=== PATIENT | male | born 1960 | race Caucasian/White ===

== ENCOUNTER 2016-08-06 16:07 | Inpatient (IN) ==
[2016-08-06] MEDS ORDERED: 0.9 % Sodium Chloride 1,000 ML ONE (16:17)
[2016-08-06] MEDS ORDERED: Naloxone 0.4 MG/ML INJ IVP ONE (16:18)
[2016-08-06] MEDS ORDERED: 0.9 % Sodium Chloride 1,000 ML IVC ONE ×3 (16:18→17:42)
--- NOTE | 2016-08-06 16:23 | Emergency Department Note ---
Disposition Clinical Impression: Renal insufficiency, Confusion Hypotension Qualifiers: Hypotension type: unspecified hypotension type Qualified Code(s): I95.9 - Hypotension, unspecified Leukocytosis Qualifiers: Leukocytosis type: unspecified Qualified Code(s): D72.829 - Elevated white blood cell count, unspecified Disposition: Admitted As Inpatient Condition: Fair Referrals: Unassigned,Provider [Non-Partnered Physician] - Forms: ED Satisfaction Letter Time of Disposition: 18:11 General Adult HPI - General Chief complaint: ED Shortness of Breath/Dyspnea Stated complaint: low BP & O2 Sats Time Seen by Provider: 08/06/16 16:12 Source: patient, EMS Mode of arrival: EMS Nursing Notes Reviewed: Yes Vital Signs Reviewed: Yes - History of Present Illness HPI Narrative: 56-year-old male who comes in complaining of somnolence. Patient was found by home health to have a blood pressure in the 70 range systolic and a low pulse ox. Squad states that they were able to get a blood pressure of in the 70s also place patient on oxygen and pulse ox came up to the mid 90s on arrival here he is awake he does report answer questions appropriately and his blood pressure is noted to be 60 systolic he is not tachycardic. 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 - Related Data Home Medications Medication Instructions Recorded Confirmed Clopidogrel [Plavix] 75 mg PO DAILY 02/04/15 07/31/15 Fenofibrate [Tricor] 145 mg PO DAILY 02/04/15 07/31/15 Phenytoin [Dilantin] 100 mg PO TID 02/04/15 07/31/15 Ferrous Gluconate 325 mg PO DAILY 07/31/15 07/31/15 Gabapentin [Neurontin] 300 mg PO TID 07/31/15 07/31/15 Hydroxyzine HCl 25 mg PO TID 07/31/15 07/31/15 Insulin LISPRO [HumaLOG] 22 - 30 units SQ TIDAC 07/31/15 07/31/15 Sertraline [Zoloft] 100 mg PO DAILY 07/31/15 07/31/15 Previous Rx's Medication Instructions Recorded Aspirin 81 mg PO DAILY #0 tab.chew 02/05/15 Insulin DETEMIR [Levemir] 26 unit SQ HS #1 vial 02/05/15 Metoprolol XL (24 HR) Succ [Toprol 12.5 mg PO DAILY #30 tab.er.24h 08/03/15 Xl] Nitroglycerin [Nitrostat] 0.4 mg SL Q4H PRN #60 tab.subl 08/03/15 Clindamycin [Cleocin] 600 mg PO Q6HR 10 Days 10/13/15 Allergies Allergy/AdvReac Type Severity Reaction Status Date / Time No Known Allergies Allergy Verified 07/31/15 14:33 Constitutional: Denies: fever, chills, weakness, weight change Eyes: Denies: eye pain, eye discharge, vision change ENT ED: Denies: ear pain, throat pain, dental pain, hearing loss, epistaxis, congestion, dysphagia Cardiovascular: Denies: chest pain, palpitations, dyspnea on exertion, edema, syncope Respiratory: Denies: cough, dyspnea, wheezes, hemoptysis, stridor Gastrointestinal: Denies: abdominal pain, nausea, vomiting, diarrhea, constipation, hematemesis, melena, hematochezia Genitourinary: Denies: urgency, dysuria, frequency, hematuria Musculoskeletal: Denies: back pain, neck pain, arthralgia, myalgia Integumentary: Denies: rash, abrasion, lesions Neurological: Denies: headache, weakness, numbness, paresthesias, confusion, abnormal gait, vertigo Psychiatric: Denies: anxiety, depression, suicidal thoughts, homicidal thoughts , auditory hallucinations, visual hallucinations Endocrine: Denies: fatigue Hematological/Lymphatic: Denies: easy bleeding, easy bruising Allergic/Immunologic: Denies: facial swelling, urticaria Past Medical History - Past Medical History Medical history: Reports: asthma, diabetes, hypertension, myocardial infarction , seizures, other Surgical history: Reports: angioplasty/stent (Cardiac as well as bilateral femoral stents.), IVC Filter, other (Left BKA, thrombectomy) Psychiatric history: Reports: anxiety - Social History Smoking Status: Current every day smoker Smokeless Tobacco Status: No Alcohol use: Reports: none Drug use: Reports: none Physical Exam - General Limitations: no limitations, other (Somnolent but easily arousable and answers questions appropriately) General appearance: alert, in no apparent distress - Head Head exam: atraumatic, normocephalic, normal inspection - Eye Eye exam: Present: normal appearance, PERRL, EOMI - ENT ENT exam: normal exam, normal oropharynx, mucous membranes moist - Neck Neck exam: Present: normal inspection, full ROM, trachea midline - Chest Chest inspection: Present: normal inspection, symmetric chest wall rise - Respiratory Respiratory exam: Present: normal lung sounds bilaterally - Cardiovascular Cardiovascular exam: Present: regular rate, normal rhythm, normal heart sounds - Abdominal Exam Abdominal exam: Present: soft, Non-Tender. Absent: tenderness, distention, guarding, rebound, rigidity - Extremities Exam Extremities exam: Present: normal inspection, full ROM. Absent: tenderness, pedal edema - Expanded Lower Extremity Exam Neurovascular/Tendon exam: Absent: motor deficit, sensory deficit, tendon deficit Gait: not tested/not observed - Back Exam Back exam: Present: normal inspection, full ROM. Absent: tenderness - Neurological Exam Neurological exam: Present: alert, oriented X3 - Psychiatric Psychiatric exam: Present: normal affect, normal mood - Skin Skin exam: Present: warm, dry, intact, normal color Course - Reevaluation(s) Reevaluation #1: 56-year-old who comes in complaining of low blood pressure low pulse ox. Patient was found by home health with a pressure of 74. His been no recent fevers according to the patient. The patient's blood pressures, he is not tachycardic. Lab work does show slight elevation in his white count of 15 chest x-ray was negative. Lactate is pending. Patient's creatinine was elevated at 1.69. Patient was given 3 L of fluid with improvement in his blood pressure to 87. Patient was given Narcan without much change in his status. Patient was given Solu-Cortef. A triple-lumen was placed in anticipation of pressors however his pressure has come up to almost 90. The differential includes sepsis we did treat as such. Also volume depletion. Time: 18:08 - Consultations Consultation #1: Discussed with , it. Time: 18:10 Vital Signs Temperature 97.9 F 08/06/16 16:10 Pulse Rate 87 08/06/16 16:10 Respiratory Rate 14 08/06/16 16:10 Blood Pressure 60/42 08/06/16 16:10 O2 Sat by Pulse Oximetry 97 08/06/16 16:10 Temperature 97.9 F 08/06/16 16:10 Pulse Rate 73 08/06/16 18:00 Respiratory Rate 16 08/06/16 18:00 Blood Pressure 87/54 08/06/16 18:00 O2 Sat by Pulse Oximetry 99 08/06/16 18:00 Oxygen Delivery Oxygen Delivery Nasal Cannula Medical Decision Making - Lab Data Lab results reviewed: Yes I reviewed the patient's lab results. Result diagrams: 08/06/16 16:53 08/06/16 16:53 Lab Results 08/06/16 08/06/16 08/06/16 Range/Units 16:38 16:53 16:53 WBC 15.1 H (4.3-11.1) K/mcL RBC 4.09 L (4.19-5.50) M/mcL Hgb 12.2 L (12.9-16.9) g/dL Hct 35.5 L (37.5-50.1) % MCV 86.8 (83.0-100.0) fL MCH 29.8 (28.0-33.3) pg MCHC 34.4 (31.6-35.5) g/dL RDW 12.8 (11.5-14.5) % Plt Count 441 H (140-400) K/mcL MPV 10.9 (9.4-12.4) fL Immature Gran % 1.3 (0-4) % Seg Neutrophils % 74.8 % Lymphocytes % 14.2 % Monocytes % 8.8 % Eosinophils % 0.5 % Basophils % 0.4 % Neutrophils # 11.3 H (1.6-8.9) K/mcL Lymphocytes # 2.1 (0.6-4.6) K/mcL Monocytes # 1.3 (0.0-1.3) K/mcL Eosinophils # 0.1 (0.0-0.6) K/mcL Basophils # 0.1 (0.0-0.2) K/mcL ABG pH 7.37 (7.32-7.45) pH Units ABG pCO2 46 H (35-45) mmHg ABG pO2 124 H (85-104) mmHg ABG HCO3 26.6 (21-27) mEQ/L ABG Total CO2 28.0 H (20-26) mEq/L ABG O2 Saturation 99 H (95-98) % ABG Base Excess 1.0 (-2.0 to 3.0) mEq/L Blood Gas Modality NC Inspired O2 28 % Sodium 139 (136-145) mEq/L Potassium 3.3 L (3.5-4.5) mEq/L Chloride 105 (98-109) mEq/L Carbon Dioxide 23 (19-29) mEq/L BUN 26 (8-26) mg/dL Creatinine 1.69 H (0.72-1.25) mg/dL Est GFR ( Amer) 51 L (> 60) Est GFR (Non-Af Amer) 42 L (> 60) BUN/Creatinine Ratio 15 (6-26) Glucose 166 H (70-99) mg/dL Calculated Osmolality 297 (280-300) Calcium 9.0 (8.6-10.8) mg/dL Troponin I (0-0.03) ng/mL B-Natriuretic Peptide (0-100) pg/mL 08/06/16 08/06/16 Range/Units 16:53 16:53 WBC (4.3-11.1) K/mcL RBC (4.19-5.50) M/mcL Hgb (12.9-16.9) g/dL Hct (37.5-50.1) % MCV (83.0-100.0) fL MCH (28.0-33.3) pg MCHC (31.6-35.5) g/dL RDW (11.5-14.5) % Plt Count (140-400) K/mcL MPV (9.4-12.4) fL Immature Gran % (0-4) % Seg Neutrophils % % Lymphocytes % % Monocytes % % Eosinophils % % Basophils % % Neutrophils # (1.6-8.9) K/mcL Lymphocytes # (0.6-4.6) K/mcL Monocytes # (0.0-1.3) K/mcL Eosinophils # (0.0-0.6) K/mcL Basophils # (0.0-0.2) K/mcL ABG pH (7.32-7.45) pH Units ABG pCO2 (35-45) mmHg ABG pO2 (85-104) mmHg ABG HCO3 (21-27) mEQ/L ABG Total CO2 (20-26) mEq/L ABG O2 Saturation (95-98) % ABG Base Excess (-2.0 to 3.0) mEq/L Blood Gas Modality Inspired O2 % Sodium (136-145) mEq/L Potassium (3.5-4.5) mEq/L Chloride (98-109) mEq/L Carbon Dioxide (19-29) mEq/L BUN (8-26) mg/dL Creatinine (0.72-1.25) mg/dL Est GFR ( Amer) (> 60) Est GFR (Non-Af Amer) (> 60) BUN/Creatinine Ratio (6-26) Glucose (70-99) mg/dL Calculated Osmolality (280-300) Calcium (8.6-10.8) mg/dL Troponin I 0.00 (0-0.03) ng/mL B-Natriuretic Peptide 26 (0-100) pg/mL - Radiology Data Radiology results reviewed: Yes I reviewed the patient's radiology results. Chest X-Ray 08/06/16 17:41 IMPRESSION: Line placement without complicating feature. D/ / Víctor Smith MD / Víctor Smith MD Interpreting Provider: Víctor Smith MD - EKG Data EKG #1 EKG shows normal: sinus rhythm Rate: normal Rhythm: NSR Interpretation: nonspecific ST-T wave changes
[2016-08-06 16:43] LABS: ABG HCO3 26.6 mEQ/L (21-27); ABG Oxygen Saturation 99 % (95-98); ABG PCO2 46 mmHg (35-45); ABG PH 7.37 pH Units (7.32-7.45); ABG PO2 124 mmHg (85-104); Blood Gas FiO2 28 %
[2016-08-06] MEDS ORDERED: Hydrocortisone Sodium Succ 100 MG/2 ML VIAL IVP ONE (16:58)
[2016-08-06 17:22] LABS: Basophils # 0.1 K/mcL (0.0-0.2); Basophils % 0.4 %; Eosinophils # 0.1 K/mcL (0.0-0.6); Eosinophils % 0.5 %; Hematocrit 35.5 % (37.5-50.1); Hemoglobin 12.2 g/dL (12.9-16.9); Immature Granulocytes % 1.3 % (0-4); Lymphocytes # 2.1 K/mcL (0.6-4.6); Lymphocytes % 14.2 %; Mean Corpuscular HGB Conc 34.4 g/dL (31.6-35.5); Mean Corpuscular Hemoglobin 29.8 pg (28.0-33.3); Mean Corpuscular Volume 86.8 fL (83.0-100.0); Mean Platelet Volume 10.9 fL (9.4-12.4); Monocytes # 1.3 K/mcL (0.0-1.3); Monocytes % 8.8 %; Neutrophils # 11.3 K/mcL (1.6-8.9); Platelet Count 441 K/mcL (140-400); Red Blood Count 4.09 M/mcL (4.19-5.50); Red Cell Distribution Width 12.8 % (11.5-14.5); Segmented Neutrophils % 74.8 %
[2016-08-06 17:36] LABS: Potassium 3.3 mEq/L (3.5-4.5)
[2016-08-06] MEDS ORDERED: Piperacillin/Tazobactam 3.375 GM in D5% in Water (Mini-Bag+) 100 ML IVPB ONE (17:36)
--- NOTE | 2016-08-06 17:44 | Emergency Department Note ---
Disposition Clinical Impression: Hypotension Qualifiers: Hypotension type: unspecified hypotension type Qualified Code(s): I95.9 - Hypotension, unspecified Disposition: Still a Patient Referrals: Unassigned,Provider [Non-Partnered Physician] - Forms: ED Satisfaction Letter General Adult HPI - General Chief complaint: ED Shortness of Breath/Dyspnea Stated complaint: low BP & O2 Sats Time Seen by Provider: 08/06/16 16:12 Source: patient, EMS Mode of arrival: EMS Limitations: no limitations, other (Somnolent but easily arousable and answers questions appropriately) - History of Present Illness Pain Scale: 10 - Related Data Home Medications Medication Instructions Recorded Confirmed Clopidogrel [Plavix] 75 mg PO DAILY 02/04/15 07/31/15 Fenofibrate [Tricor] 145 mg PO DAILY 02/04/15 07/31/15 Phenytoin [Dilantin] 100 mg PO TID 02/04/15 07/31/15 Ferrous Gluconate 325 mg PO DAILY 07/31/15 07/31/15 Gabapentin [Neurontin] 300 mg PO TID 07/31/15 07/31/15 Hydroxyzine HCl 25 mg PO TID 07/31/15 07/31/15 Insulin LISPRO [HumaLOG] 22 - 30 units SQ TIDAC 07/31/15 07/31/15 Sertraline [Zoloft] 100 mg PO DAILY 07/31/15 07/31/15 Previous Rx's Medication Instructions Recorded Aspirin 81 mg PO DAILY #0 tab.chew 02/05/15 Insulin DETEMIR [Levemir] 26 unit SQ HS #1 vial 02/05/15 Metoprolol XL (24 HR) Succ [Toprol 12.5 mg PO DAILY #30 tab.er.24h 08/03/15 Xl] Nitroglycerin [Nitrostat] 0.4 mg SL Q4H PRN #60 tab.subl 08/03/15 Clindamycin [Cleocin] 600 mg PO Q6HR 10 Days 10/13/15 Allergies Allergy/AdvReac Type Severity Reaction Status Date / Time No Known Allergies Allergy Verified 07/31/15 14:33 Constitutional: Denies: fever, chills, weakness, weight change Eyes: Denies: eye pain, eye discharge, vision change ENT ED: Denies: ear pain, throat pain, dental pain, hearing loss, epistaxis, congestion, dysphagia Cardiovascular: Denies: chest pain, palpitations, dyspnea on exertion, edema, syncope Respiratory: Denies: cough, dyspnea, wheezes, hemoptysis, stridor Gastrointestinal: Denies: abdominal pain, nausea, vomiting, diarrhea, constipation, hematemesis, melena, hematochezia Genitourinary: Denies: urgency, dysuria, frequency, hematuria Musculoskeletal: Denies: back pain, neck pain, arthralgia, myalgia Integumentary: Denies: rash, abrasion, lesions Neurological: Denies: headache, weakness, numbness, paresthesias, confusion, abnormal gait, vertigo Psychiatric: Denies: anxiety, depression, suicidal thoughts, homicidal thoughts , auditory hallucinations, visual hallucinations Endocrine: Denies: fatigue Hematological/Lymphatic: Denies: easy bleeding, easy bruising Allergic/Immunologic: Denies: facial swelling, urticaria Past Medical History - Past Medical History Medical history: Reports: asthma, diabetes, hypertension, myocardial infarction , seizures, other Surgical history: Reports: angioplasty/stent (Cardiac as well as bilateral femoral stents.), IVC Filter, other (Left BKA, thrombectomy) Psychiatric history: Reports: anxiety - Social History Smoking Status: Current every day smoker Smokeless Tobacco Status: No Alcohol use: Reports: none Drug use: Reports: none Physical Exam - General Limitations: no limitations, other (Somnolent but easily arousable and answers questions appropriately) General appearance: alert, in no apparent distress Course Course Narrative: I was involved in the placement of a central line in this patient only. Vital Signs Temperature 97.9 F 08/06/16 16:10 Pulse Rate 87 08/06/16 16:10 Respiratory Rate 14 08/06/16 16:10 Blood Pressure 60/42 08/06/16 16:10 O2 Sat by Pulse Oximetry 97 08/06/16 16:10 Temperature 97.9 F 08/06/16 16:10 Pulse Rate 77 08/06/16 17:40 Respiratory Rate 16 08/06/16 17:21 Blood Pressure 80/50 08/06/16 17:40 O2 Sat by Pulse Oximetry 99 08/06/16 17:21 Oxygen Delivery Oxygen Delivery Nasal Cannula Procedures - Central Line Placement Right IJ Central Line Inserted*: Yes Central Line Insertion: emergent Consent Obtained: written consent Procedural Pause: verify patient name and date of , timeout performed per policy, rojelio and assess the site, assemble equipment and verify supplies, perform hand hygiene Patient Placed on Monitor/Pulse Ox: Yes During the Procedure: clinician is wearing sterile gloves, cap, mask,& gown during insertion, sterile field and sterile technique are maintained, patient's face is covered with drape or mask and wearing a cap, everyone in room is wearing a mask Central Line Prep: Chlorhexidine scrub Prep the Procedure Site: apply chloraprep to the skin using a back and forth scrubbing motion, apply chloraprep for 30 seconds (upper body), 1-2 min ( femoral sites), allow prep to dry, drape the patient with a full body drape Local Anesthetic: lidocaine 1% Amount of anesthesia used (mL): 3 Ultrasound Used for Placement: Yes Central Line Lumen Inserted: triple Post Procedure: sutured in place, good blood return, all ports aspirated, flushed, capped, sterile dressing applied, guide wire removed and visualized Patient Tolerated Procedure: well, no complications Complications: none Medical Decision Making - Lab Data Result diagrams: 08/06/16 16:53 08/06/16 16:53 Lab Results 08/06/16 08/06/16 08/06/16 Range/Units 16:38 16:53 16:53 WBC 15.1 H (4.3-11.1) K/mcL RBC 4.09 L (4.19-5.50) M/mcL Hgb 12.2 L (12.9-16.9) g/dL Hct 35.5 L (37.5-50.1) % MCV 86.8 (83.0-100.0) fL MCH 29.8 (28.0-33.3) pg MCHC 34.4 (31.6-35.5) g/dL RDW 12.8 (11.5-14.5) % Plt Count 441 H (140-400) K/mcL MPV 10.9 (9.4-12.4) fL Immature Gran % 1.3 (0-4) % Seg Neutrophils % 74.8 % Lymphocytes % 14.2 % Monocytes % 8.8 % Eosinophils % 0.5 % Basophils % 0.4 % Neutrophils # 11.3 H (1.6-8.9) K/mcL Lymphocytes # 2.1 (0.6-4.6) K/mcL Monocytes # 1.3 (0.0-1.3) K/mcL Eosinophils # 0.1 (0.0-0.6) K/mcL Basophils # 0.1 (0.0-0.2) K/mcL ABG pH 7.37 (7.32-7.45) pH Units ABG pCO2 46 H (35-45) mmHg ABG pO2 124 H (85-104) mmHg ABG HCO3 26.6 (21-27) mEQ/L ABG Total CO2 28.0 H (20-26) mEq/L ABG O2 Saturation 99 H (95-98) % ABG Base Excess 1.0 (-2.0 to 3.0) mEq/L Blood Gas Modality NC Inspired O2 28 % Sodium 139 (136-145) mEq/L Potassium 3.3 L (3.5-4.5) mEq/L Chloride 105 (98-109) mEq/L Carbon Dioxide 23 (19-29) mEq/L BUN 26 (8-26) mg/dL Creatinine 1.69 H (0.72-1.25) mg/dL Est GFR ( Amer) 51 L (> 60) Est GFR (Non-Af Amer) 42 L (> 60) BUN/Creatinine Ratio 15 (6-26) Glucose 166 H (70-99) mg/dL Calculated Osmolality 297 (280-300) Calcium 9.0 (8.6-10.8) mg/dL
[2016-08-06] MEDS ORDERED: Pantoprazole 40 MG VIAL IVP STA (20:11)
[2016-08-06] MEDS ORDERED: Albuterol 2.5 MG/3 ML NEBULIZER IH PRN (20:11)
[2016-08-06] MEDS ORDERED: Acetaminophen 325 MG TABLET PO PRN (20:11)
[2016-08-06] MEDS ORDERED: *HR* Promethazine 25 MG/ML VIAL IVP PRN (20:11)
[2016-08-06] MEDS ORDERED: *HR* Morphine 2 MG/ML SYRINGE IVP PRN (20:11)
[2016-08-06] MEDS ORDERED: Nitroglycerin 0.4 MG TAB.SUBL SL PRN (20:18)
[2016-08-06] MEDS ORDERED: Benzonatate 100 MG CAPSULE PO PRN (20:18)
[2016-08-06] MEDS ORDERED: *HR* Enoxaparin 40 MG/0.4 ML SYRINGE SQ ONE (20:18)
[2016-08-06] MEDS ORDERED: Dextrose Gel 15 GM PO PRN ×2 (20:28)
[2016-08-06] MEDS ORDERED: D5% in Water 1,000 ML IV PRN (20:28)
[2016-08-06] MEDS ORDERED: *HR* Dextrose 50 % in Water (Syg) 50 ML SYRINGE IVP PRN (20:28)
[2016-08-06 20:50] LABS: Estimated Average Glucose > 355 mg/dl; Hemoglobin A1C >= 14.1 %
[2016-08-06] MEDS: 0.9 % Sodium Chloride 1,000 ML IVC SCH (20:51)
[2016-08-06] MEDS ORDERED: Insulin LISPRO 300 UNITS/3 ML VIAL SQ SCH (21:00)
[2016-08-06] MEDS ORDERED: Vancomycin 1,000 MG in D5% in Water 250 ML IVPB SCH ×2 (21:00→22:00)
[2016-08-06] MEDS ORDERED: Insulin DETEMIR 100 UNIT/ML X5UNITS SQ SCH (21:00)
[2016-08-06] MEDS: Ipratropium/Albuterol Neb 3 ML IH SCH (22:16)
[2016-08-06 22:40] LABS: Prothrombin Time 10.8 Seconds (9.4-12.1)
[2016-08-06 22:43] LABS: Activated Partial Thrombo Time 25.4 Seconds (26.0-36.0)
[2016-08-06] MEDS: Gabapentin 400 MG CAPSULE PO SCH (22:45)
[2016-08-06] MEDS: Potassium Chloride Elixir 20 MEQ/15 ML UDC PO SCH (22:45)
[2016-08-06] MEDS: Famotidine 20 MG TABLET PO SCH (22:46)
[2016-08-06 22:47] LABS: Magnesium 1.5 mg/dL (1.6-2.6)
[2016-08-06] MEDS: Nicotine 21 MG PATCH.TD24 TD SCH (22:49)
[2016-08-06 22:50] LABS: Alanine Aminotransferase 13 Units/L (0-55); Albumin 2.9 g/dL (3.5-5.0); Albumin/Globulin Ratio 1.1 (1.1-2.2); Alkaline Phosphatase 60 Units/L (38-126); Aspartate Amino Transferase 18 Units/L (5-34); BUN/Creatinine Ratio 20 (6-26); Bilirubin,Total 0.2 mg/dL (0.2-1.2); Blood Urea Nitrogen 23 mg/dL (8-26); Calcium 7.9 mg/dL (8.6-10.8); Carbon Dioxide 23 mEq/L (19-29); Chloride 110 mEq/L (98-109); Creatine Kinase 707 Units/L (30-200); Globulin 2.6 g/dL (2.4-3.5); Glucose 187 mg/dL (70-99); Osmolality,Calculated 301 (280-300); Potassium 4.1 mEq/L (3.5-4.5); Sodium 141 mEq/L (136-145); Total Protein 5.5 g/dL (6.0-8.3); eGFR For African Americans > 60 (> 60); eGFR For Non-African Americans > 60 (> 60)
[2016-08-06] MEDS: *HR* OxyCODONE Immed Rel 5 MG TABLET PO PRN (22:50)
[2016-08-06 23:11] LABS: Thyroid Stimulating Hormone 0.388 mcIU/mL (0.350-4.840)
[2016-08-06 23:37] LABS: Bilirubin,Urine Negative (Negative); Blood,Urine Small (Negative); Clarity,Urine Clear (Clear); Color,Urine Yellow (Yellow); Glucose,Urine (UA) >=1000 mg/dL (Normal); Ketones,Urine Negative (Negative); Leukocyte Esterase,Urine Negative (Negative); Nitrite,Urine Negative (Negative); Protein,Urine 30 mg/dL (Neg-Trace); Specific Gravity,Urine 1.027 (1.010-1.025); Urobilinogen,Urine Normal (Normal)
[2016-08-06 23:39] LABS: Bacteria,Urine None Seen per hpf (None-Few); Hyaline Casts,Urine None Seen per lpf (None-Few); RBC,Urine 0-3 per hpf (0-3); Squamous Epithelial Cell,Urine Many per lpf (None-Few)
[2016-08-07] MEDS: Hydrocortisone Sodium Succ 100 MG/2 ML VIAL IVP SCH ×4 (00:36→21:23)
[2016-08-07] MEDS: Piperacillin/Tazobactam 3.375 GM in D5% in Water (Mini-Bag+) 100 ML IVPB SCH ×3 (02:11→17:22)
[2016-08-07] MEDS: Potassium Chloride Elixir 20 MEQ/15 ML UDC PO SCH (02:11)
[2016-08-07] MEDS ORDERED: Calcium Gluconate 1,000 MG in D5% in Water 100 ML IVPB ONE (03:04)
[2016-08-07] MEDS ORDERED: Magnesium Sulfate 1 GM in D5% in Water 100 ML IVPB ONE (03:04)
--- NOTE | 2016-08-07 03:14 | Internal Med History&Physical ---
Date of Encounter: 08/06/16 Time of Encounter: 20:00 Assessment and Plan (1) Acute on chronic respiratory failure with hypoxia and hypercapnia Status: Acute . (2) Postural hypotension Status: Acute . (3) Autonomic dysfunction with type 2 diabetes mellitus Status: Acute . (4) Type II diabetes mellitus Status: Chronic . Qualifiers: Diabetes mellitus complication status: with neurologic complications Diabetes mellitus complication detail: with unspecified neuropathy Diabetes mellitus penitentiary insulin use: unspecified terminal make up operator insulin use status Qualified Code(s): E11.40 - Type 2 diabetes mellitus with diabetic neuropathy, unspecified (5) Toxic metabolic encephalopathy Status: Acute . (6) Delirium due to conditions classified elsewhere Status: Acute . (7) SIRS due to infectious process with acute organ dysfunction Status: Acute . (8) Diabetic peripheral autonomic neuropathy Status: Acute . Qualifiers: Diabetes mellitus type: type 2 Qualified Code(s): E11.43 - Type 2 diabetes mellitus with diabetic autonomic (poly)neuropathy (9) At risk for accident in home Status: Acute . (10) At risk for acid-base imbalance Status: Acute . (11) At risk for abnormal blood glucose level Status: Acute . (12) At risk for abnormal gastrointestinal motility Status: Acute . (13) At risk for abuse of opiates Status: Acute . (14) Altered mental status Status: Acute . Qualifiers: Altered mental status type: somnolence Qualified Code(s): R40.0 - Somnolence (15) CAD (coronary artery disease) Status: Chronic . Qualifiers: Coronary Disease-Associated Artery/Lesion type: bypass graft [place] vs. transplanted heart: [place] heart Associated angina: without angina Qualified Code(s): I25.810 - Atherosclerosis of coronary artery bypass graft(s) without angina pectoris (16) HLD (hyperlipidemia) Status: Chronic . Qualifiers: Hyperlipidemia type: mixed hyperlipidemia Qualified Code(s): E78.2 - Mixed hyperlipidemia (17) PVD (peripheral vascular disease) Status: Chronic . (18) Seizure Status: Chronic . Internal Medicine - H&P: HPI Chief complaint: Blood pressure. Low oxygen saturation. Confusion. Admitted From: Emergency Dept Plans for Post Hospital Care: Home History of present illness: Mr. 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 Patient is admitted to the [facility] high in the emergency department which presents by EMS services from home with complaints of difficulty breathing. Patient presents with reports of low blood pressure and low pulse oximetry measurement setting. Had been complaining of some elliptical else obtained blood pressure noting a 70 systolic range, pulse ox. EMS services were called to the home and they were able to manage her blood pressure in the 70 systolic range. Patient was placed on oxygen and pulse oximetry aime to the 90% range. Upon arrival to the ED was no longer somnolent awake and able to answer questions appropriately. Blood pressure was still noted to be roughly 60-70 systolic. Pulse rate however was normal and not tachycardic. Findings the ED: Temperature 97.9 pulse 70-87 respirations 14-16 BP 60-87/42-54 O2 saturation 97-99% per nasal cannula. WBC 15.1 hemoglobin 12.2 platelets 441, 000. Differential showed an increase in neutrophils. Arterial blood gas pH 7.37 PCO2 46 PO2 124 bicarbonate 26.6. Saturation 99%. Liters per nasal cannula. Metabolic panel noted a potassium of 3.3 sodium 139. BUN 26 creatinine 1.69. GFR 42. Glucose 166 osmolality 297. Troponin 0.0. BNP 26. EKG normal sinus rhythm. No acute ischemic changes. Chest x-ray revealed no acute or active cardiopulmonary process. Preliminary impression suggests acute alteration in mental status with evidence of combined severe hypoxemia and severe hypotension. Presentation was not complicated by tachycardia. This situation raises questions of possible adrenal insufficiency versus diabetic autonomic dysfunction. Patient has a significant history of standing medical treatment plant pertained to his diabetes maintenance and associated complications. Occult infection also will be investigated fully. The patient presents at increased risk for further acute clinical decline and morbidity given his presenting concerns findings and comorbid conditions. Treatment will progress comprehensively. Cumulative laboratory and radiographic data base was reviewed, considered and discussed. Pertinent ancillary medical records including ECW and PCI documentation was reviewed and considered. Given the patient's presenting concerns, past medical history, clinical findings and symptoms, he is admitted at this time will undergo further evaluation and disposition. Orders were written as per the computerized physician special order jeweler system.......................................................................... .................... Consultative opinions will be sought as clinical circumstances justify. Pain management needs will be addressed. Laboratory and radiographic data base will be updated as appropriate. Studies include: Cultures of blood urine sputum, pt,inr,aptt, prolactin,cpk, ammonia, cardiac injury panel, BNP, metabolic and hematologic panel, magnesium, phosphorus, ion calcium, thyroid panel, cortisol, ACTH, UA, UDS, lipid profile, A1c, C-peptide, CRP, sedimentation rate, respiratory infection profile, respiratory virus panel, blood gas, lactic acid, serologies, etc. Precautions: Aspiration, fall, seizure, delirium protocol/surveillance initiated. Telemetry with continuous hemodynamic monitoring and pulse oximetry initiated. Orthostatic vital signs. Empiric antibiotic coverage: Intravenous vancomycin and Zosyn pending culture data. Special studies: CT/CTA chest, chest x-ray, telemetry, EKG, echocardiogram. Pulmonary toilet: Incentive spirometry, aerosol bronchodilator, mucolytic, antitussive, supplemental oxygen. Corticosteroid therapy. CPAP/BiPAP supplemental oxygen delivery. Aerosol Mucomyst therapy. Fluid and electrolyte repletion efforts will proceed. Careful attention to fluid balance and renal recovery will be emphasized. Avoidance of nephrotoxic exposure and adverse drug drug interaction in the setting of impaired renal function will be monitored closely. Acute coronary syndrome protocol/surveillance initiated. DVT and PUD prophylaxis initiated: PPI therapy, intermittent pneumatic cuffs. Subcutaneous heparin was held due to thrombocytopenia. Early ambulation will be encouraged. Immunization updates recommended. Influenza and pneumococcal vaccinations as part of ongoing preventative healthcare recommendations strongly recommended. Smoking cessation counseling briefly addressed. Patient accepts nicotine substitution during this hospitalization. Advanced care directive discussion briefly addressed. Patient does not declare any healthcare restrictions at this time. Cardiovascular risk appraisal and cardiovascular risk reduction efforts will be emphasized. Physical and occupational therapy may be counseled to evaluate patient's functional capacity and progress mobility if circumstances justify. Sliding scale insulin coverage, ADA dietary restraint and schedule an as-needed basis fingerstick glucose assessments were initiated. Nutrition/diabetes education counseling may be considered as circumstances justify. Outpatient medication schedules will be reviewed, confirmed and facilitated as appropriate. Reconciliation of home treatments including adjustments, substitutions and reintroduction into the treatment regimen will address necessary maintenance therapies for chronic pre-existing medical conditions. Plan of care has been reviewed and discussed in detail with the patient. Questions addressed. Hospital course dictated by clinical findings, treatment response and potential consultative interventions. Patient is at risk for further acute clinical decline and morbidity due to his presenting chief complaints and comorbid conditions. Condition is serious. Prognosis is guarded. CODE STATUS is full. Past Med Surg Social Fam HX - Past Medical History Source: old records reviewed Medical history: asthma, CHF, coronary artery disease, diabetes, hyperlipidemia , hypertension, myocardial infarction, seizures, other Psychiatric history: anxiety, depression, other - Past Surgical History Surgical History: angioplasty/stent, coronary bypass (CABG), IVC Filter, orthopedic, other, vascular surgery (Right BKA. Thrombectomy), other - Social History Smoking Status: Current every day smoker (38pk-yrs) Packs per day: 1.5 Smokeless Tobacco Status: No Alcohol use: none Drug use: none Occupational status: unemployed Current living situation: Home - Independent Activity Level: Independent ambulation, Mostly sedentary Recent Out of Country Travel Within the Last 8 Weeks: No Exposure or Possible Exposure to Illness During Travel: No - Family History Father Living Status: Still Living Hx Family Cardiac Disorders: Yes (CABG) Hx Family Endocrine Disorder: Yes Internal Medicine - H&P: Meds Clopidogrel [Plavix] 75 mg PO DAILY 02/04/15 [History] Fenofibrate [Tricor] 145 mg PO DAILY 02/04/15 [History] Phenytoin [Dilantin] 100 mg PO TID 02/04/15 [History] Aspirin 81 mg PO DAILY #0 tab.chew 02/05/15 [Rx] Insulin LISPRO [HumaLOG] 22 - 30 units SQ TIDAC 07/31/15 [History] Sertraline [Zoloft] 100 mg PO DAILY 07/31/15 [History] Metoprolol XL (24 HR) Succ [Toprol Xl] 12.5 mg PO DAILY #30 tab.er.24h 08/03/15 [Rx] Gabapentin 800 mg PO TID 08/06/16 [History] Nitroglycerin [Nitrostat] 0.4 mg SL Q5M PRN 08/06/16 [History] Simvastatin [Zocor] 40 mg PO HS 08/06/16 [History] Insulin DETEMIR [Levemir] 25 unit SQ BID 30 Days 08/08/16 [Rx] Allergies No Known Allergies Allergy (Verified 07/31/15 14:33) ROS unobtainable: due to mental status All Systems PM: A 10-system review of systems was performed and is negative for pertinent findings except as documented above in the HPI. - Constitutional Constitutional: as per HPI - EENT Eyes: as per HPI Ears: as per HPI Nose, mouth and throat: as per HPI - Cardiovascular Cardiovascular ROS IM: as per HPI - Respiratory Respiratory: as per HPI - Gastrointestinal Gastrointestinal: as per HPI - Genitourinary Genitourinary ROS male: as per HPI - Musculoskeletal Musculoskeletal ROS IM: as per HPI - Integumentary Integumentary IM: as per HPI - Neurological Neurological ROS: as per HPI - Psychiatric Psychiatric: as per HPI - Endocrine Endocrine IM: as per HPI - Hematologic/Lymphatic Hematologic/Lymphatic: as per HPI - Allergic/Immunologic Allergic/Immunologic: as per HPI - Constitutional Vitals: Temp Pulse Resp BP Pulse Ox 98.2 F 91 16 106/62 96 08/07/16 00:23 08/07/16 00:23 08/07/16 00:23 08/07/16 00:23 08/07/16 00:23 General appearance: Present: disheveled, A&O X 2, mild distress. Absent: cooperative Exam: Somnolent but easily arousable to noxious stimuli. - Head Head exam: Present: atraumatic, normocephalic - Eye Eye exam: Present: EOMI, PERRL, conjuntiva pink, sclera anicteric Pupils: Present: normal accommodation, PERRL - ENT ENT exam: Present: mucous membranes dry, normal oropharynx - Neck Neck exam general surgery: Present: full ROM, supple, trachea midline. Absent: lymphadenopathy - Respiratory Respiratory exam: Present: decreased breath sounds, rhonchi, wheezes. Absent: accessory muscle use, rales - Cardiovascular Cardiovascular exam: Present: distant heart sounds, RRR, +S1, +S2. Absent: diastolic murmur, gallop, rubs, systolic murmur - GI/Abdominal GI/Abdominal exam: Present: normal bowel sounds, soft, no peritoneal signs. Absent: distended, tenderness - Extremities Exam Extremities exam: Present: warm, radial pulses palpable and symetrical. Absent : calf tenderness, cyanotic, pedal edema - Neurological Exam Neurological exam: Present: alert, altered, CN II-XII intact, motor sensory deficit, oriented X3. Absent: pronater drift, facial droop, speech deficit - Psychiatric Psychiatric exam: Present: anxious, flat affect - Skin Skin exam: Present: dry, intact, warm Internal Med - H&P Results - Labs CBC & Chem 7: 08/08/16 06:15 08/08/16 06:15 Labs: BMP 08/06/16 22:25 Sodium 141 Potassium 4.1 Chloride 110 H Carbon Dioxide 23 BUN 23 Creatinine 1.13 Glucose 187 H Calcium 7.9 L Cardiac Enzymes 08/06/16 Range/Units 22:25 Troponin I 0.00 (0-0.03) ng/mL Liver Function 08/06/16 Range/Units 22:25 Total Bilirubin 0.2 (0.2-1.2) mg/dL AST 18 (5-34) Units/L ALT 13 (0-55) Units/L Alkaline Phosphatase 60 (38-126) Units/L Albumin 2.9 L (3.5-5.0) g/dL Urine 08/06/16 Range/Units 23:27 Urine Color Yellow (Yellow) Urine Clarity Clear (Clear) Urine pH 6.0 (5.0-8.0) pH Units Ur Specific [place] 1.027 H (1.010-1.025) Urine Protein 30 H (Neg-Trace) mg/dL Urine Glucose (UA) >=1000 H (Normal) mg/dL - Impressions ITS Impressions Chest CTA 08/06/16 20:08 IMPRESSION: No evidence of pulmonary embolism or acute pulmonary abnormality. D/ / Josué Merrill MD / Josué Merrill MD Interpreting Provider: Josué Merrill MD Vital Signs Temp Pulse Resp BP Pulse Ox 08/07/16 00:23 98.2 F 91 16 106/62 96 08/06/16 22:32 97.4 F L 80 19 95/57 94 L 08/06/16 22:16 18 98 08/06/16 19:31 71 16 87/58 99 08/06/16 19:03 83 16 118/97 100 08/06/16 18:50 83/56 08/06/16 18:35 16 79/54 08/06/16 18:20 72 16 93/33 97 08/06/16 18:00 73 16 87/54 99 08/06/16 17:50 70 16 74/52 97 08/06/16 17:40 77 80/50 08/06/16 17:30 84/50 08/06/16 17:21 72 16 74/51 99 08/06/16 17:09 74 72/50 08/06/16 17:01 73 16 75/51 96 08/06/16 16:55 74 68/48 08/06/16 16:45 74 16 71/46 98 08/06/16 16:40 78 64/43 08/06/16 16:38 74 16 70/44 97 08/06/16 16:30 82 16 69/48 96 08/06/16 16:20 82 16 69/41 08/06/16 16:17 83 62/40 08/06/16 16:10 97.9 F 87 14 60/42 95 Intake and Output 08/06/16 08/06/16 08/07/16 15:59 23:59 07:59 Intake Total 3100 / 3100 Output Total 310 / 310 Balance 2790 / 2790 Intake: IV Fluids 3100 / 3100 0.9 % Sodium Chloride 1, 3000 / 3000 000 ML @ 3750 mls/hr IVC .Q16M ONE Rx#:[id number] Zosyn 3.375 GM In 100 / 100 Dextrose 5% (Minibag+) 100 ML 100 ML @ 25 mls/hr IVPB ONCE ONE Rx#: [id number] Output: Urine 310 / 310 Other: Weight 69.3 kg Blood Glucose* 196 Short CBC 08/06/16 Range/Units 16:53 WBC 15.1 H (4.3-11.1) K/mcL Hgb 12.2 L (12.9-16.9) g/dL Hct 35.5 L (37.5-50.1) % Plt Count 441 H (140-400) K/mcL Neutrophils # 11.3 H (1.6-8.9) K/mcL BMP 08/06/16 08/06/16 Range/Units 22:25 16:53 Sodium 141 139 (136-145) mEq/L Potassium 4.1 3.3 L (3.5-4.5) mEq/L Chloride 110 H 105 (98-109) mEq/L Carbon Dioxide 23 23 (19-29) mEq/L BUN 23 26 (8-26) mg/dL Creatinine 1.13 1.69 H (0.72-1.25) mg/dL Glucose 187 H 166 H (70-99) mg/dL Calcium 7.9 L 9.0 (8.6-10.8) mg/dL Cardiac Enzymes 08/06/16 08/06/16 Range/Units 22:25 16:53 Troponin I 0.00 0.00 (0-0.03) ng/mL Liver Function 08/06/16 Range/Units 22:25 Total Bilirubin 0.2 (0.2-1.2) mg/dL AST 18 (5-34) Units/L ALT 13 (0-55) Units/L Alkaline Phosphatase 60 (38-126) Units/L Albumin 2.9 L (3.5-5.0) g/dL Urine 08/06/16 Range/Units 23:27 Urine Color Yellow (Yellow) Urine Clarity Clear (Clear) Urine pH 6.0 (5.0-8.0) pH Units Ur Specific [place] 1.027 H (1.010-1.025) Urine Protein 30 H (Neg-Trace) mg/dL Urine Glucose (UA) >=1000 H (Normal) mg/dL Abnormal lab results WBC 15.1 K/mcL (4.3-11.1) H 08/06/16 16:53 RBC 4.09 M/mcL (4.19-5.50) L 08/06/16 16:53 Hgb 12.2 g/dL (12.9-16.9) L 08/06/16 16:53 Hct 35.5 % (37.5-50.1) L 08/06/16 16:53 Plt Count 441 K/mcL (140-400) H 08/06/16 16:53 Neutrophils # 11.3 K/mcL (1.6-8.9) H 08/06/16 16:53 APTT 25.4 Seconds (26.0-36.0) L 08/06/16 22:25 D-Dimer 571 ng/mLFEU (0-500) H 08/06/16 22:25 ABG pCO2 46 mmHg (35-45) H 08/06/16 16:38 ABG pO2 124 mmHg (85-104) H 08/06/16 16:38 ABG Total CO2 28.0 mEq/L (20-26) H 08/06/16 16:38 ABG O2 Saturation 99 % (95-98) H 08/06/16 16:38 Chloride 110 mEq/L (98-109) H 08/06/16 22:25 Glucose 187 mg/dL (70-99) H 08/06/16 22:25 POC Glucose 196 (58-89) H 08/06/16 21:24 Hemoglobin A1c >= 14.1 % (-5.6) H 08/06/16 16:53 Calculated Osmolality 301 (280-300) H 08/06/16 22:25 Calcium 7.9 mg/dL (8.6-10.8) L 08/06/16 22:25 Magnesium 1.5 mg/dL (1.6-2.6) L 08/06/16 22:25 Creatine Kinase 707 Units/L (30-200) H 08/06/16 22:25 Serum Total Protein 5.5 g/dL (6.0-8.3) L 08/06/16 22:25 Albumin 2.9 g/dL (3.5-5.0) L 08/06/16 22:25 Ur Specific [place] 1.027 (1.010-1.025) H 08/06/16 23:27 Urine Protein 30 mg/dL (Neg-Trace) H 08/06/16 23:27 Urine Glucose (UA) >=1000 mg/dL (Normal) H 08/06/16 23:27 Urine Blood Small (Negative) H 08/06/16 23:27 Urine Microscopic WBC 3-5 per hpf (0-3) H 08/06/16 23:27 Ur Squamous Epith Cells Many per lpf (None-Few) H 08/06/16 23:27 Allergies Allergy/AdvReac Type Severity Reaction Status Date / Time No Known Allergies Allergy Verified 07/31/15 14:33 Laboratory Results WBC 15.1 K/mcL (4.3-11.1) H 08/06/16 16:53 RBC 4.09 M/mcL (4.19-5.50) L 08/06/16 16:53 Hgb 12.2 g/dL (12.9-16.9) L 08/06/16 16:53 Hct 35.5 % (37.5-50.1) L 08/06/16 16:53 MCV 86.8 fL (83.0-100.0) 08/06/16 16:53 MCH 29.8 pg (28.0-33.3) 08/06/16 16:53 MCHC 34.4 g/dL (31.6-35.5) 08/06/16 16:53 RDW 12.8 % (11.5-14.5) 08/06/16 16:53 Plt Count 441 K/mcL (140-400) H 08/06/16 16:53 MPV 10.9 fL (9.4-12.4) 08/06/16 16:53 Immature Gran % 1.3 % (0-4) 08/06/16 16:53 Seg Neutrophils % 74.8 % 08/06/16 16:53 Lymphocytes % 14.2 % 08/06/16 16:53 Monocytes % 8.8 % 08/06/16 16:53 Eosinophils % 0.5 % 08/06/16 16:53 Basophils % 0.4 % 08/06/16 16:53 Neutrophils # 11.3 K/mcL (1.6-8.9) H 08/06/16 16:53 Lymphocytes # 2.1 K/mcL (0.6-4.6) 08/06/16 16:53 Monocytes # 1.3 K/mcL (0.0-1.3) 08/06/16 16:53 Eosinophils # 0.1 K/mcL (0.0-0.6) 08/06/16 16:53 Basophils # 0.1 K/mcL (0.0-0.2) 08/06/16 16:53 PT 10.8 Seconds (9.4-12.1) 08/06/16 22:25 INR 1.0 08/06/16 22:25 APTT 25.4 Seconds (26.0-36.0) L 08/06/16 22:25 D-Dimer 571 ng/mLFEU (0-500) H 08/06/16 22:25 ABG pH 7.37 pH Units (7.32-7.45) 08/06/16 16:38 ABG pCO2 46 mmHg (35-45) H 08/06/16 16:38 ABG pO2 124 mmHg (85-104) H 08/06/16 16:38 ABG HCO3 26.6 mEQ/L (21-27) 08/06/16 16:38 ABG Total CO2 28.0 mEq/L (20-26) H 08/06/16 16:38 ABG O2 Saturation 99 % (95-98) H 08/06/16 16:38 ABG Base Excess 1.0 mEq/L (-2.0 to 3.0) 08/06/16 16:38 Blood Gas Modality NC 08/06/16 16:38 Inspired O2 28 % 08/06/16 16:38 Sodium 141 mEq/L (136-145) 08/06/16 22:25 Potassium 4.1 mEq/L (3.5-4.5) 08/06/16 22:25 Chloride 110 mEq/L (98-109) H 08/06/16 22:25 Carbon Dioxide 23 mEq/L (19-29) 08/06/16 22:25 BUN 23 mg/dL (8-26) 08/06/16 22:25 Creatinine 1.13 mg/dL (0.72-1.25) 08/06/16 22:25 Est GFR ( Amer) > 60 (> 60) 08/06/16 22:25 Est GFR (Non-Af Amer) > 60 (> 60) 08/06/16 22:25 BUN/Creatinine Ratio 20 (6-26) 08/06/16 22:25 Glucose 187 mg/dL (70-99) H 08/06/16 22:25 POC Glucose 196 (58-89) H 08/06/16 21:24 Est Mean Plasma Glucose > 355 mg/dl 08/06/16 16:53 Hemoglobin A1c >= 14.1 % (-5.6) H 08/06/16 16:53 Calculated Osmolality 301 (280-300) H 08/06/16 22:25 Lactic Acid 1.7 mmol/L (0.5-2.2) 08/06/16 18:10 Calcium 7.9 mg/dL (8.6-10.8) L 08/06/16 22:25 Phosphorus 3.0 mg/dL (2.3-4.7) 08/06/16 22:25 Magnesium 1.5 mg/dL (1.6-2.6) L 08/06/16 22:25 Total Bilirubin 0.2 mg/dL (0.2-1.2) 08/06/16 22:25 AST 18 Units/L (5-34) 08/06/16 22:25 ALT 13 Units/L (0-55) 08/06/16 22:25 Alkaline Phosphatase 60 Units/L (38-126) 08/06/16 22:25 Creatine Kinase 707 Units/L (30-200) H 08/06/16 22:25 Troponin I 0.00 ng/mL (0-0.03) 08/06/16 22:25 B-Natriuretic Peptide 26 pg/mL (0-100) 08/06/16 16:53 Serum Total Protein 5.5 g/dL (6.0-8.3) L 08/06/16 22:25 Albumin 2.9 g/dL (3.5-5.0) L 08/06/16 22:25 Globulin 2.6 g/dL (2.4-3.5) 08/06/16 22:25 Albumin/Globulin Ratio 1.1 (1.1-2.2) 08/06/16 22:25 TSH 0.388 mcIU/mL (0.350-4.840) 08/06/16 22:25 Urine Color Yellow (Yellow) 08/06/16 23:27 Urine Clarity Clear (Clear) 08/06/16 23:27 Urine pH 6.0 pH Units (5.0-8.0) 08/06/16 23:27 Ur Specific [place] 1.027 (1.010-1.025) H 08/06/16 23:27 Urine Protein 30 mg/dL (Neg-Trace) H 08/06/16 23:27 Urine Glucose (UA) >=1000 mg/dL (Normal) H 08/06/16 23:27 Urine Ketones Negative mg/dL (Negative) 08/06/16 23:27 Urine Blood Small (Negative) H 08/06/16 23:27 Urine Nitrite Negative (Negative) 08/06/16 23:27 Urine Bilirubin Negative (Negative) 08/06/16 23:27 Urine Urobilinogen Normal mg/dL (Normal) 08/06/16 23:27 Ur Leukocyte Esterase Negative (Negative) 08/06/16 23:27 Urine Microscopic RBC 0-3 per hpf (0-3) 08/06/16 23:27 Urine Microscopic WBC 3-5 per hpf (0-3) H 08/06/16 23:27 Ur Squamous Epith Cells Many per lpf (None-Few) H 08/06/16 23:27 Urine Bacteria None Seen per hpf (None-Few) 08/06/16 23:27 Hyaline Casts None Seen per lpf (None-Few) 08/06/16 23:27 Ur Culture Indicated? NO (NO) 08/06/16 23:27 Impressions Chest X-Ray 08/06/16 17:41 IMPRESSION: Line placement without complicating feature. D/ / Víctor Smith MD / Víctor Smith MD Interpreting Provider: Víctor Smith MD Chest CTA 08/06/16 20:08
[2016-08-07 04:02] LABS: C-Reactive Protein 8 mg/L (Less than 5); Chol/HDL Ratio 6.6 (0-4.9); Cholesterol 251 mg/dL (< 200); HDL Cholesterol 38 mg/dL (40-59); Triglycerides 430 mg/dL (< 150)
[2016-08-07 04:43] LABS: Amphetamine Screen,Urine Negative ng/mL (Cutoff=1000); Barbiturate Screen,Urine Negative ng/mL (Cutoff=200); Benzodiazepines Screen,Urine Negative ng/mL (Cutoff=200); Cannabinoid Screen,Urine Negative ng/mL (Cutoff = 50); Cocaine Screen,Urine Negative ng/mL (Cutoff= 300); Opiate Screen,Urine Negative ng/mL (Cutoff=300); Phencyclidine Screen,Urine Negative ng/mL (Cutoff=25)
[2016-08-07] MEDS: Ipratropium/Albuterol Neb 3 ML IH SCH ×4 (04:47→22:16)
[2016-08-07] MEDS ORDERED: *HR* Enoxaparin 40 MG/0.4 ML SYRINGE SQ SCH (06:00)
[2016-08-07] MEDS ORDERED: Insulin LISPRO 300 UNITS/3 ML VIAL SQ SCH ×2 (07:30→21:00)
[2016-08-07] MEDS ORDERED: Dextrose Gel 15 GM PO PRN ×2 (08:52)
[2016-08-07] MEDS ORDERED: *HR* Dextrose 50 % in Water (Syg) 50 ML SYRINGE IVP PRN (08:52)
[2016-08-07] MEDS ORDERED: Insulin DETEMIR 100 UNIT/ML X5UNITS SQ ONE (08:52)
[2016-08-07] MEDS ORDERED: D5% in Water 1,000 ML IV PRN (08:52)
[2016-08-07] MEDS ORDERED: Aspirin 81 MG TAB.CHEW PO SCH (09:00)
[2016-08-07] MEDS ORDERED: Isosorbide MONOnitrate (24 HR) 30 MG TAB.ER.24H PO SCH (09:00)
[2016-08-07] MEDS ORDERED: Metoprolol XL (24 HR) Succ 25 MG TAB.ER.24H PO SCH (09:00)
[2016-08-07 09:16] LABS: Adenovirus Not Detected (Not Detect); Bordetella Pertussis Not Detected (Not Detect); Chlamydophila pneumoniae Not Detected (Not Detect); Coronavirus 229E Not Detected (Not Detect); Coronavirus HKU1 Not Detected (Not Detect); Coronavirus NL63 Not Detected (Not Detect); Coronavirus OC43 Not Detected (Not Detect); Human Metapneumovirus Not Detected (Not Detect); Human Rhinovirus/Enterovirus Not Detected (Not Detect); Influenza A Subtype 2009 H1 Not Detected (Not Detect); Influenza A Untypeable Not Detected (Not Detect); Influenza B Not Detected (Not Detect); Mycoplasma pneumoniae Not Detected (Not Detect); Parainfluenza Virus 1 Not Detected (Not Detect); Parainfluenza Virus 2 Not Detected (Not Detect); Parainfluenza Virus 3 Not Detected (Not Detect); Parainfluenza Virus 4 Not Detected (Not Detect); Respiratory Syncytial Virus Not Detected (Not Detect)
[2016-08-07] MEDS: Fenofibrate 54 MG TABLET PO SCH (09:16)
[2016-08-07] MEDS: Gabapentin 400 MG CAPSULE PO SCH (09:17)
[2016-08-07] MEDS: Famotidine 20 MG TABLET PO SCH ×2 (09:17→21:22)
[2016-08-07] MEDS: Nicotine 21 MG PATCH.TD24 TD SCH (09:21)
[2016-08-07] MEDS: Insulin LISPRO 300 UNITS/3 ML VIAL SQ SCH ×3 (09:36→17:23)
--- NOTE | 2016-08-07 09:54 | Internal Med Progress Note ---
Date of Encounter: 08/07/16 Time of Encounter: 09:49 - Assessment and plan (1) Hypotension Current Visit: Yes Status: Acute Assessment and plan: Noted to have significant hypotension upon arrival in the emergency room-60s over 40s. Patient has had a previous hospitalization with similar presentation about one year ago with negative workup. Hypotension could be related to use of antihypertensives/dehydration/autonomic neuropathy due to diabetes. Given his mild leukocytosis, sepsis may need to be considered. Blood pressure is currently improving with IV fluids; patient has also been started on IV albumin and along with IV steroids, plan to taper these off. No evidence of focal infection at this time. Continue IV antibiotics until blood culture results. Antihypertensives-beta geraldo, YAIR inhibitor and Imdur have been held at this time. Check 2-D echocardiogram. Qualifiers: Hypotension type: hypotension due to drug Qualified Code(s): I95.2 - Hypotension due to drugs (2) Leukocytosis Current Visit: Yes Status: Acute Assessment and plan: To rule out infection. Continue IV antibiotics-vancomycin and Zosyn and follow up blood cultures. Repeat labs today. Qualifiers: Leukocytosis type: unspecified Qualified Code(s): D72.829 - Elevated white blood cell count, unspecified (3) Acute encephalopathy Current Visit: Yes Status: Resolved Assessment and plan: Likely hypoxic/metabolic. Currently improved, at baseline mental status. (4) Acute respiratory failure with hypoxia Current Visit: Yes Status: Resolved Assessment and plan: Noted to be hypoxic upon arrival to the emergency room, likely related to altered mental status. Currently saturating well on room air. Does not use oxygen at home. (5) Seizure disorder Current Visit: Yes Status: Chronic Assessment and plan: Has remained seizure-free for the last 2 years since initiation of Dilantin per patient. Continue home dose of Dilantin. (6) Renal insufficiency Current Visit: Yes Status: Resolved Assessment and plan: Related to hypotension and dehydration. Improving with IV hydration. (7) CAD (coronary artery disease) Current Visit: Yes Status: Chronic Assessment and plan: Aspirin is currently held due to recent procedure of epidural injection for pain management. Beta geraldo and YAIR inhibitor are held due to hypotension. Lipid profile shows elevated triglycerides and cholesterol. Continue statin and fenofibrate. Qualifiers: Coronary Disease-Associated Artery/Lesion type: bypass graft [place] vs. transplanted heart: [place] heart Associated angina: without angina Qualified Code(s): I25.810 - Atherosclerosis of coronary artery bypass graft(s) without angina pectoris (8) DM2 (diabetes mellitus, type 2) Current Visit: Yes Status: Chronic Assessment and plan: Patient is noted to have uncontrolled diabetes due to medical noncompliance. Hemoglobin A1c is greater than 14%. Patient also has steroid-induced hyperglycemia at this time. Continue to monitor blood sugars closely, will increase the dose of basal insulin and sliding scale insulin. Diabetic diet. Risk of complications high. Qualifiers: Diabetes mellitus complication status: with hyperglycemia Diabetes mellitus skilled nursing insulin use: with skilled nursing use Qualified Code(s): E11.65 - Type 2 diabetes mellitus with hyperglycemia; Z79.4 - terminal clerk (current) use of insulin (9) HLD (hyperlipidemia) Current Visit: Yes Status: Chronic Qualifiers: Hyperlipidemia type: mixed hyperlipidemia Qualified Code(s): E78.2 - Mixed hyperlipidemia - Subjective Interval history: Lying in bed comfortably. Reports no chest pain, cough, shortness of breath. No diarrhea or abdominal pain. Blood sugars at home run between 300 and 500, he does not remember to check regularly or take insulin regularly; - Constitutional Vitals: Temp Pulse Resp BP Pulse Ox 98.1 F 81 16 93/63 94 L 08/07/16 07:15 08/07/16 07:15 08/07/16 07:15 08/07/16 07:15 08/07/16 07:15 General appearance: Present: A&O X 3, answers questions appropriately - Head Head exam: Present: atraumatic, normocephalic - Neck Neck exam general surgery: Present: supple, trachea midline. Absent: lymphadenopathy - Respiratory Respiratory exam: Present: CTAB. Absent: accessory muscle use, rales, rhonchi, wheezes - Cardiovascular Cardiovascular exam: Present: RRR, +S1, +S2. Absent: diastolic murmur, gallop, rubs, systolic murmur - GI/Abdominal GI/Abdominal exam: Present: normal bowel sounds, soft, no peritoneal signs. Absent: distended, tenderness - Extremities Exam Extremities exam: Present: pedal edema (trace in right leg), warm, radial pulses palpable and symetrical. Absent: calf tenderness, cyanotic Additional comments: left leg BKA, stump clean - Neurological Exam Neurological exam: Present: CN II-XII intact, oriented X3, no focal deficits. Absent: pronater drift, facial droop, speech deficit - Skin Skin exam: Present: dry, intact Internal Medicine: Result - Labs CBC & Chem 7: 08/06/16 16:53 08/06/16 22:25 Labs: BMP 08/06/16 22:25 Sodium 141 Potassium 4.1 Chloride 110 H Carbon Dioxide 23 BUN 23 Creatinine 1.13 Glucose 187 H Calcium 7.9 L Cardiac Enzymes 08/06/16 08/07/16 08/07/16 Range/Units 22:25 03:30 07:54 Troponin I 0.00 0.00 0.01 (0-0.03) ng/mL Liver Function 08/06/16 Range/Units 22:25 Total Bilirubin 0.2 (0.2-1.2) mg/dL AST 18 (5-34) Units/L ALT 13 (0-55) Units/L Alkaline Phosphatase 60 (38-126) Units/L Albumin 2.9 L (3.5-5.0) g/dL Urine 08/06/16 Range/Units 23:27 Urine Color Yellow (Yellow) Urine Clarity Clear (Clear) Urine pH 6.0 (5.0-8.0) pH Units Ur Specific [place] 1.027 H (1.010-1.025) Urine Protein 30 H (Neg-Trace) mg/dL Urine Glucose (UA) >=1000 H (Normal) mg/dL - ABG Interpretation ABG results: ABG ABG pH 7.37 pH Units (7.32-7.45) 08/06/16 16:38 ABG pCO2 46 mmHg (35-45) H 08/06/16 16:38 ABG pO2 124 mmHg (85-104) H 08/06/16 16:38 ABG O2 Saturation 99 % (95-98) H 08/06/16 16:38 PT/INR, D-dimer PT 10.8 Seconds (9.4-12.1) 08/06/16 22:25 D-Dimer 571 ng/mLFEU (0-500) H 08/06/16 22:25 - Impressions Impressions Chest CTA 08/06/16 20:08 IMPRESSION: No evidence of pulmonary embolism or acute pulmonary abnormality. D/ / 08/07/2016 08:11:51 Josué Merrill MD / Hilaria Rodriguez Interpreting Provider: Josué Merrill MD Consult Discharge Plan - Plan Referrals: Santiago Altamirano MD [Primary Care Provider] -
[2016-08-07] MEDS: Vancomycin 1,000 MG in D5% in Water 250 ML IVPB SCH ×2 (15:36→22:23)
[2016-08-07] MEDS: *HR* OxyCODONE Immed Rel 5 MG TABLET PO PRN (15:36)
[2016-08-07 16:29] LABS: Basophils % 0.2 %; Eosinophils # 0.1 K/mcL (0.0-0.6); Eosinophils % 0.7 %; Immature Granulocytes % 0.5 % (0-4); Lymphocytes # 4.4 K/mcL (0.6-4.6); Lymphocytes % 26.3 %; Mean Corpuscular HGB Conc 33.1 g/dL (31.6-35.5); Mean Corpuscular Hemoglobin 29.8 pg (28.0-33.3); Mean Corpuscular Volume 90.1 fL (83.0-100.0); Mean Platelet Volume 10.8 fL (9.4-12.4); Monocytes # 1.1 K/mcL (0.0-1.3); Monocytes % 6.5 %; Neutrophils # 10.9 K/mcL (1.6-8.9); Platelet Count 351 K/mcL (140-400); Red Blood Count 3.22 M/mcL (4.19-5.50); Red Cell Distribution Width 13.3 % (11.5-14.5); Segmented Neutrophils % 65.8 %
[2016-08-07 16:30] LABS: Hemoglobin 9.6 g/dL (12.9-16.9)
[2016-08-07 16:42] LABS: BUN/Creatinine Ratio 12 (6-26); Blood Urea Nitrogen 13 mg/dL (8-26); Carbon Dioxide 22 mEq/L (19-29); Chloride 108 mEq/L (98-109); Glucose 336 mg/dL (70-99); Osmolality,Calculated 297 (280-300); Potassium 3.6 mEq/L (3.5-4.5); Sodium 137 mEq/L (136-145); eGFR For African Americans > 60 (> 60); eGFR For Non-African Americans > 60 (> 60)
[2016-08-07] MEDS: *HR* Heparin 5,000 UNIT/ML VIAL SQ SCH (17:22)
--- NOTE | 2016-08-07 20:10 | ECHO - Doppler Report ---
Echocardiogram Name: Juan Carlos Slaughter Date of Study: 08/07/2016 Date: 1960 Ht: 70.0 in Medical Record#: [id number] Age: 56 Wt: 152.0 lb Gender: Male BSA: 1.86 Order #: [id number] Location: [facility] Room #: [id number] Reading Physician: Pankaj Dunbar MD, [facility] Jack Spinner: Gail Martino Ordering Physician: Linda Lim MD Primary Physician: Santiago Altamirano MD Indications: Hypotension, hypoxia, CHF Impressions: LVEF 65-70%. No pulmonary hypertension. No significant valvular dysfunction. Left Ventricular Wall Motion: Rest Echo Findings All wall segments showed normal motion. Findings: Study Quality * Technically adequate exam. Right Ventricle * Normal right ventricular structure and function. Left Atrium * Normal left atrial size. Right Atrium * Normal right atrial size. Aortic Valve * Trileaflet aortic valve with normal function. Mitral Valve * Normal mitral valve structure and function. Interatrial Septum * No evidence of PFO by color Doppler. Aorta * Normally sized aortic root. Pericardium * The pericardium appears normal. ECG Findings * Normal sinus rhythm. Left Ventricle * LVEF 65-70%. * Indeterminate diastolic function. Tricuspid Valve * No tricuspid stenosis. * Trace tricuspid regurgitation. * Estimated RVSP is 24 mmHg. * Estimated RA pressure is 3-5 mmHg. * No pulmonary hypertension. IVC * Normal IVC dimensions and inspiratory collapse. Pulmonic Valve * No pulmonic regurgitation. * No pulmonic stenosis. * Pulmonic valve is not well visualized. History Hypertension Diabetes Hypercholesteremia History of Smoking Years 50 Packs 0.5 Family History of CAD History of CAD/PTCA Myocardial Infarction Coronary Artery Bypass Graft Congestive Heart Failure 08/02/2015 a Previous Echo was performed. Measurements: BP: 93/ 63 2D Normal Values RVIDd: 3.20 cm <2.7 cm IVSd: .70 cm 0.6 - 1.0 cm LVIDd: 4.60 cm 3.7 - 5.6 cm LVPWd: 1.00 cm 0.6 - 1.1 cm LVIDs: 2.70 cm 1.5 - 3.6 cm AO: 3.00 cm < 4.0 cm LA: 3.70 cm 2.0 - 4.0cm %FS: 41.30 cm >25 % LA volume: 41 Mitral Valve Peak E:.99 m/sec Peak A:1.05 m/sec E/A Ratio:0.9 Peak E' Lat Maximiliano:12.3 cm/s Peak E' Med Maximiliano:9.65 cm/s E/E' Lat Ratio:8 E/E' Med Ratio:10.2 Tricuspid Valve TV Regurg Peak Grad: 24.00mmHg TV Regurg Peak Maximiliano: 2.46m/sec Updated by Pankaj Dunbar MD, [facility] on 08/07/2016 8:04:32 PM electronically signed on 08/07/2016 8:05:42 PM with status of Final Wall Motion Remy: 1=Normal, 2=Hypokinesis, 3=Akinesis, 4=Dyskinesis, 5=Aneurysmal, 6=Hyperkinetic, X=Not Visualized (Blank)=Missing
[2016-08-07] MEDS: Insulin DETEMIR 100 UNIT/ML X5UNITS SQ SCH (21:23)
[2016-08-07] MEDS: 0.9 % Sodium Chloride 1,000 ML IVC SCH (21:26)
[2016-08-08] MEDS: 0.9 % Sodium Chloride 1,000 ML IVC SCH ×3 (01:36→08:15)
[2016-08-08] MEDS: Piperacillin/Tazobactam 3.375 GM in D5% in Water (Mini-Bag+) 100 ML IVPB SCH ×2 (01:41→08:57)
[2016-08-08] MEDS: Ipratropium/Albuterol Neb 3 ML IH SCH ×2 (05:03→09:34)
[2016-08-08 06:22] LABS: Basophils % 0.3 %; Eosinophils # 0.1 K/mcL (0.0-0.6); Eosinophils % 0.4 %; Hematocrit 29.5 % (37.5-50.1); Hemoglobin 9.6 g/dL (12.9-16.9); Immature Granulocytes % 0.7 % (0-4); Lymphocytes % 28.6 %; Mean Corpuscular HGB Conc 32.5 g/dL (31.6-35.5); Mean Corpuscular Hemoglobin 29.3 pg (28.0-33.3); Mean Corpuscular Volume 89.9 fL (83.0-100.0); Monocytes % 7.4 %; Neutrophils # 8.7 K/mcL (1.6-8.9); Platelet Count 341 K/mcL (140-400); Red Blood Count 3.28 M/mcL (4.19-5.50); Red Cell Distribution Width 13.5 % (11.5-14.5); Segmented Neutrophils % 62.6 %
[2016-08-08 06:35] LABS: BUN/Creatinine Ratio 9 (6-26); Blood Urea Nitrogen 10 mg/dL (8-26); C-Reactive Protein 6 mg/L (Less than 5); Calcium 8.2 mg/dL (8.6-10.8); Carbon Dioxide 24 mEq/L (19-29); Chloride 108 mEq/L (98-109); Glucose 239 mg/dL (70-99); Osmolality,Calculated 295 (280-300); Sodium 139 mEq/L (136-145); eGFR For African Americans > 60 (> 60); eGFR For Non-African Americans > 60 (> 60)
[2016-08-08] MEDS: *HR* Heparin 5,000 UNIT/ML VIAL SQ SCH (07:11)
[2016-08-08] MEDS: Insulin LISPRO 300 UNITS/3 ML VIAL SQ SCH ×2 (08:43→12:24)
[2016-08-08] MEDS: *HR* OxyCODONE Immed Rel 5 MG TABLET PO PRN (08:55)
[2016-08-08] MEDS: Famotidine 20 MG TABLET PO SCH (08:56)
[2016-08-08] MEDS: Fenofibrate 54 MG TABLET PO SCH (08:56)
[2016-08-08] MEDS: Hydrocortisone Sodium Succ 100 MG/2 ML VIAL IVP SCH (08:57)
[2016-08-08] MEDS: Nicotine 21 MG PATCH.TD24 TD SCH (08:58)
[2016-08-08] MEDS: Insulin DETEMIR 100 UNIT/ML X5UNITS SQ SCH (11:02)
[2016-08-08] MEDS: Vancomycin 1,000 MG in D5% in Water 250 ML IVPB SCH (11:49)
[2016-08-08 12:14] VITALS: BP 108/65
[2016-08-08] MEDS ORDERED: Insulin DETEMIR 100 UNIT/ML X5UNITS SQ SCH (13:25)
[2016-08-08] MEDS ORDERED: 0.9 % Sodium Chloride 1,000 ML IVC SCH (13:30)
--- NOTE | 2016-08-08 13:38 | Discharge Summary ---
Date of Encounter: 08/08/16 Time of Encounter: 13:33 - Discharge Diagnosis (1) Hypotension Priority: Primary Status: Resolved Qualifiers: Hypotension type: hypotension due to drug Qualified Code(s): I95.2 - Hypotension due to drugs (2) Leukocytosis Priority: Primary Status: Resolved Qualifiers: Leukocytosis type: unspecified Qualified Code(s): D72.829 - Elevated white blood cell count, unspecified (3) Acute encephalopathy Priority: Primary Status: Resolved (4) Acute respiratory failure with hypoxia Priority: Primary Status: Resolved (5) Seizure disorder Priority: Secondary Status: Chronic (6) Renal insufficiency Priority: Primary Status: Resolved (7) CAD (coronary artery disease) Priority: Secondary Status: Chronic Qualifiers: Coronary Disease-Associated Artery/Lesion type: bypass graft [place] vs. transplanted heart: [place] heart Associated angina: without angina Qualified Code(s): I25.810 - Atherosclerosis of coronary artery bypass graft(s) without angina pectoris (8) DM2 (diabetes mellitus, type 2) Priority: Secondary Status: Chronic Qualifiers: Diabetes mellitus complication status: with hyperglycemia Diabetes mellitus joint terminal attack controller insulin use: with joint terminal attack controller use Qualified Code(s): E11.65 - Type 2 diabetes mellitus with hyperglycemia; Z79.4 - senior living (current) use of insulin (9) HLD (hyperlipidemia) Priority: Secondary Status: Chronic Qualifiers: Hyperlipidemia type: mixed hyperlipidemia Qualified Code(s): E78.2 - Mixed hyperlipidemia - Discharge Medications Prescriptions: Insulin DETEMIR [Levemir] 25 unit SQ BID 30 Days Home Medications: Clopidogrel [Plavix] 75 mg PO DAILY 02/04/15 [History] Fenofibrate [Tricor] 145 mg PO DAILY 02/04/15 [History] Phenytoin [Dilantin] 100 mg PO TID 02/04/15 [History] Aspirin 81 mg PO DAILY #0 tab.chew 02/05/15 [Rx] Insulin LISPRO [HumaLOG] 22 - 30 units SQ TIDAC 07/31/15 [History] Sertraline [Zoloft] 100 mg PO DAILY 07/31/15 [History] Metoprolol XL (24 HR) Succ [Toprol Xl] 12.5 mg PO DAILY #30 tab.er.24h 08/03/15 [Rx] Gabapentin 800 mg PO TID 08/06/16 [History] Nitroglycerin [Nitrostat] 0.4 mg SL Q5M PRN 08/06/16 [History] Simvastatin [Zocor] 40 mg PO HS 08/06/16 [History] Insulin DETEMIR [Levemir] 25 unit SQ BID 30 Days 08/08/16 [Rx] Allergies/Adverse Reactions: Allergies No Known Allergies Allergy (Verified 07/31/15 14:33) Date of admission: 08/07/16 17:25 Primary care physician: Santiago Altamirano MD Discharging clinician: Susanne Lim Anticipated date of discharge: 08/08/16 - Patient Status Disposition: Home Health Service Condition: Good Functional capacity at discharge: wheelchair bound Overall status at discharge: patient is back to baseline - Discharge Instructions Instructions: Insulin Detemir (Injection), Diabetes Mellitus Type 2 in Adults ( DC), Hypotension (DC) Follow Up With: Santiago Altamirano MD [Primary Care Provider] - (Please call tomorrow and make appt for 1 week after discharge.) Additional Instructions: As tolerated. Use same forms of transfering as you did prior to admission for your left leg amputation. - Diet and Activity Activity: as per physical therapy Diet: diabetic diet, low fat, low cholesterol, low salt diet Hospital course: Mr. Slaughter is a 56 year old male with the above medical problems, admitted with confusion and lethargy. He was noted to have hypoxic respiratory failure and hypotension at triage. He was given supplemental oxygen, received a central venous catheter and IV fluid hydration. He was noted to have mild leukocytosis and was started on broad-spectrum IV antibiotics for possible occult infection/ septic shock. He also received IV steroids and albumin. He remained asymptomatic at the time of my evaluation and his blood pressure continued to improve since admission. His labs are within normal limits today with improvement in leukocytosis. ESR and CRP are normal, not suggestive of infection. Patient is no longer requiring supplemental oxygen. Blood cultures remain negative. Echocardiogram was done which showed preserved ejection fraction with no significant valvular abnormalities or wall motion abnormalities. Patient was noted to have uncontrolled diabetes with hyperglycemia and he reported that he is noncompliant with insulin, Accu-Chek blood glucose monitoring and diabetic diet at home. He lives alone but does have home health services including visiting nurse. He is encouraged to continue to check his blood sugars regularly and to comply with insulin and he is being discharged with an increased dose of Levemir. He was encouraged to stay another night to monitor his blood pressure and adjust his medications, however he declined and wanted to be discharged today as he was expecting some visitors at home and wanted to take care of his pet animals. He is otherwise medically stable for discharge, his Imdur and lisinopril are being held at this time and only low-dose metoprolol is being resumed. - Time Spent with Patient Total time spent providing and/or coordinating discharge services: Greater than 30 minutes (45 min) - Constitutional Vitals: Temp Pulse Resp BP Pulse Ox 98.0 F 83 15 108/65 97 08/08/16 12:11 08/08/16 12:11 08/08/16 12:11 08/08/16 12:11 08/08/16 12:11 General appearance: Present: A&O X 3, answers questions appropriately - Respiratory Respiratory exam: Present: CTAB. Absent: accessory muscle use, rales, rhonchi, wheezes - Cardiovascular Cardiovascular exam: Present: RRR, +S1, +S2. Absent: diastolic murmur, gallop, rubs, systolic murmur
--- NOTE | 2016-08-08 13:40 | Physician Discharge Referral ---
Home Health/Hosp Referral Info Transfer to: Home Health Attending Provider: Susanne Lim Provider in Charge Post Discharge: PCP - Diagnosis (1) Hypotension Priority: Primary Status: Resolved (2) Leukocytosis Priority: Primary Status: Resolved (3) Acute encephalopathy Priority: Primary Status: Resolved (4) Acute respiratory failure with hypoxia Priority: Primary Status: Resolved (5) Seizure disorder Priority: Secondary Status: Chronic (6) Renal insufficiency Priority: Primary Status: Resolved (7) CAD (coronary artery disease) Priority: Secondary Status: Chronic (8) DM2 (diabetes mellitus, type 2) Priority: Secondary Status: Chronic (9) HLD (hyperlipidemia) Priority: Secondary Status: Chronic - Respiratory Orders Smoking Cessation: Smoking cessation has been advised. For more information, call the [employer] Quit Line at 5-464-JRJT-NOW. - Diet/Nutrition Diet/Nutrition Orders: Cardiac, No Concentrated Sweets (diabetic) - Activity Activity Orders: Up ad óscar - Services Needed Following services are medically necessary services: Nursing (Blood glucose control, encourage compliance to meds and diet), Home Health Aide, Physical Therapy, Occupational Therapy - Transfer Medications Prescriptions: Insulin DETEMIR [Levemir] 25 unit SQ BID 30 Days Home Medications: Clopidogrel [Plavix] 75 mg PO DAILY 02/04/15 [History] Fenofibrate [Tricor] 145 mg PO DAILY 02/04/15 [History] Phenytoin [Dilantin] 100 mg PO TID 02/04/15 [History] Aspirin 81 mg PO DAILY #0 tab.chew 02/05/15 [Rx] Insulin LISPRO [HumaLOG] 22 - 30 units SQ TIDAC 07/31/15 [History] Sertraline [Zoloft] 100 mg PO DAILY 07/31/15 [History] Metoprolol XL (24 HR) Succ [Toprol Xl] 12.5 mg PO DAILY #30 tab.er.24h 08/03/15 [Rx] Gabapentin 800 mg PO TID 08/06/16 [History] Nitroglycerin [Nitrostat] 0.4 mg SL Q5M PRN 08/06/16 [History] Simvastatin [Zocor] 40 mg PO HS 08/06/16 [History] Insulin DETEMIR [Levemir] 25 unit SQ BID 30 Days 08/08/16 [Rx] Allergies/Adverse Reactions: Allergies No Known Allergies Allergy (Verified 07/31/15 14:33) Certification: Further, I certify that my clinical findings support that this patient is homebound (i.e. absences from home require considerable and taxing effort and are for medical reasons or mandaeism services or infrequently or short duration when for other reasons) because: Homebound Reason: Patient requires assistance of a person or device to safely leave home, Leaving home requires considerable and taxing effort due to condition Attestation: My signature below is to certify that this patient is under my care and that I, or nurse practitioner, or a physician's chemistry research assistant working with me, has a face-to -face encounter with this patient.
[2016-08-08] MEDS ORDERED: Aminoglycoside Consult 1 EACH MC ONE (16:09)
--- NOTE | 2016-08-09 07:03 | Electrocardiograph Report ---
[place] [id number] Test Date: 2016-08-06 Pat Name: Juan Carlos Slaughter Department: 103 Room: [facility] Gender: M Transportation Dispatch Manager: : 1960 Requested By: Earl Mina Order Number: [id number] Reading MD: Pankaj Dunbar MD Measurements Intervals [place] Rate: 86 P: 69 RI: 129 QRS: -8 QRSD: 107 T: 93 QT: 387 QTc: 431 Interpretive Statements SINUS RHYTHM Electronically Signed On 08-09-2016 7:01:29 EST by Pankaj Dunbar MD
[2016-08-09 17:19] LABS: Amphetamines NEGATIVE ng/mL (Cutoff 30); Barbiturates NEGATIVE ng/mL (Cutoff 75); Benzodiazepines NEGATIVE ng/mL (Cutoff 75); Cocaine NEGATIVE ng/mL (Cutoff 30); Methadone NEGATIVE ng/mL (Cutoff 40); Methamphetamines NEGATIVE ng/mL (Cutoff 30); Opiates NEGATIVE ng/mL (Cutoff 30); Phencyclidine NEGATIVE ng/mL (Cutoff 15)
== END 2016-08-08 16:10 | disposition home health service (06) | DRG 312 ==
LOC: 2NENU 16:07 → EMEROO 16:07 → 2NENU 20:09
PROVIDERS: ADMIT Family Medicine; ATTEND Internal Medicine

== ENCOUNTER 2017-02-17 09:03 | Observation (INO) ==
[2017-02-17] MEDS ORDERED: 0.9 % Sodium Chloride 1,000 ML IVC ONE ×2 (09:15→11:49)
[2017-02-17] MEDS ORDERED: *HR* HYDROmorphone (PF) 1 MG/ML SYRINGE IVP ONE ×3 (09:15→13:20)
[2017-02-17] MEDS ORDERED: Ondansetron 4 MG/2 ML VIAL IVP ONE (09:15)
[2017-02-17 09:46] LABS: Basophils # 0.1 K/mcL (0.0-0.2); Basophils % 0.5 %; Eosinophils # 0.4 K/mcL (0.0-0.6); Eosinophils % 2.2 %; Hematocrit 46.7 % (37.5-50.1); Lymphocytes % 16.9 %; Mean Corpuscular HGB Conc 32.1 g/dL (31.6-35.5); Mean Corpuscular Hemoglobin 28.2 pg (28.0-33.3); Mean Corpuscular Volume 87.9 fL (83.0-100.0); Mean Platelet Volume 10.9 fL (9.4-12.4); Monocytes # 1.5 K/mcL (0.0-1.3); Monocytes % 8.2 %; Neutrophils # 12.7 K/mcL (1.6-8.9); Platelet Count 331 K/mcL (140-400); Red Blood Count 5.31 M/mcL (4.19-5.50); Red Cell Distribution Width 13.4 % (11.5-14.5); Segmented Neutrophils % 71.2 %
[2017-02-17 09:49] LABS: Alanine Aminotransferase 18 Units/L (0-55); Albumin 3.7 g/dL (3.5-5.0); Albumin/Globulin Ratio 0.9 (1.1-2.2); Alkaline Phosphatase 73 Units/L (38-126); Aspartate Amino Transferase 18 Units/L (5-34); BUN/Creatinine Ratio 17 (6-26); Bilirubin,Direct 0.2 mg/dL (0.0-0.5); Bilirubin,Indirect 0.4 mg/dL (0.0-1.2); Bilirubin,Total 0.6 mg/dL (0.2-1.2); Blood Urea Nitrogen 20 mg/dL (8-26); Carbon Dioxide 18 mEq/L (19-29); Chloride 97 mEq/L (98-109); Globulin 4.1 g/dL (2.4-3.5); Glucose 344 mg/dL (70-99); Lipase 35 Units/L (8-78); Osmolality,Calculated 296 (280-300); Sodium 135 mEq/L (136-145); Total Protein 7.8 g/dL (6.0-8.3); eGFR For African Americans > 60 (> 60); eGFR For Non-African Americans > 60 (> 60)
[2017-02-17 09:53] LABS: Bilirubin,Urine Moderate (Negative); Blood,Urine Negative (Negative); Clarity,Urine Clear (Clear); Color,Urine Yellow (Yellow); Glucose,Urine (UA) >=1000 mg/dL (Normal); Ketones,Urine 40 mg/dL (Negative); Leukocyte Esterase,Urine Negative (Negative); Nitrite,Urine Negative (Negative); Protein,Urine Negative (Neg-Trace); Specific Gravity,Urine > 1.030 (1.010-1.025); Urobilinogen,Urine Normal (Normal)
[2017-02-17 09:53] LABS: Potassium 5.1 mEq/L (3.5-4.5)
--- NOTE | 2017-02-17 11:14 | Emergency Department Note ---
Disposition Clinical Impression: Abnormal CT scan, pelvis Abdominal pain Qualifiers: Abdominal location: epigastric Qualified Code(s): R10.13 - Epigastric pain Disposition: Still a Patient Condition: Fair Referrals: Suleman Fonseca MD [Primary Care Provider] - Forms: Work/School Release, ED Satisfaction Letter Abdominal Pain HPI - General Chief Complaint: ED Abdominal Pain Stated Complaint: abdominal pain Time Seen by Provider: 02/17/17 09:06 Source: patient, EMS Mode of arrival: private vehicle Limitations: no limitations Nursing Notes Reviewed: Yes Vital Signs Reviewed: Yes - History of Present Illness Pt Subjective Complaint: abdominal pain Onset (ago): day(s) Consistency: constant, Worsening Location: epigastric Pain Severity: severe Pain Scale: 9 Quality: stabbing, sharp Radiation: none Migration to: no migration Improves with: nothing Worsens with: nothing Context: history of similar episodes (Pancreatitis - was recently admitted for same. Had MRI of abdomen which showed a small, non-obstructing stone in the CBD. Patient was seen by Dr. Harris. Symptoms resolved and he went home. Pt also states that PCP stopped Rx Trulicity as it may have been contributing to symptoms. ) Treatments prior to arrival: prescription analgesics - Related Data Home Medications Medication Instructions Recorded Confirmed Clopidogrel [Plavix] 75 mg PO DAILY 02/04/15 02/09/17 Sertraline [Zoloft] 100 mg PO DAILY 07/31/15 02/09/17 Gabapentin 800 mg PO TID 08/06/16 02/09/17 Nitroglycerin [Nitrostat] 0.4 mg SL Q5M PRN 08/06/16 02/09/17 Simvastatin [Zocor] 40 mg PO HS 08/06/16 02/09/17 Amitriptyline [Elavil] 75 mg PO HS 02/09/17 02/09/17 Aspirin Enteric Coated [Aspirin EC] 81 mg PO DAILY 02/09/17 02/09/17 Dulaglutide [Trulicity] 0.75 mg SQ QWEEK 02/09/17 02/09/17 Fenofibrate Nanocrystallized 145 mg PO DAILY 02/09/17 02/09/17 [Tricor] Insulin ASPART [NovoLOG] 0 unit SQ TIDWM 02/09/17 02/09/17 Insulin Glargine,Hum.rec.anlog 60 units SQ DAILY 02/09/17 02/09/17 [Artelizabeth Janettesuhail] Lipase/Protease/Amylase [Baldo Lay 1 each PO AD 02/09/17 02/09/17 12,000 Units Capsule] Lipase/Protease/Amylase [Baldo Lay 1 each PO TIDWM 02/09/17 02/09/17 24,000 Units Capsule] Lisinopril 2.5 mg PO DAILY 02/09/17 02/09/17 Metoprolol [Lopressor] 12.5 mg PO BID 02/09/17 02/09/17 Omeprazole [PriLOSEC] 40 mg PO DAILY 02/09/17 02/09/17 Phenytoin ER [Dilantin ER] 100 mg PO TID 02/09/17 02/09/17 Tizanidine HCl 4 mg PO TID PRN 02/09/17 02/09/17 Allergies Allergy/AdvReac Type Severity Reaction Status Date / Time No Known Allergies Allergy Verified 02/17/17 09:08 All systems ED: reviewed and negative except as stated. Review of Systems: As Per HPI Constitutional: Reports: chills. Denies: fever, weakness, weight change, night sweats Cardiovascular: Denies: chest pain, palpitations, dyspnea on exertion, orthopnea , syncope Respiratory: Denies: cough, dyspnea, wheezes Gastrointestinal: Reports: as per HPI, abdominal pain, nausea, vomiting. Denies : diarrhea, constipation, hematemesis, melena, hematochezia Genitourinary: Reports: as per HPI, frequency. Denies: urgency, dysuria, hematuria, discharge Musculoskeletal: Denies: back pain, neck pain, joint swelling, arthralgia Integumentary: Denies: rash, pruritus Neurological: Denies: headache, weakness, confusion, vertigo Hematological/Lymphatic: Denies: easy bleeding, easy bruising, lymphadenopathy Abdominal Pain PMH - Past Medical History Medical history: Reports: CHF, coronary artery disease, CVA, diabetes, hyperlipidemia, hypertension, myocardial infarction, seizures, other Male Surgical History: Reports: coronary bypass (CABG), other Psychiatric history: Reports: anxiety, depression, other - Social History Smoking status: Current every day smoker Alcohol use: Reports: none Drug use: Reports: none Physical Exam - General Limitations: no limitations General appearance: alert, in distress (appears to be in pain and nauseated) - Head Head exam: atraumatic, normocephalic, normal inspection - Eye Eye exam: Present: normal appearance, PERRL. Absent: scleral icterus, conjunctival injection, periorbital swelling - ENT ENT exam: mucous membranes dry - Neck Neck exam: Present: normal inspection, full ROM, trachea midline. Absent: meningismus - Chest Chest inspection: Present: normal inspection - Respiratory Respiratory exam: Present: normal lung sounds bilaterally. Absent: respiratory distress - Cardiovascular Cardiovascular exam: Present: normal rhythm, tachycardia, normal heart sounds - Abdominal Exam Abdominal exam: Present: soft, tenderness, diminished bowel sounds. Absent: distention, guarding, rebound, rigidity, mass, pulsatile mass Abdominal tenderness: Present: epigastrium, moderate - Extremities Exam Extremities exam: Present: normal capillary refill - Neurological Exam Neurological exam: Present: alert, oriented X3, CN II-XII intact - Psychiatric Psychiatric exam: Present: normal affect, normal mood - Skin Skin exam: Present: warm, dry, intact, normal color Course Course Narrative: Patient with history of pancreatitis presents from home for evaluation of epigastric abdominal pain. It has been present for several days and getting worse. He was recently admitted for same. Had MRI of abdomen which showed a small, non-obstructing stone in the CBD. Patient was seen by Dr. Harris. Symptoms resolved and he went home. Pt also states that PCP stopped Rx Trulicity as it may have been contributing to his symptoms. Labs, pain meds, antibiotics, fluids and a CT have been ordered. Patient has leukocytosis, and hyperglycemia with positive serum ketones of 2. Urinalysis is pending. CT is pending. Case has been discussed with Dr. Fonseca. He will be taking over care of this patient. Vital Signs Temperature 99.4 F 02/17/17 09:53 Pulse Rate 120 02/17/17 09:53 Respiratory Rate 18 02/17/17 09:53 Blood Pressure 161/102 02/17/17 09:53 O2 Sat by Pulse Oximetry 95 02/17/17 09:53 Temperature 99.4 F 02/17/17 09:53 Pulse Rate 120 02/17/17 09:53 Respiratory Rate 20 02/17/17 09:53 Blood Pressure 161/102 02/17/17 09:53 O2 Sat by Pulse Oximetry 95 02/17/17 09:53 Oxygen Delivery Oxygen Delivery Room Air Abdominal Pain - Lab Data Result diagrams: 02/17/17 09:30 02/17/17 09:30 Lab Results 02/17/17 02/17/17 02/17/17 Range/Units 09:30 09:30 09:30 WBC 17.7 H (4.3-11.1) K/mcL RBC 5.31 (4.19-5.50) M/mcL Hgb 15.0 (12.9-16.9) g/dL Hct 46.7 (37.5-50.1) % MCV 87.9 (83.0-100.0) fL MCH 28.2 (28.0-33.3) pg MCHC 32.1 (31.6-35.5) g/dL RDW 13.4 (11.5-14.5) % Plt Count 331 (140-400) K/mcL MPV 10.9 (9.4-12.4) fL Immature Gran % 1.0 (0-4) % Seg Neutrophils % 71.2 % Lymphocytes % 16.9 % Monocytes % 8.2 % Eosinophils % 2.2 % Basophils % 0.5 % Neutrophils # 12.7 H (1.6-8.9) K/mcL Lymphocytes # 3.0 (0.6-4.6) K/mcL Monocytes # 1.5 H (0.0-1.3) K/mcL Eosinophils # 0.4 (0.0-0.6) K/mcL Basophils # 0.1 (0.0-0.2) K/mcL Sodium 135 L (136-145) mEq/L Potassium 5.1 H D (3.5-4.5) mEq/L Chloride 97 L (98-109) mEq/L Carbon Dioxide 18 L (19-29) mEq/L BUN 20 (8-26) mg/dL Creatinine 1.20 (0.72-1.25) mg/dL Est GFR ( Amer) > 60 (> 60) Est GFR (Non-Af Amer) > 60 (> 60) BUN/Creatinine Ratio 17 (6-26) Glucose 344 H (70-99) mg/dL Calculated Osmolality 296 (280-300) Lactic Acid 1.4 (0.5-2.2) mmol/L Calcium 10.0 (8.6-10.8) mg/dL Total Bilirubin 0.6 (0.2-1.2) mg/dL Direct Bilirubin 0.2 (0.0-0.5) mg/dL Indirect Bilirubin 0.4 (0.0-1.2) mg/dL AST 18 (5-34) Units/L ALT 18 (0-55) Units/L Alkaline Phosphatase 73 (38-126) Units/L Serum Total Protein 7.8 (6.0-8.3) g/dL Albumin 3.7 (3.5-5.0) g/dL Globulin 4.1 H (2.4-3.5) g/dL Albumin/Globulin Ratio 0.9 L (1.1-2.2) Lipase 35 (8-78) Units/L Urine Color (Yellow) Urine Clarity (Clear) Urine pH (5.0-8.0) pH Units Ur Specific [place] (1.010-1.025) Urine Protein (Neg-Trace) mg/dL Urine Glucose (UA) (Normal) mg/dL Urine Ketones (Negative) mg/dL Urine Blood (Negative) Urine Nitrite (Negative) Urine Bilirubin (Negative) Urine Urobilinogen (Normal) mg/dL Ur Leukocyte Esterase (Negative) Ur Culture Indicated? (NO) 02/17/17 Range/Units 09:48 WBC (4.3-11.1) K/mcL RBC (4.19-5.50) M/mcL Hgb (12.9-16.9) g/dL Hct (37.5-50.1) % MCV (83.0-100.0) fL MCH (28.0-33.3) pg MCHC (31.6-35.5) g/dL RDW (11.5-14.5) % Plt Count (140-400) K/mcL MPV (9.4-12.4) fL Immature Gran % (0-4) % Seg Neutrophils % % Lymphocytes % % Monocytes % % Eosinophils % % Basophils % % Neutrophils # (1.6-8.9) K/mcL Lymphocytes # (0.6-4.6) K/mcL Monocytes # (0.0-1.3) K/mcL Eosinophils # (0.0-0.6) K/mcL Basophils # (0.0-0.2) K/mcL Sodium (136-145) mEq/L Potassium (3.5-4.5) mEq/L Chloride (98-109) mEq/L Carbon Dioxide (19-29) mEq/L BUN (8-26) mg/dL Creatinine (0.72-1.25) mg/dL Est GFR ( Amer) (> 60) Est GFR (Non-Af Amer) (> 60) BUN/Creatinine Ratio (6-26) Glucose (70-99) mg/dL Calculated Osmolality (280-300) Lactic Acid (0.5-2.2) mmol/L Calcium (8.6-10.8) mg/dL Total Bilirubin (0.2-1.2) mg/dL Direct Bilirubin (0.0-0.5) mg/dL Indirect Bilirubin (0.0-1.2) mg/dL AST (5-34) Units/L ALT (0-55) Units/L Alkaline Phosphatase (38-126) Units/L Serum Total Protein (6.0-8.3) g/dL Albumin (3.5-5.0) g/dL Globulin (2.4-3.5) g/dL Albumin/Globulin Ratio (1.1-2.2) Lipase (8-78) Units/L Urine Color Yellow (Yellow) Urine Clarity Clear (Clear) Urine pH 6.0 (5.0-8.0) pH Units Ur Specific [place] > 1.030 H (1.010-1.025) Urine Protein Negative (Neg-Trace) mg/dL Urine Glucose (UA) >=1000 H (Normal) mg/dL Urine Ketones 40 H (Negative) mg/dL Urine Blood Negative (Negative) Urine Nitrite Negative (Negative) Urine Bilirubin Moderate H (Negative) Urine Urobilinogen Normal (Normal) mg/dL Ur Leukocyte Esterase Negative (Negative) Ur Culture Indicated? NO (NO)
--- NOTE | 2017-02-17 12:19 | Emergency Department Note ---
START Narrative - START START: I examined this patient and my medical decision-making was reviewed with the Resident Physician. I agree with the documented findings, disposition and treatment plan as described except to the extent set forth below. 56-year-old male presented to the ER with vomiting and abdominal pain. Patient was just recently discharged from the hospital for the same symptoms. He was found to have choledocholithiasis during his stay as well as some underlying pancreatitis. Patient had an MRCP done by GI. There was a stone noted in the common bile duct but it was not obstructing. I spoke with GI again today and they would prefer the patient to be readmitted with a can go and retrieve the stone. He states he has been unable to tolerate anything by mouth today secondary to the vomiting. He denies fevers. Repeated lab work does not show any significant findings other than a elevated white count of 17,000. This is been persistently elevated recently. CT abdomen and pelvis did not show any acute findings as compared to previous. Again I did speak with GI and consult with him directly. We will admit the patient to the hospitalist. He will try to arrange for an MRCP today.
[2017-02-17] MEDS ORDERED: Insulin Regular, Human 100 UNIT/ML SQ ONE (12:24)
[2017-02-17] MEDS ORDERED: *HR* FentaNYL (PF) 100 MCG/2 ML VIAL ONE (14:08)
[2017-02-17] MEDS ORDERED: *HR* Midazolam HCl 5 MG/5 ML VIAL IVP ONE (14:08)
[2017-02-17] MEDS: *HR* Midazolam HCl 5 MG/5 ML VIAL IVP PRN ×2 (14:40→14:42)
[2017-02-17] MEDS: *HR* FentaNYL (PF) 100 MCG/2 ML VIAL IVP PRN ×2 (14:40→14:42)
[2017-02-17] MEDS ORDERED: Simethicone 40 MG/0.6 ML MLS IR ONE (14:41)
[2017-02-17] MEDS ORDERED: Tetracaine/Benzocaine/Butamben 200MG/SPRAY (100SPY/BOT) MM ONE (14:41)
--- NOTE | 2017-02-17 15:49 | Gastroenterology Consult Note ---
<Desean Spring - Last Filed: 02/17/17 17:30> Date of Encounter: 02/17/17 Time of Encounter: 15:44 - Assessment and plan (1) Abdominal pain Current Visit: Yes Status: Acute Assessment and plan: recently discharged on 02/11/17 after being treated for acute on chronic pancreatitis. MRCP at that time showed hepatic steatosis, pseudocyst, cholelithiasis, nonobstructing stone in common bile duct. CT abdomen/pelvis from today showed no evidence of acute pancreatitis, hypodense lesion in pancreatic head. Plan: EGD later today. Further recs pending EGD. Qualifiers: Abdominal location: epigastric Qualified Code(s): R10.13 - Epigastric pain - Time Spent With Patient Total time spent is greater than 50% in coordination of care (as documented) at patient's floor/unit and/or counseling patient: GI History of Present Illness - Data of Consult Patient: known to practice within the last 3 years Consult date: 02/17/17 Requesting Physician: Zulema Hanna CNP - Consult Narrative Reason for consult: may need ERCP History of present illness: Mr. Slaughter is a 56 year old male with PMHx of chronic pancreatitis, DMII, CHF, CAD, hx of CVA, HTN, AL, seizures who presented to the ER today with CC of abdominal. pain. He was recently in the hospital and treated for acute on chronic pancreatitis and discharged on 02/11/17. Patient states that he continued to have abdominal pain after discharge. At that time, he had MRCP done which showed non obstructive CBD stone without ductal dilation. He was seen by GI at that time, and recommendation was to continue with conservative management. Patient returns today with continued abdominal pain that he states is worse than his last hospital admission. He states the pain as about 9/10. He states he has not been drinking and denies history of alcohol abuse. He also denies IV drug use. He still has an appetite and eats mostly soup. He states that his pain is sharp and constant and mostly located in left upper quadrant/epigastric area. He denies hematemesis, blood in stool, dark/tarry stools. He denies chest pain, shortness of breath, fevers. he admits to occasional chills. 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 Past Med Surg Social Fam HX - Past Medical History Medical history: CHF, coronary artery disease, CVA, diabetes, hyperlipidemia, hypertension, myocardial infarction, seizures, other Psychiatric history: anxiety, depression - Past Surgical History Surgical History: coronary bypass (CABG) - Social History Smoking Status: Current some day smoker Smokeless Tobacco Status: No Alcohol use: none Drug use: none - Family History Father Adopted: No Living Status: Still Living Hx Family Cardiac Disorders: Yes (CABG) Hx Family Endocrine Disorder: Yes All systems PM: reviewed and no additional remarkable complaints except as stated - Constitutional Vitals: Temp Pulse Resp BP Pulse Ox 98.3 F 102 14 136/88 98 02/17/17 13:48 02/17/17 14:50 02/17/17 14:50 02/17/17 14:50 02/17/17 14:50 General appearance: Present: A&O X 3, no acute distress - Head Head exam: Present: atraumatic, normocephalic - Respiratory Respiratory exam: Present: CTAB - Cardiovascular Cardiovascular exam: Present: RRR, +S1, +S2 - GI/Abdominal GI/Abdominal exam: Present: distended, firm, tenderness (diffuse tenderness, worse in left upper quadrant and epigastric area. ), no peritoneal signs - Extremities Exam Extremities exam: Absent: cyanotic, pedal edema Additional comments: left Below knee amputation. - Psychiatric Psychiatric exam: Present: normal affect, normal mood Results - Labs CBC & Chem 7: 02/17/17 09:30 02/17/17 09:30 Labs: Last Result Calcium 10.0 mg/dL (8.6-10.8) 02/17/17 09:30 Entire Visit Hgb 15.0 g/dL (12.9-16.9) 02/17/17 09:30 Hct 46.7 % (37.5-50.1) 02/17/17 09:30 Total Bilirubin 0.6 mg/dL (0.2-1.2) 02/17/17 09:30 AST 18 Units/L (5-34) 02/17/17 09:30 ALT 18 Units/L (0-55) 02/17/17 09:30 Lipase 35 Units/L (8-78) 02/17/17 09:30 Consult Discharge Plan - Plan Referrals: Suleman Fonseca MD [Primary Care Provider] - <Gul,Silvana - Last Filed: 02/17/17 18:24> Date of Encounter: 02/17/17 - Time Spent With Patient Total time spent is greater than 50% in coordination of care (as documented) at patient's floor/unit and/or counseling patient: GI History of Present Illness - Data of Consult Requesting Physician: Zulema Hanna CNP - Consult Narrative History of present illness: Mr. Slaughter is a 56 year old male - Constitutional Vitals: Temp Pulse Resp BP Pulse Ox 98.3 F 102 14 136/88 98 02/17/17 13:48 02/17/17 14:50 02/17/17 14:50 02/17/17 14:50 02/17/17 14:50 Results - Labs CBC & Chem 7: 02/17/17 09:30 02/17/17 09:30 Labs: Last Result Calcium 10.0 mg/dL (8.6-10.8) 02/17/17 09:30 Troponin I 0.01 ng/mL (0-0.03) 02/17/17 16:40 Entire Visit Hgb 15.0 g/dL (12.9-16.9) 02/17/17 09:30 Hct 46.7 % (37.5-50.1) 02/17/17 09:30 Total Bilirubin 0.6 mg/dL (0.2-1.2) 02/17/17 09:30 AST 18 Units/L (5-34) 02/17/17 09:30 ALT 18 Units/L (0-55) 02/17/17 09:30 Lipase 35 Units/L (8-78) 02/17/17 09:30 - Impressions Impressions Abdomen Ultrasound 02/17/17 17:00 IMPRESSION: Cholelithiasis. D/ / Tye Solis MD / Tye Solis MD Interpreting Provider: Tye Solis MD - Attending Attestation I examined this patient and my medical decision-making was reviewed with the Resident Physician. I agree with the documented findings, disposition and treatment plan as described except to the extent set forth below. Patient with upper abdominal pain very nonspecific. LFTs abnormal CT scan review no evidence of pancreatitis pancreatic enzymes are normal. CBD is not dilated. Recommendation EGD to rule out gastric causes for abdominal pain
[2017-02-17] MEDS ORDERED: Acetaminophen 325 MG TABLET PO PRN (16:12)
[2017-02-17] MEDS ORDERED: Naloxone 0.4 MG/ML INJ IVP PRN (16:12)
[2017-02-17] MEDS ORDERED: Ondansetron 4 MG/2 ML VIAL IVP PRN (16:17)
[2017-02-17] MEDS ORDERED: *HR* Dextrose 50 % in Water (Syg) 50 ML SYRINGE IVP PRN (16:21)
[2017-02-17] MEDS ORDERED: Dextrose Gel 15 GM PO PRN ×2 (16:21)
[2017-02-17] MEDS ORDERED: D5% in Water 1,000 ML IVC PRN (16:21)
--- NOTE | 2017-02-17 16:34 | Internal Med History&Physical ---
Date of Encounter: 02/17/17 Time of Encounter: 15:30 Assessment and Plan (1) DM2 (diabetes mellitus, type 2) Current visit: No Status: Chronic Continue basal and sliding sugar insulin. Qualifiers: Diabetes mellitus complication status: with hyperglycemia Diabetes mellitus roasterman insulin use: with halfway use Qualified Code(s): E11.65 - Type 2 diabetes mellitus with hyperglycemia; Z79.4 - buttermaker (current) use of insulin (2) CAD (coronary artery disease) Current visit: No Status: Chronic Patient complaint abdominal pain. However patient has history of CAD S/P stent , will obtain EKG and his 3 sets of troponin to rule out ACS, although it is less likely based on clinical picture. Place patient on continuous cardiac monitoring at this point. Qualifiers: Coronary Disease-Associated Artery/Lesion type: bypass graft [place] vs. transplanted heart: [place] heart Associated angina: without angina Qualified Code(s): I25.810 - Atherosclerosis of coronary artery bypass graft(s) without angina pectoris (3) PVD (peripheral vascular disease) Current visit: No Status: Chronic S/P stenting and left BKA (4) Seizure Current visit: No Status: Chronic History of seizure. Continue Dilantin, Switch to IV because of nothing by mouth (5) Abdominal pain Current visit: No Status: Acute Etiology is undetermined. Abdominal CT shows no acute change. Patient has chronic pancreatitis. EGD has been done, shows esophagitis. Patient also has gallstones. - Place patient on nothing by mouth. IV fluid. Pain management. - GI consul on case. - Bilirubin and lipase is within normal limits. - WBC is high, empirically place patient on Cipro and Flagyl. - US ABDOMINAL to further rule out cholecystitis. - Continue closely monitor patient. Qualifiers: Abdominal location: periumbilical Qualified Code(s): R10.33 - Periumbilical pain (6) Choledocholithiasis Current visit: No Status: Acute No bile duct dilation. Bilirubin is within normal limits. Less likely acute CBD obstruction. Patient may need surgery intervention after stabilized from acute abdominal pain Internal Medicine - H&P: HPI Chief complaint: Abdominal pain Admitted From: Home Plans for Post Hospital Care: Home History of present illness: Mr. Slaughter is a 56 year old male with history of diabetes, history of CVA with seizure disorder, CAD S/P stent, PAD S/P stenting and left BKA, history of pancreatitis present to ER for abdominal pain. Patient said he has abdominal pain since February 04, worsening since last night, with nausea but no vomiting. Patient has no shortness of breath. The pain is located on upper abdominal and lower chest area. Patient has a chills but are not sure if he has fever. The pain is constant, not related to eating. Abdominal CT in emergency room did not show any acute change. Patient do have chronic stable pancreas mass and cholelithiasis. Patient was admitted for further management. Patient is full code. Past Med Surg Social Fam HX - Past Medical History Medical history: CHF, coronary artery disease, CVA, diabetes, hyperlipidemia, hypertension, myocardial infarction, seizures, other Psychiatric history: anxiety, depression - Past Surgical History Surgical History: coronary bypass (CABG) - Social History Smoking Status: Current some day smoker Smokeless Tobacco Status: No Alcohol use: none Drug use: none - Family History Father Adopted: No Living Status: Still Living Hx Family Cardiac Disorders: Yes (CABG) Hx Family Endocrine Disorder: Yes Internal Medicine - H&P: Meds Clopidogrel [Plavix] 75 mg PO DAILY 02/04/15 [History] Sertraline [Zoloft] 100 mg PO DAILY 07/31/15 [History] Gabapentin 800 mg PO TID 08/06/16 [History] Nitroglycerin [Nitrostat] 0.4 mg SL Q5M PRN 08/06/16 [History] Simvastatin [Zocor] 40 mg PO HS 08/06/16 [History] Amitriptyline [Elavil] 75 mg PO HS 02/09/17 [History] Aspirin Enteric Coated [Aspirin EC] 81 mg PO DAILY 02/09/17 [History] Dulaglutide [Trulicity] 0.75 mg SQ QWEEK 02/09/17 [History] Fenofibrate Nanocrystallized [Tricor] 145 mg PO DAILY 02/09/17 [History] Insulin ASPART [NovoLOG] 0 unit SQ TIDWM 02/09/17 [History] Insulin Glargine,Hum.rec.anlog [[place]jeo Solostar] 60 units SQ DAILY 02/09/17 [ History] Lipase/Protease/Amylase [Baldo Lay 12,000 Units Capsule] 1 each PO AD 02/09/17 [ History] Lipase/Protease/Amylase [Baldo Lay 24,000 Units Capsule] 1 each PO TIDWM [History] Lisinopril 2.5 mg PO DAILY 02/09/17 [History] Metoprolol [Lopressor] 12.5 mg PO BID 02/09/17 [History] Omeprazole [PriLOSEC] 40 mg PO DAILY 02/09/17 [History] Phenytoin ER [Dilantin ER] 100 mg PO TID 02/09/17 [History] Tizanidine HCl 4 mg PO TID PRN 02/09/17 [History] 3 Allergy/AdvReac Type Severity Reaction Status Date / Time No Known Allergies Allergy Verified 02/17/17 09:08 All Systems PM: A 10-system review of systems was performed and is negative for pertinent findings except as documented above in the HPI. - Constitutional Vitals: Temp Pulse Resp BP Pulse Ox 98.3 F 102 14 136/88 98 02/17/17 13:48 02/17/17 14:50 02/17/17 14:50 02/17/17 14:50 02/17/17 14:50 General appearance: Present: A&O X 3, no acute distress, answers questions appropriately - Head Head exam: Present: atraumatic, normocephalic - Eye Eye exam: Present: PERRL, conjuntiva pink, sclera anicteric Pupils: Present: PERRL - Neck Neck exam general surgery: Present: supple, trachea midline. Absent: lymphadenopathy - Respiratory Respiratory exam: Present: CTAB. Absent: accessory muscle use, rales, rhonchi, wheezes - Cardiovascular Cardiovascular exam: Present: RRR, +S1, +S2. Absent: diastolic murmur, gallop, rubs, systolic murmur - GI/Abdominal GI/Abdominal exam: Present: normal bowel sounds, soft, tenderness (Abdominal tenderness mainly on LUQ with guarding, no rebound. Lopez's sign negative), no peritoneal signs. Absent: distended - Extremities Exam Extremities exam: Present: warm, radial pulses palpable and symmetrical. Absent : calf tenderness, cyanotic, pedal edema - Neurological Exam Neurological exam: Present: CN II-XII intact, oriented X3, no focal deficits. Absent: pronater drift, facial droop, speech deficit - Skin Skin exam: Present: dry, intact Internal Med - H&P Results - Labs CBC & Chem 7: 02/17/17 09:30 02/17/17 09:30
[2017-02-17] MEDS: Insulin LISPRO 300 UNITS/3 ML VIAL SQ SCH (17:45)
[2017-02-17] MEDS: *HR* Heparin 5,000 UNIT/ML VIAL SQ SCH (17:53)
[2017-02-17] MEDS: 0.9 % Sodium Chloride 1,000 ML IVC SCH (17:54)
[2017-02-17] MEDS: Pantoprazole 40 MG VIAL IVP SCH (20:16)
[2017-02-17] MEDS: *HR* HYDROmorphone (PF) 1 MG/ML SYRINGE IVP PRN (20:16)
[2017-02-17] MEDS ORDERED: Insulin DETEMIR 100 UNIT/ML X5UNITS SQ SCH (21:00)
[2017-02-18] MEDS: MetroNIDAZOLE 500 MG/100 ML 500 MG/100 ML BAG IVPB SCH ×2 (01:06→10:20)
[2017-02-18] MEDS: *HR* HYDROmorphone (PF) 1 MG/ML SYRINGE IVP PRN ×3 (04:04→14:50)
[2017-02-18] MEDS: *HR* Heparin 5,000 UNIT/ML VIAL SQ SCH ×2 (05:16→17:32)
[2017-02-18 06:02] LABS: Basophils # 0.1 K/mcL (0.0-0.2); Basophils % 0.5 %; Eosinophils # 0.5 K/mcL (0.0-0.6); Eosinophils % 4.8 %; Hematocrit 41.9 % (37.5-50.1); Immature Granulocytes % 0.5 % (0-4); Lymphocytes # 2.9 K/mcL (0.6-4.6); Lymphocytes % 29.2 %; Mean Corpuscular HGB Conc 31.7 g/dL (31.6-35.5); Mean Corpuscular Hemoglobin 27.8 pg (28.0-33.3); Mean Corpuscular Volume 87.5 fL (83.0-100.0); Mean Platelet Volume 10.7 fL (9.4-12.4); Monocytes % 10.2 %; Neutrophils # 5.4 K/mcL (1.6-8.9); Platelet Count 306 K/mcL (140-400); Red Blood Count 4.79 M/mcL (4.19-5.50); Red Cell Distribution Width 13.3 % (11.5-14.5); Segmented Neutrophils % 54.8 %
[2017-02-18 06:05] LABS: INR 1.1; Prothrombin Time 11.5 Seconds (9.4-12.1)
[2017-02-18 06:07] LABS: Hemoglobin 13.3 g/dL (12.9-16.9)
[2017-02-18 06:21] LABS: Alanine Aminotransferase 11 Units/L (0-55); Albumin/Globulin Ratio 0.9 (1.1-2.2); Alkaline Phosphatase 59 Units/L (38-126); Aspartate Amino Transferase 11 Units/L (5-34); BUN/Creatinine Ratio 16 (6-26); Bilirubin,Total 0.4 mg/dL (0.2-1.2); Blood Urea Nitrogen 15 mg/dL (8-26); Calcium 8.9 mg/dL (8.6-10.8); Carbon Dioxide 24 mEq/L (19-29); Chloride 104 mEq/L (98-109); Chol/HDL Ratio 5.7 (0-4.9); Cholesterol 181 mg/dL (< 200); Globulin 3.2 g/dL (2.4-3.5); Glucose 235 mg/dL (70-99); HDL Cholesterol 32 mg/dL (40-59); LDL Cholesterol,Calculated 84 mg/dL (0-99); Magnesium 1.5 mg/dL (1.6-2.6); Osmolality,Calculated 294 (280-300); Sodium 138 mEq/L (136-145); Triglycerides 325 mg/dL (< 150); eGFR For African Americans > 60 (> 60); eGFR For Non-African Americans > 60 (> 60)
[2017-02-18 06:27] LABS: Albumin 2.9 g/dL (3.5-5.0); Potassium 3.8 mEq/L (3.5-4.5); Total Protein 6.1 g/dL (6.0-8.3)
[2017-02-18] MEDS: Insulin LISPRO 300 UNITS/3 ML VIAL SQ SCH ×5 (06:29→23:27)
[2017-02-18] MEDS ORDERED: Magnesium Sulfate 2 GM in D5% in Water 100 ML IVPB ONE (07:18)
[2017-02-18 07:35] LABS: Lipase 37 Units/L (8-78)
[2017-02-18] MEDS ORDERED: tiZANidine 4 MG TABLET PO PRN (07:58)
[2017-02-18] MEDS ORDERED: Nitroglycerin 0.4 MG TAB.SUBL SL PRN (07:58)
[2017-02-18] MEDS: Fenofibrate 54 MG TABLET PO SCH (09:41)
[2017-02-18] MEDS: Gabapentin 400 MG CAPSULE PO SCH ×3 (09:41→20:48)
[2017-02-18] MEDS: Aspirin Enteric Coated 81 MG Tablet PO SCH (09:41)
[2017-02-18] MEDS: Pantoprazole 40 MG VIAL IVP SCH ×2 (09:42→20:40)
[2017-02-18] MEDS: 0.9 % Sodium Chloride 1,000 ML IVC SCH ×4 (10:19→23:28)
[2017-02-18] MEDS: *HR* HYDROcodone/Acet 5/325 mg TABLET PO PRN (17:28)
--- NOTE | 2017-02-18 18:57 | Internal Med Progress Note ---
Date of Encounter: 02/18/17 Time of Encounter: 09:00 - Assessment and plan (1) DM2 (diabetes mellitus, type 2) Current Visit: No Status: Chronic Assessment and plan: Continue basal and a sliding-scale insulin Qualifiers: Diabetes mellitus complication status: with hyperglycemia Diabetes mellitus fpc insulin use: with long term care social worker use Qualified Code(s): E11.65 - Type 2 diabetes mellitus with hyperglycemia; Z79.4 - custodial (current) use of insulin (2) CAD (coronary artery disease) Current Visit: No Status: Chronic Assessment and plan: Continue home medications. 3 sets of troponin negative. Qualifiers: Coronary Disease-Associated Artery/Lesion type: bypass graft [place] vs. transplanted heart: [place] heart Associated angina: without angina Qualified Code(s): I25.810 - Atherosclerosis of coronary artery bypass graft(s) without angina pectoris (3) PVD (peripheral vascular disease) Current Visit: No Status: Chronic Assessment and plan: Continue aspirin and Plavix. Patient had left BKA (4) Seizure Current Visit: No Status: Chronic Assessment and plan: Continue home medications Dilantin (5) Abdominal pain Current Visit: No Status: Acute Assessment and plan: Etiology is undetermined. So far imaging study shows stable pancreas mass, probably patient has chronic pancreatitis. Lipase is stable. Also esophagitis found by EGD may account for pain. Continue IV fluid, advanced diet as tolerated, continue PPI and Carafate. Continue Creon for chronic pancreatitis. Continue pain management. Will follow GI further recommendation Qualifiers: Abdominal location: left upper quadrant Qualified Code(s): R10.12 - Left upper quadrant pain (6) Choledocholithiasis Current Visit: No Status: Acute Assessment and plan: Stable. no signs of cholecystitis - Time Spent With Patient 25 - 35 minutes - Subjective Interval history: Patient is a 56-year-old male. Admitted for abdominal pain. History of chronic pancreatitis and cholelithiasis, CAD, diabetes, PVD, and a seizure I saw and examined the patient today. Patient is still complaining left upper quadrant pain, tenderness on palpation. US abdominal shows no signs of cholecystitis, WBC get down today, will DC antibiotic. Advance diet as tolerated, continue IV fluid avoid the dehydration. Repeat lipase not elevated. No signs of acute pancreatitis. EGD shows esophagitis. Continue PPI and Carafate. - Constitutional Vitals: Temp Pulse Resp BP Pulse Ox 98.3 F 92 15 123/70 95 02/18/17 16:54 02/18/17 16:54 02/18/17 16:54 02/18/17 16:54 02/18/17 16:54 General appearance: Present: A&O X 3, no acute distress, answers questions appropriately - Head Head exam: Present: atraumatic, normocephalic - Eye Eye exam: Present: PERRL, conjuntiva pink, sclera anicteric Pupils: Present: PERRL - Neck Neck exam general surgery: Present: supple, trachea midline. Absent: lymphadenopathy - Respiratory Respiratory exam: Present: CTAB. Absent: accessory muscle use, rales, rhonchi, wheezes - Cardiovascular Cardiovascular exam: Present: RRR, +S1, +S2. Absent: diastolic murmur, gallop, rubs, systolic murmur - GI/Abdominal GI/Abdominal exam: Present: normal bowel sounds, soft, tenderness (LUQ tenderness without guarding or rebound), no peritoneal signs. Absent: distended - Extremities Exam Extremities exam: Present: warm, radial pulses palpable and symmetrical. Absent : calf tenderness, cyanotic, pedal edema - Neurological Exam Neurological exam: Present: CN II-XII intact, oriented X3, no focal deficits. Absent: pronater drift, facial droop, speech deficit - Skin Skin exam: Present: dry, intact Internal Medicine: Result - Labs CBC & Chem 7: 02/18/17 05:41 02/18/17 05:41 Labs: Short CBC 02/18/17 Range/Units 05:41 WBC 9.8 (4.3-11.1) K/mcL Hgb 13.3 D (12.9-16.9) g/dL Hct 41.9 (37.5-50.1) % Plt Count 306 (140-400) K/mcL Neutrophils # 5.4 (1.6-8.9) K/mcL BMP 02/18/17 05:41 Sodium 138 Potassium 3.8 D Chloride 104 Carbon Dioxide 24 BUN 15 Creatinine 0.95 Glucose 235 H Calcium 8.9 Cardiac Enzymes 02/17/17 02/18/17 Range/Units 22:16 05:41 Troponin I 0.00 0.00 (0-0.03) ng/mL Liver Function 02/18/17 Range/Units 05:41 Total Bilirubin 0.4 (0.2-1.2) mg/dL AST 11 (5-34) Units/L ALT 11 (0-55) Units/L Alkaline Phosphatase 59 (38-126) Units/L Albumin 2.9 L D (3.5-5.0) g/dL - ABG Interpretation ABG results: PT/INR, D-dimer PT 11.5 Seconds (9.4-12.1) 02/18/17 05:41 Consult Discharge Plan - Plan Referrals: Suleman Fonseca MD [Primary Care Provider] -
[2017-02-18] MEDS: Insulin DETEMIR 100 UNIT/ML X5UNITS SQ SCH (20:50)
[2017-02-18] MEDS: Sucralfate 1 GM TABLET PO SCH (20:50)
[2017-02-19 04:42] LABS: Basophils # 0.1 K/mcL (0.0-0.2); Basophils % 0.8 %; Eosinophils # 0.4 K/mcL (0.0-0.6); Eosinophils % 4.7 %; Hematocrit 37.7 % (37.5-50.1); Hemoglobin 12.2 g/dL (12.9-16.9); Immature Granulocytes % 0.9 % (0-4); Lymphocytes # 3.6 K/mcL (0.6-4.6); Lymphocytes % 38.6 %; Mean Corpuscular HGB Conc 32.4 g/dL (31.6-35.5); Mean Corpuscular Hemoglobin 28.5 pg (28.0-33.3); Mean Corpuscular Volume 88.1 fL (83.0-100.0); Mean Platelet Volume 10.6 fL (9.4-12.4); Monocytes % 10.7 %; Neutrophils # 4.1 K/mcL (1.6-8.9); Platelet Count 289 K/mcL (140-400); Red Blood Count 4.28 M/mcL (4.19-5.50); Red Cell Distribution Width 13.3 % (11.5-14.5); Segmented Neutrophils % 44.3 %
[2017-02-19 04:54] LABS: BUN/Creatinine Ratio 13 (6-26); Blood Urea Nitrogen 12 mg/dL (8-26); Calcium 8.8 mg/dL (8.6-10.8); Carbon Dioxide 28 mEq/L (19-29); Chloride 103 mEq/L (98-109); Glucose 184 mg/dL (70-99); Osmolality,Calculated 289 (280-300); Potassium 3.5 mEq/L (3.5-4.5); Sodium 137 mEq/L (136-145); eGFR For African Americans > 60 (> 60); eGFR For Non-African Americans > 60 (> 60)
[2017-02-19] MEDS: *HR* Heparin 5,000 UNIT/ML VIAL SQ SCH ×2 (05:57→18:04)
[2017-02-19] MEDS: Fenofibrate 54 MG TABLET PO SCH (09:33)
[2017-02-19] MEDS: Insulin LISPRO 300 UNITS/3 ML VIAL SQ SCH ×4 (09:33→22:05)
[2017-02-19] MEDS: Sucralfate 1 GM TABLET PO SCH ×4 (09:34→22:04)
[2017-02-19] MEDS: Aspirin Enteric Coated 81 MG Tablet PO SCH (09:34)
[2017-02-19] MEDS: *HR* HYDROcodone/Acet 5/325 mg TABLET PO PRN (09:34)
[2017-02-19] MEDS: Gabapentin 400 MG CAPSULE PO SCH ×3 (09:35→22:05)
[2017-02-19] MEDS: Pantoprazole 40 MG VIAL IVP SCH ×2 (09:43→22:26)
[2017-02-19] MEDS: 0.9 % Sodium Chloride 1,000 ML IVC SCH ×2 (13:03→22:27)
--- NOTE | 2017-02-19 17:45 | Internal Med Progress Note ---
Date of Encounter: 02/19/17 Time of Encounter: 10:00 - Assessment and plan (1) DM2 (diabetes mellitus, type 2) Current Visit: No Status: Chronic Assessment and plan: Continue basal and a sliding-scale insulin Qualifiers: Diabetes mellitus complication status: with hyperglycemia Diabetes mellitus long-term insulin use: with supervisor intermediates use Qualified Code(s): E11.65 - Type 2 diabetes mellitus with hyperglycemia; Z79.4 - alf (current) use of insulin (2) CAD (coronary artery disease) Current Visit: No Status: Chronic Assessment and plan: Continue home medications. 3 sets of troponin negative. Qualifiers: Coronary Disease-Associated Artery/Lesion type: bypass graft [place] vs. transplanted heart: [place] heart Associated angina: without angina Qualified Code(s): I25.810 - Atherosclerosis of coronary artery bypass graft(s) without angina pectoris (3) PVD (peripheral vascular disease) Current Visit: No Status: Chronic Assessment and plan: Continue aspirin and Plavix. Patient had left BKA (4) Seizure Current Visit: No Status: Chronic Assessment and plan: Continue home medications Dilantin (5) Abdominal pain Current Visit: No Status: Acute Assessment and plan: Etiology is undetermined. So far imaging study shows stable pancreas mass, probably pain is due to that patient has chronic pancreatitis. Lipase is stable. Also esophagitis found by EGD may account for pain. Continue IV fluid , advanced diet as tolerated, continue PPI and Carafate. Continue Creon for chronic pancreatitis. Continue pain management. Will follow GI further recommendation Qualifiers: Abdominal location: left upper quadrant Qualified Code(s): R10.12 - Left upper quadrant pain (6) Choledocholithiasis Current Visit: No Status: Acute Assessment and plan: Stable. no signs of cholecystitis - Time Spent With Patient 25 - 35 minutes - Subjective Interval history: Patient is a 56-year-old male. Admitted for abdominal pain. History of chronic pancreatitis and cholelithiasis, CAD, diabetes, PVD, and a seizure I saw and examined the patient today. Patient is still complaining left upper quadrant pain, tenderness on palpation. Tolerate diet now, finished about half of his breakfast, will continue IV fluid avoid the dehydration. cont pain control and supportive treatment. - Constitutional Vitals: Temp Pulse Resp BP Pulse Ox 97.5 F L 92 15 106/70 97 02/19/17 16:17 02/19/17 16:17 02/19/17 16:17 02/19/17 16:17 02/19/17 16:17 General appearance: Present: A&O X 3, no acute distress, answers questions appropriately - Head Head exam: Present: atraumatic, normocephalic - Eye Eye exam: Present: PERRL, conjuntiva pink, sclera anicteric Pupils: Present: PERRL - Neck Neck exam general surgery: Present: supple, trachea midline. Absent: lymphadenopathy - Respiratory Respiratory exam: Present: CTAB. Absent: accessory muscle use, rales, rhonchi, wheezes - Cardiovascular Cardiovascular exam: Present: RRR, +S1, +S2. Absent: diastolic murmur, gallop, rubs, systolic murmur - GI/Abdominal GI/Abdominal exam: Present: normal bowel sounds, soft, tenderness (LUQ ), no peritoneal signs. Absent: distended - Extremities Exam Extremities exam: Present: warm, radial pulses palpable and symmetrical. Absent : calf tenderness, cyanotic, pedal edema - Neurological Exam Neurological exam: Present: CN II-XII intact, oriented X3, no focal deficits. Absent: pronater drift, facial droop, speech deficit - Skin Skin exam: Present: dry, intact Internal Medicine: Result - Labs CBC & Chem 7: 02/19/17 04:31 02/19/17 04:31 Labs: Short CBC 02/19/17 Range/Units 04:31 WBC 9.3 (4.3-11.1) K/mcL Hgb 12.2 L (12.9-16.9) g/dL Hct 37.7 (37.5-50.1) % Plt Count 289 (140-400) K/mcL Neutrophils # 4.1 (1.6-8.9) K/mcL BMP 02/19/17 04:31 Sodium 137 Potassium 3.5 Chloride 103 Carbon Dioxide 28 BUN 12 Creatinine 0.92 Glucose 184 H Calcium 8.8 - ABG Interpretation ABG results: PT/INR, D-dimer PT 11.5 Seconds (9.4-12.1) 02/18/17 05:41 Consult Discharge Plan - Plan Referrals: Suleman Fonseca MD [Primary Care Provider] -
[2017-02-19] MEDS: MetroNIDAZOLE 500 MG/100 ML 500 MG/100 ML BAG IVPB SCH (19:55)
[2017-02-19] MEDS: Insulin DETEMIR 100 UNIT/ML X5UNITS SQ SCH (22:06)
[2017-02-20] MEDS: *HR* Heparin 5,000 UNIT/ML VIAL SQ SCH ×2 (06:00→16:22)
[2017-02-20] MEDS ORDERED: Magnesium Sulfate 2 GM in D5% in Water 100 ML IVPB ONE (08:02)
[2017-02-20] MEDS: Pantoprazole 40 MG VIAL IVP SCH (08:06)
[2017-02-20] MEDS: Magnesium Oxide 400 MG TABLET PO SCH ×2 (09:30→21:09)
[2017-02-20] MEDS: Aspirin Enteric Coated 81 MG Tablet PO SCH (09:31)
[2017-02-20] MEDS: Gabapentin 400 MG CAPSULE PO SCH ×3 (09:31→21:10)
[2017-02-20] MEDS: Fenofibrate 54 MG TABLET PO SCH (09:31)
[2017-02-20] MEDS: Sucralfate 1 GM TABLET PO SCH ×4 (09:31→21:10)
[2017-02-20] MEDS: Insulin LISPRO 300 UNITS/3 ML VIAL SQ SCH ×3 (09:31→16:23)
--- NOTE | 2017-02-20 16:52 | Internal Med Progress Note ---
Date of Encounter: 02/20/17 Time of Encounter: 09:00 - Assessment and plan (1) DM2 (diabetes mellitus, type 2) Current Visit: No Status: Chronic Assessment and plan: Continue basal and a sliding-scale insulin. Will adjust dose to get better Glu control. Qualifiers: Diabetes mellitus complication status: with hyperglycemia Diabetes mellitus continuous churn buttermaker insulin use: with continuous churn buttermaker use Qualified Code(s): E11.65 - Type 2 diabetes mellitus with hyperglycemia; Z79.4 - buttermaker continuous churn (current) use of insulin (2) CAD (coronary artery disease) Current Visit: No Status: Chronic Assessment and plan: Continue home medications. 3 sets of troponin negative. Qualifiers: Coronary Disease-Associated Artery/Lesion type: bypass graft [place] vs. transplanted heart: [place] heart Associated angina: without angina Qualified Code(s): I25.810 - Atherosclerosis of coronary artery bypass graft(s) without angina pectoris (3) PVD (peripheral vascular disease) Current Visit: No Status: Chronic Assessment and plan: Continue aspirin and Plavix. Patient had left BKA (4) Seizure Current Visit: No Status: Chronic Assessment and plan: Continue home medications Dilantin (5) Abdominal pain Current Visit: No Status: Acute Assessment and plan: Etiology is undetermined. So far imaging study shows stable pancreas mass, probably pain is due to that patient has chronic pancreatitis. Lipase is stable and WNL. Also esophagitis found by EGD may account for pain. DC IV fluid as pt tolerate diet well, continue PPI and Carafate. Continue pain management. Pt has diarrhea, will check C Diff. Qualifiers: Abdominal location: left upper quadrant Qualified Code(s): R10.12 - Left upper quadrant pain (6) Choledocholithiasis Current Visit: No Status: Acute Assessment and plan: Stable. no signs of cholecystitis - Time Spent With Patient 25 - 35 minutes - Subjective Interval history: Patient is a 56-year-old male. Admitted for abdominal pain. History of chronic pancreatitis and cholelithiasis, CAD, diabetes, PVD, and a seizure I saw and examined the patient today. Patient has much less pain. Tolerate diet well. Report diarrhea, will check stool to r/o C Diff. cont supportive treatment. - Constitutional Vitals: Temp Pulse Resp BP Pulse Ox 97.9 F 95 14 134/80 95 02/20/17 14:52 02/20/17 14:52 02/20/17 14:52 02/20/17 14:52 02/20/17 14:52 General appearance: Present: A&O X 3, no acute distress, answers questions appropriately - Head Head exam: Present: atraumatic, normocephalic - Eye Eye exam: Present: PERRL, conjuntiva pink, sclera anicteric Pupils: Present: PERRL - Neck Neck exam general surgery: Present: supple, trachea midline. Absent: lymphadenopathy - Respiratory Respiratory exam: Present: CTAB. Absent: accessory muscle use, rales, rhonchi, wheezes - Cardiovascular Cardiovascular exam: Present: RRR, +S1, +S2. Absent: diastolic murmur, gallop, rubs, systolic murmur - GI/Abdominal GI/Abdominal exam: Present: normal bowel sounds, soft, tenderness (On LUQ, no rebound), no peritoneal signs. Absent: distended - Extremities Exam Extremities exam: Present: warm, radial pulses palpable and symmetrical. Absent : calf tenderness, cyanotic, pedal edema - Neurological Exam Neurological exam: Present: CN II-XII intact, oriented X3, no focal deficits. Absent: pronater drift, facial droop, speech deficit - Skin Skin exam: Present: dry, intact Internal Medicine: Result - Labs CBC & Chem 7: 02/19/17 04:31 02/19/17 04:31 - ABG Interpretation ABG results: PT/INR, D-dimer PT 11.5 Seconds (9.4-12.1) 02/18/17 05:41 Consult Discharge Plan - Plan Referrals: Suleman Fonseca MD [Primary Care Provider] - (We have requested a follow up appointment with Dr Fonseca. The office will call you at home with an appointment date and time.)
[2017-02-20] MEDS ORDERED: Insulin LISPRO 300 UNITS/3 ML VIAL SQ SCH (16:55)
[2017-02-20] MEDS: 0.9 % Sodium Chloride 1,000 ML IVC SCH (19:15)
[2017-02-20] MEDS ORDERED: Insulin DETEMIR 100 UNIT/ML X5UNITS SQ SCH (21:00)
[2017-02-21 04:34] LABS: Basophils # 0.1 K/mcL (0.0-0.2); Basophils % 0.6 %; Eosinophils # 0.4 K/mcL (0.0-0.6); Hematocrit 39.6 % (37.5-50.1); Lymphocytes # 3.2 K/mcL (0.6-4.6); Lymphocytes % 27.3 %; Mean Corpuscular HGB Conc 32.8 g/dL (31.6-35.5); Mean Corpuscular Hemoglobin 29.1 pg (28.0-33.3); Mean Corpuscular Volume 88.6 fL (83.0-100.0); Mean Platelet Volume 10.9 fL (9.4-12.4); Monocytes # 1.2 K/mcL (0.0-1.3); Monocytes % 10.2 %; Neutrophils # 6.8 K/mcL (1.6-8.9); Platelet Count 335 K/mcL (140-400); Red Blood Count 4.47 M/mcL (4.19-5.50); Red Cell Distribution Width 13.7 % (11.5-14.5); Segmented Neutrophils % 57.9 %
[2017-02-21 04:46] LABS: BUN/Creatinine Ratio 13 (6-26); Blood Urea Nitrogen 13 mg/dL (8-26); Carbon Dioxide 26 mEq/L (19-29); Chloride 103 mEq/L (98-109); Glucose 302 mg/dL (70-99); Osmolality,Calculated 293 (280-300); Potassium 4.2 mEq/L (3.5-4.5); Sodium 136 mEq/L (136-145); eGFR For African Americans > 60 (> 60); eGFR For Non-African Americans > 60 (> 60)
[2017-02-21] MEDS: *HR* Heparin 5,000 UNIT/ML VIAL SQ SCH (05:55)
[2017-02-21] MEDS: Sucralfate 1 GM TABLET PO SCH (10:20)
[2017-02-21] MEDS: Fenofibrate 54 MG TABLET PO SCH (10:20)
[2017-02-21] MEDS: Gabapentin 400 MG CAPSULE PO SCH (10:21)
[2017-02-21] MEDS: Magnesium Oxide 400 MG TABLET PO SCH (10:21)
[2017-02-21] MEDS: Aspirin Enteric Coated 81 MG Tablet PO SCH (10:21)
[2017-02-21] MEDS: Insulin LISPRO 300 UNITS/3 ML VIAL SQ SCH ×2 (10:22→12:48)
--- NOTE | 2017-02-21 12:04 | Discharge Summary ---
Date of Encounter: 02/21/17 Time of Encounter: 11:00 - Discharge Diagnosis (1) DM2 (diabetes mellitus, type 2) Priority: Secondary Status: Chronic Qualifiers: Diabetes mellitus complication status: with hyperglycemia Diabetes mellitus mcfp insulin use: with mcfp use Qualified Code(s): E11.65 - Type 2 diabetes mellitus with hyperglycemia; Z79.4 - alf (current) use of insulin (2) CAD (coronary artery disease) Priority: Secondary Status: Chronic Qualifiers: Coronary Disease-Associated Artery/Lesion type: bypass graft [place] vs. transplanted heart: [place] heart Associated angina: without angina Qualified Code(s): I25.810 - Atherosclerosis of coronary artery bypass graft(s) without angina pectoris (3) PVD (peripheral vascular disease) Priority: Secondary Status: Chronic (4) Seizure Priority: Secondary Status: Chronic (5) Abdominal pain Priority: Primary Status: Acute Qualifiers: Abdominal location: left upper quadrant Qualified Code(s): R10.12 - Left upper quadrant pain (6) Choledocholithiasis Priority: Secondary Status: Acute - Discharge Medications Home Medications: Clopidogrel [Plavix] 75 mg PO DAILY 02/04/15 [History] Sertraline [Zoloft] 100 mg PO DAILY 07/31/15 [History] Gabapentin 800 mg PO TID 08/06/16 [History] Nitroglycerin [Nitrostat] 0.4 mg SL Q5M PRN 08/06/16 [History] Simvastatin [Zocor] 40 mg PO HS 08/06/16 [History] Amitriptyline [Elavil] 75 mg PO HS 02/09/17 [History] Aspirin Enteric Coated [Aspirin EC] 81 mg PO DAILY 02/09/17 [History] Dulaglutide [Trulicity] 0.75 mg SQ QWEEK 02/09/17 [History] Fenofibrate Nanocrystallized [Tricor] 145 mg PO DAILY 02/09/17 [History] Insulin ASPART [NovoLOG] 0 unit SQ TIDWM 02/09/17 [History] Insulin Glargine,Hum.rec.anlog [Toujeo Solostar] 60 units SQ DAILY 02/09/17 [ History] Lipase/Protease/Amylase [Baldo Lay 12,000 Units Capsule] 1 each PO AD 02/09/17 [ History] Lipase/Protease/Amylase [Baldo Lay 24,000 Units Capsule] 1 each PO TIDWM [History] Lisinopril 2.5 mg PO DAILY 02/09/17 [History] Metoprolol [Lopressor] 12.5 mg PO BID 02/09/17 [History] Omeprazole [PriLOSEC] 40 mg PO DAILY 02/09/17 [History] Phenytoin ER [Dilantin ER] 100 mg PO TID 02/09/17 [History] Tizanidine HCl 4 mg PO TID PRN 02/09/17 [History] Allergies/Adverse Reactions: 3 Allergy/AdvReac Type Severity Reaction Status Date / Time No Known Allergies Allergy Verified 02/17/17 09:08 - Notes to Outpatient Provider Add carafate 1 g qid per GI recommendation. Date of admission: 02/17/17 12:40 Primary care physician: Suleman Fonseca MD Discharging clinician: Tom Gill Anticipated date of discharge: 02/21/17 - Patient Status Disposition: Home, Self-Care Condition: Good Functional capacity at discharge: independent ambulation Overall status at discharge: patient is back to baseline - Discharge Instructions Follow Up With: Suleman Fonseca MD [Primary Care Provider] - (We have requested a follow up appointment with Dr Fonseca. The office will call you at home with an appointment date and time.) - Diet and Activity Activity: increase activity as tolerated Diet: diabetic diet Interval History: HPI: Mr. Slaughter is a 56 year old male with history of diabetes, history of CVA with seizure disorder, CAD S/P stent, PAD S/P stenting and left BKA, history of pancreatitis present to ER for abdominal pain. Patient said he has abdominal pain since February 04, worsening since last night, with nausea but no vomiting. Patient has no shortness of breath. The pain is located on upper abdominal and lower chest area. Patient has a chills but are not sure if he has fever. The pain is constant, not related to eating. Abdominal CT in emergency room did not show any acute change. Patient do have chronic stable pancreas mass and cholelithiasis. Patient was admitted for further management. Patient is full code. Hospital course: Mr. Slaughter is a 56 year old male admitted for nausea vomiting abdominal pain. Patient has a history of gallstone and chronic pancreatitis. Patient was placed on nothing by mouth, IV fluids, symptomatic treatment for nausea and vomiting. GI consult was called and patient had EGD, which shows esophagitis. Patient was treated with PPI and Carafate. Patient with her the best the diet gradually. CT abdomen and US abd has been done, patient has no cholecystitis. After treatment, patient's condition has improved. He tolerated regular diabetic diet well. Patient will discharge home and follow-up with GI as outpatient. I saw and examined the patient today. He is awake alert and oriented 3. Mild left upper quadrant pain but did tolerate well. Vitals are stable. Patient was noticed to mild elevated WBC. He denies a fever, sore throat, cough, or urination symptoms. His diarrhea has been stopped, C. difficile test negative. Patient is stable to discharge home and follow-up as outpatient with GI. - Time Spent with Patient Total time spent providing and/or coordinating discharge services: 40 minutes Greater than 30 minutes - Constitutional Vitals: Temp Pulse Resp BP Pulse Ox 98.0 F 86 17 123/76 97 02/21/17 07:21 02/21/17 07:21 02/21/17 07:21 02/21/17 07:21 02/21/17 07:21 General appearance: Present: A&O X 3, no acute distress, answers questions appropriately - Head Head exam: Present: atraumatic, normocephalic - Eye Eye exam: Present: PERRL, conjuntiva pink, sclera anicteric Pupils: Present: PERRL - Neck Neck exam general surgery: Present: supple, trachea midline. Absent: lymphadenopathy - Respiratory Respiratory exam: Present: CTAB. Absent: accessory muscle use, rales, rhonchi, wheezes - Cardiovascular Cardiovascular exam: Present: RRR, +S1, +S2. Absent: diastolic murmur, gallop, rubs, systolic murmur - GI/Abdominal GI/Abdominal exam: Present: normal bowel sounds, soft, tenderness (Mild LUQ tenderness), no peritoneal signs. Absent: distended - Extremities Exam Extremities exam: Present: warm, radial pulses palpable and symmetrical. Absent : calf tenderness, cyanotic, pedal edema - Neurological Exam Neurological exam: Present: CN II-XII intact, oriented X3, no focal deficits. Absent: pronater drift, facial droop, speech deficit - Skin Skin exam: Present: dry, intact
[2017-02-21 12:25] VITALS: BP 107/73
--- NOTE | 2017-02-21 20:55 | Electrocardiograph Report ---
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
== END 2017-02-21 14:40 | disposition home or self-care (01) ==
LOC: EMEROO 09:03 → 3BNU 09:03 → SUATTDRO 12:40 → 3BNU 13:36
PROVIDERS: ADMIT Internal Medicine; ATTEND Internal Medicine

== ENCOUNTER 2017-03-06 19:40 | Inpatient (IN) ==
[2017-03-06] MEDS ORDERED: 0.9 % Sodium Chloride 1,000 ML IVC ONE ×2 (19:50→20:18)
[2017-03-06] MEDS ORDERED: Ondansetron 4 MG/2 ML VIAL IVP ONE (19:50)
[2017-03-06] MEDS ORDERED: *HR* FentaNYL (PF) 100 MCG/2 ML VIAL IVP ONE (19:50)
--- NOTE | 2017-03-06 19:54 | Emergency Department Note ---
Disposition Clinical Impression: Diabetic ketosis, Pain, postoperative, acute Nausea and vomiting Qualifiers: Vomiting type: unspecified Vomiting Intractability: non-intractable Qualified Code(s): R11.2 - Nausea with vomiting, unspecified Disposition: Admitted As Inpatient Condition: Fair Nausea/Vomiting/Diarrhea HPI - General Chief complaint: ED Nausea/Vomiting/Diarrhea Stated complaint: N/V Time Seen by Provider: 03/06/17 19:48 Source: patient, EMS Mode of arrival: EMS Limitations: no limitations Nursing Notes Reviewed: Yes Vital Signs Reviewed: Yes - History of Present Illness HPI Narrative: 56-year-old male with history of insulin-dependent diabetes arrives to [facility] emergency department complaining of nausea, vomiting, abdominal pain is worsening status post cholecystectomy by Dr. Huertas. The patient states that over the past few days has progressively gotten worse. Patient denies any fevers or chills that are new. The patient does have diffuse tenderness to his abdomen with surgical incisions that appear well and her closed this time. The patient does have a history of insulin-dependent diabetes with a glucose in the 400s area the patient denies any other complaints at this time. He is resting comfortably in the bed with the exception of moderate to severe tenderness to palpation of the right side of his abdomen. Pt Subjective Complaint: nausea, vomiting, abdominal pain Onset (ago): day(s) (3) Description of emesis: food contents, watery Severity: moderate, severe Severity scale (1-10): 8 Quality: stabbing Consistency: constant, Worsening Context: history of abdominal surgery Associated symptoms: Reports: nausea/vomiting - Related Data Home Medications Medication Instructions Recorded Confirmed Clopidogrel [Plavix] 75 mg PO DAILY 02/04/15 02/24/17 Sertraline [Zoloft] 100 mg PO DAILY 07/31/15 02/24/17 Gabapentin 800 mg PO TID 08/06/16 02/24/17 Nitroglycerin [Nitrostat] 0.4 mg SL Q5M PRN 08/06/16 02/24/17 Simvastatin [Zocor] 40 mg PO HS 08/06/16 02/24/17 Amitriptyline [Elavil] 75 mg PO HS 02/09/17 02/24/17 Aspirin Enteric Coated [Aspirin EC] 81 mg PO DAILY 02/09/17 02/24/17 Dulaglutide [Trulicity] 0.75 mg SQ QWEEK 02/09/17 02/24/17 Fenofibrate Nanocrystallized 145 mg PO DAILY 02/09/17 02/24/17 [Tricor] Insulin ASPART [NovoLOG] 0 unit SQ TIDWM 02/09/17 02/24/17 Insulin Glargine,Hum.rec.anlog 60 units SQ DAILY 02/09/17 02/24/17 [Phyllis Espinosa] Lipase/Protease/Amylase [Baldo Lay 1 each PO AD 02/09/17 02/24/17 12,000 Units Capsule] Lipase/Protease/Amylase [Baldo Lay 1 each PO TIDWM 02/09/17 02/24/17 24,000 Units Capsule] Lisinopril 2.5 mg PO DAILY 02/09/17 02/24/17 Metoprolol [Lopressor] 12.5 mg PO BID 02/09/17 02/24/17 Omeprazole [PriLOSEC] 40 mg PO DAILY 02/09/17 02/24/17 Phenytoin ER [Dilantin ER] 100 mg PO TID 02/09/17 02/24/17 Tizanidine HCl 4 mg PO TID PRN 02/09/17 02/24/17 Previous Rx's Medication Instructions Recorded Sucralfate [Carafate] 1 gm PO QIDAC #120 tab 02/21/17 Docusate [Colace] 100 mg PO BID #60 capsule 02/28/17 OxyCODONE/APAP 10/325 [Percocet 1 each PO Q4HR PRN #42 tablet 02/28/17 10/325 MG] Allergies Allergy/AdvReac Type Severity Reaction Status Date / Time No Known Allergies Allergy Verified 02/24/17 14:10 All systems ED: reviewed and negative except as stated. Constitutional: Denies: fever, chills, weakness, weight change Cardiovascular: Denies: chest pain, palpitations, dyspnea on exertion, edema, syncope Respiratory: Denies: cough, dyspnea, wheezes, hemoptysis, stridor Gastrointestinal: Reports: abdominal pain, nausea, vomiting. Denies: diarrhea, constipation, hematemesis, melena, hematochezia Genitourinary: Denies: urgency, dysuria, frequency Musculoskeletal: Denies: back pain Neurological: Denies: headache, weakness, numbness Past Medical History - Past Medical History Attestation: Yes The following information was validated with the patient. Source: patient, old records reviewed Medical history: Reports: CHF, coronary artery disease, CVA, diabetes, hyperlipidemia, hypertension, myocardial infarction, seizures, other Surgical history: Reports: coronary bypass (CABG), other (Exploratory laparotomy for bowel obstruction in the remote past, upper midline incision) Psychiatric history: Reports: anxiety, depression - Social History Smoking Status: Former smoker Smokeless Tobacco Status: No Alcohol use: Reports: none Drug use: Reports: none Physical Exam - General Limitations: no limitations General appearance: alert, in no apparent distress - Head Head exam: atraumatic, normocephalic, normal inspection - Neck Neck exam: Present: normal inspection, full ROM, trachea midline - Chest Chest inspection: Present: normal inspection, symmetric chest wall rise - Respiratory Respiratory exam: Present: normal lung sounds bilaterally - Cardiovascular Cardiovascular exam: Present: normal rhythm, tachycardia, normal heart sounds - Abdominal Exam Abdominal exam: Present: soft, tenderness, guarding, incision (Intact and non- erythematous). Absent: distention, rebound, rigidity Abdominal tenderness: Present: diffuse - Extremities Exam Extremities exam: Present: normal inspection, full ROM. Absent: tenderness, pedal edema Course Vital Signs Temperature 98.7 F 03/06/17 19:42 Pulse Rate 111 03/06/17 19:42 Respiratory Rate 20 03/06/17 19:42 Blood Pressure 126/80 03/06/17 19:42 O2 Sat by Pulse Oximetry 95 03/06/17 19:42 Temperature 97.6 F 03/07/17 03:44 Pulse Rate 100 03/07/17 03:44 Respiratory Rate 18 03/07/17 03:44 Blood Pressure 129/84 03/07/17 03:44 O2 Sat by Pulse Oximetry 96 03/07/17 03:44 Oxygen Delivery Oxygen Delivery Room Air Nausea/Vomiting/Diarrhea - MDM Narrative Medical decision making narrative: Patient's CT demonstrates no acute findings with the exception of some intraperitoneal free air which is likely postsurgical. The patient does have a leukocytosis. The patient does appear to have diabetic ketosis without acidosis. The patient was administered 2 L IV fluids. We will start him on testing as well. The patient agrees to plan. He has had nausea that is well controlled with Zofran here in the emergency department. His pain is under control at this time. We will admit the patient to the hospitalist group at this time. Accepted by Dr. Jones - Medical Records Medical records reviewed: Yes I reviewed the patient's medical records. - Lab Data Lab results reviewed: Yes I reviewed the patient's lab results. Result diagrams: 03/07/17 01:18 03/07/17 01:18 Lab Results 03/06/17 03/06/17 03/06/17 Range/Units 19:52 20:00 20:00 WBC 17.4 H (4.3-11.1) K/mcL RBC 4.87 (4.19-5.50) M/mcL Hgb 13.5 (12.9-16.9) g/dL Hct 43.0 (37.5-50.1) % MCV 88.3 (83.0-100.0) fL MCH 27.7 L (28.0-33.3) pg MCHC 31.4 L (31.6-35.5) g/dL RDW 13.1 (11.5-14.5) % Plt Count 615 H (140-400) K/mcL MPV 10.0 (9.4-12.4) fL Immature Gran % 0.9 (0-4) % Seg Neutrophils % 73.8 % Lymphocytes % 12.1 % Monocytes % 8.3 % Eosinophils % 4.3 % Basophils % 0.6 % Neutrophils # 12.8 H (1.6-8.9) K/mcL Lymphocytes # 2.1 (0.6-4.6) K/mcL Monocytes # 1.5 H (0.0-1.3) K/mcL Eosinophils # 0.7 H (0.0-0.6) K/mcL Basophils # 0.1 (0.0-0.2) K/mcL VBG pH (7.32-7.42) pH Units VBG pCO2 (41-51) mmHg VBG pO2 (25-40) mmHg VBG HCO3 (21-27) mEq/L Sodium 139 (136-145) mEq/L Potassium 4.0 (3.5-4.5) mEq/L Chloride 100 (98-109) mEq/L Carbon Dioxide 25 (19-29) mEq/L BUN 13 (8-26) mg/dL Creatinine 1.05 (0.72-1.25) mg/dL Est GFR ( Amer) > 60 (> 60) Est GFR (Non-Af Amer) > 60 (> 60) BUN/Creatinine Ratio 12 (6-26) Glucose 413 H (70-99) mg/dL POC Glucose 355 H (58-89) Calculated Osmolality 306 H (280-300) Calcium 9.8 (8.6-10.8) mg/dL Total Bilirubin 0.4 (0.2-1.2) mg/dL AST 19 (5-34) Units/L ALT 18 (0-55) Units/L Alkaline Phosphatase 146 H (38-126) Units/L Troponin I (0-0.03) ng/mL Serum Total Protein 7.4 (6.0-8.3) g/dL Albumin 3.0 L (3.5-5.0) g/dL Globulin 4.4 H (2.4-3.5) g/dL Albumin/Globulin Ratio 0.7 L (1.1-2.2) Beta-Hydroxybutyric Acd (0.02-0.27) mmol/L Urine Color (Yellow) Urine Clarity (Clear) Urine pH (5.0-8.0) pH Units Ur Specific Powers[place] (1.010-1.025) Urine Protein (Neg-Trace) mg/dL Urine Glucose (UA) (Normal) mg/dL Urine Ketones (Negative) mg/dL Urine Blood (Negative) Urine Nitrite (Negative) Urine Bilirubin (Negative) Urine Urobilinogen (Normal) mg/dL Ur Leukocyte Esterase (Negative) Ur Culture Indicated? (NO) 03/06/17 03/06/17 03/06/17 Range/Units 20:00 20:00 20:00 WBC (4.3-11.1) K/mcL RBC (4.19-5.50) M/mcL Hgb (12.9-16.9) g/dL Hct (37.5-50.1) % MCV (83.0-100.0) fL MCH (28.0-33.3) pg MCHC (31.6-35.5) g/dL RDW (11.5-14.5) % Plt Count (140-400) K/mcL MPV (9.4-12.4) fL Immature Gran % (0-4) % Seg Neutrophils % % Lymphocytes % % Monocytes % % Eosinophils % % Basophils % % Neutrophils # (1.6-8.9) K/mcL Lymphocytes # (0.6-4.6) K/mcL Monocytes # (0.0-1.3) K/mcL Eosinophils # (0.0-0.6) K/mcL Basophils # (0.0-0.2) K/mcL VBG pH 7.37 (7.32-7.42) pH Units VBG pCO2 52 H (41-51) mmHg VBG pO2 29 (25-40) mmHg VBG HCO3 30 H (21-27) mEq/L Sodium (136-145) mEq/L Potassium (3.5-4.5) mEq/L Chloride (98-109) mEq/L Carbon Dioxide (19-29) mEq/L BUN (8-26) mg/dL Creatinine (0.72-1.25) mg/dL Est GFR ( Amer) (> 60) Est GFR (Non-Af Amer) (> 60) BUN/Creatinine Ratio (6-26) Glucose (70-99) mg/dL POC Glucose (58-89) Calculated Osmolality (280-300) Calcium (8.6-10.8) mg/dL Total Bilirubin (0.2-1.2) mg/dL AST (5-34) Units/L ALT (0-55) Units/L Alkaline Phosphatase (38-126) Units/L Troponin I 0.01 (0-0.03) ng/mL Serum Total Protein (6.0-8.3) g/dL Albumin (3.5-5.0) g/dL Globulin (2.4-3.5) g/dL Albumin/Globulin Ratio (1.1-2.2) Beta-Hydroxybutyric Acd > 2.00 H (0.02-0.27) mmol/L Urine Color (Yellow) Urine Clarity (Clear) Urine pH (5.0-8.0) pH Units Ur Specific Powersite (1.010-1.025) Urine Protein (Neg-Trace) mg/dL Urine Glucose (UA) (Normal) mg/dL Urine Ketones (Negative) mg/dL Urine Blood (Negative) Urine Nitrite (Negative) Urine Bilirubin (Negative) Urine Urobilinogen (Normal) mg/dL Ur Leukocyte Esterase (Negative) Ur Culture Indicated? (NO) 03/06/17 03/06/17 Range/Units 20:08 22:10 WBC (4.3-11.1) K/mcL RBC (4.19-5.50) M/mcL Hgb (12.9-16.9) g/dL Hct (37.5-50.1) % MCV (83.0-100.0) fL MCH (28.0-33.3) pg MCHC (31.6-35.5) g/dL RDW (11.5-14.5) % Plt Count (140-400) K/mcL MPV (9.4-12.4) fL Immature Gran % (0-4) % Seg Neutrophils % % Lymphocytes % % Monocytes % % Eosinophils % % Basophils % % Neutrophils # (1.6-8.9) K/mcL Lymphocytes # (0.6-4.6) K/mcL Monocytes # (0.0-1.3) K/mcL Eosinophils # (0.0-0.6) K/mcL Basophils # (0.0-0.2) K/mcL VBG pH (7.32-7.42) pH Units VBG pCO2 (41-51) mmHg VBG pO2 (25-40) mmHg VBG HCO3 (21-27) mEq/L Sodium (136-145) mEq/L Potassium (3.5-4.5) mEq/L Chloride (98-109) mEq/L Carbon Dioxide (19-29) mEq/L BUN (8-26) mg/dL Creatinine (0.72-1.25) mg/dL Est GFR ( Amer) (> 60) Est GFR (Non-Af Amer) (> 60) BUN/Creatinine Ratio (6-26) Glucose (70-99) mg/dL POC Glucose 235 H (58-89) Calculated Osmolality (280-300) Calcium (8.6-10.8) mg/dL Total Bilirubin (0.2-1.2) mg/dL AST (5-34) Units/L ALT (0-55) Units/L Alkaline Phosphatase (38-126) Units/L Troponin I (0-0.03) ng/mL Serum Total Protein (6.0-8.3) g/dL Albumin (3.5-5.0) g/dL Globulin (2.4-3.5) g/dL Albumin/Globulin Ratio (1.1-2.2) Beta-Hydroxybutyric Acd (0.02-0.27) mmol/L Urine Color Yellow (Yellow) Urine Clarity Clear (Clear) Urine pH 6.0 (5.0-8.0) pH Units Ur Specific [place] > 1.030 H (1.010-1.025) Urine Protein Negative (Neg-Trace) mg/dL Urine Glucose (UA) >=1000 H (Normal) mg/dL Urine Ketones 15 H (Negative) mg/dL Urine Blood Negative (Negative) Urine Nitrite Negative (Negative) Urine Bilirubin Large H (Negative) Urine Urobilinogen Normal (Normal) mg/dL Ur Leukocyte Esterase Negative (Negative) Ur Culture Indicated? NO (NO) - EKG Data EKG attestation: Yes I reviewed and interpreted this EKG. EKG results narrative: Heart rate 10 2 bpm. MD interval 121 ms. QTC 397 ms. Normal axis. Sinus tachycardia. No ST elevation or ST depression noted. EKG sordid appearance to EKG from 03/26/2017. Attestation Statement - Attestation Attestation: I, Yayo Serrato MD, personally evaluated this patient and discussed their management with the resident physician. I reviewed the resident's note and agree with the documented findings, medical decision making, and plan of care. 56-year-old male who is one week status post laparoscopic cholecystectomy and discharged from the hospital 6 days ago. He presents tonight to the emergency department complaining of severe nausea and unable to eat or drink. No actual vomiting. No fever. No diarrhea. No melena, hematemesis, or hematochezia. He does complain of abdominal pain which has been present since the surgery. No increase in the abdominal pain. No abdominal distention. He has been having bowel movements. No difficulty urinating and patient states that he has been urinating a lot. On examination patient is a well-developed well-nourished male in no acute distress. He is alert and oriented 3. There is no cyanosis or diaphoresis. Breath sounds are clear and equal bilaterally. Heart regular rate and rhythm. Abdomen is soft with moderate diffuse tenderness on direct palpation. Bowel sounds present. No tympany or distention. Extremities are nontender with no pedal edema. Labs reviewed. CT of the abdomen and pelvis shows: 1. Postsurgical changes of cholecystectomy with indeterminate fluid collection identified within the gallbladder fossa. A small locule of gas is present within this fluid collection. Findings potentially may be postsurgical, however, sterility is indeterminate on imaging. 2. Moderate amount of free intraperitoneal gas throughout the abdomen. Patient has undergone recent cholecystectomy approximately 1 week prior. While findings potentially could be postsurgical, recommend continued follow-up to exclude the possibility of perforated viscus given the amount of intraperitoneal gas2. No significant free fluid identified in the abdomen. The hospitalist, Dr. Jones, was consulted and accepted admission of the patient.
[2017-03-06 20:06] LABS: Basophils # 0.1 K/mcL (0.0-0.2); Basophils % 0.6 %; Eosinophils # 0.7 K/mcL (0.0-0.6); Eosinophils % 4.3 %; Hemoglobin 13.5 g/dL (12.9-16.9); Immature Granulocytes % 0.9 % (0-4); Lymphocytes # 2.1 K/mcL (0.6-4.6); Lymphocytes % 12.1 %; Mean Corpuscular HGB Conc 31.4 g/dL (31.6-35.5); Mean Corpuscular Hemoglobin 27.7 pg (28.0-33.3); Mean Corpuscular Volume 88.3 fL (83.0-100.0); Monocytes # 1.5 K/mcL (0.0-1.3); Monocytes % 8.3 %; Neutrophils # 12.8 K/mcL (1.6-8.9); Platelet Count 615 K/mcL (140-400); Red Blood Count 4.87 M/mcL (4.19-5.50); Red Cell Distribution Width 13.1 % (11.5-14.5); Segmented Neutrophils % 73.8 %
[2017-03-06 20:12] LABS: VBG PH 7.37 pH Units (7.32-7.42)
[2017-03-06 20:14] LABS: Bilirubin,Urine Large (Negative); Blood,Urine Negative (Negative); Clarity,Urine Clear (Clear); Color,Urine Yellow (Yellow); Glucose,Urine (UA) >=1000 mg/dL (Normal); Ketones,Urine 15 mg/dL (Negative); Leukocyte Esterase,Urine Negative (Negative); Nitrite,Urine Negative (Negative); Protein,Urine Negative (Neg-Trace); Specific Gravity,Urine > 1.030 (1.010-1.025); Urobilinogen,Urine Normal (Normal)
[2017-03-06 20:20] LABS: Alanine Aminotransferase 18 Units/L (0-55); Albumin/Globulin Ratio 0.7 (1.1-2.2); Alkaline Phosphatase 146 Units/L (38-126); Aspartate Amino Transferase 19 Units/L (5-34); BUN/Creatinine Ratio 12 (6-26); Bilirubin,Total 0.4 mg/dL (0.2-1.2); Blood Urea Nitrogen 13 mg/dL (8-26); Calcium 9.8 mg/dL (8.6-10.8); Carbon Dioxide 25 mEq/L (19-29); Chloride 100 mEq/L (98-109); Globulin 4.4 g/dL (2.4-3.5); Glucose 413 mg/dL (70-99); Osmolality,Calculated 306 (280-300); Sodium 139 mEq/L (136-145); Total Protein 7.4 g/dL (6.0-8.3); eGFR For African Americans > 60 (> 60); eGFR For Non-African Americans > 60 (> 60)
[2017-03-06] MEDS ORDERED: *HR* Dextrose 50 % in Water (Syg) 50 ML SYRINGE IVP PRN (21:05)
[2017-03-06] MEDS ORDERED: Insulin Human Regular 100 UNIT in 0.9 % Sodium Chloride 100 ML IVC SCH ×2 (21:15→22:49)
[2017-03-06] MEDS ORDERED: Ondansetron 4 MG/2 ML VIAL IVP PRN (22:30)
[2017-03-06] MEDS ORDERED: 0.9 % Sodium Chloride 1,000 ML IVC SCH (22:30)
--- NOTE | 2017-03-06 22:41 | Internal Med History&Physical ---
Date of Encounter: 03/06/17 Time of Encounter: 22:40 Assessment and Plan (1) Diabetes mellitus with hyperosmolarity without hyperglycemic hyperosmolar nonketotic coma Current visit: Yes Status: Acute Hyperglycemic hyperosmolar state. No evidence of DKA. Will give a few hours of insulin drip until ketosis resolve. Hydration. (2) Abdominal pain Current visit: Yes Status: Acute We have to r/o any operative complication. CT scan performed an emergency room was noncontrasted and shows fluid in the gallbladder fossa. Will consult surgery. He has leukocytosis 17,000 with no bands. He is afebrile. Will get cultures. I would hold off antibiotics for now await surgery recommendations. Keep NPO Qualifiers: Qualified Code(s): R10.9 - Unspecified abdominal pain Internal Medicine - H&P: HPI Chief complaint: abdominal pain, nausea History of present illness: Mr. Slaughter is a 56 year old male with a history of diabetes mellitus, who recently had laparoscopic cholecystectomy a week ago presents to the emergency room today with the main complain of abdominal pain and nausea. Over the past week since discharge from the hospital patient has been feeling nauseous unable to keep food down. He has not been eating or drinking well and was therefore not taking his insulin. He denies any vomiting. He has diffuse abdominal pain mainly in the right upper quadrant. He has been having chills but no fever. He has been passing gas and moving his bowels fine. Denies hematemesis melena or hematochezia. Past Med Surg Social Fam HX - Past Medical History Medical history: CHF, coronary artery disease, CVA, diabetes, hyperlipidemia, hypertension, myocardial infarction, seizures, other Psychiatric history: anxiety, depression - Past Surgical History Surgical History: coronary bypass (CABG), other - Social History Smoking Status: Former smoker Smokeless Tobacco Status: No Alcohol use: none Drug use: none - Family History Father Adopted: No Living Status: Still Living Hx Family Cardiac Disorders: Yes (CABG) Hx Family Endocrine Disorder: Yes Internal Medicine - H&P: Meds Clopidogrel [Plavix] 75 mg PO DAILY 02/04/15 [History] Sertraline [Zoloft] 100 mg PO DAILY 07/31/15 [History] Gabapentin 800 mg PO TID 08/06/16 [History] Nitroglycerin [Nitrostat] 0.4 mg SL Q5M PRN 08/06/16 [History] Simvastatin [Zocor] 40 mg PO HS 08/06/16 [History] Amitriptyline [Elavil] 75 mg PO HS 02/09/17 [History] Aspirin Enteric Coated [Aspirin EC] 81 mg PO DAILY 02/09/17 [History] Dulaglutide [Trulicity] 0.75 mg SQ QWEEK 02/09/17 [History] Fenofibrate Nanocrystallized [Tricor] 145 mg PO DAILY 02/09/17 [History] Insulin ASPART [NovoLOG] 0 unit SQ TIDWM 02/09/17 [History] Insulin Glargine,Hum.rec.anlog [Toujeo Solostar] 60 units SQ DAILY 02/09/17 [ History] Lipase/Protease/Amylase [Baldo Lay 12,000 Units Capsule] 1 each PO AD 02/09/17 [ History] Lipase/Protease/Amylase [Baldo Lay 24,000 Units Capsule] 1 each PO TIDWM [History] Lisinopril 2.5 mg PO DAILY 02/09/17 [History] Metoprolol [Lopressor] 12.5 mg PO BID 02/09/17 [History] Omeprazole [PriLOSEC] 40 mg PO DAILY 02/09/17 [History] Phenytoin ER [Dilantin ER] 100 mg PO TID 02/09/17 [History] Tizanidine HCl 4 mg PO TID PRN 02/09/17 [History] Sucralfate [Carafate] 1 gm PO QIDAC #120 tab 02/21/17 [Rx] Docusate [Colace] 100 mg PO BID #60 capsule 02/28/17 [Rx] OxyCODONE/APAP 10/325 [Percocet 10/325 MG] 1 each PO Q4HR PRN #42 tablet [Rx] 3 Allergy/AdvReac Type Severity Reaction Status Date / Time No Known Allergies Allergy Verified 02/24/17 14:10 All Systems PM: A 10-system review of systems was performed and is negative for pertinent findings except as documented above in the HPI. Review of systems: 10 point review of systems is negative except for HPI - Constitutional Vitals: Temp Pulse Resp BP Pulse Ox 97.7 F 100 19 127/82 96 03/06/17 22:02 03/06/17 22:02 03/06/17 22:02 03/06/17 22:02 03/06/17 22:02 Exam: Gen.: patient is alert oriented times 3 not in distress. Cardiac: normal S1 S2 no additional sounds or murmurs chest: fair air entry. no active wheezing. No crackles or bronchial breathing. abdomen: tenderness in RUQ mainly. no rebound. BS present neuro: no focal deficit Internal Med - H&P Results - Labs CBC & Chem 7: 03/06/17 20:00 03/06/17 20:00
[2017-03-06] MEDS: *HR* Morphine 2 MG/ML SYRINGE IVP PRN (23:07)
[2017-03-06] MEDS: D5% in 0.9% NACL 1,000 ML IVC SCH (23:33)
[2017-03-07] MEDS: *HR* Morphine 2 MG/ML SYRINGE IVP PRN ×3 (02:05→13:55)
[2017-03-07 02:10] LABS: Basophils # 0.1 K/mcL (0.0-0.2); Basophils % 0.4 %; Eosinophils # 0.9 K/mcL (0.0-0.6); Hematocrit 38.1 % (37.5-50.1); Hemoglobin 12.4 g/dL (12.9-16.9); Immature Granulocytes % 0.9 % (0-4); Lymphocytes # 2.9 K/mcL (0.6-4.6); Lymphocytes % 15.7 %; Mean Corpuscular HGB Conc 32.5 g/dL (31.6-35.5); Mean Platelet Volume 10.2 fL (9.4-12.4); Monocytes # 2.1 K/mcL (0.0-1.3); Monocytes % 11.2 %; Neutrophils # 12.3 K/mcL (1.6-8.9); Platelet Count 574 K/mcL (140-400); Red Blood Count 4.28 M/mcL (4.19-5.50); Red Cell Distribution Width 13.1 % (11.5-14.5); Segmented Neutrophils % 66.8 %
[2017-03-07 02:28] LABS: BUN/Creatinine Ratio 12 (6-26); Blood Urea Nitrogen 10 mg/dL (8-26); C-Reactive Protein 94 mg/L (Less than 5); Carbon Dioxide 26 mEq/L (19-29); Chloride 107 mEq/L (98-109); Glucose 72 mg/dL (70-99); Magnesium 1.3 mg/dL (1.6-2.6); Osmolality,Calculated 296 (280-300); Potassium 3.7 mEq/L (3.5-4.5); Sodium 144 mEq/L (136-145); eGFR For African Americans > 60 (> 60); eGFR For Non-African Americans > 60 (> 60)
[2017-03-07] MEDS ORDERED: Magnesium Sulfate 2 GM in D5% in Water 100 ML IVPB ONE (02:56)
[2017-03-07] MEDS ORDERED: D5% in Water 1,000 ML IVC PRN ×2 (02:58→10:25)
[2017-03-07] MEDS ORDERED: *HR* Dextrose 50 % in Water (Syg) 50 ML SYRINGE IVP PRN ×2 (02:58→10:25)
[2017-03-07] MEDS ORDERED: Dextrose Gel 15 GM PO PRN ×4 (02:58→10:25)
[2017-03-07] MEDS: Piperacillin/Tazobactam 3.375 GM in D5% in Water (Mini-Bag+) 100 ML IVPB SCH ×3 (03:06→15:37)
[2017-03-07 03:15] LABS: Beta-Hydroxybutyric Acid 0.75 mmol/L (0.02-0.27)
[2017-03-07] MEDS: D5% in 0.9% NACL 1,000 ML IVC SCH ×3 (05:34→20:31)
[2017-03-07] MEDS: Insulin LISPRO 300 UNITS/3 ML VIAL SQ SCH ×4 (05:34→15:55)
[2017-03-07] MEDS: *HR* Heparin 5,000 UNIT/ML VIAL SQ SCH ×2 (05:35→15:39)
--- NOTE | 2017-03-07 08:02 | Event Note ---
Date of Encounter: 03/07/17 Time of Encounter: 07:25 The patient is seen and evaluated on morning rounds. He has previously had ERCP with stent placement for common bile duct stones followed by laparoscopic cholecystectomy. He was doing well and was discharged from the hospital. That evening he developed nausea. He was unable to eat or drink very well during the week. He came in complaining of right upper quadrant pain. White blood cell count was elevated at 17,000. His liver function tests were normal. CAT scan of the abdomen demonstrated a very small postoperative fluid collection in the gallbladder fossa. There is no ascites. No evidence of bile leak. On physical examination the incisions are healing normally and he is tender in the right upper quadrant. My initial impression is a sending cholangitis that will be adequately treated with IV antibiotics. There does not appear to be any fluid collection that requires draining. He is already had ERCP and stent placement. I will Be glad to follow along with you. There is no indication for immediate surgery.
[2017-03-07] MEDS ORDERED: Pantoprazole 40 MG VIAL IVP SCH (09:00)
[2017-03-07] MEDS: Insulin DETEMIR 100 UNIT/ML X5UNITS SQ SCH (09:48)
--- NOTE | 2017-03-07 11:41 | General Surgery Consult Note ---
<Krysta Phillip - Last Filed: 03/07/17 12:01> Date of Encounter: 03/07/17 Time of Encounter: 06:50 Assessment and Plan (1) Abdominal pain Current Visit: No Status: Acute Most likely secondary to ascending cholangitis. Patient is diffusely tender especially in the RUQ. CT scan showed very small postoperative fluid collection in the gallbladder fossa, no ascites, or bile leak. WBC is elevated from previous visit 02/27 WBC = 15.5. Patient has been afebrile since arrival and vitals have been stable. Patient should continue with IV antibiotic therapy. No need for surgical intervention at this time. Patient mentioned BM are darker but hemoglobin has been stable since last week. Will continue to monitor H/H. Plan: - Antibiotics: Zosyn - Pain control: morphine 2mg IV Q3h - serial abdominal exams Qualifiers: Abdominal location: left upper quadrant Qualified Code(s): R10.12 - Left upper quadrant pain (2) DM2 (diabetes mellitus, type 2) Current Visit: No Status: Chronic Initial glucose in the 400s. Patients most recent BG 169, 302, 144. Patient currently Levemir 30 units daily and high dose sliding scale. DM managed by primary team. Qualifiers: Diabetes mellitus complication status: with hyperglycemia Diabetes mellitus termite helper insulin use: with group home use Qualified Code(s): E11.65 - Type 2 diabetes mellitus with hyperglycemia; Z79.4 - [facility]FP (current) use of insulin History of Present Illness Consult date: 03/07/17 Requesting physician: Rolando Heller History of present illness: Patient is a 56-year-old male with a recent diagnosis of gallstone pancreatitis and choledocholithiasis last week who underwent an ERCP with stent placement for common bile duct stones and sphincterotomy (02/26/17) followed by laparoscopic cholecystectomy on 02/27/17 presented to the ED with worsening RUQ pain and nausea and found to have ascending cholangitis. Patient presented with RUQ pain, nausea without vomiting, and no appetite since coming home from the hospital. RUQ pain worsened over the week and patient's BM darkened in color. CT of abdomen don in the Ed showed very small postoperative fluid collection in the gallbladder fossa with no evidence of asites or bile leak. Patient has a past medical history of DM, Stroke, CAD with CABG,and peripheral vascular disease. Past surgical hx of CABD, exploratory laparotomy. Past Med Surg Social Fam HX - Past Medical History Medical history: CHF, coronary artery disease, CVA, diabetes, hyperlipidemia, hypertension, myocardial infarction, seizures, other Psychiatric history: anxiety, depression - Past Surgical History Surgical History: cholecystectomy (laproscopic ), coronary bypass (CABG), other (Exploratory laparotomy for bowel obstruction in the remote past, upper midline incision, ERCP with stent placement) - Social History Smoking Status: Former smoker Smokeless Tobacco Status: No Alcohol use: none Drug use: none - Family History Father Adopted: No Living Status: Still Living Hx Family Cardiac Disorders: Yes (CABG) Hx Family Endocrine Disorder: Yes Medications and Allergies Clopidogrel [Plavix] 75 mg PO DAILY 02/04/15 [History] Sertraline [Zoloft] 100 mg PO DAILY 07/31/15 [History] Gabapentin 800 mg PO TID 08/06/16 [History] Nitroglycerin [Nitrostat] 0.4 mg SL Q5M PRN 08/06/16 [History] Simvastatin [Zocor] 40 mg PO HS 08/06/16 [History] Amitriptyline [Elavil] 75 mg PO HS 02/09/17 [History] Aspirin Enteric Coated [Aspirin EC] 81 mg PO DAILY 02/09/17 [History] Fenofibrate Nanocrystallized [Tricor] 145 mg PO DAILY 02/09/17 [History] Insulin ASPART [NovoLOG] 0 unit SQ TIDWM 02/09/17 [History] Insulin Glargine,Hum.rec.anlog [Toujeo Solostar] 60 units SQ DAILY 02/09/17 [ History] Lipase/Protease/Amylase [Baldo Lay 12,000 Units Capsule] 1 each PO AD 02/09/17 [ History] Lipase/Protease/Amylase [Baldo Lay 24,000 Units Capsule] 1 each PO TIDWM [History] Lisinopril 2.5 mg PO DAILY 02/09/17 [History] Metoprolol [Lopressor] 12.5 mg PO BID 02/09/17 [History] Omeprazole [PriLOSEC] 40 mg PO DAILY 02/09/17 [History] Phenytoin ER [Dilantin ER] 100 mg PO TID 02/09/17 [History] Tizanidine HCl 4 mg PO TID PRN 02/09/17 [History] Sucralfate [Carafate] 1 gm PO QIDAC #120 tab 02/21/17 [Rx] Docusate [Colace] 100 mg PO BID #60 capsule 02/28/17 [Rx] OxyCODONE/APAP 10/325 [Percocet 10/325 MG] 1 each PO Q4HR PRN #42 tablet [Rx] 3 Allergy/AdvReac Type Severity Reaction Status Date / Time No Known Allergies Allergy Verified 02/24/17 14:10 Review of Systems All systems PM: A 10-system review of systems was performed and is negative for pertinent findings except as documented above in the HPI. General Surgery Exam Initial Vital Signs Temp Pulse Resp BP Pulse Ox 98.7 F 111 20 126/80 95 03/06/17 19:42 03/06/17 19:42 03/06/17 19:42 03/06/17 19:42 03/06/17 19:42 - Additional Findings Constitutional: Alert, in no acute distress, well nourished, well developed. Head: Normocephalic, atraumatic, normal contour and symmetric, no masses, lesions or scars Heart: Normal, regular rate and rhythm, no murmurs Lungs: Clear to auscultation, no wheezes, rales, or rhonchi Abdomen: abdomen is diffusely tender especially in the RUQ, incisions are well approximated and healing well without signs of infection, no fluid wave, Soft, nondistended, and no masses palpable, bowel sounds present and normal, no guarding or rigidity. Extremities: No clubbing, cyanosis, or edema, radial pulse +2/4, capillary refill <2sec. Skin: Skin warm and dry, no lesions, no rashes, no jaundice Neurologic: Cranial nerves II through XII grossly intact, no focal deficits, strength within normal limits in all extremities Psych: Cooperative with exam, good eye contact, cognitive function intact, judgment good insight good, speech clear, thought process logical, and goal directed Exam Initial Vital Signs Temp Pulse Resp BP Pulse Ox 98.7 F 111 20 126/80 95 03/06/17 19:42 03/06/17 19:42 03/06/17 19:42 03/06/17 19:42 03/06/17 19:42 Results - Labs 03/07/17 01:18 03/07/17 01:18 Abnormal lab results WBC 18.3 K/mcL (4.3-11.1) H 03/07/17 01:18 Hgb 12.4 g/dL (12.9-16.9) L 03/07/17 01:18 Plt Count 574 K/mcL (140-400) H 03/07/17 01:18 Neutrophils # 12.3 K/mcL (1.6-8.9) H 03/07/17 01:18 Monocytes # 2.1 K/mcL (0.0-1.3) H 03/07/17 01:18 Eosinophils # 0.9 K/mcL (0.0-0.6) H 03/07/17 01:18 VBG pCO2 52 mmHg (41-51) H 03/06/17 20:00 VBG HCO3 30 mEq/L (21-27) H 03/06/17 20:00 POC Glucose 124 (58-89) H 03/07/17 02:10 Magnesium 1.3 mg/dL (1.6-2.6) L 03/07/17 01:18 Alkaline Phosphatase 146 Units/L (38-126) H 03/06/17 20:00 C-Reactive Protein 94 mg/L (Less than 5) H 03/07/17 01:18 Albumin 3.0 g/dL (3.5-5.0) L 03/06/17 20:00 Globulin 4.4 g/dL (2.4-3.5) H 03/06/17 20:00 Albumin/Globulin Ratio 0.7 (1.1-2.2) L 03/06/17 20:00 Beta-Hydroxybutyric Acd 0.75 mmol/L (0.02-0.27) H 03/07/17 01:18 Ur Specific Blum > 1.030 (1.010-1.025) H 03/06/17 20:08 Urine Glucose (UA) >=1000 mg/dL (Normal) H 03/06/17 20:08 Urine Ketones 15 mg/dL (Negative) H 03/06/17 20:08 Urine Bilirubin Large (Negative) H 03/06/17 20:08 Diabetes panel 03/07/17 Range/Units 01:18 Sodium 144 (136-145) mEq/L Potassium 3.7 (3.5-4.5) mEq/L Chloride 107 (98-109) mEq/L Carbon Dioxide 26 (19-29) mEq/L BUN 10 (8-26) mg/dL Creatinine 0.81 (0.72-1.25) mg/dL Glucose 72 (70-99) mg/dL Calcium 9.0 (8.6-10.8) mg/dL Calcium panel 03/07/17 Range/Units 01:18 Calcium 9.0 (8.6-10.8) mg/dL Pituitary panel 03/07/17 Range/Units 01:18 Sodium 144 (136-145) mEq/L Potassium 3.7 (3.5-4.5) mEq/L Chloride 107 (98-109) mEq/L Carbon Dioxide 26 (19-29) mEq/L BUN 10 (8-26) mg/dL Creatinine 0.81 (0.72-1.25) mg/dL Glucose 72 (70-99) mg/dL Calcium 9.0 (8.6-10.8) mg/dL Adrenal panel 03/07/17 Range/Units 01:18 Sodium 144 (136-145) mEq/L Potassium 3.7 (3.5-4.5) mEq/L Chloride 107 (98-109) mEq/L Carbon Dioxide 26 (19-29) mEq/L BUN 10 (8-26) mg/dL Creatinine 0.81 (0.72-1.25) mg/dL Glucose 72 (70-99) mg/dL Calcium 9.0 (8.6-10.8) mg/dL All other labs normal. - Imaging CT scan - abdomen: report reviewed, image reviewed Consult Discharge Plan - Plan Referrals: Rosanna Espinosa CNP [Advanced Practice Nurse] - 03/15/17 11:00 am (YOUR APPOINTMENT FOR 10-4 @ 1100 HAS BEEN CANCELED) <Mikal Winston - Last Filed: 03/08/17 08:06> Date of Encounter: 03/08/17 Review of Systems All systems PM: A 10-system review of systems was performed and is negative for pertinent findings except as documented above in the HPI. General Surgery Exam Initial Vital Signs Temp Pulse Resp BP Pulse Ox 98.7 F 111 20 126/80 95 03/06/17 19:42 03/06/17 19:42 03/06/17 19:42 03/06/17 19:42 03/06/17 19:42 Exam Initial Vital Signs Temp Pulse Resp BP Pulse Ox 98.7 F 111 20 126/80 95 03/06/17 19:42 03/06/17 19:42 03/06/17 19:42 03/06/17 19:42 03/06/17 19:42 Results - Labs 03/08/17 05:01 03/08/17 05:01 Abnormal lab results WBC 15.0 K/mcL (4.3-11.1) H 03/08/17 05:01 RBC 4.03 M/mcL (4.19-5.50) L 03/08/17 05:01 Hgb 11.1 g/dL (12.9-16.9) L 03/08/17 05:01 Hct 35.4 % (37.5-50.1) L 03/08/17 05:01 MCH 27.5 pg (28.0-33.3) L 03/08/17 05:01 MCHC 31.4 g/dL (31.6-35.5) L 03/08/17 05:01 Plt Count 559 K/mcL (140-400) H 03/08/17 05:01 Neutrophils # 10.0 K/mcL (1.6-8.9) H 03/08/17 05:01 Monocytes # 1.8 K/mcL (0.0-1.3) H 03/08/17 05:01 Eosinophils # 0.9 K/mcL (0.0-0.6) H 03/08/17 05:01 VBG pCO2 52 mmHg (41-51) H 03/06/17 20:00 VBG HCO3 30 mEq/L (21-27) H 03/06/17 20:00 BUN 7 mg/dL (8-26) L 03/08/17 05:01 Glucose 285 mg/dL (70-99) H 03/08/17 05:01 POC Glucose 142 (58-89) H 03/07/17 20:08 Magnesium 1.3 mg/dL (1.6-2.6) L 03/07/17 01:18 Alkaline Phosphatase 146 Units/L (38-126) H 03/06/17 20:00 C-Reactive Protein 94 mg/L (Less than 5) H 03/07/17 01:18 Albumin 3.0 g/dL (3.5-5.0) L 03/06/17 20:00 Globulin 4.4 g/dL (2.4-3.5) H 03/06/17 20:00 Albumin/Globulin Ratio 0.7 (1.1-2.2) L 03/06/17 20:00 Beta-Hydroxybutyric Acd 0.75 mmol/L (0.02-0.27) H 03/07/17 01:18 Ur Specific Blum > 1.030 (1.010-1.025) H 03/06/17 20:08 Urine Glucose (UA) >=1000 mg/dL (Normal) H 03/06/17 20:08 Urine Ketones 15 mg/dL (Negative) H 03/06/17 20:08 Urine Bilirubin Large (Negative) H 03/06/17 20:08 Diabetes panel 03/08/17 Range/Units 05:01 Sodium 139 (136-145) mEq/L Potassium 4.1 (3.5-4.5) mEq/L Chloride 108 (98-109) mEq/L Carbon Dioxide 25 (19-29) mEq/L BUN 7 L (8-26) mg/dL Creatinine 0.84 (0.72-1.25) mg/dL Glucose 285 H (70-99) mg/dL Calcium 9.0 (8.6-10.8) mg/dL Calcium panel 03/08/17 Range/Units 05:01 Calcium 9.0 (8.6-10.8) mg/dL Pituitary panel 03/08/17 Range/Units 05:01 Sodium 139 (136-145) mEq/L Potassium 4.1 (3.5-4.5) mEq/L Chloride 108 (98-109) mEq/L Carbon Dioxide 25 (19-29) mEq/L BUN 7 L (8-26) mg/dL Creatinine 0.84 (0.72-1.25) mg/dL Glucose 285 H (70-99) mg/dL Calcium 9.0 (8.6-10.8) mg/dL Adrenal panel 03/08/17 Range/Units 05:01 Sodium 139 (136-145) mEq/L Potassium 4.1 (3.5-4.5) mEq/L Chloride 108 (98-109) mEq/L Carbon Dioxide 25 (19-29) mEq/L BUN 7 L (8-26) mg/dL Creatinine 0.84 (0.72-1.25) mg/dL Glucose 285 H (70-99) mg/dL Calcium 9.0 (8.6-10.8) mg/dL All other labs normal. - Attending Attestation I examined this patient and my medical decision-making was reviewed with the Resident Physician. I agree with the documented findings, disposition and treatment plan as described except to the extent set forth below. The patient is seen and evaluated. A personal physician examination reviewed radiologic findings. The patient is examined with the resident and I shared clinical information with the resident. He has no evidence of fluid accumulation or abscess. Bowel function appears to be within normal limits. His white count is mildly elevated. He has had sphincterotomy and has a common bile duct stent in place. Clinically he appears to have ascending cholangitis and I think that antibiotic therapy is appropriate. Mikal Winston MD FACS
--- NOTE | 2017-03-07 17:14 | Electrocardiograph Report ---
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
--- NOTE | 2017-03-07 17:17 | Electrocardiograph Report ---
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
--- NOTE | 2017-03-07 18:41 | Internal Med Progress Note ---
Date of Encounter: 03/08/17 Time of Encounter: 13:00 - Assessment and plan (1) Diabetes mellitus with hyperosmolarity without hyperglycemic hyperosmolar nonketotic coma Current Visit: Yes Status: Acute Assessment and plan: Has improved and should be okay to eat meal. At that time will give basal insulin, keep insulin drip on until one hour after meal (2) Ascending cholangitis Current Visit: Yes Status: Acute Assessment and plan: management per surgery team. On Zosyn and morphine prn pain (3) Hx laparoscopic cholecystectomy Current Visit: Yes Status: Acute - Subjective Interval history: Patient has complaints of upper abdominal pain, slightly better. He denies any fevers/chills, still has some nausea. - Constitutional Vitals: Temp Pulse Resp BP Pulse Ox 97.9 F 90 17 105/55 97 03/07/17 18:36 03/07/17 18:36 03/07/17 18:36 03/07/17 18:36 03/07/17 18:36 Exam: Gen: NAD, AAOx3 CVS: RRR, no mrg Lungs: CTAB Abd: normoactive bs, soft, non-distended. +epigastric tenderness, no rebound rigidity Ext: no edema Internal Medicine: Result - Labs CBC & Chem 7: 03/07/17 01:18 03/07/17 01:18 Labs: Short CBC 03/07/17 Range/Units 01:18 WBC 18.3 H (4.3-11.1) K/mcL Hgb 12.4 L (12.9-16.9) g/dL Hct 38.1 (37.5-50.1) % Plt Count 574 H (140-400) K/mcL Neutrophils # 12.3 H (1.6-8.9) K/mcL BMP 03/07/17 01:18 Sodium 144 Potassium 3.7 Chloride 107 Carbon Dioxide 26 BUN 10 Creatinine 0.81 Glucose 72 Calcium 9.0 - VTE Documentation of Mechanical Device: Intermittent pneumatic compression device Consult Discharge Plan - Plan Referrals: Rosanna Espinosa CNP [Advanced Practice Nurse] - 03/15/17 11:00 am (YOUR APPOINTMENT FOR - @ 1100 HAS BEEN CANCELED)
[2017-03-07] MEDS ORDERED: Insulin LISPRO 300 UNITS/3 ML VIAL SQ SCH (21:00)
[2017-03-08] MEDS: Piperacillin/Tazobactam 3.375 GM in D5% in Water (Mini-Bag+) 100 ML IVPB SCH ×2 (02:48→11:15)
[2017-03-08] MEDS: *HR* Heparin 5,000 UNIT/ML VIAL SQ SCH (05:22)
[2017-03-08 05:28] LABS: Basophils # 0.1 K/mcL (0.0-0.2); Basophils % 0.5 %; Eosinophils # 0.9 K/mcL (0.0-0.6); Eosinophils % 6.3 %; Hematocrit 35.4 % (37.5-50.1); Hemoglobin 11.1 g/dL (12.9-16.9); Immature Granulocytes % 1.5 % (0-4); Lymphocytes # 2.1 K/mcL (0.6-4.6); Lymphocytes % 13.8 %; Mean Corpuscular HGB Conc 31.4 g/dL (31.6-35.5); Mean Corpuscular Hemoglobin 27.5 pg (28.0-33.3); Mean Corpuscular Volume 87.8 fL (83.0-100.0); Mean Platelet Volume 10.2 fL (9.4-12.4); Monocytes # 1.8 K/mcL (0.0-1.3); Monocytes % 11.7 %; Platelet Count 559 K/mcL (140-400); Red Blood Count 4.03 M/mcL (4.19-5.50); Red Cell Distribution Width 13.2 % (11.5-14.5); Segmented Neutrophils % 66.2 %
[2017-03-08 05:55] LABS: BUN/Creatinine Ratio 8 (6-26); Blood Urea Nitrogen 7 mg/dL (8-26); Carbon Dioxide 25 mEq/L (19-29); Chloride 108 mEq/L (98-109); Glucose 285 mg/dL (70-99); Osmolality,Calculated 296 (280-300); Potassium 4.1 mEq/L (3.5-4.5); Sodium 139 mEq/L (136-145); eGFR For African Americans > 60 (> 60); eGFR For Non-African Americans > 60 (> 60)
[2017-03-08] MEDS: Insulin DETEMIR 100 UNIT/ML X5UNITS SQ SCH (08:30)
[2017-03-08] MEDS: Insulin LISPRO 300 UNITS/3 ML VIAL SQ SCH ×2 (08:38→11:34)
[2017-03-08 11:07] VITALS: BP 119/73
--- NOTE | 2017-03-08 11:47 | General Surgery Progress Note ---
<Danna Westfall Barbie - Last Filed: 03/08/17 11:49> Date of Encounter: 03/08/17 Time of Encounter: 11:45 - Assessment and Plan (1) Ascending cholangitis Status: Acute May transition to PO antibiotics when medically stable for discharge Supportive care and pain control Diabetic diet See surgery instructions for discharge orders (2) Abdominal pain Status: Acute Qualifiers: Abdominal location: right upper quadrant Qualified Code(s): R10.11 - Right upper quadrant pain Subjective Patient reports: no new complaints, feels better, still having pain, pain is less, tolerating a regular diet, voiding w/o difficulty, flatus, no bowel movement, afebrile Objective Vital Signs - Last 8 Hours Temp Pulse Resp BP Pulse Ox 03/08/17 11:24 75 03/08/17 11:04 98.3 F 74 18 119/73 97 03/08/17 08:30 82 03/08/17 07:47 99.0 F 83 14 105/59 98 Intake and Output 03/07/17 03/08/17 03/08/17 23:59 07:59 15:59 Intake Total 340 / 340 100 / 100 Output Total 180 / 180 700 / 700 275 / 275 Balance 160 / 160 -600 / -600 -275 / -275 Intake: IV Fluids 100 / 100 100 / 100 Zosyn 3.375 GM In Dextrose 5% ( 100 / 100 100 / 100 Minibag+) 100 ML 100 ML @ 25 mls/hr IVPB Q8H [facility] Rx#: [id number] Oral 240 / 240 Output: Urine 180 / 180 700 / 700 275 / 275 Other: Meal Dinner Percent of Meal Consumed 100% Weight 76.3 kg Blood Glucose* 142 234 179 Patient Weight 03/08/17 23:59 Weight 76.3 kg - General physical appearance well developed, well nourished, no distress, moderate pain - Eyes normal ocular movement - ENT normal mucosa, atraumatic, normocephalic - Neck Neck exam: trachea midline - Respiratory normal respiratory effort, clear to auscultation - Cardiovascular Cardiovascular exam: Present: RRR - Abdomen Abdomen: Present: bowel sounds present, soft, tender Abdominal Tenderness: RUQ - Incision Incision: Present: clean and dry, intact - Neurologic CN 2-12 grossly intact - Psychiatric oriented to time, oriented to person, oriented to place, speech is normal, memory intact - Labs 03/08/17 05:01 03/08/17 05:01 Diabetes panel 03/08/17 Range/Units 05:01 Sodium 139 (136-145) mEq/L Potassium 4.1 (3.5-4.5) mEq/L Chloride 108 (98-109) mEq/L Carbon Dioxide 25 (19-29) mEq/L BUN 7 L (8-26) mg/dL Creatinine 0.84 (0.72-1.25) mg/dL Glucose 285 H (70-99) mg/dL Calcium 9.0 (8.6-10.8) mg/dL Calcium panel 03/08/17 Range/Units 05:01 Calcium 9.0 (8.6-10.8) mg/dL Pituitary panel 03/08/17 Range/Units 05:01 Sodium 139 (136-145) mEq/L Potassium 4.1 (3.5-4.5) mEq/L Chloride 108 (98-109) mEq/L Carbon Dioxide 25 (19-29) mEq/L BUN 7 L (8-26) mg/dL Creatinine 0.84 (0.72-1.25) mg/dL Glucose 285 H (70-99) mg/dL Calcium 9.0 (8.6-10.8) mg/dL Adrenal panel 03/08/17 Range/Units 05:01 Sodium 139 (136-145) mEq/L Potassium 4.1 (3.5-4.5) mEq/L Chloride 108 (98-109) mEq/L Carbon Dioxide 25 (19-29) mEq/L BUN 7 L (8-26) mg/dL Creatinine 0.84 (0.72-1.25) mg/dL Glucose 285 H (70-99) mg/dL Calcium 9.0 (8.6-10.8) mg/dL - VTE Documentation of Mechanical Device: Intermittent pneumatic compression device Consult Discharge Plan - Plan Instructions: Amoxicillin/Clavulanate Potassium (By mouth), Diabetes Mellitus Type 2 in Adults (DC) Additional Instructions: #1 may shower, no tub bath for 2 weeks #2 wash incisions with soap and water and pat dry daily #3 no lifting, pushing, pulling more than 15 pounds for the next 2 weeks #4 no driving until off narcotics for 24 hours and able to safely react in the car #5 may climb stairs Referrals: Rosanna Espinosa CNP [Advanced Practice Nurse] - 03/15/17 11:00 am (YOUR APPOINTMENT FOR -4 @ 1100 HAS BEEN CANCELED) Mikal Winston MD [Partnered Physician] - 03/18/17 2:45 pm (surgery follow-up; [place] office) Prescriptions: Amoxicillin/Clavulanate [Augmentin] 875 mg PO BIDWM #20 tablet - Attending Attestation For this encounter, I have reviewed the SOLAR SALES ESTIMATOR or PA documentation, treatment plan, and medical decision making; and I have had face to face time with this patient. <Mikal Winston - Last Filed: 03/09/17 07:35> Date of Encounter: 03/08/17 Objective Intake and Output 03/08/17 03/08/17 03/09/17 15:59 23:59 07:59 Output Total 275 / 275 Balance -275 / -275 Output: Urine 275 / 275 Other: Blood Glucose* 179 - Labs 03/08/17 05:01 03/08/17 05:01 - Attending Attestation The patient is seen and evaluated on morning rounds. His abdominal examination is completely negative and we can advance his diet. There is no evidence of bile leak. Mikal Winston MD FACS
--- NOTE | 2017-03-08 13:08 | Discharge Summary ---
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 transplanted heart: [place] heart Associated angina: without angina Qualified Code(s): I25.810 - Atherosclerosis of coronary artery bypass graft(s) without angina pectoris (4) PVD (peripheral vascular disease) Priority: Secondary Status: Chronic (5) HLD (hyperlipidemia) Priority: Secondary Status: Chronic Qualifiers: Hyperlipidemia type: mixed hyperlipidemia Qualified Code(s): E78.2 - Mixed hyperlipidemia (6) CVA (cerebral vascular accident) Priority: Secondary Status: Chronic Qualifiers: CVA mechanism: unspecified Qualified Code(s): I63.9 - Cerebral infarction, unspecified - Discharge Medications Prescriptions: Amoxicillin/Clavulanate [Augmentin] 875 mg PO BIDWM #20 tablet Home Medications: Clopidogrel [Plavix] 75 mg PO DAILY 02/04/15 [History] Sertraline [Zoloft] 100 mg PO DAILY 07/31/15 [History] Gabapentin 800 mg PO TID 08/06/16 [History] Nitroglycerin [Nitrostat] 0.4 mg SL Q5M PRN 08/06/16 [History] Simvastatin [Zocor] 40 mg PO HS 08/06/16 [History] Amitriptyline [Elavil] 75 mg PO HS 02/09/17 [History] Aspirin Enteric Coated [Aspirin EC] 81 mg PO DAILY 02/09/17 [History] Fenofibrate Nanocrystallized [Tricor] 145 mg PO DAILY 02/09/17 [History] Insulin ASPART [NovoLOG] 0 unit SQ TIDWM 02/09/17 [History] Insulin Glargine,Hum.rec.anlog [Phyllis Espinosa] 60 units SQ DAILY 02/09/17 [ History] Lipase/Protease/Amylase [Creon Dr 12,000 Units Capsule] 1 each PO AD 02/09/17 [ History] Lipase/Protease/Amylase [Baldo Lay 24,000 Units Capsule] 1 each PO TIDWM [History] Lisinopril 2.5 mg PO DAILY 02/09/17 [History] Metoprolol [Lopressor] 12.5 mg PO BID 02/09/17 [History] Omeprazole [PriLOSEC] 40 mg PO DAILY 02/09/17 [History] Phenytoin ER [Dilantin ER] 100 mg PO TID 02/09/17 [History] Tizanidine HCl 4 mg PO TID PRN 02/09/17 [History] Sucralfate [Carafate] 1 gm PO QIDAC #120 tab 02/21/17 [Rx] Docusate [Colace] 100 mg PO BID #60 capsule 02/28/17 [Rx] OxyCODONE/APAP 10/325 [Percocet 10/325 MG] 1 each PO Q4HR PRN #42 tablet [Rx] Amoxicillin/Clavulanate [Augmentin] 875 mg PO BIDWM #20 tablet 03/08/17 [Rx] Allergies/Adverse Reactions: 3 Allergy/AdvReac Type Severity Reaction Status Date / Time No Known Allergies Allergy Verified 02/24/17 14:10 Procedures/tests Complete & Pending: Procedures Performed prior 72 hours Category Date Time Status ECG 12 lead ECG [ECG] Routine Y 03/07/17 01:21 Completed Date of admission: 03/06/17 22:22 Primary care physician: Suleman Fonseca MD Consults: 03/06/17 22:28 Consult to Surgery [CONS] Routine Consulting Provider: Surgery [facility] Reason for Consult: abdominal pain, s/p laparoscopic cholecystectomy 1 week ago Call Completed: No Discharging clinician: Susanne Lim Anticipated date of discharge: 03/08/17 - Patient Status Disposition: Home Health Service Condition: Fair Functional capacity at discharge: wheelchair bound Overall status at discharge: patient is progressing back to baseline - Discharge Instructions Instructions: Amoxicillin/Clavulanate Potassium (By mouth), Diabetes Mellitus Type 2 in Adults (DC) Follow Up With: Mikal Winston MD [Partnered Physician] - 03/18/17 2:45 pm (surgery follow-up; [place] office) Rosanna Espinosa CNP [Advanced Practice Nurse] - 03/15/17 11:00 am (YOUR APPOINTMENT FOR 03-09 @ 1100 HAS BEEN CANCELED) Additional Instructions: #1 may shower, no tub bath for 2 weeks #2 wash incisions with soap and water and pat dry daily #3 no lifting, pushing, pulling more than 15 pounds for the next 2 weeks #4 no driving until off narcotics for 24 hours and able to safely react in the car #5 may climb stairs - Diet and Activity Activity: as per physical therapy Diet: diabetic diet, low fat, low cholesterol, low salt diet Hospital course: Mr. Slaughter is a 56 year old male with the above medical problems, recently discharged after undergoing ERCP with biliary stent placement and laparoscopic cholecystectomy, was readmitted with abdominal pain and nausea. He was noted to have leukocytosis with normal liver enzymes and bilirubin. He was given supportive care with pain control and antiemetics and started on IV antibiotics- Zosyn. He was evaluated by surgery, who recommended no further intervention as CT abdomen showed no evidence of fluid collection or abscess in the gallbladder fossa. Patient is currently able to tolerate oral diet and is anxious to be discharged today. He is being discharged on oral antibiotics with surgery follow-up as an outpatient. - Time Spent with Patient Total time spent providing and/or coordinating discharge services: Greater than 30 minutes (45 min) - Constitutional Vitals: Temp Pulse Resp BP Pulse Ox 98.3 F 75 18 119/73 97 03/08/17 11:04 03/08/17 11:24 03/08/17 11:04 03/08/17 11:04 03/08/17 11:04 General appearance: Present: A&O X 3 - GI/Abdominal GI/Abdominal exam: Present: normal bowel sounds, soft, no peritoneal signs. Absent: distended, tenderness - VTE Documentation of Mechanical Device: Intermittent pneumatic compression device
--- NOTE | 2017-03-08 13:16 | Physician Discharge Referral ---
Home Health/Hosp Referral Info Transfer to: Home Health Attending Provider: Susanne Lim Provider in Charge Post Discharge: PCP - Diagnosis (1) Ascending cholangitis Priority: Primary Status: Acute (2) DM2 (diabetes mellitus, type 2) Priority: Secondary Status: Chronic (3) CAD (coronary artery disease) Priority: Secondary Status: Chronic (4) PVD (peripheral vascular disease) Priority: Secondary Status: Chronic (5) HLD (hyperlipidemia) Priority: Secondary Status: Chronic (6) CVA (cerebral vascular accident) Priority: Secondary Status: Chronic - Respiratory Orders Smoking Cessation: Smoking cessation has been advised. For more information, call the [place] Tobacco Quit Line at 3-186-GOAN-NOW. - Diet/Nutrition Diet/Nutrition Orders: Cardiac, No Concentrated Sweets (diabetic) - Activity Activity Orders: Chair - Services Needed Following services are medically necessary services: Nursing, Home Health Aide, Physical Therapy, Occupational Therapy - Transfer Medications Prescriptions: Amoxicillin/Clavulanate [Augmentin] 875 mg PO BIDWM #20 tablet Home Medications: Clopidogrel [Plavix] 75 mg PO DAILY 02/04/15 [History] Sertraline [Zoloft] 100 mg PO DAILY 07/31/15 [History] Gabapentin 800 mg PO TID 08/06/16 [History] Nitroglycerin [Nitrostat] 0.4 mg SL Q5M PRN 08/06/16 [History] Simvastatin [Zocor] 40 mg PO HS 08/06/16 [History] Amitriptyline [Elavil] 75 mg PO HS 02/09/17 [History] Aspirin Enteric Coated [Aspirin EC] 81 mg PO DAILY 02/09/17 [History] Fenofibrate Nanocrystallized [Tricor] 145 mg PO DAILY 02/09/17 [History] Insulin ASPART [NovoLOG] 0 unit SQ TIDWM 02/09/17 [History] Insulin Glargine,Hum.rec.anlog [Toujeo Solostar] 60 units SQ DAILY 02/09/17 [ History] Lipase/Protease/Amylase [Baldo Lay 12,000 Units Capsule] 1 each PO AD 02/09/17 [ History] Lipase/Protease/Amylase [Baldo Lay 24,000 Units Capsule] 1 each PO TIDWM [History] Lisinopril 2.5 mg PO DAILY 02/09/17 [History] Metoprolol [Lopressor] 12.5 mg PO BID 02/09/17 [History] Omeprazole [PriLOSEC] 40 mg PO DAILY 02/09/17 [History] Phenytoin ER [Dilantin ER] 100 mg PO TID 02/09/17 [History] Tizanidine HCl 4 mg PO TID PRN 02/09/17 [History] Sucralfate [Carafate] 1 gm PO QIDAC #120 tab 02/21/17 [Rx] Docusate [Colace] 100 mg PO BID #60 capsule 02/28/17 [Rx] OxyCODONE/APAP 10/325 [Percocet 10/325 MG] 1 each PO Q4HR PRN #42 tablet [Rx] Amoxicillin/Clavulanate [Augmentin] 875 mg PO BIDWM #20 tablet 03/08/17 [Rx] Allergies/Adverse Reactions: 3 Allergy/AdvReac Type Severity Reaction Status Date / Time No Known Allergies Allergy Verified 02/24/17 14:10 Certification: Further, I certify that my clinical findings support that this patient is homebound (i.e. absences from home require considerable and taxing effort and are for medical reasons or gnosticism services or infrequently or short duration when for other reasons) because: Homebound Reason: Patient requires assistance of a person or device to safely leave home, Leaving home requires considerable and taxing effort due to condition Attestation: My signature below is to certify that this patient is under my care and that I, or nurse practitioner, or a physician's public health assistant working with me, has a face-to -face encounter with this patient.
== END 2017-03-08 14:40 | disposition home health service (06) | DRG 444 ==
LOC: EMEROO 19:40 → 2NNU 19:40 → SUATTDRO 22:22
PROVIDERS: ADMIT Family Medicine; ATTEND Internal Medicine

== ENCOUNTER 2017-04-12 11:09 | Inpatient (IN) ==
[2017-04-12 12:49] LABS: Basophils % 0.2 %; Eosinophils # 0.4 K/mcL (0.0-0.6); Eosinophils % 2.2 %; Hematocrit 39.3 % (37.5-50.1); Hemoglobin 12.4 g/dL (12.9-16.9); Immature Granulocytes % 0.5 % (0-4); Lymphocytes # 2.3 K/mcL (0.6-4.6); Lymphocytes % 14.1 %; Mean Corpuscular HGB Conc 31.6 g/dL (31.6-35.5); Mean Corpuscular Hemoglobin 27.7 pg (28.0-33.3); Mean Corpuscular Volume 87.9 fL (83.0-100.0); Mean Platelet Volume 10.1 fL (9.4-12.4); Monocytes # 1.7 K/mcL (0.0-1.3); Monocytes % 10.5 %; Neutrophils # 11.9 K/mcL (1.6-8.9); Platelet Count 428 K/mcL (140-400); Red Blood Count 4.47 M/mcL (4.19-5.50); Red Cell Distribution Width 13.2 % (11.5-14.5); Segmented Neutrophils % 72.5 %
--- NOTE | 2017-04-12 12:54 | Emergency Department Note ---
Disposition Clinical Impression: Lower extremity edema, PVD (peripheral vascular disease), Arterial occlusion, lower extremity Disposition: Admitted As Inpatient Condition: Good Referrals: Suleman Fonseca MD [Primary Care Provider] - Forms: ED Satisfaction Letter Time of Disposition: 16:45 Extremity Problem HPI - General Chief complaint: ED Extremity Problem,Nontraumatic Stated complaint: r/o DVT RLE Time Seen by Provider: 04/12/17 11:30 Source: EMS Mode of arrival: EMS Limitations: no limitations, physical limitation Nursing Notes Reviewed: Yes Vital Signs Reviewed: Yes - History of Present Illness HPI Narrative: Patient presents emergency room for evaluation of right lower extremity pain. Patient does notice some colored change in his foot over the last 2-3 weeks. He has had pain in his life the last 2-3 weeks. He has not seen his primary care provider for this yet. Denies any fevers or chills nausea vomiting or diarrhea. Denies chest pain shortness of breath headache or vision change. Pt Subjective Complaint: extremity pain Onset (ago): week(s) Consistency: constant Injury Location: right, lower extremity Pain Scale: 6 Quality: aching Radiation: distal Improves with: nothing Worsens with: range of motion, weight bearing, walking, palpation, use Associated symptoms: Reports: denies other symptoms Context: history of peripheral vascular disease - Related Data Home Medications Medication Instructions Recorded Confirmed Clopidogrel [Plavix] 75 mg PO DAILY 02/04/15 04/12/17 Sertraline [Zoloft] 100 mg PO DAILY 07/31/15 04/12/17 Gabapentin 800 mg PO TID 08/06/16 04/12/17 Nitroglycerin [Nitrostat] 0.4 mg SL Q5M PRN 08/06/16 04/12/17 Simvastatin [Zocor] 40 mg PO HS 08/06/16 04/12/17 Amitriptyline [Elavil] 75 mg PO HS 02/09/17 04/12/17 Aspirin Enteric Coated [Aspirin EC] 81 mg PO DAILY 02/09/17 04/12/17 Fenofibrate Nanocrystallized 145 mg PO DAILY 02/09/17 04/12/17 [Tricor] Insulin ASPART [NovoLOG] 0 unit SQ TIDWM 02/09/17 04/12/17 Insulin Glargine,Hum.rec.anlog 60 units SQ DAILY 02/09/17 04/12/17 [Phyllis Espinosa] Lipase/Protease/Amylase [Baldo Lay 1 each PO AD 02/09/17 04/12/17 12,000 Units Capsule] Lipase/Protease/Amylase [Baldo Lay 1 each PO TIDWM 02/09/17 04/12/17 24,000 Units Capsule] Lisinopril 2.5 mg PO DAILY 02/09/17 04/12/17 Metoprolol [Lopressor] 12.5 mg PO BID 02/09/17 04/12/17 Omeprazole [PriLOSEC] 40 mg PO DAILY 02/09/17 04/12/17 Phenytoin ER [Dilantin ER] 100 mg PO TID 02/09/17 04/12/17 Tizanidine HCl 4 mg PO TID PRN 02/09/17 04/12/17 Previous Rx's Medication Instructions Recorded Sucralfate [Carafate] 1 gm PO QIDAC #120 tab 02/21/17 Docusate [Colace] 100 mg PO BID #60 capsule 02/28/17 OxyCODONE/APAP 10/325 [Percocet 1 each PO Q4HR PRN #42 tablet 02/28/17 10/325 MG] Amoxicillin/Clavulanate [Augmentin] 875 mg PO BIDWM #20 tablet 03/08/17 Allergies Allergy/AdvReac Type Severity Reaction Status Date / Time No Known Allergies Allergy Verified 04/12/17 11:16 All systems ED: reviewed and negative except as stated. Review of Systems: As Per HPI Constitutional: Denies: fever, chills Cardiovascular: Denies: chest pain, palpitations, dyspnea on exertion, orthopnea Respiratory: Denies: dyspnea, wheezes Gastrointestinal: Denies: nausea, vomiting, diarrhea Musculoskeletal: Reports: myalgia. Denies: back pain, neck pain Neurological: Denies: headache Past Medical History - Past Medical History Attestation: Yes The following information was validated with the patient. Source: patient Medical history: Reports: CHF, coronary artery disease, CVA, diabetes, hyperlipidemia, hypertension, myocardial infarction, seizures, other Surgical history: Reports: cholecystectomy (laproscopic ), coronary bypass (CABG ), other (Exploratory laparotomy for bowel obstruction in the remote past, upper midline incision, ERCP with stent placement) Psychiatric history: Reports: anxiety, depression - Social History Smoking Status: Former smoker Smokeless Tobacco Status: No Alcohol use: Reports: none Drug use: Reports: none Physical Exam - General Limitations: physical limitation General appearance: alert, in no apparent distress - Head Head exam: atraumatic, normocephalic, normal inspection - Neck Neck exam: Present: normal inspection, full ROM, trachea midline - Chest Chest inspection: Present: normal inspection, symmetric chest wall rise - Respiratory Respiratory exam: Present: normal lung sounds bilaterally - Cardiovascular Cardiovascular exam: Present: regular rate, normal rhythm, normal heart sounds - Abdominal Exam Abdominal exam: Present: soft, Non-Tender. Absent: tenderness, distention, guarding, rebound, rigidity - Extremities Exam Extremities exam: Present: other - Back Exam Back exam: Present: normal inspection - Neurological Exam Neurological exam: Present: alert, oriented X3, CN II-XII intact - Skin Skin exam: Present: warm, dry, intact, normal color, other Course Course Narrative: Patient seen and examined the time of arrival. See history of present illness. 57-year-old male presents with 2-3 weeks worth of pain in his right lower extremity. He was worried about a blood clot. Patient has a left lower extremity amputation. On physical exam patient is resting comfortably in the bed. Lungs are clear heart is regular. Abdomen is soft. Left lower extremity does not appear to be involved. Right lower extremity from the knee down is significantly cold. He does have blue discoloration to the foot from the dorsum of the foot down to the toes. The heel is discolored but is slightly more pink than the distal aspect of the foot itself. Patient has tenderness and pain across the entire Lower extremity. Pulses are difficult to appreciate at this time A" to evaluate. Patient is concerning for acute/subacute arterial occlusion of the right lower extremity. Symptoms were present for almost 2-3 weeks. Clinical presentation is most likely a slow progression of the boluses. Patient is otherwise resting in bed at this time. Patient will have acute ankle brachial index evaluation as well as CT angiography runoff right lower extremity. Chest x-ray EKG and screening labs will be ordered as well. Disposition will most likely admission for vascular evaluation. Patient is otherwise stable at this point. Will continue monitoring the course is completed. Pain medication be provided as needed. - Reevaluation(s) Reevaluation #1: Patient found to have significant arterial occlusion of the right lower extremity. He has palpable pulses in the femoral distribution according to CT aortogram with runoff patient is occlusion of the proximal femoral and external iliac. Patient has warmth feeling leg down to the knee and is cold from the knee down. Vital signs remain stable. Patient has intermittently tachycardic. Pain medication provided. Patient be evaluated by vascular surgery. Consultation postoperative Dr. Yanes the on-call vascular surgeon. He will evaluated. According to the detailed discussion with the patient has had the symptoms including pain and irritation and decreased warmth to the extremity since 2 weeks ago. Currently is not an acute arterial occlusion is more of a acute on chronic. Patient was started on heparin and admitted to the hospitalist for observation until vascular surgery next determination on viability of the extremity. With this plan and understands the process recommendations will be admitted at this time. Patient has had previous motion of the surgery as well as thrombectomy in the right lower stomach but no bypass. Patient will be evaluated in the inpatient setting Time: 16:39 Vital Signs Temperature 98.2 F 04/12/17 11:16 Pulse Rate 69 04/12/17 11:16 Respiratory Rate 12 04/12/17 11:16 Blood Pressure 114/69 04/12/17 11:16 O2 Sat by Pulse Oximetry 97 04/12/17 11:16 Temperature 98.2 F 04/12/17 11:16 Pulse Rate 93 04/12/17 14:38 Respiratory Rate 13 04/12/17 14:38 Blood Pressure 128/87 04/12/17 14:38 O2 Sat by Pulse Oximetry 97 04/12/17 14:38 Oxygen Delivery Oxygen Delivery Nasal Cannula Extremity Problem, Nontraumati - MDM Narrative Medical decision making narrative: Right lower extremity arterial occlusion - Medical Records Medical records reviewed: Yes I reviewed the patient's medical records. - Lab Data Lab results reviewed: Yes I reviewed the patient's lab results. Result diagrams: 04/12/17 12:41 04/12/17 12:41 Lab Results 04/12/17 04/12/17 04/12/17 Range/Units 12:41 12:41 12:41 WBC 16.4 H (4.3-11.1) K/mcL RBC 4.47 (4.19-5.50) M/mcL Hgb 12.4 L (12.9-16.9) g/dL Hct 39.3 (37.5-50.1) % MCV 87.9 (83.0-100.0) fL MCH 27.7 L (28.0-33.3) pg MCHC 31.6 (31.6-35.5) g/dL RDW 13.2 (11.5-14.5) % Plt Count 428 H (140-400) K/mcL MPV 10.1 (9.4-12.4) fL Immature Gran % 0.5 (0-4) % Seg Neutrophils % 72.5 % Lymphocytes % 14.1 % Monocytes % 10.5 % Eosinophils % 2.2 % Basophils % 0.2 % Neutrophils # 11.9 H (1.6-8.9) K/mcL Lymphocytes # 2.3 (0.6-4.6) K/mcL Monocytes # 1.7 H (0.0-1.3) K/mcL Eosinophils # 0.4 (0.0-0.6) K/mcL Basophils # 0.0 (0.0-0.2) K/mcL PT 11.7 (9.4-12.1) Seconds INR 1.1 APTT 32.2 (26.0-36.0) Seconds Sodium 137 (136-145) mEq/L Potassium 4.0 (3.5-4.5) mEq/L Chloride 102 (98-109) mEq/L Carbon Dioxide 25 (19-29) mEq/L BUN 17 (8-26) mg/dL Creatinine 0.93 (0.72-1.25) mg/dL Est GFR ( Amer) > 60 (> 60) Est GFR (Non-Af Amer) > 60 (> 60) BUN/Creatinine Ratio 18 (6-26) Glucose 147 H (70-99) mg/dL Calculated Osmolality 288 (280-300) Calcium 9.6 (8.6-10.8) mg/dL - Radiology Data Radiology results reviewed: Yes I reviewed the patient's radiology results. - EKG Data EKG attestation: Yes I reviewed and interpreted this EKG. EKG results narrative: EKG shows ventricular rate of 93. Atenolol 25. QRS duration 96. QTC of 397. No acute signs of ST segment elevation WPW Brugada syndrome or interval abnormality. Left axis noted on the initial EKG. Compared to EKG on 03/07/17 Critical Care Time Critical Care Time: Yes Total Critical Care Time: 35 Attestation: Critical care performed: Time is exclusive of separately billable procedures. Time includes: direct patient care, patient reassessment, coordination of patient care, interpretation of data (laboratory data, radiology data, and respiratory data), review of patient's medical records, medical consultation and documentation of patient care. Procedures included in critical care time: Procedures excluded from critical care time:
[2017-04-12 12:57] LABS: INR 1.1; Prothrombin Time 11.7 Seconds (9.4-12.1)
[2017-04-12] MEDS ORDERED: Ondansetron 4 MG/2 ML VIAL IVP ONE (12:58)
[2017-04-12] MEDS ORDERED: *HR* Morphine 2 MG/ML SYRINGE IVP ONE (12:58)
[2017-04-12 13:00] LABS: Activated Partial Thrombo Time 32.2 Seconds (26.0-36.0)
[2017-04-12 13:03] LABS: BUN/Creatinine Ratio 18 (6-26); Blood Urea Nitrogen 17 mg/dL (8-26); Calcium 9.6 mg/dL (8.6-10.8); Carbon Dioxide 25 mEq/L (19-29); Chloride 102 mEq/L (98-109); Glucose 147 mg/dL (70-99); Osmolality,Calculated 288 (280-300); Sodium 137 mEq/L (136-145); eGFR For African Americans > 60 (> 60); eGFR For Non-African Americans > 60 (> 60)
[2017-04-12] MEDS ORDERED: *HR* Heparin 5,000 UNIT/ML VIAL IVP ONE (14:18)
[2017-04-12] MEDS ORDERED: *HR* Heparin 5,000 UNIT/ML VIAL IVP PRN (14:18)
[2017-04-12] MEDS: Heparin 25,000 UNIT/500 ML D5W 25,000 UNIT/500 ML MLS IVC SCH (14:43)
[2017-04-12] MEDS ORDERED: Acetaminophen 325 MG TABLET PO PRN (20:39)
[2017-04-12] MEDS ORDERED: Ondansetron 4 MG/2 ML VIAL IVP PRN (20:39)
[2017-04-12] MEDS ORDERED: Naloxone 0.4 MG/ML INJ IVP PRN (20:39)
[2017-04-12] MEDS ORDERED: tiZANidine 4 MG TABLET PO PRN (20:40)
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
[2017-04-12] MEDS ORDERED: *HR* Dextrose 50 % in Water (Syg) 50 ML SYRINGE IVP PRN (20:55)
[2017-04-12] MEDS ORDERED: D5% in Water 1,000 ML IVC PRN (20:55)
[2017-04-12] MEDS ORDERED: Dextrose Gel 15 GM PO PRN ×2 (20:55)
[2017-04-12] MEDS ORDERED: Insulin DETEMIR 100 UNIT/ML X5UNITS SQ SCH (21:00)
[2017-04-12 21:26] LABS: Bilirubin,Urine Small (Negative); Blood,Urine Negative (Negative); Clarity,Urine Clear (Clear); Color,Urine Orange (Yellow); Glucose,Urine (UA) >=1000 mg/dL (Normal); Ketones,Urine Negative (Negative); Leukocyte Esterase,Urine Negative (Negative); Nitrite,Urine Negative (Negative); PH,Urine 5.5 pH Units (5.0-8.0); Protein,Urine 30 mg/dL (Neg-Trace); Specific Gravity,Urine > 1.030 (1.010-1.025); Urobilinogen,Urine Normal (Normal)
[2017-04-12 21:28] LABS: Bacteria,Urine None Seen per hpf (None-Few); RBC,Urine 0-3 per hpf (0-3); Squamous Epithelial Cell,Urine Moderate per lpf (None-Few); WBC,Urine 0-3 per hpf (0-3)
[2017-04-12 21:29] LABS: Hemoglobin A1C 10.9 %
[2017-04-12 21:43] LABS: Hyaline Casts,Urine Few per lpf (None-Few)
--- NOTE | 2017-04-12 21:49 | Event Note ---
Date of Encounter: 04/12/17 Time of Encounter: 21:46 Patient seen and examined with emergency medical technician basic. Agent with acute right leg ischemia. He has been having 2 days of severe rest pain, color changes and delayed capillary circulation. On examination he has no pulsations in the right lower extremity up to the femoral. Right lower extremities cold up to below knee level. Dr. Tavares will evaluate the patient and plan is for amputation. With regards to preoperative clearance patient has poor functional capacity. He has multiple clinical predictors Including diabetes mellitus, hypertension, dyslipidemia, coronary artery disease etc. patient has episodes of typical anginal pain at rest. He has known history of coronary artery disease status post PCI many years ago. He has not had a coronary evaluation in the past 5 years. He is definitely high risk for any vascular surgery. With as genetics physician service with assistance for preoperative clearance.
[2017-04-12] MEDS ORDERED: Vancomycin 1,250 MG in D5% in Water 250 ML IVPB SCH ×2 (22:00→23:00)
[2017-04-12] MEDS: *HR* HYDROmorphone (PF) 1 MG/ML SYRINGE IVP PRN (22:10)
[2017-04-12] MEDS: Sucralfate 1 GM TABLET PO SCH (22:10)
[2017-04-12] MEDS: *HR* Heparin 5,000 UNIT/ML VIAL IVP PRN (22:29)
[2017-04-12] MEDS ORDERED: 0.9 % Sodium Chloride 1,000 ML IVC SCH (22:30)
[2017-04-12] MEDS: Piperacillin/Tazobactam 3.375 GM in D5% in Water 50 ML IVPB SCH (23:37)
[2017-04-12] MEDS: *HR* OxyCODONE Immed Rel 5 MG TABLET PO PRN (23:52)
[2017-04-13] MEDS ORDERED: ceFAZolin 2,000 MG in Water for inj. (sterile) 20 ML IVP ONE ×2 (00:32→20:11)
--- NOTE | 2017-04-13 00:38 | Vascular/Endovasc Consult Note ---
Date of Encounter: 04/13/17 Time of Encounter: 00:35 Assessment and Plan (1) Type II diabetes mellitus Current Visit: No Status: Chronic Patient is receiving insulin therapy for chronic type 2 diabetes. Qualifiers: Diabetes mellitus complication status: with neurologic complications Diabetes mellitus complication detail: with unspecified neuropathy Diabetes mellitus prison insulin use: with prison use Qualified Code(s): E11.40 - Type 2 diabetes mellitus with diabetic neuropathy, unspecified; Z79.4 - half-way (current) use of insulin; Z79.4 - truck terminal manager (current) use of insulin; Z79.4 - half-way (current) use of insulin; Z79.4 - truck terminal manager (current) use of insulin (2) Arterial occlusion, lower extremity Current Visit: Yes Status: Acute Patient has history of severe bilateral lower extremity peripheral vascular occlusive disease. By the patient's history would appear that proximally 10 days to 2 weeks ago he had acute occlusion of the right lower extremity with progressive ischemia culminating in severe ischemia 2 days ago. The patient's overall prognosis for the right lower extremity is extremely poor. I reviewed with him the option of a primary rejaa-hqk-nyal amputation. He does not wish to proceed with this and wishes to have an attempt at thrombectomy. I explained his prognosis is poor such that even with a temporarily successful thrombectomy the neurologic improvement of the right lower extremity is questionable. He may still require an [id number] amputation. The patient wishes to proceed with an attempt at thrombectomy and is aware that he may require amputation in the near future if this is unsuccessful or the neurologic result is unsatisfactory. The IV heparin will be continued to the operating room. We'll make arrangements for him to go to the operating room tomorrow. There is no need for him to go early this morning to the operating room due to his very poor vascular prognosis. - History of Present Illness Consult date: 04/13/17 Requesting physician: Yazan Owens Consult reason: Ischemic right leg Chief complaint: Painful right leg History of present illness: Mr. Slaughter is a 57 year old male Who was admitted via the emergency room earlier on the afternoon of April 12. The patient presented with a 10 day or greater history of right lower extremity numbness and tingling and pain. He has had a worsening of the pain over the past 2 days. He has had difficulty sleeping. Because of the increasing pain he presented for attention. The patient states he has been trying to call attention to this issue but has not been able to get medical attention. Noninvasive testing was performed in the emergency room that included an ankle- brachial index which was 0 at the right foot. He is status post a left BKA. He also had a venous duplex scan that was within normal limits. A CT aortogram was also obtained. This demonstrated occlusion of the right iliac system as well as the right common femoral and superficial femoral and popliteal system. There is some flow noted in the peroneal artery. The patient has a very complicated past medical history with known severe peripheral vascular occlusive disease and coronary artery disease. He has multiple typical risk factors for vascular disease. He also is noncompliant. Last time the patient was in my clinic was over 2 years ago in December 2014. The patient is status post previous iliac stents and attempts at left lower extremity bypass. This culminated however and a left below the knee amputation. The patient also had an emergency surgery for right lower extremity ischemia and required an extensive thrombectomy via the femoral approach and the below- the-knee popliteal approach. This result is ischemia. Unfortunately the patient did not alter his lifestyle. Associated medical issues include hypertension and hyperlipidemia and coronary artery disease as well as diabetes. Past Med Surg Social Fam HX - Past Medical History Medical history: CHF, coronary artery disease, CVA, diabetes, hyperlipidemia, hypertension, myocardial infarction, seizures, other Psychiatric history: anxiety, depression - Past Surgical History Surgical History: angioplasty/stent, cholecystectomy (laproscopic ), coronary bypass (CABG), LE Bypass, LE stent(s) (Status post previous iliac stenting. Question will history of previous superficial femoral artery stenting), vascular surgery (Status post previous left lower extremity bypass grafting.), other (Exploratory laparotomy for bowel obstruction in the remote past, upper midline incision, ERCP with stent placement) - Social History Smoking Status: Former smoker Smokeless Tobacco Status: No Alcohol use: none Drug use: none - Family History Father Adopted: No Living Status: Still Living Hx Family Cardiac Disorders: Yes (CABG) Hx Family Endocrine Disorder: Yes Medications and Allergies Clopidogrel [Plavix] 75 mg PO DAILY 02/04/15 [History] Sertraline [Zoloft] 100 mg PO DAILY 07/31/15 [History] Gabapentin 800 mg PO TID 08/06/16 [History] Nitroglycerin [Nitrostat] 0.4 mg SL Q5M PRN 08/06/16 [History] Simvastatin [Zocor] 40 mg PO HS 08/06/16 [History] Amitriptyline [Elavil] 75 mg PO HS 02/09/17 [History] Aspirin Enteric Coated [Aspirin EC] 81 mg PO DAILY 02/09/17 [History] Fenofibrate Nanocrystallized [Tricor] 145 mg PO DAILY 02/09/17 [History] Insulin ASPART [NovoLOG] 0 unit SQ TIDWM 02/09/17 [History] Insulin Glargine,Hum.rec.anlog [Toujeo Solostar] 60 units SQ DAILY 02/09/17 [ History] Lipase/Protease/Amylase [Baldo Lay 12,000 Units Capsule] 1 each PO AD 02/09/17 [ History] Lipase/Protease/Amylase [Baldo Lay 24,000 Units Capsule] 1 each PO TIDWM [History] Lisinopril 2.5 mg PO DAILY 02/09/17 [History] Metoprolol [Lopressor] 12.5 mg PO BID 02/09/17 [History] Omeprazole [PriLOSEC] 40 mg PO DAILY 02/09/17 [History] Phenytoin ER [Dilantin ER] 100 mg PO TID 02/09/17 [History] Tizanidine HCl 4 mg PO TID PRN 02/09/17 [History] Sucralfate [Carafate] 1 gm PO QIDAC #120 tab 02/21/17 [Rx] Docusate [Colace] 100 mg PO BID #60 capsule 02/28/17 [Rx] OxyCODONE/APAP 10/325 [Percocet 10/325 MG] 1 each PO Q4HR PRN #42 tablet [Rx] Amoxicillin/Clavulanate [Augmentin] 875 mg PO BIDWM #20 tablet 03/08/17 [Rx] 3 Allergy/AdvReac Type Severity Reaction Status Date / Time No Known Allergies Allergy Verified 04/12/17 11:16 All Systems Review: A 10-system review of systems was performed and is negative for pertinent findings except as documented above in the HPI. Exam Vital Signs, Last 4 Hours Temp Pulse Resp BP Pulse Ox 04/12/17 23:42 99.2 F 104 17 144/84 96 04/12/17 20:58 98 04/12/17 20:48 99.5 F 106 24 169/82 General: Present: Conversant, No Apparent Distress, Well developed, Well nourished HEENT: Present: Atraumatic, Normocephaly, Trachea midline Neck: Absent: JVD, Lymphadenopathy, Left Carotid bruit, Right Carotid bruit, Midline deformity, Tracheal deviation Cardiac: Present: Reg Rate and Rhythm, Normal S1 and S2, No Murmur Lungs: Present: Normal Breath Sounds, No Wheeze, Rales, Rhonchi Neuro: Present: Alert and responsive, Other (The patient has extraordinary sensitivity to manipulation and light palpation of the right calf and foot. Patient has decreased range of motion of the toes and ankle and knee of the right lower extremity.). Absent: No focal deficits noted, Motor nerves grossly intact, Sensory nerves grossly intact Abdomen: Present: Soft, Non-tender. Absent: Masses Vascular: Present: Capillary refill delayed (Marked delayed in capillary refilling of a proximally 5 seconds at the right foot.), Bruit (Patient has a left pelvic bruit and a left femoral bruit.), Pulse, absent (Patient does not have palpable right femoral popliteal or pedal pulses.), Pulse, normal (Left femoral pulses 2+ and normal.), Color/Temperature (The right foot and toes are cool to cold to touch. The calf is cool. Decreased color to the right foot and toes and to the right calf.), Surgical incisions (Patient has surgical incisions at the right groin and at the right below the knee popliteal area.), Other (Patient has tenderness on manipulation of the right calf though the right calf remains soft. There is no signs of external trauma. Patient has changes of the skin consistent with chronic ischemia of the right lower extremity.) Consult Discharge Plan - Plan Referrals: Suleman Fonseca MD [Primary Care Provider] -
[2017-04-13] MEDS: *HR* HYDROmorphone (PF) 1 MG/ML SYRINGE IVP PRN ×4 (04:24→22:32)
[2017-04-13 04:37] LABS: Basophils # 0.1 K/mcL (0.0-0.2); Basophils % 0.3 %; Eosinophils # 0.1 K/mcL (0.0-0.6); Eosinophils % 0.7 %; Hematocrit 35.7 % (37.5-50.1); Hemoglobin 11.5 g/dL (12.9-16.9); Immature Granulocytes % 0.5 % (0-4); Lymphocytes # 3.1 K/mcL (0.6-4.6); Mean Corpuscular HGB Conc 32.2 g/dL (31.6-35.5); Mean Corpuscular Hemoglobin 27.8 pg (28.0-33.3); Mean Corpuscular Volume 86.4 fL (83.0-100.0); Mean Platelet Volume 10.7 fL (9.4-12.4); Monocytes # 2.3 K/mcL (0.0-1.3); Monocytes % 11.7 %; Neutrophils # 13.6 K/mcL (1.6-8.9); Platelet Count 436 K/mcL (140-400); Red Blood Count 4.13 M/mcL (4.19-5.50); Red Cell Distribution Width 13.2 % (11.5-14.5); Segmented Neutrophils % 70.8 %
[2017-04-13 04:42] LABS: Alanine Aminotransferase 116 Units/L (0-55); Albumin 2.5 g/dL (3.5-5.0); Albumin/Globulin Ratio 0.6 (1.1-2.2); Alkaline Phosphatase 688 Units/L (38-126); Aspartate Amino Transferase 122 Units/L (5-34); BUN/Creatinine Ratio 18 (6-26); Blood Urea Nitrogen 12 mg/dL (8-26); Calcium 8.8 mg/dL (8.6-10.8); Carbon Dioxide 23 mEq/L (19-29); Chloride 102 mEq/L (98-109); Glucose 95 mg/dL (70-99); Magnesium 1.5 mg/dL (1.6-2.6); Osmolality,Calculated 280 (280-300); Potassium 3.7 mEq/L (3.5-4.5); Sodium 135 mEq/L (136-145); Total Protein 6.5 g/dL (6.0-8.3); eGFR For African Americans > 60 (> 60); eGFR For Non-African Americans > 60 (> 60)
[2017-04-13 04:44] LABS: Chol/HDL Ratio 2.3 (0-4.9)
[2017-04-13 05:01] LABS: C-Reactive Protein 159 mg/L (Less than 5)
[2017-04-13] MEDS: Piperacillin/Tazobactam 3.375 GM in D5% in Water 50 ML IVPB SCH ×2 (05:20→13:53)
[2017-04-13] MEDS: *HR* Heparin 5,000 UNIT/ML VIAL IVP PRN (05:20)
[2017-04-13] MEDS: Insulin LISPRO 300 UNITS/3 ML VIAL SQ SCH ×2 (07:07→13:07)
[2017-04-13] MEDS: *HR* OxyCODONE Immed Rel 5 MG TABLET PO PRN (07:09)
[2017-04-13] MEDS: Sucralfate 1 GM TABLET PO SCH ×3 (07:09→22:32)
[2017-04-13] MEDS ORDERED: 0.9 % Sodium Chloride 1,000 ML IVC SCH (07:45)
--- NOTE | 2017-04-13 08:15 | Internal Med Progress Note ---
<CarlosSantiago - Last Filed: 04/13/17 15:35> Date of Encounter: 04/13/17 Time of Encounter: 08:15 - Assessment and plan (1) Ischemia of right lower extremity Current Visit: Yes Status: Acute Assessment and plan: Severe bilateral lower extremity peripheral vascular occlusive disease with acute occlusion of the right lower extremity with progressive ischemia culminating in severe ischemia 2 days ago. Patient does not wish to proceed with RLE amputaion and wishes to have an attempt at thrombectomy He may still require an [id number] amputation Continue IV heparin ggt Anticipate RLE thrombectomy today Very poor vascular prognosis Vascular surgery/ Dr. Tavares following (2) PVD (peripheral vascular disease) Current Visit: Yes Status: Chronic Assessment and plan: Severe bilateral lower extremity peripheral vascular occlusive disease, prior left BKA (3) DM2 (diabetes mellitus, type 2) Current Visit: Yes Status: Chronic Assessment and plan: Uncontrolled diabetes mellitus, recent A1c of greater than 14 in August HGB A1c 10.9 Sliding-scale insulin, 20 units basal after surgery Qualifiers: Diabetes mellitus complication status: with circulatory complication Diabetes mellitus complication detail: with other circulatory complications Diabetes mellitus penitentiary insulin use: with intermediate teacher use Qualified Code(s) : E11.59 - Type 2 diabetes mellitus with other circulatory complications; Z79.4 - senior living (current) use of insulin; Z79.4 - manager terminal (current) use of insulin ; Z79.4 - manager terminal (current) use of insulin; Z79.4 - manager terminal (current) use of insulin (4) Leukocytosis Current Visit: Yes Status: Acute Assessment and plan: Likley reactive leukocytosis with white count of 16.6 --> 19.3. He is afebrile. No obvious source of infection. Possibily related to ischemic injury of organs (muscles) related to acute ischemia. CPK 2798, lactic acid 2.2 IVF NS at 125cc/hr Continue empiric on antibiotics vancomycin and zosyn. Qualifiers: Leukocytosis type: unspecified Qualified Code(s): D72.829 - Elevated white blood cell count, unspecified (5) CAD (coronary artery disease) Current Visit: No Status: Chronic Assessment and plan: Resume home meds Qualifiers: Coronary Disease-Associated Artery/Lesion type: bypass graft [place] vs. transplanted heart: [place] heart Associated angina: without angina Qualified Code(s): I25.810 - Atherosclerosis of coronary artery bypass graft(s) without angina pectoris (6) HTN (hypertension) Current Visit: Yes Status: Acute Assessment and plan: Resume home meds Qualifiers: Hypertension type: unspecified Qualified Code(s): I10 - Essential (primary ) hypertension (7) HLD (hyperlipidemia) Current Visit: No Status: Chronic Assessment and plan: Resume home meds Qualifiers: Hyperlipidemia type: mixed hyperlipidemia Qualified Code(s): E78.2 - Mixed hyperlipidemia (8) Seizure disorder Current Visit: No Status: Chronic Assessment and plan: Resume home meds (9) DVT prophylaxis Current Visit: No Status: Acute Assessment and plan: Heparin ggt - Subjective Interval history: Patient seen and examined. Patient reports pain level poorly controlled and is currently NPO awaiting surgery this afternoon. All questions were answered at bedside. - Constitutional Vitals: Temp Pulse Resp BP Pulse Ox 98.8 F 94 16 109/83 97 04/13/17 07:47 04/13/17 07:47 04/13/17 07:47 04/13/17 07:47 04/13/17 07:47 General appearance: Present: cooperative, A&O X 3, answers questions appropriately Exam: moderate distress - Head Head exam: Present: atraumatic, normal inspection, normocephalic - Eye Eye exam: Present: EOMI, conjuntiva pink, sclera anicteric - ENT ENT exam: Present: mucous membranes dry, normal oropharynx - Neck Neck exam general surgery: Present: supple Additional comments: no carotid bruits - Respiratory Respiratory exam: Present: CTAB. Absent: rhonchi, wheezes - Cardiovascular Cardiovascular exam: Present: +S1, +S2, tachycardia - GI/Abdominal GI/Abdominal exam: Present: normal bowel sounds, soft. Absent: guarding, tenderness - Additional comments: no alfaro - Extremities Exam Additional comments: left BKA with 2+ femoral pulse, changes of the skin consistent with chronic ischemia of the right lower extremity, cold toes, no right femoral pulses, tenderness to palpation, unable to move his toes - Back Exam Back exam: Present: normal inspection. Absent: paraspinal tenderness, tenderness - Neurological Exam Neurological exam: Present: alert, oriented X3. Absent: speech deficit - Psychiatric Psychiatric exam: Present: depressed, flat affect - Skin Additional comments: changes of the skin consistent with chronic ischemia of the right lower extremity, cold toes Internal Medicine: Result - Labs CBC & Chem 7: 04/13/17 03:41 04/13/17 03:41 Labs: Short CBC 04/13/17 Range/Units 03:41 WBC 19.3 H (4.3-11.1) K/mcL Hgb 11.5 L (12.9-16.9) g/dL Hct 35.7 L (37.5-50.1) % Plt Count 436 H (140-400) K/mcL Neutrophils # 13.6 H (1.6-8.9) K/mcL BMP 04/13/17 03:41 Sodium 135 L Potassium 3.7 Chloride 102 Carbon Dioxide 23 BUN 12 Creatinine 0.67 L Glucose 95 Calcium 8.8 Cardiac Enzymes 04/12/17 Range/Units 22:15 Troponin I 0.01 (0-0.03) ng/mL Liver Function 04/13/17 Range/Units 03:41 Total Bilirubin 1.0 (0.2-1.2) mg/dL AST 122 H (5-34) Units/L ALT 116 H (0-55) Units/L Alkaline Phosphatase 688 H (38-126) Units/L Albumin 2.5 L (3.5-5.0) g/dL Urine 04/12/17 Range/Units 17:25 Urine Color [place] A (Yellow) Urine Clarity Clear (Clear) Urine pH 5.5 (5.0-8.0) pH Units Ur Specific Moran > 1.030 H (1.010-1.025) Urine Protein 30 H (Neg-Trace) mg/dL Urine Glucose (UA) >=1000 H (Normal) mg/dL - ABG Interpretation ABG results: PT/INR, D-dimer PT 11.7 Seconds (9.4-12.1) 04/12/17 12:41 - Pulse Oximetry Interpretation Digit-Finger Pulse Oximetry Readin (1.5 L O2 via NC) Consult Discharge Plan - Plan Referrals: Suleman Fonseca MD [Primary Care Provider] - 04/20/17 11:30 am Kel Tavares MD [Partnered Physician] - 05/04/17 11:30 am <Gill,Yinzhong - Last Filed: 04/13/17 16:31> Date of Encounter: 04/13/17 - Constitutional Vitals: Temp Pulse Resp BP Pulse Ox 99.3 F 97 16 136/54 97 04/13/17 11:16 04/13/17 11:16 04/13/17 11:16 04/13/17 11:16 04/13/17 11:16 Internal Medicine: Result - Labs CBC & Chem 7: 04/13/17 03:41 04/13/17 03:41 - ABG Interpretation ABG results: PT/INR, D-dimer PT 11.7 Seconds (9.4-12.1) 04/12/17 12:41 - Attending Attestation I have seen and examined the patient independently. I have discussed with resident physician Dr Gonzalez regarding the management plan. Agree with the documentation. Patient still complaining of right leg pain. On heparin drip. On pain medication. Vascular surgery on case and the plan for surgery in the afternoon.
--- NOTE | 2017-04-13 08:16 | Cardiology Consult Note ---
Date of Encounter: 04/13/17 Time of Encounter: 10:30 Assessment and Plan (1) Pre-operative cardiovascular examination Current Visit: Yes Status: Acute Patient states that he does get stabbing, achy chest pain at rest and with exertion but pain has been present for years and is unchanged. Chest pain occurs every time he has abdominal pain with associated nausea, denies sweating or arm pain. Nuclear stress test performed 12/14/16 which showed EF = 59% and negative for ischemia or infarct. Last C 11/18/2014, PTCA followed by cutting balloon angioplasty of the proximal RCA in-stent restenosis. Patient's home meds include Aspirin, Plavix, Metoprolol, and Lisinopril at home. Plan: Patient needs not further cardiac testing and is acceptable intermediate risk for vascular surgery. (2) CAD (coronary artery disease) Current Visit: No Status: Chronic Qualifiers: Coronary Disease-Associated Artery/Lesion type: bypass graft [place] vs. transplanted heart: hoh heart Associated angina: without angina Qualified Code(s): I25.810 - Atherosclerosis of coronary artery bypass graft(s) without angina pectoris (3) PVD (peripheral vascular disease) Current Visit: Yes Status: Chronic (4) HLD (hyperlipidemia) Current Visit: No Status: Chronic Qualifiers: Hyperlipidemia type: mixed hyperlipidemia Qualified Code(s): E78.2 - Mixed hyperlipidemia (5) HTN (hypertension) Current Visit: Yes Status: Acute Qualifiers: Qualified Code(s): I10 - Essential (primary) hypertension Discussion w patient/family: The assessment and plan as outlined above was discussed with the patient and/or family members who expressed understanding and agreement. All questions were answered. Thank you for involving us in the care of your patient. Please call with any questions. History of Present Illness Consult date: 04/13/17 Requesting physician: Wes Salazar Consult reason: pre-op clearance Chief complaint: pain and discoloration in foot History of present illness: Mr. Slaughter is a 57 year old male with pmh of left BKA (september 2012), HTN, HLP, CAD s/p stents ( restenosis RCA 2014, RCA 2005), PVD s/p iliac stents (october 2013 ) and right lower extremity thrombectomy R fem pop bypass 2011, stroke of right MCA, former smoker (quit 1 mo ago), DM2 insulin dependent, presented to the ED with R LE pain and discoloration and found to have arterial occlusion of his R lower extremity. Cardiology was consulted for pre-surgical consult for a R lower extremity thrombectomy. Patient states that he has episodes of chest pain at rest and with exertion but this has been occurring for years and is unchanged. Chest pain is described as sharp and achy and spans both to the left and right side. He does have nitro at home but has not taken when he is having chest pain. At rest they occur concurrently with abdominal pain and nausea. He states that when he is cleaning his house or using his wheel chair he also gets chest pain but has had chest pain for the last 4 years ever since he obtained the wheel chair and is unchanged. Nuclear stress test performed 12/14/16 which showed EF = 59% and negative for ischemia or infarct. Last C 11/18/2014, PTCA followed by cutting balloon angioplasty of the proximal RCA in-stent restenosis. Fhx of father with CABG x3, mother CAD 59 NH had a pacemaker. Past Med Surg Social Fam HX - Past Medical History Medical history: CHF, coronary artery disease, CVA, diabetes, hyperlipidemia, hypertension, myocardial infarction, seizures, other Psychiatric history: anxiety, depression - Past Surgical History Surgical History: angioplasty/stent, cholecystectomy (laproscopic ), coronary bypass (CABG), LE Bypass, LE stent(s) (Status post previous iliac stenting. Question will history of previous superficial femoral artery stenting), vascular surgery (Status post previous left lower extremity bypass grafting.), other (Exploratory laparotomy for bowel obstruction in the remote past, upper midline incision, ERCP with stent placement) - Social History Smoking Status: Former smoker Smokeless Tobacco Status: No Alcohol use: none Drug use: none - Family History Father Adopted: No Living Status: Still Living Hx Family Cardiac Disorders: Yes (CABG) Hx Family Endocrine Disorder: Yes Medications and Allergies Clopidogrel [Plavix] 75 mg PO DAILY 02/04/15 [History] Sertraline [Zoloft] 100 mg PO DAILY 07/31/15 [History] Gabapentin 800 mg PO TID 08/06/16 [History] Nitroglycerin [Nitrostat] 0.4 mg SL Q5M PRN 08/06/16 [History] Simvastatin [Zocor] 40 mg PO HS 08/06/16 [History] Amitriptyline [Elavil] 75 mg PO HS 02/09/17 [History] Aspirin Enteric Coated [Aspirin EC] 81 mg PO DAILY 02/09/17 [History] Fenofibrate Nanocrystallized [Tricor] 145 mg PO DAILY 02/09/17 [History] Insulin ASPART [NovoLOG] 0 unit SQ TIDWM 02/09/17 [History] Insulin Glargine,Hum.rec.anlog [Toujeo Solostar] 60 units SQ DAILY 02/09/17 [ History] Lipase/Protease/Amylase [Baldo Lay 12,000 Units Capsule] 1 each PO AD 02/09/17 [ History] Lipase/Protease/Amylase [Baldo Lay 24,000 Units Capsule] 1 each PO TIDWM [History] Lisinopril 2.5 mg PO DAILY 02/09/17 [History] Metoprolol [Lopressor] 12.5 mg PO BID 02/09/17 [History] Omeprazole [PriLOSEC] 40 mg PO DAILY 02/09/17 [History] Phenytoin ER [Dilantin ER] 100 mg PO TID 02/09/17 [History] Tizanidine HCl 4 mg PO TID PRN 02/09/17 [History] Sucralfate [Carafate] 1 gm PO QIDAC #120 tab 02/21/17 [Rx] Docusate [Colace] 100 mg PO BID #60 capsule 02/28/17 [Rx] OxyCODONE/APAP 10/325 [Percocet 10/325 MG] 1 each PO Q4HR PRN #42 tablet [Rx] Amoxicillin/Clavulanate [Augmentin] 875 mg PO BIDWM #20 tablet 03/08/17 [Rx] 3 Allergy/AdvReac Type Severity Reaction Status Date / Time No Known Allergies Allergy Verified 04/12/17 11:16 All Systems Review: A 10-system review of systems was performed and is negative for pertinent findings except as documented above in the HPI. Physical Examination Vital Signs, Last 4 Hours Temp Pulse Resp BP Pulse Ox 04/13/17 07:47 98.8 F 94 16 109/83 97 04/13/17 05:04 98.2 F 100 20 135/63 96 General: Conversant, No Apparent Distress HEENT: Atraumatic, Normocephaly, Mucus Membranes Moist Neck: No JVD, Normal carotid pulses Cardiac: Other (tachycardic, regular rhythm) Lungs: Normal Breath Sounds, No Wheeze, Rales, Rhonchi Neuro: Alert and responsive, No focal deficits noted Abdomen: Soft, Non-Tender Skin: No rashes noted on visualized skin Extremities: No Edema, Other (left BKA, right leg with redness extending up the leg and blue discoloration and cold toes, patient is extremely sensitive to touch being painful, he states he is unable to wiggle his toes) Results 04/13/17 03:41 04/13/17 03:41 Lab Results 04/12/17 04/12/17 04/13/17 20:59 22:15 03:41 WBC 19.3 H Hgb 11.5 L Hct 35.7 L Plt Count 436 H APTT 40.1 H Sodium Potassium Chloride Carbon Dioxide BUN Creatinine Glucose Calcium Magnesium Total Bilirubin AST ALT Alkaline Phosphatase Troponin I 0.01 04/13/17 04/13/17 03:41 03:41 WBC Hgb Hct Plt Count APTT 37.5 H Sodium 135 L Potassium 3.7 Chloride 102 Carbon Dioxide 23 BUN 12 Creatinine 0.67 L Glucose 95 Calcium 8.8 Magnesium 1.5 L Total Bilirubin 1.0 AST 122 H ALT 116 H Alkaline Phosphatase 688 H Troponin I - EKG Interpretation EKG results cardiology: personally reviewed, sinus rhythm, no diagnostic ischemia Consult Discharge Plan - Plan Referrals: Suleman Fonseca MD [Primary Care Provider] - 04/20/17 11:30 am Kel Tavares MD [Partnered Physician] - 05/04/17 11:30 am
[2017-04-13] MEDS ORDERED: Aspirin Enteric Coated 81 MG Tablet PO SCH (09:00)
[2017-04-13] MEDS: Heparin 25,000 UNIT/500 ML D5W 25,000 UNIT/500 ML MLS IVC SCH ×2 (13:45→21:50)
[2017-04-13] MEDS ORDERED: *HR* Propofol 200 MG/20 ML VIAL IVP ONE (14:50)
[2017-04-13] MEDS ORDERED: *HR* FentaNYL (PF) 100 MCG/2 ML VIAL ONE (14:50)
[2017-04-13] MEDS ORDERED: *HR* Midazolam HCl 2 MG/2 ML VIAL ONE (14:50)
[2017-04-13] MEDS ORDERED: Heparin 1,000 UNITS/500 mL NS 500 ML ONE ×2 (14:56→15:26)
[2017-04-13] MEDS ORDERED: CeFAZolin Syr 2,000MG/20 ML 2,000 MG/20 ML SYRINGE IVPB ONE ×2 (15:00→20:11)
--- NOTE | 2017-04-13 15:18 | Anesthesia Evaluation PreOp ---
Date of Encounter: 04/13/17 Time of Encounter: 15:16 - Past History Planned Operation: Right LE thrombectomy Cardiac History: DC (2, most recently 4-5 years ago), HTN, Hyperlipidemia, Cardiac Surgery Pulmonary History: Former smoker, COPD [employer] History: Seizures (grand mal), CVA (in 2002 - Left sided weakness that resolved) Other Medical History: Renal (ckd), Diabetes Type II Alcohol Use: none Drug use: none Medications and Allergies Clopidogrel [Plavix] 75 mg PO DAILY 02/04/15 [History] Sertraline [Zoloft] 100 mg PO DAILY 07/31/15 [History] Gabapentin 800 mg PO TID 08/06/16 [History] Nitroglycerin [Nitrostat] 0.4 mg SL Q5M PRN 08/06/16 [History] Simvastatin [Zocor] 40 mg PO HS 08/06/16 [History] Amitriptyline [Elavil] 75 mg PO HS 02/09/17 [History] Aspirin Enteric Coated [Aspirin EC] 81 mg PO DAILY 02/09/17 [History] Fenofibrate Nanocrystallized [Tricor] 145 mg PO DAILY 02/09/17 [History] Insulin ASPART [NovoLOG] 0 unit SQ TIDWM 02/09/17 [History] Insulin Glargine,Hum.rec.anlog [Toujeo Solostar] 60 units SQ DAILY 02/09/17 [ History] Lipase/Protease/Amylase [Baldo Lay 12,000 Units Capsule] 1 each PO AD 02/09/17 [ History] Lipase/Protease/Amylase [Baldo Lay 24,000 Units Capsule] 1 each PO TIDWM [History] Lisinopril 2.5 mg PO DAILY 02/09/17 [History] Metoprolol [Lopressor] 12.5 mg PO BID 02/09/17 [History] Omeprazole [PriLOSEC] 40 mg PO DAILY 02/09/17 [History] Phenytoin ER [Dilantin ER] 100 mg PO TID 02/09/17 [History] Tizanidine HCl 4 mg PO TID PRN 02/09/17 [History] Sucralfate [Carafate] 1 gm PO QIDAC #120 tab 02/21/17 [Rx] Docusate [Colace] 100 mg PO BID #60 capsule 02/28/17 [Rx] OxyCODONE/APAP 10/325 [Percocet 10/325 MG] 1 each PO Q4HR PRN #42 tablet [Rx] Amoxicillin/Clavulanate [Augmentin] 875 mg PO BIDWM #20 tablet 03/08/17 [Rx] 3 Allergy/AdvReac Type Severity Reaction Status Date / Time No Known Allergies Allergy Verified 04/12/17 11:16 - Meds/Allergy Pre-op Review Medications Reviewed: Yes Allergies Reviewed: Yes Beta Blockers on Current Med List: Yes Anesthesia Results - Labs 04/13/17 03:41 04/13/17 03:41 - Imaging EKG: report reviewed, image reviewed Additional studies: Cardiology consult: A/P: Preoperative cardiovascular evaluation CAD PAD sp intervention Acute limb ischemia Recent stress test 12/2016 without ischemia. Chest pain unchanged since stress test. Acceptable intermediate CV risk for vascular surgery. TTE: Indications: Hypotension, hypoxia, CHF Impressions: LVEF 65-70%. No pulmonary hypertension. No significant valvular dysfunction. Anesthesia Exam Last Vital Signs Temp 99.3 F 04/13/17 11:16 Pulse 97 04/13/17 11:16 Resp 16 04/13/17 11:16 BP 136/54 04/13/17 11:16 Pulse Ox 97 04/13/17 11:16 Weight: 80 kg NPO (# of Hours): > 8 hrs - HEENT Pupil (Motor): Pupils equal, EOMI Mallampati: II Teeth: Edentulous Oral Opening: Greater than 3 - [facility] LOC: Oriented - Cardiac Rhythm: Regular Murmur: None - Pulmonary Breath Sounds: bilateral Clear Respiratory Effort: Symmetrical Anesthesia Assess/Plan ASA Score: 3 Modified [place] Scale for Level of Consciousness: Cooperative, oriented, and tranquil Anesthetic Plan: General Monitoring Plan: Standard Monitors, A-Line (+/-) Recovery Plan: PACU
[2017-04-13] MEDS ORDERED: Nitroglycerin 0.4 MG TAB.SUBL SL PRN ×2 (15:32→20:11)
[2017-04-13] MEDS ORDERED: Vancomycin 1,250 MG in D5% in Water 250 ML IVPB SCH (17:00)
[2017-04-13] MEDS ORDERED: *HR* HYDROmorphone (PF) 1 MG/ML SYRINGE IVP PRN ×2 (17:41→20:11)
[2017-04-13] MEDS ORDERED: Ondansetron 4 MG/2 ML VIAL IVP PRN ×3 (17:41→20:11)
[2017-04-13] MEDS ORDERED: *HR* Metoprolol 5 MG/5 ML VIAL IVP ONE (17:51)
[2017-04-13] MEDS ORDERED: Dexamethasone 4 MG/ML VIAL ONE (17:54)
[2017-04-13] MEDS ORDERED: Ondansetron 4 MG/2 ML VIAL ONE (17:54)
[2017-04-13] MEDS ORDERED: Lidocaine -MPF 2% 2 ML VIAL ONE (17:54)
[2017-04-13] MEDS ORDERED: *HR* Heparin 5,000 UNIT/ML VIAL ONE (17:54)
--- NOTE | 2017-04-13 19:03 | Electrocardiograph Report ---
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
--- NOTE | 2017-04-13 19:31 | Operative Note ---
Date of procedure: 04/13/17 Pre-op diagnosis: recurrent ischemia of right lower extremity Post-op diagnosis: same Procedure: right [id number] arterial thrombectomy Complications: none Anesthesia: GETA Surgeon: Kel Tavares Estimated blood loss (cc): 500 Specimen: none Condition: stable Disposition: PACU Procedure in Detail: History Juan Carlos Slaughter is a 57-year-old white male who was admitted via the emergency room with persistent right lower extremity pain. His symptoms began about 10 days to 2 weeks prior to admission. He has severe pain. He was found to have an ankle-brachial index of 0. He had minimal neuromuscular function and severe tenderness to manipulation. Patient was advised to undergo primary above-the- knee amputation which he declined and he insisted upon an attempt at thrombectomy to try to save the limb. The patient was counseled that this was highly unlikely to occur but he persisted in his request any outcomes for an emergent right lower extremity thrombectomy. A CT scan was performed preoperatively via the emergency room physicians. This demonstrated thrombosis of the right iliac and femoral and popliteal system. There is very poor perfusion into the tibial vessels as well. Procedure After informed consent was obtained the patient was taken to the operating room. General endotracheal anesthesia was established. The right lower extremity was sterilely prepped and draped. An incision was made in the right groin through the previous incision from a thrombectomy performed approximately 2-1/2 years ago. The patient had extremely dense and adherent scar tissue surrounding the femoral system. This was an extremely difficult dissection and tedious. Eventually the femoral artery was dissected to the point that control could be obtained proximally and distally. A longitudinal opening was made on the distal common femoral artery over an area of her previous patch angioplasty. A large amount of bulky lack gelatinous thrombus was encountered. This was suctioned out of the vessel. Then using a series of Seth catheters they were introduced and passed retrograde into the aortic system. A large amount of thrombus was removed and the patient had pulsatile flow restored. It should be noted that the patient had been placed on heparin drip upon admission and this was continued during the operation. This was also supplemented with an additional bolus of heparin. Attention was then directed into the superficial femoral and profunda femoris artery. Thrombus was removed from both vessels which appeared to be subacute to acute. Backbleeding was established from the profunda femoris artery. No backbleeding was established from the superficial femoral artery. The catheter would only pass to the level of the knee into the superficial femoral artery and popliteal artery. After all vessels were flushed with heparinized saline and the opening in the artery was closed with a running 6-0 Prolene suture. After appropriate backbleeding and flushing the vessels were opened and pulsatile flow was restored into the thigh. The patient demonstrated a palpable pulse at the vessels at the groin as well as Doppler signals of the Doppler signals indicated high resistance runoff distally. No Doppler signals could be identified at the ankle or the popliteal level. Due to the extreme nature of the patient's ischemia and advanced findings further intervention was not indicated. The wound was then irrigated. Marcaine was infiltrated into the wound edges. The wound was then closed in layers. A dry sterile dressing was applied. The patient was x-rayed in the operating room. He was taken to the recovery room in stable condition. Patient has an extremely poor prognosis for the right lower extremity. He'll be observed overnight heparin drip will be continued. If there is no improvement by tomorrow I would anticipate he will require amputation above the knee.
--- NOTE | 2017-04-13 20:10 | Anesthesia Evaluation Post Op ---
Date of Encounter: 04/13/17 Time of Encounter: 20:10 - Vital Signs Vital Signs: Vital Signs/O2 Sat, Most Current Temp Pulse Resp BP Pulse Ox 97.5 F L 96 20 148/90 94 04/13/17 20:01 04/13/17 20:01 04/13/17 20:01 04/13/17 20:01 04/13/17 20:01 - Lungs Lungs: Clear Ascult./Percussion - Airway Airway: Non-obstructed - Cardiovascular Regular Rate - Mental Status Mental Status: Alert & Oriented, Answers Appropriately - Pain Pain Scale: 0 Pain Scale used: Numeric (1 - 10) (0) - Nausea Vomiting Nausea Vomiting: Not Present - Hydration Hydration: NPO, Welsh catheter - Discharge PostOp Status: Transfer Patient to floor
[2017-04-13] MEDS ORDERED: Acetaminophen 325 MG TABLET PO PRN (20:11)
[2017-04-13] MEDS ORDERED: *HR* Dextrose 50 % in Water (Syg) 50 ML SYRINGE IVP PRN (20:11)
[2017-04-13] MEDS ORDERED: Dextrose Gel 15 GM PO PRN ×2 (20:11)
[2017-04-13] MEDS ORDERED: *HR* OxyCODONE Immed Rel 5 MG TABLET PO PRN (20:11)
[2017-04-13] MEDS ORDERED: D5% in Water 1,000 ML IVC PRN (20:11)
[2017-04-13] MEDS ORDERED: *HR* Heparin 5,000 UNIT/ML VIAL IVP PRN (20:11)
[2017-04-13] MEDS ORDERED: tiZANidine 4 MG TABLET PO PRN (20:11)
[2017-04-13] MEDS ORDERED: Naloxone 0.4 MG/ML INJ IVP PRN ×2 (20:11)
[2017-04-13] MEDS ORDERED: Insulin DETEMIR 100 UNIT/ML X5UNITS SQ SCH ×2 (21:00)
[2017-04-13] MEDS ORDERED: Gabapentin 400 MG CAPSULE PO SCH (21:00)
[2017-04-13] MEDS: Gabapentin 400 MG CAPSULE PO SCH (21:48)
[2017-04-13] MEDS: 0.9 % Sodium Chloride 1,000 ML IVC SCH (21:51)
[2017-04-13] MEDS ORDERED: Piperacillin/Tazobactam 3.375 GM in D5% in Water 50 ML IVPB SCH (22:00)
[2017-04-14 02:37] LABS: BUN/Creatinine Ratio 12 (6-26); Blood Urea Nitrogen 8 mg/dL (8-26); Calcium 8.2 mg/dL (8.6-10.8); Carbon Dioxide 22 mEq/L (19-29); Chloride 103 mEq/L (98-109); Glucose 162 mg/dL (70-99); Osmolality,Calculated 282 (280-300); Potassium 3.9 mEq/L (3.5-4.5); Sodium 135 mEq/L (136-145); eGFR For African Americans > 60 (> 60); eGFR For Non-African Americans > 60 (> 60)
[2017-04-14] MEDS: *HR* Heparin 5,000 UNIT/ML VIAL IVP PRN ×2 (03:29→10:07)
[2017-04-14] MEDS: *HR* HYDROmorphone (PF) 1 MG/ML SYRINGE IVP PRN ×4 (04:56→23:43)
[2017-04-14] MEDS ORDERED: Vancomycin 1,250 MG in D5% in Water 250 ML IVPB SCH (05:00)
[2017-04-14 07:20] LABS: Basophils % 0.2 %; Eosinophils % 0.1 %; Hematocrit 31.1 % (37.5-50.1); Hemoglobin 9.8 g/dL (12.9-16.9); Immature Granulocytes % 0.7 % (0-4); Lymphocytes # 2.4 K/mcL (0.6-4.6); Mean Corpuscular HGB Conc 31.5 g/dL (31.6-35.5); Mean Corpuscular Hemoglobin 27.2 pg (28.0-33.3); Mean Corpuscular Volume 86.4 fL (83.0-100.0); Mean Platelet Volume 9.9 fL (9.4-12.4); Monocytes # 2.7 K/mcL (0.0-1.3); Monocytes % 12.5 %; Neutrophils # 16.3 K/mcL (1.6-8.9); Platelet Count 420 K/mcL (140-400); Red Cell Distribution Width 13.2 % (11.5-14.5); Segmented Neutrophils % 75.5 %
[2017-04-14 07:22] LABS: INR 1.2; Prothrombin Time 12.5 Seconds (9.4-12.1)
[2017-04-14 07:24] LABS: Activated Partial Thrombo Time 46.9 Seconds (26.0-36.0)
[2017-04-14] MEDS ORDERED: Piperacillin/Tazobactam 3.375 GM in D5% in Water 50 ML IVPB SCH (08:00)
[2017-04-14] MEDS: Heparin 25,000 UNIT/500 ML D5W 25,000 UNIT/500 ML MLS IVC SCH (08:33)
[2017-04-14] MEDS ORDERED: Fenofibrate 54 MG TABLET PO SCH ×2 (09:00)
[2017-04-14] MEDS ORDERED: Aspirin Enteric Coated 81 MG Tablet PO SCH (09:00)
[2017-04-14] MEDS: Gabapentin 400 MG CAPSULE PO SCH ×2 (09:32→20:08)
[2017-04-14] MEDS: Sucralfate 1 GM TABLET PO SCH ×3 (09:33→20:08)
[2017-04-14] MEDS: Insulin LISPRO 300 UNITS/3 ML VIAL SQ SCH ×2 (09:43→12:24)
[2017-04-14] MEDS: 0.9 % Sodium Chloride 1,000 ML IVC SCH ×2 (09:55→11:13)
--- NOTE | 2017-04-14 12:23 | Vascular/[facility] Progress Note ---
Date of Encounter: 04/14/17 Time of Encounter: 11:48 - Assessment and plan (1) Type II diabetes mellitus Current Visit: No Status: Chronic Patient is receiving insulin therapy for chronic type 2 diabetes. 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 By the patient's history would appear that proximally 10 days to 2 weeks ago he had acute occlusion of the right lower extremity with progressive ischemia culminating in severe ischemia 2 days ago. The patient's overall prognosis for the right lower extremity is extremely poor. I reviewed with him the option of a primary [id number] amputation. He does not wish to proceed with this and wishes to have an attempt at thrombectomy. I explained his prognosis is poor such that even with a temporarily successful thrombectomy the neurologic improvement of the right lower extremity is questionable. He may still require an [id number] amputation. The patient wishes to proceed with an attempt at thrombectomy and is aware that he may require amputation in the near future if this is unsuccessful or the neurologic result is unsatisfactory. The IV heparin will be continued to the operating room. We'll make arrangements for him to go to the operating room tomorrow. There is no need for him to go early this morning to the operating room due to his very poor vascular prognosis. Results 04/14/17 07:06 04/14/17 02:15 Lab Results, Last 24 hours 04/14/17 04/14/17 04/14/17 02:15 02:15 07:06 WBC 21.6 H Hgb 9.8 L D Hct 31.1 L Plt Count 420 H INR APTT 41.2 H Sodium 135 L Potassium 3.9 Chloride 103 Carbon Dioxide 22 BUN 8 Creatinine 0.69 L Glucose 162 H Calcium 8.2 L 04/14/17 07:06 WBC Hgb Hct Plt Count INR 1.2 APTT 46.9 H Sodium Potassium Chloride Carbon Dioxide BUN Creatinine Glucose Calcium Consult Discharge Plan - Plan Referrals: Suleman Fonseca MD [Primary Care Provider] - 04/20/17 11:30 am Kel Tavares MD [Partnered Physician] - 05/04/17 11:30 am
--- NOTE | 2017-04-14 12:30 | Event Note ---
Date of Encounter: 04/14/17 Time of Encounter: 12:28 Patient is status post extensive iliofemoral popliteal thrombectomy. There is been no improvement of the right lower extremity physical exam. The patient still has significant pain requiring intravenous narcotics. There is no neuromuscular improvement following the thrombectomy. The right thigh remains warm the right calf Is cool and the right foot is cold. There are no Doppler signals at the ankle or the popliteal level. The patient has a fixed flexion contracture of the right knee. Due to the severity of his symptoms and severe ischemia and neuromuscular impairment it is imperative that he proceed on now with amputation. Therefore we will proceed with the initially recommended [id number]-[id number]-[id number] amputation later today. The heparin drip will be discontinued.
--- NOTE | 2017-04-14 13:21 | Internal Med Progress Note ---
Date of Encounter: 04/14/17 Time of Encounter: 08:50 - Assessment and plan (1) Arterial occlusion, lower extremity Current Visit: Yes Status: Acute Assessment and plan: Acute occlusion of the right lower extremity with progressive ischemia Status post right eizz-ibhgcxf-lztqnefku thrombectomy - no improvement following thrombectomy - postop day #1 Schedule for right AKA later today Continue Aspirin, Plavix, Zocor, IV Heparin has been discontinued for surgery today EKG - sinus rhythm with no acute ST-T changes Troponin - negative WBC - 21.6, likely due to limb ischemia Stress test (12/2016) - negative for ischemia Cardiology consult - recommended to continue current medication, patient is intermediate cardiovascular risk for vascular surgery Dr. Tavares following patient Cardiac telemetry, labs in a.m., monitor closely, patient is at high risk due to arterial occlusion (2) PVD (peripheral vascular disease) Current Visit: Yes Status: Chronic Assessment and plan: Severe bilateral lower extremity peripheral vascular occlusive disease - prior left BKA Extensive history of peripheral stents and thrombectomy in the past Multiple risk factors, noncompliance (3) DM2 (diabetes mellitus, type 2) Current Visit: Yes Status: Chronic Assessment and plan: Type 2 diabetes mellitus, insulin-dependent, hyperglycemia Continue insulin sliding scale, glucose checks, Levemir Qualifiers: Diabetes mellitus complication status: with circulatory complication Diabetes mellitus complication detail: with other circulatory complications Diabetes mellitus shelter insulin use: with shelter use Qualified Code(s) : E11.59 - Type 2 diabetes mellitus with other circulatory complications; Z79.4 - snf (current) use of insulin; Z79.4 - snf (current) use of insulin ; Z79.4 - rn long term care (current) use of insulin; Z79.4 - snf (current) use of insulin (4) CAD (coronary artery disease) Current Visit: No Status: Chronic Assessment and plan: Coronary artery disease status post CABG - stable Continue home dose of Aspirin, Plavix, Zocor, Lopressor Qualifiers: Coronary Disease-Associated Artery/Lesion type: bypass graft [place] vs. transplanted heart: [place] heart Associated angina: without angina Qualified Code(s): I25.810 - Atherosclerosis of coronary artery bypass graft(s) without angina pectoris (5) HTN (hypertension) Current Visit: Yes Status: Acute Assessment and plan: Essential hypertension, controlled, monitor Continue home dose of Lisinopril, Lopressor Qualifiers: Hypertension type: unspecified Qualified Code(s): I10 - Essential (primary ) hypertension (6) HLD (hyperlipidemia) Current Visit: No Status: Chronic Assessment and plan: Continue home dose of Zocor, TriCor Qualifiers: Hyperlipidemia type: mixed hyperlipidemia Qualified Code(s): E78.2 - Mixed hyperlipidemia (7) DVT prophylaxis Current Visit: No Status: Acute Assessment and plan: Patient has been on IV Heparin - Time Spent With Patient 25 - 35 minutes - Subjective Interval history: Examined this morning. Patient is awake and alert. Not in any distress. Denies chest pain or shortness of breath. No fever. Hemodynamically stable. Complains of pain in his right lower leg. Pain improves with IV pain medication. No other acute complaints or events. Admitted for ischemic right leg. Patient has occlusion of right iliac system as well as the right common femoral and superficial femoral and popliteal system. The patient underwent right pzln-snlragh-lfrzxjfmc arterial thrombectomy. There is no neuromuscular improvement following thrombectomy. Patient will undergo lzbmb-tlw-trno amputation later today. - Constitutional Vitals: Temp Pulse Resp BP Pulse Ox 99.9 F H 97 18 107/93 96 04/14/17 07:40 04/14/17 11:48 04/14/17 11:48 04/14/17 11:48 04/14/17 11:48 General appearance: Present: cooperative, disheveled, A&O X 3, no acute distress , answers questions appropriately - Head Head exam: Present: atraumatic - Eye Eye exam: Present: EOMI - ENT ENT exam: Present: mucous membranes dry - Respiratory Respiratory exam: Present: decreased breath sounds (Slightly decreased in both bases, otherwise clear to auscultation). Absent: accessory muscle use, chest wall tenderness, rales, rhonchi, wheezes, tachypnea - Cardiovascular Cardiovascular exam: Present: RRR, +S1, +S2 - GI/Abdominal GI/Abdominal exam: Present: soft. Absent: distended, firm, guarding, tenderness - Extremities Exam Extremities exam: Present: calf tenderness (On the right side), cyanotic (Right lower leg), radial pulses palpable and symmetrical. Absent: pedal edema Additional comments: Patient is status post left below-knee amputation. Absent pulses on the right lower leg. Right foot is cold to touch. Decreased color to the right foot and toes on the right side. Chronic ischemia of the right lower extremity. - Neurological Exam Neurological exam: Present: alert, oriented X3, no focal deficits. Absent: facial droop, speech deficit Internal Medicine: Result - Labs CBC & Chem 7: 04/14/17 07:06 04/14/17 02:15 Labs: Short CBC 04/14/17 Range/Units 07:06 WBC 21.6 H (4.3-11.1) K/mcL Hgb 9.8 L D (12.9-16.9) g/dL Hct 31.1 L (37.5-50.1) % Plt Count 420 H (140-400) K/mcL Neutrophils # 16.3 H (1.6-8.9) K/mcL BMP 04/14/17 02:15 Sodium 135 L Potassium 3.9 Chloride 103 Carbon Dioxide 22 BUN 8 Creatinine 0.69 L Glucose 162 H Calcium 8.2 L - ABG Interpretation ABG results: PT/INR, D-dimer PT 12.5 Seconds (9.4-12.1) H 04/14/17 07:06 Consult Discharge Plan - Plan Referrals: Suleman Fonseca MD [Primary Care Provider] - 04/20/17 11:30 am Kel Tavares MD [Partnered Physician] - 05/04/17 11:30 am
--- NOTE | 2017-04-14 16:05 | Anesthesia Progress Note ---
Date of Encounter: 04/14/17 Time of Encounter: 16:02 Anesthesia Note - Note Note: 04/14/17 16:02 patient underwent thrombectomy RLE on 04-13. He presents for right AKA today. There has been no interval change in his H&P over the past 24 hours
[2017-04-14] MEDS ORDERED: *HR* Propofol 200 MG/20 ML VIAL IVP ONE (16:25)
[2017-04-14] MEDS ORDERED: *HR* FentaNYL (PF) 100 MCG/2 ML VIAL ONE (16:25)
[2017-04-14] MEDS ORDERED: *HR* Succinylcholine 200 MG/10 ML VIAL IVP ONE (16:25)
[2017-04-14] MEDS ORDERED: *HR* Midazolam HCl 2 MG/2 ML VIAL ONE (16:25)
[2017-04-14] MEDS ORDERED: Lidocaine -MPF 4% 5 ML AMPUL ONE (16:25)
[2017-04-14] MEDS ORDERED: Lidocaine -MPF 2% 2 ML VIAL ONE (16:25)
[2017-04-14] MEDS ORDERED: *HR* Vasopressin 20 UNIT/ML VIAL ONE (16:39)
[2017-04-14] MEDS ORDERED: *HR* HYDROmorphone (PF) 1 MG/ML SYRINGE IVP PRN ×2 (17:27→19:20)
[2017-04-14] MEDS ORDERED: Ondansetron 4 MG/2 ML VIAL ONE (17:39)
[2017-04-14] MEDS ORDERED: Dexamethasone 4 MG/ML VIAL ONE (17:39)
[2017-04-14] MEDS ORDERED: *HR* HYDROmorphone 2 MG/ML SYRINGE ONE (18:17)
--- NOTE | 2017-04-14 18:23 | Operative Note ---
Date of procedure: 04/14/17 Pre-op diagnosis: ischemic right leg Post-op diagnosis: same Procedure: right AKA Complications: none Anesthesia: KRISTIN Surgeon: Kel Tavares Estimated blood loss (cc): 200 Specimen: right AKA Condition: stable Disposition: PACU Procedure in Detail: History Juan Carlos Slaughter is a 57-year-old white male who was admitted through the emergency room for right lower extremity ischemia. He had undergone an arterial thrombectomy yesterday of the right ileal and femoral and popliteal system. He had no favorable response to this surgery and his right leg remained ischemic and painful and nonfunctional. He now comes the operating room for an above-the- knee amputation. Procedure After informed consent was obtained the patient was taken to the operating room. General endotracheal anesthesia was established. The right lower extremity was sterilely prepped and draped. The right foot was placed in isolation bag. A timeout protocol was observed. A fishmouth type incision was made of the distal thigh. Dissection was carried down through the skin and through the fascia circumferentially. The muscle was inspected and found to be all viable in all compartments. It was then divided with the Bovie cautery. The dissection medially to reveal the artery revealed the arteries to be densely involved and without flow. These vessels were individually ligated and divided. The periosteum was raised around the distal femur. It was then divided with a sagittal saw. The edges of the femur rasped smooth. The wound was then copiously irrigated with antibiotic containing solution. Hemostasis was achieved. All tissue appeared viable. The fascial edges were then approximated using 2-0 Vicryl suture. Sanjana were used for the skin. A bulky dry dressing was then applied. This was secured with Kerlix roll and Romario wrap. There were no intraoperative complications. The patient tolerated the procedure well. The patient was extubated in the operating room and taken to the recovery room in stable condition.
--- NOTE | 2017-04-14 18:58 | Anesthesia Evaluation Post Op ---
Date of Encounter: 04/14/17 Time of Encounter: 18:57 - Vital Signs Vital Signs: Vital Signs/O2 Sat, Most Current Temp Pulse Resp BP Pulse Ox 98.1 F 98 20 114/63 96 04/14/17 18:27 04/14/17 18:46 04/14/17 18:46 04/14/17 18:46 04/14/17 18:46 - Lungs Lungs: Clear Ascult./Percussion - Airway Airway: Non-obstructed - Cardiovascular Regular Rate - Mental Status Mental Status: Alert & Oriented, Answers Appropriately - Pain Pain Scale: 0 Pain Scale used: Numeric (1 - 10) - Hydration Hydration: NPO, Welsh catheter - Discharge PostOp Status: Transfer Patient to floor
[2017-04-14] MEDS ORDERED: *HR* Dextrose 50 % in Water (Syg) 50 ML SYRINGE IVP PRN (19:20)
[2017-04-14] MEDS ORDERED: Naloxone 0.4 MG/ML INJ IVP PRN (19:20)
[2017-04-14] MEDS ORDERED: tiZANidine 4 MG TABLET PO PRN (19:20)
[2017-04-14] MEDS ORDERED: D5% in Water 1,000 ML IVC PRN (19:20)
[2017-04-14] MEDS ORDERED: Ondansetron 4 MG/2 ML VIAL IVP PRN ×2 (19:20)
[2017-04-14] MEDS ORDERED: Nitroglycerin 0.4 MG TAB.SUBL SL PRN (19:20)
[2017-04-14] MEDS ORDERED: Dextrose Gel 15 GM PO PRN ×2 (19:20)
[2017-04-14] MEDS: Insulin DETEMIR 100 UNIT/ML X5UNITS SQ SCH (20:09)
[2017-04-14] MEDS: Piperacillin/Tazobactam 3.375 GM in D5% in Water 50 ML IVPB SCH (23:42)
[2017-04-15] MEDS: 0.9 % Sodium Chloride 1,000 ML IVC SCH ×3 (04:00→23:10)
[2017-04-15] MEDS: Vancomycin 1,250 MG in D5% in Water 250 ML IVPB SCH ×2 (06:20→16:22)
[2017-04-15] MEDS: *HR* HYDROmorphone (PF) 1 MG/ML SYRINGE IVP PRN ×5 (06:20→19:49)
[2017-04-15] MEDS ORDERED: Aminoglycoside Consult 1 EACH MC ONE (07:32)
[2017-04-15] MEDS: Fenofibrate 54 MG TABLET PO SCH (08:19)
[2017-04-15] MEDS: Sucralfate 1 GM TABLET PO SCH ×4 (08:19→23:09)
[2017-04-15] MEDS: Gabapentin 400 MG CAPSULE PO SCH ×3 (08:19→19:47)
[2017-04-15] MEDS: Aspirin Enteric Coated 81 MG Tablet PO SCH (08:20)
[2017-04-15] MEDS: Insulin LISPRO 300 UNITS/3 ML VIAL SQ SCH ×3 (08:21→16:24)
[2017-04-15] MEDS: Piperacillin/Tazobactam 3.375 GM in D5% in Water 50 ML IVPB SCH ×2 (08:22→16:22)
--- NOTE | 2017-04-15 11:27 | Vascular/Endovas Progress Note ---
Date of Encounter: 04/15/17 Time of Encounter: 11:24 - Assessment and plan (1) Type II diabetes mellitus Current Visit: No Status: Chronic Qualifiers: Diabetes mellitus complication status: with neurologic complications Diabetes mellitus complication detail: with unspecified neuropathy Diabetes mellitus halfway insulin use: with terminal worker use Qualified Code(s): E11.40 - Type 2 diabetes mellitus with diabetic neuropathy, unspecified; Z79.4 - terminal worker (current) use of insulin; Z79.4 - terminal worker (current) use of insulin; Z79.4 - terminal worker (current) use of insulin; Z79.4 - terminal worker (current) use of insulin (2) Arterial occlusion, lower extremity Current Visit: Yes Status: Acute s/p right AKA-POD #1 pt hemodynamically stable. - Subjective Interval history: pt is POD # 1 from right AKA. C/o of right leg pain. Vital Signs, Last 4 Hours Temp Pulse Resp BP Pulse Ox 04/15/17 08:39 108 04/15/17 08:00 98.8 F 111 20 116/61 94 - Physical Examination General: Present: Conversant, No Apparent Distress Cardiac: Present: Reg Rate and Rhythm Lungs: Present: Normal Breath Sounds Neuro: Present: Alert and responsive, No focal deficits noted Vascular: Present: Surgical incisions (r aka dressing intact) Results 04/14/17 07:06 04/14/17 02:15 Consult Discharge Plan - Plan Referrals: Suleman Fonseca MD [Primary Care Provider] - 04/20/17 11:30 am Kel Tavares MD [Partnered Physician] - (follow up with Dr Tavares in 6 weeks)
--- NOTE | 2017-04-15 11:31 | Internal Med Progress Note ---
Date of Encounter: 04/15/17 Time of Encounter: 09:20 - Assessment and plan (1) Arterial occlusion, lower extremity Current Visit: Yes Status: Acute Assessment and plan: Acute occlusion of the right lower extremity with progressive ischemia - status post right sfzaq-bgk-jozu amputation - postop day #1, doing well postoperatively Initial right qexc-wynwffc-tamwlnfha thrombectomy done - no improvement following thrombectomy Continue Aspirin, Plavix, Zocor, IV Heparin has been discontinued IV antibiotics can be discontinued as leukocytosis likely due to limb ischemia, patient has no fever EKG - sinus rhythm with no acute ST-T changes Troponin - negative WBC - 21.6, likely due to limb ischemia Stress test (12/2016) - negative for ischemia Cardiology consult - recommended to continue current medication, patient is intermediate cardiovascular risk for vascular surgery Dr. Tavares following patient Cardiac telemetry, labs in a.m., monitor closely (2) PVD (peripheral vascular disease) Current Visit: Yes Status: Chronic Assessment and plan: Severe bilateral lower extremity peripheral vascular occlusive disease - prior left BKA Extensive history of peripheral stents and thrombectomy in the past - status post right AKA, postoperative day #1 Multiple risk factors, noncompliance (3) DM2 (diabetes mellitus, type 2) Current Visit: Yes Status: Chronic Assessment and plan: Type 2 diabetes mellitus, insulin-dependent, hyperglycemia Continue insulin sliding scale, glucose checks, Levemir Qualifiers: Diabetes mellitus complication status: with circulatory complication Diabetes mellitus complication detail: with other circulatory complications Diabetes mellitus assistant terminal manager insulin use: with assisted use Qualified Code(s) : E11.59 - Type 2 diabetes mellitus with other circulatory complications; Z79.4 - terminal press operator (current) use of insulin; Z79.4 - terminal press operator (current) use of insulin ; Z79.4 - senior living (current) use of insulin; Z79.4 - terminal press operator (current) use of insulin (4) CAD (coronary artery disease) Current Visit: No Status: Chronic Assessment and plan: Coronary artery disease status post CABG - stable Continue home dose of Aspirin, Plavix, Zocor, Lopressor Qualifiers: Coronary Disease-Associated Artery/Lesion type: bypass graft [place] vs. transplanted heart: [place] heart Associated angina: without angina Qualified Code(s): I25.810 - Atherosclerosis of coronary artery bypass graft(s) without angina pectoris (5) HTN (hypertension) Current Visit: Yes Status: Acute Assessment and plan: Essential hypertension, controlled, monitor Continue home dose of Lisinopril, Lopressor Qualifiers: Hypertension type: unspecified Qualified Code(s): I10 - Essential (primary ) hypertension (6) HLD (hyperlipidemia) Current Visit: No Status: Chronic Assessment and plan: Continue home dose of Zocor, TriCor Qualifiers: Hyperlipidemia type: mixed hyperlipidemia Qualified Code(s): E78.2 - Mixed hyperlipidemia - Time Spent With Patient 25 - 35 minutes - Subjective Interval history: Examined this morning. Patient is awake and alert. Not in any distress. Denies chest pain or shortness of breath. No fever. Hemodynamically stable. Complains of pain in his right leg surgical site. Pain improves with IV pain medication. No other acute complaints or events. Admitted for ischemic right leg. Patient has occlusion of right iliac system as well as the right common femoral and superficial femoral and popliteal system. The patient initially underwent right otwm-mvngyjk-estykgifk arterial thrombectomy. There was no neuromuscular improvement following thrombectomy. Patient underwent right above-knee amputation. Postop day #1. Doing well postoperatively. - Constitutional Vitals: Temp Pulse Resp BP Pulse Ox 98.8 F 108 20 116/61 94 04/15/17 08:00 04/15/17 08:39 04/15/17 08:00 04/15/17 08:00 04/15/17 08:00 General appearance: Present: cooperative, disheveled, A&O X 3, no acute distress , answers questions appropriately - Head Head exam: Present: atraumatic - Eye Eye exam: Present: EOMI - ENT ENT exam: Present: mucous membranes moist - Respiratory Respiratory exam: Present: decreased breath sounds (Slightly decreased in both bases, otherwise clear to auscultation). Absent: rales, rhonchi, tachypnea - Cardiovascular Cardiovascular exam: Present: RRR, +S1, +S2 - GI/Abdominal GI/Abdominal exam: Present: soft. Absent: distended, firm, guarding, tenderness - Extremities Exam Extremities exam: Present: radial pulses palpable and symmetrical. Absent: calf tenderness, cyanotic, pedal edema Additional comments: Left below-knee amputation. Right above-knee amputation, surgical dressing intact, no bleeding - Neurological Exam Neurological exam: Present: alert, oriented X3, no focal deficits. Absent: facial droop, speech deficit Internal Medicine: Result - Labs CBC & Chem 7: 04/14/17 07:06 04/14/17 02:15 - ABG Interpretation ABG results: PT/INR, D-dimer PT 12.5 Seconds (9.4-12.1) H 04/14/17 07:06 Consult Discharge Plan - Plan Referrals: Suleman Fonseca MD [Primary Care Provider] - 04/20/17 11:30 am Kel Tavares MD [Partnered Physician] - (follow up with Dr Tavares in 6 weeks)
[2017-04-15 12:18] LABS: Basophils # 0.1 K/mcL (0.0-0.2); Basophils % 0.2 %; Eosinophils # 0.2 K/mcL (0.0-0.6); Eosinophils % 0.8 %; Hematocrit 31.6 % (37.5-50.1); Hemoglobin 9.9 g/dL (12.9-16.9); Lymphocytes % 8.3 %; Mean Corpuscular HGB Conc 31.3 g/dL (31.6-35.5); Mean Corpuscular Hemoglobin 27.6 pg (28.0-33.3); Mean Platelet Volume 9.8 fL (9.4-12.4); Monocytes # 3.6 K/mcL (0.0-1.3); Monocytes % 14.9 %; Neutrophils # 18.1 K/mcL (1.6-8.9); Platelet Count 495 K/mcL (140-400); Red Blood Count 3.59 M/mcL (4.19-5.50); Red Cell Distribution Width 13.6 % (11.5-14.5); Segmented Neutrophils % 74.8 %
[2017-04-15 12:31] LABS: BUN/Creatinine Ratio 9 (6-26); Blood Urea Nitrogen 9 mg/dL (8-26); Carbon Dioxide 26 mEq/L (19-29); Chloride 102 mEq/L (98-109); Glucose 290 mg/dL (70-99); Osmolality,Calculated 289 (280-300); Potassium 4.5 mEq/L (3.5-4.5); Sodium 135 mEq/L (136-145); eGFR For African Americans > 60 (> 60); eGFR For Non-African Americans > 60 (> 60)
[2017-04-15 12:32] LABS: Calcium 8.1 mg/dL (8.6-10.8)
[2017-04-15 18:10] LABS: CK-BB (CK isoenzymes) 0 % (0-0); CK-MB (CK isoenzymes) 0 % (0-4); CK-MM (CK-isoenzymes) 100 % (96-100)
[2017-04-15] MEDS: Insulin DETEMIR 100 UNIT/ML X5UNITS SQ SCH (23:09)
[2017-04-16 03:25] LABS: Eosinophils % 0.8 %; Lymphocytes % 7.8 %; Red Blood Count 3.43 M/mcL (4.19-5.50); Red Cell Distribution Width 13.6 % (11.5-14.5)
[2017-04-16 03:27] LABS: Basophils # 0.1 K/mcL (0.0-0.2); Basophils % 0.2 %; Eosinophils # 0.2 K/mcL (0.0-0.6); Hematocrit 30.7 % (37.5-50.1); Hemoglobin 9.5 g/dL (12.9-16.9); Immature Granulocytes % 1.2 % (0-4); Lymphocytes # 2.1 K/mcL (0.6-4.6); Mean Corpuscular HGB Conc 30.9 g/dL (31.6-35.5); Mean Corpuscular Hemoglobin 27.7 pg (28.0-33.3); Mean Corpuscular Volume 89.5 fL (83.0-100.0); Monocytes # 4.1 K/mcL (0.0-1.3); Neutrophils # 20.4 K/mcL (1.6-8.9); Platelet Count 523 K/mcL (140-400)
[2017-04-16 03:38] LABS: BUN/Creatinine Ratio 10 (6-26); Blood Urea Nitrogen 11 mg/dL (8-26); Calcium 8.5 mg/dL (8.6-10.8); Carbon Dioxide 23 mEq/L (19-29); Chloride 103 mEq/L (98-109); Glucose 316 mg/dL (70-99); Osmolality,Calculated 293 (280-300); Potassium 4.5 mEq/L (3.5-4.5); Sodium 136 mEq/L (136-145); eGFR For African Americans > 60 (> 60); eGFR For Non-African Americans > 60 (> 60)
[2017-04-16 04:44] LABS: Platelet Estimate Increased (Normal)
[2017-04-16] MEDS: *HR* OxyCODONE Immed Rel 5 MG TABLET PO PRN ×2 (08:13→19:35)
[2017-04-16] MEDS: Fenofibrate 54 MG TABLET PO SCH (08:13)
[2017-04-16] MEDS: Acetaminophen 325 MG TABLET PO PRN (08:14)
[2017-04-16] MEDS: Gabapentin 400 MG CAPSULE PO SCH ×3 (08:14→21:12)
[2017-04-16] MEDS: Aspirin Enteric Coated 81 MG Tablet PO SCH (08:15)
[2017-04-16] MEDS: Insulin LISPRO 300 UNITS/3 ML VIAL SQ SCH ×3 (08:16→17:27)
[2017-04-16] MEDS: Piperacillin/Tazobactam 3.375 GM in D5% in Water 50 ML IVPB SCH ×3 (08:16→23:17)
[2017-04-16] MEDS: Sucralfate 1 GM TABLET PO SCH ×4 (08:16→21:12)
[2017-04-16 09:06] LABS: Bilirubin,Urine Negative (Negative); Blood,Urine Small (Negative); Clarity,Urine Cloudy (Clear); Color,Urine Yellow (Yellow); Glucose,Urine (UA) >=1000 mg/dL (Normal); Ketones,Urine 15 mg/dL (Negative); Leukocyte Esterase,Urine Small (Negative); Nitrite,Urine Negative (Negative); Protein,Urine Negative (Neg-Trace); Specific Gravity,Urine 1.024 (1.010-1.025); Urobilinogen,Urine Normal (Normal)
[2017-04-16 09:09] LABS: Bacteria,Urine None Seen per hpf (None-Few); Hyaline Casts,Urine None Seen per lpf (None-Few); Squamous Epithelial Cell,Urine Moderate per lpf (None-Few); WBC,Urine 50-100 per hpf (0-3)
[2017-04-16 09:23] LABS: Yeast,Urine Moderate per hpf (None Seen)
--- NOTE | 2017-04-16 09:28 | Internal Med Progress Note ---
Date of Encounter: 04/16/17 Time of Encounter: 09:15 - Assessment and plan (1) Arterial occlusion, lower extremity Current Visit: Yes Status: Acute Assessment and plan: Acute occlusion of the right lower extremity with progressive ischemia - status post right gqlku-iai-cvvz amputation - postop day #2, doing well postoperatively Initial right rxbp-gvqmnlt-wvxtjoxnt thrombectomy done - no improvement following thrombectomy Continue Aspirin, Plavix, Zocor Restart IV Zosyn due to elevated white count and fever, Tylenol PRN EKG - sinus rhythm with no acute ST-T changes Troponin - negative WBC - 21.6, likely due to limb ischemia Stress test (12/2016) - negative for ischemia Blood cultures/UA - pending Cardiology consult - recommended to continue current medication, patient is intermediate cardiovascular risk for vascular surgery Dr. Tavares following patient Cardiac telemetry, labs in a.m., monitor closely 04/16 - patient is drowsy but easily arousable. White count was elevated. Patient does have a fever. Zosyn has been restarted. No other acute events or complaints. (2) PVD (peripheral vascular disease) Current Visit: Yes Status: Chronic Assessment and plan: Severe bilateral lower extremity peripheral vascular occlusive disease - prior left BKA Extensive history of peripheral stents and thrombectomy in the past - status post right AKA, postoperative day #2 Multiple risk factors, noncompliance (3) DM2 (diabetes mellitus, type 2) Current Visit: Yes Status: Chronic Assessment and plan: Type 2 diabetes mellitus, insulin-dependent, hyperglycemia Continue insulin sliding scale, glucose checks, Levemir Qualifiers: Diabetes mellitus complication status: with circulatory complication Diabetes mellitus complication detail: with other circulatory complications Diabetes mellitus termite exterminator helper insulin use: with termite exterminator helper use Qualified Code(s) : E11.59 - Type 2 diabetes mellitus with other circulatory complications; Z79.4 - rat exterminator (current) use of insulin; Z79.4 - [facility] (current) use of insulin ; Z79.4 - [facility] (current) use of insulin; Z79.4 - [facility] (current) use of insulin (4) CAD (coronary artery disease) Current Visit: No Status: Chronic Assessment and plan: Coronary artery disease status post CABG - stable Continue home dose of Aspirin, Plavix, Zocor, Lopressor Qualifiers: Coronary Disease-Associated Artery/Lesion type: bypass graft [place] vs. transplanted heart: [place] heart Associated angina: without angina Qualified Code(s): I25.810 - Atherosclerosis of coronary artery bypass graft(s) without angina pectoris (5) HTN (hypertension) Current Visit: Yes Status: Acute Assessment and plan: Essential hypertension, controlled, monitor Continue home dose of Lisinopril, Lopressor Qualifiers: Hypertension type: unspecified Qualified Code(s): I10 - Essential (primary ) hypertension (6) HLD (hyperlipidemia) Current Visit: No Status: Chronic Assessment and plan: Continue home dose of Zocor, TriCor Qualifiers: Hyperlipidemia type: mixed hyperlipidemia Qualified Code(s): E78.2 - Mixed hyperlipidemia - Time Spent With Patient 25 - 35 minutes - Subjective Interval history: Examined this morning. Patient is drowsy, but easily arousable. Not in any distress. Denies chest pain or shortness of breath. Complains of mild pain in his right leg surgical site. Pain improves with IV pain medication. No other acute complaints or events. White count is elevated today. Patient also had a fever this morning. Hemodynamically stable. We will restart IV Zosyn. Blood cultures and UA pending. Admitted for ischemic right leg. Patient has occlusion of right iliac system as well as the right common femoral and superficial femoral and popliteal system. The patient initially underwent right fgrr-jjfaatg-whljedgtu arterial thrombectomy. There was no neuromuscular improvement following thrombectomy. Patient underwent right above-knee amputation. Postop day #2. Doing well postoperatively. - Constitutional Vitals: Temp Pulse Resp BP Pulse Ox 102.5 F H 111 22 132/74 92 04/16/17 07:50 04/16/17 07:50 04/16/17 07:50 04/16/17 07:50 04/16/17 07:50 General appearance: Present: cooperative, disheveled, A&O X 3, no acute distress , answers questions appropriately Exam: Patient is drowsy this morning but easily arousable. Able to verbalize and follows commands. - Head Head exam: Present: atraumatic - Eye Eye exam: Present: EOMI - ENT ENT exam: Present: mucous membranes moist - Respiratory Respiratory exam: Present: CTAB. Absent: accessory muscle use, chest wall tenderness, rales, rhonchi, wheezes, tachypnea - Cardiovascular Cardiovascular exam: Present: RRR, +S1, +S2 - GI/Abdominal GI/Abdominal exam: Present: soft. Absent: distended, firm, guarding, tenderness - Extremities Exam Extremities exam: Present: radial pulses palpable and symmetrical. Absent: cyanotic Additional comments: Left below-knee amputation. Right above-knee amputation, surgical dressing intact, no bleeding - Neurological Exam Neurological exam: Present: alert, CN II-XII intact, oriented X3, no focal deficits. Absent: facial droop, speech deficit Additional comments: Patient is slightly drowsy this morning but easily arousable. He is drowsy likely due to the IV pain medication. The following commands and able to verbalize. No focal neurological deficits. Internal Medicine: Result - Labs CBC & Chem 7: 04/16/17 02:56 04/16/17 02:56 Labs: Short CBC 04/15/17 04/16/17 Range/Units 12:00 02:56 WBC 24.2 H 27.2 H (4.3-11.1) K/mcL Hgb 9.9 L 9.5 L (12.9-16.9) g/dL Hct 31.6 L 30.7 L (37.5-50.1) % Plt Count 495 H 523 H (140-400) K/mcL Neutrophils # 18.1 H 20.4 H (1.6-8.9) K/mcL BMP 04/15/17 04/16/17 12:00 02:56 Sodium 135 L 136 Potassium 4.5 4.5 Chloride 102 103 Carbon Dioxide 26 23 BUN 9 11 Creatinine 0.97 1.06 Glucose 290 H 316 H Calcium 8.1 L 8.5 L Urine 04/16/17 Range/Units 09:00 Urine Color Yellow (Yellow) Urine Clarity Cloudy A (Clear) Urine pH 6.0 (5.0-8.0) pH Units Ur Specific [place] 1.024 (1.010-1.025) Urine Protein Negative (Neg-Trace) mg/dL Urine Glucose (UA) >=1000 H (Normal) mg/dL - ABG Interpretation ABG results: PT/INR, D-dimer PT 12.5 Seconds (9.4-12.1) H 04/14/17 07:06 - VTE Documentation of Mechanical Device: Intermittent pneumatic compression device Consult Discharge Plan - Plan Referrals: Suleman Fonseca MD [Primary Care Provider] - 04/20/17 11:30 am Kel Tavares MD [Partnered Physician] - (follow up with Dr Tavares in 6 weeks)
[2017-04-16 10:54] LABS: ABG Base Excess 4 mEq/L (-2 to 3); ABG HCO3 30 mEq/L (21-27); ABG Oxygen Saturation 93 % (95-98); ABG PCO2 47 mmHg (35-45); ABG PH 7.41 pH Units (7.32-7.45); ABG PO2 67 mmHg (85-104); ABG TCO2 31 mEq/L (20-26)
[2017-04-16] MEDS: 0.9 % Sodium Chloride 1,000 ML IVC SCH (11:08)
[2017-04-16 11:39] LABS: Magnesium 1.6 mg/dL (1.6-2.6)
[2017-04-16] MEDS ORDERED: *HR* HYDROmorphone (PF) 1 MG/ML SYRINGE IVP ONE (13:30)
[2017-04-16] MEDS ORDERED: *HR* HYDROmorphone (PF) 1 MG/ML SYRINGE ONE (13:31)
--- NOTE | 2017-04-16 14:03 | Vascular/Endovas Progress Note ---
Date of Encounter: 04/16/17 Time of Encounter: 14:01 - Assessment and plan (1) Type II diabetes mellitus Current Visit: No Status: Chronic Qualifiers: Qualified Code(s): E11.40 - Type 2 diabetes mellitus with diabetic neuropathy , unspecified; Z79.4 - FDC (current) use of insulin; Z79.4 - song and dance performer ( current) use of insulin; Z79.4 - FDC (current) use of insulin; Z79.4 - song and dance performer (current) use of insulin (2) Arterial occlusion, lower extremity Current Visit: Yes Status: Acute s/p right AKA-POD #2 pt hemodynamically stable. Patient appears to be reacting to accumulation of narcotics and agree that intravenous narcotic should be held. The amputation site is clean and dry. It is healing well. We will begin daily dressing changes starting today. The patient may be transferred to an extended care facility when the bed is available. The patient is to follow up with me in 6 weeks. - Subjective Interval history: pt is POD # 2 from right AKA. C/o of right leg pain. He has had significant complaints of pain and pain out of proportion to physical findings regarding the lower extremity. He is receiving a significant amount of narcotics which have been diminished beginning earlier today because of his overall drowsiness. The patient is easily awakened but remains very drowsy and sleepy. Vital Signs, Last 4 Hours Temp Pulse Resp BP Pulse Ox 04/16/17 11:38 98.4 F 87 20 127/80 98 04/16/17 10:20 99.2 F - Physical Examination General: Present: Other (Patient is drowsy and sleepy) HEENT: Present: Atraumatic Cardiac: Present: Reg Rate and Rhythm Vascular: Present: Amputation(s) (Right jtoyy-yqo-aeoa amputation dressing was removed. The skin flaps are intact and there is no signs of ischemia. There is no discoloration of the skin. There is no edema. There is no signs of cellulitis or drainage.) - VTE Documentation of Mechanical Device: Intermittent pneumatic compression device Results 04/16/17 02:56 04/16/17 02:56 Lab Results, Last 24 hours 04/16/17 04/16/17 02:56 02:56 WBC 27.2 H Hgb 9.5 L Hct 30.7 L Plt Count 523 H Sodium 136 Potassium 4.5 Chloride 103 Carbon Dioxide 23 BUN 11 Creatinine 1.06 Glucose 316 H Calcium 8.5 L Magnesium 1.6 Consult Discharge Plan - Plan Additional Instructions: Daily dry to dry dressing changes to right jkpsl-xvo-olra amputation. The dressing should be secured with an Romario wrap. The right AKA site may be wet 5 days following surgery. Referrals: Suleman Fonseca MD [Primary Care Provider] - 04/20/17 11:30 am Kel Tavares MD [Partnered Physician] - (follow up with Dr Tavares in 6 weeks)
[2017-04-16] MEDS: Insulin DETEMIR 100 UNIT/ML X5UNITS SQ SCH (21:13)
[2017-04-17] MEDS: 0.9 % Sodium Chloride 1,000 ML IVC SCH ×2 (00:45→14:54)
[2017-04-17 03:02] LABS: Basophils % 0.3 %; Hemoglobin 9.3 g/dL (12.9-16.9); Red Cell Distribution Width 13.5 % (11.5-14.5)
[2017-04-17 03:03] LABS: Basophils # 0.1 K/mcL (0.0-0.2); Immature Granulocytes % 1.4 % (0-4); Lymphocytes % 7.6 %; Mean Corpuscular Hemoglobin 27.4 pg (28.0-33.3); Mean Corpuscular Volume 88.5 fL (83.0-100.0); Mean Platelet Volume 9.8 fL (9.4-12.4); Platelet Count 583 K/mcL (140-400); Red Blood Count 3.39 M/mcL (4.19-5.50); Segmented Neutrophils % 75.2 %
[2017-04-17 03:04] LABS: Eosinophils # 0.5 K/mcL (0.0-0.6); Eosinophils % 1.9 %; Lymphocytes # 2.1 K/mcL (0.6-4.6); Monocytes # 3.8 K/mcL (0.0-1.3); Monocytes % 13.6 %
[2017-04-17 03:34] LABS: Platelet Estimate Increased (Normal)
[2017-04-17] MEDS ORDERED: Magnesium Sulfate 2 GM in D5% in Water 100 ML IVPB ONE (07:27)
[2017-04-17] MEDS: Sucralfate 1 GM TABLET PO SCH ×4 (07:47→21:13)
[2017-04-17] MEDS: Gabapentin 400 MG CAPSULE PO SCH (07:48)
[2017-04-17] MEDS: Fenofibrate 54 MG TABLET PO SCH (07:49)
[2017-04-17] MEDS: Aspirin Enteric Coated 81 MG Tablet PO SCH (07:49)
[2017-04-17] MEDS: *HR* OxyCODONE Immed Rel 5 MG TABLET PO PRN ×3 (07:50→21:15)
[2017-04-17] MEDS: Insulin LISPRO 300 UNITS/3 ML VIAL SQ SCH ×3 (07:59→16:55)
[2017-04-17] MEDS: Piperacillin/Tazobactam 3.375 GM in D5% in Water 50 ML IVPB SCH ×2 (08:14→17:16)
[2017-04-17] MEDS: Acetaminophen 325 MG TABLET PO PRN ×2 (10:53→16:53)
[2017-04-17] MEDS ORDERED: *HR* Morphine 2 MG/ML SYRINGE IVP ONE (13:02)
--- NOTE | 2017-04-17 13:26 | Internal Med Progress Note ---
Date of Encounter: 04/17/17 Time of Encounter: 08:30 - Assessment and plan (1) Arterial occlusion, lower extremity Current Visit: Yes Status: Acute Assessment and plan: Acute occlusion of the right lower extremity with progressive ischemia - status post right hhtcl-rke-pgxp amputation - postop day #3, doing well postoperatively Initial right yzen-djqppka-psheicfmz thrombectomy done - no improvement following thrombectomy Continue Aspirin, Plavix, Zocor Restart IV Zosyn due to elevated white count and fever, Tylenol PRN EKG - sinus rhythm with no acute ST-T changes Troponin - negative WBC - 21.6, likely due to limb ischemia Stress test (12/2016) - negative for ischemia Blood cultures/UA - pending Cardiology consult - recommended to continue current medication, patient is intermediate cardiovascular risk for vascular surgery Dr. Tavares following patient Cardiac telemetry, labs in a.m., monitor closely 04/16 - patient is drowsy but easily arousable. White count was elevated. Patient does have a fever. Zosyn has been restarted. No other acute events or complaints. 04/17 - awake and alert. Complains of pain over right lower extremity surgical site. Continue oxycodone for pain. Anticipate discharge to ECF soon. Leukocytosis persistent. No fever overnight. (2) PVD (peripheral vascular disease) Current Visit: Yes Status: Chronic Assessment and plan: Severe bilateral lower extremity peripheral vascular occlusive disease - prior left BKA Extensive history of peripheral stents and thrombectomy in the past - status post right AKA, postoperative day #3 Multiple risk factors, noncompliance (3) DM2 (diabetes mellitus, type 2) Current Visit: Yes Status: Chronic Assessment and plan: Type 2 diabetes mellitus, insulin-dependent, hyperglycemia Continue insulin sliding scale, glucose checks, Levemir Qualifiers: Diabetes mellitus complication status: with circulatory complication Diabetes mellitus complication detail: with other circulatory complications Diabetes mellitus termite exterminator helper insulin use: with custodial use Qualified Code(s) : E11.59 - Type 2 diabetes mellitus with other circulatory complications; Z79.4 - vermin exterminator (current) use of insulin; Z79.4 - jail (current) use of insulin ; Z79.4 - jail (current) use of insulin; Z79.4 - vermin exterminator (current) use of insulin (4) CAD (coronary artery disease) Current Visit: No Status: Chronic Assessment and plan: Coronary artery disease status post CABG - stable Continue home dose of Aspirin, Plavix, Zocor, Lopressor Qualifiers: Coronary Disease-Associated Artery/Lesion type: bypass graft [place] vs. transplanted heart: [place] heart Associated angina: without angina Qualified Code(s): I25.810 - Atherosclerosis of coronary artery bypass graft(s) without angina pectoris (5) HTN (hypertension) Current Visit: Yes Status: Acute Assessment and plan: Essential hypertension, controlled, monitor Continue home dose of Lisinopril, Lopressor Qualifiers: Hypertension type: unspecified Qualified Code(s): I10 - Essential (primary ) hypertension (6) HLD (hyperlipidemia) Current Visit: No Status: Chronic Assessment and plan: Continue home dose of Zocor, TriCor Qualifiers: Hyperlipidemia type: mixed hyperlipidemia Qualified Code(s): E78.2 - Mixed hyperlipidemia - Time Spent With Patient 25 - 35 minutes - Subjective Interval history: Examined this morning. Patient is awake and alert. Not in any distress. Denies chest pain or shortness of breath. Complains of pain in his right leg surgical site. Pain improves with IV pain medication. No other acute complaints or events. White count is elevated today. No fever overnight. Hemodynamically stable. Continue IV Zosyn. Cultures pending. Admitted for ischemic right leg. Patient has occlusion of right iliac system as well as the right common femoral and superficial femoral and popliteal system. The patient initially underwent right qpho-pqunlwg-seyyvpuxs arterial thrombectomy. There was no neuromuscular improvement following thrombectomy. Patient underwent right above-knee amputation. Postop day #3. Doing well postoperatively. - Constitutional Vitals: Temp Pulse Resp BP Pulse Ox 99.7 F H 91 18 114/71 93 04/17/17 11:38 04/17/17 11:38 04/17/17 11:38 04/17/17 11:38 04/17/17 11:38 General appearance: Present: cooperative, disheveled, A&O X 3, no acute distress , answers questions appropriately Exam: Able to verbalize and follows commands. - Head Head exam: Present: atraumatic - Eye Eye exam: Present: EOMI - ENT ENT exam: Present: mucous membranes moist - Respiratory Respiratory exam: Present: CTAB. Absent: accessory muscle use, chest wall tenderness, rales, rhonchi, wheezes, tachypnea - Cardiovascular Cardiovascular exam: Present: RRR, +S1, +S2 - GI/Abdominal GI/Abdominal exam: Present: soft. Absent: distended, firm, guarding, tenderness - Extremities Exam Extremities exam: Present: radial pulses palpable and symmetrical. Absent: cyanotic Additional comments: Left below-knee amputation. Right above-knee amputation, surgical dressing intact, no bleeding - Neurological Exam Neurological exam: Present: alert, CN II-XII intact, oriented X3, no focal deficits. Absent: facial droop, speech deficit Internal Medicine: Result - Labs CBC & Chem 7: 04/17/17 02:37 04/16/17 02:56 Labs: Short CBC 04/17/17 Range/Units 02:37 WBC 27.9 H (4.3-11.1) K/mcL Hgb 9.3 L (12.9-16.9) g/dL Hct 30.0 L (37.5-50.1) % Plt Count 583 H (140-400) K/mcL Neutrophils # 21.0 H (1.6-8.9) K/mcL - ABG Interpretation ABG results: ABG ABG pH 7.41 pH Units (7.32-7.45) 04/16/17 10:37 ABG pCO2 47 mmHg (35-45) H 04/16/17 10:37 ABG pO2 67 mmHg (85-104) L 04/16/17 10:37 ABG O2 Saturation 93 % (95-98) L 04/16/17 10:37 PT/INR, D-dimer PT 12.5 Seconds (9.4-12.1) H 04/14/17 07:06 - VTE Documentation of Mechanical Device: Intermittent pneumatic compression device Consult Discharge Plan - Plan Additional Instructions: Daily dry to dry dressing changes to right xvhky-bng-mvri amputation. The dressing should be secured with an Romario wrap. The right AKA site may be wet 5 days following surgery. Referrals: Suleman Fonseca MD [Primary Care Provider] - 04/20/17 11:30 am Kel Tavares MD [Partnered Physician] - (follow up with Dr Tavares in 6 weeks)
[2017-04-17] MEDS: Gabapentin 300 MG CAPSULE PO SCH ×2 (14:48→21:14)
[2017-04-17] MEDS: Insulin DETEMIR 100 UNIT/ML X5UNITS SQ SCH (21:14)
[2017-04-18] MEDS: Piperacillin/Tazobactam 3.375 GM in D5% in Water 50 ML IVPB SCH ×2 (00:20→08:29)
[2017-04-18] MEDS: 0.9 % Sodium Chloride 1,000 ML IVC SCH (03:25)
[2017-04-18] MEDS: *HR* OxyCODONE Immed Rel 5 MG TABLET PO PRN ×2 (03:25→09:27)
[2017-04-18 03:29] LABS: Basophils # 0.1 K/mcL (0.0-0.2); Basophils % 0.2 %; Eosinophils # 0.7 K/mcL (0.0-0.6); Eosinophils % 2.9 %; Hematocrit 28.5 % (37.5-50.1); Hemoglobin 9.3 g/dL (12.9-16.9); Immature Granulocytes % 0.9 % (0-4); Lymphocytes # 2.8 K/mcL (0.6-4.6); Lymphocytes % 11.1 %; Mean Corpuscular HGB Conc 32.6 g/dL (31.6-35.5); Mean Corpuscular Hemoglobin 27.8 pg (28.0-33.3); Mean Corpuscular Volume 85.3 fL (83.0-100.0); Mean Platelet Volume 9.5 fL (9.4-12.4); Monocytes # 2.7 K/mcL (0.0-1.3); Monocytes % 10.9 %; Neutrophils # 18.4 K/mcL (1.6-8.9); Nucleated Red Blood Cells 0.1 /100 WBC (0); Platelet Count 627 K/mcL (140-400); Red Blood Count 3.34 M/mcL (4.19-5.50); Red Cell Distribution Width 13.3 % (11.5-14.5)
[2017-04-18 03:44] LABS: BUN/Creatinine Ratio 12 (6-26); Blood Urea Nitrogen 9 mg/dL (8-26); Calcium 8.5 mg/dL (8.6-10.8); Carbon Dioxide 24 mEq/L (19-29); Chloride 105 mEq/L (98-109); Glucose 136 mg/dL (70-99); Magnesium 1.6 mg/dL (1.6-2.6); Osmolality,Calculated 289 (280-300); Potassium 3.7 mEq/L (3.5-4.5); Sodium 139 mEq/L (136-145); eGFR For African Americans > 60 (> 60); eGFR For Non-African Americans > 60 (> 60)
[2017-04-18 08:05] LABS: CK Total (Ck Isoenzymes) 2893 U/L (20-200)
[2017-04-18] MEDS: Sucralfate 1 GM TABLET PO SCH ×2 (08:27→12:15)
[2017-04-18] MEDS: Aspirin Enteric Coated 81 MG Tablet PO SCH (08:31)
[2017-04-18] MEDS: Gabapentin 300 MG CAPSULE PO SCH (08:34)
[2017-04-18] MEDS: Fenofibrate 54 MG TABLET PO SCH (08:35)
[2017-04-18] MEDS: Insulin LISPRO 300 UNITS/3 ML VIAL SQ SCH ×2 (09:34→12:12)
--- NOTE | 2017-04-18 09:44 | Vascular/Endovas Progress Note ---
Date of Encounter: 04/18/17 Time of Encounter: 08:45 - Assessment and plan (1) Type II diabetes mellitus Current Visit: No Status: Chronic Patient has chronic type 2 diabetes. This is under medical treatment. Qualifiers: Diabetes mellitus complication status: with neurologic complications Diabetes mellitus complication detail: with unspecified neuropathy Diabetes mellitus intermediate project manager insulin use: with intermediate project manager use Qualified Code(s): E11.40 - Type 2 diabetes mellitus with diabetic neuropathy, unspecified; Z79.4 - superintendent container terminal (current) use of insulin; Z79.4 - snf (current) use of insulin; Z79.4 - superintendent container terminal (current) use of insulin; Z79.4 - snf (current) use of insulin (2) Arterial occlusion, lower extremity Current Visit: Yes Status: Acute s/p right AKA-POD #4 pt hemodynamically stable. The patient is back to his normal baseline mental status. He is awake and alert. The right udlza-ove-vuvv amputation site can be cared for on a regular dry dressing change daily. The patient has persistent elevation of his white count but his urine and blood cultures are negative. The amputation site is without signs of infection. The patient does not demonstrate sepsis. The patient may be transferred to an extended care facility when the bed is available. The patient is to follow up with me in 6 weeks. - Subjective Interval history: pt is POD # 4from right AKA. C/o of right leg pain. The patient is much more awake and alert today. He appears back to his normal mental status. Vital Signs, Last 4 Hours Temp Pulse Resp BP Pulse Ox 04/18/17 09:01 89 04/18/17 07:33 99.4 F 89 18 153/77 94 - Physical Examination General: Present: Conversant, No Apparent Distress Vascular: Present: Amputation(s) (Patient has dry dressing on right above-the- knee amputation. This is being changed on a daily basis by the nursing staff.) - VTE Documentation of Mechanical Device: Intermittent pneumatic compression device Results 04/18/17 03:18 04/18/17 03:18 Lab Results, Last 24 hours 04/18/17 04/18/17 03:18 03:18 WBC 24.9 H Hgb 9.3 L Hct 28.5 L Plt Count 627 H Sodium 139 Potassium 3.7 Chloride 105 Carbon Dioxide 24 BUN 9 Creatinine 0.78 Glucose 136 H Calcium 8.5 L Magnesium 1.6 Consult Discharge Plan - Plan Additional Instructions: Daily dry to dry dressing changes to right xeeuo-bmf-tbmm amputation. The dressing should be secured with an Romario wrap. The right AKA site may be wet 5 days following surgery. Referrals: Suleman Fonseca MD [Primary Care Provider] - 04/20/17 11:30 am Kel Tavares MD [Partnered Physician] - (follow up with Dr Tavares in 6 weeks)
[2017-04-18 11:29] VITALS: BP 141/82
--- NOTE | 2017-04-18 11:47 | Discharge Summary ---
Date of Encounter: 04/18/17 Time of Encounter: 10:50 - Discharge Diagnosis (1) Arterial occlusion, lower extremity Priority: Primary Status: Acute Comments: Acute occlusion of the right lower extremity with progressive ischemia - status post right riamf-upo-bifz amputation - postop day #4, doing well postoperatively Initial right eejg-quzvfdj-xpyczerjn thrombectomy done - no improvement following thrombectomy Continue Aspirin, Plavix, Zocor, Tylenol PRN EKG - sinus rhythm with no acute ST-T changes Troponin - negative WBC - 24.9, likely reactive leukocytosis - no fever and no tachycardia, hemodynamically stable, no signs of sepsis Stress test (12/2016) - negative for ischemia Blood cultures/UA - negative Cardiology consult - recommended to continue current medication, patient is intermediate cardiovascular risk for vascular surgery Dr. Tavares following patient 04/16 - patient is drowsy but easily arousable. White count was elevated. Patient does have a fever. Zosyn has been restarted. No other acute events or complaints. 04/17 - awake and alert. Complains of pain over right lower extremity surgical site. Continue oxycodone for pain. Anticipate discharge to ECF soon. Leukocytosis persistent. No fever overnight. 04/18 - back to baseline mental status. No fever. Hemodynamically stable. Pain is controlled with pain medication. Dr. Tavares okay with discharge. Follow-up as outpatient in 6 weeks. Stable for discharge to ECF today. Continue incentive spirometry. Continue all home meds. (2) PVD (peripheral vascular disease) Priority: Primary Status: Chronic Comments: Severe bilateral lower extremity peripheral vascular occlusive disease - prior left BKA Extensive history of peripheral stents and thrombectomy in the past - status post right AKA, postoperative day #4 Multiple risk factors, noncompliance (3) DM2 (diabetes mellitus, type 2) Priority: Primary Status: Chronic Comments: Type 2 diabetes mellitus, insulin-dependent, hyperglycemia Continue home dose of insulin Qualifiers: Diabetes mellitus complication status: with circulatory complication Diabetes mellitus complication detail: with other circulatory complications Diabetes mellitus termite control technician insulin use: with termite control technician use Qualified Code(s) : E11.59 - Type 2 diabetes mellitus with other circulatory complications; Z79.4 - halfway (current) use of insulin; Z79.4 - halfway (current) use of insulin ; Z79.4 - halfway (current) use of insulin; Z79.4 - halfway (current) use of insulin (4) CAD (coronary artery disease) Priority: Primary Status: Chronic Comments: Coronary artery disease status post CABG - stable Continue home dose of Aspirin, Plavix, Zocor, Lopressor Qualifiers: Coronary Disease-Associated Artery/Lesion type: bypass graft [place] vs. transplanted heart: [place] heart Associated angina: without angina Qualified Code(s): I25.810 - Atherosclerosis of coronary artery bypass graft(s) without angina pectoris (5) HTN (hypertension) Priority: Primary Status: Acute Comments: Essential hypertension, controlled, monitor Continue home dose of Lisinopril, Lopressor Qualifiers: Hypertension type: unspecified Qualified Code(s): I10 - Essential (primary ) hypertension (6) HLD (hyperlipidemia) Priority: Primary Status: Chronic Comments: Continue home dose of Zocor, TriCor Qualifiers: Hyperlipidemia type: mixed hyperlipidemia Qualified Code(s): E78.2 - Mixed hyperlipidemia - Discharge Medications Prescriptions: OxyCODONE Immed Rel [Roxicodone 5 MG] 5 mg PO Q6HR PRN #10 tablet PRN Reason: Moderate Pain (4-6) Amitriptyline [Elavil] 75 mg PO HS #30 tablet Amoxicillin/Clavulanate [Augmentin] 875 mg PO BIDWM 10 Days #20 tablet Gabapentin [Neurontin] 300 mg PO TID #30 capsule Phenytoin ER [Dilantin ER] 100 mg PO TID #30 capsule Sertraline [Zoloft] 100 mg PO DAILY #30 tablet Tizanidine HCl 4 mg PO TID PRN #10 tablet PRN Reason: Muscle Spasm Home Medications: Clopidogrel [Plavix] 75 mg PO DAILY 02/04/15 [History] Nitroglycerin [Nitrostat] 0.4 mg SL Q5M PRN 08/06/16 [History] Simvastatin [Zocor] 40 mg PO HS 08/06/16 [History] Aspirin Enteric Coated [Aspirin EC] 81 mg PO DAILY 02/09/17 [History] Fenofibrate Nanocrystallized [Tricor] 145 mg PO DAILY 02/09/17 [History] Insulin ASPART [NovoLOG] 0 unit SQ TIDWM 02/09/17 [History] Insulin Glargine,Hum.rec.anlog [Toujeo Solostar] 60 units SQ DAILY 02/09/17 [ History] Lipase/Protease/Amylase [Baldo Lay 12,000 Units Capsule] 1 each PO AD 02/09/17 [ History] Lipase/Protease/Amylase [Baldo Lay 24,000 Units Capsule] 1 each PO TIDWM [History] Lisinopril 2.5 mg PO DAILY 02/09/17 [History] Metoprolol [Lopressor] 12.5 mg PO BID 02/09/17 [History] Omeprazole [PriLOSEC] 40 mg PO DAILY 02/09/17 [History] Sucralfate [Carafate] 1 gm PO QIDAC #120 tab 02/21/17 [Rx] Docusate [Colace] 100 mg PO BID #60 capsule 02/28/17 [Rx] OxyCODONE/APAP 10/325 [Percocet 10/325 MG] 1 each PO Q4HR PRN #42 tablet [Rx] Amitriptyline [Elavil] 75 mg PO HS #30 tablet 04/18/17 [Rx] Amoxicillin/Clavulanate [Augmentin] 875 mg PO BIDWM 10 Days #20 tablet 04/18/17 [Rx] Gabapentin [Neurontin] 300 mg PO TID #30 capsule 04/18/17 [Rx] OxyCODONE Immed Rel [Roxicodone 5 MG] 5 mg PO Q6HR PRN #10 tablet 04/18/17 [Rx] Phenytoin ER [Dilantin ER] 100 mg PO TID #30 capsule 04/18/17 [Rx] Sertraline [Zoloft] 100 mg PO DAILY #30 tablet 04/18/17 [Rx] Tizanidine HCl 4 mg PO TID PRN #10 tablet 04/18/17 [Rx] Allergies/Adverse Reactions: 3 Allergy/AdvReac Type Severity Reaction Status Date / Time No Known Allergies Allergy Verified 04/12/17 11:16 Date of admission: 04/13/17 08:59 Primary care physician: Suleman Fonseca MD Consults: 04/14/17 19:20 Consult to Physical Therapy [CONS] Routine Comment: Evaluate, develop and implement POC Reason for Consult: s/p r AKA hx of left BKA Consult to Auricular Acupuncturist [CONS] Routine Reason for SW Consult: post op amputation 04/15/17 09:06 Consult to Occupational Therapy [CONS] Routine Comment: Evaluate, develop and implement POC Reason for Consult: Discharge planning Anticipated date of discharge: 04/18/17 - Patient Status Disposition: Transfer SNF Condition: Good Functional capacity at discharge: wheelchair bound Overall status at discharge: patient is progressing back to baseline - Discharge Instructions Follow Up With: Suleman Fonseca MD [Primary Care Provider] - (PATIENT IS GOING TO [facility] NO PCP APPOINTMENT NEEDED) Kel Tavares MD [Partnered Physician] - 06/01/17 1:00 pm (follow up with Dr Tavares in 6 weeks) Additional Instructions: Daily dry to dry dressing changes to right hapdq-ntr-bbbv amputation. The dressing should be secured with an Romario wrap. The right AKA site may be wet 5 days following surgery. - Diet and Activity Activity: as per physical therapy, increase activity as tolerated, resume usual activities as tolerated Diet: low fat, low cholesterol, low salt diet Hospital course: Mr. Slaughter is a 57 year old male with past medical history of coronary artery disease, CVA, diabetes, hyperlipidemia, hypertension, CHF, peripheral disease, anxiety and depression. He presented to the ED with complaints of right leg pain. Pain and been getting worse about 2 days prior to arrival. He described it as sharp and aching and burning. It is located from the knee down to the right foot. He also noticed some swelling. CT angiogram of the lower extremity shows arterial occlusion in the right common iliac artery and popliteal artery. Vascular surgery was consulted. Patient was admitted for acute arterial occlusion of the lower extremity on the right side. He was started on IV heparin. We continued his aspirin and Plavix and statin. Patient had a left below-knee amputation about 2 years ago for similar complaints. Dr. Tavares has been following the patient. Patient initially underwent right ilio-femoral popliteal thrombectomy. This did not show any improvement, and the right lower extremity was cold to touch and patient continued to have pain. Patient initially did not want amputation of the right lower extremity, but he eventually agreed. Patient underwent right above-the- knee amputation, and tolerated procedure well. Aspirin and Plavix and Zocor were continued. Patient continued to have persistent leukocytosis. He also had temperature spikes. He was on Zosyn empirically. Cultures are negative. At this time patient has not had any fever spike in more than 48 hours. No tachycardia and he is hemodynamically stable. Patient is at baseline mental status. No other acute events or complications during his stay. Dressing change and surgical site was done and site looks okay. Patient has been explained about his condition and plan of care detail. He understood and agreed. No unanswered questions. Discussed with Dr. Tavares, and he is states patient is okay for discharge to [facility] today, and can follow up as outpatient in 6 weeks. Advised to return if any new symptoms develop. Follow up with primary care physician. Patient has been advised to continue all medications as per discharge instructions. He is being discharged in stable condition. - Time Spent with Patient Total time spent providing and/or coordinating discharge services: Greater than 30 minutes - Constitutional Vitals: Temp Pulse Resp BP Pulse Ox 98.6 F 95 16 141/82 93 04/18/17 11:24 04/18/17 11:24 04/18/17 11:24 04/18/17 11:24 04/18/17 11:24 General appearance: Present: cooperative, A&O X 3, no acute distress, answers questions appropriately - Head Head exam: Present: atraumatic - Eye Eye exam: Present: EOMI - ENT ENT exam: Present: mucous membranes moist - Respiratory Respiratory exam: Present: CTAB. Absent: accessory muscle use, chest wall tenderness, rales, respiratory distress, rhonchi, wheezes, tachypnea - Cardiovascular Cardiovascular exam: Present: RRR, +S1, +S2 - GI/Abdominal GI/Abdominal exam: Present: soft. Absent: distended, firm, guarding, tenderness - Extremities Exam Extremities exam: Present: radial pulses palpable and symmetrical. Absent: cyanotic Additional comments: Left below-knee amputation. Right above-knee amputation, surgical dressing intact, no bleeding, site looks okay. - Neurological Exam Neurological exam: Present: alert, CN II-XII intact, oriented X3, no focal deficits. Absent: facial droop, speech deficit - VTE Documentation of Mechanical Device: Intermittent pneumatic compression device
--- NOTE | 2017-04-18 11:57 | Physician Discharge Referral ---
ExtendedCare Referral Info Provider in Charge after Transfer: PCP Institutional Level of Care: Skilled - Diagnosis (1) Arterial occlusion, lower extremity Priority: Primary Status: Acute (2) PVD (peripheral vascular disease) Priority: Primary Status: Chronic (3) DM2 (diabetes mellitus, type 2) Priority: Primary Status: Chronic (4) CAD (coronary artery disease) Priority: Primary Status: Chronic (5) HTN (hypertension) Priority: Primary Status: Acute (6) HLD (hyperlipidemia) Priority: Primary Status: Chronic Prognosis: Good Aware of Diagnosis: Patient Aware of Prognosis: Patient - Transfer Medications Prescriptions: OxyCODONE Immed Rel [Roxicodone 5 MG] 5 mg PO Q6HR PRN #10 tablet PRN Reason: Moderate Pain (4-6) Amitriptyline [Elavil] 75 mg PO HS #30 tablet Amoxicillin/Clavulanate [Augmentin] 875 mg PO BIDWM 10 Days #20 tablet Gabapentin [Neurontin] 300 mg PO TID #30 capsule Phenytoin ER [Dilantin ER] 100 mg PO TID #30 capsule Sertraline [Zoloft] 100 mg PO DAILY #30 tablet Tizanidine HCl 4 mg PO TID PRN #10 tablet PRN Reason: Muscle Spasm Home Medications: Clopidogrel [Plavix] 75 mg PO DAILY 02/04/15 [History] Nitroglycerin [Nitrostat] 0.4 mg SL Q5M PRN 08/06/16 [History] Simvastatin [Zocor] 40 mg PO HS 08/06/16 [History] Aspirin Enteric Coated [Aspirin EC] 81 mg PO DAILY 02/09/17 [History] Fenofibrate Nanocrystallized [Tricor] 145 mg PO DAILY 02/09/17 [History] Insulin ASPART [NovoLOG] 0 unit SQ TIDWM 02/09/17 [History] Insulin Glargine,Hum.rec.anlog [Toujeo Solostar] 60 units SQ DAILY 02/09/17 [ History] Lipase/Protease/Amylase [Baldo Lay 12,000 Units Capsule] 1 each PO AD 02/09/17 [ History] Lipase/Protease/Amylase [Baldo Lay 24,000 Units Capsule] 1 each PO TIDWM [History] Lisinopril 2.5 mg PO DAILY 02/09/17 [History] Metoprolol [Lopressor] 12.5 mg PO BID 02/09/17 [History] Omeprazole [PriLOSEC] 40 mg PO DAILY 02/09/17 [History] Sucralfate [Carafate] 1 gm PO QIDAC #120 tab 02/21/17 [Rx] Docusate [Colace] 100 mg PO BID #60 capsule 02/28/17 [Rx] OxyCODONE/APAP 10/325 [Percocet 10/325 MG] 1 each PO Q4HR PRN #42 tablet [Rx] Amitriptyline [Elavil] 75 mg PO HS #30 tablet 04/18/17 [Rx] Amoxicillin/Clavulanate [Augmentin] 875 mg PO BIDWM 10 Days #20 tablet 04/18/17 [Rx] Gabapentin [Neurontin] 300 mg PO TID #30 capsule 04/18/17 [Rx] OxyCODONE Immed Rel [Roxicodone 5 MG] 5 mg PO Q6HR PRN #10 tablet 04/18/17 [Rx] Phenytoin ER [Dilantin ER] 100 mg PO TID #30 capsule 04/18/17 [Rx] Sertraline [Zoloft] 100 mg PO DAILY #30 tablet 04/18/17 [Rx] Tizanidine HCl 4 mg PO TID PRN #10 tablet 04/18/17 [Rx] Allergies/Adverse Reactions: 3 Allergy/AdvReac Type Severity Reaction Status Date / Time No Known Allergies Allergy Verified 04/12/17 11:16 - Respiratory Orders Smoking Cessation: Smoking cessation has been advised. For more information, call the [place] Tobacco Quit Line at 8-148-QRPN-NOW. - Lab Orders Lab Orders: CBC (In 3 days) - Ancillary Orders May use pressure relief devices daily prn - Advance Directives Code Status: Full Code - Mobility Orders Ambulate - Rehabiliation Orders Rehab Potential: Good Rehab Orders: Evaluation for Physical Therapy, Evaluation for Occupational Therapy - Treatments Skin tear care topically daily PRN per policy - Diet Orders Cardiac CERTIFICATION: I certify that the transfer of the above named patient to an Extended Care Facility is necessary for the continuing treatment of the diagnosis listed. The above information is true and accurate reflection of patient's current condition. Confidential - Redisclosure prohibited without a patient's written consent.
== END 2017-04-18 14:02 | DRG 240 ==
LOC: EMEROO 11:09 → 2NENU 11:09 → 2NNU 04-13 15:11
PROVIDERS: ADMIT Internal Medicine; ATTEND Internal Medicine

== ENCOUNTER 2017-08-16 10:15 | Observation (INO) ==
[2017-08-16] MEDS ORDERED: *HR* OxyCODONE/APAP 10/325 TABLET PO ONE (10:39)
[2017-08-16] MEDS ORDERED: *HR* LORazepam 1 MG TABLET PO ONE (10:39)
[2017-08-16 12:47] LABS: Basophils # 0.1 K/mcL (0.0-0.2); Basophils % 0.5 %; Eosinophils # 0.6 K/mcL (0.0-0.6); Eosinophils % 3.1 %; Hematocrit 35.2 % (37.5-50.1); Hemoglobin 11.1 g/dL (12.9-16.9); Immature Granulocytes % 1.3 % (0-4); Lymphocytes # 3.4 K/mcL (0.6-4.6); Mean Corpuscular HGB Conc 31.5 g/dL (31.6-35.5); Mean Corpuscular Hemoglobin 25.6 pg (28.0-33.3); Mean Corpuscular Volume 81.1 fL (83.0-100.0); Monocytes # 1.5 K/mcL (0.0-1.3); Monocytes % 7.7 %; Neutrophils # 13.2 K/mcL (1.6-8.9); Platelet Count 823 K/mcL (140-400); Red Blood Count 4.34 M/mcL (4.19-5.50); Segmented Neutrophils % 69.4 %
[2017-08-16 13:22] LABS: Alanine Aminotransferase 7 Units/L (7-52); Albumin 3.3 g/dL (3.5-5.7); Albumin/Globulin Ratio 0.9 (1.1-2.2); Alkaline Phosphatase 105 Units/L (34-104); Aspartate Amino Transferase 15 Units/L (13-39); BUN/Creatinine Ratio 22 (6-26); Bilirubin,Total 0.3 mg/dL (0.3-1.0); Blood Urea Nitrogen 19 mg/dL (6-20); Calcium 9.6 mg/dL (8.6-10.3); Carbon Dioxide 28 mEq/L (23-29); Chloride 100 mEq/L (98-107); Globulin 3.8 g/dL (2.4-3.5); Glucose 120 mg/dL (70-105); Osmolality,Calculated 283 (280-300); Potassium 4.5 mEq/L (3.5-5.1); Sodium 135 mEq/L (136-145); Total Protein 7.1 g/dL (6.4-8.9); eGFR For African Americans > 60 (> 60); eGFR For Non-African Americans > 60 (> 60)
[2017-08-16] MEDS ORDERED: Piperacillin/Tazobactam 3.375 GM in 0.9 % Sodium Chloride Mini Bag 100 ML IVPB ONE (13:29)
[2017-08-16] MEDS ORDERED: 0.9 % Sodium Chloride Mini Bag 100 ML ONE (13:51)
[2017-08-16] MEDS ORDERED: Piperacillin/Tazobactam 3.375 GM in Water for inj. (sterile) 20 ML 20 ML IVP ONE (14:15)
--- NOTE | 2017-08-16 15:10 | Emergency Department Note ---
Disposition Clinical Impression: Cellulitis Qualifiers: Site of cellulitis: extremity Site of cellulitis of extremity: lower extremity Laterality: right Qualified Code(s): L03.115 - Cellulitis of right lower limb Disposition: Home, Self-Care Condition: Good General Adult HPI - General Chief complaint: ED Recheck/Abnormal Lab/Rx Stated complaint: Needs Labs Time Seen by Provider: 08/16/17 10:29 Source: patient Limitations: no limitations Nursing Notes Reviewed: Yes Vital Signs Reviewed: Yes - History of Present Illness HPI Narrative: This is a 57-year-old male who is a vasculopath sent from Dr. Gaona in general surgery with concern for recent injury to his right stump from his recent above- the-knee amputation. Dr. Gaona requested that we obtain soft tissue ultrasounds of the stump as well as venous duplexes. The patient is supposedly on Coumadin. It is unknown why he is on Coumadin. He admits that he fell on the stump several days ago. He has no bleeding from the stump. He has no other trauma from falling. He complains of pain in his right leg. General: No acute distress HEENT: Pupils equal and reactive to light, extraoccular muscle movement is normal, TMS are clear bilaterally. Heart: RRR, No murmor rub or gallop Lungs: lungs clear, no wheezing, rales or ronchi. ABD: SNT, no focal areas or tenderness, no guarding or rebound tenderness. Extremities: There are [id number] abputation on the right, below the knee amputation on the left Neuro: CN 2-12 in tact, no focal deficit. strength 5/5. Medical decision making Findings consistent with possible cellulitis of the right stump. He has chronic leukocytosis. There are findings of cellulitis on ultrasound. He has no fever currently. He does have increased pain. There is findings of vascular occlusion of both lower extremities. I discussed this with the on- call vascular surgeon and this would be expected given his aPTT patient. There is findings of stent occlusion but again this would be expected per the vascular surgeon. There are chronic DVTs. I would defer anticoagulation to the inpatient team at this point given recent trauma to the stopping concern for possible hematoma which could delayed wound healing. Patient will be admitted for further evaluation. Broad-spectrum antibiotics were initiated. The patient was stable at the time of admission. Pain Scale: 10 - Related Data Home Medications Medication Instructions Recorded Confirmed Clopidogrel [Plavix] 75 mg PO DAILY 02/04/15 08/16/17 Nitroglycerin [Nitrostat] 0.4 mg SL Q5M PRN 08/06/16 08/16/17 Simvastatin [Zocor] 40 mg PO HS 08/06/16 08/16/17 Aspirin Enteric Coated [Aspirin EC] 81 mg PO DAILY 02/09/17 08/16/17 Fenofibrate Nanocrystallized 145 mg PO DAILY 02/09/17 08/16/17 [Tricor] Insulin ASPART [NovoLOG] 0 unit SQ TIDWM 02/09/17 08/16/17 Insulin Glargine,Hum.rec.anlog 70 units SQ DAILY 02/09/17 08/16/17 [Toelizabeth Solostmartina] Lipase/Protease/Amylase [Creon Dr 1 each PO AD 02/09/17 08/16/17 12,000 Units Capsule] Lisinopril 2.5 mg PO DAILY 02/09/17 08/16/17 Omeprazole [PriLOSEC] 40 mg PO DAILY 02/09/17 08/16/17 Isosorbide MONOnitrate (24 HR) 30 mg PO DAILY 06/28/17 08/16/17 [Imdur] clonazePAM [Clonazepam] 0.5 mg PO DAILY 06/28/17 08/16/17 Gabapentin [Neurontin] 800 mg PO TID 08/11/17 08/16/17 Previous Rx's Medication Instructions Recorded Sucralfate [Carafate] 1 gm PO QIDAC #120 tab 02/21/17 Phenytoin ER [Dilantin ER] 100 mg PO TID #30 capsule 04/18/17 Sertraline [Zoloft] 100 mg PO DAILY #30 tablet 04/18/17 Tizanidine HCl 4 mg PO TID PRN #10 tablet 04/18/17 Rivaroxaban [Xarelto] 20 mg PO DAILY #30 tablet 07/11/17 levoFLOXacin [Levaquin] 750 mg PO DAILY #7 tablet 08/22/17 Allergies Allergy/AdvReac Type Severity Reaction Status Date / Time No Known Allergies Allergy Verified 08/16/17 10:17 All systems ED: reviewed and negative except as stated. Past Medical History - Past Medical History Medical history: Reports: CHF, coronary artery disease, CVA, DVT, diabetes, GERD , hyperlipidemia, hypertension, myocardial infarction, seizures, other Surgical history: Reports: angioplasty/stent, cholecystectomy, coronary bypass ( CABG), IVC Filter, LE Bypass, LE stent(s), vascular surgery, other (Bilateral lower extremity amputations.) Psychiatric history: Reports: anxiety, depression - Social History Smoking Status: Current every day smoker Smokeless Tobacco Status: No Alcohol use: Reports: none Drug use: Reports: none Physical Exam - General Limitations: no limitations General appearance: alert, in no apparent distress Course Vital Signs Temperature 98.7 F 08/16/17 10:17 Pulse Rate 95 08/16/17 10:17 Respiratory Rate 16 08/16/17 10:17 Blood Pressure 94/61 08/16/17 10:17 O2 Sat by Pulse Oximetry 100 08/16/17 10:17 Temperature 98.3 F 08/23/17 11:41 Pulse Rate 87 08/23/17 11:41 Respiratory Rate 18 08/23/17 11:41 Blood Pressure 92/60 08/23/17 11:41 O2 Sat by Pulse Oximetry 97 08/23/17 11:41 Oxygen Delivery Oxygen Delivery Room Air Medical Decision Making - Lab Data Result diagrams: 08/22/17 05:11 08/21/17 08:46 Lab Results 08/16/17 08/16/17 08/16/17 Range/Units 12:09 12:32 12:32 WBC 18.9 H (4.3-11.1) K/mcL RBC 4.34 (4.19-5.50) M/mcL Hgb 11.1 L (12.9-16.9) g/dL Hct 35.2 L (37.5-50.1) % MCV 81.1 L (83.0-100.0) fL MCH 25.6 L (28.0-33.3) pg MCHC 31.5 L (31.6-35.5) g/dL RDW 16.0 H (11.5-14.5) % Plt Count 823 H (140-400) K/mcL MPV 9.0 L (9.4-12.4) fL Immature Gran % 1.3 (0-4) % Seg Neutrophils % 69.4 % Lymphocytes % 18.0 % Monocytes % 7.7 % Eosinophils % 3.1 % Basophils % 0.5 % Neutrophils # 13.2 H (1.6-8.9) K/mcL Lymphocytes # 3.4 (0.6-4.6) K/mcL Monocytes # 1.5 H (0.0-1.3) K/mcL Eosinophils # 0.6 (0.0-0.6) K/mcL Basophils # 0.1 (0.0-0.2) K/mcL PT 11.0 (9.4-12.1) Seconds INR 1.0 Sodium 135 L (136-145) mEq/L Potassium 4.5 (3.5-5.1) mEq/L Chloride 100 (98-107) mEq/L Carbon Dioxide 28 (23-29) mEq/L BUN 19 (6-20) mg/dL Creatinine 0.88 (0.70-1.30) mg/dL Est GFR ( Amer) > 60 (> 60) Est GFR (Non-Af Amer) > 60 (> 60) BUN/Creatinine Ratio 22 (6-26) Glucose 120 H (70-105) mg/dL Calculated Osmolality 283 (280-300) Lactic Acid (0.5-2.2) mmol/L Calcium 9.6 (8.6-10.3) mg/dL Total Bilirubin 0.3 (0.3-1.0) mg/dL AST 15 (13-39) Units/L ALT 7 (7-52) Units/L Alkaline Phosphatase 105 H (34-104) Units/L Serum Total Protein 7.1 (6.4-8.9) g/dL Albumin 3.3 L (3.5-5.7) g/dL Globulin 3.8 H (2.4-3.5) g/dL Albumin/Globulin Ratio 0.9 L (1.1-2.2) 08/16/17 Range/Units 14:06 WBC (4.3-11.1) K/mcL RBC (4.19-5.50) M/mcL Hgb (12.9-16.9) g/dL Hct (37.5-50.1) % MCV (83.0-100.0) fL MCH (28.0-33.3) pg MCHC (31.6-35.5) g/dL RDW (11.5-14.5) % Plt Count (140-400) K/mcL MPV (9.4-12.4) fL Immature Gran % (0-4) % Seg Neutrophils % % Lymphocytes % % Monocytes % % Eosinophils % % Basophils % % Neutrophils # (1.6-8.9) K/mcL Lymphocytes # (0.6-4.6) K/mcL Monocytes # (0.0-1.3) K/mcL Eosinophils # (0.0-0.6) K/mcL Basophils # (0.0-0.2) K/mcL PT (9.4-12.1) Seconds INR Sodium (136-145) mEq/L Potassium (3.5-5.1) mEq/L Chloride (98-107) mEq/L Carbon Dioxide (23-29) mEq/L BUN (6-20) mg/dL Creatinine (0.70-1.30) mg/dL Est GFR ( Amer) (> 60) Est GFR (Non-Af Amer) (> 60) BUN/Creatinine Ratio (6-26) Glucose (70-105) mg/dL Calculated Osmolality (280-300) Lactic Acid 0.6 (0.5-2.2) mmol/L Calcium (8.6-10.3) mg/dL Total Bilirubin (0.3-1.0) mg/dL AST (13-39) Units/L ALT (7-52) Units/L Alkaline Phosphatase (34-104) Units/L Serum Total Protein (6.4-8.9) g/dL Albumin (3.5-5.7) g/dL Globulin (2.4-3.5) g/dL Albumin/Globulin Ratio (1.1-2.2)
--- NOTE | 2017-08-16 19:52 | Internal Med History&Physical ---
<Shellie Caldwell - Last Filed: 08/16/17 22:51> Date of Encounter: 08/16/17 Time of Encounter: 19:51 Assessment and Plan (1) Cellulitis Current visit: Yes Status: Acute Cellulitis with associated comorbidites Microbiology culture pending Given patient's medical profile, initiate parental Antibiotic therapy Emperic antibiotic -- Vanc + pip/tazo, will plan to narrow antibiotic therapy per culture data Maintain Limb elevation with involving knee Further plan, per attending note Wound consult, appreciate recs Qualifiers: Site of cellulitis: extremity Site of cellulitis of extremity: lower extremity Laterality: right Qualified Code(s): L03.115 - Cellulitis of right lower limb (2) PVD (peripheral vascular disease) Current visit: No Status: Chronic B/l LE arterial duplex: Occlusion of the right LE starting at the WEAVER HAND LOOM. Occlusion of the left LE starting at the proximal SFA. Dr. Tavares- Vascular service on consult. (3) Chronic deep vein thrombosis (DVT) Current visit: Yes Status: Acute Partial chronic DVT in the right Iliac V, CFV, and SFV. Left contralateral comparison appears to be partially occluded in the CFV as well. Continue Xarelto. Dr. Tavares - Vascular Service on consult. Qualifiers: DVT location: lower extremity Laterality: bilateral Qualified Code(s): I82.503 - Chronic embolism and thrombosis of unspecified deep veins of lower extremity, bilateral (4) CAD (coronary artery disease) Current visit: No Status: Chronic Clinical manifestation concern for vasculopathic disorders, with history of CAD. Continue plavix for now. Vascular on consult, appreciate recs. Qualifiers: Coronary Disease-Associated Artery/Lesion type: bypass graft [place] vs. transplanted heart: [place] heart Associated angina: without angina Qualified Code(s): I25.810 - Atherosclerosis of coronary artery bypass graft(s) without angina pectoris (5) Diabetes Current visit: Yes Status: Acute Insulin sliding scale, adjust as needed. Accuchecks q 6h. BMP AM. Hypoglycemia protocol ordered Qualifiers: Diabetes mellitus type: type 2 Diabetes mellitus fpc insulin use: with fpc use Diabetes mellitus complication status: with circulatory complication Diabetes mellitus complication detail: with other circulatory complications Qualified Code(s): E11.59 - Type 2 diabetes mellitus with other circulatory complications; Z79.4 - [facility]FP (current) use of insulin; Z79.4 - [facility]FP (current) use of insulin; Z79.4 - [facility] (current) use of insulin; Z79.4 - [facility]FP (current) use of insulin Internal Medicine - H&P: HPI Chief complaint: Cellulitis History of present illness: Mr. Slaughter is a 57 year old male with past medical history of coronary artery disease, CVA, diabetes, hyperlipidemia, hypertension, CHF, peripheral disease, anxiety and depression. Pt is on dual antiplatelet therapy and Xarelto with recent R knee amputation presenting s/p fall with complaint of ongoing complaint of pain in R knee for several days. Associated symptoms: tenderness on palpation and movement. Endorses bleeding initially which has discontinued. Pt states he is not completely aware of all medications prescribed by doctor. Extremity U/S done at intake consistent with cellulitis at the amputation site. Patient was previously admitted for acute arterial occlusion of the R lower extremity on the right side in 2016, underwent right ilio-femoral popliteal thrombectomy and right [id number] amputation. Patient had a left below-knee amputation approx. 2 years preceding previous admission for similar complaints. Past Med Surg Social Fam HX - Past Medical History Medical history: CHF, coronary artery disease, CVA, DVT, diabetes, GERD, hyperlipidemia, hypertension, myocardial infarction, seizures, other Psychiatric history: anxiety, depression - Past Surgical History Surgical History: angioplasty/stent, cholecystectomy, coronary bypass (CABG), IVC Filter, LE Bypass, LE stent(s), vascular surgery, other - Social History Smoking Status: Former smoker Smokeless Tobacco Status: No Alcohol use: none Drug use: none - Family History Father Adopted: No Living Status: Still Living Hx Family Cardiac Disorders: Yes (CABG) Hx Family Endocrine Disorder: Yes Internal Medicine - H&P: Meds Clopidogrel [Plavix] 75 mg PO DAILY 02/04/15 [History] Nitroglycerin [Nitrostat] 0.4 mg SL Q5M PRN 08/06/16 [History] Simvastatin [Zocor] 40 mg PO HS 08/06/16 [History] Aspirin Enteric Coated [Aspirin EC] 81 mg PO DAILY 02/09/17 [History] Fenofibrate Nanocrystallized [Tricor] 145 mg PO DAILY 02/09/17 [History] Insulin ASPART [NovoLOG] 0 unit SQ TIDWM 02/09/17 [History] Insulin Glargine,Hum.rec.anlog [Phyllis Solostmartina] 70 units SQ DAILY 02/09/17 [ History] Lipase/Protease/Amylase [Baldo Lay 12,000 Units Capsule] 1 each PO AD 02/09/17 [ History] Lisinopril 2.5 mg PO DAILY 02/09/17 [History] Omeprazole [PriLOSEC] 40 mg PO DAILY 02/09/17 [History] Sucralfate [Carafate] 1 gm PO QIDAC #120 tab 02/21/17 [Rx] Phenytoin ER [Dilantin ER] 100 mg PO TID #30 capsule 04/18/17 [Rx] Sertraline [Zoloft] 100 mg PO DAILY #30 tablet 04/18/17 [Rx] Tizanidine HCl 4 mg PO TID PRN #10 tablet 04/18/17 [Rx] Isosorbide MONOnitrate (24 HR) [Imdur] 30 mg PO DAILY 06/28/17 [History] clonazePAM [Clonazepam] 0.5 mg PO DAILY 06/28/17 [History] Rivaroxaban [Xarelto] 20 mg PO DAILY #30 tablet 07/11/17 [Rx] Gabapentin [Neurontin] 800 mg PO TID 08/11/17 [History] 3 Allergy/AdvReac Type Severity Reaction Status Date / Time No Known Allergies Allergy Verified 08/16/17 10:17 All Systems PM: A 10-system review of systems was performed and is negative for pertinent findings except as documented above in the HPI. - Constitutional Constitutional: no weakness - Cardiovascular Cardiovascular ROS IM: no chest pain, no dyspnea - Musculoskeletal Musculoskeletal ROS IM: as per HPI - Integumentary Integumentary IM: as per HPI - Constitutional Vitals: Temp Pulse Resp BP Pulse Ox 98.7 F 93 16 103/66 96 08/16/17 16:52 08/16/17 16:52 08/16/17 16:52 08/16/17 16:52 08/16/17 16:52 General appearance: Present: cooperative, no acute distress - Head Head exam: Present: atraumatic, normocephalic Additional comments: Dandruff: Scalp shows fine, white, diffuse scaliness without underlying erythema - Respiratory Respiratory exam: Present: CTAB. Absent: accessory muscle use, chest wall tenderness, rales, wheezes, tachypnea - Cardiovascular Cardiovascular exam: Present: RRR, +S1, +S2. Absent: tachycardia - GI/Abdominal GI/Abdominal exam: Present: normal bowel sounds, soft. Absent: distended, guarding, rebound, tenderness, no peritoneal signs - Expanded Lower Extremities Exam Lower Leg exam: Present: deformity (R: Above the Knee Amputation. Clean Dressing overlying distal end of knee. No oozing. Drainage packing in place in medial portion of leg. No active drainage. Tender on palpation circumferentially. No marked erythema. No warmth. L: Below the knee amputation - No erythema. No abcesses. Linear abrasions on anterior portion of knee. No ecchymosis. ) Internal Med - H&P Results - Labs CBC & Chem 7: 08/16/17 12:32 08/16/17 12:32 - Impressions Impressions Extremity Ultrasound 08/16/17 10:37 IMPRESSION: Findings suggest cellulitis at the amputation site. No focal fluid collections seen. D/ / James Anderson MD / James Anderson MD Interpreting Provider: James Anderson MD 08/16/17 14:08 - Vascular Preliminary by Yeni Collins [facility] Num: [id number] : 1960 Patient Age: 57 Bilateral lower extremity arterial duplex completed. Occlusion of the right LE starting at the WEAVER HAND LOOM. Occlusion of the left LE starting at the proximal SFA. 08/16/17 12:02 - Vascular Preliminary by Yeni Collins [facility] Num: [id number] : 1960 Patient Age: 57 Unilateral lower extremity venous duplex exam completed. Partial chronic DVT in the right Iliac V, CFV, and SFV. Left contralateral comparison appears to be partially occluded in the CFV as well. Incidental finding discussed with Dr. Holm in reference to diminished arterial flow. Initialized on 08/16/17 12:02 - END OF NOTE <Barbara Landry - Last Filed: 08/17/17 01:08> Date of Encounter: 08/17/17 Internal Medicine - H&P: HPI History of present illness: Mr. Slaughter is a 57 year old male All Systems PM: A 10-system review of systems was performed and is negative for pertinent findings except as documented above in the HPI. - Constitutional Vitals: Temp Pulse Resp BP Pulse Ox 98.8 F 98 16 93/63 95 08/16/17 23:07 08/16/17 23:07 08/16/17 23:07 08/16/17 23:07 08/16/17 23:07 Internal Med - H&P Results - Labs CBC & Chem 7: 08/16/17 12:32 08/16/17 12:32 - Attending Attestation I examined this patient and my medical decision-making was reviewed with the Resident Physician. I agree with the documented findings, disposition and treatment plan as described except to the extent set forth below.
[2017-08-16] MEDS ORDERED: Nitroglycerin 0.4 MG TAB.SUBL SL PRN (21:54)
[2017-08-16] MEDS ORDERED: Dextrose Gel 15 GM/37.5 ML TUBE PO PRN ×2 (21:58)
[2017-08-16] MEDS ORDERED: *HR* Dextrose 50 % in Water (Syg) 50 ML SYRINGE IVP PRN (21:58)
[2017-08-16] MEDS ORDERED: D5% in Water 1,000 ML IVC PRN (21:58)
[2017-08-16] MEDS ORDERED: Naloxone 0.4 MG/ML INJ IVP PRN (23:09)
[2017-08-16] MEDS: Insulin LISPRO 300 UNITS/3 ML VIAL SQ SCH (23:29)
[2017-08-16] MEDS: Ibuprofen 400 MG TABLET PO PRN (23:38)
[2017-08-17 04:47] LABS: Basophils # 0.1 K/mcL (0.0-0.2); Basophils % 0.5 %; Eosinophils # 0.7 K/mcL (0.0-0.6); Eosinophils % 4.1 %; Hematocrit 34.9 % (37.5-50.1); Hemoglobin 10.7 g/dL (12.9-16.9); Immature Granulocytes % 1.1 % (0-4); Lymphocytes # 3.6 K/mcL (0.6-4.6); Lymphocytes % 21.6 %; Mean Corpuscular HGB Conc 30.7 g/dL (31.6-35.5); Mean Corpuscular Hemoglobin 25.1 pg (28.0-33.3); Mean Corpuscular Volume 81.9 fL (83.0-100.0); Mean Platelet Volume 9.3 fL (9.4-12.4); Monocytes # 1.3 K/mcL (0.0-1.3); Monocytes % 8.1 %; Neutrophils # 10.7 K/mcL (1.6-8.9); Nucleated Red Blood Cells 0.1 /100 WBC (0); Platelet Count 894 K/mcL (140-400); Red Blood Count 4.26 M/mcL (4.19-5.50); Red Cell Distribution Width 16.1 % (11.5-14.5); Segmented Neutrophils % 64.6 %
[2017-08-17 04:50] LABS: INR 1.1; Prothrombin Time 11.6 Seconds (9.4-12.1)
[2017-08-17 04:53] LABS: Activated Partial Thrombo Time 32.2 Seconds (26.0-36.0)
[2017-08-17 04:54] LABS: BUN/Creatinine Ratio 19 (6-26); Blood Urea Nitrogen 23 mg/dL (6-20); Carbon Dioxide 28 mEq/L (23-29); Chloride 100 mEq/L (98-107); Glucose 215 mg/dL (70-105); Osmolality,Calculated 288 (280-300); Potassium 4.3 mEq/L (3.5-5.1); Sodium 134 mEq/L (136-145); eGFR For African Americans > 60 (> 60); eGFR For Non-African Americans > 60 (> 60)
[2017-08-17] MEDS: Insulin LISPRO 300 UNITS/3 ML VIAL SQ SCH ×3 (06:44→18:08)
[2017-08-17] MEDS ORDERED: 0.9 % Sodium Chloride 1,000 ML IVC ONE ×2 (07:40→15:00)
[2017-08-17] MEDS: *HR* Rivaroxaban 10 MG TABLET PO SCH (08:45)
[2017-08-17] MEDS: clonazePAM 0.5 MG TABLET PO SCH (08:45)
[2017-08-17] MEDS ORDERED: Aspirin Enteric Coated 81 MG Tablet PO SCH (09:00)
[2017-08-17] MEDS: tiZANidine 4 MG TABLET PO PRN (09:04)
[2017-08-17] MEDS: *HR* HYDROcodone/Acet 5/325 mg TABLET PO PRN ×2 (13:42→22:55)
[2017-08-17 16:08] LABS: Basophils # 0.1 K/mcL (0.0-0.2); Basophils % 0.4 %; Eosinophils # 0.6 K/mcL (0.0-0.6); Eosinophils % 3.8 %; Hematocrit 35.2 % (37.5-50.1); Hemoglobin 10.7 g/dL (12.9-16.9); Lymphocytes # 3.2 K/mcL (0.6-4.6); Lymphocytes % 18.8 %; Mean Corpuscular HGB Conc 30.4 g/dL (31.6-35.5); Mean Corpuscular Hemoglobin 24.9 pg (28.0-33.3); Mean Corpuscular Volume 82.1 fL (83.0-100.0); Monocytes # 1.3 K/mcL (0.0-1.3); Monocytes % 7.5 %; Neutrophils # 11.5 K/mcL (1.6-8.9); Platelet Count 848 K/mcL (140-400); Red Blood Count 4.29 M/mcL (4.19-5.50); Red Cell Distribution Width 16.2 % (11.5-14.5); Segmented Neutrophils % 68.5 %
[2017-08-17 16:27] LABS: BUN/Creatinine Ratio 23 (6-26); Blood Urea Nitrogen 20 mg/dL (6-20); Calcium 9.1 mg/dL (8.6-10.3); Carbon Dioxide 27 mEq/L (23-29); Chloride 104 mEq/L (98-107); Glucose 194 mg/dL (70-105); Osmolality,Calculated 288 (280-300); Potassium 4.4 mEq/L (3.5-5.1); Sodium 135 mEq/L (136-145); eGFR For African Americans > 60 (> 60); eGFR For Non-African Americans > 60 (> 60)
[2017-08-17 16:44] LABS: INR 1.2; Prothrombin Time 12.8 Seconds (9.4-12.1)
[2017-08-17 16:46] LABS: Activated Partial Thrombo Time 37.7 Seconds (26.0-36.0)
--- NOTE | 2017-08-17 19:30 | Vascular/Endovasc Consult Note ---
Date of Encounter: 08/17/17 Time of Encounter: 18:40 Assessment and Plan (1) PVD (peripheral vascular disease) Current Visit: Yes Status: Chronic Patient has chronic and diffuse peripheral vascular occlusive disease. Patient status post bilateral amputations. (2) Wound infection after surgery Current Visit: No Status: Acute Patient has 2 wounds noted on the right yvagk-rjk-[id number] amputation site. It is unclear how long these wounds have been present in the true natural history of this area. There is at least 1 admitted fall with trauma to this area by the patient. Of note he is on antiplatelet therapy and Xarleto therapy for his chronic DVT. At this time I do not recommend direct surgical exploration. It is unclear what the patient's history is been over the past number of weeks. I would recommend that the intravenous antibiotics be continued and that the wound service be consulted for managing the AKA wounds. Qualifiers: Encounter type: subsequent encounter Qualified Code(s): T81.4XXD - Infection following a procedure, subsequent encounter (3) Chronic deep vein thrombosis (DVT) Current Visit: Yes Status: Chronic Patient has bilateral lower extremity chronic DVT. This is greater on the right lower extremity than on the left lower extremity. Qualifiers: DVT location: lower extremity Laterality: bilateral Qualified Code(s): I82.503 - Chronic embolism and thrombosis of unspecified deep veins of lower extremity, bilateral (4) Diabetes Current Visit: Yes Status: Chronic Poorly controlled diabetes. Qualifiers: Diabetes mellitus type: type 2 Diabetes mellitus usp insulin use: with usp use Diabetes mellitus complication status: with circulatory complication Diabetes mellitus complication detail: with other circulatory complications Qualified Code(s): E11.59 - Type 2 diabetes mellitus with other circulatory complications; Z79.4 - retirement (current) use of insulin; Z79.4 - extermination supervisor (current) use of insulin; Z79.4 - retirement (current) use of insulin; Z79.4 - extermination supervisor (current) use of insulin - History of Present Illness Consult date: 08/17/17 Consult reason: Right AKA stump pain Chief complaint: Right AKA stump pain History of present illness: Mr. Slaughter is a 57 year old male Who was admitted via the emergency room yesterday. Apparently the patient was being followed in the edema wound clinic by Dr. Johnson for the last month for some type of ulceration or wound on the right AKA. There must have been some type of deterioration of the wound and the patient was referred to the emergency room because he had fallen on the stump some days ago. Ultrasound imaging was obtained and the patient was admitted because of cellulitis. On questioning the patient this afternoon I obtained a somewhat confused story. The patient is well-known to the vascular surgery service as he has had multiple bilateral lower extremity endovascular and open surgical interventions over the past number of years. These unfortunately have culminated in the need for amputation. He had a left below the knee amputation in September 2012. On April 14, 2017 he underwent a right pnwmo-hhe-unrf amputation following an attempt at thrombectomy. He was last seen in the vascular surgery clinic on June 01, 2017 at which time his AKA was healing well and there were no obvious problems. The patient has bilateral chronic DVTs greater on the right side than on the left. The patient has diffuse arterial occlusive disease involving the femoral systems bilaterally. On my interview with the patient today he states that he has been having some type of drainage from his clzhr-yhl-hanq amputation for over 6 weeks. He is very unclear about the incident of trauma where he had fallen on the stump recently though it would appear that this is most likely not the only event of trauma to the amputation site. The patient has multiple vascular risk factors including diabetes, hypertension , hyperlipidemia, coronary artery disease, tobacco abuse, and poor compliance with medical interventions. Of note the patient states he has stopped smoking as of 3 weeks ago. Due to the bilateral nature of his amputations and his overall physical status he is not a candidate for prosthetic therapy. Past Med Surg Social Fam HX - Past Medical History Medical history: CHF, coronary artery disease, CVA, DVT, diabetes, GERD, hyperlipidemia, hypertension, myocardial infarction, seizures, other Psychiatric history: anxiety, depression - Past Surgical History Surgical History: angioplasty/stent, cholecystectomy, coronary bypass (CABG), IVC Filter, LE Bypass, LE stent(s), vascular surgery, other - Social History Smoking Status: Former smoker Smokeless Tobacco Status: No Alcohol use: none Drug use: none - Family History Father Adopted: No Living Status: Still Living Hx Family Cardiac Disorders: Yes (CABG) Hx Family Endocrine Disorder: Yes Medications and Allergies Clopidogrel [Plavix] 75 mg PO DAILY 02/04/15 [History] Nitroglycerin [Nitrostat] 0.4 mg SL Q5M PRN 08/06/16 [History] Simvastatin [Zocor] 40 mg PO HS 08/06/16 [History] Aspirin Enteric Coated [Aspirin EC] 81 mg PO DAILY 02/09/17 [History] Fenofibrate Nanocrystallized [Tricor] 145 mg PO DAILY 02/09/17 [History] Insulin ASPART [NovoLOG] 0 unit SQ TIDWM 02/09/17 [History] Insulin Glargine,Hum.rec.anlog [Toujeo Solostar] 70 units SQ DAILY 02/09/17 [ History] Lipase/Protease/Amylase [Creon Dr 12,000 Units Capsule] 1 each PO AD 02/09/17 [ History] Lisinopril 2.5 mg PO DAILY 02/09/17 [History] Omeprazole [PriLOSEC] 40 mg PO DAILY 02/09/17 [History] Sucralfate [Carafate] 1 gm PO QIDAC #120 tab 02/21/17 [Rx] Phenytoin ER [Dilantin ER] 100 mg PO TID #30 capsule 04/18/17 [Rx] Sertraline [Zoloft] 100 mg PO DAILY #30 tablet 04/18/17 [Rx] Tizanidine HCl 4 mg PO TID PRN #10 tablet 04/18/17 [Rx] Isosorbide MONOnitrate (24 HR) [Imdur] 30 mg PO DAILY 06/28/17 [History] clonazePAM [Clonazepam] 0.5 mg PO DAILY 06/28/17 [History] Rivaroxaban [Xarelto] 20 mg PO DAILY #30 tablet 07/11/17 [Rx] Gabapentin [Neurontin] 800 mg PO TID 08/11/17 [History] 3 Allergy/AdvReac Type Severity Reaction Status Date / Time No Known Allergies Allergy Verified 08/16/17 10:17 All Systems Review: The remainder of the systems were reviewed and are negative Exam Vital Signs, Last 4 Hours Temp Pulse Resp BP Pulse Ox 08/17/17 17:00 98.8 F 88 18 107/70 97 General: Present: Conversant, Well developed, Well nourished HEENT: Present: Atraumatic, Normocephaly, Trachea midline Neck: Absent: JVD Cardiac: Present: Reg Rate and Rhythm Lungs: Present: Normal Breath Sounds Neuro: Present: Alert and responsive, No focal deficits noted, Cranial nerves grossly intact Abdomen: Present: Soft, Non-tender. Absent: Masses Vascular: Present: Pulse, normal (Patient's femoral pulses are 2+ and symmetrical.), Amputation(s) (The left below the knee amputation site is well- healed. There are no lesions or discolorations. The right above-knee amputation site is sensitive to touch. He has 2 separate areas of open wound. There is serosanguineous drainage present. Her is no streaking. There is no odor. With distraction I'm able to palpate the area of the amputation site.) Skin: Present: No rashes noted on visualized skin Consult Discharge Plan - Plan Referrals: Suleman Fonseca MD [Primary Care Provider] -
--- NOTE | 2017-08-17 19:31 | Internal Med Progress Note ---
Date of Encounter: 08/17/17 Time of Encounter: 10:40 - Time Spent With Patient less than 15 minutes - Subjective Interval history: Patient was seen and assessed up at 10:40 AM. Patient appears to be very depressed, states her significant good about that today, states that he wants her to get surgery (taking care. He appears to be angry with surgery and states that he has messed up his legs and multiple times. I asked patient if she would like to transfer to another facility, he also became agitated with that and states that he just wants to be left alone. States that we are "stalling on chopping off the rest of my legs". He denies suicidal or homicidal ideations. He states this just how he acts. I will discuss mental health evalution with him tomorrow. He denies headache, n/v/d, abdominal pain or chest pain. Unable to access plan portion of chart: Cellulitis: The patient is being treated empirically with Vanco and Zosyn, we will plan to narrow antibiotic after cultures available. Continue to elevate affected limb. Right lower extremity Wound culture has seen patient today. Patient already follows with Dr. Johnson at the wound care center for nonhealing stump incision. Patient reports fall onto his stump and increasing pain. Wound care has recommended normal saline wet-to-dry dressings until he is seen by vascular. Peripheral Vascular Disease: No lower extremity arterial duplex that showed occlusions of right lower extremity, occlusion of left lower extremity. Dr. Tavares has been consulted to see patient. I appreciate his recommendations and consultation. Chronic DVT: Patient has partial chronic DVT and right iliac, CT PE, SFP. 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 Dr. Tavares is following. Continue xarelto. CAD: Patient denies chest pain. Continue Plavix and Xarelto. Vascular surgery following. Type 2 diabetes: A1c was 10.9% in March, will reorder for morning. Continue sliding scale insulin, Accu-Cheks before meals and at bedtime, diabetic diet. Depression: Patient appears to be depressed and expresses but there is nothing good about the day and he wishes he was . He denies any suicidal or homicidal ideations and states that he would never harm himself. He states this is just how he acts and he is tired of being in and out of the hospital. We will continue his antidepressant and monitor him. Will add [facility] consultation for morning. DVT prophylaxis: Continue anticoagulation as above. - Constitutional Vitals: Temp Pulse Resp BP Pulse Ox 98.8 F 88 18 107/70 97 08/17/17 17:00 08/17/17 17:00 08/17/17 17:00 08/17/17 17:00 08/17/17 17:00 General appearance: Present: cooperative, A&O X 3, no acute distress, answers questions appropriately - Head Head exam: Present: atraumatic, normal inspection, normocephalic - Eye Eye exam: Present: normal appearance, conjuntiva pink, sclera anicteric - Neck Neck exam general surgery: Present: supple, trachea midline. Absent: lymphadenopathy, tenderness - Respiratory Respiratory exam: Present: CTAB. Absent: accessory muscle use, chest wall tenderness, rales, rhonchi, wheezes - Cardiovascular Cardiovascular exam: Present: RRR, +S1, +S2. Absent: bradycardia, diastolic murmur, gallop, rubs, systolic murmur, tachycardia - GI/Abdominal GI/Abdominal exam: Present: normal bowel sounds, soft, no peritoneal signs. Absent: distended, hepatomegaly, splenomegaly, tenderness - Extremities Exam Extremities exam: Present: warm, radial pulses palpable and symmetrical. Absent : calf tenderness, cyanotic, normal inspection, pedal edema Additional comments: Bilateral lower extremity amputations. - Neurological Exam Neurological exam: Present: alert, oriented X3, no focal deficits. Absent: altered, facial droop, speech deficit - Psychiatric Psychiatric exam: Present: agitated, depressed, flat affect. Absent: homicidal ideation, suicidal ideation - Skin Skin exam: Present: dry, intact, normal color, rash Internal Medicine: Result - Labs CBC & Chem 7: 08/17/17 15:58 08/17/17 15:58 Labs: Short CBC 08/17/17 08/17/17 Range/Units 03:47 15:58 WBC 16.5 H 16.8 H (4.3-11.1) K/mcL Hgb 10.7 L 10.7 L (12.9-16.9) g/dL Hct 34.9 L 35.2 L (37.5-50.1) % Plt Count 894 H 848 H (140-400) K/mcL Neutrophils # 10.7 H 11.5 H (1.6-8.9) K/mcL BMP 08/17/17 08/17/17 03:47 15:58 Sodium 134 L 135 L Potassium 4.3 4.4 Chloride 100 104 Carbon Dioxide 28 27 BUN 23 H 20 Creatinine 1.20 0.87 Glucose 215 H 194 H Calcium 9.0 9.1 - ABG Interpretation ABG results: PT/INR, D-dimer PT 12.8 Seconds (9.4-12.1) H 08/17/17 15:58 Consult Discharge Plan - Plan Referrals: Suleman Fonseca MD [Primary Care Provider] -
[2017-08-18] MEDS: Insulin LISPRO 300 UNITS/3 ML VIAL SQ SCH ×5 (00:06→23:40)
[2017-08-18 04:17] LABS: Basophils # 0.1 K/mcL (0.0-0.2); Basophils % 0.3 %; Eosinophils # 0.6 K/mcL (0.0-0.6); Eosinophils % 4.3 %; Hematocrit 32.9 % (37.5-50.1); Hemoglobin 10.1 g/dL (12.9-16.9); Immature Granulocytes % 0.8 % (0-4); Lymphocytes # 4.2 K/mcL (0.6-4.6); Lymphocytes % 29.1 %; Mean Corpuscular HGB Conc 30.7 g/dL (31.6-35.5); Mean Corpuscular Hemoglobin 25.3 pg (28.0-33.3); Mean Corpuscular Volume 82.5 fL (83.0-100.0); Mean Platelet Volume 9.2 fL (9.4-12.4); Monocytes # 1.4 K/mcL (0.0-1.3); Monocytes % 9.7 %; Platelet Count 805 K/mcL (140-400); Red Blood Count 3.99 M/mcL (4.19-5.50); Red Cell Distribution Width 16.1 % (11.5-14.5); Segmented Neutrophils % 55.8 %
[2017-08-18 04:41] LABS: BUN/Creatinine Ratio 20 (6-26); Blood Urea Nitrogen 17 mg/dL (6-20); Calcium 9.1 mg/dL (8.6-10.3); Carbon Dioxide 26 mEq/L (23-29); Chloride 104 mEq/L (98-107); Glucose 107 mg/dL (70-105); Osmolality,Calculated 284 (280-300); Sodium 136 mEq/L (136-145); eGFR For African Americans > 60 (> 60); eGFR For Non-African Americans > 60 (> 60)
[2017-08-18] MEDS: *HR* Rivaroxaban 10 MG TABLET PO SCH (09:03)
[2017-08-18] MEDS: clonazePAM 0.5 MG TABLET PO SCH (09:03)
[2017-08-18 09:13] LABS: Estimated Average Glucose 381 mg/dl; Hemoglobin A1C 14.9 %
[2017-08-18] MEDS: *HR* HYDROcodone/Acet 5/325 mg TABLET PO PRN ×2 (09:15→21:57)
--- NOTE | 2017-08-18 12:23 | Vascular/Endovas Progress Note ---
Date of Encounter: 08/18/17 Time of Encounter: 11:45 - Assessment and plan (1) PVD (peripheral vascular disease) Current Visit: Yes Status: Chronic Patient has chronic and diffuse peripheral vascular occlusive disease. Patient status post bilateral amputations. (2) Wound infection after surgery Current Visit: No Status: Acute X-ray of right femur does not demonstrate osteomyelitis. I have spoken Mona Celis RN of wound care. Dressings changes for the right AKA will be initiated. No immediate plans for surgical exploration or debridement. Recommend conservative treatment. Qualifiers: Encounter type: subsequent encounter Qualified Code(s): T81.4XXD - Infection following a procedure, subsequent encounter (3) Chronic deep vein thrombosis (DVT) Current Visit: Yes Status: Chronic Patient has bilateral lower extremity chronic DVT. This is greater on the right lower extremity than on the left lower extremity. Qualifiers: DVT location: lower extremity Laterality: bilateral Qualified Code(s): I82.503 - Chronic embolism and thrombosis of unspecified deep veins of lower extremity, bilateral (4) Diabetes Current Visit: Yes Status: Chronic Poorly controlled diabetes. Qualifiers: Diabetes mellitus type: type 2 Diabetes mellitus chcf insulin use: with termite technician use Diabetes mellitus complication status: with circulatory complication Diabetes mellitus complication detail: with other circulatory complications Qualified Code(s): E11.59 - Type 2 diabetes mellitus with other circulatory complications; Z79.4 - correction (current) use of insulin; Z79.4 - correction (current) use of insulin; Z79.4 - correction (current) use of insulin; Z79.4 - superintendent terminal (current) use of insulin - Subjective Interval history: No new complaints overnight. Vital Signs, Last 4 Hours Temp Pulse Resp BP Pulse Ox 08/18/17 11:19 98.4 F 98 17 136/76 97 - Physical Examination General: Present: Conversant, No Apparent Distress Results 08/18/17 03:27 08/18/17 03:27 Lab Results, Last 24 hours 08/17/17 08/17/17 08/17/17 15:58 15:58 15:58 WBC 16.8 H Hgb 10.7 L Hct 35.2 L Plt Count 848 H INR 1.2 APTT 37.7 H Sodium 135 L Potassium 4.4 Chloride 104 Carbon Dioxide 27 BUN 20 Creatinine 0.87 Glucose 194 H Calcium 9.1 08/18/17 08/18/17 03:27 03:27 WBC 14.4 H Hgb 10.1 L Hct 32.9 L Plt Count 805 H INR APTT Sodium 136 Potassium 4.0 Chloride 104 Carbon Dioxide 26 BUN 17 Creatinine 0.86 Glucose 107 H Calcium 9.1 - Imaging / Other Tests Other Results: Femur x-ray demonstrates no signs of osteomyelitis Consult Discharge Plan - Plan Referrals: Suleman Fonseca MD [Primary Care Provider] -
--- NOTE | 2017-08-18 18:40 | Internal Med Progress Note ---
Date of Encounter: 08/18/17 Time of Encounter: 09:49 - Assessment and plan (1) CAD (coronary artery disease) Current Visit: Yes Status: Chronic Assessment and plan: She continues to deny chest pain. Continue Plavix and Xarelto. Qualifiers: Coronary Disease-Associated Artery/Lesion type: bypass graft [place] vs. transplanted heart: [place] heart Associated angina: without angina Qualified Code(s): I25.810 - Atherosclerosis of coronary artery bypass graft(s) without angina pectoris (2) Cellulitis Current Visit: Yes Status: Acute Assessment and plan: Continue vancomycin and Zosyn, narrow antibiotic after cultures are available. Continue to elevate the affected limb, right lower extremity. Wound care is following, wet-to-dry dressings until he was evaluated by vascular , now patient using [employer]. Patient with reported falls onto stomps creating wounds. He is been seen by wound care outpatient for nonhealing stump incision. Qualifiers: Site of cellulitis: extremity Site of cellulitis of extremity: lower extremity Laterality: right Qualified Code(s): L03.115 - Cellulitis of right lower limb (3) Chronic deep vein thrombosis (DVT) Current Visit: Yes Status: Chronic Assessment and plan: Chronic DVTs bilaterally. Dr. Yanes is following. Continue Xarelto. Qualifiers: DVT location: lower extremity Laterality: bilateral Qualified Code(s): I82.503 - Chronic embolism and thrombosis of unspecified deep veins of lower extremity, bilateral (4) PVD (peripheral vascular disease) Current Visit: Yes Status: Chronic Assessment and plan: Chronic. Patient had lower extremity arterial duplex that showed occlusion of right lower extremity, occlusion of left lower extremity. Dr. Yanes is following. I appreciate his recommendations consultation. (5) Depression Current Visit: Yes Status: Acute Assessment and plan: Patient currently taking Zoloft. Patient is verbally aggressive with all staff members and states that he wishes he were and that there is nothing good about being alive. He denies suicidal ideations and states that he would not be physically able to harm himself. Psychiatric consult in and pending. Qualifiers: Depression Type: unspecified Qualified Code(s): F32.9 - Major depressive disorder, single episode, unspecified (6) DM2 (diabetes mellitus, type 2) Current Visit: Yes Status: Chronic Assessment and plan: Continue sliding scale insulin, Accu-Cheks before meals and at bedtime, diabetic diet. Diabetes uncontrolled with A1c 14.9%. Qualifiers: Diabetes mellitus chcf insulin use: with chcf use Diabetes mellitus complication status: with circulatory complication Diabetes mellitus complication detail: with other circulatory complications Qualified Code(s): E11.59 - Type 2 diabetes mellitus with other circulatory complications; Z79.4 - halfway (current) use of insulin; Z79.4 - keno terminal operator (current) use of insulin; Z79.4 - halfway (current) use of insulin; Z79.4 - halfway (current) use of insulin (7) DVT prophylaxis Current Visit: No Status: Acute - Time Spent With Patient less than 15 minutes - Subjective Interval history: Patient was seen and assessed up at 0949 AM. Patient again today appears to be very depressed, verbally aggressive, tells me to leave. States that he does not know why I am making him him take deep breaths to listen to his lungs and that no one is ever done that before. Assessment was difficult to complete. Psychiatry consultation as an and pending He denies headache, n/v/d, abdominal pain or chest pain. - Constitutional Vitals: Temp Pulse Resp BP Pulse Ox 98.4 F 103 20 136/76 92 08/18/17 17:08 08/18/17 17:08 08/18/17 17:08 08/18/17 17:08 08/18/17 17:08 General appearance: Present: cooperative, A&O X 3, no acute distress, answers questions appropriately - Head Head exam: Present: atraumatic, normocephalic - Eye Eye exam: Present: normal appearance, conjuntiva pink, sclera anicteric - Neck Neck exam general surgery: Present: supple, trachea midline. Absent: lymphadenopathy, tenderness - Respiratory Respiratory exam: Absent: accessory muscle use, chest wall tenderness, rales, respiratory distress, rhonchi, wheezes - Cardiovascular Cardiovascular exam: Present: RRR, +S1, +S2. Absent: diastolic murmur, gallop, rubs, systolic murmur - GI/Abdominal GI/Abdominal exam: Present: normal bowel sounds, soft. Absent: distended, hepatomegaly, tenderness - Extremities Exam Extremities exam: Present: normal capillary refill, normal inspection, warm, radial pulses palpable and symmetrical. Absent: calf tenderness, cyanotic, pedal edema, tenderness - Neurological Exam Neurological exam: Present: alert, oriented X3, no focal deficits. Absent: facial droop, speech deficit - Skin Skin exam: Present: dry, intact, normal color, warm. Absent: rash Internal Medicine: Result - Labs CBC & Chem 7: 08/18/17 03:27 08/18/17 03:27 Labs: Short CBC 08/18/17 Range/Units 03:27 WBC 14.4 H (4.3-11.1) K/mcL Hgb 10.1 L (12.9-16.9) g/dL Hct 32.9 L (37.5-50.1) % Plt Count 805 H (140-400) K/mcL Neutrophils # 8.0 (1.6-8.9) K/mcL BMP 08/18/17 03:27 Sodium 136 Potassium 4.0 Chloride 104 Carbon Dioxide 26 BUN 17 Creatinine 0.86 Glucose 107 H Calcium 9.1 - ABG Interpretation ABG results: PT/INR, D-dimer PT 12.8 Seconds (9.4-12.1) H 08/17/17 15:58 - Impressions Impressions Femur X-Ray 08/17/17 19:40 IMPRESSION: Periosteal reaction at the amputation margin of the femur is nonspecific given the recent surgery. Findings could be due to postoperative change or infection. D/ / 08/17/2017 20:51:24 Zenon Can MD / [facility] Interpreting Provider: Zenon Can MD Consult Discharge Plan - Plan Referrals: Suleman Fonseca MD [Primary Care Provider] -
[2017-08-19] MEDS: *HR* HYDROcodone/Acet 5/325 mg TABLET PO PRN ×3 (05:17→18:15)
[2017-08-19] MEDS: Insulin LISPRO 300 UNITS/3 ML VIAL SQ SCH ×4 (05:20→23:44)
[2017-08-19 06:01] LABS: Basophils # 0.1 K/mcL (0.0-0.2); Basophils % 0.5 %; Eosinophils # 0.5 K/mcL (0.0-0.6); Eosinophils % 3.8 %; Hemoglobin 10.4 g/dL (12.9-16.9); Immature Granulocytes % 1.2 % (0-4); Lymphocytes # 3.4 K/mcL (0.6-4.6); Lymphocytes % 26.5 %; Mean Corpuscular HGB Conc 30.6 g/dL (31.6-35.5); Mean Corpuscular Hemoglobin 25.1 pg (28.0-33.3); Mean Corpuscular Volume 82.1 fL (83.0-100.0); Mean Platelet Volume 9.2 fL (9.4-12.4); Monocytes # 1.2 K/mcL (0.0-1.3); Monocytes % 9.6 %; Neutrophils # 7.5 K/mcL (1.6-8.9); Platelet Count 778 K/mcL (140-400); Red Blood Count 4.14 M/mcL (4.19-5.50); Red Cell Distribution Width 16.1 % (11.5-14.5); Segmented Neutrophils % 58.4 %
[2017-08-19 06:06] LABS: BUN/Creatinine Ratio 22 (6-26); Blood Urea Nitrogen 17 mg/dL (6-20); Carbon Dioxide 27 mEq/L (23-29); Chloride 105 mEq/L (98-107); Glucose 195 mg/dL (70-105); Osmolality,Calculated 289 (280-300); Potassium 4.2 mEq/L (3.5-5.1); Sodium 136 mEq/L (136-145); eGFR For African Americans > 60 (> 60); eGFR For Non-African Americans > 60 (> 60)
[2017-08-19] MEDS: *HR* Rivaroxaban 10 MG TABLET PO SCH (10:41)
[2017-08-19] MEDS: tiZANidine 4 MG TABLET PO PRN (10:41)
[2017-08-19] MEDS: clonazePAM 0.5 MG TABLET PO SCH (10:41)
--- NOTE | 2017-08-19 14:13 | Psychiatry Progress Note ---
Date of Encounter: 08/19/17 Time of Encounter: 14:00 Subjective Interval history: Patient admitted for treatment of cellulitis PVD DVT diabetes and coronary heart disease. Psychiatric consultation was requested to evaluate depression and no suicidal ideation. Patient had no previous mental health history or admissions on the records. Patient refused to be evaluated he was angry and irritable and not willing to be interviewed. There are no adequate information to diagnose auditory depression at this time. Continue medical care to stabilize the patient and provided more information regarding mental illness issues. Results - Vital Signs Vital Signs: Temp Pulse Resp BP Pulse Ox 98.4 F 97 16 106/71 100 08/19/17 10:23 08/19/17 10:23 08/19/17 10:23 08/19/17 10:23 08/19/17 10:23 - Labs Labs: Laboratory Results - last 24 hr 08/19/17 08/19/17 08/19/17 04:50 04:50 05:19 WBC 12.8 H RBC 4.14 L Hgb 10.4 L Hct 34.0 L MCV 82.1 L MCH 25.1 L MCHC 30.6 L RDW 16.1 H Plt Count 778 H MPV 9.2 L Immature Gran % 1.2 Seg Neutrophils % 58.4 Lymphocytes % 26.5 Monocytes % 9.6 Eosinophils % 3.8 Basophils % 0.5 Neutrophils # 7.5 Lymphocytes # 3.4 Monocytes # 1.2 Eosinophils # 0.5 Basophils # 0.1 Sodium 136 Potassium 4.2 Chloride 105 Carbon Dioxide 27 BUN 17 Creatinine 0.79 Est GFR ( Amer) > 60 Est GFR (Non-Af Amer) > 60 BUN/Creatinine Ratio 22 Glucose 195 H POC Glucose 203 H Calculated Osmolality 289 Calcium 9.0 - Impressions ITS Impressions Femur X-Ray 08/17/17 19:40 IMPRESSION: Periosteal reaction at the amputation margin of the femur is nonspecific given the recent surgery. Findings could be due to postoperative change or infection. D/ / 08/17/2017 20:51:24 Zenon Can MD / [facility] Interpreting Provider: Zenon Can MD Assessment and Plan (1) Delirium due to conditions classified elsewhere Current visit: No Status: Acute Plan: Continue hospitalization, Close observation, Suicide Precautions per unit protocol, Encourage participation in unit milieu, Group Therapy, Monitor sleep, Monitor appetite Additional Plan: Patient refused to be evaluated, currently under treatment for cellulitis. Continue medical stabilization and provided more information about mental status issues. Risks, benefits, side effects, alternatives discussed w/pt: No Patient agreeable to treatment: No (Patient refused) Consult Discharge Plan - Plan Referrals: Suleman Fonseca MD [Primary Care Provider] - Psychiatry Exam - Constitutional Vitals: Temp Pulse Resp BP Pulse Ox 98.4 F 97 16 106/71 100 08/19/17 10:08/19/17 10:23 08/19/17 10:23 08/19/17 10:08/19/17 10:23 General appearance: age & developmentally appropriate, well-nourished, unkempt, thin - Musculoskeletal Gait: normal Station: relaxed Strength & Tone: normal for patient - Psychiatric Patient Orientation: Yes Person, Yes Time, Yes Place Level of alertness: Alert Behavior: agitated, hostile, uncooperative Psychomotor activity: Normal Eye Contact: Minimal Contact Mood Description: Angry, Irritable Affect description: other (Agitated) Speech Volume: Normal Speech pattern: Inappropriate to situation, rambling Language & Vocabulary: consistent with education Thought Content: No Suicidal ideation, No Homicidal ideation, No Overt delusions Perceptual Disturbances: No Auditory hallucinations, No Visual hallucinations Attention Span Ability: Capable of Focused Attention Memory Description: Grossly Intact Patient Reliability: Not Reliable Historian Fund of knowledge: Yes abstraction ability, Yes aware of current events Intelligence Estimate: Average Judgment: Limited Insight: Partial
[2017-08-19] MEDS ORDERED: Aminoglycoside Consult 1 EACH MC ONE (16:26)
--- NOTE | 2017-08-19 18:12 | Internal Med Progress Note ---
Date of Encounter: 08/19/17 Time of Encounter: 09:05 - Assessment and plan (1) CAD (coronary artery disease) Current Visit: Yes Status: Chronic Assessment and plan: No chest pain. Continue Plavix and Xarelto Qualifiers: Coronary Disease-Associated Artery/Lesion type: bypass graft [place] vs. transplanted heart: [place] heart Associated angina: without angina Qualified Code(s): I25.810 - Atherosclerosis of coronary artery bypass graft(s) without angina pectoris (2) Cellulitis Current Visit: Yes Status: Acute Assessment and plan: Wound culture today reveals gram-negative rods. Continue antibiotics, narrow when sensitivity available. Wound care is monitoring bilateral lower extremity wounds. Blood cultures are negative. Continue to elevate the affected right lower extremity. Leukocytosis is improving. He has no fever and no hypotension. Sepsis criteria met with tachycardia, source of infection, leukocytosis. Qualifiers: Site of cellulitis: extremity Site of cellulitis of extremity: lower extremity Laterality: right Qualified Code(s): L03.115 - Cellulitis of right lower limb (3) Chronic deep vein thrombosis (DVT) Current Visit: Yes Status: Chronic Assessment and plan: Patient with chronic DVTs bilaterally. Dr. Yanes has seen patient and is following. Continue Xarelto. Qualifiers: DVT location: lower extremity Laterality: bilateral Qualified Code(s): I82.503 - Chronic embolism and thrombosis of unspecified deep veins of lower extremity, bilateral (4) PVD (peripheral vascular disease) Current Visit: Yes Status: Chronic Assessment and plan: Chronic. Pt with LE extremity duplex, occulsion of BLE. Dr. Tavares is following, I appreciate his consultation and recommendations. (5) Depression Current Visit: Yes Status: Acute Assessment and plan: Patient is currently taking Zoloft. Patient appears to be depressed and states that he wishes he were , that is nothing good about being alive, he is verbally aggressive with staff, requests to be left alone. He denies any suicidal ideations, no homicidal ideations. Psychiatrist attempted to see patient today, patient declined. Psychiatry has not signed off, most likely will attempt to see patient again. Continue home medications Qualifiers: Depression Type: unspecified Qualified Code(s): F32.9 - Major depressive disorder, single episode, unspecified (6) DM2 (diabetes mellitus, type 2) Current Visit: Yes Status: Chronic Assessment and plan: Continue sliding scale insulin, Accu-Cheks achs, diabetic diet. Diabetes uncontrolled with A1c 14.9%. Qualifiers: Diabetes mellitus intermediate project manager insulin use: with intermediate project manager use Diabetes mellitus complication status: with circulatory complication Diabetes mellitus complication detail: with other circulatory complications Qualified Code(s): E11.59 - Type 2 diabetes mellitus with other circulatory complications; Z79.4 - half-way (current) use of insulin; Z79.4 - intermediate project manager (current) use of insulin; Z79.4 - intermediate project manager (current) use of insulin; Z79.4 - intermediate project manager (current) use of insulin (7) DVT prophylaxis Current Visit: Yes Status: Acute Assessment and plan: Pt on Xarelto. - Time Spent With Patient less than 15 minutes - Subjective Interval history: Patient was seen and assessed up at 0905 AM. Patient again today appears to be very depressed, states again that he does not know what is good about the day and that I should stop talking to him. Patient again states today that he is unable to take a deep breath, "I have never taken a deep breath." Assessment was difficult to complete. Psychiatry did not see patient due to his refusal. He denies headache, n/v/d, abdominal pain or chest pain. - Constitutional Vitals: Temp Pulse Resp BP Pulse Ox 98.4 F 96 16 121/77 97 08/19/17 16:18 18 16:18 08/19/17 16:18 08/19/17 16:18 08/19/17 16:18 General appearance: Present: cooperative, A&O X 3, pleasant, no acute distress, answers questions appropriately - Head Head exam: Present: atraumatic, normal inspection, normocephalic - Eye Eye exam: Present: normal appearance, conjuntiva pink, sclera anicteric - Neck Neck exam general surgery: Present: normal inspection, supple, trachea midline. Absent: lymphadenopathy, tenderness - Respiratory Respiratory exam: Present: CTAB. Absent: accessory muscle use, rales, rhonchi, wheezes - Cardiovascular Cardiovascular exam: Present: RRR, +S1, +S2. Absent: diastolic murmur, gallop, rubs, systolic murmur - GI/Abdominal GI/Abdominal exam: Present: normal bowel sounds, soft, no peritoneal signs. Absent: distended, hepatomegaly, tenderness - Extremities Exam Extremities exam: Present: normal capillary refill, warm, radial pulses palpable and symmetrical. Absent: calf tenderness, cyanotic, pedal edema, tenderness - Neurological Exam Neurological exam: Present: alert, oriented X3, no focal deficits. Absent: facial droop, speech deficit - Skin Skin exam: Present: dry, intact, normal color, warm. Absent: rash Internal Medicine: Result - Labs CBC & Chem 7: 08/19/17 04:50 08/19/17 04:50 Labs: Short CBC 08/19/17 Range/Units 04:50 WBC 12.8 H (4.3-11.1) K/mcL Hgb 10.4 L (12.9-16.9) g/dL Hct 34.0 L (37.5-50.1) % Plt Count 778 H (140-400) K/mcL Neutrophils # 7.5 (1.6-8.9) K/mcL BMP 08/19/17 04:50 Sodium 136 Potassium 4.2 Chloride 105 Carbon Dioxide 27 BUN 17 Creatinine 0.79 Glucose 195 H Calcium 9.0 - ABG Interpretation ABG results: PT/INR, D-dimer PT 12.8 Seconds (9.4-12.1) H 08/17/17 15:58 Consult Discharge Plan - Plan Referrals: Suleman Fonseca MD [Primary Care Provider] -
--- NOTE | 2017-08-19 18:26 | Vascular/[facility] Progress Note ---
Date of Encounter: 08/19/17 Time of Encounter: 18:23 - Assessment and plan (1) PVD (peripheral vascular disease) Current Visit: Yes Status: Chronic Patient has chronic and diffuse peripheral vascular occlusive disease. Patient status post bilateral amputations. (2) Wound infection after surgery Current Visit: No Status: Acute The right thigh is less sensitive to manipulation. The patient continues to have serosanguineous drainage. There is no purulent present. I recommended that the patient cooperate so that we can perform dressing changes twice a day. I informed him that his white blood cell count is improving. There is no gross signs of sepsis. I suggested that continued dressing changes in the hospital twice a day and then having home health nurses come to his home when discharged and perform the dressing change once a day that I would anticipate he will have continued improvement. The patient states that the nurse it only been coming twice a week prior to admission and he was doing dressing changes the other 5 days of the week but he was unable to pack the wounds. Qualifiers: Encounter type: subsequent encounter Qualified Code(s): T81.4XXD - Infection following a procedure, subsequent encounter (3) Chronic deep vein thrombosis (DVT) Current Visit: Yes Status: Chronic Patient has bilateral lower extremity chronic DVT. This is greater on the right lower extremity than on the left lower extremity. Qualifiers: DVT location: lower extremity Laterality: bilateral Qualified Code(s): I82.503 - Chronic embolism and thrombosis of unspecified deep veins of lower extremity, bilateral (4) Diabetes Current Visit: Yes Status: Chronic Poorly controlled diabetes. Qualifiers: Diabetes mellitus type: type 2 Diabetes mellitus terminal operations manager insulin use: with senior care use Diabetes mellitus complication status: with circulatory complication Diabetes mellitus complication detail: with other circulatory complications Qualified Code(s): E11.59 - Type 2 diabetes mellitus with other circulatory complications; Z79.4 - senior care (current) use of insulin; Z79.4 - senior care (current) use of insulin; Z79.4 - local intermodal truck driver (current) use of insulin; Z79.4 - local intermodal truck driver (current) use of insulin - Subjective Interval history: The patient has no new complaints. He states he has had a "boring" day. Vital Signs, Last 4 Hours Temp Pulse Resp BP Pulse Ox 08/19/17 16:18 98.4 F 96 16 121/77 97 - Physical Examination General: Present: No Apparent Distress HEENT: Present: Atraumatic Neck: Absent: JVD Neuro: Present: Alert and responsive, No focal deficits noted Vascular: Present: Amputation(s) (The right mfvoj-ouk-roxg amputation site demonstrates serosanguineous drainage. There is no edema. There is no streaking. There are no blood formations. There is no signs of fasciitis. The area is not tender to touch. The 2 wounds are present. The packing and the wounds apparently has become dislodged as it is not present at this time.) Results 08/19/17 04:50 08/19/17 04:50 Lab Results, Last 24 hours 08/19/17 08/19/17 04:50 04:50 WBC 12.8 H Hgb 10.4 L Hct 34.0 L Plt Count 778 H Sodium 136 Potassium 4.2 Chloride 105 Carbon Dioxide 27 BUN 17 Creatinine 0.79 Glucose 195 H Calcium 9.0 Consult Discharge Plan - Plan Referrals: Suleman Fonseca MD [Primary Care Provider] -
[2017-08-20] MEDS: *HR* HYDROcodone/Acet 5/325 mg TABLET PO PRN ×2 (02:08→23:42)
[2017-08-20] MEDS: 0.9 % Sodium Chloride 1,000 ML IVC SCH ×2 (02:09→14:18)
[2017-08-20 02:26] LABS: BUN/Creatinine Ratio 23 (6-26); Blood Urea Nitrogen 19 mg/dL (6-20); Carbon Dioxide 24 mEq/L (23-29); Chloride 105 mEq/L (98-107); Glucose 175 mg/dL (70-105); Osmolality,Calculated 289 (280-300); Potassium 3.9 mEq/L (3.5-5.1); Sodium 136 mEq/L (136-145); eGFR For African Americans > 60 (> 60); eGFR For Non-African Americans > 60 (> 60)
[2017-08-20 02:28] LABS: Basophils # 0.1 K/mcL (0.0-0.2); Basophils % 0.5 %; Eosinophils # 0.6 K/mcL (0.0-0.6); Eosinophils % 5.1 %; Hematocrit 32.6 % (37.5-50.1); Hemoglobin 10.1 g/dL (12.9-16.9); Immature Granulocytes % 1.1 % (0-4); Mean Corpuscular Hemoglobin 25.2 pg (28.0-33.3); Mean Corpuscular Volume 81.3 fL (83.0-100.0); Mean Platelet Volume 9.1 fL (9.4-12.4); Monocytes # 1.2 K/mcL (0.0-1.3); Neutrophils # 6.4 K/mcL (1.6-8.9); Platelet Count 789 K/mcL (140-400); Red Blood Count 4.01 M/mcL (4.19-5.50); Red Cell Distribution Width 15.9 % (11.5-14.5); Segmented Neutrophils % 51.3 %
[2017-08-20] MEDS: Insulin LISPRO 300 UNITS/3 ML VIAL SQ SCH ×4 (06:14→22:33)
[2017-08-20] MEDS: Sucralfate 1 GM TABLET PO SCH ×4 (10:51→22:02)
[2017-08-20] MEDS: Gabapentin 400 MG CAPSULE PO SCH ×3 (10:51→22:02)
[2017-08-20] MEDS: clonazePAM 0.5 MG TABLET PO SCH (10:51)
[2017-08-20] MEDS: Fenofibrate 54 MG TABLET PO SCH (10:52)
[2017-08-20] MEDS: Isosorbide MONOnitrate (24 HR) 30 MG TAB.ER.24H PO SCH (10:52)
[2017-08-20] MEDS: Levofloxacin 750 MG/150 ML 750 MG/150 ML BAG IVPB SCH (10:52)
[2017-08-20] MEDS: *HR* Rivaroxaban 10 MG TABLET PO SCH (10:52)
--- NOTE | 2017-08-20 11:03 | Vascular/[facility] Progress Note ---
Date of Encounter: 08/20/17 Time of Encounter: 10:30 - Assessment and plan (1) PVD (peripheral vascular disease) Current Visit: Yes Status: Chronic Patient has chronic and diffuse peripheral vascular occlusive disease. Patient status post bilateral amputations. (2) Wound infection after surgery Current Visit: No Status: Acute The right mhuiu-rgy-ngjh amputation site continues to improve clinically. There was no tenderness to manipulation today except on the probing with the sterile Q -tips into the wounds. There is no erythema. The cultures were identified as Serratia marcescens with sensitivity to all the antibiotics except for cephalothin. The patient continues to improve clinically. There is no indication for surgery. The wound appears to be secondary to trauma rather than surgical complication. As noted yesterday I would recommend that the packing be performed on a twice a day basis while in the hospital. Once the patient is discharged recommend that the packing be performed once a day with home nurse continuing to use [employer]. Follow-up with wound clinic on a chronic basis for wound management. Surgical revision of the wsfic-rzq-swlo amputation is not anticipated in the near future. Patient may be discharged to home as early as Tuesday from the vascular surgery perspective once the necessary arrangements have been made for home health care. Qualifiers: Encounter type: subsequent encounter Qualified Code(s): T81.4XXD - Infection following a procedure, subsequent encounter (3) Chronic deep vein thrombosis (DVT) Current Visit: Yes Status: Chronic Patient has bilateral lower extremity chronic DVT. This is greater on the right lower extremity than on the left lower extremity. Qualifiers: DVT location: lower extremity Laterality: bilateral Qualified Code(s): I82.503 - Chronic embolism and thrombosis of unspecified deep veins of lower extremity, bilateral (4) Diabetes Current Visit: Yes Status: Chronic Poorly controlled diabetes. Qualifiers: Diabetes mellitus type: type 2 Diabetes mellitus senior care insulin use: with senior care use Diabetes mellitus complication status: with circulatory complication Diabetes mellitus complication detail: with other circulatory complications Qualified Code(s): E11.59 - Type 2 diabetes mellitus with other circulatory complications; Z79.4 - penitentiary (current) use of insulin; Z79.4 - penitentiary (current) use of insulin; Z79.4 - penitentiary (current) use of insulin; Z79.4 - penitentiary (current) use of insulin - Subjective Interval history: The patient has no new complaints. He states that the right leg is feeling better. Vital Signs, Last 4 Hours Temp Pulse Resp BP Pulse Ox 08/20/17 10:51 97.8 F 58 16 129/68 94 - Physical Examination General: Present: Conversant, No Apparent Distress HEENT: Present: Atraumatic Vascular: Present: Amputation(s) (Right above-knee amputation site was evaluated. The packing was removed. The 2 ulcer sites were gently probed with sterile Q-tips. The central wound is the deeper the 2 wounds and measures approximately 1-1/2 cm in depth. I could identify no loculated fluid or. There is no odor. The more medial wound is approximately three quarters of centimeter in depth. There is no tracking. There was no abscess present. There are no signs of external cellulitis with erythema or edema.) Results 08/20/17 01:46 08/20/17 01:46 Lab Results, Last 24 hours 08/20/17 08/20/17 01:46 01:46 WBC 12.4 H Hgb 10.1 L Hct 32.6 L Plt Count 789 H Sodium 136 Potassium 3.9 Chloride 105 Carbon Dioxide 24 BUN 19 Creatinine 0.81 Glucose 175 H Calcium 9.0 Consult Discharge Plan - Plan Referrals: Suleman Fonseca MD [Primary Care Provider] -
[2017-08-20] MEDS ORDERED: 0.9 % Sodium Chloride 500 ML IVC ONE (11:58)
--- NOTE | 2017-08-20 16:02 | Internal Med Progress Note ---
Date of Encounter: 08/20/17 Time of Encounter: 09:20 - Assessment and plan (1) CAD (coronary artery disease) Current Visit: Yes Status: Chronic Assessment and plan: No chest pain. Continue Plavix and Xarelto S1S2 heard without gallops, clicks, murmurs, or rubs. Qualifiers: Coronary Disease-Associated Artery/Lesion type: bypass graft [place] vs. transplanted heart: [place] heart Associated angina: without angina Qualified Code(s): I25.810 - Atherosclerosis of coronary artery bypass graft(s) without angina pectoris (2) Cellulitis Current Visit: Yes Status: Acute Assessment and plan: Wound culture final: Serratia marcescens. Antibiotic changed to Levaquin 750mg IV. Wound care is monitoring bilateral lower extremity wounds. Blood cultures are negative. Continue to elevate the affected right lower extremity. Leukocytosis is improving. He has no fever. Sepsis criteria met with tachycardia, source of infection, leukocytosis. Qualifiers: Site of cellulitis: extremity Site of cellulitis of extremity: lower extremity Laterality: right Qualified Code(s): L03.115 - Cellulitis of right lower limb (3) Chronic deep vein thrombosis (DVT) Current Visit: Yes Status: Chronic Assessment and plan: Patient with chronic DVTs bilaterally. Dr. Yanes has seen patient and is following. Continue Xarelto. Per US report: Unilateral lower extremity venous duplex exam completed. Partial chronic DVT in the right Iliac V, CFV, and SFV. Left contralateral comparison appears to be partially occluded in the CFV as well. Incidental finding discussed with Dr. Holm in reference to diminished arterial flow. Bilateral lower extremity arterial duplex completed. Occlusion of the right LE starting at the GAMBLING SUPERVISOR. Occlusion of the left LE starting at the proximal SFA. Qualifiers: DVT location: lower extremity Laterality: bilateral Qualified Code(s): I82.503 - Chronic embolism and thrombosis of unspecified deep veins of lower extremity, bilateral (4) PVD (peripheral vascular disease) Current Visit: Yes Status: Chronic Assessment and plan: Chronic. Pt with LE extremity duplex, occulsion of BLE. Report as above. Dr. Tavares is following, I appreciate his consultation and recommendations. Pt has chronic and diffuse peripheral vascular occlusive disease, s/p BLE amputations. (5) Depression Current Visit: Yes Status: Acute Assessment and plan: Patient is currently taking Zoloft, continue home dose. Pt states today that he is going to "smack the person in the face who told that crazy doctor that I wanted to kill myself." He has denied suicidal ideations, no homicidal ideations. Psychiatrist attempted to see patient 08/19/17, patient declined. Psychiatry has not signed off, most likely will attempt to see patient again. Continue home medications Qualifiers: Depression Type: unspecified Qualified Code(s): F32.9 - Major depressive disorder, single episode, unspecified (6) DM2 (diabetes mellitus, type 2) Current Visit: Yes Status: Chronic Assessment and plan: Continue sliding scale insulin, Accu-Cheks achs, diabetic diet. Diabetes uncontrolled with A1c 14.9%. Qualifiers: Diabetes mellitus assisted insulin use: with assisted use Diabetes mellitus complication status: with circulatory complication Diabetes mellitus complication detail: with other circulatory complications Qualified Code(s): E11.59 - Type 2 diabetes mellitus with other circulatory complications; Z79.4 - terminal block assembler (current) use of insulin; Z79.4 - terminal block assembler (current) use of insulin; Z79.4 - [facility] (current) use of insulin; Z79.4 - terminal block assembler (current) use of insulin (7) DVT prophylaxis Current Visit: Yes Status: Acute Assessment and plan: Pt on Xarelto for chronic DVT. - Time Spent With Patient less than 15 minutes - Subjective Interval history: Patient was seen and assessed up at 0920 AM. Patient again states today that he is unable to take a deep breath and basically refuses to breathe when asked to so I can assess his lung sounds. Assessment was again difficult to complete. He denies headache, n/v/d, abdominal pain or chest pain. Pt states that he has to go today because "I have things to do." - Constitutional Vitals: Temp Pulse Resp BP Pulse Ox 98.7 F 101 16 105/63 96 08/20/17 15:30 08/20/17 15:30 08/20/17 15:30 08/20/17 15:30 08/20/17 15:30 General appearance: Present: cooperative, A&O X 3, pleasant, no acute distress, answers questions appropriately - Head Head exam: Present: atraumatic, normal inspection, normocephalic - Eye Eye exam: Present: conjuntiva pink, sclera anicteric - Neck Neck exam general surgery: Present: normal inspection, supple, trachea midline. Absent: lymphadenopathy, tenderness - Respiratory Respiratory exam: Present: decreased breath sounds, CTAB. Absent: accessory muscle use, chest wall tenderness, rales, respiratory distress, rhonchi, wheezes - Cardiovascular Cardiovascular exam: Present: RRR, +S1, +S2. Absent: diastolic murmur, gallop, rubs, systolic murmur - GI/Abdominal GI/Abdominal exam: Present: normal bowel sounds, soft. Absent: distended, hepatomegaly, tenderness - Extremities Exam Extremities exam: Present: normal capillary refill, normal inspection, warm, radial pulses palpable and symmetrical. Absent: calf tenderness, cyanotic, pedal edema, tenderness - Neurological Exam Neurological exam: Present: alert, oriented X3, no focal deficits. Absent: facial droop, speech deficit - Skin Skin exam: Present: dry, intact, normal color, warm. Absent: rash Additional comments: Wounds to bilateral lower extremities. Internal Medicine: Result - Labs CBC & Chem 7: 08/20/17 01:46 08/20/17 01:46 Labs: Short CBC 08/20/17 Range/Units 01:46 WBC 12.4 H (4.3-11.1) K/mcL Hgb 10.1 L (12.9-16.9) g/dL Hct 32.6 L (37.5-50.1) % Plt Count 789 H (140-400) K/mcL Neutrophils # 6.4 (1.6-8.9) K/mcL BMP 08/20/17 01:46 Sodium 136 Potassium 3.9 Chloride 105 Carbon Dioxide 24 BUN 19 Creatinine 0.81 Glucose 175 H Calcium 9.0 - ABG Interpretation ABG results: PT/INR, D-dimer PT 12.8 Seconds (9.4-12.1) H 08/17/17 15:58 - Impressions Impressions Femur X-Ray 08/17/17 19:40 IMPRESSION: Periosteal reaction at the amputation margin of the femur is nonspecific given the recent surgery. Findings could be due to postoperative change or infection. D/ / 08/17/2017 20:51:24 Zenon Can MD / [facility] Interpreting Provider: Zenon Can MD Consult Discharge Plan - Plan Referrals: Suleman Fonseca MD [Primary Care Provider] -
[2017-08-21] MEDS: 0.9 % Sodium Chloride 1,000 ML IVC SCH ×2 (00:16→11:53)
[2017-08-21 07:37] LABS: Basophils # 0.1 K/mcL (0.0-0.2); Basophils % 0.4 %; Eosinophils # 0.5 K/mcL (0.0-0.6); Eosinophils % 3.9 %; Hematocrit 29.4 % (37.5-50.1); Lymphocytes # 4.1 K/mcL (0.6-4.6); Lymphocytes % 33.2 %; Mean Corpuscular HGB Conc 30.6 g/dL (31.6-35.5); Mean Corpuscular Hemoglobin 25.2 pg (28.0-33.3); Mean Corpuscular Volume 82.4 fL (83.0-100.0); Mean Platelet Volume 9.5 fL (9.4-12.4); Monocytes # 1.2 K/mcL (0.0-1.3); Monocytes % 9.8 %; Neutrophils # 6.3 K/mcL (1.6-8.9); Nucleated Red Blood Cells 0.2 /100 WBC (0); Platelet Count 672 K/mcL (140-400); Red Blood Count 3.57 M/mcL (4.19-5.50); Red Cell Distribution Width 15.9 % (11.5-14.5); Segmented Neutrophils % 51.7 %
[2017-08-21] MEDS: Gabapentin 400 MG CAPSULE PO SCH ×3 (09:44→21:40)
[2017-08-21] MEDS: Isosorbide MONOnitrate (24 HR) 30 MG TAB.ER.24H PO SCH (09:44)
[2017-08-21] MEDS: *HR* Rivaroxaban 10 MG TABLET PO SCH (09:44)
[2017-08-21] MEDS: clonazePAM 0.5 MG TABLET PO SCH (09:44)
[2017-08-21] MEDS: Fenofibrate 54 MG TABLET PO SCH (09:44)
[2017-08-21] MEDS: Sucralfate 1 GM TABLET PO SCH ×4 (09:44→21:39)
[2017-08-21] MEDS: Levofloxacin 750 MG/150 ML 750 MG/150 ML BAG IVPB SCH (09:45)
[2017-08-21] MEDS: Insulin LISPRO 300 UNITS/3 ML VIAL SQ SCH ×4 (09:45→21:40)
[2017-08-21 09:46] LABS: BUN/Creatinine Ratio 21 (6-26); Blood Urea Nitrogen 16 mg/dL (6-20); Calcium 8.6 mg/dL (8.6-10.3); Carbon Dioxide 25 mEq/L (23-29); Chloride 103 mEq/L (98-107); Glucose 270 mg/dL (70-105); Osmolality,Calculated 297 (280-300); Potassium 4.2 mEq/L (3.5-5.1); Sodium 138 mEq/L (136-145); eGFR For African Americans > 60 (> 60); eGFR For Non-African Americans > 60 (> 60)
--- NOTE | 2017-08-21 11:07 | Internal Med Progress Note ---
Date of Encounter: 08/21/17 Time of Encounter: 08:50 - Assessment and plan (1) CAD (coronary artery disease) Current Visit: Yes Status: Chronic Assessment and plan: Pt denies chest pain. Continue Plavix and Xarelto S1S2 heard without gallops, clicks, murmurs, or rubs. Qualifiers: Coronary Disease-Associated Artery/Lesion type: bypass graft [place] vs. transplanted heart: [place] heart Associated angina: without angina Qualified Code(s): I25.810 - Atherosclerosis of coronary artery bypass graft(s) without angina pectoris (2) Cellulitis Current Visit: Yes Status: Acute Assessment and plan: Wound culture final: Serratia marcescens. Antibiotic changed to Levaquin 750mg IV, will change to po today. Wound care is monitoring bilateral lower extremity wounds. Blood cultures are negative. Continue to elevate the affected right lower extremity. Leukocytosis is improving, 12.2 today. He has no fever. Pt is normotensive, no tachycardia. Qualifiers: Site of cellulitis: extremity Site of cellulitis of extremity: lower extremity Laterality: right Qualified Code(s): L03.115 - Cellulitis of right lower limb (3) Chronic deep vein thrombosis (DVT) Current Visit: Yes Status: Chronic Assessment and plan: Patient with chronic DVTs bilaterally. Dr. Yanes has seen patient and is following, I appreciate his recommendation and consultation. Continue Xarelto home dose. Per US report: Unilateral lower extremity venous duplex exam completed. Partial chronic DVT in the right Iliac V, CFV, and SFV. Left contralateral comparison appears to be partially occluded in the CFV as well. Incidental finding discussed with Dr. Holm in reference to diminished arterial flow. Bilateral lower extremity arterial duplex completed. Occlusion of the right LE starting at the SUPREME COURT JUDGE. Occlusion of the left LE starting at the proximal SFA. Qualifiers: DVT location: lower extremity Laterality: bilateral Qualified Code(s): I82.503 - Chronic embolism and thrombosis of unspecified deep veins of lower extremity, bilateral (4) PVD (peripheral vascular disease) Current Visit: Yes Status: Chronic Assessment and plan: Chronic. Pt with LE extremity duplex, occulsion of BLE. Report as above. Dr. Tavares is following. Pt has chronic and diffuse peripheral vascular occlusive disease, s/p BLE amputations. (5) Depression Current Visit: Yes Status: Acute Assessment and plan: Patient is currently taking Zoloft, continue home dose. He denied suicidal ideations, no homicidal ideations. Psychiatrist attempted to see patient 08/19/17, patient declined. Psychiatry has not signed off, most likely will attempt to see patient again. Continue home medications Qualifiers: Depression Type: unspecified Qualified Code(s): F32.9 - Major depressive disorder, single episode, unspecified (6) DM2 (diabetes mellitus, type 2) Current Visit: Yes Status: Chronic Assessment and plan: Continue sliding scale insulin, Accu-Cheks achs, diabetic diet. Diabetes uncontrolled with A1c 14.9%. Qualifiers: Diabetes mellitus correction insulin use: with correction use Diabetes mellitus complication status: with circulatory complication Diabetes mellitus complication detail: with other circulatory complications Qualified Code(s): E11.59 - Type 2 diabetes mellitus with other circulatory complications; Z79.4 - assisted (current) use of insulin; Z79.4 - assisted (current) use of insulin; Z79.4 - assisted (current) use of insulin; Z79.4 - assisted (current) use of insulin (7) DVT prophylaxis Current Visit: Yes Status: Acute Assessment and plan: Pt on Xarelto for chronic DVT. Continue home dose. - Time Spent With Patient less than 15 minutes - Subjective Interval history: Patient was seen and assessed up at 0850 AM. Patient again refuses to breathe when asked to so I can assess his lung sounds. Assessment was again difficult to complete, pt noncompliant with assessment. He denies headache, n/v/d, abdominal pain or chest pain. Pt becomes angry when I asked if he lives alone or if he has help or home health for when he is discharged. Pt wants to know why I have so many questions and tells me to leave. - Constitutional Vitals: Temp Pulse Resp BP Pulse Ox 98.4 F 84 15 98/66 99 08/21/17 10:37 08/21/17 10:37 08/21/17 10:37 08/21/17 10:37 08/21/17 10:37 General appearance: Present: A&O X 3, no acute distress, answers questions appropriately. Absent: cooperative, pleasant - Head Head exam: Present: atraumatic, normocephalic - Eye Eye exam: Present: normal appearance, conjuntiva pink, sclera anicteric - Neck Neck exam general surgery: Present: tenderness, supple, trachea midline. Absent : lymphadenopathy - Respiratory Respiratory exam: Present: CTAB. Absent: accessory muscle use, chest wall tenderness, decreased breath sounds, rales, respiratory distress, rhonchi, wheezes - Cardiovascular Cardiovascular exam: Present: RRR, +S1, +S2. Absent: diastolic murmur, gallop, rubs, systolic murmur - GI/Abdominal GI/Abdominal exam: Present: normal bowel sounds, soft. Absent: distended, tenderness - Extremities Exam Extremities exam: Present: normal inspection, warm, radial pulses palpable and symmetrical. Absent: calf tenderness, cyanotic, pedal edema, tenderness Additional comments: Pt with BLE amputations - Neurological Exam Neurological exam: Present: alert, oriented X3, no focal deficits. Absent: facial droop, speech deficit - Skin Skin exam: Present: dry, intact, normal color, warm. Absent: rash Internal Medicine: Result - Labs CBC & Chem 7: 08/21/17 06:26 08/21/17 08:46 Labs: Short CBC 08/21/17 Range/Units 06:26 WBC 12.2 H (4.3-11.1) K/mcL Hgb 9.0 L (12.9-16.9) g/dL Hct 29.4 L (37.5-50.1) % Plt Count 672 H (140-400) K/mcL Neutrophils # 6.3 (1.6-8.9) K/mcL BMP 08/21/17 08:46 Sodium 138 Potassium 4.2 Chloride 103 Carbon Dioxide 25 BUN 16 Creatinine 0.78 Glucose 270 H Calcium 8.6 - ABG Interpretation ABG results: PT/INR, D-dimer PT 12.8 Seconds (9.4-12.1) H 08/17/17 15:58 Consult Discharge Plan - Plan Referrals: Suleman Fonseca MD [Primary Care Provider] -
[2017-08-21] MEDS: *HR* HYDROcodone/Acet 5/325 mg TABLET PO PRN (14:07)
[2017-08-21] MEDS: Ibuprofen 400 MG TABLET PO PRN (22:07)
[2017-08-22] MEDS: 0.9 % Sodium Chloride 1,000 ML IVC SCH ×2 (02:12→16:37)
[2017-08-22 05:49] LABS: Basophils % 0.3 %; Eosinophils # 0.4 K/mcL (0.0-0.6); Eosinophils % 3.1 %; Hematocrit 29.7 % (37.5-50.1); Immature Granulocytes % 0.6 % (0-4); Lymphocytes # 4.5 K/mcL (0.6-4.6); Lymphocytes % 33.2 %; Mean Corpuscular HGB Conc 30.3 g/dL (31.6-35.5); Mean Corpuscular Hemoglobin 25.1 pg (28.0-33.3); Mean Corpuscular Volume 82.7 fL (83.0-100.0); Mean Platelet Volume 9.3 fL (9.4-12.4); Monocytes # 1.3 K/mcL (0.0-1.3); Monocytes % 9.4 %; Neutrophils # 7.2 K/mcL (1.6-8.9); Nucleated Red Blood Cells 0.1 /100 WBC (0); Platelet Count 648 K/mcL (140-400); Red Blood Count 3.59 M/mcL (4.19-5.50); Segmented Neutrophils % 53.4 %
[2017-08-22] MEDS: Sucralfate 1 GM TABLET PO SCH ×4 (08:32→21:15)
[2017-08-22] MEDS: *HR* Rivaroxaban 10 MG TABLET PO SCH (08:32)
[2017-08-22] MEDS: Gabapentin 400 MG CAPSULE PO SCH ×3 (08:32→21:15)
[2017-08-22] MEDS: levoFLOXacin 750 MG TABLET PO SCH (08:32)
[2017-08-22] MEDS: clonazePAM 0.5 MG TABLET PO SCH (08:32)
[2017-08-22] MEDS: Isosorbide MONOnitrate (24 HR) 30 MG TAB.ER.24H PO SCH (08:33)
[2017-08-22] MEDS: Fenofibrate 54 MG TABLET PO SCH (08:33)
[2017-08-22] MEDS: Insulin LISPRO 300 UNITS/3 ML VIAL SQ SCH ×4 (08:34→21:14)
[2017-08-22] MEDS: *HR* HYDROcodone/Acet 5/325 mg TABLET PO PRN (09:24)
--- NOTE | 2017-08-22 17:07 | Discharge Summary ---
- NOTES TO OUTPATIENT PROVIDER Notes to Outpatient Provider: Pt will need monitoring for anemia and recheck for wound progression. Date of Encounter: 08/22/17 Time of Encounter: 10:05 - Discharge Diagnosis (1) CAD (coronary artery disease) Priority: Primary Status: Chronic Comments: No chest pain. Continue Plavix and Xarelto. Qualifiers: Coronary Disease-Associated Artery/Lesion type: bypass graft [place] vs. transplanted heart: [place] heart Associated angina: without angina Qualified Code(s): I25.810 - Atherosclerosis of coronary artery bypass graft(s) without angina pectoris (2) Cellulitis Priority: Secondary Status: Acute Comments: Continue Levaquin 750 mg by mouth daily 10 days. Patient started IV Levaquin on 08/20, transition to by mouth on 08/21, patient will get 1 dose on 08/22 prior to discharge, prescription for 7 days. Patient has home health, wound care nurse. Patient with leukocytosis that appears to be chronic. Follow with primary care. He has no fever, tachycardia, shortness of breath, hypertension. Patient does not meet sirs or sepsis criteria. Qualifiers: Site of cellulitis: extremity Site of cellulitis of extremity: lower extremity Laterality: right Qualified Code(s): L03.115 - Cellulitis of right lower limb (3) Chronic deep vein thrombosis (DVT) Priority: Secondary Status: Chronic Comments: Patient with chronic DVTs bilaterally. Dr. Yanes has seen patient and is following, I appreciate his recommendation and consultation. He does not feel there is any emergent need for surgery at this time. Continue Xarelto home dose. Per US report: Unilateral lower extremity venous duplex exam completed. Partial chronic DVT in the right Iliac V, CFV, and SFV. Left contralateral comparison appears to be partially occluded in the CFV as well. Incidental finding discussed with Dr. Holm in reference to diminished arterial flow. Bilateral lower extremity arterial duplex completed. Occlusion of the right LE starting at the [employer]. Occlusion of the left LE starting at the proximal SFA. Qualifiers: DVT location: lower extremity Laterality: bilateral Qualified Code(s): I82.503 - Chronic embolism and thrombosis of unspecified deep veins of lower extremity, bilateral (4) PVD (peripheral vascular disease) Priority: Secondary Status: Chronic Comments: Chronic. Patient is status post bilateral amputations. (5) Depression Priority: Secondary Status: Chronic Comments: Continue home medications. Chronic. Patient continues to deny suicidal or homicidal ideations, denies any desire to harm himself or anyone else. Psychiatric mental health exam not completed, psychiatry did not sign off yet. Will wait until complete to sign off. Qualifiers: Depression Type: unspecified Qualified Code(s): F32.9 - Major depressive disorder, single episode, unspecified (6) DM2 (diabetes mellitus, type 2) Priority: Secondary Status: Chronic Comments: Uncontrolled, pt will continue home medications and accucheck regimen, as well as diabetic diet. Recommend tighter glycemic control. Qualifiers: Diabetes mellitus silver cleaner insulin use: with silver cleaner use Diabetes mellitus complication status: with circulatory complication Diabetes mellitus complication detail: with other circulatory complications Qualified Code(s): E11.59 - Type 2 diabetes mellitus with other circulatory complications; Z79.4 - detention (current) use of insulin; Z79.4 - detention (current) use of insulin; Z79.4 - detention (current) use of insulin; Z79.4 - detention (current) use of insulin (7) DVT prophylaxis Priority: Secondary Status: Acute Comments: [place]. Hospital course: Mr. Slaughter is a 57 year old male - Time Spent with Patient Total time spent providing and/or coordinating discharge services: - Discharge Medications Prescriptions: levoFLOXacin [Levaquin] 750 mg PO DAILY #7 tablet Home Medications: Clopidogrel [Plavix] 75 mg PO DAILY 02/04/15 [History] Nitroglycerin [Nitrostat] 0.4 mg SL Q5M PRN 08/06/16 [History] Simvastatin [Zocor] 40 mg PO HS 08/06/16 [History] Aspirin Enteric Coated [Aspirin EC] 81 mg PO DAILY 02/09/17 [History] Fenofibrate Nanocrystallized [Tricor] 145 mg PO DAILY 02/09/17 [History] Insulin ASPART [NovoLOG] 0 unit SQ TIDWM 02/09/17 [History] Insulin Glargine,Hum.rec.anlog [[place] Solostar] 70 units SQ DAILY 02/09/17 [ History] Lipase/Protease/Amylase [Baldo Dr 12,000 Units Capsule] 1 each PO AD 02/09/17 [ History] Lisinopril 2.5 mg PO DAILY 02/09/17 [History] Omeprazole [PriLOSEC] 40 mg PO DAILY 02/09/17 [History] Sucralfate [Carafate] 1 gm PO QIDAC #120 tab 02/21/17 [Rx] Phenytoin ER [Dilantin ER] 100 mg PO TID #30 capsule 04/18/17 [Rx] Sertraline [Zoloft] 100 mg PO DAILY #30 tablet 04/18/17 [Rx] Tizanidine HCl 4 mg PO TID PRN #10 tablet 04/18/17 [Rx] Isosorbide MONOnitrate (24 HR) [Imdur] 30 mg PO DAILY 06/28/17 [History] clonazePAM [Clonazepam] 0.5 mg PO DAILY 06/28/17 [History] Rivaroxaban [Xarelto] 20 mg PO DAILY #30 tablet 07/11/17 [Rx] Gabapentin [Neurontin] 800 mg PO TID 08/11/17 [History] levoFLOXacin [Levaquin] 750 mg PO DAILY #7 tablet 08/22/17 [Rx] Allergies/Adverse Reactions: 3 Allergy/AdvReac Type Severity Reaction Status Date / Time No Known Allergies Allergy Verified 08/16/17 10:17 Date of admission: 08/16/17 16:25 Primary care physician: Suleman Fonseca MD Consults: 08/16/17 18:07 Consult to Electrode Cleaner [CONS] Routine Reason for SW Consult: Home health, meals on wheels 08/16/17 21:50 Consult to Wound Care [CONS] Routine Reason for Consult: Cellulitis Time Notified: 09:00 Call Completed: No 08/18/17 18:39 Consult to Psychiatry [CONS] Routine Consulting Provider: Psychiatry Liliya Reason for Consult: Pt depressed, states that he wishes he were , there is nothing good about the day or being alive. Denies SI or HI. Call Completed: No Discharging clinician: Zulema Hanna Anticipated date of discharge: 08/22/17 - Constitutional Vitals: Temp Pulse Resp BP Pulse Ox 98.2 F 87 16 109/67 97 08/22/17 11:50 08/22/17 11:50 08/22/17 11:50 08/22/17 11:50 08/22/17 11:50 General appearance: Present: A&O X 3, no acute distress, answers questions appropriately. Absent: cooperative, pleasant, severe distress - Head Head exam: Present: atraumatic, normocephalic - Eye Eye exam: Present: normal appearance, PERRL, conjuntiva pink, sclera anicteric Pupils: Present: PERRL - Neck Neck exam general surgery: Present: supple, trachea midline - Respiratory Respiratory exam: Present: CTAB. Absent: accessory muscle use, chest wall tenderness, rales, respiratory distress, rhonchi, wheezes - Cardiovascular Cardiovascular exam: Present: RRR, +S1, +S2. Absent: diastolic murmur, gallop, rubs, systolic murmur - GI/Abdominal GI/Abdominal exam: Present: normal bowel sounds, soft. Absent: distended - Extremities Exam Extremities exam: Present: warm, radial pulses palpable and symmetrical. Absent : calf tenderness, cyanotic, pedal edema - Neurological Exam Neurological exam: Present: alert, oriented X3, no focal deficits. Absent: altered, facial droop, speech deficit - Skin Skin exam: Present: dry, normal color, warm. Absent: intact - Patient Status Disposition: Home Health Service Condition: Good Overall status at discharge: patient is progressing back to baseline - Discharge Instructions Follow Up With: Suleman Fonseca MD [Primary Care Provider] - Additional Instructions: Follow-up with her primary care provider in the next 7-10 days for recheck. Home health care will be in charge of wound care. Continue home medications. Antibiotic prescription was called into [facility] pharmacy. Take your medications as directed. It is important that you finish your antibiotic. Return to the emergency department as needed for any other problems or concerns , or if your symptoms return or worsen. - Diet and Activity Activity: increase activity as tolerated Diet: advance to your usual diet
--- NOTE | 2017-08-22 17:22 | Physician Discharge Referral ---
Home Health/Hosp Referral Info Transfer to: Home Health Provider in Charge Post Discharge: PCP - Diagnosis (1) CAD (coronary artery disease) Priority: Secondary Status: Chronic (2) Cellulitis Priority: Primary Status: Acute (3) Chronic deep vein thrombosis (DVT) Priority: Secondary Status: Chronic (4) PVD (peripheral vascular disease) Priority: Secondary Status: Chronic (5) Depression Priority: Secondary Status: Chronic (6) DM2 (diabetes mellitus, type 2) Priority: Secondary Status: Chronic (7) DVT prophylaxis Priority: Secondary Status: Acute - Respiratory Orders Smoking Cessation: Smoking cessation has been advised. For more information, call the [place] Tobacco Quit Line at 4-520-ETSI-NOW. - Diet/Nutrition Diet/Nutrition Orders: Regular - Activity Activity Orders: Up ad óscar, Chair - Services Needed Following services are medically necessary services: Nursing, Home Health Aide, Physical Therapy, Occupational Therapy - Transfer Medications Prescriptions: levoFLOXacin [Levaquin] 750 mg PO DAILY #7 tablet Home Medications: Clopidogrel [Plavix] 75 mg PO DAILY 02/04/15 [History] Nitroglycerin [Nitrostat] 0.4 mg SL Q5M PRN 08/06/16 [History] Simvastatin [Zocor] 40 mg PO HS 08/06/16 [History] Aspirin Enteric Coated [Aspirin EC] 81 mg PO DAILY 02/09/17 [History] Fenofibrate Nanocrystallized [Tricor] 145 mg PO DAILY 02/09/17 [History] Insulin ASPART [NovoLOG] 0 unit SQ TIDWM 02/09/17 [History] Insulin Glargine,Hum.rec.anlog [[place] Solostar] 70 units SQ DAILY 02/09/17 [ History] Lipase/Protease/Amylase [Creon Dr 12,000 Units Capsule] 1 each PO AD 02/09/17 [ History] Lisinopril 2.5 mg PO DAILY 02/09/17 [History] Omeprazole [PriLOSEC] 40 mg PO DAILY 02/09/17 [History] Sucralfate [Carafate] 1 gm PO QIDAC #120 tab 02/21/17 [Rx] Phenytoin ER [Dilantin ER] 100 mg PO TID #30 capsule 04/18/17 [Rx] Sertraline [Zoloft] 100 mg PO DAILY #30 tablet 04/18/17 [Rx] Tizanidine HCl 4 mg PO TID PRN #10 tablet 04/18/17 [Rx] Isosorbide MONOnitrate (24 HR) [Imdur] 30 mg PO DAILY 06/28/17 [History] clonazePAM [Clonazepam] 0.5 mg PO DAILY 06/28/17 [History] Rivaroxaban [Xarelto] 20 mg PO DAILY #30 tablet 07/11/17 [Rx] Gabapentin [Neurontin] 800 mg PO TID 08/11/17 [History] levoFLOXacin [Levaquin] 750 mg PO DAILY #7 tablet 08/22/17 [Rx] Allergies/Adverse Reactions: 3 Allergy/AdvReac Type Severity Reaction Status Date / Time No Known Allergies Allergy Verified 08/16/17 10:17 Certification: Further, I certify that my clinical findings support that this patient is homebound (i.e. absences from home require considerable and taxing effort and are for medical reasons or islam services or infrequently or short duration when for other reasons) because: Homebound Reason: Patient requires assistance of a person or device to safely leave home, Leaving home requires considerable and taxing effort due to condition Attestation: My signature below is to certify that this patient is under my care and that I, or nurse practitioner, or a physician's banking assistant working with me, has a face-to -face encounter with this patient.
[2017-08-22] MEDS: Ibuprofen 400 MG TABLET PO PRN (23:49)
[2017-08-23] MEDS: *HR* HYDROcodone/Acet 5/325 mg TABLET PO PRN (04:45)
[2017-08-23] MEDS: 0.9 % Sodium Chloride 1,000 ML IVC SCH (05:42)
[2017-08-23] MEDS: Insulin LISPRO 300 UNITS/3 ML VIAL SQ SCH ×2 (08:12→12:36)
[2017-08-23] MEDS: Fenofibrate 54 MG TABLET PO SCH (08:12)
[2017-08-23] MEDS: *HR* Rivaroxaban 10 MG TABLET PO SCH (08:13)
[2017-08-23] MEDS: Gabapentin 400 MG CAPSULE PO SCH (08:13)
[2017-08-23] MEDS: Sucralfate 1 GM TABLET PO SCH ×2 (08:13→12:37)
[2017-08-23] MEDS: Isosorbide MONOnitrate (24 HR) 30 MG TAB.ER.24H PO SCH (08:13)
[2017-08-23] MEDS: clonazePAM 0.5 MG TABLET PO SCH (08:13)
[2017-08-23] MEDS: levoFLOXacin 750 MG TABLET PO SCH (08:13)
[2017-08-23 11:42] VITALS: BP 92/60
--- NOTE | 2017-08-23 15:32 | Consult Note ---
Date of Encounter: 08/23/17 Time of Encounter: 15:00 Assessment & Recommendation (1) Other recurrent depressive disorders Current visit: Yes Status: Resolved History of Present Illness Patient: known to practice within the last 3 years Requesting Physician: Zulema Hanna CNP Reason for consult: depression History of present illness: Mr. Slaughter is a 57 year old male I was asked to see the patient for follow-up. . The patient has unable to tell me his history and of his current treatment the patient is been under psychiatric treatment previously. While he was diagnosed with major depression unspecified F 32.8. He may have a recurrent depression. He is able to identify this identify some stressors. 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 He is taking Zoloft and clonazepam he is familiar with these medicines. He has no guns in the home. He has no suicidal ideation and no psychosis. The patient is cleared to be discharged and may follow up with primary care physician or specialists as needed. This was discussed with his treating clinicians CC: Zulema Hanna CNP Past Med Surg Social Fam HX - Past Medical History Medical history: CHF, coronary artery disease, CVA, DVT, diabetes, GERD, hyperlipidemia, hypertension, myocardial infarction, seizures, other - Past Surgical History Surgical History: angioplasty/stent, cholecystectomy, coronary bypass (CABG), IVC Filter, LE Bypass, LE stent(s), vascular surgery, other - Social History Smoking Status: Former smoker Smokeless Tobacco Status: No Alcohol use: none Drug use: none - Family History Father Adopted: No Living Status: Still Living Hx Family Cardiac Disorders: Yes (CABG) Hx Family Endocrine Disorder: Yes Medications & Allergies Clopidogrel [Plavix] 75 mg PO DAILY 02/04/15 [History] Nitroglycerin [Nitrostat] 0.4 mg SL Q5M PRN 08/06/16 [History] Simvastatin [Zocor] 40 mg PO HS 08/06/16 [History] Aspirin Enteric Coated [Aspirin EC] 81 mg PO DAILY 02/09/17 [History] Fenofibrate Nanocrystallized [Tricor] 145 mg PO DAILY 02/09/17 [History] Insulin ASPART [NovoLOG] 0 unit SQ TIDWM 02/09/17 [History] Insulin Glargine,Hum.rec.anlog [Phyllis Solostmartina] 70 units SQ DAILY 02/09/17 [ History] Lipase/Protease/Amylase [Baldo Lay 12,000 Units Capsule] 1 each PO AD 02/09/17 [ History] Lisinopril 2.5 mg PO DAILY 02/09/17 [History] Omeprazole [PriLOSEC] 40 mg PO DAILY 02/09/17 [History] Sucralfate [Carafate] 1 gm PO QIDAC #120 tab 02/21/17 [Rx] Phenytoin ER [Dilantin ER] 100 mg PO TID #30 capsule 04/18/17 [Rx] Sertraline [Zoloft] 100 mg PO DAILY #30 tablet 04/18/17 [Rx] Tizanidine HCl 4 mg PO TID PRN #10 tablet 04/18/17 [Rx] Isosorbide MONOnitrate (24 HR) [Imdur] 30 mg PO DAILY 06/28/17 [History] clonazePAM [Clonazepam] 0.5 mg PO DAILY 06/28/17 [History] Rivaroxaban [Xarelto] 20 mg PO DAILY #30 tablet 07/11/17 [Rx] Gabapentin [Neurontin] 800 mg PO TID 08/11/17 [History] levoFLOXacin [Levaquin] 750 mg PO DAILY #7 tablet 08/22/17 [Rx] 3 Allergy/AdvReac Type Severity Reaction Status Date / Time No Known Allergies Allergy Verified 08/16/17 10:17 Psychiatry Exam - Constitutional Vitals: Temp Pulse Resp BP Pulse Ox 98.3 F 87 18 92/60 97 08/23/17 11:41 08/23/17 11:41 08/23/17 11:41 08/23/17 11:41 08/23/17 11:41 General appearance: age & developmentally appropriate, well-groomed, well- nourished - Musculoskeletal Gait: normal Station: relaxed Strength & Tone: normal for patient - Psychiatric Patient Orientation: Yes Person, Yes Time, Yes Place Level of alertness: Alert Behavior: calm, cooperative Psychomotor activity: Normal Eye Contact: Maintains Eye Contact Mood Description: Euthymic/stable Affect description: congruent with mood, full range Speech Volume: Normal Speech pattern: normal rate, normal rhythm, normal tone, fluent, spontaneous Language & Vocabulary: consistent with education Thought Process: Linear, Goal Oriented Thought Content: No Suicidal ideation, No Homicidal ideation, No Overt delusions Perceptual Disturbances: No Auditory hallucinations, No Visual hallucinations Attention Span Ability: Capable of Focused Attention Memory Description: Grossly Intact Patient Reliability: Reliable Historian Fund of knowledge: Yes abstraction ability, Yes aware of current events Intelligence Estimate: Average Judgment: Good Insight: Full Results - Labs Labs: Laboratory Last Values WBC 13.5 K/mcL (4.3-11.1) H 08/22/17 05:11 RBC 3.59 M/mcL (4.19-5.50) L 08/22/17 05:11 Hgb 9.0 g/dL (12.9-16.9) L 08/22/17 05:11 Hct 29.7 % (37.5-50.1) L 08/22/17 05:11 MCV 82.7 fL (83.0-100.0) L 08/22/17 05:11 MCH 25.1 pg (28.0-33.3) L 08/22/17 05:11 MCHC 30.3 g/dL (31.6-35.5) L 08/22/17 05:11 RDW 16.0 % (11.5-14.5) H 08/22/17 05:11 Plt Count 648 K/mcL (140-400) H 08/22/17 05:11 MPV 9.3 fL (9.4-12.4) L 08/22/17 05:11 Immature Gran % 0.6 % (0-4) 08/22/17 05:11 Seg Neutrophils % 53.4 % 08/22/17 05:11 Lymphocytes % 33.2 % 08/22/17 05:11 Monocytes % 9.4 % 08/22/17 05:11 Eosinophils % 3.1 % 08/22/17 05:11 Basophils % 0.3 % 08/22/17 05:11 Neutrophils # 7.2 K/mcL (1.6-8.9) 08/22/17 05:11 Lymphocytes # 4.5 K/mcL (0.6-4.6) 08/22/17 05:11 Monocytes # 1.3 K/mcL (0.0-1.3) 08/22/17 05:11 Eosinophils # 0.4 K/mcL (0.0-0.6) 08/22/17 05:11 Basophils # 0.0 K/mcL (0.0-0.2) 08/22/17 05:11 Nucleated RBCs/100 WBC 0.1 /100 WBC (0) H 08/22/17 05:11 PT 12.8 Seconds (9.4-12.1) H 08/17/17 15:58 INR 1.2 08/17/17 15:58 APTT 37.7 Seconds (26.0-36.0) H 08/17/17 15:58 Sodium 138 mEq/L (136-145) 08/21/17 08:46 Potassium 4.2 mEq/L (3.5-5.1) 08/21/17 08:46 Chloride 103 mEq/L (98-107) 08/21/17 08:46 Carbon Dioxide 25 mEq/L (23-29) 08/21/17 08:46 BUN 16 mg/dL (6-20) 08/21/17 08:46 Creatinine 0.78 mg/dL (0.70-1.30) 08/21/17 08:46 Est GFR ( Amer) > 60 (> 60) 08/21/17 08:46 Est GFR (Non-Af Amer) > 60 (> 60) 08/21/17 08:46 BUN/Creatinine Ratio 21 (6-26) 08/21/17 08:46 Glucose 270 mg/dL (70-105) H 08/21/17 08:46 POC Glucose 295 (58-89) H 08/22/17 19:24 Est Mean Plasma Glucose 381 mg/dl 08/18/17 03:27 Hemoglobin A1c 14.9 % (-5.6) H 08/18/17 03:27 Calculated Osmolality 297 (280-300) 08/21/17 08:46 Lactic Acid 1.1 mmol/L (0.5-2.2) 08/20/17 01:46 Calcium 8.6 mg/dL (8.6-10.3) 08/21/17 08:46 Total Bilirubin 0.3 mg/dL (0.3-1.0) 08/16/17 12:32 AST 15 Units/L (13-39) 08/16/17 12:32 ALT 7 Units/L (7-52) 08/16/17 12:32 Alkaline Phosphatase 105 Units/L (34-104) H 08/16/17 12:32 Serum Total Protein 7.1 g/dL (6.4-8.9) 08/16/17 12:32 Albumin 3.3 g/dL (3.5-5.7) L 08/16/17 12:32 Globulin 3.8 g/dL (2.4-3.5) H 08/16/17 12:32 Albumin/Globulin Ratio 0.9 (1.1-2.2) L 08/16/17 12:32 Vancomycin Trough 11.8 mcg/mL (10-20) 08/17/17 22:09 Consult Discharge Plan - Plan Instructions: Levofloxacin (By mouth) Additional Instructions: Follow-up with her primary care provider in the next 7-10 days for recheck. Home health care will be in charge of wound care. Continue home medications. Antibiotic prescription was called into [facility] pharmacy. Take your medications as directed. It is important that you finish your antibiotic. Return to the emergency department as needed for any other problems or concerns , or if your symptoms return or worsen. Referrals: Suleman Fonseca MD [Primary Care Provider] - 09/21/17 11:15 am Prescriptions: levoFLOXacin [Levaquin] 750 mg PO DAILY #7 tablet
== END 2017-08-23 16:56 | disposition home health service (06) ==
LOC: 3BNU 10:15 → EMEROO 10:15 → 3BNU 16:54
PROVIDERS: ADMIT Student in an Organized Health Care Education/Training Program; ATTEND Registered Nurse

== ENCOUNTER 2018-05-02 10:26 | Inpatient (IN) ==
[2018-05-02] MEDS ORDERED: 0.9 % Sodium Chloride 1,000 ML IVC ONE ×4 (10:49→13:10)
[2018-05-02] MEDS ORDERED: Isovue-370 500 ML INFUS..BTL IV ONE (10:56)
--- NOTE | 2018-05-02 10:57 | Emergency Department Note ---
Disposition Clinical Impression: Pyelonephritis, Hepatic lesion, Elevated troponin DKA (diabetic ketoacidoses) Qualifiers: Diabetes mellitus type: type 2 Diabetes mellitus complication detail: without coma Qualified Code(s): E11.10 - Type 2 diabetes mellitus with ketoacidosis without coma Leukocytosis Qualifiers: Leukocytosis type: other Qualified Code(s): D72.828 - Other elevated white blood cell count Disposition: Admitted As Inpatient Condition: Good Abdominal Pain HPI - General Chief Complaint: ED Abdominal Pain Stated Complaint: Abdominal Pain Time Seen by Provider: 05/02/18 10:31 Source: patient Mode of arrival: ambulatory Limitations: no limitations Nursing Notes Reviewed: Yes Vital Signs Reviewed: Yes - History of Present Illness HPI Narrative: Patient with significant past mental history including diabetes that is insulin- dependent, double amputation of the lower extremities presenting for abdominal pain that he states is been going on for 2 weeks. Patient has been noncompliant with medications. Patient is tachycardic and mildly tachypnea. The patient is able to answer all questions but is curable and not able to give specific details of what hurts how long it has hurt or any aggravating or alleviating factors. He will be worked up for DKA as well as his complaint of chest pain which he has no further details about. Pain Scale: 8 - Related Data Home Medications Medication Instructions Recorded Confirmed RX: Clopidogrel [Plavix] 75 mg PO DAILY 02/04/15 05/02/18 RX: Simvastatin [Zocor] 40 mg PO HS 08/06/16 05/02/18 RX: Fenofibrate Nanocrystallized 145 mg PO DAILY 02/09/17 05/02/18 [Tricor] RX: Gabapentin [Neurontin] 800 mg PO TID 08/11/17 05/02/18 RX: Amitriptyline [Elavil] 25 mg PO HS 12/23/17 05/02/18 Lisinopril 2.5 mg PO DAILY 05/02/18 05/02/18 Nitroglycerin [Nitrostat] 0.4 mg SL Q5M PRN 05/02/18 05/02/18 RX: Insulin ASPART [Novolog 0 unit SQ TID 05/02/18 05/02/18 Flexpen] RX: Insulin Degludec [Tresiba 40 unit SQ BID 05/02/18 05/02/18 Flextouch U-200] Previous Rx's Medication Instructions Recorded RX: Phenytoin ER [Dilantin ER] 100 mg PO TID #30 capsule 04/18/17 RX: Sertraline [Zoloft] 100 mg PO DAILY #30 tablet 04/18/17 RX: Tizanidine HCl 4 mg PO TID PRN #10 tablet 04/18/17 RX: Rivaroxaban [Xarelto] 20 mg PO DAILY #30 tablet 07/11/17 RX: Ascorbic Acid [Vitamin C] 500 mg PO DAILY #30 tablet.er 01/08/18 RX: Omeprazole [PriLOSEC] 40 mg PO DAILY PRN #0 01/08/18 Allergies Allergy/AdvReac Type Severity Reaction Status Date / Time No Known Allergies Allergy Verified 08/16/17 10:17 All systems ED: reviewed and negative except as stated. Abdominal Pain PMH - Past Medical History Medical history: Reports: CHF, coronary artery disease, CVA, DVT, diabetes, GERD, hyperlipidemia, hypertension, myocardial infarction, peripheral artery disease, seizures, other Male Surgical History: Reports: coronary bypass (CABG), other Psychiatric history: Reports: anxiety, depression - Social History Smoking status: Current every day smoker Alcohol use: Reports: none Drug use: Reports: none Physical Exam General: Patient agitated and tachypnic Head: Normocephalic Atraumatic Eyes: PERRL, EOMI ENT: Airway patent, no stridor Neck: supple Chest: Lungs clear to auscultation bilateral Cardiac: Regular rhythm Abdomen: soft, generalized abdominal tenderness, nondistended; no guarding, rebound, or tenderness to percussion Musculoskeletal: Bilateral amputation Skin: No rash, normal skin tone Neuro: Alert and Oriented to person and place but gets agitated and does not w ant to answer questions in regards to time or other neurologic evaluation. No focal deficits. - General Limitations: physical limitation General appearance: alert Course - Reevaluation(s) Reevaluation #1: Patient with labs concerning for DKA. Fluid boluses have been given. The patient also has an elevated troponin. The case did get discussed with car diology. Patient is on Zaroxolyn took his morning dose. Heparin to be started approximately 12 hours later. Heparin order placed and time stamped. The patient's white blood cell count was significantly elevated. He has not been experiencing fevers or chills. CT scan concerning for pyelonephritis which does fit with corresponding UTI. Patient also has concern for liver lesion which could be abnormal parenchyma versus hepatic abscess. Blood cultures have been obtained and the patient will be given Zosyn. Insulin drip was started. Repeat VBG does show some small amount of improvement. Patient did have active chest pain for a short period of time while in the emergency department but self resolved. Closer did not need to be started. EKG does not show any specific ST elevations or depressions. Initially the case was discussed with ICU. Patient is mechanically stable so pending CAT scan request was made to discuss with hospitalist. CT scan results obtained. Concern for infection. Discussed with hospitalist. Hospitalist requests ICU admission. Case was discussed with ICU physician. Patient accepted for admission. Vital Signs Temperature 97.9 F 05/02/18 10:35 Pulse Rate 67 05/02/18 10:35 Respiratory Rate 26 05/02/18 10:35 Blood Pressure 112/73 05/02/18 10:35 O2 Sat by Pulse Oximetry 100 05/02/18 10:35 Temperature 97.5 F L 05/02/18 17:13 Pulse Rate 97 05/02/18 18:00 Respiratory Rate 16 05/02/18 18:00 Blood Pressure 118/65 05/02/18 18:00 O2 Sat by Pulse Oximetry 100 05/02/18 15:28 Oxygen Delivery Oxygen Delivery Room Air Abdominal Pain - Medical Records Medical records reviewed: Yes I reviewed the patient's medical records. - Lab Data Lab results reviewed: Yes I reviewed the patient's lab results. Result diagrams: 05/02/18 11:07 05/02/18 14:21 Lab Results 05/02/18 05/02/18 05/02/18 Range/Units 10:49 10:50 11:07 WBC 49.1 H* (4.3-11.1) K/mcL RBC 4.92 (4.19-5.50) M/mcL Hgb 12.1 L D (12.9-16.9) g/dL Hct 42.6 (37.5-50.1) % MCV 86.6 (83.0-100.0) fL MCH 24.6 L (28.0-33.3) pg MCHC 28.4 L (31.6-35.5) g/dL RDW 16.8 H (11.5-14.5) % Plt Count 442 H (140-400) K/mcL MPV 11.0 (9.4-12.4) fL Immature Gran % Test Not Performed Seg Neutrophils % 96.0 % Lymphocytes % 2.0 % Monocytes % 2.0 % Eosinophils % Test Not Performed Basophils % Test Not Performed Neutrophils # 47.1 H (1.6-8.9) K/mcL Lymphocytes # 1.0 (0.6-4.6) K/mcL Monocytes # 1.0 (0.0-1.3) K/mcL Eosinophils # Test Not Performed Basophils # Test Not Performed Platelet Estimate Normal (Normal) PT (9.4-12.1) Seconds INR Heparin Anti-Xa, Unfract (0.30-0.70) IU/mL VBG pH (7.32-7.42) pH Units VBG pCO2 (41-51) mmHg VBG pO2 (25-50) mmHg VBG HCO3 (21-27) mEq/L Sodium (136-145) mEq/L Potassium (3.5-5.1) mEq/L Chloride (98-107) mEq/L Carbon Dioxide (23-29) mEq/L BUN (6-20) mg/dL Creatinine (0.70-1.30) mg/dL Est GFR ( Amer) (> 60) Est GFR (Non-Af Amer) (> 60) BUN/Creatinine Ratio (6-26) Glucose (70-105) mg/dL POC Glucose > 600 H* > 600 H* (70-99) mg/dL Calculated Osmolality (280-300) Lactic Acid (0.5-2.2) mmol/L Calcium (8.6-10.3) mg/dL Magnesium (1.6-2.6) mg/dL Total Bilirubin (0.3-1.0) mg/dL Direct Bilirubin (0.0-0.2) mg/dL Indirect Bilirubin (0.0-1.2) mg/dL AST (13-39) Units/L ALT (7-52) Units/L Alkaline Phosphatase (34-104) Units/L Troponin I (< 0.04) ng/mL Serum Total Protein (6.4-8.9) g/dL Albumin (3.5-5.7) g/dL Globulin (2.4-3.5) g/dL Albumin/Globulin Ratio (1.1-2.2) Lipase (11-82) Units/L Beta-Hydroxybutyric Acd (0.02-0.27) mmol/L Urine Color (Yellow) Urine Clarity (Clear) Urine pH (5.0-8.0) pH Units Ur Specific [place] (1.010-1.025) Urine Protein (Neg-Trace) mg/dL Urine Glucose (UA) (Normal) mg/dL Urine Ketones (Negative) mg/dL Urine Blood (Negative) Urine Nitrite (Negative) Urine Bilirubin (Negative) Urine Urobilinogen (Normal) mg/dL Ur Leukocyte Esterase (Negative) Urine Microscopic RBC (0-3) per hpf Urine Microscopic WBC (0-3) per hpf Ur Squamous Epith Cells (None-Few) per lpf Urine Bacteria (None-Few) per hpf Hyaline Casts (None-Few) per lpf Ur Culture Indicated? (NO) Person Notif of Crit 05/02/18 05/02/18 05/02/18 Range/Units 11:07 11:07 11:07 WBC (4.3-11.1) K/mcL RBC (4.19-5.50) M/mcL Hgb (12.9-16.9) g/dL Hct (37.5-50.1) % MCV (83.0-100.0) fL MCH (28.0-33.3) pg MCHC (31.6-35.5) g/dL RDW (11.5-14.5) % Plt Count (140-400) K/mcL MPV (9.4-12.4) fL Immature Gran % Seg Neutrophils % % Lymphocytes % % Monocytes % % Eosinophils % Basophils % Neutrophils # (1.6-8.9) K/mcL Lymphocytes # (0.6-4.6) K/mcL Monocytes # (0.0-1.3) K/mcL Eosinophils # Basophils # Platelet Estimate (Normal) PT 11.6 (9.4-12.1) Seconds INR 1.0 Heparin Anti-Xa, Unfract (0.30-0.70) IU/mL VBG pH (7.32-7.42) pH Units VBG pCO2 (41-51) mmHg VBG pO2 (25-50) mmHg VBG HCO3 (21-27) mEq/L Sodium 133 L (136-145) mEq/L Potassium 5.4 H (3.5-5.1) mEq/L Chloride 94 L (98-107) mEq/L Carbon Dioxide 6 L* (23-29) mEq/L BUN 52 H (6-20) mg/dL Creatinine 1.59 H (0.70-1.30) mg/dL Est GFR ( Amer) 55 L (> 60) Est GFR (Non-Af Amer) 45 L (> 60) BUN/Creatinine Ratio 33 H (6-26) Glucose 778 H* (70-105) mg/dL POC Glucose (70-99) mg/dL Calculated Osmolality 328 H (280-300) Lactic Acid 1.3 (0.5-2.2) mmol/L Calcium 8.8 (8.6-10.3) mg/dL Magnesium 2.5 (1.6-2.6) mg/dL Total Bilirubin 0.4 (0.3-1.0) mg/dL Direct Bilirubin 0.1 (0.0-0.2) mg/dL Indirect Bilirubin 0.3 (0.0-1.2) mg/dL AST 11 L (13-39) Units/L ALT 11 (7-52) Units/L Alkaline Phosphatase 120 H (34-104) Units/L Troponin I 0.27 H* (< 0.04) ng/mL Serum Total Protein 7.5 (6.4-8.9) g/dL Albumin 3.4 L (3.5-5.7) g/dL Globulin 4.1 H (2.4-3.5) g/dL Albumin/Globulin Ratio 0.8 L (1.1-2.2) Lipase 404 H (11-82) Units/L Beta-Hydroxybutyric Acd (0.02-0.27) mmol/L Urine Color (Yellow) Urine Clarity (Clear) Urine pH (5.0-8.0) pH Units Ur Specific [place] (1.010-1.025) Urine Protein (Neg-Trace) mg/dL Urine Glucose (UA) (Normal) mg/dL Urine Ketones (Negative) mg/dL Urine Blood (Negative) Urine Nitrite (Negative) Urine Bilirubin (Negative) Urine Urobilinogen (Normal) mg/dL Ur Leukocyte Esterase (Negative) Urine Microscopic RBC (0-3) per hpf Urine Microscopic WBC (0-3) per hpf Ur Squamous Epith Cells (None-Few) per lpf Urine Bacteria (None-Few) per hpf Hyaline Casts (None-Few) per lpf Ur Culture Indicated? (NO) Person Notif of Crit 05/02/18 05/02/18 05/02/18 Range/Units 11:07 11:27 11:29 WBC (4.3-11.1) K/mcL RBC (4.19-5.50) M/mcL Hgb (12.9-16.9) g/dL Hct (37.5-50.1) % MCV (83.0-100.0) fL MCH (28.0-33.3) pg MCHC (31.6-35.5) g/dL RDW (11.5-14.5) % Plt Count (140-400) K/mcL MPV (9.4-12.4) fL Immature Gran % Seg Neutrophils % % Lymphocytes % % Monocytes % % Eosinophils % Basophils % Neutrophils # (1.6-8.9) K/mcL Lymphocytes # (0.6-4.6) K/mcL Monocytes # (0.0-1.3) K/mcL Eosinophils # Basophils # Platelet Estimate (Normal) PT (9.4-12.1) Seconds INR Heparin Anti-Xa, Unfract (0.30-0.70) IU/mL VBG pH 7.04 L* (7.32-7.42) pH Units VBG pCO2 21 L (41-51) mmHg VBG pO2 102 H (25-50) mmHg VBG HCO3 6 L (21-27) mEq/L Sodium (136-145) mEq/L Potassium (3.5-5.1) mEq/L Chloride (98-107) mEq/L Carbon Dioxide (23-29) mEq/L BUN (6-20) mg/dL Creatinine (0.70-1.30) mg/dL Est GFR ( Amer) (> 60) Est GFR (Non-Af Amer) (> 60) BUN/Creatinine Ratio (6-26) Glucose (70-105) mg/dL POC Glucose (70-99) mg/dL Calculated Osmolality (280-300) Lactic Acid (0.5-2.2) mmol/L Calcium (8.6-10.3) mg/dL Magnesium (1.6-2.6) mg/dL Total Bilirubin (0.3-1.0) mg/dL Direct Bilirubin (0.0-0.2) mg/dL Indirect Bilirubin (0.0-1.2) mg/dL AST (13-39) Units/L ALT (7-52) Units/L Alkaline Phosphatase (34-104) Units/L Troponin I (< 0.04) ng/mL Serum Total Protein (6.4-8.9) g/dL Albumin (3.5-5.7) g/dL Globulin (2.4-3.5) g/dL Albumin/Globulin Ratio (1.1-2.2) Lipase (11-82) Units/L Beta-Hydroxybutyric Acd > 2.00 H (0.02-0.27) mmol/L Urine Color Yellow (Yellow) Urine Clarity Clear (Clear) Urine pH 5.5 (5.0-8.0) pH Units Ur Specific [place] 1.029 H (1.010-1.025) Urine Protein 30 H (Neg-Trace) mg/dL Urine Glucose (UA) >=1000 H (Normal) mg/dL Urine Ketones >=160 H (Negative) mg/dL Urine Blood Small H (Negative) Urine Nitrite Negative (Negative) Urine Bilirubin Negative (Negative) Urine Urobilinogen Normal (Normal) mg/dL Ur Leukocyte Esterase Small H (Negative) Urine Microscopic RBC 0-3 (0-3) per hpf Urine Microscopic WBC 50-100 H (0-3) per hpf Ur Squamous Epith Cells Few (None-Few) per lpf Urine Bacteria None Seen (None-Few) per hpf Hyaline Casts Few (None-Few) per lpf Ur Culture Indicated? YES A (NO) Person Notif of Crit PREET TANISHA 05/02/18 05/02/18 05/02/18 Range/Units 12:33 13:16 13:17 WBC (4.3-11.1) K/mcL RBC (4.19-5.50) M/mcL Hgb (12.9-16.9) g/dL Hct (37.5-50.1) % MCV (83.0-100.0) fL MCH (28.0-33.3) pg MCHC (31.6-35.5) g/dL RDW (11.5-14.5) % Plt Count (140-400) K/mcL MPV (9.4-12.4) fL Immature Gran % Seg Neutrophils % % Lymphocytes % % Monocytes % % Eosinophils % Basophils % Neutrophils # (1.6-8.9) K/mcL Lymphocytes # (0.6-4.6) K/mcL Monocytes # (0.0-1.3) K/mcL Eosinophils # Basophils # Platelet Estimate (Normal) PT (9.4-12.1) Seconds INR Heparin Anti-Xa, Unfract 0.00 L (0.30-0.70) IU/mL VBG pH 7.10 L* (7.32-7.42) pH Units VBG pCO2 27 L (41-51) mmHg VBG pO2 53 H (25-50) mmHg VBG HCO3 9 L (21-27) mEq/L Sodium 137 (136-145) mEq/L Potassium 5.4 H (3.5-5.1) mEq/L Chloride 100 (98-107) mEq/L Carbon Dioxide 8 L* (23-29) mEq/L BUN 48 H (6-20) mg/dL Creatinine 1.39 H (0.70-1.30) mg/dL Est GFR ( Amer) > 60 (> 60) Est GFR (Non-Af Amer) 53 L (> 60) BUN/Creatinine Ratio 35 H (6-26) Glucose 705 H* (70-105) mg/dL POC Glucose (70-99) mg/dL Calculated Osmolality 330 H (280-300) Lactic Acid (0.5-2.2) mmol/L Calcium 8.1 L (8.6-10.3) mg/dL Magnesium (1.6-2.6) mg/dL Total Bilirubin (0.3-1.0) mg/dL Direct Bilirubin (0.0-0.2) mg/dL Indirect Bilirubin (0.0-1.2) mg/dL AST (13-39) Units/L ALT (7-52) Units/L Alkaline Phosphatase (34-104) Units/L Troponin I (< 0.04) ng/mL Serum Total Protein (6.4-8.9) g/dL Albumin (3.5-5.7) g/dL Globulin (2.4-3.5) g/dL Albumin/Globulin Ratio (1.1-2.2) Lipase (11-82) Units/L Beta-Hydroxybutyric Acd (0.02-0.27) mmol/L Urine Color (Yellow) Urine Clarity (Clear) Urine pH (5.0-8.0) pH Units Ur Specific [place] (1.010-1.025) Urine Protein (Neg-Trace) mg/dL Urine Glucose (UA) (Normal) mg/dL Urine Ketones (Negative) mg/dL Urine Blood (Negative) Urine Nitrite (Negative) Urine Bilirubin (Negative) Urine Urobilinogen (Normal) mg/dL Ur Leukocyte Esterase (Negative) Urine Microscopic RBC (0-3) per hpf Urine Microscopic WBC (0-3) per hpf Ur Squamous Epith Cells (None-Few) per lpf Urine Bacteria (None-Few) per hpf Hyaline Casts (None-Few) per lpf Ur Culture Indicated? (NO) Person Notif of Crit Preet Tanisha 05/02/18 05/02/18 05/02/18 Range/Units 14:21 14:28 14:29 WBC (4.3-11.1) K/mcL RBC (4.19-5.50) M/mcL Hgb (12.9-16.9) g/dL Hct (37.5-50.1) % MCV (83.0-100.0) fL MCH (28.0-33.3) pg MCHC (31.6-35.5) g/dL RDW (11.5-14.5) % Plt Count (140-400) K/mcL MPV (9.4-12.4) fL Immature Gran % Seg Neutrophils % % Lymphocytes % % Monocytes % % Eosinophils % Basophils % Neutrophils # (1.6-8.9) K/mcL Lymphocytes # (0.6-4.6) K/mcL Monocytes # (0.0-1.3) K/mcL Eosinophils # Basophils # Platelet Estimate (Normal) PT (9.4-12.1) Seconds INR Heparin Anti-Xa, Unfract (0.30-0.70) IU/mL VBG pH (7.32-7.42) pH Units VBG pCO2 (41-51) mmHg VBG pO2 (25-50) mmHg VBG HCO3 (21-27) mEq/L Sodium (136-145) mEq/L Potassium (3.5-5.1) mEq/L Chloride (98-107) mEq/L Carbon Dioxide (23-29) mEq/L BUN (6-20) mg/dL Creatinine (0.70-1.30) mg/dL Est GFR ( Amer) (> 60) Est GFR (Non-Af Amer) (> 60) BUN/Creatinine Ratio (6-26) Glucose 629 H* (70-105) mg/dL POC Glucose 557 H* 590 H* (70-99) mg/dL Calculated Osmolality (280-300) Lactic Acid (0.5-2.2) mmol/L Calcium (8.6-10.3) mg/dL Magnesium (1.6-2.6) mg/dL Total Bilirubin (0.3-1.0) mg/dL Direct Bilirubin (0.0-0.2) mg/dL Indirect Bilirubin (0.0-1.2) mg/dL AST (13-39) Units/L ALT (7-52) Units/L Alkaline Phosphatase (34-104) Units/L Troponin I (< 0.04) ng/mL Serum Total Protein (6.4-8.9) g/dL Albumin (3.5-5.7) g/dL Globulin (2.4-3.5) g/dL Albumin/Globulin Ratio (1.1-2.2) Lipase (11-82) Units/L Beta-Hydroxybutyric Acd (0.02-0.27) mmol/L Urine Color (Yellow) Urine Clarity (Clear) Urine pH (5.0-8.0) pH Units Ur Specific [place] (1.010-1.025) Urine Protein (Neg-Trace) mg/dL Urine Glucose (UA) (Normal) mg/dL Urine Ketones (Negative) mg/dL Urine Blood (Negative) Urine Nitrite (Negative) Urine Bilirubin (Negative) Urine Urobilinogen (Normal) mg/dL Ur Leukocyte Esterase (Negative) Urine Microscopic RBC (0-3) per hpf Urine Microscopic WBC (0-3) per hpf Ur Squamous Epith Cells (None-Few) per lpf Urine Bacteria (None-Few) per hpf Hyaline Casts (None-Few) per lpf Ur Culture Indicated? (NO) Person Notif of Crit 05/02/18 05/02/18 Range/Units 15:12 15:13 WBC (4.3-11.1) K/mcL RBC (4.19-5.50) M/mcL Hgb (12.9-16.9) g/dL Hct (37.5-50.1) % MCV (83.0-100.0) fL MCH (28.0-33.3) pg MCHC (31.6-35.5) g/dL RDW (11.5-14.5) % Plt Count (140-400) K/mcL MPV (9.4-12.4) fL Immature Gran % Seg Neutrophils % % Lymphocytes % % Monocytes % % Eosinophils % Basophils % Neutrophils # (1.6-8.9) K/mcL Lymphocytes # (0.6-4.6) K/mcL Monocytes # (0.0-1.3) K/mcL Eosinophils # Basophils # Platelet Estimate (Normal) PT (9.4-12.1) Seconds INR Heparin Anti-Xa, Unfract (0.30-0.70) IU/mL VBG pH (7.32-7.42) pH Units VBG pCO2 (41-51) mmHg VBG pO2 (25-50) mmHg VBG HCO3 (21-27) mEq/L Sodium (136-145) mEq/L Potassium (3.5-5.1) mEq/L Chloride (98-107) mEq/L Carbon Dioxide (23-29) mEq/L BUN (6-20) mg/dL Creatinine (0.70-1.30) mg/dL Est GFR ( Amer) (> 60) Est GFR (Non-Af Amer) (> 60) BUN/Creatinine Ratio (6-26) Glucose (70-105) mg/dL POC Glucose 549 H* 486 H* (70-99) mg/dL Calculated Osmolality (280-300) Lactic Acid (0.5-2.2) mmol/L Calcium (8.6-10.3) mg/dL Magnesium (1.6-2.6) mg/dL Total Bilirubin (0.3-1.0) mg/dL Direct Bilirubin (0.0-0.2) mg/dL Indirect Bilirubin (0.0-1.2) mg/dL AST (13-39) Units/L ALT (7-52) Units/L Alkaline Phosphatase (34-104) Units/L Troponin I (< 0.04) ng/mL Serum Total Protein (6.4-8.9) g/dL Albumin (3.5-5.7) g/dL Globulin (2.4-3.5) g/dL Albumin/Globulin Ratio (1.1-2.2) Lipase (11-82) Units/L Beta-Hydroxybutyric Acd (0.02-0.27) mmol/L Urine Color (Yellow) Urine Clarity (Clear) Urine pH (5.0-8.0) pH Units Ur Specific [place] (1.010-1.025) Urine Protein (Neg-Trace) mg/dL Urine Glucose (UA) (Normal) mg/dL Urine Ketones (Negative) mg/dL Urine Blood (Negative) Urine Nitrite (Negative) Urine Bilirubin (Negative) Urine Urobilinogen (Normal) mg/dL Ur Leukocyte Esterase (Negative) Urine Microscopic RBC (0-3) per hpf Urine Microscopic WBC (0-3) per hpf Ur Squamous Epith Cells (None-Few) per lpf Urine Bacteria (None-Few) per hpf Hyaline Casts (None-Few) per lpf Ur Culture Indicated? (NO) Person Notif of Crit - Radiology Data Radiology results reviewed: Yes I reviewed the patient's radiology results. - EKG Data EKG attestation: Yes I reviewed and interpreted this EKG. EKG results narrative: Sinus rhythm with heart rate of 99. MD 141. QRS 105. QTC 471. Patient has no significant ST elevations or depressions.
[2018-05-02 11:29] LABS: Hematocrit 42.6 % (37.5-50.1); Hemoglobin 12.1 g/dL (12.9-16.9); Mean Corpuscular HGB Conc 28.4 g/dL (31.6-35.5); Mean Corpuscular Hemoglobin 24.6 pg (28.0-33.3); Mean Corpuscular Volume 86.6 fL (83.0-100.0); Platelet Count 442 K/mcL (140-400); Red Blood Count 4.92 M/mcL (4.19-5.50); Red Cell Distribution Width 16.8 % (11.5-14.5)
[2018-05-02 11:34] LABS: VBG HCO3 6 mEq/L (21-27); VBG PCO2 21 mmHg (41-51); VBG PH 7.04 pH Units (7.32-7.42); VBG PO2 102 mmHg (25-50)
[2018-05-02 11:42] LABS: Prothrombin Time 11.6 Seconds (9.4-12.1)
[2018-05-02 11:45] LABS: Bilirubin,Urine Negative (Negative); Blood,Urine Small (Negative); Clarity,Urine Clear (Clear); Color,Urine Yellow (Yellow); Glucose,Urine (UA) >=1000 mg/dL (Normal); Ketones,Urine >=160 mg/dL (Negative); Leukocyte Esterase,Urine Small (Negative); Nitrite,Urine Negative (Negative); PH,Urine 5.5 pH Units (5.0-8.0); Protein,Urine 30 mg/dL (Neg-Trace); Specific Gravity,Urine 1.029 (1.010-1.025); Urobilinogen,Urine Normal (Normal)
[2018-05-02 11:48] LABS: Bacteria,Urine None Seen per hpf (None-Few); Squamous Epithelial Cell,Urine Few per lpf (None-Few); WBC,Urine 50-100 per hpf (0-3)
[2018-05-02 11:54] LABS: Albumin 3.4 g/dL (3.5-5.7); Albumin/Globulin Ratio 0.8 (1.1-2.2); Bilirubin,Direct 0.1 mg/dL (0.0-0.2); Bilirubin,Indirect 0.3 mg/dL (0.0-1.2); Bilirubin,Total 0.4 mg/dL (0.3-1.0); Calcium 8.8 mg/dL (8.6-10.3); Globulin 4.1 g/dL (2.4-3.5); Magnesium 2.5 mg/dL (1.6-2.6); Potassium 5.4 mEq/L (3.5-5.1); Total Protein 7.5 g/dL (6.4-8.9); Troponin I 0.27 ng/mL (< 0.04)
[2018-05-02 11:59] LABS: Hyaline Casts,Urine Few per lpf (None-Few); RBC,Urine 0-3 per hpf (0-3)
[2018-05-02 12:01] LABS: Neutrophils # 47.1 K/mcL (1.6-8.9); Platelet Estimate Normal (Normal)
[2018-05-02] MEDS ORDERED: *HR* Dextrose 50 % in Water (Syg) 50 ML SYRINGE IVP PRN ×2 (12:08→16:39)
[2018-05-02] MEDS ORDERED: Insulin Regular, Human 100 UNIT/ML IV ONE (12:08)
[2018-05-02] MEDS ORDERED: Insulin Human Regular 100 UNIT in 0.9 % Sodium Chloride 100 ML IVC SCH ×2 (12:15→16:45)
[2018-05-02] MEDS ORDERED: Aspirin 81 MG TAB.CHEW PO STA (13:09)
[2018-05-02 13:25] LABS: VBG HCO3 9 mEq/L (21-27); VBG PCO2 27 mmHg (41-51); VBG PO2 53 mmHg (25-50)
[2018-05-02 13:41] LABS: BUN/Creatinine Ratio 35 (6-26); Blood Urea Nitrogen 48 mg/dL (6-20); Calcium 8.1 mg/dL (8.6-10.3); Carbon Dioxide 8 mEq/L (23-29); Chloride 100 mEq/L (98-107); Glucose 705 mg/dL (70-105); Osmolality,Calculated 330 (280-300); Potassium 5.4 mEq/L (3.5-5.1); Sodium 137 mEq/L (136-145); eGFR For Non-African Americans 53 (> 60)
[2018-05-02] MEDS ORDERED: Piperacillin/Tazobactam 3.375 GM in 0.9 % Sodium Chloride Mini Bag 100 ML IVPB ONE (14:30)
--- NOTE | 2018-05-02 16:04 | Pulmonology History & Physical ---
<Van Gomes - Last Filed: 05/02/18 18:24> Date of Encounter: 05/02/18 Time of Encounter: 17:02 Assessment and Plan (1) DKA (diabetic ketoacidoses) Current visit: Yes Status: Acute Patient presents with 2 weeks of abdominal pain. Hx of non-compliance. Poor historian. Home medication Insulin Degludec 40 U BID Glucose 600's, Beta-hydroxybutyric Acd > 2.00, Anion Gap 29, pH 7.10 Received 1.5L of NS bolus in ED Insulin drip initiated K 5.4 Most likely due to non-compliance vs infection secondary to pyelonephritis vs liver abscess Plan: - Follow DKA protocol - Bolus with 4L NS - Continue Insulin drip 0.1u/kg/hr until AG closed - 0.45% NaCl 500ml/hr - Switch to D5 1/2NS once glucose reached 200 - glucose q1h Qualifiers: Diabetes mellitus type: type 2 Diabetes mellitus complication detail: without coma Qualified Code(s): E11.10 - Type 2 diabetes mellitus with ketoacidosis without coma (2) Pancreatitis, acute Current visit: No Status: Acute Hx of pancreatitis. Denies hx of alcohol use. In past, cholycystectomy and CBD stone removed. Lipase: [address] abd/pelv No transaminitis or elevated bilirubin Suspect due to dehydration secondary to DKA Plan: - NPO - with occasional ice chips - Trend Lipase in AM Qualifiers: Pancreatitis type: other Acute pancreatitis complication: no infection or necrosis Qualified Code(s): K85.80 - Other acute pancreatitis without necrosis or infection (3) Pyelonephritis Current visit: Yes Status: Acute C/o dysuria and flank pain CT abd/pelv: decreased perfusion in the cortex of the left kidney - pyelo vs infiltrating lesion vs renal infarction considered UA: WBCs and LE+ Leukocytosis of 49.1 Plan: - Patient started on Zosyn in the ED, will continue - Hx of MRSA, will add vanc empirically - Urine culture sent (4) Sepsis Current visit: Yes Status: Acute Tachycardia and leukocytosis of 49.1 Suspected source is perihepatic abscess vs pyelonephritis Urine and blood cultures sent on 05/02/18 Vanc and Zosyn started on 05/02/18 HD stable, suspect tachycardia is secondary to dehydration from DKA Qualifiers: Sepsis type: sepsis due to unspecified organism Qualified Code(s): A41.9 - Sepsis, unspecified organism (5) Elevated troponin Current visit: Yes Status: Acute Hx HTN, CABG, CAD s/p stens RCA 2014, RCA 2005, PVD with iliac stents and RLE thrombectomy R fem pop bypass in 2011. Patient c/o chest pain over past couple of months, asymptomatic at this time. Again, poor historian, only provides vague answers Troponin in ED 0.27, EKG showed NSR 99 with no STEMI Started on low dose heparin ACS protocol Suspect most likely supply/demand ischemia, given PMHx will continue ACS protocol Plan: - Trend troponins - Continue ACS low dose heparin - Spoke with cardiology, agree with current plan. Notify if patient has CP or tropnin continues to increase (6) Hepatic lesion Current visit: Yes Status: Acute Abd/Pel CT: Right perihepatic abscess versus lesion Started on Zosyn in the ED No elevation of liver enzymes or bilirubine, slight bump in alk phos Plan: - Consult ID, recommend addition of vanco given past cultures with MRSA - Discuss potential MRI tomorrow for further evaluation of lesion/abscess (7) ANGELICA (acute kidney injury) Current visit: No Status: Acute Cr 1.39, baseline is WNL. Suspect secondary to dehydration in setting of DKA Plan: - Fluid rehydration - Monitor UOP and labs daily - Urology consulted for catheter placement, concern for acute urinary retention (8) DVT prophylaxis Current visit: Yes Status: Acute ACS low dose heparin at this time History of Present Illness Chief complaint: abdominal pain HPI: Mr. Slaughter is a 58 year old male with PMHx of CAD with stents, CABG, CHF, PVD, DVT, HTN, stroke, seizures, pancreatitis, cholecystectomy, DMII insulin dependent, and splenectomy admitted from the ED for DKA, sepsis, and elevated troponin. Patient is a very vague historian and becomes frustrated when I ask for details about his history. States he has been having abdominal pain for 2 weeks with nausea and vomiting. He also admits to dysuria and bilateral flank pain. Chest pain that occurs intermittently over the past 3 months, unable to provide characteristics of pain and states currently asymptomatic. Denies a lcohol use. Past Med Surg Social Fam HX - Past Medical History Medical history: CHF, coronary artery disease, CVA, DVT, diabetes, GERD, hyperlipidemia, hypertension, myocardial infarction, peripheral artery disease, seizures, other Additional medical history: PVD, Phlebitis, B/L extremity claudication, Rotator cuff tear, testicular pain, Psychiatric history: anxiety, depression - Past Surgical History Surgical History: angioplasty/stent, cholecystectomy, coronary bypass (CABG), IVC Filter, LE Bypass, LE stent(s), vascular surgery, other Additional surgical history: left KKA, LHC stent, Colonoscopy, Right AKA - Social History Smoking Status: Current every day smoker Smokeless Tobacco Status: No Alcohol use: none Drug use: none - Family History Father Adopted: No Living Status: Still Living Hx Family Cardiac Disorders: Yes (CABG) Hx Family Endocrine Disorder: Yes Medications and Allergies RX: Clopidogrel [Plavix] 75 mg PO DAILY 02/04/15 [History] RX: Simvastatin [Zocor] 40 mg PO HS 08/06/16 [History] RX: Fenofibrate Nanocrystallized [Tricor] 145 mg PO DAILY 02/09/17 [History] RX: Phenytoin ER [Dilantin ER] 100 mg PO TID #30 capsule 04/18/17 [Rx] RX: Sertraline [Zoloft] 100 mg PO DAILY #30 tablet 04/18/17 [Rx] RX: Tizanidine HCl 4 mg PO TID PRN #10 tablet 04/18/17 [Rx] RX: Rivaroxaban [Xarelto] 20 mg PO DAILY #30 tablet 07/11/17 [Rx] RX: Gabapentin [Neurontin] 800 mg PO TID 08/11/17 [History] RX: Amitriptyline [Elavil] 25 mg PO HS 12/23/17 [History] RX: Ascorbic Acid [Vitamin C] 500 mg PO DAILY #30 tablet.er 01/08/18 [Rx] RX: Omeprazole [PriLOSEC] 40 mg PO DAILY PRN #0 01/08/18 [Rx] Lisinopril 2.5 mg PO DAILY 05/02/18 [History] Nitroglycerin [Nitrostat] 0.4 mg SL Q5M PRN 05/02/18 [History] RX: Insulin ASPART [Novolog Flexpen] 0 unit SQ TID 05/02/18 [History] RX: Insulin Degludec [Tresiba Flextouch U-200] 40 unit SQ BID 05/02/18 [History] Allergy/AdvReac Type Severity Reaction Status Date / Time No Known Allergies Allergy Verified 08/16/17 10:17 All Systems: The remainder of the systems were reviewed and are negative - Constitutional Constitutional: as per HPI - EENT Eyes: as per HPI - Cardiovascular Cardiovascular: as per HPI, chest pain - Respiratory Respiratory: as per HPI - Gastrointestinal Gastrointestinal: abdominal pain, nausea - Genitourinary Genitourinary: dysuria, flank pain - Integumentary Integumentary: as per HPI - Neurological Neurological: as per HPI - Endocrine Endocrine: as per HPI Physical Examination Vital Signs: Vital Signs, Last 4 Hours Pulse Resp BP Pulse Ox 05/02/18 15:28 102 20 132/86 100 05/02/18 13:06 104 22 109/77 100 General appearance: appears uncomfortable Eyes: nonicteric ENT: oropharynx dry Neck: supple Effort: normal Inspection: normal Auscultation: bilateral: clear Cardiovascular: regular rate and rhythm Gastrointestinal: normoactive bowel sounds, tender Integumentary: other (small area of 5x5mm epithelialization of what appears to be a chronic wound to the distal end of the LLE. No active drainage, induration or surrounding erythema. ) Extremities: other (bilateral lower extremity amputations) Musculoskeletal: no deformities normal mental status, non-focal exam affect normal, other (agitated) Results - Laboratory Findings CBC and BMP: 05/02/18 11:07 05/02/18 14:21 PT/INR, D-dimer PT 11.6 Seconds (9.4-12.1) 05/02/18 11:07 Abnormal lab findings: Abnormal lab results WBC 49.1 K/mcL (4.3-11.1) H* 05/02/18 11:07 Hgb 12.1 g/dL (12.9-16.9) L D 05/02/18 11:07 MCH 24.6 pg (28.0-33.3) L 05/02/18 11:07 MCHC 28.4 g/dL (31.6-35.5) L 05/02/18 11:07 RDW 16.8 % (11.5-14.5) H 05/02/18 11:07 Plt Count 442 K/mcL (140-400) H 05/02/18 11:07 Neutrophils # 47.1 K/mcL (1.6-8.9) H 05/02/18 11:07 Heparin Anti-Xa, Unfract 0.00 IU/mL (0.30-0.70) L 05/02/18 13:17 VBG pH 7.10 pH Units (7.32-7.42) L* 05/02/18 13:16 VBG pCO2 27 mmHg (41-51) L 05/02/18 13:16 VBG pO2 53 mmHg (25-50) H 05/02/18 13:16 VBG HCO3 9 mEq/L (21-27) L 05/02/18 13:16 Potassium 5.4 mEq/L (3.5-5.1) H 05/02/18 12:33 Carbon Dioxide 8 mEq/L (23-29) L* 05/02/18 12:33 BUN 48 mg/dL (6-20) H 05/02/18 12:33 Creatinine 1.39 mg/dL (0.70-1.30) H 05/02/18 12:33 Est GFR (Non-Af Amer) 53 (> 60) L 05/02/18 12:33 BUN/Creatinine Ratio 35 (6-26) H 05/02/18 12:33 Glucose 629 mg/dL (70-105) H* 05/02/18 14:21 POC Glucose 486 mg/dL (70-99) H* 05/02/18 15:13 Calculated Osmolality 330 (280-300) H 05/02/18 12:33 Calcium 8.1 mg/dL (8.6-10.3) L 05/02/18 12:33 AST 11 Units/L (13-39) L 05/02/18 11:07 Alkaline Phosphatase 120 Units/L (34-104) H 05/02/18 11:07 Troponin I 0.27 ng/mL (< 0.04) H* 05/02/18 11:07 Albumin 3.4 g/dL (3.5-5.7) L 05/02/18 11:07 Globulin 4.1 g/dL (2.4-3.5) H 05/02/18 11:07 Albumin/Globulin Ratio 0.8 (1.1-2.2) L 05/02/18 11:07 Lipase 404 Units/L (11-82) H 05/02/18 11:07 Beta-Hydroxybutyric Acd > 2.00 mmol/L (0.02-0.27) H 05/02/18 11:07 Ur Specific [place] 1.029 (1.010-1.025) H 05/02/18 11:29 Urine Protein 30 mg/dL (Neg-Trace) H 05/02/18 11:29 Urine Glucose (UA) >=1000 mg/dL (Normal) H 05/02/18 11:29 Urine Ketones >=160 mg/dL (Negative) H 05/02/18 11:29 Urine Blood Small (Negative) H 05/02/18 11:29 Ur Leukocyte Esterase Small (Negative) H 05/02/18 11:29 Urine Microscopic WBC 50-100 per hpf (0-3) H 05/02/18 11:29 Ur Culture Indicated? YES (NO) A 05/02/18 11:29 - Diagnostic Findings Chest x-ray: report reviewed, image reviewed Additional studies: CT scan of the abdomen and pelvis reviewed <Marino Olivas - Last Filed: 05/03/18 16:15> Date of Encounter: 05/03/18 History of Present Illness HPI: Mr. Slaughter is a 58 year old male All Systems: The remainder of the systems were reviewed and are negative Physical Examination Vital Signs: Vital Signs, Last 4 Hours Pulse Resp BP Pulse Ox 05/02/18 16:12 22 132/74 05/02/18 15:28 102 20 132/86 100 05/02/18 13:06 104 22 109/77 100 Results - Laboratory Findings CBC and BMP: 05/03/18 03:50 05/03/18 03:50 PT/INR, D-dimer PT 11.6 Seconds (9.4-12.1) 05/02/18 11:07 Abnormal lab findings: Abnormal lab results WBC 49.1 K/mcL (4.3-11.1) H* 05/02/18 11:07 Hgb 12.1 g/dL (12.9-16.9) L D 05/02/18 11:07 MCH 24.6 pg (28.0-33.3) L 05/02/18 11:07 MCHC 28.4 g/dL (31.6-35.5) L 05/02/18 11:07 RDW 16.8 % (11.5-14.5) H 05/02/18 11:07 Plt Count 442 K/mcL (140-400) H 05/02/18 11:07 Neutrophils # 47.1 K/mcL (1.6-8.9) H 05/02/18 11:07 Heparin Anti-Xa, Unfract 0.00 IU/mL (0.30-0.70) L 05/02/18 13:17 VBG pH 7.10 pH Units (7.32-7.42) L* 05/02/18 13:16 VBG pCO2 27 mmHg (41-51) L 05/02/18 13:16 VBG pO2 53 mmHg (25-50) H 05/02/18 13:16 VBG HCO3 9 mEq/L (21-27) L 05/02/18 13:16 Potassium 5.4 mEq/L (3.5-5.1) H 05/02/18 12:33 Carbon Dioxide 8 mEq/L (23-29) L* 05/02/18 12:33 BUN 48 mg/dL (6-20) H 05/02/18 12:33 Creatinine 1.39 mg/dL (0.70-1.30) H 05/02/18 12:33 Est GFR (Non-Af Amer) 53 (> 60) L 05/02/18 12:33 BUN/Creatinine Ratio 35 (6-26) H 05/02/18 12:33 Glucose 629 mg/dL (70-105) H* 05/02/18 14:21 POC Glucose 486 mg/dL (70-99) H* 05/02/18 15:13 Calculated Osmolality 330 (280-300) H 05/02/18 12:33 Calcium 8.1 mg/dL (8.6-10.3) L 05/02/18 12:33 AST 11 Units/L (13-39) L 05/02/18 11:07 Alkaline Phosphatase 120 Units/L (34-104) H 05/02/18 11:07 Troponin I 0.27 ng/mL (< 0.04) H* 05/02/18 11:07 Albumin 3.4 g/dL (3.5-5.7) L 05/02/18 11:07 Globulin 4.1 g/dL (2.4-3.5) H 05/02/18 11:07 Albumin/Globulin Ratio 0.8 (1.1-2.2) L 05/02/18 11:07 Lipase 404 Units/L (11-82) H 05/02/18 11:07 Beta-Hydroxybutyric Acd > 2.00 mmol/L (0.02-0.27) H 05/02/18 11:07 Ur Specific [place] 1.029 (1.010-1.025) H 05/02/18 11:29 Urine Protein 30 mg/dL (Neg-Trace) H 05/02/18 11:29 Urine Glucose (UA) >=1000 mg/dL (Normal) H 05/02/18 11:29 Urine Ketones >=160 mg/dL (Negative) H 05/02/18 11:29 Urine Blood Small (Negative) H 05/02/18 11:29 Ur Leukocyte Esterase Small (Negative) H 05/02/18 11:29 Urine Microscopic WBC 50-100 per hpf (0-3) H 05/02/18 11:29 Ur Culture Indicated? YES (NO) A 05/02/18 11:29 - Attending Attestation I examined this patient and my medical decision-making was reviewed with the Resident Physician. I agree with the documented findings, disposition and treatment plan as described except to the extent set forth below. Patient seen and examined. I was called by the emergency room physician to evaluate this patient and he was seen and examined in the emergency room as well as in the ICU. Labs, radiology, chart personally reviewed. 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 GI: Nutrition per dietary and GI prophylaxis per routine Heme: DVT prophylaxis per routine ID: Continue antibiotics and plan to de-escalation. ID is following up and pt needs to be on contact isolation. Renal; urine out put and renal funtion reviewed. Patient with evidence of acute kidney injury and I believe with fluid resuscitation it will help. Patient with evidence of anion gap metabolic acidosis from DKA. Patient with evidence of hypovolemia and needs more aggressive fluid resuscitation and this was discussed with the emergency room physician. Endorcine: blood glucose is monitored. Will resume his home treatment and lower dose, concern of hypoglycemia because poor intake. Lines: all lines checked and no evidence of infections Skin: skin care to prevent pressure ulcers per nursing routine care. Patient with history of MRSA and he does have a wound in his lower extremity. Patient will be covered with broad-spectrum antibiotics. Pt will be transferred to the floor once he is hemodynamically stable.
[2018-05-02] MEDS ORDERED: D5% in 0.45% NACL w KCl 20 MEQ/1,000 ML MLS IVC PRN (16:39)
[2018-05-02] MEDS ORDERED: Insulin Regular, Human 100 UNIT/ML IV PRN (16:39)
[2018-05-02] MEDS ORDERED: D5% in 0.45% NACL 1,000 ML IVC PRN (16:39)
[2018-05-02] MEDS ORDERED: Naloxone 0.4 MG/ML INJ IVP PRN (16:53)
[2018-05-02] MEDS ORDERED: OXYCODONE Oral CONC 10 MG/0.5 ML ORAL.SYG SL PRN (16:58)
[2018-05-02] MEDS ORDERED: Ondansetron 4 MG/2 ML VIAL IVP PRN (17:39)
[2018-05-02] MEDS ORDERED: *HR* Heparin 5,000 UNIT/ML VIAL IVP PRN ×2 (18:00)
[2018-05-02] MEDS ORDERED: *HR* Heparin 5,000 UNIT/ML VIAL IVP ONE (18:00)
[2018-05-02] MEDS ORDERED: Heparin 25,000 UNIT/500 ML D5W 25,000 UNIT/500 ML BAG IVC SCH (18:00)
--- NOTE | 2018-05-02 18:04 | Urology - Consult Note ---
Date of Encounter: 05/02/18 Time of Encounter: 18:01 - Assessment and Plan (1) Urinary retention Current Visit: Yes Status: Acute Assessment and plan: Patient was prepped and draped in normal sterile fashion. I then placed a 10 mL's of lidocaine in the patient's urethra. I then was able to place an 18- [place] coude catheter with a moderate amount of resistance around the patient's prostate. 10 mL's of saline was placed in balloon. 400 mL's of urine returned. Patient can keep catheter in place as long as needed by primary team. (2) Pyelonephritis Current Visit: Yes Status: Acute Assessment and plan: Recommend to continue broad-spectrum anabolic's. (3) ANGELICA (acute kidney injury) Current Visit: No Status: Acute Assessment and plan: Expect that kidney function will improve with treatment of diabetic ketoacidosis as well as catheter placement draining urine. Urology CN:ADRIEL Consult date: 05/02/18 Reason for consult Urology: Difficult [place] Requesting physician: Keith Galarza History of present illness: Juan Carlos is a 58-year-old male who was admitted to the ICU secondary to diabetic ketoacidosis. Patient had CT scan performed which showed possible pyelonephritis. Patient also with difficulty with catheter lay stent. Multiple attempts of catheter placement were done but were unsuccessful. Patient denies any significant voiding problems in the past. Patient is somewhat confused. He is unsure of why he is actually admitted to the hospital. Past Med Surg Social Fam HX - Past Medical History Medical history: CHF, coronary artery disease, CVA, DVT, diabetes, GERD, hyperlipidemia, hypertension, myocardial infarction, peripheral artery disease, seizures, other Additional medical history: PVD, Phlebitis, B/L extremity claudication, Rotator cuff tear, testicular pain, Psychiatric history: anxiety, depression - Past Surgical History Surgical History: angioplasty/stent, cholecystectomy, coronary bypass (CABG), IVC Filter, LE Bypass, LE stent(s), vascular surgery, other Additional surgical history: left KKA, LHC stent, Colonoscopy, Right AKA - Social History Smoking Status: Current every day smoker Smokeless Tobacco Status: No Alcohol use: none Drug use: none - Family History Father Adopted: No Living Status: Still Living Hx Family Cardiac Disorders: Yes (CABG) Hx Family Endocrine Disorder: Yes Medications and Allergies Clopidogrel [Plavix] 75 mg PO DAILY 02/04/15 [History] Simvastatin [Zocor] 40 mg PO HS 08/06/16 [History] Fenofibrate Nanocrystallized [Tricor] 145 mg PO DAILY 02/09/17 [History] Phenytoin ER [Dilantin ER] 100 mg PO TID #30 capsule 04/18/17 [Rx] Sertraline [Zoloft] 100 mg PO DAILY #30 tablet 04/18/17 [Rx] Tizanidine HCl 4 mg PO TID PRN #10 tablet 04/18/17 [Rx] Rivaroxaban [Xarelto] 20 mg PO DAILY #30 tablet 07/11/17 [Rx] Gabapentin [Neurontin] 800 mg PO TID 08/11/17 [History] Amitriptyline [Elavil] 25 mg PO HS 12/23/17 [History] Ascorbic Acid [Vitamin C] 500 mg PO DAILY #30 tablet.er 01/08/18 [Rx] Omeprazole [PriLOSEC] 40 mg PO DAILY PRN #0 01/08/18 [Rx] Insulin ASPART [Novolog Flexpen] 0 unit SQ TID 05/02/18 [History] Insulin Degludec [Tresiba Flextouch U-200] 40 unit SQ BID 05/02/18 [History] Lisinopril 2.5 mg PO DAILY 05/02/18 [History] Nitroglycerin [Nitrostat] 0.4 mg SL Q5M PRN 05/02/18 [History] Allergy/AdvReac Type Severity Reaction Status Date / Time No Known Allergies Allergy Verified 08/16/17 10:17 Review of Systems ROS unobtainable: due to mental status Exam Initial Vital Signs Temp Pulse Resp BP Pulse Ox 97.9 F 67 26 112/73 100 05/02/18 10:35 05/02/18 10:35 05/02/18 10:35 05/02/18 10:35 05/02/18 10:35 - General physical appearance Present: well developed, well nourished - Eyes Present: PERRL - Neck Present: no masses, no lymphadenopathy - Respiratory Present: normal respiratory effort - Cardiovascular Cardiovascular exam IM: tachycardia - Abdomen Abdomen: Present: soft. Absent: tender, guarding, rigid, rebound - Genitourinary normal penis with no external lesions, testicles non-tender - Integumentary Present: no rash, no growths, no abnormal pigmentation - Neurologic Present: disoriented - Musculoskeletal Present: other (Right AKA normal left lower extremity) Urology Results - Labs 05/02/18 11:07 05/02/18 14:21 Abnormal lab results WBC 49.1 K/mcL (4.3-11.1) H* 05/02/18 11:07 Hgb 12.1 g/dL (12.9-16.9) L D 05/02/18 11:07 MCH 24.6 pg (28.0-33.3) L 05/02/18 11:07 MCHC 28.4 g/dL (31.6-35.5) L 05/02/18 11:07 RDW 16.8 % (11.5-14.5) H 05/02/18 11:07 Plt Count 442 K/mcL (140-400) H 05/02/18 11:07 Neutrophils # 47.1 K/mcL (1.6-8.9) H 05/02/18 11:07 Heparin Anti-Xa, Unfract 0.00 IU/mL (0.30-0.70) L 05/02/18 13:17 VBG pH 7.10 pH Units (7.32-7.42) L* 05/02/18 13:16 VBG pCO2 27 mmHg (41-51) L 05/02/18 13:16 VBG pO2 53 mmHg (25-50) H 05/02/18 13:16 VBG HCO3 9 mEq/L (21-27) L 05/02/18 13:16 Potassium 5.4 mEq/L (3.5-5.1) H 05/02/18 12:33 Carbon Dioxide 8 mEq/L (23-29) L* 05/02/18 12:33 BUN 48 mg/dL (6-20) H 05/02/18 12:33 Creatinine 1.39 mg/dL (0.70-1.30) H 05/02/18 12:33 Est GFR (Non-Af Amer) 53 (> 60) L 05/02/18 12:33 BUN/Creatinine Ratio 35 (6-26) H 05/02/18 12:33 Glucose 629 mg/dL (70-105) H* 05/02/18 14:21 POC Glucose 486 mg/dL (70-99) H* 05/02/18 15:13 Calculated Osmolality 330 (280-300) H 05/02/18 12:33 Calcium 8.1 mg/dL (8.6-10.3) L 05/02/18 12:33 AST 11 Units/L (13-39) L 05/02/18 11:07 Alkaline Phosphatase 120 Units/L (34-104) H 05/02/18 11:07 Troponin I 0.27 ng/mL (< 0.04) H* 05/02/18 11:07 Albumin 3.4 g/dL (3.5-5.7) L 05/02/18 11:07 Globulin 4.1 g/dL (2.4-3.5) H 05/02/18 11:07 Albumin/Globulin Ratio 0.8 (1.1-2.2) L 05/02/18 11:07 Lipase 404 Units/L (11-82) H 05/02/18 11:07 Beta-Hydroxybutyric Acd > 2.00 mmol/L (0.02-0.27) H 05/02/18 11:07 Ur Specific [place] 1.029 (1.010-1.025) H 05/02/18 11:29 Urine Protein 30 mg/dL (Neg-Trace) H 05/02/18 11:29 Urine Glucose (UA) >=1000 mg/dL (Normal) H 05/02/18 11:29 Urine Ketones >=160 mg/dL (Negative) H 05/02/18 11:29 Urine Blood Small (Negative) H 05/02/18 11:29 Ur Leukocyte Esterase Small (Negative) H 05/02/18 11:29 Urine Microscopic WBC 50-100 per hpf (0-3) H 05/02/18 11:29 Ur Culture Indicated? YES (NO) A 05/02/18 11:29 Diabetes panel 05/02/18 05/02/18 05/02/18 Range/Units 11:07 12:33 14:21 Sodium 133 L 137 (136-145) mEq/L Potassium 5.4 H 5.4 H (3.5-5.1) mEq/L Chloride 94 L 100 (98-107) mEq/L Carbon Dioxide 6 L* 8 L* (23-29) mEq/L BUN 52 H 48 H (6-20) mg/dL Creatinine 1.59 H 1.39 H (0.70-1.30) mg/dL Glucose 778 H* 705 H* 629 H* (70-105) mg/dL Calcium 8.8 8.1 L (8.6-10.3) mg/dL AST 11 L (13-39) Units/L ALT 11 (7-52) Units/L Alkaline Phosphatase 120 H (34-104) Units/L Albumin 3.4 L (3.5-5.7) g/dL Calcium panel 05/02/18 05/02/18 Range/Units 11:07 12:33 Calcium 8.8 8.1 L (8.6-10.3) mg/dL Albumin 3.4 L (3.5-5.7) g/dL Pituitary panel 05/02/18 05/02/18 05/02/18 Range/Units 11:07 12:33 14:21 Sodium 133 L 137 (136-145) mEq/L Potassium 5.4 H 5.4 H (3.5-5.1) mEq/L Chloride 94 L 100 (98-107) mEq/L Carbon Dioxide 6 L* 8 L* (23-29) mEq/L BUN 52 H 48 H (6-20) mg/dL Creatinine 1.59 H 1.39 H (0.70-1.30) mg/dL Glucose 778 H* 705 H* 629 H* (70-105) mg/dL Calcium 8.8 8.1 L (8.6-10.3) mg/dL Adrenal panel 05/02/18 05/02/18 05/02/18 Range/Units 11:07 12:33 14:21 Sodium 133 L 137 (136-145) mEq/L Potassium 5.4 H 5.4 H (3.5-5.1) mEq/L Chloride 94 L 100 (98-107) mEq/L Carbon Dioxide 6 L* 8 L* (23-29) mEq/L BUN 52 H 48 H (6-20) mg/dL Creatinine 1.59 H 1.39 H (0.70-1.30) mg/dL Glucose 778 H* 705 H* 629 H* (70-105) mg/dL Calcium 8.8 8.1 L (8.6-10.3) mg/dL Total Bilirubin 0.4 (0.3-1.0) mg/dL AST 11 L (13-39) Units/L ALT 11 (7-52) Units/L Alkaline Phosphatase 120 H (34-104) Units/L Albumin 3.4 L (3.5-5.7) g/dL All other labs normal. - Imaging CT scan - abdomen: image reviewed CT scan - pelvis: image reviewed Consult Discharge Plan - Plan Referrals: NONE,PCP [Primary Care Provider] -
[2018-05-02] MEDS: 0.9 % Sodium Chloride 1,000 ML IVC SCH ×5 (18:08→20:57)
[2018-05-02 19:42] LABS: Troponin I 1.56 ng/mL (< 0.04)
[2018-05-02 20:04] LABS: BUN/Creatinine Ratio 35 (6-26); Blood Urea Nitrogen 40 mg/dL (6-20); Calcium 7.8 mg/dL (8.6-10.3); Carbon Dioxide 13 mEq/L (23-29); Chloride 110 mEq/L (98-107); Glucose 293 mg/dL (70-105); Osmolality,Calculated 311 (280-300); Potassium 3.8 mEq/L (3.5-5.1); Sodium 140 mEq/L (136-145); eGFR For Non-African Americans > 60 (> 60)
[2018-05-02] MEDS: 0.45 % Sodium Chloride w/KCl 20 MEQ/1,000 ML MLS IVC SCH ×3 (20:11→22:20)
[2018-05-03] MEDS: Piperacillin/Tazobactam 3.375 GM in 0.9 % Sodium Chloride Mini Bag 100 ML IVPB SCH ×3 (00:08→17:12)
[2018-05-03 00:41] LABS: BUN/Creatinine Ratio 32 (6-26); Blood Urea Nitrogen 31 mg/dL (6-20); Calcium 7.7 mg/dL (8.6-10.3); Carbon Dioxide 18 mEq/L (23-29); Chloride 114 mEq/L (98-107); Glucose 194 mg/dL (70-105); Osmolality,Calculated 302 (280-300); Potassium 3.5 mEq/L (3.5-5.1); Sodium 140 mEq/L (136-145); eGFR For Non-African Americans > 60 (> 60)
[2018-05-03 00:59] LABS: Troponin I 1.65 ng/mL (< 0.04)
[2018-05-03] MEDS ORDERED: *HR* Dextrose 50 % in Water (Syg) 50 ML SYRINGE IVP PRN ×2 (02:25→11:02)
[2018-05-03] MEDS ORDERED: D5% in Water 1,000 ML IVC PRN ×2 (02:25→11:02)
[2018-05-03] MEDS ORDERED: Dextrose Gel 15 GM/37.5 ML TUBE PO PRN ×4 (02:25→11:02)
[2018-05-03] MEDS ORDERED: 0.45 % Sodium Chloride w/KCl 20 MEQ/1,000 ML MLS IVC SCH (02:30)
[2018-05-03] MEDS ORDERED: Insulin DETEMIR 100 UNIT/ML X5UNITS SQ ONE (02:31)
[2018-05-03] MEDS: 0.45 % Sodium Chloride w/KCl 20 MEQ/1,000 ML MLS IVC SCH (02:41)
[2018-05-03] MEDS: 0.9 % Sodium Chloride 1,000 ML IVC SCH (02:41)
--- NOTE | 2018-05-03 03:45 | Electrocardiograph Report ---
[employer] Test Date: 2018-05-02 Pat Name: Juan Carlos Slaughter Department: [id number] Room: 06 Gender: M Architecture Intern: : 1960 Requested By: Keith Galarza Order Number: [id number] Reading MD: Juan Gonzalez Measurements Intervals [place] Rate: 99 P: 59 [place]: 141 QRS: 24 QRSD: 105 T: 100 QT: 367 QTc: 471 Interpretive Statements Sinus rhythm Electronically Signed On 05-03-2018 3:43:11 EST by Juan Gonzalez
[2018-05-03 04:07] LABS: Basophils % 0.2 %; Eosinophils % 0.1 %; Immature Granulocytes % 1.5 % (0-4); Mean Corpuscular Hemoglobin 24.7 pg (28.0-33.3); Nucleated Red Blood Cells 0.1 /100 WBC (0); Red Cell Distribution Width 15.9 % (11.5-14.5)
[2018-05-03 04:08] LABS: Basophils # 0.1 K/mcL (0.0-0.2); Hematocrit 31.3 % (37.5-50.1); Lymphocytes # 1.3 K/mcL (0.6-4.6); Lymphocytes % 4.2 %; Mean Corpuscular HGB Conc 31.9 g/dL (31.6-35.5); Mean Corpuscular Volume 77.3 fL (83.0-100.0); Mean Platelet Volume 10.6 fL (9.4-12.4); Monocytes # 2.7 K/mcL (0.0-1.3); Monocytes % 8.8 %; Neutrophils # 25.7 K/mcL (1.6-8.9); Platelet Count 351 K/mcL (140-400); Red Blood Count 4.05 M/mcL (4.19-5.50); Segmented Neutrophils % 85.2 %
[2018-05-03 04:22] LABS: BUN/Creatinine Ratio 33 (6-26); Blood Urea Nitrogen 26 mg/dL (6-20); Calcium 7.4 mg/dL (8.6-10.3); Carbon Dioxide 19 mEq/L (23-29); Chloride 115 mEq/L (98-107); Glucose 159 mg/dL (70-105); Magnesium 1.7 mg/dL (1.6-2.6); Osmolality,Calculated 302 (280-300); Phosphorous 1.1 mg/dL (2.7-4.5); Potassium 3.4 mEq/L (3.5-5.1); Sodium 142 mEq/L (136-145); eGFR For Non-African Americans > 60 (> 60)
[2018-05-03 04:38] LABS: Platelet Estimate Normal (Normal)
[2018-05-03 05:44] LABS: Acinetobacter baumannii by PCR Not Detected (Not Detect); Candida albicans by PCR Not Detected (Not Detect); Candida glabrata by PCR Not Detected (Not Detect); Candida krusei by PCR Not Detected (Not Detect); Candida parapsilosis by PCR Not Detected (Not Detect); Candida tropicalis by PCR Not Detected (Not Detect); Enterobacter cloacae Cmplx PCR Not Detected (Not Detect); Enterobacteriaceae by PCR Not Detected (Not Detect); Enterococcus by PCR DETECTED (Not Detect); Escherichia coli by PCR Not Detected (Not Detect); Klebsiella oxytoca by PCR Not Detected (Not Detect); Klebsiella pneumoniae by PCR Not Detected (Not Detect); Proteus by PCR Not Detected (Not Detect); Pseudomonas aeruginosa by PCR Not Detected (Not Detect); Serratia marcescens by PCR Not Detected (Not Detect); Staphylococcus aureus by PCR Not Detected (Not Detect); Staphylococcus by PCR Not Detected (Not Detect); Streptococcus agalactiae(B)PCR Not Detected (Not Detect); Streptococcus by PCR Not Detected (Not Detect); Streptococcus pneumoniae PCR Not Detected (Not Detect); Streptococcus pyogenes (A) PCR Not Detected (Not Detect); vanA/B Vancomycin-Resist Genes Not Detected (Not Detect)
[2018-05-03] MEDS ORDERED: Ringers Solution, Lactated 1,000 ML IVC SCH (05:45)
--- NOTE | 2018-05-03 07:04 | Pulmonology Progress Note ---
<Van Gomes - Last Filed: 05/03/18 10:46> Date of Encounter: 05/03/18 Time of Encounter: 06:56 Assessment and Plan (1) DKA (diabetic ketoacidoses) Current Visit: Yes Status: Acute Patient presents with 2 weeks of abdominal pain. Hx of non-compliance. Poor historian. Home medication Insulin Degludec 40 U BID AG acidosis resolved and off insulin drip overnight Given 30U SQ levemir and placed on medium dose SSI Glucose 150-190's Most likely due to non-compliance vs infection secondary to pyelonephritis vs liver abscess Plan: - Continue to monitor glucose - I/O's +6.1L - started on 30u SQ BID levemir - Diabetic diet (2) Pancreatitis, acute Current Visit: No Status: Acute Hx of pancreatitis. Denies hx of alcohol use. In past, cholycystectomy and CBD stone removed. Pancreas normal on CT abd/pelv No transaminitis or elevated bilirubin Suspect due to dehydration secondary to DKA Lipase: 404 -> 362 Plan: - Diabetic diet - Continue maintenance fluids with LR 75ml/hr (3) Pyelonephritis Current Visit: Yes Status: Acute C/o dysuria and flank pain CT abd/pelv: decreased perfusion in the cortex of the left kidney - pyelo vs infiltrating lesion vs renal infarction considered UA: WBCs and LE+ Leukocytosis of 49.1 Suspect potentially due to acute urinary retention - pt had cathether placed by urology on 05/02/18 after failed attempts by nursing staff Plan: - Day 2 of Zosyn and Vanc - WBC 30.2 (49.1) - Cultures: Gram + cocci - enterococcus species (4) Sepsis Current Visit: Yes Status: Acute Suspected source is perihepatic abscess vs pyelonephritis Urine and blood cultures sent on 05/02/18 Vanc and Zosyn started on 05/02/18 HD stable at this time BC gram + cocci (5) Elevated troponin Current Visit: Yes Status: Acute Hx HTN, CABG, CAD s/p stens RCA 2014, RCA 2005, PVD with iliac stents and RLE thrombectomy R fem pop bypass in 2011. Patient c/o chest pain over past couple of months, asymptomatic at this time. Again, poor historian, only provides vague answers Initial roponin in ED 0.27, EKG showed NSR 99 with no STEMI Started on low dose heparin ACS protocol Suspect most likely supply/demand ischemia, given PMHx will continue ACS protocol Plan: - Repeat troponin this AM from 1.65 to 1.37 - DC'd heparin drip - Started back on home Xarelto - Echo ordered per cardiology (6) Hepatic lesion Current Visit: Yes Status: Acute Abd/Pel CT: Right perihepatic abscess versus lesion Started on Zosyn in the ED No elevation of liver enzymes or bilirubine, slight bump in alk phos Plan: - Consult ID, recommend addition of vanco given past cultures with MRSA - MRI to further evaluation liver lesion today (7) ANGELICA (acute kidney injury) Current Visit: No Status: Acute Cr 1.39, baseline is WNL. Suspect secondary to dehydration in setting of DKA Plan: - Resolved overnight - Cr 0.96 (8) DVT prophylaxis Current Visit: Yes Status: Acute DC heparin drip - Start Xarelto today Subjective Principal diagnosis: DKA; pyelonephritis Interval history: Patient is a 58M with extensive cardiac and vascular hx as well as pancreatitis and DMII insulin dependent. No acute events overnight. Objective PUL Vital signs: Last Vital Signs Temp 97.3 F L 05/03/18 03:45 Pulse 88 05/03/18 06:00 Resp 16 05/03/18 06:00 BP 117/58 05/03/18 06:00 Pulse Ox 96 05/03/18 06:00 General appearance: no acute distress Eyes: nonicteric ENT: oropharynx moist Neck: supple Effort: normal Cardiovascular: regular rate and rhythm Gastrointestinal: normoactive bowel sounds Integumentary: normal Extremities: no cyanosis Musculoskeletal: no deformities normal mental status, non-focal exam mood appropriate, affect normal Results - Laboratory Findings CBC and BMP: 05/03/18 03:50 05/03/18 03:50 PT/INR, D-dimer PT 11.6 Seconds (9.4-12.1) 05/02/18 11:07 Abnormal lab findings: Abnormal lab results WBC 30.2 K/mcL (4.3-11.1) H* 05/03/18 03:50 RBC 4.05 M/mcL (4.19-5.50) L 05/03/18 03:50 Hgb 10.0 g/dL (12.9-16.9) L D 05/03/18 03:50 Hct 31.3 % (37.5-50.1) L 05/03/18 03:50 MCV 77.3 fL (83.0-100.0) L D 05/03/18 03:50 MCH 24.7 pg (28.0-33.3) L 05/03/18 03:50 RDW 15.9 % (11.5-14.5) H 05/03/18 03:50 Neutrophils # 25.7 K/mcL (1.6-8.9) H 05/03/18 03:50 Monocytes # 2.7 K/mcL (0.0-1.3) H 05/03/18 03:50 Nucleated RBCs/100 WBC 0.1 /100 WBC (0) H 05/03/18 03:50 Heparin Anti-Xa, Unfract 0.04 IU/mL (0.30-0.70) L 05/03/18 00:05 VBG pH 7.10 pH Units (7.32-7.42) L* 05/02/18 13:16 VBG pCO2 27 mmHg (41-51) L 05/02/18 13:16 VBG pO2 53 mmHg (25-50) H 05/02/18 13:16 VBG HCO3 9 mEq/L (21-27) L 05/02/18 13:16 Potassium 3.4 mEq/L (3.5-5.1) L 05/03/18 03:50 Chloride 115 mEq/L (98-107) H 05/03/18 03:50 Carbon Dioxide 19 mEq/L (23-29) L 05/03/18 03:50 BUN 26 mg/dL (6-20) H 05/03/18 03:50 BUN/Creatinine Ratio 33 (6-26) H 05/03/18 03:50 Glucose 159 mg/dL (70-105) H 05/03/18 03:50 POC Glucose 221 mg/dL (70-99) H 05/03/18 01:16 Calculated Osmolality 302 (280-300) H 05/03/18 03:50 Calcium 7.4 mg/dL (8.6-10.3) L 05/03/18 03:50 Phosphorus 1.1 mg/dL (2.7-4.5) L 05/03/18 03:50 AST 11 Units/L (13-39) L 05/02/18 11:07 Alkaline Phosphatase 120 Units/L (34-104) H 05/02/18 11:07 Troponin I 1.65 ng/mL (< 0.04) H* 05/03/18 00:05 Albumin 3.4 g/dL (3.5-5.7) L 05/02/18 11:07 Globulin 4.1 g/dL (2.4-3.5) H 05/02/18 11:07 Albumin/Globulin Ratio 0.8 (1.1-2.2) L 05/02/18 11:07 Lipase 362 Units/L (11-82) H 05/03/18 03:50 Beta-Hydroxybutyric Acd > 2.00 mmol/L (0.02-0.27) H 05/02/18 11:07 Ur Specific [place] 1.029 (1.010-1.025) H 05/02/18 11:29 Urine Protein 30 mg/dL (Neg-Trace) H 05/02/18 11:29 Urine Glucose (UA) >=1000 mg/dL (Normal) H 05/02/18 11:29 Urine Ketones >=160 mg/dL (Negative) H 05/02/18 11:29 Urine Blood Small (Negative) H 05/02/18 11:29 Ur Leukocyte Esterase Small (Negative) H 05/02/18 11:29 Urine Microscopic WBC 50-100 per hpf (0-3) H 05/02/18 11:29 Ur Culture Indicated? YES (NO) A 05/02/18 11:29 Enterococcus sp PCR DETECTED (Not Detect) A 05/02/18 11:07 - Microbiology Findings Microbiology Findings: Microbiology, Last 48 Hours 05/02/18 15:45 Blood Culture - Preliminary Peripheral Venipuncture Gram Positive Cocci 05/02/18 11:07 Blood Culture - Preliminary Peripheral Venipuncture Gram Positive Cocci - Clinical Findings Intake & Output: Intake & Output 05/02/18 05/02/18 05/03/18 15:59 23:59 07:59 Intake Total 3009 / 3009 3697.6 / 3697.6 1468.3 / 1468.3 Output Total 1500 / 1500 525 / 525 Balance 3009 / 3009 2197.6 / 2197.6 943.3 / 943.3 Weight 63.049 kg 69.4 kg Consult Discharge Plan - Plan Referrals: NONE,PCP [Primary Care Provider] - <Marino Olivas M - Last Filed: 05/03/18 16:14> Date of Encounter: 05/03/18 Objective PUL Vital signs: Last Vital Signs Temp 98.2 F 05/03/18 07:07 Pulse 80 05/03/18 08:00 Resp 16 05/03/18 08:00 BP 112/48 05/03/18 08:00 Pulse Ox 96 05/03/18 08:00 Results - Laboratory Findings CBC and BMP: 05/03/18 03:50 05/03/18 03:50 PT/INR, D-dimer PT 11.6 Seconds (9.4-12.1) 05/02/18 11:07 Abnormal lab findings: Abnormal lab results WBC 30.2 K/mcL (4.3-11.1) H* 05/03/18 03:50 RBC 4.05 M/mcL (4.19-5.50) L 05/03/18 03:50 Hgb 10.0 g/dL (12.9-16.9) L D 05/03/18 03:50 Hct 31.3 % (37.5-50.1) L 05/03/18 03:50 MCV 77.3 fL (83.0-100.0) L D 05/03/18 03:50 MCH 24.7 pg (28.0-33.3) L 05/03/18 03:50 RDW 15.9 % (11.5-14.5) H 05/03/18 03:50 Neutrophils # 25.7 K/mcL (1.6-8.9) H 05/03/18 03:50 Monocytes # 2.7 K/mcL (0.0-1.3) H 05/03/18 03:50 Nucleated RBCs/100 WBC 0.1 /100 WBC (0) H 05/03/18 03:50 Heparin Anti-Xa, Unfract 0.15 IU/mL (0.30-0.70) L 05/03/18 07:40 VBG pH 7.10 pH Units (7.32-7.42) L* 05/02/18 13:16 VBG pCO2 27 mmHg (41-51) L 05/02/18 13:16 VBG pO2 53 mmHg (25-50) H 05/02/18 13:16 VBG HCO3 9 mEq/L (21-27) L 05/02/18 13:16 Potassium 3.4 mEq/L (3.5-5.1) L 05/03/18 03:50 Chloride 115 mEq/L (98-107) H 05/03/18 03:50 Carbon Dioxide 19 mEq/L (23-29) L 05/03/18 03:50 BUN 26 mg/dL (6-20) H 05/03/18 03:50 BUN/Creatinine Ratio 33 (6-26) H 05/03/18 03:50 Glucose 159 mg/dL (70-105) H 05/03/18 03:50 POC Glucose 221 mg/dL (70-99) H 05/03/18 01:16 Calculated Osmolality 302 (280-300) H 05/03/18 03:50 Calcium 7.4 mg/dL (8.6-10.3) L 05/03/18 03:50 Phosphorus 1.1 mg/dL (2.7-4.5) L 05/03/18 03:50 AST 11 Units/L (13-39) L 05/02/18 11:07 Alkaline Phosphatase 120 Units/L (34-104) H 05/02/18 11:07 Troponin I 1.37 ng/mL (< 0.04) H* 05/03/18 07:40 Albumin 3.4 g/dL (3.5-5.7) L 05/02/18 11:07 Globulin 4.1 g/dL (2.4-3.5) H 05/02/18 11:07 Albumin/Globulin Ratio 0.8 (1.1-2.2) L 05/02/18 11:07 Lipase 362 Units/L (11-82) H 05/03/18 03:50 Beta-Hydroxybutyric Acd > 2.00 mmol/L (0.02-0.27) H 05/02/18 11:07 Ur Specific [place] 1.029 (1.010-1.025) H 05/02/18 11:29 Urine Protein 30 mg/dL (Neg-Trace) H 05/02/18 11:29 Urine Glucose (UA) >=1000 mg/dL (Normal) H 05/02/18 11:29 Urine Ketones >=160 mg/dL (Negative) H 05/02/18 11:29 Urine Blood Small (Negative) H 05/02/18 11:29 Ur Leukocyte Esterase Small (Negative) H 05/02/18 11:29 Urine Microscopic WBC 50-100 per hpf (0-3) H 05/02/18 11:29 Ur Culture Indicated? YES (NO) A 05/02/18 11:29 Enterococcus sp PCR DETECTED (Not Detect) A 05/02/18 11:07 - Microbiology Findings Microbiology Findings: Microbiology, Last 48 Hours 05/02/18 15:45 Blood Culture - Preliminary Peripheral Venipuncture Gram Positive Cocci 05/02/18 11:07 Blood Culture - Preliminary Peripheral Venipuncture Gram Positive Cocci - Clinical Findings Intake & Output: Intake & Output 05/02/18 05/03/18 05/03/18 23:59 07:59 15:59 Intake Total 3697.6 / 3697.6 1468.3 / 1468.3 145 / 145 Output Total 1500 / 1500 825 / 825 Balance 2197.6 / 2197.6 643.3 / 643.3 145 / 145 Weight 69.4 kg - Attending Attestation I examined this patient and my medical decision-making was reviewed with the Resident Physician. I agree with the documented findings, disposition and treatment plan as described except to the extent set forth below. Patient seen and examined. Labs, radiology, chart personally reviewed. Agree with resident's history and physical, assessment, plan with following comments: AIRPORT REPRESENTATIVE: Patient follows commands, Pulmonary: Acceptable oxygenation and ventilation Cardiovascular: stable GI: Nutrition per dietary and GI prophylaxis per routine. Patient need to start oral diet and his BMI is from clinically is more underweight rather than his reported BMI. I suspect patient is found because of his amputations. He will need diabetic education. Heme: DVT prophylaxis per routine ID: Continue antibiotics and plan to de-escalation. Infectious disease is following up. Renal; urine out put and renal funtion reviewed. Endorcine: blood glucose is monitored. Patient was treated according to DKA protocol and to resume his insulin at a lower dose because of the risk of hypoglycemia. Lines: all lines checked and no evidence of infections Skin: skin care to prevent pressure ulcers per nursing routine care Patient is stable to be transferred to the floor.
[2018-05-03] MEDS ORDERED: Insulin LISPRO 300 UNITS/3 ML VIAL SQ SCH ×2 (07:30→21:00)
--- NOTE | 2018-05-03 08:36 | Cardiology Consult Note ---
Addendum entered and electronically signed by Pankaj Dunbar MD 05/03/18 16:01: I examined this patient and my medical decision-making was reviewed with the Resident Physician. I agree with the documented findings, disposition and treatment plan as described except to the extent set forth below. A/P: Elevated troponin appears 2/2 DKA, pancreatitis, bacteremia, acidosis CAD sp CABG No further evaluation indicated at this time. Patient has previously refused cardiac imaging/invasive evaluation. Thank you for the consult, Pankaj Dunbar MD [facility] Original Note: Date of Encounter: 05/03/18 Time of Encounter: 10:26 Assessment and Plan (1) Elevated troponin Current Visit: Yes Status: Acute Elevated troponin 0.27,1.56,1.65,1.37 in the setting of pancreatitis, sepsis 2nd to pyelonephritis and enterococcus bacteremia,and DKA patient denies chest pain ECG negative for ischemic changes Nuclear stress test 12/14/16 negative for ischemia echocardiogram 08/07/16: LVEF 65-70 no significant wall motion or valvular abnormalities previous visit with land examiner Dr. Argueta 03/21/2018 patient was adament that he does not want medication changes, stress, echocardiogram or diagnostic hearth cath. history of poor compliance. plan: unlikley this is ACS. troponin elevation 2nd to demand ischemia. awaiting repeat echocardiogram. can discontinue heparin and restart patient's xeralto. (2) CAD (coronary artery disease) Current Visit: Yes Status: Chronic patient has hx of CAD s/p CABG and multiple PCI also history of PVD currently denies chest pain continue plavix, simvastatin, patient is on xeralto for LLE DVT and therefore does not take aspirin due to increased bleeding risk. Qualifiers: Coronary Disease-Associated Artery/Lesion type: bypass graft [place] vs. transplanted heart: [place] heart Associated angina: without angina Qualified Code(s): I25.810 - Atherosclerosis of coronary artery bypass graft(s) without angina pectoris (3) ANGELICA (acute kidney injury) Current Visit: Yes Status: Resolved (4) DKA (diabetic ketoacidoses) Current Visit: Yes Status: Resolved Qualifiers: Diabetes mellitus type: type 2 Diabetes mellitus complication detail: without coma Qualified Code(s): E11.10 - Type 2 diabetes mellitus with ketoacidosis without coma (5) Pancreatitis, acute Current Visit: Yes Status: Acute Qualifiers: Pancreatitis type: other Acute pancreatitis complication: no infection or necrosis Qualified Code(s): K85.80 - Other acute pancreatitis without necrosis or infection (6) PVD (peripheral vascular disease) Current Visit: No Status: Chronic (7) Pyelonephritis Current Visit: Yes Status: Acute 2nd to urinary obstruction alfaro inserted by urology Ct abdomen pelvis shows signs of pyelonephritis management as per primary (8) Sepsis Current Visit: Yes Status: Acute 2nd to enterococcus bacteremia and pyleonephritis management as per primary team Qualifiers: Sepsis type: sepsis due to unspecified organism Qualified Code(s): A41.9 - Sepsis, unspecified organism (9) [id number] kidney injury Current Visit: Yes Status: Acute resolved Qualifiers: Acute renal failure type: unspecified Chronic kidney disease stage: stage 3 (moderate) Qualified Code(s): N17.9 - Acute kidney failure, unspecified; N18.3 - Chronic kidney disease, stage 3 (moderate) Discussion w patient/family: The assessment and plan as outlined above was discussed with the patient and/or family members who expressed understanding and agreement. All questions were answered. Thank you for involving us in the care of your patient. Please call with any questions. History of Present Illness Consult date: 05/03/18 Chief complaint: abdominal pain History of present illness: Mr. Slaughter is a 58 year old male with hx of CAD, CABG, PVD, DM presented with cc of abdominal pain. Patient was not cooperative and not answering questions appropriately, responding ask "Suleman Fonseca" who is his PCP. Most history obtained from [facility] and [facility]. Patient saw Dr. Fonseca in the office 05/01 and reported having nausea emesis and abdominal pain for the past few days. He was not able to tolerate pO intake. He was advised to go to [place] [facility]. He also reports difficulty urinating and dyruria with b/l flank pain. Patient was found to have significat leukocytosis, DKA, pancreatitis, pyelonephritis enteroccoccus bacteremia and elevated troponin (0.27,1.56,1.65,1.37). He denied chest pain to be today. CT abdomen pelvis showed, acute pyelonephritis, possible perihepatic abscess. Cardiology was consulted for NSTEMI and patient is currently on heparin drip. ECG was NSR with rate [address] elevation or depression. Past Med Surg Social Fam HX - Past Medical History Medical history: CHF, coronary artery disease, CVA, DVT, diabetes, GERD, hype rlipidemia, hypertension, myocardial infarction, peripheral artery disease, seizures, other Additional medical history: PVD, Phlebitis, B/L extremity claudication, Rotator cuff tear, testicular pain, Psychiatric history: anxiety, depression - Past Surgical History Surgical History: angioplasty/stent, cholecystectomy, coronary bypass (CABG), IVC Filter, LE Bypass, LE stent(s), vascular surgery, other Additional surgical history: left KKA, LHC stent, Colonoscopy, Right AKA - Social History Smoking Status: Current every day smoker Smokeless Tobacco Status: No Alcohol use: none Drug use: none - Family History Father Adopted: No Living Status: Still Living Hx Family Cardiac Disorders: Yes (CABG) Hx Family Endocrine Disorder: Yes Medications and Allergies Clopidogrel [Plavix] 75 mg PO DAILY 02/04/15 [History] Simvastatin [Zocor] 40 mg PO HS 08/06/16 [History] Fenofibrate Nanocrystallized [Tricor] 145 mg PO DAILY 02/09/17 [History] Phenytoin ER [Dilantin ER] 100 mg PO TID #30 capsule 04/18/17 [Rx] Sertraline [Zoloft] 100 mg PO DAILY #30 tablet 04/18/17 [Rx] Tizanidine HCl 4 mg PO TID PRN #10 tablet 04/18/17 [Rx] Rivaroxaban [Xarelto] 20 mg PO DAILY #30 tablet 07/11/17 [Rx] Gabapentin [Neurontin] 800 mg PO TID 08/11/17 [History] Amitriptyline [Elavil] 25 mg PO HS 12/23/17 [History] Ascorbic Acid [Vitamin C] 500 mg PO DAILY #30 tablet.er 01/08/18 [Rx] Omeprazole [PriLOSEC] 40 mg PO DAILY PRN #0 01/08/18 [Rx] Insulin ASPART [Novolog Flexpen] 0 unit SQ TID 05/02/18 [History] Insulin Degludec [Tresiba Flextouch U-200] 40 unit SQ BID 05/02/18 [History] Lisinopril 2.5 mg PO DAILY 05/02/18 [History] Nitroglycerin [Nitrostat] 0.4 mg SL Q5M PRN 05/02/18 [History] Allergy/AdvReac Type Severity Reaction Status Date / Time No Known Allergies Allergy Verified 08/16/17 10:17 All Systems Review: The remainder of the systems were reviewed and are negative Review of Systems: patient refused to answer my questions for ROS. became very frustrated Physical Examination Vital Signs, Last 4 Hours Temp Pulse Resp BP Pulse Ox 05/03/18 08:00 80 16 112/48 96 05/03/18 07:07 98.2 F 05/03/18 06:00 88 16 117/58 96 05/03/18 05:00 85 16 113/58 95 General: Conversant, Other (agitated) HEENT: Atraumatic, Normocephaly, Mucus Membranes Moist Neck: No JVD Cardiac: Reg Rate and Rhythm, Normal S1 and S2, No Murmur Lungs: Normal Breath Sounds, No Wheeze, Rales, Rhonchi Neuro: Alert and responsive, No focal deficits noted Abdomen: Soft, Other (tender in RLQ ) Skin: No rashes noted on visualized skin, Other Musculoskeletal: No Chest Wall Tenderness, Other Extremities: No Clubbing, No Cyanosis, Normal Pulses, Other (b/l LE amputations noted) Results 05/03/18 03:50 05/03/18 03:50 Lab Results 05/02/18 05/02/18 05/02/18 11:07 11:07 11:07 WBC 49.1 H* Hgb 12.1 L D Hct 42.6 Plt Count 442 H INR 1.0 Sodium 133 L Potassium 5.4 H Chloride 94 L Carbon Dioxide 6 L* BUN 52 H Creatinine 1.59 H Glucose 778 H* Calcium 8.8 Magnesium 2.5 Total Bilirubin 0.4 AST 11 L ALT 11 Alkaline Phosphatase 120 H Troponin I 0.27 H* Lipase 404 H 05/02/18 05/02/18 05/02/18 12:33 14:21 19:00 WBC Hgb Hct Plt Count INR Sodium 137 140 Potassium 5.4 H 3.8 D Chloride 100 110 H Carbon Dioxide 8 L* 13 L BUN 48 H 40 H Creatinine 1.39 H 1.15 Glucose 705 H* 629 H* 293 H Calcium 8.1 L 7.8 L Magnesium Total Bilirubin AST ALT Alkaline Phosphatase Troponin I 1.56 H* Lipase 05/03/18 05/03/18 05/03/18 00:05 03:50 03:50 WBC 30.2 H* Hgb 10.0 L D Hct 31.3 L Plt Count 351 INR Sodium 140 142 Potassium 3.5 3.4 L Chloride 114 H 115 H Carbon Dioxide 18 L 19 L BUN 31 H 26 H Creatinine 0.96 0.79 Glucose 194 H 159 H Calcium 7.7 L 7.4 L Magnesium 1.7 Total Bilirubin AST ALT Alkaline Phosphatase Troponin I 1.65 H* Lipase 05/03/18 05/03/18 03:50 07:40 WBC Hgb Hct Plt Count INR Sodium Potassium Chloride Carbon Dioxide BUN Creatinine Glucose Calcium Magnesium Total Bilirubin AST ALT Alkaline Phosphatase Troponin I 1.37 H* Lipase 362 H Consult Discharge Plan - Plan Referrals: NONE,PCP [Primary Care Provider] -
[2018-05-03] MEDS ORDERED: Gadolinium Contrast Agent (WT Based) IV PRN ×2 (09:52→11:02)
[2018-05-03] MEDS ORDERED: Ondansetron 4 MG/2 ML VIAL IVP PRN (11:02)
[2018-05-03] MEDS ORDERED: Naloxone 0.4 MG/ML INJ IVP PRN (11:02)
[2018-05-03] MEDS ORDERED: *HR* Rivaroxaban 10 MG TABLET PO SCH (12:00)
[2018-05-03] MEDS: Insulin LISPRO 300 UNITS/3 ML VIAL SQ SCH ×3 (12:33→21:36)
--- NOTE | 2018-05-03 14:10 | Electrocardiograph Report ---
[address] [address] Test Date: 2018-05-03 Pat Name: Juan Carlos Slaughter Department: 112 Room: [facility] Gender: M Sales Enablement Lead: : 1960 Requested By: Van Gomes Order Number: [id number] Reading MD: Danna Ordoñez Measurements Intervals [place] Rate: 80 P: 47 [place]: 134 QRS: 1 QRSD: 108 T: 89 QT: 400 QTc: 436 Interpretive Statements SINUS RHYTHM NONSPECIFIC T-WAVE ABNORMALITY Electronically Signed On 05-03-2018 14:09:12 EST by Danna Ordoñez
[2018-05-03] MEDS: *HR* Rivaroxaban 10 MG TABLET PO SCH ×2 (15:06→17:10)
--- NOTE | 2018-05-03 17:24 | Infectious Disease Consult ---
Date of Encounter: 05/03/18 Time of Encounter: 17:17 Assessment and Plan (1) Sepsis Status: Acute Assessment and plan: Technically patient meets severe sepsis criteria Likely secondary to bacteremia, pyelonephritis and possible liver abscess DKA can also cause that, Pancreatitis could also cause that Prognosis guarded Qualifiers: Sepsis type: sepsis due to unspecified organism Qualified Code(s): A41.9 - Sepsis, unspecified organism (2) Gram-positive bacteremia Status: Acute Assessment and plan: 2 out of 2 sets are positive for gram-positive cocci on 05/02/2018 PCR picked up enterococcus species, Yeny/B gene (-) Low index of suspicion for VRE Currently patient is on vancomycin and Zosyn Continue current antibiotic therapy If cultures are positive for VRE will stop the vancomycin and start the patient on daptomycin Goal vancomycin trough around 15 Monitor labs and for drug toxicity (3) Pancreatitis Status: Acute Qualifiers: Chronicity: acute Pancreatitis type: unspecified pancreatitis type Acute pancreatitis complication: unspecified Qualified Code(s): K85.90 - Acute pancreatitis without necrosis or infection, unspecified (4) Peripheral vascular disease due to secondary diabetes Status: Acute (5) DKA (diabetic ketoacidoses) Status: Resolved Qualifiers: Diabetes mellitus type: type 2 Diabetes mellitus complication detail: without coma Qualified Code(s): E11.10 - Type 2 diabetes mellitus with ketoacidosis without coma (6) Pyelonephritis Status: Acute Assessment and plan: Urine culture positive for staph aureus. Susceptibility is pending Currently on vancomycin and Zosyn Awaiting susceptibility (7) Hepatic lesion Status: Acute Assessment and plan: Concern for abscess versus malignancy versus other MRI reviewed Awaiting hepatology input Could be the source of the bacteremia with Enterococcus faecalis (8) Elevated troponin Status: Acute Infectious Disease HPI - Data of Consult Patient: new to practice Consult date: 05/03/18 Requesting Physician: Marino Olivas MD Primary Care Provider: PCP NONE - Consult Narrative Reason for consult: "Pyelonephritis, liver abscess, chronic wounds close " History of present illness: Mr. Slaughter is a 58 year old male Patient is a 58-year-old gentleman who presented to [facility] on 05/02/2018 with abdominal pain and DKA, we are consulted for severe sepsis and antibiotics recommendations. 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 Patient was admitted to the ICU and started on insulin drip. We were asked to evaluate the patient's make further recommendations. Since admission, patient has been afebrile with a MAXIMUM TEMPERATURE of 98.2. Patient has been tachycardic with the heart rate of 104. Initially patient was tachypneic as well when he arrived to the ED with a breathing rate of 26. Presenting WBC was 49,000 with 96% neutrophils. Patient was severely acidotic with a pH of 7.1. Chemistry revealed a BUN of 40 creatinine of 1.15. Patient had no lactic acidosis. Patient did have a troponin leak which peaked at 1.56. Lipase and amylase were also elevated at 404. A urinalysis was obtained and showed some pyuria with WBC count of 5200, small leukocyte esterase. Urine cultures were sent. Blood cultures were also obtained and 2 out of 2 sets are growing gram-positive cocci and the PCR picked up enterococcus species with negative Yeny/B gene. Radiology: CT abdomen and pelvis revealed heterogeneous areas of decreased perfusion in the cortex of the left kidney pattern was suggestive acute pyelonephritis. Low- attenuation lesion just underneath the right hemidiaphragm which may represent perihepatic abscess. MRI of the abdomen 2.53.5 cm lesion in the hepatic segment 8 consideration included abscess, prostatic disease or less likely infarct. 3.3 cm 1.1 cm cystic lesion in the upper pole of the left kidney was suspected blood products consideration included abscess or infiltration. Suspicion for left renal edema potential pulmonary nephritis given the CT appearance. Suspected acute pancreatitis. CC: Marino Olivas MD Past Med Surg Social Fam HX - Past Medical History Medical history: CHF, coronary artery disease, CVA, DVT, diabetes, GERD, hyperlipidemia, hypertension, myocardial infarction, peripheral artery disease, seizures, other Additional medical history: PVD, Phlebitis, B/L extremity claudication, Rotator cuff tear, testicular pain, Psychiatric history: anxiety, depression - Past Surgical History Surgical History: angioplasty/stent, cholecystectomy, coronary bypass (CABG), IVC Filter, LE Bypass, LE stent(s), vascular surgery, other Additional surgical history: left KKA, LHC stent, Colonoscopy, Right AKA - Social History Smoking Status: Current every day smoker Smokeless Tobacco Status: No Alcohol use: none Drug use: none - Family History Father Adopted: No Living Status: Still Living Hx Family Cardiac Disorders: Yes (CABG) Hx Family Endocrine Disorder: Yes Infectious Disease-CN:Meds Clopidogrel [Plavix] 75 mg PO DAILY 02/04/15 [History] Simvastatin [Zocor] 40 mg PO HS 08/06/16 [History] Fenofibrate Nanocrystallized [Tricor] 145 mg PO DAILY 02/09/17 [History] Phenytoin ER [Dilantin ER] 100 mg PO TID #30 capsule 04/18/17 [Rx] Sertraline [Zoloft] 100 mg PO DAILY #30 tablet 04/18/17 [Rx] Tizanidine HCl 4 mg PO TID PRN #10 tablet 04/18/17 [Rx] Rivaroxaban [Xarelto] 20 mg PO DAILY #30 tablet 07/11/17 [Rx] Gabapentin [Neurontin] 800 mg PO TID 08/11/17 [History] Amitriptyline [Elavil] 25 mg PO HS 12/23/17 [History] Ascorbic Acid [Vitamin C] 500 mg PO DAILY #30 tablet.er 01/08/18 [Rx] Omeprazole [PriLOSEC] 40 mg PO DAILY PRN #0 01/08/18 [Rx] Insulin ASPART [Novolog Flexpen] 0 unit SQ TID 05/02/18 [History] Insulin Degludec [Tresiba Flextouch U-200] 40 unit SQ BID 05/02/18 [History] Lisinopril 2.5 mg PO DAILY 05/02/18 [History] Nitroglycerin [Nitrostat] 0.4 mg SL Q5M PRN 05/02/18 [History] Allergy/AdvReac Type Severity Reaction Status Date / Time No Known Allergies Allergy Verified 08/16/17 10:17 ROS unobtainable: due to mental status Exam - Constitutional Vitals: Temp Pulse Resp BP Pulse Ox 98.2 F 80 16 114/59 96 05/03/18 16:38 05/03/18 12:00 05/03/18 12:00 05/03/18 12:00 05/03/18 12:00 General appearance: febrile, disheveled, mild distress, no cooperative - Head Head exam: Present: atraumatic, normocephalic - Eye Eye exam: Present: EOMI, PERRL. Absent: sclera anicteric Additional comments: No conjunctival hemorrhage - ENT ENT exam: Present: mucous membranes dry Additional comments: No oral lesions - Neck Neck exam: Present: full ROM. Absent: meningismus - Respiratory Additional comments: Air sounds audible both lung ca. No rhonchi or wheezing appreciated - Cardiovascular Cardiovascular exam: Present: RRR, +S1, +S2 - GI/Abdominal GI/Abdominal exam: Present: normal bowel sounds, soft, tenderness. Absent: guarding - Extremities Exam Additional comments: Left BKA and right AKA. Stumps appear okay - Neurological Exam Neurological exam: Present: alert, altered Additional comments: Answers simple questions but I am not sure how oriented he is. - Psychiatric Psychiatric exam: Present: agitated, anxious - Skin Skin exam: Present: normal color. Absent: rash Infectious Disease CN: Results - Labs CBC & Chem 7: 05/03/18 03:50 05/03/18 03:50 Cultures: Cultures 05/02/18 11:29 Urine Culture - Preliminary Urine,Clean Catch Staphylococcus aureus 05/02/18 15:45 Blood Culture - Preliminary Peripheral Venipuncture Gram Positive Cocci 05/02/18 11:07 Blood Culture - Preliminary Peripheral Venipuncture Gram Positive Cocci Serology: Serology 05/02/18 05/02/18 Range/Units 11:29 11:07 Urine Color Yellow (Yellow) Urine Clarity Clear (Clear) Urine pH 5.5 (5.0-8.0) pH Units Ur Specific [place] 1.029 H (1.010-1.025) Urine Protein 30 H (Neg-Trace) mg/dL Urine Glucose (UA) >=1000 H (Normal) mg/dL Urine Ketones >=160 H (Negative) mg/dL Urine Blood Small H (Negative) Urine Nitrite Negative (Negative) Urine Bilirubin Negative (Negative) Urine Urobilinogen Normal (Normal) mg/dL Ur Leukocyte Esterase Small H (Negative) Urine Microscopic RBC 0-3 (0-3) per hpf Urine Microscopic WBC 50-100 H (0-3) per hpf Ur Squamous Epith Cells Few (None-Few) per lpf Urine Bacteria None Seen (None-Few) per hpf Hyaline Casts Few (None-Few) per lpf Ur Culture Indicated? YES A (NO) A. baumannii (PCR) Not Detected (Not Detect) Chelle albicans (PCR) Not Detected (Not Detect) C. glabrata (PCR) Not Detected (Not Detect) C. krusei (PCR) Not Detected (Not Detect) C. parapsilosis (PCR) Not Detected (Not Detect) C. tropicalis (PCR) Not Detected (Not Detect) Enterobacteriac sp PCR Not Detected (Not Detect) E. cloacae complex PCR Not Detected (Not Detect) Enterococcus sp PCR DETECTED A (Not Detect) E. coli (PCR) Not Detected (Not Detect) H. influenzae (PCR) Not Detected (Not Detect) Klebsiella oxytoca PCR Not Detected (Not Detect) Klebsiella pneumoniae Not Detected (Not Detect) List. monocytogenes PCR Not Detected (Not Detect) N. meningitidis (PCR) Not Detected (Not Detect) Proteus species (PCR) Not Detected (Not Detect) Serratia marcescens PCR Not Detected (Not Detect) Staphylococcus sp PCR Not Detected (Not Detect) Staph aureus (PCR) Not Detected (Not Detect) mecA-Methicil Res Gene N/A (Not Detect) Streptococcus sp PCR Not Detected (Not Detect) Group A Strep DNA Not Detected (Not Detect) Group B Strep (PCR) Not Detected (Not Detect) Strep pneumoniae (PCR) Not Detected (Not Detect) P. aeruginosa (PCR) Not Detected (Not Detect) Yeny/B-Vanco Res Genes Not Detected (Not Detect) KPC (blaKPC) Detect PCR N/A (Not Detect) Consult Discharge Plan - Plan Referrals: NONE,PCP [Primary Care Provider] -
[2018-05-03] MEDS ORDERED: Insulin DETEMIR 100 UNIT/ML X5UNITS SQ SCH (21:00)
[2018-05-03] MEDS: Ringers Solution, Lactated 1,000 ML IVC SCH (21:30)
[2018-05-03] MEDS: Insulin DETEMIR 100 UNIT/ML X5UNITS SQ SCH (21:37)
[2018-05-04] MEDS: Piperacillin/Tazobactam 3.375 GM in 0.9 % Sodium Chloride Mini Bag 100 ML IVPB SCH ×3 (00:50→17:30)
--- NOTE | 2018-05-04 09:10 | Infectious Disease Progress No ---
Date of Encounter: 05/04/18 Time of Encounter: 10:00 - Assessment and Plan (1) Sepsis Current Visit: Yes Status: Acute Sepsis criteria met on admission: Tachycardia, tachypnea, WBC 49.1 with 96% segmented neutrophils Afebrile since admission, Tmax 98.8 F on 05/03 Source: unclear, but likely multifactorial d/t bacteremia, pyelonephritis, and possible liver abscess DKA and pancreatitis also potential etiologies--DKA now resolved and lipase trending down Causative organism: Likely enterococcus species and/or MRSA Leukocytosis improving WBCs 49.1, 30.2, now 20 No bands on CBC differential, neutrophils 96%, 85%, now 74.5% Lactic acid: 1.3 Lipase: 404 --> 362 BUN 12, Cr 0.59 05/02 urine culture: MRSA with sensitivity to vancomycin 05/02 blood culture: Gram-positive cocci (enterococcus species identified by PCR, Yeny/B gene not detected) 05/02 CXR: No focal lung consolidations, suspicious pulmonary nodules, or pleural effusion 05/02 CT abdomen/pelvis: Heterogeneous areas of decreased perfusion to cortex left kidney, suggestive of acute pyelonephritis; possible perihepatic abscess or nonspecific lesion of hepatic parenchyma below right hemidiaphragm 05/03 MRI abdomen: 3.5 cm x 2.5 cm lesion corresponding with 05/02 CT finding and not seen on 01/04/18 imaging, possibly abscess, metastatic disease, or infarction; 3.3 cm x 2.1 cm cystic lesion upper pole left kidney with suspected blood products, may represent abscess or infarction; left renal edema, potentially pyelonephritis based on it's CT appearance; suspected acute pancreat itis; small bilateral pleural effusions and trace ascites. 05/03 Echocardiogram: no significant valvular dysfunction Zosyn 3.375 gm IV Q8H, day 2 Vancomycin 1 gm IV Q12H pharmacy dosing, day 2 Nystatin suspension 5 mL PO QID, day 1 Recommendations: - Continue IV Vancomycin - Continue IV Zosyn - Repeat 1 set blood cultures - Monitor blood and urine cultures for growth, identification, and susceptibility to tailor antibiotics - Dose adjust antibiotics and monitor for signs of hepato- and nephrotoxicity - Consider consulting IR re: possible liver abscess Qualifiers: Sepsis type: sepsis due to unspecified organism Qualified Code(s): A41.9 - Sepsis, unspecified organism (2) Gram-positive bacteremia Current Visit: Yes Status: Acute 05/02 Blood cultures: gram positive cocci--enterococcus species, negative Yeny/B gene by PCR Low index of suspicion for VRE IV vancomycin and Zosyn as above Recommendations as above (3) Pancreatitis Current Visit: Yes Status: Acute Qualifiers: Chronicity: acute Pancreatitis type: unspecified pancreatitis type Acute pancreatitis complication: unspecified Qualified Code(s): K85.90 - Acute pancreatitis without necrosis or infection, unspecified (4) Peripheral vascular disease due to secondary diabetes Current Visit: Yes Status: Acute (5) DKA (diabetic ketoacidoses) Current Visit: Yes Status: Resolved Qualifiers: Diabetes mellitus type: type 2 Diabetes mellitus complication detail: without coma Qualified Code(s): E11.10 - Type 2 diabetes mellitus with ketoacidosis without coma (6) Pyelonephritis Current Visit: Yes Status: Acute 05/02 urine culture: MRSA with sensitivity to vancomycin Supporting CT and MRI findings as above Antibiotics as above (7) Hepatic lesion Current Visit: Yes Status: Acute Concern for abscess vs malignancy vs other Potential source of bacteremia MRI findings as above Recommendations as above (8) Elevated troponin Current Visit: Yes Status: Acute - Subjective Interval history: Seen and examined this morning at bedside. Patient appears nontoxic, not in acute distress--reports feeling the same as yesterday. He complains of back pain and of feeling a "lump" in his throat. Unclear whether the back pain he complained of was chronic or an acute exacerbation. Also unclear how long he has had this "lump" in his throat and if has gotten better or worse recently. Denies abdominal pain, sore throat, at this time and no fevers, chills, sweats overnight. Infect Dis PN-Objective Data - Labs CBC & Chem 7: 05/05/18 04:00 05/05/18 04:00 Labs: Laboratory Results - last 24 hr 05/03/18 05/03/18 05/03/18 02:14 06:49 11:13 POC Glucose 189 H 210 H 182 H Vancomycin Trough 05/03/18 05/04/18 15:51 08:05 POC Glucose 119 H Vancomycin Trough 14 H Cultures: Cultures 05/02/18 11:29 Urine Culture - Preliminary Urine,Clean Catch Staphylococcus aureus 05/02/18 15:45 Blood Culture - Preliminary Peripheral Venipuncture Gram Positive Cocci 05/02/18 11:07 Blood Culture - Preliminary Peripheral Venipuncture Gram Positive Cocci Serology 05/02/18 05/02/18 Range/Units 11:29 11:07 Urine Color Yellow (Yellow) Urine Clarity Clear (Clear) Urine pH 5.5 (5.0-8.0) pH Units Ur Specific [place] 1.029 H (1.010-1.025) Urine Protein 30 H (Neg-Trace) mg/dL Urine Glucose (UA) >=1000 H (Normal) mg/dL Urine Ketones >=160 H (Negative) mg/dL Urine Blood Small H (Negative) Urine Nitrite Negative (Negative) Urine Bilirubin Negative (Negative) Urine Urobilinogen Normal (Normal) mg/dL Ur Leukocyte Esterase Small H (Negative) Urine Microscopic RBC 0-3 (0-3) per hpf Urine Microscopic WBC 50-100 H (0-3) per hpf Ur Squamous Epith Cells Few (None-Few) per lpf Urine Bacteria None Seen (None-Few) per hpf Hyaline Casts Few (None-Few) per lpf Ur Culture Indicated? YES A (NO) A. baumannii (PCR) Not Detected (Not Detect) Chelle albicans (PCR) Not Detected (Not Detect) C. glabrata (PCR) Not Detected (Not Detect) C. krusei (PCR) Not Detected (Not Detect) C. parapsilosis (PCR) Not Detected (Not Detect) C. tropicalis (PCR) Not Detected (Not Detect) Enterobacteriac sp PCR Not Detected (Not Detect) E. cloacae complex PCR Not Detected (Not Detect) Enterococcus sp PCR DETECTED A (Not Detect) E. coli (PCR) Not Detected (Not Detect) H. influenzae (PCR) Not Detected (Not Detect) Klebsiella oxytoca PCR Not Detected (Not Detect) Klebsiella pneumoniae Not Detected (Not Detect) List. monocytogenes PCR Not Detected (Not Detect) N. meningitidis (PCR) Not Detected (Not Detect) Proteus species (PCR) Not Detected (Not Detect) Serratia marcescens PCR Not Detected (Not Detect) Staphylococcus sp PCR Not Detected (Not Detect) Staph aureus (PCR) Not Detected (Not Detect) mecA-Methicil Res Gene N/A (Not Detect) Streptococcus sp PCR Not Detected (Not Detect) Group A Strep DNA Not Detected (Not Detect) Group B Strep (PCR) Not Detected (Not Detect) Strep pneumoniae (PCR) Not Detected (Not Detect) P. aeruginosa (PCR) Not Detected (Not Detect) Yeny/B-Vanco Res Genes Not Detected (Not Detect) KPC (blaKPC) Detect PCR N/A (Not Detect) - Impressions Impressions Abdomen/Pelvis CT 05/02/18 10:56 IMPRESSION: 1. Heterogeneous areas of decreased perfusion in the cortex of the left kidney. Pattern would suggest acute pyelonephritis. Recommend correlation with clinical exam and urinalysis. An infiltrating lesion or renal infarction may also be considered clinically. 2. Low attenuating lesion just underneath the right hemidiaphragm. This may represent a perihepatic abscess or perhaps a nonspecific lesion within the hepatic parenchyma. Characterization is limited. Further evaluation with hepatic MRI may be helpful to characterize this finding. 3. Stable right adrenal adenoma characterized on prior imaging. D/ / Dionte Zayas MD / Dionte Zayas MD Interpreting Provider: Dionte Zayas MD Echocardiogram 05/03/18 08:33 Impressions: LVEF 55-60%. Normal LV chamber size, wall thickness and overall function. Mild segmental left ventricular systolic dysfunction. Mild left ventricular diastolic dysfunction. Atypical septal motion consistent with post-operative status. Normal right ventricular structure and function. Unable to estimate RVSP due to lack of TR jet. No significant valvular dysfunction. Left Ventricular Wall Motion: Rest Echo Findings The basal inferior wall was hypokinetic. All other wall segments showed normal motion. Findings: Study Quality * Technically adequate exam. ECG Findings * Normal sinus rhythm. Left Ventricle * LVEF 55-60%. * Normal LV chamber size, wall thickness and overall function. * Mild segmental left ventricular systolic dysfunction. * Mild left ventricular diastolic dysfunction. * Atypical septal motion consistent with post-operative status. Right Ventricle * Normal right ventricular structure and function. Left Atrium * Normal left atrial size. Right Atrium * Normal right atrial size. Aortic Valve * Trileaflet aortic valve. * Mildly calcified aortic valve leaflets. * Trace aortic regurgitation. * No aortic stenosis. Mitral Valve * Mildly thickened mitral valve leaflets. * No mitral stenosis. * No mitral regurgitation. Tricuspid Valve * Normal tricuspid valve structure and function. * No tricuspid regurgitation. * Unable to estimate RVSP due to lack of TR jet. Pulmonic Valve * Pulmonic valve is not well visualized. * No pulmonic regurgitation. Aorta * Normally sized aortic root. Pericardium * The pericardium appears normal. IVC * The IVC is not well evaluated. Pulmonary Artery * Normal visualized portions of the main pulmonary artery. Abdomen MRI 05/03/18 09:52 IMPRESSION: 1. Limited examination due to patient termination of the study prior to contrast administration. Additionally, patient motion partially degrades available images. 2. 3.5 cm x 2.5 cm lesion in hepatic segment 8, corresponding with the new CT finding not present on 01/04/2018. Considerations include abscess, metastatic disease, or less likely infarction. Insert liver protocol CT. 3. 3.3 cm x 2.1 cm cystic lesion in the upper pole of the left kidney with suspected blood products, not present on 01/04/2018. Considerations include abscess or infarction. 4. Suspicion for left renal edema, potentially pyelonephritis given the CT appearance. 5. Suspected acute pancreatitis. Trace to small bilateral pleural effusions and trace ascites. 6. Additional incidental findings as above. D/ / Sam Nazario MD / Sam Nazario MD Interpreting Provider: Sam Nazario MD Exam - Constitutional Vitals: Temp Pulse Resp BP Pulse Ox 98.8 F 74 18 128/62 90 05/03/18 21:03 05/04/18 08:01 05/04/18 08:01 05/04/18 08:01 05/04/18 08:01 Exam: General: Vital signs noted, No acute distress, resting in bed, appears nontoxic HEENT: head normocephalic/atraumatic, EOMI, PERRL, sclera anicteric, moist mucus membranes, no conjunctival hemorrhage, edentulous, small white lesions on the tongue possibly candidiasis Neck: Supple, no lymphadenopathy Cardio: RRR, no murmurs, +S1/S2 Pulm: CTAB, no wheezing, rhonchi, rales. Normal respiratory effort. Abdomen: soft, diffusely tender to palpation, normal bowel sounds present, no rebound, rigidity, or distention Extremities: Rt AKA--most distal aspect tender to palpation, Lt BKA, no cyanosis, clubbing, no open wounds seen MSK: no swollen, erythematous, warm joints Neuro: AAOx3, no focal deficit, no speech deficit, CN II-XII grossly intact, moves extremities spontaneously Skin: clean, dry, intact, no rashes observed Psych: Appropriate mood and affect. Answers questions appropriately. Cooperative with exam Consult Discharge Plan - Plan Referrals: NONE,PCP [Primary Care Provider] - - Attending Attestation I examined this patient and my medical decision-making was reviewed with the Resident Physician. I agree with the documented findings, disposition and treatment plan as described except to the extent set forth below.
[2018-05-04] MEDS: Insulin LISPRO 300 UNITS/3 ML VIAL SQ SCH ×4 (09:43→22:47)
[2018-05-04] MEDS: Insulin DETEMIR 100 UNIT/ML X5UNITS SQ SCH ×2 (09:44→22:48)
[2018-05-04 09:51] LABS: Basophils % 0.2 %; Eosinophils % 0.1 %; Hematocrit 31.3 % (37.5-50.1); Immature Granulocytes % 0.7 % (0-4); Lymphocytes # 2.3 K/mcL (0.6-4.6); Lymphocytes % 11.7 %; Mean Corpuscular HGB Conc 31.9 g/dL (31.6-35.5); Mean Corpuscular Hemoglobin 24.8 pg (28.0-33.3); Mean Corpuscular Volume 77.5 fL (83.0-100.0); Monocytes # 2.6 K/mcL (0.0-1.3); Monocytes % 12.8 %; Neutrophils # 14.9 K/mcL (1.6-8.9); Nucleated Red Blood Cells 0.5 /100 WBC (0); Platelet Count 309 K/mcL (140-400); Red Blood Count 4.04 M/mcL (4.19-5.50); Red Cell Distribution Width 15.8 % (11.5-14.5); Segmented Neutrophils % 74.5 %
[2018-05-04] MEDS ORDERED: tiZANidine 4 MG TABLET PO PRN (09:55)
[2018-05-04] MEDS ORDERED: Nitroglycerin 0.4 MG TAB.SUBL SL PRN (09:55)
[2018-05-04 10:03] LABS: BUN/Creatinine Ratio 20 (6-26); Blood Urea Nitrogen 12 mg/dL (6-20); Calcium 7.9 mg/dL (8.6-10.3); Carbon Dioxide 23 mEq/L (23-29); Chloride 114 mEq/L (98-107); Glucose 120 mg/dL (70-105); Osmolality,Calculated 295 (280-300); Potassium 3.1 mEq/L (3.5-5.1); Sodium 142 mEq/L (136-145); eGFR For Non-African Americans > 60 (> 60)
[2018-05-04] MEDS: Ringers Solution, Lactated 1,000 ML IVC SCH (11:56)
--- NOTE | 2018-05-04 13:44 | Internal Med Progress Note ---
<Armando Del Castillo - Last Filed: 05/04/18 14:21> Hospitalist Progress Note - Encounter Date of Encounter: 05/04/18 Time of Encounter: 10:30 - Exam Vitals: Temp Pulse Resp BP Pulse Ox 98.6 F 76 16 112/68 94 05/04/18 11:15 05/04/18 11:15 05/04/18 11:15 05/04/18 11:15 05/04/18 11:15 - Assessment and Plan (1) DKA (diabetic ketoacidoses) Current Visit: Yes Status: Resolved (2) Pyelonephritis Current Visit: Yes Status: Acute (3) Hepatic lesion Current Visit: Yes Status: Acute (4) Elevated troponin Current Visit: Yes Status: Acute (5) Sepsis Current Visit: Yes Status: Acute (6) Gram-positive bacteremia Current Visit: Yes Status: Acute (7) Pancreatitis Current Visit: Yes Status: Acute (8) Peripheral vascular disease due to secondary diabetes Current Visit: Yes Status: Acute - Time Spent with Patient Total time spent is greater than 50% in coordination of care (as documented) at patient's floor/unit and/or counseling patient: Internal Medicine: Result - Labs CBC & Chem 7: 05/04/18 09:29 05/04/18 09:29 Labs: Short CBC 05/04/18 Range/Units 09:29 WBC 20.0 H (4.3-11.1) K/mcL Hgb 10.0 L (12.9-16.9) g/dL Hct 31.3 L (37.5-50.1) % Plt Count 309 (140-400) K/mcL Neutrophils # 14.9 H (1.6-8.9) K/mcL BMP 05/04/18 09:29 Sodium 142 Potassium 3.1 L Chloride 114 H Carbon Dioxide 23 BUN 12 Creatinine 0.59 L Glucose 120 H Calcium 7.9 L - ABG Interpretation ABG results: PT/INR, D-dimer PT 11.6 Seconds (9.4-12.1) 05/02/18 11:07 - Impressions Impressions Abdomen MRI 05/03/18 09:52 IMPRESSION: 1. Limited examination due to patient termination of the study prior to contrast administration. Additionally, patient motion partially degrades available images. 2. 3.5 cm x 2.5 cm lesion in hepatic segment 8, corresponding with the new CT finding not present on 01/04/2018. Considerations include abscess, metastatic disease, or less likely infarction. Insert liver protocol CT. 3. 3.3 cm x 2.1 cm cystic lesion in the upper pole of the left kidney with suspected blood products, not present on 01/04/2018. Considerations include abscess or infarction. 4. Suspicion for left renal edema, potentially pyelonephritis given the CT appearance. 5. Suspected acute pancreatitis. Trace to small bilateral pleural effusions and trace ascites. 6. Additional incidental findings as above. D/ / Sam Nazario MD / Sam Nazario MD Interpreting Provider: Sam Nazario MD Consult Discharge Plan - Plan Referrals: NONE,PCP [Primary Care Provider] - - Attending Attestation I saw evaluated and examined this patient and my medical decision-making was reviewed with the Resident Physician, Juan Carlos Mckay. I agree with the documented findings, disposition and treatment plan as described except to any changes set forth below. We independently had [id number] contact with the patient. Patient hospitalized in ICU initially for DKA along with sepsis and acute pancreatitis. Sepsis believed to be due to pyelonephritis. Patient is in down in bed. Initially denied any pain but his been having cramps and severe abdominal pain intermittently I was visiting him. He appears upset that he is in the hospital and is asking when he can be discharged. I explained to him his multiple medical issues and what he is being treated for. He expressed understanding. He denies any cough or shortness of breath. States that he just wants to keep sleeping. On exam, patient is awake and alert. Coarse breath sounds bilaterally. Prolonged expiratory phase. S1 and S2 are normal. No pedal edema noted. Diffuse abdominal tenderness. Abdomen is distended. Status post right AKA. And left BKA. Sepsis from acute pyelonephritis and gram-positive bacteremia: Continue IV antibiotics. Done yesterday without contrast showed abnormal lesion in the liver and kidney concerning for abscess or infarction. Infectious disease fo jennifer. Will discuss recommendations including if patient would need IR guided drainage. High risk for complications. Blood cultures are growing gram- positive cocci. Urine culture positive for methicillin-resistant staph aureus. Acute pancreatitis. Lipase remains elevated but trending down. Keep nothing by mouth. Supportive care. Patient is status post cholecystectomy. Diabetic ketoacidosis: Now resolved. Continue diabetes management with sliding scale insulin. Diabetic diet. Elevated troponin: Troponin peaked at 1.65. Patient denies any chest pain. Cardiology evaluated patient and do not recommend any intervention. At this time, troponin elevation believed to be due to underlying medical issues rather than non-ST elevation ME. Patient has refused intervention previously. For now continue medications including Plavix, Zocor, lisinopril. DVT prophylaxis: Patient is on Xarelto High risk for complications. <Juan Carlos Mckay - Last Filed: 05/04/18 16:55> Hospitalist Progress Note - Encounter Date of Encounter: 05/04/18 Time of Encounter: 13:44 - Subjective Interval History: Mr. Slaughter has been seen about a patient bedside after transfer from the ICU. He states that he is very tired and would like to be left alone. He complains of abdominal pain and just generalized fatigue. He would like to be left alone and does not answer any other further questions appropriately. He does deny fevers, chills, diaphoresis, nausea vomiting or diarrhea. - Exam Vitals: Temp Pulse Resp BP Pulse Ox 98.6 F 76 16 112/68 94 05/04/18 11:15 05/04/18 11:15 05/04/18 11:15 05/04/18 11:15 05/04/18 11:15 Exam: General alert awake and interactive and no acute distress HEENT normocephalic atraumatic mucous membranes moist neck supple trachea midline Cardiac: Regular rate rhythm positive S1 and S2 Respiratory clear to auscultation bilateral Abdomen soft, diffuse tenderness to palpation, positive bowel sounds Extremities: Bilateral lower extremity amputations without signs of erythema or edema or signs of infection. Patient spontaneously moving both upper extremities without dysfunction - Assessment and Plan (1) DKA (diabetic ketoacidoses) Current Visit: Yes Status: Resolved Assessment and Plan: Diabetic ketoacidosis, anion gap at admission was 33 Patient uncontrolled type II diabetic insulin-dependent. - Completed DKA protocol, anion gap closed. Plan: - Continue Levemir 30 units subcutaneous twice a day - Continue sliding scale - Before meals at bedtime glucose (2) Pyelonephritis Current Visit: Yes Status: Acute Assessment and Plan: Patient was admitted with concerning findings for pyelonephritis, abnormal vitals and increased ABC. - This was in the setting of uncontrolled type 2 diabetes - Patient's multiple other factors including neurogenic bladder, hyperglycemia, bacteremia all that can be contributed. - I am highly suspicious that he is having seeding from a bacteremia. - Infectious diseases is following (3) Hepatic lesion Current Visit: Yes Status: Acute Assessment and Plan: Concerning for abscess - IR consult - Holding Plavix and Xarelto (4) Elevated troponin Current Visit: Yes Status: Acute Assessment and Plan: Patient has elevated troponins in the setting of severe metabolic acidosis which are now trending down. Likely secondary to supply demand in the setting of acute illness - Continue to monitor - EKG reviewed. (5) Sepsis Current Visit: Yes Status: Acute Assessment and Plan: Patient was admitted with sepsis criteria, found to have DKA with anion gap of 33, WBC count 49, tachycardia 104, tachypnea. - Patient was found to have bacteremia currently growing gram-positive cocci, MRSA urinalysis. - Multiple concerning findings for internal abscesses. (6) Gram-positive bacteremia Current Visit: Yes Status: Acute Assessment and Plan: Patient has Gram-positive cocci growing in his blood cultures 2. He is growing MRSA in his urine there is concern that this may be an MRSA bacteremia. Though his PCR is suggestive of enterococcus, at this time were unsure as this could be VRE or MRSA but we will continue current treatment. - CT exam demonstrates potential for multiple abscesses, there is a abscess in the right upper hepatic lobe, one in the right retroperitoneal space and left k idney. - Consult to interventional radiology - Continue antibiotic recommendations from infectious disease, continue vancomycin, Zosyn. (7) Pancreatitis Current Visit: Yes Status: Acute Assessment and Plan: Patient presented with diabetic ketoacidosis with glucoses greater than 700, anion gap of 33 presenting with elevated lipases diffuse abdominal pain concerns for pancreatitis. - Patient clinically improving continue nothing by mouth - We will start with clear liquids, pills, advance diet starting tomorrow. - If patient does not tolerate put him back on nothing by mouth. - Continue pain control (8) Peripheral vascular disease due to secondary diabetes Current Visit: Yes Status: Acute Assessment and Plan: Patient has uncontrolled type 2 diabetes with secondary complications including coronary vascular disease, peripheral vascular disease resulting in bilateral lower extremity amputations. - Continue Simvastatin DVT Prophylaxis: SQ Heparin - Time Spent with Patient Total time spent is greater than 50% in coordination of care (as documented) at patient's floor/unit and/or counseling patient: Internal Medicine: Result - Labs CBC & Chem 7: 05/04/18 09:29 05/04/18 09:29 Labs: Short CBC 05/04/18 Range/Units 09:29 WBC 20.0 H (4.3-11.1) K/mcL Hgb 10.0 L (12.9-16.9) g/dL Hct 31.3 L (37.5-50.1) % Plt Count 309 (140-400) K/mcL Neutrophils # 14.9 H (1.6-8.9) K/mcL BMP 05/04/18 09:29 Sodium 142 Potassium 3.1 L Chloride 114 H Carbon Dioxide 23 BUN 12 Creatinine 0.59 L Glucose 120 H Calcium 7.9 L - ABG Interpretation ABG results: PT/INR, D-dimer PT 11.6 Seconds (9.4-12.1) 05/02/18 11:07 - Impressions Impressions Abdomen/Pelvis CT 05/02/18 10:56 IMPRESSION: 1. Heterogeneous areas of decreased perfusion in the cortex of the left kidney. Pattern would suggest acute pyelonephritis. Recommend correlation with clinical exam and urinalysis. An infiltrating lesion or renal infarction may also be considered clinically. 2. Low attenuating lesion just underneath the right hemidiaphragm. This may represent a perihepatic abscess or perhaps a nonspecific lesion within the hepatic parenchyma. Characterization is limited. Further evaluation with hepatic MRI may be helpful to characterize this finding. 3. Stable right adrenal adenoma characterized on prior imaging. D/ / Dionte Zayas MD / Dionte Zayas MD Interpreting Provider: Dionte Zayas MD Abdomen MRI 05/03/18 09:52 IMPRESSION: 1. Limited examination due to patient termination of the study prior to contrast administration. Additionally, patient motion partially degrades available images. 2. 3.5 cm x 2.5 cm lesion in hepatic segment 8, corresponding with the new CT finding not present on 01/04/2018. Considerations include abscess, metastatic disease, or less likely infarction. Insert liver protocol CT. 3. 3.3 cm x 2.1 cm cystic lesion in the upper pole of the left kidney with suspected blood products, not present on 01/04/2018. Considerations include abscess or infarction. 4. Suspicion for left renal edema, potentially pyelonephritis given the CT appearance. 5. Suspected acute pancreatitis. Trace to small bilateral pleural effusions and trace ascites. 6. Additional incidental findings as above. D/ / Sam Nazario MD / Sam Nazario MD Interpreting Provider: Sam Nazario MD <Armando Del Castillo - Last Filed: 05/04/18 14:21> (1) DKA (diabetic ketoacidoses) Qualifiers: Diabetes mellitus type: type 2 Diabetes mellitus complication detail: without coma Qualified Code(s): E11.10 - Type 2 diabetes mellitus with ketoacidosis without coma (5) Sepsis Qualifiers: Sepsis type: sepsis due to unspecified organism Qualified Code(s): A41.9 - Sepsis, unspecified organism (7) Pancreatitis Qualifiers: Chronicity: acute Pancreatitis type: unspecified pancreatitis type Acute pancreatitis complication: unspecified Qualified Code(s): K85.90 - Acute pancreatitis without necrosis or infection, unspecified <Juan Carlos Mckay - Last Filed: 05/04/18 16:55> (1) DKA (diabetic ketoacidoses) Qualifiers: Qualified Code(s): E11.10 - Type 2 diabetes mellitus with ketoacidosis without coma (5) Sepsis Qualifiers: Qualified Code(s): A41.9 - Sepsis, unspecified organism (7) Pancreatitis Qualifiers: Qualified Code(s): K85.90 - Acute pancreatitis without necrosis or infection, unspecified
[2018-05-04] MEDS: Nystatin SUSP 5 ML UD.LIQ PO SCH ×3 (16:42→20:19)
[2018-05-04] MEDS: Potassium Chloride Elixir 20 MEQ/15 ML UDC PO SCH ×2 (16:43→18:32)
[2018-05-04] MEDS: Gabapentin 400 MG CAPSULE PO SCH ×2 (16:43→18:32)
[2018-05-04 21:00] LABS: INR 1.3; Prothrombin Time 14.2 Seconds (9.4-12.1)
[2018-05-04] MEDS ORDERED: Potassium Chloride Elixir 20 MEQ/15 ML UDC PO ONE (22:00)
[2018-05-04] MEDS: *HR* Heparin 5,000 UNIT/ML VIAL SQ SCH (22:40)
[2018-05-05] MEDS: Piperacillin/Tazobactam 3.375 GM in 0.9 % Sodium Chloride Mini Bag 100 ML IVPB SCH ×4 (00:22→20:51)
[2018-05-05 05:27] LABS: Basophils # 0.1 K/mcL (0.0-0.2); Basophils % 0.3 %; Eosinophils # 0.1 K/mcL (0.0-0.6); Eosinophils % 0.4 %; Hematocrit 30.9 % (37.5-50.1); Hemoglobin 9.8 g/dL (12.9-16.9); Lymphocytes # 3.1 K/mcL (0.6-4.6); Lymphocytes % 15.7 %; Mean Corpuscular HGB Conc 31.7 g/dL (31.6-35.5); Mean Corpuscular Hemoglobin 24.4 pg (28.0-33.3); Mean Corpuscular Volume 77.1 fL (83.0-100.0); Mean Platelet Volume 11.3 fL (9.4-12.4); Monocytes # 2.4 K/mcL (0.0-1.3); Neutrophils # 13.8 K/mcL (1.6-8.9); Platelet Count 337 K/mcL (140-400); Red Blood Count 4.01 M/mcL (4.19-5.50); Red Cell Distribution Width 15.8 % (11.5-14.5); Segmented Neutrophils % 70.6 %
[2018-05-05] MEDS: Ringers Solution, Lactated 1,000 ML IVC SCH ×3 (05:27→20:22)
[2018-05-05 05:42] LABS: Alanine Aminotransferase 7 Units/L (7-52); Albumin 2.4 g/dL (3.5-5.7); Albumin/Globulin Ratio 0.8 (1.1-2.2); Alkaline Phosphatase 78 Units/L (34-104); Aspartate Amino Transferase 12 Units/L (13-39); BUN/Creatinine Ratio 14 (6-26); Bilirubin,Total 0.6 mg/dL (0.3-1.0); Blood Urea Nitrogen 8 mg/dL (6-20); Calcium 7.9 mg/dL (8.6-10.3); Carbon Dioxide 25 mEq/L (23-29); Chloride 110 mEq/L (98-107); Globulin 2.9 g/dL (2.4-3.5); Glucose 161 mg/dL (70-105); Osmolality,Calculated 292 (280-300); Potassium 3.2 mEq/L (3.5-5.1); Sodium 140 mEq/L (136-145); Total Protein 5.3 g/dL (6.4-8.9); eGFR For Non-African Americans > 60 (> 60)
[2018-05-05] MEDS: *HR* Heparin 5,000 UNIT/ML VIAL SQ SCH ×3 (06:44→20:53)
--- NOTE | 2018-05-05 09:20 | Internal Med Progress Note ---
<Juan Carlos Mckay Eddie - Last Filed: 05/05/18 13:27> Hospitalist Progress Note - Encounter Date of Encounter: 05/05/18 Time of Encounter: 09:00 - Subjective Interval History: Mr. Slaughter seen and evaluated patient bedside. He denies any pain outside of some mild tenderness to abdominal palpation. Denies any fevers, chills, di aphoresis, chest pain, shortness of breath, change in mental status, nausea vomiting diarrhea constipation. He has no further questions at this time. - Exam Vitals: Temp Pulse Resp BP Pulse Ox 99 F 89 18 118/66 93 05/05/18 08:10 05/05/18 08:10 05/05/18 08:10 05/05/18 08:10 05/05/18 08:10 Exam: General alert awake and interactive and no acute distress HEENT normocephalic atraumatic mucous membranes moist neck supple trachea midline Cardiac: Regular rate rhythm positive S1 and S2 Respiratory clear to auscultation bilateral Abdomen soft, diffuse tenderness to palpation, positive bowel sounds Extremities: Bilateral lower extremity amputations without signs of erythema or edema or signs of infection. Patient spontaneously moving both upper extremities without dysfunction - Assessment and Plan (1) DKA (diabetic ketoacidoses) Current Visit: Yes Status: Resolved Assessment and Plan: Diabetic ketoacidosis, anion gap at admission was 33 Patient uncontrolled type II diabetic insulin-dependent. - Completed DKA protocol, anion gap closed. Plan: - Continue Levemir 30 units subcutaneous twice a day - Continue sliding scale - Before meals at bedtime glucose (2) Pyelonephritis Current Visit: Yes Status: Acute Assessment and Plan: Patient was admitted with concerning findings for pyelonephritis, abnormal vitals and increased WBC. - This was in the setting of uncontrolled type 2 diabetes - Patient's multiple other factors including neurogenic bladder, hyperglycemia, bacteremia all that can be contributed. - I am highly suspicious that he is having seeding from a bacteremia. - Infectious diseases is following (3) Hepatic lesion Current Visit: Yes Status: Acute Assessment and Plan: Concerning for abscess - IR consult - Holding Plavix and Xarelto (4) Elevated troponin Current Visit: Yes Status: Acute Assessment and Plan: Patient has elevated troponins in the setting of severe metabolic acidosis which are now trending down. Likely secondary to supply demand in the setting of acute illness - Continue to monitor - EKG reviewed. (5) Sepsis Current Visit: Yes Status: Acute Assessment and Plan: Patient was admitted with sepsis criteria, found to have DKA with anion gap of 33, WBC count 49, tachycardia 104, tachypnea. - Patient was found to have bacteremia currently growing enterococcus , MRSA uri nalysis. - Multiple concerning findings for internal abscesses. (6) Gram-positive bacteremia Current Visit: Yes Status: Acute Assessment and Plan: Patient has Gram-positive cocci growing in his blood cultures 2. He is growing MRSA in his urine there is concern that this may be an MRSA bacteremia. Though his PCR is suggestive of enterococcus, at this time were unsure as this could be VRE or MRSA but we will continue current treatment. - CT exam demonstrates potential for multiple abscesses, there is a abscess in the right upper hepatic lobe, one in the right retroperitoneal space and left kidney. - Consult to interventional radiology - Continue antibiotic recommendations from infectious disease, continue vancomycin, Zosyn. 05/05/2018 blood cultures demonstrate enterococcus sensitive to vancomycin, daptomycin, Zyvox. -Continue vancomycin, awaiting recommendations from infectious disease (7) Pancreatitis Current Visit: Yes Status: Acute Assessment and Plan: Patient presented with diabetic ketoacidosis with glucoses greater than 700, anion gap of 33 presenting with elevated lipases diffuse abdominal pain concerns for pancreatitis. - Patient clinically improving continue nothing by mouth - Starts with clear liquids transition diet as tolerated - Continue pain control (8) Peripheral vascular disease due to secondary diabetes Current Visit: Yes Status: Acute Assessment and Plan: Patient has uncontrolled type 2 diabetes with secondary complications including coronary vascular disease, peripheral vascular disease resulting in bilateral lower extremity amputations. - Continue Simvastatin (9) Endocarditis Current Visit: Yes Status: Acute Assessment and Plan: Mr. Slaughter 58-year-old male found to have enterococcus bacteremia currently on vancomycin which demonstrates sensitivity. - Underwent transesophageal echocardiogram 05/05/2018 found to have endocarditis DVT Prophylaxis: SQ Heparin - Time Spent with Patient Total time spent is greater than 50% in coordination of care (as documented) at patient's floor/unit and/or counseling patient: Internal Medicine: Result - Labs CBC & Chem 7: 05/05/18 04:00 05/05/18 04:00 Labs: Short CBC 05/04/18 05/05/18 Range/Units 09:29 04:00 WBC 20.0 H 19.5 H (4.3-11.1) K/mcL Hgb 10.0 L 9.8 L (12.9-16.9) g/dL Hct 31.3 L 30.9 L (37.5-50.1) % Plt Count 309 337 (140-400) K/mcL Neutrophils # 14.9 H 13.8 H (1.6-8.9) K/mcL BMP 05/04/18 05/05/18 09:29 04:00 Sodium 142 140 Potassium 3.1 L 3.2 L Chloride 114 H 110 H Carbon Dioxide 23 25 BUN 12 8 Creatinine 0.59 L 0.59 L Glucose 120 H 161 H Calcium 7.9 L 7.9 L Liver Function 05/05/18 Range/Units 04:00 Total Bilirubin 0.6 (0.3-1.0) mg/dL AST 12 L (13-39) Units/L ALT 7 (7-52) Units/L Alkaline Phosphatase 78 (34-104) Units/L Albumin 2.4 L (3.5-5.7) g/dL - ABG Interpretation ABG results: PT/INR, D-dimer PT 14.2 Seconds (9.4-12.1) H 05/04/18 20:30 Consult Discharge Plan - Plan Referrals: NONE,PCP [Primary Care Provider] - <Armando Del Castillo - Last Filed: 05/05/18 14:51> Hospitalist Progress Note - Encounter Date of Encounter: 05/05/18 Time of Encounter: 14:44 - Exam Vitals: Temp Pulse Resp BP Pulse Ox 98.2 F 95 16 108/63 98 05/05/18 13:23 05/05/18 13:23 05/05/18 13:23 05/05/18 13:23 05/05/18 13:23 - Assessment and Plan (1) DKA (diabetic ketoacidoses) Current Visit: Yes Status: Resolved (2) Pyelonephritis Current Visit: Yes Status: Acute (3) Hepatic lesion Current Visit: Yes Status: Acute (4) Elevated troponin Current Visit: Yes Status: Acute (5) Sepsis Current Visit: Yes Status: Acute (6) Gram-positive bacteremia Current Visit: Yes Status: Acute (7) Pancreatitis Current Visit: Yes Status: Acute (8) Peripheral vascular disease due to secondary diabetes Current Visit: Yes Status: Acute (9) Endocarditis Current Visit: Yes Status: Acute - Time Spent with Patient Total time spent is greater than 50% in coordination of care (as documented) at patient's floor/unit and/or counseling patient: Internal Medicine: Result - Labs CBC & Chem 7: 05/05/18 04:00 05/05/18 04:00 Labs: Short CBC 05/05/18 Range/Units 04:00 WBC 19.5 H (4.3-11.1) K/mcL Hgb 9.8 L (12.9-16.9) g/dL Hct 30.9 L (37.5-50.1) % Plt Count 337 (140-400) K/mcL Neutrophils # 13.8 H (1.6-8.9) K/mcL BMP 05/05/18 04:00 Sodium 140 Potassium 3.2 L Chloride 110 H Carbon Dioxide 25 BUN 8 Creatinine 0.59 L Glucose 161 H Calcium 7.9 L Liver Function 05/05/18 Range/Units 04:00 Total Bilirubin 0.6 (0.3-1.0) mg/dL AST 12 L (13-39) Units/L ALT 7 (7-52) Units/L Alkaline Phosphatase 78 (34-104) Units/L Albumin 2.4 L (3.5-5.7) g/dL - ABG Interpretation ABG results: PT/INR, D-dimer PT 14.2 Seconds (9.4-12.1) H 05/04/18 20:30 - Attending Attestation I saw evaluated and examined this patient and my medical decision-making was reviewed with the Resident Physician, Juan Carlos Mckay. I agree with the documented findings, disposition and treatment plan as described except to any changes set forth below. We independently had [id number] contact with the patient. Patient lying down in bed. Continues to have abdominal discomfort and pain. No shortness of breath. No episodes of fever overnight. Tolerating IV antibiotics well. On exam, patient is somnolent but awakes to questions and answers appropriately. Coarse breath sounds bilaterally. Prolonged expiratory phase. S1 and S2 are normal. Continues to have diffuse abdominal tenderness. Abdomen is distended. Status post right AKA. And left BKA. Sepsis from acute pyelonephritis and gram-positive bacteremia: Transesophageal echocardiogram done today showed tricuspid aortic valve with vegetation on the right coronary cusp. Measures 1.4 cm x 0.87 cm. Likely source of bacteremia. Patient is on vancomycin. Initial set of blood cultures positive for Ent erococcus faecalis sensitive to vancomycin. Urine culture positive for MRSA sensitive to vancomycin. Patient also has possible hepatic and renal abscesses. Plan for IR guided drainage on Tuesday as patient was on Xarelto and Plavix. Remains at very high risk for complications. We will consider transfer to tertiary care Center for higher level of care. Acute pancreatitis. Start patient on clear liquid diet and advance slowly as tolerated. Diabetic ketoacidosis: Resolved. Diabetes mellitus type 2: Monitor blood sugars. Sliding scale insulin. Elevated troponin: With underlying coronary artery disease. Continue home medications but hold Plavix for planned IR drainage of possible liver and hepatic abscess on Tuesday. DVT prophylaxis: Xarelto held. Will place patient on IV heparin in the meantime for anticoagulation. High risk for complications. <Juan Carlos Mckay - Last Filed: 05/05/18 13:27> (1) DKA (diabetic ketoacidoses) Qualifiers: Diabetes mellitus type: type 2 Diabetes mellitus complication detail: without coma Qualified Code(s): E11.10 - Type 2 diabetes mellitus with ketoacidosis without coma (5) Sepsis Qualifiers: Sepsis type: sepsis due to unspecified organism Qualified Code(s): A41.9 - Sepsis, unspecified organism (7) Pancreatitis Qualifiers: Chronicity: acute Pancreatitis type: unspecified pancreatitis type Acute pancreatitis complication: unspecified Qualified Code(s): K85.90 - Acute pancreatitis without necrosis or infection, unspecified <Armando Del Castillo - Last Filed: 05/05/18 14:51> (1) DKA (diabetic ketoacidoses) Qualifiers: Diabetes mellitus type: type 2 Diabetes mellitus complication detail: without coma Qualified Code(s): E11.10 - Type 2 diabetes mellitus with ketoacidosis without coma (5) Sepsis Qualifiers: Sepsis type: sepsis due to unspecified organism Qualified Code(s): A41.9 - Sepsis, unspecified organism (7) Pancreatitis Qualifiers: Chronicity: acute Pancreatitis type: unspecified pancreatitis type Acute pancreatitis complication: unspecified Qualified Code(s): K85.90 - Acute pancreatitis without necrosis or infection, unspecified
[2018-05-05] MEDS ORDERED: Potassium Chloride Elixir 20 MEQ/15 ML UDC PO SCH (09:30)
[2018-05-05] MEDS: Insulin LISPRO 300 UNITS/3 ML VIAL SQ SCH ×4 (09:35→22:20)
--- NOTE | 2018-05-05 09:43 | Infectious Disease Progress No ---
Date of Encounter: 05/05/18 Time of Encounter: 09:41 - Assessment and Plan (1) Sepsis Current Visit: Yes Status: Acute Sepsis criteria met on admission: Tachycardia, tachypnea, WBC 49.1 with 96% segmented neutrophils--today only criteria met is WBC > 12 Afebrile since admission, Tmax 98.8 F on 05/03 Source: unclear, but likely multifactorial d/t bacteremia, pyelonephritis, and possible liver abscess DKA and pancreatitis also potential etiologies--DKA now resolved and lipase trending down Causative organism: Likely enterococcus species and/or MRSA Leukocytosis improving WBCs 49.1, 30.2, 20, today 19.5 No bands on CBC differential, neutrophils 96%, 85%, 74.5%, today 70.6% Lactic acid: 1.3 Lipase: 404 --> 362 BUN 8, Cr 0.59 with creatinine clearance > 60 mL/min 05/02 urine culture: MRSA with sensitivity to vancomycin 05/02 blood culture: enterococcus faecalis with sensitivity to vancomycin (Yeny/B gene not detected by PCR) 05/04 blood culture: no growth to date x2 bottles 05/02 CXR: No focal lung consolidations, suspicious pulmonary nodules, or pleural effusion 05/02 CT abdomen/pelvis: Heterogeneous areas of decreased perfusion to cortex left kidney, suggestive of acute pyelonephritis; possible perihepatic abscess or nonspecific lesion of hepatic parenchyma below right hemidiaphragm 05/03 MRI abdomen: 3.5 cm x 2.5 cm lesion corresponding with 05/02 CT finding and not seen on 01/04/18 imaging, possibly abscess, metastatic disease, or infarction; 3.3 cm x 2.1 cm cystic lesion upper pole left kidney with suspected blood products, may represent abscess or infarction; left renal edema, potentially pyelonephritis based on it's CT appearance; suspected acute pancreatitis; small bilateral pleural effusions and trace ascites. 05/03 Echocardiogram: no significant valvular dysfunction Zosyn 3.375 gm IV Q8H, day 3 Vancomycin 1 gm IV Q12H pharmacy dosing, day 3 Nystatin suspension 5 mL PO QID, day 2 Recommendations: - Continue IV Vancomycin - Continue IV Zosyn - Monitor blood cultures for growth, identification, and susceptibility to tailor antibiotics - Monitor for signs of hepato- and nephrotoxicity, dose adjust antibiotics Qualifiers: Sepsis type: sepsis due to unspecified organism Qualified Code(s): A41.9 - Sepsis, unspecified organism (2) Gram-positive bacteremia Current Visit: Yes Status: Acute 05/02 Blood cultures: enterococcus faecalis with sensitivity to vancomycin (Yeny/B gene not detected by PCR) Low index of suspicion for VRE IV vancomycin and Zosyn as above Recommendations as above (3) Pancreatitis Current Visit: Yes Status: Acute Qualifiers: Chronicity: acute Pancreatitis type: unspecified pancreatitis type Acute pancreatitis complication: unspecified Qualified Code(s): K85.90 - Acute pancreatitis without necrosis or infection, unspecified (4) Peripheral vascular disease due to secondary diabetes Current Visit: Yes Status: Acute (5) DKA (diabetic ketoacidoses) Current Visit: Yes Status: Resolved Qualifiers: Diabetes mellitus type: type 2 Diabetes mellitus complication detail: without coma Qualified Code(s): E11.10 - Type 2 diabetes mellitus with ketoacidosis without coma (6) Pyelonephritis Current Visit: Yes Status: Acute 05/02 urine culture: MRSA with sensitivity to vancomycin Supporting CT and MRI findings as above Antibiotics as above (7) Hepatic lesion Current Visit: Yes Status: Acute Concern for abscess vs malignancy vs other Potential source of bacteremia MRI findings as above Recommendations as above (8) Elevated troponin Current Visit: Yes Status: Acute - Subjective Interval history: Seen and examined this morning at bedside. He is lying in bed watching TV, appears comfortable. Patient states he feels "like shit" today, continues to have abdominal pain and is experiencing phantom limb pain. He does not answer when asked if the abdominal pain today is better, the same, or worse than yesterday. Reports he has not had a bowel movement in about 6 days, does not provide answer when asked if this constipation is unusual for him or if he has chronic constipation. He is unhappy about not getting his pain medicine yet this morning. Denies fevers, chills, sweats overnight. Infect Dis PN-Objective Data - Labs CBC & Chem 7: 05/05/18 15:04 05/05/18 04:00 Labs: Laboratory Results - last 24 hr 05/03/18 05/04/18 05/04/18 20:46 09:29 09:29 WBC 20.0 H RBC 4.04 L Hgb 10.0 L Hct 31.3 L MCV 77.5 L MCH 24.8 L MCHC 31.9 RDW 15.8 H Plt Count 309 MPV 11.0 Immature Gran % 0.7 Seg Neutrophils % 74.5 Lymphocytes % 11.7 Monocytes % 12.8 Eosinophils % 0.1 Basophils % 0.2 Neutrophils # 14.9 H Lymphocytes # 2.3 Monocytes # 2.6 H Eosinophils # 0.0 Basophils # 0.0 Nucleated RBCs/100 WBC 0.5 H PT INR Sodium 142 Potassium 3.1 L Chloride 114 H Carbon Dioxide 23 BUN 12 Creatinine 0.59 L Est GFR ( Amer) > 60 Est GFR (Non-Af Amer) > 60 BUN/Creatinine Ratio 20 Glucose 120 H POC Glucose 148 H Calculated Osmolality 295 Calcium 7.9 L Total Bilirubin AST ALT Alkaline Phosphatase Serum Total Protein Albumin Globulin Albumin/Globulin Ratio 05/04/18 05/04/18 05/05/18 11:43 20:30 04:00 WBC 19.5 H RBC 4.01 L Hgb 9.8 L Hct 30.9 L MCV 77.1 L MCH 24.4 L MCHC 31.7 RDW 15.8 H Plt Count 337 MPV 11.3 Immature Gran % 1.0 Seg Neutrophils % 70.6 Lymphocytes % 15.7 Monocytes % 12.0 Eosinophils % 0.4 Basophils % 0.3 Neutrophils # 13.8 H Lymphocytes # 3.1 Monocytes # 2.4 H Eosinophils # 0.1 Basophils # 0.1 Nucleated RBCs/100 WBC PT 14.2 H INR 1.3 Sodium Potassium Chloride Carbon Dioxide BUN Creatinine Est GFR ( Amer) Est GFR (Non-Af Amer) BUN/Creatinine Ratio Glucose POC Glucose 78 Calculated Osmolality Calcium Total Bilirubin AST ALT Alkaline Phosphatase Serum Total Protein Albumin Globulin Albumin/Globulin Ratio 05/05/18 04:00 WBC RBC Hgb Hct MCV MCH MCHC RDW Plt Count MPV Immature Gran % Seg Neutrophils % Lymphocytes % Monocytes % Eosinophils % Basophils % Neutrophils # Lymphocytes # Monocytes # Eosinophils # Basophils # Nucleated RBCs/100 WBC PT INR Sodium 140 Potassium 3.2 L Chloride 110 H Carbon Dioxide 25 BUN 8 Creatinine 0.59 L Est GFR ( Amer) > 60 Est GFR (Non-Af Amer) > 60 BUN/Creatinine Ratio 14 Glucose 161 H POC Glucose Calculated Osmolality 292 Calcium 7.9 L Total Bilirubin 0.6 AST 12 L ALT 7 Alkaline Phosphatase 78 Serum Total Protein 5.3 L Albumin 2.4 L Globulin 2.9 Albumin/Globulin Ratio 0.8 L Cultures: Cultures 05/04/18 09:29 Blood Culture - Preliminary Peripheral Venipuncture Culture is incubating and being continuously mo nitored for growth. Final report to follow. 05/04/18 09:29 Blood Culture - Preliminary Peripheral Venipuncture Culture is incubating and being continuously monitored for growth. Final report to follow. 05/02/18 11:29 Urine Culture - Preliminary Urine,Clean Catch Methicillin Resistant S.aureus 05/02/18 15:45 Blood Culture - Preliminary Peripheral Venipuncture Gram Positive Cocci 05/02/18 11:07 Blood Culture - Preliminary Peripheral Venipuncture Gram Positive Cocci Serology 05/02/18 05/02/18 Range/Units 11:29 11:07 Urine Color Yellow (Yellow) Urine Clarity Clear (Clear) Urine pH 5.5 (5.0-8.0) pH Units Ur Specific [place] 1.029 H (1.010-1.025) Urine Protein 30 H (Neg-Trace) mg/dL Urine Glucose (UA) >=1000 H (Normal) mg/dL Urine Ketones >=160 H (Negative) mg/dL Urine Blood Small H (Negative) Urine Nitrite Negative (Negative) Urine Bilirubin Negative (Negative) Urine Urobilinogen Normal (Normal) mg/dL Ur Leukocyte Esterase Small H (Negative) Urine Microscopic RBC 0-3 (0-3) per hpf Urine Microscopic WBC 50-100 H (0-3) per hpf Ur Squamous Epith Cells Few (None-Few) per lpf Urine Bacteria None Seen (None-Few) per hpf Hyaline Casts Few (None-Few) per lpf Ur Culture Indicated? YES A (NO) A. baumannii (PCR) Not Detected (Not Detect) [place] albicans (PCR) Not Detected (Not Detect) C. glabrata (PCR) Not Detected (Not Detect) C. krusei (PCR) Not Detected (Not Detect) C. parapsilosis (PCR) Not Detected (Not Detect) C. tropicalis (PCR) Not Detected (Not Detect) Enterobacteriac sp PCR Not Detected (Not Detect) E. cloacae complex PCR Not Detected (Not Detect) Enterococcus sp PCR DETECTED A (Not Detect) E. coli (PCR) Not Detected (Not Detect) H. influenzae (PCR) Not Detected (Not Detect) Klebsiella oxytoca PCR Not Detected (Not Detect) Klebsiella pneumoniae Not Detected (Not Detect) List. monocytogenes PCR Not Detected (Not Detect) N. meningitidis (PCR) Not Detected (Not Detect) Proteus species (PCR) Not Detected (Not Detect) Serratia marcescens PCR Not Detected (Not Detect) Staphylococcus sp PCR Not Detected (Not Detect) Staph aureus (PCR) Not Detected (Not Detect) mecA-Methicil Res Gene N/A (Not Detect) Streptococcus sp PCR Not Detected (Not Detect) Group A Strep DNA Not Detected (Not Detect) Group B Strep (PCR) Not Detected (Not Detect) Strep pneumoniae (PCR) Not Detected (Not Detect) P. aeruginosa (PCR) Not Detected (Not Detect) Yeny/B-Vanco Res Genes Not Detected (Not Detect) KPC (blaKPC) Detect PCR N/A (Not Detect) Exam - Constitutional Vitals: Temp Pulse Resp BP Pulse Ox 99 F 89 18 118/66 93 05/05/18 08:10 05/05/18 08:10 05/05/18 08:10 05/05/18 08:10 05/05/18 08:10 Exam: General: Vital signs noted, No acute distress, resting in bed, appears nontoxic HEENT: head normocephalic/atraumatic, EOMI, PERRL, sclera anicteric, moist mucus membranes, edentulous Neck: Supple Cardio: RRR, no murmurs, +S1/S2 Pulm: CTAB, no wheezing, rhonchi, rales. Normal respiratory effort. Abdomen: soft, diffusely tender to palpation, normal bowel sounds present, no rebound, rigidity, or distention Extremities: Rt AKA--most distal aspect tender to palpation, Lt BKA, no cyanosis, clubbing, no open wounds seen MSK: no swollen, erythematous, warm joints Neuro: AAOx3, no focal deficit, no speech deficit, CN II-XII grossly intact, moves extremities spontaneously Skin: clean, dry, intact, no rashes observed Consult Discharge Plan - Plan Referrals: NONE,PCP [Primary Care Provider] - - Attending Attestation I examined this patient and my medical decision-making was reviewed with the Resident Physician. I agree with the documented findings, disposition and treatment plan as described except to the extent set forth below.
[2018-05-05] MEDS: Nystatin SUSP 5 ML UD.LIQ PO SCH ×4 (09:44→20:50)
[2018-05-05] MEDS: Ascorbic Acid 500 MG TABLET PO SCH (09:44)
[2018-05-05] MEDS: Gabapentin 400 MG CAPSULE PO SCH ×3 (09:44→20:50)
[2018-05-05] MEDS: Fenofibrate 54 MG TABLET PO SCH ×2 (09:44→16:11)
[2018-05-05] MEDS: OXYCODONE Oral CONC 10 MG/0.5 ML ORAL.SYG SL PRN ×2 (10:20→20:53)
[2018-05-05] MEDS ORDERED: 0.9 % Sodium Chloride 500 ML IVC ONE (11:35)
[2018-05-05] MEDS ORDERED: Lidocaine Viscous Oral Soln 15 ML SOLUTION MM PRN (11:35)
[2018-05-05] MEDS ORDERED: Tetracaine/Benzocaine/Butamben 1 SPRAY AEROSOL MM ONE (11:35)
[2018-05-05] MEDS: *HR* Midazolam HCl 5 MG/5 ML VIAL IVP PRN ×2 (12:20→12:25)
[2018-05-05] MEDS: *HR* FentaNYL (PF) 100 MCG/2 ML VIAL IVP PRN ×2 (12:20→12:25)
[2018-05-05 15:20] LABS: Hematocrit 32.3 % (37.5-50.1); Hemoglobin 10.1 g/dL (12.9-16.9); Mean Corpuscular HGB Conc 31.3 g/dL (31.6-35.5); Mean Corpuscular Hemoglobin 24.6 pg (28.0-33.3); Mean Corpuscular Volume 78.6 fL (83.0-100.0); Mean Platelet Volume 11.1 fL (9.4-12.4); Platelet Count 343 K/mcL (140-400); Red Blood Count 4.11 M/mcL (4.19-5.50); Red Cell Distribution Width 16.1 % (11.5-14.5)
[2018-05-05 15:30] LABS: Heparin anti-factor XA UFH 0.07 IU/mL (0.30-0.70)
[2018-05-05 15:31] LABS: INR 1.3; Prothrombin Time 14.6 Seconds (9.4-12.1)
[2018-05-05] MEDS: Heparin 25,000 UNIT/500 ML D5W 25,000 UNIT/500 ML BAG IVC SCH (16:57)
[2018-05-05] MEDS: Insulin DETEMIR 100 UNIT/ML X5UNITS SQ SCH ×2 (19:23→22:19)
[2018-05-06] MEDS: *HR* Heparin 5,000 UNIT/ML VIAL IVP PRN ×3 (00:08→21:36)
[2018-05-06] MEDS: Piperacillin/Tazobactam 3.375 GM in 0.9 % Sodium Chloride Mini Bag 100 ML IVPB SCH ×3 (04:20→21:08)
[2018-05-06] MEDS ORDERED: Aminoglycoside Consult 1 EACH MC ONE (08:08)
[2018-05-06] MEDS: Insulin LISPRO 300 UNITS/3 ML VIAL SQ SCH ×4 (08:41→21:00)
[2018-05-06] MEDS: Nystatin SUSP 5 ML UD.LIQ PO SCH ×4 (08:54→20:58)
[2018-05-06] MEDS: Insulin DETEMIR 100 UNIT/ML X5UNITS SQ SCH ×2 (08:56→21:00)
[2018-05-06] MEDS: Ascorbic Acid 500 MG TABLET PO SCH (08:57)
[2018-05-06] MEDS: Fenofibrate 54 MG TABLET PO SCH (08:57)
[2018-05-06] MEDS: Gabapentin 400 MG CAPSULE PO SCH ×3 (08:58→20:59)
[2018-05-06 10:47] LABS: Basophils # 0.1 K/mcL (0.0-0.2); Basophils % 0.4 %; Eosinophils # 0.4 K/mcL (0.0-0.6); Eosinophils % 1.8 %; Hematocrit 36.7 % (37.5-50.1); Hemoglobin 11.2 g/dL (12.9-16.9); Immature Granulocytes % 1.8 % (0-4); Lymphocytes # 2.9 K/mcL (0.6-4.6); Lymphocytes % 12.7 %; Mean Corpuscular HGB Conc 30.5 g/dL (31.6-35.5); Mean Corpuscular Hemoglobin 24.3 pg (28.0-33.3); Mean Corpuscular Volume 79.8 fL (83.0-100.0); Mean Platelet Volume 11.9 fL (9.4-12.4); Monocytes # 2.5 K/mcL (0.0-1.3); Monocytes % 11.2 %; Neutrophils # 16.4 K/mcL (1.6-8.9); Platelet Count 410 K/mcL (140-400); Red Cell Distribution Width 16.2 % (11.5-14.5); Segmented Neutrophils % 72.1 %
[2018-05-06 10:57] LABS: BUN/Creatinine Ratio 11 (6-26); Blood Urea Nitrogen 7 mg/dL (6-20); Calcium 8.3 mg/dL (8.6-10.3); Carbon Dioxide 29 mEq/L (23-29); Chloride 106 mEq/L (98-107); Glucose 129 mg/dL (70-105); Osmolality,Calculated 292 (280-300); Sodium 141 mEq/L (136-145); eGFR For Non-African Americans > 60 (> 60)
--- NOTE | 2018-05-06 11:11 | Internal Med Progress Note ---
Hospitalist Progress Note - Encounter Date of Encounter: 05/06/18 Time of Encounter: 09:20 - Subjective Interval History: Patient is awake and alert. Feels better overall. Does continue to have mild abdominal pain although it has improved in severity. He reports that the pain is in the epigastric and right upper quadrant region. No fevers reported o vernight. No nausea or vomiting. Tolerating diet well. No diarrhea. - Exam Vitals: Temp Pulse Resp BP Pulse Ox 97.6 F 90 16 121/97 94 05/06/18 04:30 05/06/18 07:49 05/06/18 07:49 05/06/18 07:49 05/06/18 07:49 Exam: General: Patient is alert, mild distress, oriented x 3 Respiratory: Good respiratory effort. Normal breath sounds. No wheezing or crackles. Cardiovascular: Regular rate and rhythm. s1 and s2 normal , systolic murmur No pedal edema Abdomen: Abdomen is soft, mild epigastric tenderness, no guarding or rigidity. Bowel sounds are present Musculoskeletal: Patient is status post right AKA and left BKA Skin: warm, dry, intact. Neuro: Alert oriented x 3 normal cranial nerves, no focal deficits - Assessment and Plan (1) Sepsis Current Visit: Yes Status: Acute Assessment and Plan: Sepsis with enterococcus faecalis bacteremia. 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 Discussed with [facility] about possible transfer there for intervention given that it is a mobile vegetation,. They recommended continuing antibiotics for now for at least 4-6 weeks prior to evaluation for surgery. Infectious disease following. Patient also has possible liver and kidney abscess on the left side. Plan for IR to do guided drainage on Tuesday. Patient remains at high risk for complications. (2) Pyelonephritis Current Visit: Yes Status: Acute Assessment and Plan: Management as above with IV antibiotics. (3) DKA (diabetic ketoacidoses) Current Visit: Yes Status: Resolved (4) Hepatic lesion Current Visit: Yes Status: Acute (5) Elevated troponin Current Visit: Yes Status: Acute (6) Gram-positive bacteremia Current Visit: Yes Status: Acute Assessment and Plan: Management as above. Repeat cultures have been negative. Infectious disease following (7) Pancreatitis Current Visit: Yes Status: Acute Assessment and Plan: Abdominal pain is improving. Patient is tolerating clear liquid diet. We will advance diet. (8) Peripheral vascular disease due to secondary diabetes Current Visit: Yes Status: Acute Assessment and Plan: Continue to monitor blood sugars. Symptomatic treatment. DVT Prophylaxis: Patient is currently on IV heparin. We will place him back on Xarelto after abscesses are drained - Time Spent with Patient Total time spent is greater than 50% in coordination of care (as documented) at patient's floor/unit and/or counseling patient: Internal Medicine: Result - Labs CBC & Chem 7: 05/06/18 07:53 05/06/18 07:53 Labs: Short CBC 05/05/18 05/06/18 Range/Units 15:04 07:53 WBC 20.2 H 22.7 H (4.3-11.1) K/mcL Hgb 10.1 L 11.2 L (12.9-16.9) g/dL Hct 32.3 L 36.7 L (37.5-50.1) % Plt Count 343 410 H (140-400) K/mcL Neutrophils # 16.4 H (1.6-8.9) K/mcL BMP 05/06/18 07:53 Sodium 141 Potassium 4.0 Chloride 106 Carbon Dioxide 29 BUN 7 Creatinine 0.65 L Glucose 129 H Calcium 8.3 L - ABG Interpretation ABG results: PT/INR, D-dimer PT 14.6 Seconds (9.4-12.1) H 05/05/18 15:04 Consult Discharge Plan - Plan Referrals: NONE,PCP [Primary Care Provider] - (1) Sepsis Qualifiers: Sepsis type: sepsis due to unspecified organism Qualified Code(s): A41.9 - Sepsis, unspecified organism (3) DKA (diabetic ketoacidoses) Qualifiers: Diabetes mellitus type: type 2 Diabetes mellitus complication detail: without coma Qualified Code(s): E11.10 - Type 2 diabetes mellitus with ketoacidosis without coma (7) Pancreatitis Qualifiers: Chronicity: acute Pancreatitis type: unspecified pancreatitis type Acute pa ncreatitis complication: unspecified Qualified Code(s): K85.90 - Acute pancreatitis without necrosis or infection, unspecified
[2018-05-06] MEDS: Lactobacillus 1 EACH CAP.SPRINK PO SCH ×2 (12:57→20:59)
[2018-05-06] MEDS: Heparin 25,000 UNIT/500 ML D5W 25,000 UNIT/500 ML BAG IVC SCH (14:34)
[2018-05-06] MEDS: Ringers Solution, Lactated 1,000 ML IVC SCH ×2 (15:05→21:24)
[2018-05-06] MEDS: OXYCODONE Oral CONC 10 MG/0.5 ML ORAL.SYG SL PRN (21:40)
[2018-05-07] MEDS: Piperacillin/Tazobactam 3.375 GM in 0.9 % Sodium Chloride Mini Bag 100 ML IVPB SCH (03:50)
[2018-05-07 04:21] LABS: Basophils # 0.1 K/mcL (0.0-0.2); Basophils % 0.3 %; Eosinophils # 0.5 K/mcL (0.0-0.6); Eosinophils % 2.4 %; Hematocrit 31.9 % (37.5-50.1); Hemoglobin 9.9 g/dL (12.9-16.9); Lymphocytes # 3.2 K/mcL (0.6-4.6); Lymphocytes % 14.3 %; Mean Corpuscular Hemoglobin 24.6 pg (28.0-33.3); Mean Corpuscular Volume 79.4 fL (83.0-100.0); Mean Platelet Volume 11.1 fL (9.4-12.4); Monocytes # 2.5 K/mcL (0.0-1.3); Monocytes % 11.4 %; Neutrophils # 15.3 K/mcL (1.6-8.9); Platelet Count 374 K/mcL (140-400); Red Blood Count 4.02 M/mcL (4.19-5.50); Red Cell Distribution Width 15.9 % (11.5-14.5); Segmented Neutrophils % 69.6 %
[2018-05-07 04:45] LABS: BUN/Creatinine Ratio 8 (6-26); Blood Urea Nitrogen 5 mg/dL (6-20); Calcium 7.9 mg/dL (8.6-10.3); Carbon Dioxide 30 mEq/L (23-29); Chloride 105 mEq/L (98-107); Glucose 126 mg/dL (70-105); Osmolality,Calculated 287 (280-300); Potassium 3.7 mEq/L (3.5-5.1); Sodium 139 mEq/L (136-145); Vancomycin,Trough 33 mcg/mL (5-10); eGFR For Non-African Americans > 60 (> 60)
[2018-05-07] MEDS: *HR* Heparin 5,000 UNIT/ML VIAL IVP PRN (05:03)
[2018-05-07] MEDS: Ringers Solution, Lactated 1,000 ML IVC SCH ×2 (05:06→22:30)
[2018-05-07] MEDS: Insulin LISPRO 300 UNITS/3 ML VIAL SQ SCH ×4 (09:12→22:36)
[2018-05-07] MEDS: Insulin DETEMIR 100 UNIT/ML X5UNITS SQ SCH ×2 (09:15→22:40)
[2018-05-07] MEDS: Nystatin SUSP 5 ML UD.LIQ PO SCH ×4 (09:16→22:41)
[2018-05-07] MEDS: Gabapentin 400 MG CAPSULE PO SCH ×3 (09:16→22:41)
[2018-05-07] MEDS: Ascorbic Acid 500 MG TABLET PO SCH (09:16)
[2018-05-07] MEDS: Fenofibrate 54 MG TABLET PO SCH (09:16)
[2018-05-07] MEDS: Lactobacillus 1 EACH CAP.SPRINK PO SCH ×2 (09:16→22:41)
[2018-05-07] MEDS: Heparin 25,000 UNIT/500 ML D5W 25,000 UNIT/500 ML BAG IVC SCH (09:30)
[2018-05-07] MEDS: Sulfamethoxazole/Trimeth DS 1 EACH TABLET PO SCH ×2 (12:02→22:41)
--- NOTE | 2018-05-07 12:14 | Internal Med Progress Note ---
Hospitalist Progress Note - Encounter Date of Encounter: 05/07/18 Time of Encounter: 09:50 - Subjective Interval History: Patient is lying down in bed. Does have mid abdominal pain. Has not had a bowel movement. Denies any chest pain or fever nausea or vomiting. No cough. No significant shortness of breath. - Exam Vitals: Temp Pulse Resp BP Pulse Ox 98.1 F 83 18 93/59 94 05/06/18 20:46 05/07/18 08:08 05/07/18 05:25 05/07/18 08:08 05/07/18 08:08 Exam: General: Patient is alert, no acute distress, oriented x 3 Respiratory: Good respiratory effort. Normal breath sounds. No wheezing or crackles. Cardiovascular: Regular rate and rhythm. s1 and s2 normal systolic murmur present. No pedal edema Abdomen: Abdomen is soft, mild mid abdominal tenderness nontender. Bowel sounds are present Musculoskeletal: Status post right AKA and left BKA Skin: warm, dry, intact. Neuro: Alert oriented x 3 normal cranial nerves, no focal deficits - Assessment and Plan (1) Sepsis Current Visit: Yes Status: Acute Assessment and Plan: With gram-positive bacteremia. And infective endocarditis. Continue IV antibiotics. Follow infectious disease recommendations. Plan for IR to do liver and renal abscess drainage tomorrow. (2) Pyelonephritis Current Visit: Yes Status: Acute Assessment and Plan: Management with IV antibiotics. WBC count is 22 today. We will continue to monitor closely. (3) DKA (diabetic ketoacidoses) Current Visit: Yes Status: Resolved Assessment and Plan: Blood sugars are better controlled. Continue current insulin regimen (4) Hepatic lesion Current Visit: Yes Status: Acute Assessment and Plan: Possible abscess. Plan for drainage tomorrow (5) Elevated troponin Current Visit: Yes Status: Acute Assessment and Plan: From demand ischemia. No further cardiac workup planned at this time (6) Gram-positive bacteremia Current Visit: Yes Status: Acute Assessment and Plan: Continue IV antibiotics. (7) Pancreatitis Current Visit: Yes Status: Acute Assessment and Plan: Tolerating oral diet. Will place patient on laxatives (8) Peripheral vascular disease due to secondary diabetes Current Visit: Yes Status: Acute DVT Prophylaxis: Patient is on IV heparin. We will place him back on Xarelto after his procedure completed tomorrow. - Time Spent with Patient Total time spent is greater than 50% in coordination of care (as documented) at patient's floor/unit and/or counseling patient: Internal Medicine: Result - Labs CBC & Chem 7: 05/07/18 03:40 05/07/18 03:40 Labs: Short CBC 05/07/18 Range/Units 03:40 WBC 22.0 H (4.3-11.1) K/mcL Hgb 9.9 L (12.9-16.9) g/dL Hct 31.9 L (37.5-50.1) % Plt Count 374 (140-400) K/mcL Neutrophils # 15.3 H (1.6-8.9) K/mcL BMP 05/07/18 03:40 Sodium 139 Potassium 3.7 Chloride 105 Carbon Dioxide 30 H BUN 5 L Creatinine 0.62 L Glucose 126 H Calcium 7.9 L - ABG Interpretation ABG results: PT/INR, D-dimer PT 14.6 Seconds (9.4-12.1) H 05/05/18 15:04 Consult Discharge Plan - Plan Referrals: NONE,PCP [Primary Care Provider] - (1) Sepsis Qualifiers: Sepsis type: sepsis due to unspecified organism Qualified Code(s): A41.9 - Sepsis, unspecified organism (3) DKA (diabetic ketoacidoses) Qualifiers: Diabetes mellitus type: type 2 Diabetes mellitus complication detail: without coma Qualified Code(s): E11.10 - Type 2 diabetes mellitus with ketoacidosis without coma (7) Pancreatitis Qualifiers: Chronicity: acute Pancreatitis type: unspecified pancreatitis type Acute pancreatitis complication: unspecified Qualified Code(s): K85.90 - Acute pancreatitis without necrosis or infection, unspecified
[2018-05-07] MEDS: Ampicillin 2 GM in 0.9 % Sodium Chloride Mini Bag 100 ML IVPB SCH ×3 (12:55→20:02)
[2018-05-07] MEDS: cefTRIAXone 2,000 MG in Water for inj. (sterile) 20 ML 20 ML IVP SCH (16:53)
[2018-05-07] MEDS: OXYCODONE Oral CONC 10 MG/0.5 ML ORAL.SYG SL PRN (20:26)
[2018-05-08] MEDS: Ampicillin 2 GM in 0.9 % Sodium Chloride Mini Bag 100 ML IVPB SCH ×6 (00:07→20:54)
[2018-05-08] MEDS: Heparin 25,000 UNIT/500 ML D5W 25,000 UNIT/500 ML BAG IVC SCH ×2 (00:12→21:03)
[2018-05-08] MEDS: cefTRIAXone 2,000 MG in Water for inj. (sterile) 20 ML 20 ML IVP SCH ×2 (05:24→18:22)
[2018-05-08 06:00] LABS: Basophils # 0.1 K/mcL (0.0-0.2); Basophils % 0.4 %; Eosinophils # 0.7 K/mcL (0.0-0.6); Eosinophils % 3.4 %; Hematocrit 31.4 % (37.5-50.1); Hemoglobin 9.8 g/dL (12.9-16.9); Immature Granulocytes % 2.7 % (0-4); Lymphocytes # 3.6 K/mcL (0.6-4.6); Lymphocytes % 18.6 %; Mean Corpuscular HGB Conc 31.2 g/dL (31.6-35.5); Mean Corpuscular Hemoglobin 24.4 pg (28.0-33.3); Mean Corpuscular Volume 78.3 fL (83.0-100.0); Monocytes # 2.7 K/mcL (0.0-1.3); Monocytes % 14.1 %; Neutrophils # 11.8 K/mcL (1.6-8.9); Platelet Count 416 K/mcL (140-400); Red Blood Count 4.01 M/mcL (4.19-5.50); Red Cell Distribution Width 15.9 % (11.5-14.5); Segmented Neutrophils % 60.8 %
[2018-05-08] MEDS: Ringers Solution, Lactated 1,000 ML IVC SCH (06:09)
[2018-05-08 06:20] LABS: BUN/Creatinine Ratio 8 (6-26); Blood Urea Nitrogen 7 mg/dL (6-20); Carbon Dioxide 30 mEq/L (23-29); Chloride 104 mEq/L (98-107); Glucose 188 mg/dL (70-105); Osmolality,Calculated 289 (280-300); Potassium 4.2 mEq/L (3.5-5.1); Sodium 138 mEq/L (136-145); eGFR For Non-African Americans > 60 (> 60)
--- NOTE | 2018-05-08 09:12 | Infectious Disease Progress No ---
Date of Encounter: 05/08/18 Time of Encounter: 09:03 - Assessment and Plan (1) Sepsis Current Visit: Yes Status: Acute Sepsis criteria met on admission: Tachycardia, tachypnea, WBC 49.1 with 96% segmented neutrophils--> Meets sepsis criteria today with tachycardia, WBC 19.4, and SBP < 90 mmHg Afebrile since admission, Tmax 98.8 F on 05/03 Source: likely multifactorial from bacteremia due to endocarditis, pyelonephritis, and possible liver abscess DKA and pancreatitis also potential etiologies--DKA now resolved and lipase trending down Causative organism: Likely enterococcus faecalis and/or MRSA Leukocytosis improving WBCs 49.1, 30.2, 20, 19.5, 20.2, 22.7, 22, today 19.4 No bands on CBC differential Neutrophils 96%, 85%, 74.5%, 70.6%, 72.1%, 69.6%, today 60.2% Lactic acid: 1.3 Lipase: 404 --> 362 BUN 7, Cr 0.86 05/02 urine culture: MRSA with sensitivity to vancomycin 05/02 blood culture: enterococcus faecalis with sensitivity to vancomycin (Yeny/B gene not detected by PCR) 05/04 blood culture: no growth to date 05/02 CXR: No focal lung consolidations, suspicious pulmonary nodules, or pleural effusion 05/02 CT abdomen/pelvis: Heterogeneous areas of decreased perfusion to cortex left kidney, suggestive of acute pyelonephritis; possible perihepatic abscess or nonspecific lesion of hepatic parenchyma below right hemidiaphragm 05/03 MRI abdomen: 3.5 cm x 2.5 cm lesion corresponding with 05/02 CT finding and not seen on 01/04/18 imaging, possibly abscess, metastatic disease, or infarction; 3.3 cm x 2.1 cm cystic lesion upper pole left kidney with suspected blood products, may represent abscess or infarction; left renal edema, potentially pyelonephritis based on it's CT appearance; suspected acute pancreatitis; small bilateral pleural effusions and trace ascites. 05/03 Echocardiogram: no significant valvular dysfunction 05/05 BAILEY: Trileaflet aortic valve. Large mobile echodensity adherent to the Rt coronary cusp measuring 1.4 cm X 0.87 cm. Non-coronary cusp is thickened, can't exclude possible adherent vegetation . Zosyn 3.375 gm IV Q8H --> stopped 05/07/18 (received 7 days) Vancomycin 1 gm IV Q12H pharmacy dosing --> stopped 05/07/18 (received 7 days) Ampicillin 2 gm IV Q4H, day 2 Rocephin 2 gm IV Q12H, day 2 Bactrim 1 each PO BID, day 2 Nystatin suspension 5 mL PO QID, day 5 Meets sepsis criteria today with tachycardia, WBC 19.4, and SBP < [address] guided aspiration of Lt kidney abscess by IR today, fluid being sent for culture Recommendations: - Continue rocephin 2 gm IV Q12H through 06/15/18 (6 weeks) - Continue ampicillin 2 gm IV Q4H through 06/15/18 (6 weeks) - Continue Bactrim 1 each PO BID for MRSA in urine - Monitor fluid culture (Lt kidney abscess) for growth - Monitor 05/04 blood cultures for growth until report finalized - Monitor for signs of hepato- and nephrotoxicity, dose adjust antibiotics Qualifiers: Sepsis type: sepsis due to unspecified organism Qualified Code(s): A41.9 - Sepsis, unspecified organism (2) Endocarditis Current Visit: Yes Status: Acute Meets 2 major Moore criteria: BAILEY with vegetation and Enterococcus on 05/02/18 blood cultures First set negative blood cultures on 05/04/1805/05 BAILEY: Trileaflet aortic valve. Large mobile echodensity adherent to the Rt coronary cusp measuring 1.4 cm X 0.87 cm. Non-coronary cusp is thickened, can't exclude possible adherent vegetation Ampicillin 2 gm IV Q4H, day 2 Rocephin 2 gm IV Q12H, day 2 Recommendations: - Continue ampicillin 2 gm IV Q4H through 06/15/17 (6 weeks from first set negative blood cultures on 05/04/18) - Continue Rocephin 2 gm IV Q12H through 06/15/17 (6 weeks) Qualifiers: Endocarditis type: infective Infective endocarditis organism: bacterial Chronicity: unspecified Qualified Code(s): I33.0 - Acute and subacute infective endocarditis (3) Gram-positive bacteremia Current Visit: Yes Status: Acute Suspect this is related to endocarditis, but pyelonephritis and liver abscess may have been contributing 05/02 Blood cultures: enterococcus faecalis with sensitivity to vancomycin (Yeny/B gene not detected by PCR) 05/04 blood culture: no growth to date 05/05 BAILEY: Trileaflet aortic valve. Large mobile echodensity adherent to the Rt coronary cusp measuring 1.4 cm X 0.87 cm. Non-coronary cusp is thickened, can't exclude possible adherent vegetation. Recommendations as above (4) Pancreatitis Current Visit: Yes Status: Acute Qualifiers: Chronicity: acute Pancreatitis type: unspecified pancreatitis type Acute pancreatitis complication: unspecified Qualified Code(s): K85.90 - Acute pancreatitis without necrosis or infection, unspecified (5) Peripheral vascular disease due to secondary diabetes Current Visit: Yes Status: Acute (6) DKA (diabetic ketoacidoses) Current Visit: Yes Status: Resolved Qualifiers: Diabetes mellitus type: type 2 Diabetes mellitus complication detail: without coma Qualified Code(s): E11.10 - Type 2 diabetes mellitus with ketoacidosis without coma (7) Pyelonephritis Current Visit: Yes Status: Acute 05/02 urine culture: MRSA with sensitivity to vancomycin Supporting CT and MRI findings as above Lt renal abscess drained by IR on 05/08/18 with fluid sample sent for culture Recommendations as above (8) Hepatic lesion Current Visit: Yes Status: Acute As above (9) Elevated troponin Current Visit: Yes Status: Acute - Subjective Interval history: Seen and examined this morning at bedside. He is sitting up in bed watching TV, appears in no acute distress and says he's feeling fine. Nursing also at bedside to administering his morning meds. Denies fevers, chills, night sweats, chest pain, shortness of breath. Infect Dis PN-Objective Data - Labs CBC & Chem 7: 05/09/18 05:05 05/09/18 05:05 Labs: Laboratory Results - last 24 hr 05/06/18 05/06/18 05/07/18 16:19 20:42 07:53 WBC RBC Hgb Hct MCV MCH MCHC RDW Plt Count MPV Immature Gran % Seg Neutrophils % Lymphocytes % Monocytes % Eosinophils % Basophils % Neutrophils # Lymphocytes # Monocytes # Eosinophils # Basophils # Heparin Anti-Xa, Unfract Sodium Potassium Chloride Carbon Dioxide BUN Creatinine Est GFR ( Amer) Est GFR (Non-Af Amer) BUN/Creatinine Ratio Glucose POC Glucose 161 H 154 H 96 Calculated Osmolality Calcium Vancomycin Trough 05/07/18 05/07/18 05/07/18 11:06 11:56 11:57 WBC RBC Hgb Hct MCV MCH MCHC RDW Plt Count MPV Immature Gran % Seg Neutrophils % Lymphocytes % Monocytes % Eosinophils % Basophils % Neutrophils # Lymphocytes # Monocytes # Eosinophils # Basophils # Heparin Anti-Xa, Unfract 0.39 Sodium Potassium Chloride Carbon Dioxide BUN Creatinine Est GFR ( Amer) Est GFR (Non-Af Amer) BUN/Creatinine Ratio Glucose POC Glucose 88 Calculated Osmolality Calcium Vancomycin Trough 20 H 05/07/18 05/07/18 05/07/18 16:02 17:56 22:33 WBC RBC Hgb Hct MCV MCH MCHC RDW Plt Count MPV Immature Gran % Seg Neutrophils % Lymphocytes % Monocytes % Eosinophils % Basophils % Neutrophils # Lymphocytes # Monocytes # Eosinophils # Basophils # Heparin Anti-Xa, Unfract 0.36 Sodium Potassium Chloride Carbon Dioxide BUN Creatinine Est GFR ( Amer) Est GFR (Non-Af Amer) BUN/Creatinine Ratio Glucose POC Glucose 117 H 110 H Calculated Osmolality Calcium Vancomycin Trough 05/08/18 05/08/18 05/08/18 05:35 05:35 07:13 WBC 19.4 H RBC 4.01 L Hgb 9.8 L Hct 31.4 L MCV 78.3 L MCH 24.4 L MCHC 31.2 L RDW 15.9 H Plt Count 416 H MPV 11.0 Immature Gran % 2.7 Seg Neutrophils % 60.8 Lymphocytes % 18.6 Monocytes % 14.1 Eosinophils % 3.4 Basophils % 0.4 Neutrophils # 11.8 H Lymphocytes # 3.6 Monocytes # 2.7 H Eosinophils # 0.7 H Basophils # 0.1 Heparin Anti-Xa, Unfract Sodium 138 Potassium 4.2 Chloride 104 Carbon Dioxide 30 H BUN 7 Creatinine 0.86 Est GFR ( Amer) > 60 Est GFR (Non-Af Amer) > 60 BUN/Creatinine Ratio 8 Glucose 188 H POC Glucose 158 H Calculated Osmolality 289 Calcium 8.0 L Vancomycin Trough Cultures: Cultures 05/02/18 11:29 Urine Culture - Final Urine,Clean Catch Methicillin Resistant S.aureus 05/02/18 15:45 Blood Culture - Final Peripheral Venipuncture Enterococcus faecalis 05/02/18 11:07 Blood Culture - Final Peripheral Venipuncture Enterococcus faecalis 05/04/18 09:29 Blood Culture - Preliminary Peripheral Venipuncture Culture is incubating and being continuously monitored for growth. Final report to follow. 05/04/18 09:29 Blood Culture - Preliminary Peripheral Venipuncture Culture is incubating and being continuously mon itored for growth. Final report to follow. Serology 05/02/18 05/02/18 Range/Units 11:29 11:07 Urine Color Yellow (Yellow) Urine Clarity Clear (Clear) Urine pH 5.5 (5.0-8.0) pH Units Ur Specific [place] 1.029 H (1.010-1.025) Urine Protein 30 H (Neg-Trace) mg/dL Urine Glucose (UA) >=1000 H (Normal) mg/dL Urine Ketones >=160 H (Negative) mg/dL Urine Blood Small H (Negative) Urine Nitrite Negative (Negative) Urine Bilirubin Negative (Negative) Urine Urobilinogen Normal (Normal) mg/dL Ur Leukocyte Esterase Small H (Negative) Urine Microscopic RBC 0-3 (0-3) per hpf Urine Microscopic WBC 50-100 H (0-3) per hpf Ur Squamous Epith Cells Few (None-Few) per lpf Urine Bacteria None Seen (None-Few) per hpf Hyaline Casts Few (None-Few) per lpf Ur Culture Indicated? YES A (NO) A. baumannii (PCR) Not Detected (Not Detect) Chelle albicans (PCR) Not Detected (Not Detect) C. glabrata (PCR) Not Detected (Not Detect) C. krusei (PCR) Not Detected (Not Detect) C. parapsilosis (PCR) Not Detected (Not Detect) C. tropicalis (PCR) Not Detected (Not Detect) Enterobacteriac sp PCR Not Detected (Not Detect) E. cloacae complex PCR Not Detected (Not Detect) Enterococcus sp PCR DETECTED A (Not Detect) E. coli (PCR) Not Detected (Not Detect) H. influenzae (PCR) Not Detected (Not Detect) Klebsiella oxytoca PCR Not Detected (Not Detect) Klebsiella pneumoniae Not Detected (Not Detect) List. monocytogenes PCR Not Detected (Not Detect) N. meningitidis (PCR) Not Detected (Not Detect) Proteus species (PCR) Not Detected (Not Detect) Serratia marcescens PCR Not Detected (Not Detect) Staphylococcus sp PCR Not Detected (Not Detect) Staph aureus (PCR) Not Detected (Not Detect) mecA-Methicil Res Gene N/A (Not Detect) Streptococcus sp PCR Not Detected (Not Detect) Group A Strep DNA Not Detected (Not Detect) Group B Strep (PCR) Not Detected (Not Detect) Strep pneumoniae (PCR) Not Detected (Not Detect) P. aeruginosa (PCR) Not Detected (Not Detect) Yeny/B-Vanco Res Genes Not Detected (Not Detect) KPC (blaKPC) Detect PCR N/A (Not Detect) Exam - Constitutional Vitals: Temp Pulse Resp BP Pulse Ox 98.7 F 95 18 83/53 94 05/08/18 05:07 05/08/18 07:16 05/08/18 05:07 05/08/18 07:16 05/08/18 07:16 Exam: General: Vital signs noted, No acute distress, resting in bed, appears nontoxic HEENT: head normocephalic/atraumatic, EOMI, PERRL, sclera anicteric, moist mucus membranes, edentulous Neck: Supple Cardio: RRR, no murmurs, +S1/S2 Pulm: CTAB, symmetric chest rise, Normal respiratory effort. Abdomen: soft, tender to palpation, normal bowel sounds present, no rigidity or distention Extremities: Rt AKA, Lt BKA, no cyanosis or clubbing Neuro: AAOx3, no focal deficit, no speech deficit, CN II-XII grossly intact, moves extremities spontaneously Skin: clean, dry, intact Consult Discharge Plan - Plan Referrals: NONE,PCP [Primary Care Provider] - - Attending Attestation I examined this patient and my medical decision-making was reviewed with the Resident Physician. I agree with the documented findings, disposition and treatment plan as described except to the extent set forth below.
[2018-05-08] MEDS: Gabapentin 400 MG CAPSULE PO SCH ×3 (09:32→20:54)
[2018-05-08] MEDS: Lactobacillus 1 EACH CAP.SPRINK PO SCH ×2 (09:33→20:53)
[2018-05-08] MEDS: Ascorbic Acid 500 MG TABLET PO SCH (09:33)
[2018-05-08] MEDS: Sulfamethoxazole/Trimeth DS 1 EACH TABLET PO SCH ×2 (09:33→20:54)
[2018-05-08] MEDS: Fenofibrate 54 MG TABLET PO SCH (09:34)
[2018-05-08] MEDS: Nystatin SUSP 5 ML UD.LIQ PO SCH ×4 (09:34→20:53)
[2018-05-08] MEDS: Insulin LISPRO 300 UNITS/3 ML VIAL SQ SCH ×4 (09:35→20:55)
[2018-05-08] MEDS: Insulin DETEMIR 100 UNIT/ML X5UNITS SQ SCH ×2 (09:38→20:54)
[2018-05-08] MEDS ORDERED: Isovue-370 500 ML INFUS..BTL IV ONE (10:00)
[2018-05-08] MEDS ORDERED: 0.9 % Sodium Chloride 500 ML ONE (12:46)
[2018-05-08] MEDS ORDERED: *HR* FentaNYL (PF) 100 MCG/2 ML VIAL IVP ONE (13:01)
[2018-05-08] MEDS ORDERED: *HR* FentaNYL (PF) 100 MCG/2 ML VIAL ONE (13:04)
--- NOTE | 2018-05-08 13:18 | IR Procedure Note ---
Date of procedure: 05/08/18 Consent Obtained: Verbal consent Timeout: Correct patient and procedure verified, Correct site verified, Time out performed, Skin prep completed Local anesthetic: Lidocaine 1% Indications: Liver and Renal masses Procedure Performed: CT guided left renal aspiration Was there an account assistant present: No Site/Technique: CT guided aspiration of left kidney Results/Findings: 2 cc fluid aspirated from left kidney. Small fluid collection at liver dome Estimated blood loss (cc): 2 Complications: None; Tolerated procedure well Post Procedure Treatment Plan: Continue inpatient care. Cultures pending. Specimen: 2 cc fluid aspirated from left kidney
--- NOTE | 2018-05-08 13:19 | Internal Med Progress Note ---
<Mukund Del Valle U - Last Filed: 05/08/18 15:31> Hospitalist Progress Note - Encounter Date of Encounter: 05/08/18 Time of Encounter: 10:00 - Subjective Interval History: Pt is seen at bedside without any acute complaints. The patient denies chest pain, nausea, vomiting, or SOB. He does complain of mild abdominal pain in left upper quadrant. - Exam Vitals: Temp Pulse Resp BP Pulse Ox 98.7 F 100 18 91/73 93 05/08/18 05:07 05/08/18 11:47 05/08/18 05:07 05/08/18 11:47 05/08/18 11:47 Exam: General: Patient is alert, no acute distress, oriented x 3 Respiratory: Good respiratory effort. Normal breath sounds. No wheezing or crackles. Cardiovascular: Regular rate and rhythm. s1 and s2 normal systolic murmur present. Abdomen: Abdomen is soft, mild mid abdominal tenderness nontender. Bowel sounds are present Musculoskeletal: Status post right AKA and left BKA Skin: warm, dry, intact. Extremities: left below knee amputation, right above knee amputation with no signs of erythema, infection, or rash Neuro: Alert oriented x 3 normal cranial nerves, no focal deficits - Assessment and Plan (1) Sepsis Current Visit: Yes Status: Acute Assessment and Plan: With gram-positive bacteremia, &infective endocarditis. Plan: - Continue IV antibiotics. - Follow infectious disease recommendations. - IR performed CT guided right renal hematoma aspiration. - IR coud not perform drainage of liver abscess due to it being in close p roximity to the diaphragm. (2) Pyelonephritis Current Visit: Yes Status: Acute Assessment and Plan: WBC count is 19.4 today. Plan: - Management with IV antibiotics. - We will continue to monitor closely. (3) DKA (diabetic ketoacidoses) Current Visit: Yes Status: Resolved Assessment and Plan: Blood sugars are better controlled. Plan: - Continue current insulin regimen (4) Hepatic lesion Current Visit: Yes Status: Acute Assessment and Plan: Possible abscess on liver. Plan: - IR could not perform aspiration of liver abscess due to close proximity to diaphragm. (5) Elevated troponin Current Visit: Yes Status: Acute Assessment and Plan: From demand ischemia. No further cardiac workup planned at this time (6) Gram-positive bacteremia Current Visit: Yes Status: Acute Assessment and Plan: Continue IV antibiotics. (7) Pancreatitis Current Visit: Yes Status: Acute Assessment and Plan: Tolerating oral diet. Will place patient on laxatives (8) Peripheral vascular disease due to secondary diabetes Current Visit: Yes Status: Acute DVT Prophylaxis: Patient is on IV heparin. We will place him back on Xarelto after his procedure completed today - Time Spent with Patient Total time spent is greater than 50% in coordination of care (as documented) at patient's floor/unit and/or counseling patient: Plan of Care Discussed with: patient Internal Medicine: Result - Labs CBC & Chem 7: 05/08/18 05:35 05/08/18 05:35 Labs: Short CBC 05/08/18 Range/Units 05:35 WBC 19.4 H (4.3-11.1) K/mcL Hgb 9.8 L (12.9-16.9) g/dL Hct 31.4 L (37.5-50.1) % Plt Count 416 H (140-400) K/mcL Neutrophils # 11.8 H (1.6-8.9) K/mcL BMP 05/08/18 05:35 Sodium 138 Potassium 4.2 Chloride 104 Carbon Dioxide 30 H BUN 7 Creatinine 0.86 Glucose 188 H Calcium 8.0 L - ABG Interpretation ABG results: PT/INR, D-dimer PT 14.6 Seconds (9.4-12.1) H 05/05/18 15:04 Consult Discharge Plan - Plan <Anastacio Lau - Last Filed: 05/08/18 16:26> Hospitalist Progress Note - Encounter Date of Encounter: 05/08/18 - Subjective Interval History: The history, physical exam, and medical decision making was performed by the medical student either while I was physically present and actively involved or I personally re-performed the exam and medical decision making. I have verified the accuracy of the medical student's documentation with regards to the history, physical exam findings, and medical decision making. - Exam Vitals: Temp Pulse Resp BP Pulse Ox 99.1 F 99 14 102/63 93 05/08/18 15:21 05/08/18 15:21 05/08/18 15:21 05/08/18 15:21 05/08/18 15:21 - Time Spent with Patient Total time spent is greater than 50% in coordination of care (as documented) at patient's floor/unit and/or counseling patient: Internal Medicine: Result - Labs CBC & Chem 7: 05/08/18 05:35 05/08/18 05:35 Labs: Short CBC 05/08/18 Range/Units 05:35 WBC 19.4 H (4.3-11.1) K/mcL Hgb 9.8 L (12.9-16.9) g/dL Hct 31.4 L (37.5-50.1) % Plt Count 416 H (140-400) K/mcL Neutrophils # 11.8 H (1.6-8.9) K/mcL BMP 05/08/18 05:35 Sodium 138 Potassium 4.2 Chloride 104 Carbon Dioxide 30 H BUN 7 Creatinine 0.86 Glucose 188 H Calcium 8.0 L - ABG Interpretation ABG results: PT/INR, D-dimer PT 14.6 Seconds (9.4-12.1) H 05/05/18 15:04 - Impressions Impressions Renal CT 05/08/18 00:00 IMPRESSION: CT-guided aspiration of a small fluid collection in the cortex of the left kidney. No immediate complications. Pathology is pending. D/ / Oj Kendrick MD / Oj Kendrick MD Interpreting Provider: Oj Kendrick MD Abdomen CT 05/08/18 10:00 IMPRESSION: 1. Heterogeneous enhancement of the left kidney, which is again concerning for sequelae of pyelonephritis or renal infarcts, especially as the patient has a history of an infective endocarditis. There are small areas of developing either renal abscess or necrosis. The plan is for CT-guided aspiration today. 2. No significant change in size of a 2.3 cm fluid collection in the hepatic dome, with surrounding hyperemia. Findings are concerning for a small hepatic abscess. This lesion is too high in the liver and small in size for percutaneous needle aspiration/drainage at this time. Continued antibiotic therapy and CT follow-up is recommended. 3. Small bilateral pleural effusions with overlying atelectasis and/or pneumonia. D/ / 05/08/2018 15:22:55 Oj Kendrick MD / mandy Interpreting Provider: Oj Kendrick MD <MagdaleneIvonnecamilo - Last Filed: 05/08/18 17:23> Hospitalist Progress Note - Encounter Date of Encounter: 05/08/18 Time of Encounter: 09:40 - Exam Vitals: Temp Pulse Resp BP Pulse Ox 99.1 F 99 14 102/63 93 05/08/18 15:21 05/08/18 15:21 05/08/18 15:21 05/08/18 15:21 05/08/18 15:21 - Assessment and Plan (1) DKA (diabetic ketoacidoses) Current Visit: Yes Status: Resolved (2) Pyelonephritis Current Visit: Yes Status: Acute (3) Hepatic lesion Current Visit: Yes Status: Acute (4) Elevated troponin Current Visit: Yes Status: Acute (5) Sepsis Current Visit: Yes Status: Acute (6) Gram-positive bacteremia Current Visit: Yes Status: Acute (7) Pancreatitis Current Visit: Yes Status: Acute (8) Peripheral vascular disease due to secondary diabetes Current Visit: Yes Status: Acute (9) Endocarditis Current Visit: Yes Status: Acute - Time Spent with Patient Total time spent is greater than 50% in coordination of care (as documented) at patient's floor/unit and/or counseling patient: Internal Medicine: Result - Labs CBC & Chem 7: 05/08/18 05:35 05/08/18 05:35 Labs: Short CBC 05/08/18 Range/Units 05:35 WBC 19.4 H (4.3-11.1) K/mcL Hgb 9.8 L (12.9-16.9) g/dL Hct 31.4 L (37.5-50.1) % Plt Count 416 H (140-400) K/mcL Neutrophils # 11.8 H (1.6-8.9) K/mcL BMP 05/08/18 05:35 Sodium 138 Potassium 4.2 Chloride 104 Carbon Dioxide 30 H BUN 7 Creatinine 0.86 Glucose 188 H Calcium 8.0 L - ABG Interpretation ABG results: PT/INR, D-dimer PT 14.6 Seconds (9.4-12.1) H 05/05/18 15:04 - Impressions Impressions Renal CT 05/08/18 00:00 IMPRESSION: CT-guided aspiration of a small fluid collection in the cortex of the left kidney. No immediate complications. Pathology is pending. D/ / Oj Kendrick MD / Oj Kendrick MD Interpreting Provider: Oj Kendrick MD Abdomen CT 05/08/18 10:00 IMPRESSION: 1. Heterogeneous enhancement of the left kidney, which is again concerning for sequelae of pyelonephritis or renal infarcts, especially as the patient has a history of an infective endocarditis. There are small areas of developing either renal abscess or necrosis. The plan is for CT-guided aspiration today. 2. No significant change in size of a 2.3 cm fluid collection in the hepatic dome, with surrounding hyperemia. Findings are concerning for a small hepatic abscess. This lesion is too high in the liver and small in size for percutaneous needle aspiration/drainage at this time. Continued antibiotic therapy and CT follow-up is recommended. 3. Small bilateral pleural effusions with overlying atelectasis and/or pneumonia. D/ / 05/08/2018 15:22:55 Oj Kendrick MD / mandy Interpreting Provider: Oj Kendrick MD - Attending Attestation I saw evaluated and examined this patient and my medical decision-making was reviewed with the Resident Physician, Anastacio Lau. I agree with the documented findings, disposition and treatment plan as described except to any changes set forth below. We independently had [id number] contact with the patient. When I evaluated the patient, he was being evaluated by speech therapy. Did not have any trouble swallowing his pills. He denies any chest pain or palpitations. Abdominal pain is improving. No fevers reported overnight. On exam, patient is awake and alert. Cooperative to examination. S1 and S2 normal. Systolic murmur audible. Abdomen is soft, distended today. Patient is status post right BKA and left BKA. Sepsis: Due to endocarditis and pyelonephritis. Continue management with IV antibiotics per infectious disease recommendations. Infective endocarditis involving the aortic valve: Blood cultures initially positive for enterococcus faecalis. Infectious disease following. Repeat cultures have been negative. Attempted transferred to [place] but they recommended 6 weeks of IV antibiotics initially. Patient is receiving ampicillin and ceftriaxone. Urine culture positive for MRSA and patient is on Bactrim DS for that. Liver and kidney abscess: Patient underwent I&D of left kidney abscess today. Liver abscess was not aspirated due to proximity to the diaphragm. Diabetes mellitus type 2: Patient initially presented with DKA. It has resolved and patient's blood sugars are much better controlled currently. Acute pancreatitis: Patient is status post prior cholecystectomy. Abdominal pain has improved. Patient is tolerating diet well. History of peripheral vascular disease and DVT: patient on anticoagulation with Xarelto. This was held for incision and drainage. He was started on IV heparin in the interim. We will resume Xarelto tomorrow. <Mukund Del Valle - Last Filed: 05/08/18 15:31> (1) Sepsis Qualifiers: Sepsis type: sepsis due to unspecified organism Qualified Code(s): A41.9 - Sepsis, unspecified organism (3) DKA (diabetic ketoacidoses) Qualifiers: Diabetes mellitus type: type 2 Diabetes mellitus complication detail: without coma Qualified Code(s): E11.10 - Type 2 diabetes mellitus with ketoacidosis without coma (7) Pancreatitis Qualifiers: Chronicity: acute Pancreatitis type: unspecified pancreatitis type Acute pancreatitis complication: unspecified Qualified Code(s): K85.90 - Acute pancreatitis without necrosis or infection, unspecified <Armando Del Castillo - Last Filed: 05/08/18 17:23> (1) DKA (diabetic ketoacidoses) Qualifiers: Diabetes mellitus type: type 2 Diabetes mellitus complication detail: without coma Qualified Code(s): E11.10 - Type 2 diabetes mellitus with ketoacidosis without coma (5) Sepsis Qualifiers: Sepsis type: sepsis due to unspecified organism Qualified Code(s): A41.9 - Sepsis, unspecified organism (7) Pancreatitis Qualifiers: Chronicity: acute Pancreatitis type: unspecified pancreatitis type Acute pancreatitis complication: unspecified Qualified Code(s): K85.90 - Acute pancreatitis without necrosis or infection, unspecified (9) Endocarditis Qualifiers: Endocarditis type: infective Infective endocarditis organism: bacterial Chronicity: unspecified Qualified Code(s): I33.0 - Acute and subacute infective endocarditis
[2018-05-08] MEDS: *HR* Heparin 5,000 UNIT/ML VIAL IVP PRN (19:29)
[2018-05-09] MEDS: Ringers Solution, Lactated 1,000 ML IVC SCH (00:28)
[2018-05-09] MEDS: Ampicillin 2 GM in 0.9 % Sodium Chloride Mini Bag 100 ML IVPB SCH ×6 (00:28→20:46)
[2018-05-09] MEDS: *HR* Heparin 5,000 UNIT/ML VIAL IVP PRN ×2 (02:47→09:21)
[2018-05-09 05:26] LABS: Basophils # 0.1 K/mcL (0.0-0.2); Basophils % 0.4 %; Eosinophils # 0.7 K/mcL (0.0-0.6); Eosinophils % 3.6 %; Hematocrit 31.1 % (37.5-50.1); Hemoglobin 9.6 g/dL (12.9-16.9); Immature Granulocytes % 2.4 % (0-4); Lymphocytes # 2.9 K/mcL (0.6-4.6); Lymphocytes % 14.3 %; Mean Corpuscular HGB Conc 30.9 g/dL (31.6-35.5); Mean Corpuscular Hemoglobin 24.1 pg (28.0-33.3); Mean Corpuscular Volume 77.9 fL (83.0-100.0); Mean Platelet Volume 10.7 fL (9.4-12.4); Monocytes # 2.7 K/mcL (0.0-1.3); Monocytes % 13.5 %; Neutrophils # 13.2 K/mcL (1.6-8.9); Platelet Count 452 K/mcL (140-400); Red Blood Count 3.99 M/mcL (4.19-5.50); Red Cell Distribution Width 16.1 % (11.5-14.5); Segmented Neutrophils % 65.8 %
[2018-05-09 05:42] LABS: BUN/Creatinine Ratio 8 (6-26); Blood Urea Nitrogen 8 mg/dL (6-20); Calcium 7.9 mg/dL (8.6-10.3); Carbon Dioxide 27 mEq/L (23-29); Chloride 101 mEq/L (98-107); Glucose 298 mg/dL (70-105); Osmolality,Calculated 289 (280-300); Potassium 4.5 mEq/L (3.5-5.1); Sodium 135 mEq/L (136-145); eGFR For Non-African Americans > 60 (> 60)
[2018-05-09] MEDS: cefTRIAXone 2,000 MG in Water for inj. (sterile) 20 ML 20 ML IVP SCH ×2 (05:52→18:13)
[2018-05-09] MEDS: Heparin 25,000 UNIT/500 ML D5W 25,000 UNIT/500 ML BAG IVC SCH (08:57)
[2018-05-09] MEDS: Sulfamethoxazole/Trimeth DS 1 EACH TABLET PO SCH ×2 (09:03→20:45)
[2018-05-09] MEDS: Lactobacillus 1 EACH CAP.SPRINK PO SCH ×2 (09:03→20:45)
[2018-05-09] MEDS: Fenofibrate 54 MG TABLET PO SCH (09:04)
[2018-05-09] MEDS: Gabapentin 400 MG CAPSULE PO SCH ×3 (09:05→20:45)
[2018-05-09] MEDS: Insulin LISPRO 300 UNITS/3 ML VIAL SQ SCH ×6 (09:05→22:41)
[2018-05-09] MEDS: Nystatin SUSP 5 ML UD.LIQ PO SCH ×4 (09:05→20:45)
[2018-05-09] MEDS: Ascorbic Acid 500 MG TABLET PO SCH (09:05)
[2018-05-09] MEDS: Insulin DETEMIR 100 UNIT/ML X5UNITS SQ SCH ×2 (09:07→23:06)
--- NOTE | 2018-05-09 09:51 | Infectious Disease Progress No ---
Date of Encounter: 05/09/18 Time of Encounter: 09:00 - Assessment and Plan (1) Sepsis Current Visit: Yes Status: Acute Sepsis criteria met on admission: Tachycardia, tachypnea, WBC 49.1 with 96% segmented neutrophils Technically meets sepsis criteria today with HR > 90 and WBC > 12 Afebrile since admission, Tmax 98.8 F on 05/03 Source: likely multifactorial from bacteremia due to endocarditis, pyelonephritis, and possible liver abscess DKA and pancreatitis also potential etiologies--DKA now resolved and lipase trending down Causative organism: Likely enterococcus faecalis and/or MRSA Leukocytosis improving WBCs 49.1, 30.2, 20...22, 19.4, today 20 No bands on CBC differential Neutrophils 96%, 85.2%, 74.5%...69.6%, 60.8%, today 65.8% Lactic acid: 1.3 Lipase: 404 --> 362 BUN 8, Cr 0.96 05/02 urine culture: MRSA with sensitivity to vancomycin 05/02 blood culture: enterococcus faecalis with sensitivity to vancomycin (Yeny/B gene not detected by PCR) 05/04 blood culture: no growth to date 05/08 body fluid culture (Lt kidney): no growth 05/02 CXR: No focal lung consolidations, suspicious pulmonary nodules, or pleural effusion 05/02 CT abdomen/pelvis: Heterogeneous areas of decreased perfusion to cortex left kidney, suggestive of acute pyelonephritis; possible perihepatic abscess or nonspecific lesion of hepatic parenchyma below right hemidiaphragm 05/03 MRI abdomen: 3.5 cm x 2.5 cm lesion corresponding with 05/02 CT finding and not seen on 01/04/18 imaging, possibly abscess, metastatic disease, or infarction; 3.3 cm x 2.1 cm cystic lesion upper pole left kidney with suspected blood products, may represent abscess or infarction; left renal edema, potentially pyelonephritis based on it's CT appearance; suspected acute conner creatitis; small bilateral pleural effusions and trace ascites. 05/03 Echocardiogram: no significant valvular dysfunction 05/05 BAILEY: Trileaflet aortic valve. Large mobile echodensity adherent to the Rt coronary cusp measuring 1.4 cm X 0.87 cm. Non-coronary cusp is thickened, can't exclude possible adherent vegetation . Zosyn 3.375 gm IV Q8H --> stopped 05/07/18 (received 7 days) Vancomycin 1 gm IV Q12H pharmacy dosing --> stopped 05/07/18 (received 7 days) Ampicillin 2 gm IV Q4H, day 3 Rocephin 2 gm IV Q12H, day 3 Bactrim 1 each PO BID, day 3 Nystatin suspension 5 mL PO QID, day 6 Technically meets sepsis criteria with HR > 90 and WBC > 12. He is afebrile and hemodynamically stable. IR performed CT guided aspiration of Lt kidney abscess yesterday; couldn't sample hepatic lesion due to it's proximity to the diaphragm and small size. Recommendations: - Continue rocephin 2 gm IV Q12H through 06/15/18 (6 weeks) - Continue ampicillin 2 gm IV Q4H through 06/15/18 (6 weeks) - Continue Bactrim 1 each PO BID for MRSA in urine - Monitor fluid culture (Lt kidney abscess) for growth - Monitor 05/04 blood cultures for growth until report finalized - Monitor for signs of hepato- and nephrotoxicity, dose adjust antibiotics Qualifiers: Qualified Code(s): A41.9 - Sepsis, unspecified organism (2) Endocarditis Current Visit: Yes Status: Acute Meets 2 major Moore criteria: BAILEY with vegetation and Enterococcus on 05/02/18 blood cultures First set negative blood cultures on 05/04/1805/05 BAILEY: Trileaflet aortic valve. Large mobile echodensity adherent to the Rt coronary cusp measuring 1.4 cm X 0.87 cm. Non-coronary cusp is thickened, can't exclude possible adherent vegetation Ampicillin 2 gm IV Q4H, day 3 Rocephin 2 gm IV Q12H, day 3 Recommendations: - Continue ampicillin 2 gm IV Q4H through 06/15/17 (6 weeks from first set negative blood cultures on 05/04/18) - Continue Rocephin 2 gm IV Q12H through 06/15/17 (6 weeks) Qualifiers: Qualified Code(s): I33.0 - Acute and subacute infective endocarditis (3) Gram-positive bacteremia Current Visit: Yes Status: Acute Suspect this is related to endocarditis, but pyelonephritis and liver abscess may have been contributing 05/02 Blood cultures: enterococcus faecalis with sensitivity to vancomycin (Yeny/B gene not detected by PCR) 05/04 blood culture: no growth to date Recommendations as above (4) Pancreatitis Current Visit: Yes Status: Acute Qualifiers: Qualified Code(s): K85.90 - Acute pancreatitis without necrosis or infection, unspecified (5) Peripheral vascular disease due to secondary diabetes Current Visit: Yes Status: Acute (6) DKA (diabetic ketoacidoses) Current Visit: Yes Status: Resolved Qualifiers: Qualified Code(s): E11.10 - Type 2 diabetes mellitus with ketoacidosis without coma (7) Pyelonephritis Current Visit: Yes Status: Acute 05/02 urine culture: MRSA with sensitivity to vancomycin Supporting CT and MRI findings as above Lt renal abscess drained by IR on 05/08/18 with fluid sample sent for culture Recommendations as above (8) Hepatic lesion Current Visit: Yes Status: Acute As above (9) Elevated troponin Current Visit: Yes Status: Acute - Subjective Interval history: Seen and examined this morning at bedside. He is eating cookies in bed, watching TV, and appears comfortable. He is in no acute distress. Says he was doing fine until another doctor came in and pushed too hard on his abdomen, other than that he isn't having any pain. Denies fevers, chills, night sweats, chest pain, shortness of breath. Infect Dis PN-Objective Data - Labs CBC & Chem 7: 05/10/18 04:00 05/10/18 04:00 Labs: Laboratory Results - last 24 hr 05/08/18 05/08/18 05/08/18 11:41 17:54 20:15 WBC RBC Hgb Hct MCV MCH MCHC RDW Plt Count MPV Immature Gran % Seg Neutrophils % Lymphocytes % Monocytes % Eosinophils % Basophils % Neutrophils # Lymphocytes # Monocytes # Eosinophils # Basophils # Heparin Anti-Xa, Unfract 0.11 L Sodium Potassium Chloride Carbon Dioxide BUN Creatinine Est GFR ( Amer) Est GFR (Non-Af Amer) BUN/Creatinine Ratio Glucose POC Glucose 114 H 168 H Calculated Osmolality Calcium 05/09/18 05/09/18 05/09/18 01:50 05:05 05:05 WBC 20.0 H RBC 3.99 L Hgb 9.6 L Hct 31.1 L MCV 77.9 L MCH 24.1 L MCHC 30.9 L RDW 16.1 H Plt Count 452 H MPV 10.7 Immature Gran % 2.4 Seg Neutrophils % 65.8 Lymphocytes % 14.3 Monocytes % 13.5 Eosinophils % 3.6 Basophils % 0.4 Neutrophils # 13.2 H Lymphocytes # 2.9 Monocytes # 2.7 H Eosinophils # 0.7 H Basophils # 0.1 Heparin Anti-Xa, Unfract 0.21 L Sodium 135 L Potassium 4.5 Chloride 101 Carbon Dioxide 27 BUN 8 Creatinine 0.96 Est GFR ( Amer) > 60 Est GFR (Non-Af Amer) > 60 BUN/Creatinine Ratio 8 Glucose 298 H POC Glucose Calculated Osmolality 289 Calcium 7.9 L 05/09/18 08:36 WBC RBC Hgb Hct MCV MCH MCHC RDW Plt Count MPV Immature Gran % Seg Neutrophils % Lymphocytes % Monocytes % Eosinophils % Basophils % Neutrophils # Lymphocytes # Monocytes # Eosinophils # Basophils # Heparin Anti-Xa, Unfract 0.09 L Sodium Potassium Chloride Carbon Dioxide BUN Creatinine Est GFR ( Amer) Est GFR (Non-Af Amer) BUN/Creatinine Ratio Glucose POC Glucose Calculated Osmolality Calcium Cultures: Cultures 05/08/18 13:13 Body Fluid Culture - Preliminary Other-Specify in Comments 05/02/18 11:29 Urine Culture - Final Urine,Clean Catch Methicillin Resistant S.aureus 05/02/18 15:45 Blood Culture - Final Peripheral Venipuncture Enterococcus faecalis 05/02/18 11:07 Blood Culture - Final Peripheral Venipuncture Enterococcus faecalis 05/04/18 09:29 Blood Culture - Preliminary Peripheral Venipuncture Culture is incubating and being continuously monitored for growth. Final report to follow. 05/04/18 09:29 Blood Culture - Preliminary Peripheral Venipuncture Culture is incubating and being continuously monitored for growth. Final report to follow. Serology 05/02/18 05/02/18 Range/Units 11:29 11:07 Urine Color Yellow (Yellow) Urine Clarity Clear (Clear) Urine pH 5.5 (5.0-8.0) pH Units Ur Specific [place] 1.029 H (1.010-1.025) Urine Protein 30 H (Neg-Trace) mg/dL Urine Glucose (UA) >=1000 H (Normal) mg/dL Urine Ketones >=160 H (Negative) mg/dL Urine Blood Small H (Negative) Urine Nitrite Negative (Negative) Urine Bilirubin Negative (Negative) Urine Urobilinogen Normal (Normal) mg/dL Ur Leukocyte Esterase Small H (Negative) Urine Microscopic RBC 0-3 (0-3) per hpf Urine Microscopic WBC 50-100 H (0-3) per hpf Ur Squamous Epith Cells Few (None-Few) per lpf Urine Bacteria None Seen (None-Few) per hpf Hyaline Casts Few (None-Few) per lpf Ur Culture Indicated? YES A (NO) A. baumannii (PCR) Not Detected (Not Detect) Chelle albicans (PCR) Not Detected (Not Detect) C. glabrata (PCR) Not Detected (Not Detect) C. krusei (PCR) Not Detected (Not Detect) C. parapsilosis (PCR) Not Detected (Not Detect) C. tropicalis (PCR) Not Detected (Not Detect) Enterobacteriac sp PCR Not Detected (Not Detect) E. cloacae complex PCR Not Detected (Not Detect) Enterococcus sp PCR DETECTED A (Not Detect) E. coli (PCR) Not Detected (Not Detect) H. influenzae (PCR) Not Detected (Not Detect) Klebsiella oxytoca PCR Not Detected (Not Detect) Klebsiella pneumoniae Not Detected (Not Detect) List. monocytogenes PCR Not Detected (Not Detect) N. meningitidis (PCR) Not Detected (Not Detect) Proteus species (PCR) Not Detected (Not Detect) Serratia marcescens PCR Not Detected (Not Detect) Staphylococcus sp PCR Not Detected (Not Detect) Staph aureus (PCR) Not Detected (Not Detect) mecA-Methicil Res Gene N/A (Not Detect) Streptococcus sp PCR Not Detected (Not Detect) Group A Strep DNA Not Detected (Not Detect) Group B Strep (PCR) Not Detected (Not Detect) Strep pneumoniae (PCR) Not Detected (Not Detect) P. aeruginosa (PCR) Not Detected (Not Detect) Yeny/B-Vanco Res Genes Not Detected (Not Detect) KPC (blaKPC) Detect PCR N/A (Not Detect) - Impressions Impressions Renal CT 05/08/18 00:00 IMPRESSION: CT-guided aspiration of a small fluid collection in the cortex of the left kidney. No immediate complications. Pathology is pending. D/ / Oj Kendrick MD / Oj Kendrick MD Interpreting Provider: Oj Kendrick MD Abdomen CT 05/08/18 10:00 IMPRESSION: 1. Heterogeneous enhancement of the left kidney, which is again concerning for sequelae of pyelonephritis or renal infarcts, especially as the patient has a history of an infective endocarditis. There are small areas of developing either renal abscess or necrosis. The plan is for CT-guided aspiration today. 2. No significant change in size of a 2.3 cm fluid collection in the hepatic dome, with surrounding hyperemia. Findings are concerning for a small hepatic abscess. This lesion is too high in the liver and small in size for percutaneous needle aspiration/drainage at this time. Continued antibiotic therapy and CT follow-up is recommended. 3. Small bilateral pleural effusions with overlying atelectasis and/or pneumonia. D/ / 05/08/2018 15:22:55 Oj Kendrick MD / mandy Interpreting Provider: Oj Kendrick MD Exam - Constitutional Vitals: Temp Pulse Resp BP Pulse Ox 98.0 F 96 18 102/60 90 05/09/18 07:54 05/09/18 07:54 05/09/18 07:54 05/09/18 07:54 05/09/18 07:54 Exam: General: Vital signs noted, No acute distress, appears nontoxic HEENT: head normocephalic/atraumatic, EOMI, PERRL, sclera anicteric, moist mucus membranes, edentulous Neck: Supple Cardio: RRR, no murmurs, +S1/S2 Pulm: CTAB, symmetric chest rise, Normal respiratory effort. Abdomen: soft, normal bowel sounds present, no rigidity or distention Extremities: Rt AKA, Lt BKA, no cyanosis or clubbing Neuro: AAOx3, no focal deficit, no speech deficit, CN II-XII grossly intact, moves extremities spontaneously Skin: clean, dry, intact Consult Discharge Plan - Plan Referrals: NONE,PCP [Primary Care Provider] - - Attending Attestation I examined this patient and my medical decision-making was reviewed with the Resident Physician. I agree with the documented findings, disposition and treatment plan as described except to the extent set forth below.
--- NOTE | 2018-05-09 10:13 | Internal Med Progress Note ---
<Mukund Del Valle U - Last Filed: 05/09/18 15:13> Hospitalist Progress Note - Encounter Date of Encounter: 05/09/18 Time of Encounter: 07:30 - Subjective Interval History: Pt is seen at bedside without any acute complaints. The patient denies chest pain, nausea, vomiting, abdominal pain or SOB. Pt did not have any acute events overnight. Pt had aspiration of left renal mass by IR yesterday, no complications s/p procedure. Pt still has not had a bowel movement for several days, given a dose of Colace. - Exam Vitals: Temp Pulse Resp BP Pulse Ox 98.0 F 96 18 102/60 90 05/09/18 07:54 05/09/18 07:54 05/09/18 07:54 05/09/18 07:54 05/09/18 07:54 Exam: General: Patient is alert, no acute distress, oriented x 3 Respiratory: Good respiratory effort. Normal breath sounds. No wheezing or crackles. Cardiovascular: Regular rate and rhythm. s1 and s2 normal systolic murmur present. Abdomen: Abdomen is soft, mild mid abdominal tenderness nontender. Bowel sounds are present Musculoskeletal: Status post right AKA and left BKA Skin: warm, dry, intact. Extremities: left below knee amputation, right above knee amputation with no signs of erythema, infection, or rash Neuro: Alert oriented x 3 normal cranial nerves, no focal deficits - Assessment and Plan (1) Sepsis Current Visit: Yes Status: Acute Assessment and Plan: Sepsis criteria met on admission: Tachycardia, tachypnea, WBC 49.1 with 96% segmented neutrophils Technically meets sepsis criteria today with HR > 90 and WBC > 12 Afebrile since admission, Tmax 98.8 F on 05/03 Source: likely multifactorial from bacteremia due to endocarditis, pyelonephritis, and possible liver abscess DKA and pancreatitis also potential etiologies--DKA now resolved and lipase trending down Causative organism: Likely enterococcus faecalis and/or MRSA Leukocytosis improving WBCs 49.1, 30.2, 20...22, 19.4, today 20 No bands on CBC differential Neutrophils 96%, 85.2%, 74.5%...69.6%, 60.8%, today 65.8% Lactic acid: 1.3 Lipase: 404 --> 362 BUN 8, Cr 0.96 05/02 urine culture: MRSA with sensitivity to vancomycin 05/02 blood culture: enterococcus faecalis with sensitivity to vancomycin ( Yeny/B gene not detected by PCR) 05/04 blood culture: no growth to date 05/08 body fluid culture (Lt kidney): no growth 05/02 CXR: No focal lung consolidations, suspicious pulmonary nodules, or pleur al effusion 05/02 CT abdomen/pelvis: Heterogeneous areas of decreased perfusion to cortex left kidney, suggestive of acute pyelonephritis; possible perihepatic abscess or nonspecific lesion of hepatic parenchyma below right hemidiaphragm 05/03 MRI abdomen: 3.5 cm x 2.5 cm lesion corresponding with 05/02 CT finding and not seen on 01/04/18 imaging, possibly abscess, metastatic disease, or i nfarction; 3.3 cm x 2.1 cm cystic lesion upper pole left kidney with suspected blood products, may represent abscess or infarction; left renal edema, potentially pyelonephritis based on it's CT appearance; suspected acute pancreatitis; small bilateral pleural effusions and trace ascites. 05/03 Echocardiogram: no significant valvular dysfunction 05/05 BAILEY: Trileaflet aortic valve. Large mobile echodensity adherent to the Rt coronary cusp measuring 1.4 cm X 0.87 cm. Non-coronary cusp is thickened, can't exclude possible adherent vegetation . Zosyn 3.375 gm IV Q8H --> stopped 05/07/18 (received 7 days) Vancomycin 1 gm IV Q12H pharmacy dosing --> stopped 05/07/18 (received 7 days) Ampicillin 2 gm IV Q4H, day 3 Rocephin 2 gm IV Q12H, day 3 Bactrim 1 each PO BID, day 3 Nystatin suspension 5 mL PO QID, day 6 Technically meets sepsis criteria with HR > 90 and WBC > 12. He is afebrile and hemodynamically stable. IR performed CT guided aspiration of Lt kidney abscess yesterday; couldn't sample hepatic lesion due to it's proximity to the diaphragm and small size. Recommendations: - Continue rocephin 2 gm IV Q12H through 06/15/18 (6 weeks) - Continue ampicillin 2 gm IV Q4H through 06/15/18 (6 weeks) - Continue Bactrim 1 each PO BID for MRSA in urine - Monitor fluid culture (Lt kidney abscess) for growth - Monitor 05/04 blood cultures for growth until report finalized - Monitor for signs of hepato- and nephrotoxicity, dose adjust antibiotics - Consulted PT/OT - Disposition: to ECF for 6 weeks of abx course (2) Endocarditis Current Visit: Yes Status: Acute Assessment and Plan: Meets 2 major Moore criteria: BAILEY with vegetation and Enterococcus on 05/02/18 blood cultures First set negative blood cultures on 05/04/1805/05 BAILEY: Trileaflet aortic valve. Large mobile echodensity adherent to the Rt coronary cusp measuring 1.4 cm X 0.87 cm. Non-coronary cusp is thickened, can't exclude possible adherent vegetation Ampicillin 2 gm IV Q4H, day 3 Rocephin 2 gm IV Q12H, day 3 Recommendations: - Continue ampicillin 2 gm IV Q4H through 06/15/17 (6 weeks from first set negative blood cultures on 05/04/18) - Continue Rocephin 2 gm IV Q12H through 06/15/17 (6 weeks) (3) Gram-positive bacteremia Current Visit: Yes Status: Acute Assessment and Plan: Suspect this is related to endocarditis, but pyelonephritis and liver abscess may have been contributing 05/02 Blood cultures: enterococcus faecalis with sensitivity to vancomycin (Yeny/B gene not detected by PCR) 05/04 blood culture: no growth to date Recommendations as above (4) Pyelonephritis Current Visit: Yes Status: Acute Assessment and Plan: 05/02 urine culture: MRSA with sensitivity to vancomycin Supporting CT and MRI findings as above Lt renal abscess drained by IR on 05/08/18 with fluid sample sent for culture - Preliminary results: no WBC, no epithelial cells, no bacteria - Awaiting final culture results See above for recommendations. (5) DKA (diabetic ketoacidoses) Current Visit: Yes Status: Resolved Assessment and Plan: Blood sugars are better controlled. Plan: - Continue current insulin regimen - Added meal time insulin (6) Hepatic lesion Current Visit: Yes Status: Acute Assessment and Plan: See above. (7) Elevated troponin Current Visit: Yes Status: Acute (8) Pancreatitis Current Visit: Yes Status: Acute Assessment and Plan: Acute pancreatitis without necrosis or infection, unspecified (9) Peripheral vascular disease due to secondary diabetes Current Visit: Yes Status: Acute DVT Prophylaxis: Patient is on IV heparin. We will place him back on Xarelto today - Time Spent with Patient Total time spent is greater than 50% in coordination of care (as documented) at patient's floor/unit and/or counseling patient: Internal Medicine: Result - Labs CBC & Chem 7: 05/09/18 05:05 05/09/18 05:05 Labs: Short CBC 05/09/18 Range/Units 05:05 WBC 20.0 H (4.3-11.1) K/mcL Hgb 9.6 L (12.9-16.9) g/dL Hct 31.1 L (37.5-50.1) % Plt Count 452 H (140-400) K/mcL Neutrophils # 13.2 H (1.6-8.9) K/mcL BMP 05/09/18 05:05 Sodium 135 L Potassium 4.5 Chloride 101 Carbon Dioxide 27 BUN 8 Creatinine 0.96 Glucose 298 H Calcium 7.9 L - ABG Interpretation ABG results: PT/INR, D-dimer PT 14.6 Seconds (9.4-12.1) H 05/05/18 15:04 - Impressions Impressions Renal CT 05/08/18 00:00 IMPRESSION: CT-guided aspiration of a small fluid collection in the cortex of the left kidney. No immediate complications. Pathology is pending. D/ / Oj Kendrick MD / Oj Kendrick MD Interpreting Provider: Oj Kendrick MD Abdomen CT 05/08/18 10:00 IMPRESSION: 1. Heterogeneous enhancement of the left kidney, which is again concerning for sequelae of pyelonephritis or renal infarcts, especially as the patient has a history of an infective endocarditis. There are small areas of developing either renal abscess or necrosis. The plan is for CT-guided aspiration today. 2. No significant change in size of a 2.3 cm fluid collection in the hepatic dome, with surrounding hyperemia. Findings are concerning for a small hepatic abscess. This lesion is too high in the liver and small in size for percutaneous needle aspiration/drainage at this time. Continued antibiotic therapy and CT follow-up is recommended. 3. Small bilateral pleural effusions with overlying atelectasis and/or pneumonia. D/ / 05/08/2018 15:22:55 Oj Kendrick MD / adelia hickey Interpreting Provider: Oj Kendrick MD Consult Discharge Plan - Plan Referrals: NONE,PCP [Primary Care Provider] - <Jen Forbes - Last Filed: 05/09/18 23:38> Hospitalist Progress Note - Encounter Date of Encounter: 05/09/18 - Exam Vitals: Temp Pulse Resp BP Pulse Ox 99.3 F 101 18 94/59 93 05/09/18 21:41 05/09/18 21:41 05/09/18 21:41 05/09/18 21:41 05/09/18 21:41 - Assessment and Plan (1) DKA (diabetic ketoacidoses) Current Visit: Yes Status: Resolved (2) Pyelonephritis Current Visit: Yes Status: Acute (3) Hepatic lesion Current Visit: Yes Status: Acute (4) Elevated troponin Current Visit: Yes Status: Acute (5) Sepsis Current Visit: Yes Status: Acute (6) Gram-positive bacteremia Current Visit: Yes Status: Acute (7) Pancreatitis Current Visit: Yes Status: Acute (8) Peripheral vascular disease due to secondary diabetes Current Visit: Yes Status: Acute (9) Endocarditis Current Visit: Yes Status: Acute - Time Spent with Patient Total time spent is greater than 50% in coordination of care (as documented) at patient's floor/unit and/or counseling patient: Internal Medicine: Result - Labs CBC & Chem 7: 05/09/18 05:05 05/09/18 05:05 Labs: Short CBC 05/09/18 Range/Units 05:05 WBC 20.0 H (4.3-11.1) K/mcL Hgb 9.6 L (12.9-16.9) g/dL Hct 31.1 L (37.5-50.1) % Plt Count 452 H (140-400) K/mcL Neutrophils # 13.2 H (1.6-8.9) K/mcL BMP 05/09/18 05:05 Sodium 135 L Potassium 4.5 Chloride 101 Carbon Dioxide 27 BUN 8 Creatinine 0.96 Glucose 298 H Calcium 7.9 L - ABG Interpretation ABG results: PT/INR, D-dimer PT 14.6 Seconds (9.4-12.1) H 05/05/18 15:04 - Attending Attestation I have examined this patient [id number] and my medical decision-making was reviewed with the Medical Student. I agree with the documented findings, disposition and treatment plan as described except to the extent set forth below. <Mukund Del Valle - Last Filed: 05/09/18 15:13> (1) Sepsis Qualifiers: Sepsis type: sepsis due to unspecified organism Qualified Code(s): A41.9 - Sepsis, unspecified organism (2) Endocarditis Qualifiers: Endocarditis type: infective Infective endocarditis organism: bacterial Chronicity: unspecified Qualified Code(s): I33.0 - Acute and subacute infective endocarditis (5) DKA (diabetic ketoacidoses) Qualifiers: Diabetes mellitus type: type 2 Diabetes mellitus complication detail: without coma Qualified Code(s): E11.10 - Type 2 diabetes mellitus with ketoacidosis without coma (8) Pancreatitis Qualifiers: Chronicity: acute Pancreatitis type: unspecified pancreatitis type Acute pancreatitis complication: unspecified Qualified Code(s): K85.90 - Acute pancreatitis without necrosis or infection, unspecified <Candelaria Forbes Rhevictoria - Last Filed: 05/09/18 23:38> (1) DKA (diabetic ketoacidoses) Qualifiers: Diabetes mellitus type: type 2 Diabetes mellitus complication detail: without coma Qualified Code(s): E11.10 - Type 2 diabetes mellitus with ketoacidosis without coma (5) Sepsis Qualifiers: Sepsis type: sepsis due to unspecified organism Qualified Code(s): A41.9 - Sepsis, unspecified organism (7) Pancreatitis Qualifiers: Chronicity: acute Pancreatitis type: unspecified pancreatitis type Acute pancreatitis complication: unspecified Qualified Code(s): K85.90 - Acute pancreatitis without necrosis or infection, unspecified (9) Endocarditis Qualifiers: Endocarditis type: infective Infective endocarditis organism: bacterial Chronicity: unspecified Qualified Code(s): I33.0 - Acute and subacute infective endocarditis
[2018-05-09] MEDS: *HR* Rivaroxaban 10 MG TABLET PO SCH (12:47)
[2018-05-09] MEDS: Sennosides/Docusate Sodium TABLET PO SCH (12:47)
[2018-05-10] MEDS: Ampicillin 2 GM in 0.9 % Sodium Chloride Mini Bag 100 ML IVPB SCH ×6 (00:31→21:28)
[2018-05-10 04:12] LABS: Basophils # 0.1 K/mcL (0.0-0.2); Basophils % 0.4 %; Eosinophils # 0.6 K/mcL (0.0-0.6); Eosinophils % 3.2 %; Hematocrit 31.8 % (37.5-50.1); Immature Granulocytes % 1.9 % (0-4); Lymphocytes # 3.1 K/mcL (0.6-4.6); Lymphocytes % 16.9 %; Mean Corpuscular HGB Conc 31.4 g/dL (31.6-35.5); Mean Corpuscular Hemoglobin 24.6 pg (28.0-33.3); Mean Corpuscular Volume 78.3 fL (83.0-100.0); Mean Platelet Volume 10.2 fL (9.4-12.4); Monocytes # 2.7 K/mcL (0.0-1.3); Monocytes % 14.4 %; Neutrophils # 11.7 K/mcL (1.6-8.9); Platelet Count 495 K/mcL (140-400); Red Blood Count 4.06 M/mcL (4.19-5.50); Red Cell Distribution Width 16.2 % (11.5-14.5); Segmented Neutrophils % 63.2 %
[2018-05-10 04:27] LABS: BUN/Creatinine Ratio 8 (6-26); Blood Urea Nitrogen 10 mg/dL (6-20); Calcium 8.5 mg/dL (8.6-10.3); Carbon Dioxide 27 mEq/L (23-29); Chloride 102 mEq/L (98-107); Glucose 322 mg/dL (70-105); Osmolality,Calculated 287 (280-300); Potassium 5.5 mEq/L (3.5-5.1); Sodium 133 mEq/L (136-145); eGFR For Non-African Americans > 60 (> 60)
[2018-05-10] MEDS: cefTRIAXone 2,000 MG in Water for inj. (sterile) 20 ML 20 ML IVP SCH ×2 (06:28→18:39)
--- NOTE | 2018-05-10 09:34 | Infectious Disease Progress No ---
Date of Encounter: 05/10/18 Time of Encounter: 09:29 - Assessment and Plan (1) Sepsis Current Visit: Yes Status: Acute Sepsis criteria met on admission: Tachycardia, tachypnea, WBC 49.1 with 96% segmented neutrophils Technically meets sepsis criteria today with HR > 90 and WBC > 12, but clinically improving Afebrile since admission, Tmax 98.8 F on 05/03 Source: likely multifactorial from bacteremia due to endocarditis, pyelonephritis, and possible liver abscess DKA and pancreatitis also potential etiologies--DKA now resolved and lipase trending down Causative organism: Likely enterococcus faecalis and/or MRSA Leukocytosis improving WBCs 49.1, 30.2, 20...22, 19.4, 20, today 18.5 No bands on CBC differential Neutrophils 96%, 85.2%, 74.5%...69.6%, 60.8%, 65.8%, today 63.2% Lactic acid: 1.3 Lipase: 404 --> 362 BUN 10, Cr 1.22 05/02 urine culture: MRSA with sensitivity to vancomycin 05/02 blood culture: enterococcus faecalis with sensitivity to vancomycin (Yeny/B gene not detected by PCR) 05/04 blood culture: no growth x 1 set --> final 05/08 body fluid culture (Lt kidney): no growth; no observed WBCs or bacteria 05/02 CXR: No focal lung consolidations, suspicious pulmonary nodules, or pleural effusion 05/02 CT abdomen/pelvis: Heterogeneous areas of decreased perfusion to cortex left kidney, suggestive of acute pyelonephritis; possible perihepatic abscess or nonspecific lesion of hepatic parenchyma below right hemidiaphragm 05/03 MRI abdomen: 3.5 cm x 2.5 cm lesion corresponding with 05/02 CT finding and not seen on 01/04/18 imaging, possibly abscess, metastatic disease, or infarction; 3.3 cm x 2.1 cm cystic lesion upper pole left kidney with suspected blood products, may represent abscess or infarction; left renal edema, potentially pyelonephritis based on it's CT appearance; suspected acute pancreatitis; small bilateral pleural effusions and trace ascites. 05/03 Echocardiogram: no significant valvular dysfunction 05/05 BAILEY: Trileaflet aortic valve. Large mobile echodensity adherent to the Rt coronary cusp measuring 1.4 cm X 0.87 cm. Non-coronary cusp is thickened, can't exclude possible adherent vegetation . Zosyn 3.375 gm IV Q8H --> stopped 05/07/18 (received 7 days) Vancomycin 1 gm IV Q12H pharmacy dosing --> stopped 05/07/18 (received 7 days) Ampicillin 2 gm IV Q4H, day 4 Rocephin 2 gm IV Q12H, day 4 Bactrim 1 each PO BID, day 4 Nystatin suspension 5 mL PO QID, day 7 Again, technically meeting sepsis criteria (HR > 90 and WBC > 12). Continues to be afebrile and hemodynamically stable, although slightly tachycardic HR 95-110. IR performed CT guided aspiration of Lt kidney abscess 05/08/18; couldn't sample hepatic lesion due to it's proximity to the diaphragm and small size. Patient asking when his discharge papers will be done so he can go home; I explained discharge will ultimately be decided by his primary team. Recommendations: - Continue rocephin 2 gm IV Q12H through 06/15/18 (6 weeks) - Continue ampicillin 2 gm IV Q4H through 06/15/18 (6 weeks) - Continue Bactrim 1 each PO BID through 05/16/18 (Antibiotic course, including vancomycin, to total 14 days) - Monitor fluid culture (Lt kidney abscess) for growth - Monitor for signs of hepato- and nephrotoxicity, dose adjust antibiotics Qualifiers: Sepsis type: sepsis due to unspecified organism Qualified Code(s): A41.9 - Sepsis, unspecified organism (2) Endocarditis Current Visit: Yes Status: Acute Meets 2 major Moore criteria: BAILEY with vegetation and Enterococcus on 05/02/18 blood cultures First set negative blood cultures on 05/04/1805/05 BAILEY: Trileaflet aortic valve. Large mobile echodensity adherent to the Rt coronary cusp measuring 1.4 cm X 0.87 cm. Non-coronary cusp is thickened, can't exclude possible adherent vegetation Ampicillin 2 gm IV Q4H, day 4 Rocephin 2 gm IV Q12H, day 4 Recommendations: - Continue ampicillin 2 gm IV Q4H through 06/15/17 (6 weeks from first set negative blood cultures on 05/04/18) - Continue Rocephin 2 gm IV Q12H through 06/15/17 (6 weeks) Qualifiers: Endocarditis type: infective Infective endocarditis organism: bacterial Chronicity: unspecified Qualified Code(s): I33.0 - Acute and subacute infective endocarditis (3) Gram-positive bacteremia Current Visit: Yes Status: Acute Resolved Suspect this is related to endocarditis, but pyelonephritis and liver abscess may have been contributing 05/02 Blood cultures: enterococcus faecalis with sensitivity to vancomycin (Yeny/B gene not detected by PCR) 05/04 blood culture: no growth to date --> final Recommendations as above (4) Pancreatitis Current Visit: Yes Status: Acute Qualifiers: Chronicity: acute Pancreatitis type: unspecified pancreatitis type Acute pancreatitis complication: unspecified Qualified Code(s): K85.90 - Acute pancreatitis without necrosis or infection, unspecified (5) Peripheral vascular disease due to secondary diabetes Current Visit: Yes Status: Acute (6) DKA (diabetic ketoacidoses) Current Visit: Yes Status: Resolved Qualifiers: Diabetes mellitus type: type 2 Diabetes mellitus complication detail: without coma Qualified Code(s): E11.10 - Type 2 diabetes mellitus with ketoacidosis without coma (7) Pyelonephritis Current Visit: Yes Status: Acute 05/02 urine culture: MRSA with sensitivity to vancomycin Supporting CT and MRI findings as above Lt renal abscess drained by IR on 05/08/18 with fluid sample sent for culture Recommendations as above (8) Hepatic lesion Current Visit: Yes Status: Acute As above (9) Elevated troponin Current Visit: Yes Status: Acute - Subjective Interval history: Seen and examined this morning at bedside. He is in no acute distress and appears comfortable in bed. States he is doing alright today, no issues overnight. Only pain is in his back, which is chronic and unchanged from baseline, abdomen only painful if pushed on too hard like it was yesterday. Asking about when his discharge papers will be done so he can go home. Denies chills, subjective fever, night sweats, abdominal pain. Infect Dis PN-Objective Data - Labs CBC & Chem 7: 05/11/18 05:15 05/11/18 05:15 Labs: Laboratory Results - last 24 hr 05/08/18 05/09/18 05/09/18 16:16 07:50 12:10 WBC RBC Hgb Hct MCV MCH MCHC RDW Plt Count MPV Immature Gran % Seg Neutrophils % Lymphocytes % Monocytes % Eosinophils % Basophils % Neutrophils # Lymphocytes # Monocytes # Eosinophils # Basophils # Sodium Potassium Chloride Carbon Dioxide BUN Creatinine Est GFR ( Amer) Est GFR (Non-Af Amer) BUN/Creatinine Ratio Glucose POC Glucose 97 299 H 123 H Calculated Osmolality Calcium 05/09/18 05/10/18 05/10/18 16:11 04:00 04:00 WBC 18.5 H RBC 4.06 L Hgb 10.0 L Hct 31.8 L MCV 78.3 L MCH 24.6 L MCHC 31.4 L RDW 16.2 H Plt Count 495 H MPV 10.2 Immature Gran % 1.9 Seg Neutrophils % 63.2 Lymphocytes % 16.9 Monocytes % 14.4 Eosinophils % 3.2 Basophils % 0.4 Neutrophils # 11.7 H Lymphocytes # 3.1 Monocytes # 2.7 H Eosinophils # 0.6 Basophils # 0.1 Sodium 133 L Potassium 5.5 H Chloride 102 Carbon Dioxide 27 BUN 10 Creatinine 1.22 Est GFR ( Amer) > 60 Est GFR (Non-Af Amer) > 60 BUN/Creatinine Ratio 8 Glucose 322 H POC Glucose 107 H Calculated Osmolality 287 Calcium 8.5 L Cultures: Cultures 05/08/18 13:13 Body Fluid Culture - Preliminary Other-Specify in Comments 05/04/18 09:29 Blood Culture - Final Peripheral Venipuncture No growth. Final report. 05/04/18 09:29 Blood Culture - Final Peripheral Venipuncture No growth. Final report. 05/02/18 11:29 Urine Culture - Final Urine,Clean Catch Methicillin Resistant S.aureus 05/02/18 15:45 Blood Culture - Final Peripheral Venipuncture Enterococcus faecalis 05/02/18 11:07 Blood Culture - Final Peripheral Venipuncture Enterococcus faecalis Serology 05/02/18 05/02/18 Range/Units 11:29 11:07 Urine Color Yellow (Yellow) Urine Clarity Clear (Clear) Urine pH 5.5 (5.0-8.0) pH Units Ur Specific Gordon 1.029 H (1.010-1.025) Urine Protein 30 H (Neg-Trace) mg/dL Urine Glucose (UA) >=1000 H (Normal) mg/dL Urine Ketones >=160 H (Negative) mg/dL Urine Blood Small H (Negative) Urine Nitrite Negative (Negative) Urine Bilirubin Negative (Negative) Urine Urobilinogen Normal (Normal) mg/dL Ur Leukocyte Esterase Small H (Negative) Urine Microscopic RBC 0-3 (0-3) per hpf Urine Microscopic WBC 50-100 H (0-3) per hpf Ur Squamous Epith Cells Few (None-Few) per lpf Urine Bacteria None Seen (None-Few) per hpf Hyaline Casts Few (None-Few) per lpf Ur Culture Indicated? YES A (NO) A. baumannii (PCR) Not Detected (Not Detect) Chelle albicans (PCR) Not Detected (Not Detect) C. glabrata (PCR) Not Detected (Not Detect) C. krusei (PCR) Not Detected (Not Detect) C. parapsilosis (PCR) Not Detected (Not Detect) C. tropicalis (PCR) Not Detected (Not Detect) Enterobacteriac sp PCR Not Detected (Not Detect) E. cloacae complex PCR Not Detected (Not Detect) Enterococcus sp PCR DETECTED A (Not Detect) E. coli (PCR) Not Detected (Not Detect) H. influenzae (PCR) Not Detected (Not Detect) Klebsiella oxytoca PCR Not Detected (Not Detect) Klebsiella pneumoniae Not Detected (Not Detect) List. monocytogenes PCR Not Detected (Not Detect) N. meningitidis (PCR) Not Detected (Not Detect) Proteus species (PCR) Not Detected (Not Detect) Serratia marcescens PCR Not Detected (Not Detect) Staphylococcus sp PCR Not Detected (Not Detect) Staph aureus (PCR) Not Detected (Not Detect) mecA-Methicil Res Gene N/A (Not Detect) Streptococcus sp PCR Not Detected (Not Detect) Group A Strep DNA Not Detected (Not Detect) Group B Strep (PCR) Not Detected (Not Detect) Strep pneumoniae (PCR) Not Detected (Not Detect) P. aeruginosa (PCR) Not Detected (Not Detect) Yeny/B-Vanco Res Genes Not Detected (Not Detect) KPC (blaKPC) Detect PCR N/A (Not Detect) Exam - Constitutional Vitals: Temp Pulse Resp BP Pulse Ox 98.9 F 102 18 94/66 92 05/10/18 07:54 05/10/18 07:54 05/10/18 07:54 05/10/18 07:54 05/10/18 07:54 Exam: General: Vital signs noted, No acute distress, appears nontoxic HEENT: head normocephalic/atraumatic, EOMI, PERRL, sclera anicteric, moist mucus membranes, edentulous Neck: Supple Cardio: RRR, no murmurs, +S1/S2 Pulm: CTAB, symmetric chest rise, Normal respiratory effort. Abdomen: soft, normal bowel sounds present, no rigidity or distention Extremities: Rt AKA, Lt BKA, no cyanosis or clubbing Neuro: AAOx3, no focal deficit, no speech deficit, CN II-XII grossly intact, moves extremities spontaneously Skin: clean, dry, intact Consult Discharge Plan - Plan Referrals: NONE,PCP [Primary Care Provider] - Prescriptions: cefTRIAXone [Rocephin] 2,000 mg IVPB Q12HR #70 vial RX: Ampicillin 2 gm IV Q4H #210 vial Sulfamethoxazole/Trimeth DS [Bactrim DS] 1 each PO BID #70 tablet - Attending Attestation I examined this patient and my medical decision-making was reviewed with the Resident Physician. I agree with the documented findings, disposition and treatment plan as described except to the extent set forth below.
--- NOTE | 2018-05-10 10:17 | Internal Med Progress Note ---
<Mukund Del Valle U - Last Filed: 05/10/18 10:32> Hospitalist Progress Note - Encounter Date of Encounter: 05/10/18 Time of Encounter: 08:00 - Subjective Interval History: Pt is seen at bedside without any acute complaints. The patient denies chest pain, nausea, vomiting, abdominal pain or SOB. Pt did not have any acute events overnight. Pt had aspiration of left renal mass by IR 05/08, no complications s/p procedure. Pt still has not had a bowel movement for several days, bowel sounds are present on auscultation. Pt been given supplements to help with bowel movements. Pt wants to be discharged. SW is working to see if pt is willing to go to [facility] to complete 6 week IV abx course and will talk to pt today. - Exam Vitals: Temp Pulse Resp BP Pulse Ox 98.9 F 102 18 94/66 92 05/10/18 07:54 05/10/18 07:54 05/10/18 07:54 05/10/18 07:54 05/10/18 07:54 Exam: General: Patient is alert, no acute distress, oriented x 3 Respiratory: Good respiratory effort. Normal breath sounds. No wheezing or crackles. Cardiovascular: Regular rate and rhythm. s1 and s2 normal systolic murmur present. Abdomen: Abdomen is soft, mild mid abdominal tenderness nontender. Bowel sounds are present Musculoskeletal: Status post right AKA and left BKA Skin: warm, dry, intact. Extremities: left below knee amputation, right above knee amputation with no si gns of erythema, infection, or rash Neuro: Alert oriented x 3 normal cranial nerves, no focal deficits - Assessment and Plan (1) Sepsis Current Visit: Yes Status: Acute Assessment and Plan: Sepsis criteria met on admission: Tachycardia, tachypnea, WBC 49.1 with 96% segmented neutrophils Technically meets sepsis criteria today with HR > 90 and WBC > 12, but clinically improving Afebrile since admission, Tmax 98.8 F on 05/03 Source: likely multifactorial from bacteremia due to endocarditis, pyelonephritis, and possible liver abscess DKA and pancreatitis also potential etiologies--DKA now resolved and lipase trending down Causative organism: Likely enterococcus faecalis and/or MRSA Leukocytosis improving WBCs 49.1, 30.2, 20...22, 19.4, 20, today 18.5 No bands on CBC differential Neutrophils 96%, 85.2%, 74.5%...69.6%, 60.8%, 65.8%, today 63.2% Lactic acid: 1.3 Lipase: 404 --> 362 BUN 10, Cr 1.22 05/02 urine culture: MRSA with sensitivity to vancomycin 05/02 blood culture: enterococcus faecalis with sensitivity to vancomycin (eYny/B gene not detected by PCR) 05/04 blood culture: no growth x 1 set --> final 05/08 body fluid culture (Lt kidney): no growth; no observed WBCs or bacteria 05/02 CXR: No focal lung consolidations, suspicious pulmonary nodules, or pleural effusion 05/02 CT abdomen/pelvis: Heterogeneous areas of decreased perfusion to cortex left kidney, suggestive of acute pyelonephritis; possible perihepatic abscess or nonspecific lesion of hepatic parenchyma below right hemidiaphragm 05/03 MRI abdomen: 3.5 cm x 2.5 cm lesion corresponding with 05/02 CT finding and not seen on 01/04/18 imaging, possibly abscess, metastatic disease, or infarction; 3.3 cm x 2.1 cm cystic lesion upper pole left kidney with suspected blood products, may represent abscess or infarction; left renal edema, potentially pyelonephritis based on it's CT appearance; suspected acute pancreatitis; small bilateral pleural effusions and trace ascites. 05/03 Echocardiogram: no significant valvular dysfunction 05/05 BAILEY: Trileaflet aortic valve. Large mobile echodensity adherent to the Rt coronary cusp measuring 1.4 cm X 0.87 cm. Non-coronary cusp is thickened, can't exclude possible adherent vegetation . Zosyn 3.375 gm IV Q8H --> stopped 05/07/18 (received 7 days) Vancomycin 1 gm IV Q12H pharmacy dosing --> stopped 05/07/18 (received 7 days) Ampicillin 2 gm IV Q4H, day 4 Rocephin 2 gm IV Q12H, day 4 Bactrim 1 each PO BID, day 4 Nystatin suspension 5 mL PO QID, day 7 Again, technically meeting sepsis criteria (HR > 90 and WBC > 12). Continues to be afebrile and hemodynamically stable, although slightly tachycardic HR 95-110. IR performed CT guided aspiration of Lt kidney abscess 05/08/18; couldn't sample hepatic lesion due to it's proximity to the diaphragm and small size. Patient asking when his discharge papers will be done so he can go home; I explained discharge will ultimately be decided by his primary team. Recommendations: - Continue rocephin 2 gm IV Q12H through 06/15/18 (6 weeks) - Continue ampicillin 2 gm IV Q4H through 06/15/18 (6 weeks) - Continue Bactrim 1 each PO BID through 05/16/18 (Antibiotic course, including vancomycin, to total 14 days) - Monitor fluid culture (Lt kidney abscess) for growth - Monitor for signs of hepato- and nephrotoxicity, dose adjust antibiotics - Disposition: SW communicating with pt to go to [facility] for completion of 6 weeks of abx course (2) Endocarditis Current Visit: Yes Status: Acute Assessment and Plan: Meets 2 major Moore criteria: BAILEY with vegetation and Enterococcus on 05/02/18 blood cultures First set negative blood cultures on 05/04/1805/05 BAILEY: Trileaflet aortic valve. Large mobile echodensity adherent to the Rt coronary cusp measuring 1.4 cm X 0.87 cm. Non-coronary cusp is thickened, can't exclude possible adherent vegetation Ampicillin 2 gm IV Q4H, day 4 Rocephin 2 gm IV Q12H, day 4 Recommendations: - Continue ampicillin 2 gm IV Q4H through 06/15/17 (6 weeks from first set negative blood cultures on 05/04/18) - Continue Rocephin 2 gm IV Q12H through 06/15/17 (6 weeks) (3) Gram-positive bacteremia Current Visit: Yes Status: Acute Assessment and Plan: Resolved Suspect this is related to endocarditis, but pyelonephritis and liver abscess may have been contributing 05/02 Blood cultures: enterococcus faecalis with sensitivity to vancomycin (Yeny/B gene not detected by PCR) 05/04 blood culture: no growth to date --> final Recommendations as above (4) Pyelonephritis Current Visit: Yes Status: Acute Assessment and Plan: 05/02 urine culture: MRSA with sensitivity to vancomycin Supporting CT and MRI findings as above Lt renal abscess drained by IR on 05/08/18 with fluid sample sent for culture Recommendations as above (5) DM2 (diabetes mellitus, type 2) Current Visit: No Status: Chronic Assessment and Plan: Blood sugars have increased to 322 - 05/09: 298 - 12/3: 188 Plan: - Continue current insulin regimen - Added meal time insulin (6) DKA (diabetic ketoacidoses) Current Visit: Yes Status: Resolved (7) Hepatic lesion Current Visit: Yes Status: Acute Assessment and Plan: As above (8) Elevated troponin Current Visit: Yes Status: Acute Assessment and Plan: From demand ischemia. No further cardiac workup planned at this time (9) Pancreatitis Current Visit: Yes Status: Acute Assessment and Plan: Tolerating oral diet. patient on laxatives (10) Peripheral vascular disease due to secondary diabetes Current Visit: Yes Status: Acute DVT Prophylaxis: Xarelto - Time Spent with Patient Total time spent is greater than 50% in coordination of care (as documented) at patient's floor/unit and/or counseling patient: Plan of Care Discussed with: patient Internal Medicine: Result - Labs CBC & Chem 7: 05/10/18 04:00 05/10/18 04:00 Labs: Short CBC 05/10/18 Range/Units 04:00 WBC 18.5 H (4.3-11.1) K/mcL Hgb 10.0 L (12.9-16.9) g/dL Hct 31.8 L (37.5-50.1) % Plt Count 495 H (140-400) K/mcL Neutrophils # 11.7 H (1.6-8.9) K/mcL BMP 05/10/18 04:00 Sodium 133 L Potassium 5.5 H Chloride 102 Carbon Dioxide 27 BUN 10 Creatinine 1.22 Glucose 322 H Calcium 8.5 L - ABG Interpretation ABG results: PT/INR, D-dimer PT 14.6 Seconds (9.4-12.1) H 05/05/18 15:04 Consult Discharge Plan - Plan Referrals: NONE,PCP [Primary Care Provider] - <Jen Forbes - Last Filed: 05/10/18 20:12> Hospitalist Progress Note - Encounter Date of Encounter: 05/10/18 - Exam Vitals: Temp Pulse Resp BP Pulse Ox 99.3 F 101 18 105/70 93 05/10/18 11:16 05/10/18 11:16 05/10/18 11:16 05/10/18 11:16 05/10/18 11:16 - Assessment and Plan (1) DKA (diabetic ketoacidoses) Current Visit: Yes Status: Resolved (2) Pyelonephritis Current Visit: Yes Status: Acute (3) Hepatic lesion Current Visit: Yes Status: Acute (4) Elevated troponin Current Visit: Yes Status: Acute (5) Sepsis Current Visit: Yes Status: Acute (6) Gram-positive bacteremia Current Visit: Yes Status: Acute (7) Pancreatitis Current Visit: Yes Status: Acute (8) Peripheral vascular disease due to secondary diabetes Current Visit: Yes Status: Acute (9) Endocarditis Current Visit: Yes Status: Acute - Time Spent with Patient Total time spent is greater than 50% in coordination of care (as documented) at patient's floor/unit and/or counseling patient: Internal Medicine: Result - Labs CBC & Chem 7: 05/10/18 04:00 05/10/18 04:00 Labs: Short CBC 05/10/18 Range/Units 04:00 WBC 18.5 H (4.3-11.1) K/mcL Hgb 10.0 L (12.9-16.9) g/dL Hct 31.8 L (37.5-50.1) % Plt Count 495 H (140-400) K/mcL Neutrophils # 11.7 H (1.6-8.9) K/mcL BMP 05/10/18 04:00 Sodium 133 L Potassium 5.5 H Chloride 102 Carbon Dioxide 27 BUN 10 Creatinine 1.22 Glucose 322 H Calcium 8.5 L - ABG Interpretation ABG results: PT/INR, D-dimer PT 14.6 Seconds (9.4-12.1) H 05/05/18 15:04 - Impressions Impressions Abdomen CT 05/10/18 14:24 IMPRESSION: The study of the parenchyma is very limited without intravenous contrast. The overall extent of low attenuation within the right hepatic lobe dome has decreased. No discrete hepatic dome fluid collection is visualized on the current study. Overall decreased size of posterior left renal collection compatible with a infectious process. Of small bilateral pleural effusions, slightly decreased in size. D/ / Kamryn Peace Cha, MD / Kamryn Peace Cha, MD Interpreting Provider: Kamryn Peace Cha, MD - Attending Attestation I have examined this patient [id number] and my medical decision-making was reviewed with the Resident Physician. I agree with the documented findings, disposition and treatment plan as described except to the extent set forth below. Will need re scan of abdomen to assess status of liver abscess. Given this is possible source of bacteremia. <Mukund Del Valle - Last Filed: 05/10/18 10:32> (1) Sepsis Qualifiers: Sepsis type: sepsis due to unspecified organism Qualified Code(s): A41.9 - Sepsis, unspecified organism (2) Endocarditis Qualifiers: Endocarditis type: infective Infective endocarditis organism: bacterial Chronicity: unspecified Qualified Code(s): I33.0 - Acute and subacute infective endocarditis (5) DM2 (diabetes mellitus, type 2) Qualifiers: Diabetes mellitus snf insulin use: with intermodal customer service use Diabetes mellitus complication status: with circulatory complication Diabetes mellitus complication detail: with other circulatory complications Qualified Code(s): E11.59 - Type 2 diabetes mellitus with other circulatory complications; Z79.4 - nursing home (current) use of insulin; 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; 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; Z79.4 - nursing home (current) use of insulin (6) DKA (diabetic ketoacidoses) Qualifiers: Diabetes mellitus type: type 2 Diabetes mellitus complication detail: without coma Qualified Code(s): E11.10 - Type 2 diabetes mellitus with ketoacidosis without coma (9) Pancreatitis Qualifiers: Chronicity: acute Pancreatitis type: unspecified pancreatitis type Acute pancreatitis complication: unspecified Qualified Code(s): K85.90 - Acute pancreatitis without necrosis or infection, unspecified <Jen Forbes - Last Filed: 05/10/18 20:12> (1) DKA (diabetic ketoacidoses) Qualifiers: Diabetes mellitus type: type 2 Diabetes mellitus complication detail: without coma Qualified Code(s): E11.10 - Type 2 diabetes mellitus with ketoacidosis without coma (5) Sepsis Qualifiers: Sepsis type: sepsis due to unspecified organism Qualified Code(s): A41.9 - Sepsis, unspecified organism (7) Pancreatitis Qualifiers: Chronicity: acute Pancreatitis type: unspecified pancreatitis type Acute pancreatitis complication: unspecified Qualified Code(s): K85.90 - Acute pancreatitis without necrosis or infection, unspecified (9) Endocarditis Qualifiers: Endocarditis type: infective Infective endocarditis organism: bacterial Chronicity: unspecified Qualified Code(s): I33.0 - Acute and subacute infective endocarditis
[2018-05-10] MEDS: Sulfamethoxazole/Trimeth DS 1 EACH TABLET PO SCH ×2 (11:00→21:29)
[2018-05-10] MEDS: Ascorbic Acid 500 MG TABLET PO SCH (11:00)
[2018-05-10] MEDS: *HR* Rivaroxaban 10 MG TABLET PO SCH (11:00)
[2018-05-10] MEDS: Sennosides/Docusate Sodium TABLET PO SCH ×2 (11:00→21:29)
[2018-05-10] MEDS: Lactobacillus 1 EACH CAP.SPRINK PO SCH ×2 (11:01→21:29)
[2018-05-10] MEDS: Nystatin SUSP 5 ML UD.LIQ PO SCH ×4 (11:01→21:29)
[2018-05-10] MEDS: Fenofibrate 54 MG TABLET PO SCH (11:01)
[2018-05-10] MEDS: Insulin LISPRO 300 UNITS/3 ML VIAL SQ SCH ×7 (11:01→21:30)
[2018-05-10] MEDS: Insulin DETEMIR 100 UNIT/ML X5UNITS SQ SCH ×2 (11:08→21:28)
[2018-05-10] MEDS ORDERED: Milk and Molasses Enema 200 ML RC ONE (13:39)
[2018-05-10] MEDS: Gabapentin 400 MG CAPSULE PO SCH (20:10)
[2018-05-11] MEDS: Ampicillin 2 GM in 0.9 % Sodium Chloride Mini Bag 100 ML IVPB SCH ×6 (01:44→22:34)
[2018-05-11 05:26] LABS: Basophils # 0.1 K/mcL (0.0-0.2); Basophils % 0.3 %; Eosinophils # 0.5 K/mcL (0.0-0.6); Eosinophils % 2.7 %; Hematocrit 33.1 % (37.5-50.1); Hemoglobin 10.4 g/dL (12.9-16.9); Immature Granulocytes % 1.4 % (0-4); Lymphocytes # 3.1 K/mcL (0.6-4.6); Lymphocytes % 15.4 %; Mean Corpuscular HGB Conc 31.4 g/dL (31.6-35.5); Mean Corpuscular Hemoglobin 24.6 pg (28.0-33.3); Mean Corpuscular Volume 78.3 fL (83.0-100.0); Monocytes # 2.6 K/mcL (0.0-1.3); Monocytes % 13.1 %; Neutrophils # 13.6 K/mcL (1.6-8.9); Platelet Count 536 K/mcL (140-400); Red Blood Count 4.23 M/mcL (4.19-5.50); Red Cell Distribution Width 16.1 % (11.5-14.5); Segmented Neutrophils % 67.1 %
[2018-05-11] MEDS: cefTRIAXone 2,000 MG in Water for inj. (sterile) 20 ML 20 ML IVP SCH ×2 (05:26→17:14)
[2018-05-11 05:44] LABS: BUN/Creatinine Ratio 12 (6-26); Blood Urea Nitrogen 13 mg/dL (6-20); Calcium 8.9 mg/dL (8.6-10.3); Carbon Dioxide 29 mEq/L (23-29); Chloride 100 mEq/L (98-107); Glucose 180 mg/dL (70-105); Osmolality,Calculated 281 (280-300); Potassium 5.1 mEq/L (3.5-5.1); Sodium 133 mEq/L (136-145); eGFR For Non-African Americans > 60 (> 60)
--- NOTE | 2018-05-11 09:07 | Internal Med Progress Note ---
<Desean Spring - Last Filed: 05/11/18 09:05> Hospitalist Progress Note - Encounter Date of Encounter: 05/11/18 Time of Encounter: 09:05 - Exam Vitals: Temp Pulse Resp BP Pulse Ox 98.8 F 105 16 112/52 90 05/11/18 07:04 05/11/18 07:04 05/11/18 07:04 05/11/18 07:04 05/11/18 07:04 Exam: General: Patient is alert, no acute distress, oriented x 3 Respiratory: Good respiratory effort. no wheezing noted. mild right lower lobe rales. Cardiovascular: Regular rate and rhythm. s1 and s2 normal systolic murmur present. Abdomen: Abdomen is soft, mild mid abdominal tenderness to palpation in right upper quadrant. Bowel sounds are present Musculoskeletal: Status post right AKA and left BKA Skin: warm, dry, intact. Extremities: left below knee amputation, right above knee amputation with no signs of erythema, infection, or rash Neuro: Alert oriented x 3 normal cranial nerves, no focal deficits - Assessment and Plan (1) Sepsis Current Visit: Yes Status: Acute Assessment and Plan: patient admitted with sepsis criteria, found to have DKA. currently resolved. source of infection: bacteremia, liver abscess, pyelonephritis 05/02 blood culture x2 sets positive for Enterococcus. 05/02 urine culture positive for MRSA 05/04 blood culture x2 sets negative. 05/08 left renal abscess culture positive for enterococcus. 05/08: left renal mass aspiration done by IR hepatic abscess could not be drained due to its proximity to diaphragm. Repeat CT scan however does show decrease in size of hepatic abscess. will continue to monitor with follow up imaging Plan: awaiting placement. conitnue rocephin, ampicillin, bactrim through 06/15 per ID recommendations. (2) Endocarditis Current Visit: Yes Status: Acute Assessment and Plan: Mr. Slaughter 58-year-old male found to have enterococcus bacteremia - Underwent transesophageal echocardiogram 05/05/2018 showing LVEF 55%, normal LV size and function, right ventricle normal size and systolic function. Trileaflet aortic valve. There is a large mobile echodensity, adherent to the right coronary cusp measuring 1.4cmx.87cm (3) Gram-positive bacteremia Current Visit: Yes Status: Acute Assessment and Plan: Continue IV antibiotics. (4) Pyelonephritis Current Visit: Yes Status: Acute Assessment and Plan: plan as above (5) DKA (diabetic ketoacidoses) Current Visit: Yes Status: Resolved Assessment and Plan: Blood sugars are better controlled. Continue current insulin regimen (6) Hepatic lesion Current Visit: Yes Status: Acute Assessment and Plan: Possible abscess. IR could not drain due to its proximity to diaphragm. repeat CT A/P from 05/10 shows overall decrease in size of hepatic lesion. Plan: continue with current antibiotics and continue to monitor. (7) Elevated troponin Current Visit: Yes Status: Acute Assessment and Plan: From demand ischemia. No further cardiac workup planned at this time (8) Pancreatitis Current Visit: Yes Status: Acute Assessment and Plan: Tolerating oral diet. resolved. (9) Peripheral vascular disease due to secondary diabetes Current Visit: Yes Status: Acute Assessment and Plan: Continue to monitor blood sugars. Symptomatic treatment. (10) DVT prophylaxis Current Visit: Yes Status: Acute Assessment and Plan: continue Xarelto for history of DVT. - Time Spent with Patient Total time spent is greater than 50% in coordination of care (as documented) at patient's floor/unit and/or counseling patient: Internal Medicine: Result - Labs CBC & Chem 7: 05/11/18 05:15 05/11/18 05:15 Labs: Short CBC 05/11/18 Range/Units 05:15 WBC 20.2 H (4.3-11.1) K/mcL Hgb 10.4 L (12.9-16.9) g/dL Hct 33.1 L (37.5-50.1) % Plt Count 536 H (140-400) K/mcL Neutrophils # 13.6 H (1.6-8.9) K/mcL BMP 05/11/18 05:15 Sodium 133 L Potassium 5.1 Chloride 100 Carbon Dioxide 29 BUN 13 Creatinine 1.10 Glucose 180 H Calcium 8.9 - ABG Interpretation ABG results: PT/INR, D-dimer PT 14.6 Seconds (9.4-12.1) H 05/05/18 15:04 - Impressions Impressions Abdomen CT 05/10/18 14:24 IMPRESSION: The study of the parenchyma is very limited without intravenous contrast. The overall extent of low attenuation within the right hepatic lobe dome has decreased. No discrete hepatic dome fluid collection is visualized on the current study. Overall decreased size of posterior left renal collection compatible with a infectious process. Of small bilateral pleural effusions, slightly decreased in size. D/ / Kamryn Peace Cha, MD / Kamryn Peace Cha, MD Interpreting Provider: Kamryn Peace Cha, MD Consult Discharge Plan - Plan Referrals: NONE,PCP [Primary Care Provider] - Prescriptions: cefTRIAXone [Rocephin] 2,000 mg IVPB Q12HR #70 vial Ampicillin 2 gm IV Q4H #210 vial Sulfamethoxazole/Trimeth DS [Bactrim DS] 1 each PO BID #70 tablet <Jne Forbes - Last Filed: 05/11/18 17:10> Hospitalist Progress Note - Encounter Date of Encounter: 05/11/18 - Exam Vitals: Temp Pulse Resp BP Pulse Ox 99 F 110 16 102/76 92 05/11/18 11:35 05/11/18 11:35 05/11/18 11:35 05/11/18 11:35 05/11/18 11:35 - Assessment and Plan (1) DKA (diabetic ketoacidoses) Current Visit: Yes Status: Resolved (2) Pyelonephritis Current Visit: Yes Status: Acute (3) Hepatic lesion Current Visit: Yes Status: Acute (4) Elevated troponin Current Visit: Yes Status: Acute (5) Sepsis Current Visit: Yes Status: Acute (6) Gram-positive bacteremia Current Visit: Yes Status: Resolved (7) Pancreatitis Current Visit: Yes Status: Resolved (8) Peripheral vascular disease due to secondary diabetes Current Visit: Yes Status: Acute (9) Endocarditis Current Visit: Yes Status: Acute - Time Spent with Patient Total time spent is greater than 50% in coordination of care (as documented) at patient's floor/unit and/or counseling patient: Internal Medicine: Result - Labs CBC & Chem 7: 05/11/18 05:15 05/11/18 05:15 Labs: Short CBC 05/11/18 Range/Units 05:15 WBC 20.2 H (4.3-11.1) K/mcL Hgb 10.4 L (12.9-16.9) g/dL Hct 33.1 L (37.5-50.1) % Plt Count 536 H (140-400) K/mcL Neutrophils # 13.6 H (1.6-8.9) K/mcL BMP 05/11/18 05:15 Sodium 133 L Potassium 5.1 Chloride 100 Carbon Dioxide 29 BUN 13 Creatinine 1.10 Glucose 180 H Calcium 8.9 - ABG Interpretation ABG results: PT/INR, D-dimer PT 14.6 Seconds (9.4-12.1) H 05/05/18 15:04 - Impressions Impressions Abdomen CT 05/10/18 14:24 IMPRESSION: The study of the parenchyma is very limited without intravenous contrast. The overall extent of low attenuation within the right hepatic lobe dome has decreased. No discrete hepatic dome fluid collection is visualized on the current study. Overall decreased size of posterior left renal collection compatible with a infectious process. Of small bilateral pleural effusions, slightly decreased in size. D/ / Kamryn Peace Cha, MD / Kamryn Peace Cha, MD Interpreting Provider: Kamryn Peace Cha, MD - Attending Attestation I have examined this patient [id number] and my medical decision-making was reviewed with the Resident Physician. I agree with the documented findings, disposition and treatment plan as described except to the extent set forth below. <Desean Spring - Last Filed: 05/11/18 09:05> (1) Sepsis Qualifiers: Sepsis type: sepsis due to unspecified organism Qualified Code(s): A41.9 - Sepsis, unspecified organism (2) Endocarditis Qualifiers: Endocarditis type: infective Infective endocarditis organism: bacterial Chronicity: unspecified Qualified Code(s): I33.0 - Acute and subacute infective endocarditis (5) DKA (diabetic ketoacidoses) Qualifiers: Diabetes mellitus type: type 2 Diabetes mellitus complication detail: without coma Qualified Code(s): E11.10 - Type 2 diabetes mellitus with ketoacidosis without coma (8) Pancreatitis Qualifiers: Chronicity: acute Pancreatitis type: unspecified pancreatitis type Acute pancreatitis complication: unspecified Qualified Code(s): K85.90 - Acute pancreatitis without necrosis or infection, unspecified <Jen Forbes - Last Filed: 05/11/18 17:10> (1) DKA (diabetic ketoacidoses) Qualifiers: Diabetes mellitus type: type 2 Diabetes mellitus complication detail: without coma Qualified Code(s): E11.10 - Type 2 diabetes mellitus with ketoacidosis without coma (5) Sepsis Qualifiers: Sepsis type: sepsis due to unspecified organism Qualified Code(s): A41.9 - Sepsis, unspecified organism (7) Pancreatitis Qualifiers: Chronicity: acute Pancreatitis type: unspecified pancreatitis type Acute pancreatitis complication: unspecified Qualified Code(s): K85.90 - Acute pancreatitis without necrosis or infection, unspecified (9) Endocarditis Qualifiers: Endocarditis type: infective Infective endocarditis organism: bacterial Chronicity: unspecified Qualified Code(s): I33.0 - Acute and subacute infective endocarditis
[2018-05-11] MEDS: *HR* Rivaroxaban 10 MG TABLET PO SCH (10:26)
[2018-05-11] MEDS: Sulfamethoxazole/Trimeth DS 1 EACH TABLET PO SCH ×2 (10:26→22:35)
[2018-05-11] MEDS: Fenofibrate 54 MG TABLET PO SCH (10:26)
[2018-05-11] MEDS: Ascorbic Acid 500 MG TABLET PO SCH (10:27)
[2018-05-11] MEDS: Nystatin SUSP 5 ML UD.LIQ PO SCH ×4 (10:27→22:35)
[2018-05-11] MEDS: Sennosides/Docusate Sodium TABLET PO SCH ×2 (10:27→22:36)
[2018-05-11] MEDS: Lactobacillus 1 EACH CAP.SPRINK PO SCH ×2 (10:27→22:35)
[2018-05-11] MEDS: Insulin LISPRO 300 UNITS/3 ML VIAL SQ SCH ×7 (10:28→22:35)
[2018-05-11] MEDS: Insulin DETEMIR 100 UNIT/ML X5UNITS SQ SCH ×2 (10:36→22:35)
--- NOTE | 2018-05-11 11:02 | Infectious Disease Progress No ---
Date of Encounter: 05/11/18 Time of Encounter: 09:00 - Assessment and Plan (1) Sepsis Current Visit: Yes Status: Acute Sepsis criteria met on admission: Tachycardia, tachypnea, WBC 49.1 with 96% segmented neutrophils Technically meets sepsis criteria today with HR > 90 and WBC > 12, but continues to improve clinically Afebrile since admission, Tmax 99.5 F on 05/08 Source: bacteremia due to endocarditis, pyelonephritis, and liver abscess Complicated by DKA and pancreatitis on arrival, resolved Causative organism: primarily Enterococcus faecalis (MRSA found on urine culture) Leukocytosis improving WBCs 49.1, 30.2, 20...19.4, 20, 18.5, today 20.2 No bands on CBC differential Neutrophils 96%, 85.2%, 74.5%...65.8%, 63.2%, today 67.1% Lactic acid: 1.3 Lipase: 404 --> 362 BUN 13, Cr 1.1 05/02 urine culture: MRSA with sensitivity to vancomycin 05/02 blood culture: enterococcus faecalis with sensitivity to vancomycin (Yeny/B gene not detected by PCR) 05/04 blood culture: no growth x 1 set --> final 05/08 body fluid culture (Lt kidney): Enterococcus faecalis sensitive to ampicillin, vancomycin, daptomycin, and linezolid 05/02 CXR: No focal lung consolidations, suspicious pulmonary nodules, or pleural effusion 05/02 CT abdomen/pelvis: Heterogeneous areas of decreased perfusion to cortex left kidney, suggestive of acute pyelonephritis; possible perihepatic abscess or nonspecific lesion of hepatic parenchyma below right hemidiaphragm 05/03 MRI abdomen: 3.5 cm x 2.5 cm lesion corresponding with 05/02 CT finding and not seen on 01/04/18 imaging, possibly abscess; 3.3 cm x 2.1 cm lesion left kidney representing abscess or infarction; suspected acute pancreatitis; small bilateral pleural effusions. 05/05 BAILEY: Trileaflet aortic valve. Large mobile echodensity adherent to the Rt coronary cusp measuring 1.4 cm X 0.87 cm. Non-coronary cusp is thickened, can't exclude possible adherent vegetation . 05/10 CT abdomen/pelvis: Posterior renal collection shows interval decrease; improved small bilateral pleural effusions Zosyn 3.375 gm IV Q8H --> stopped 05/07/18 (received 7 days) Vancomycin 1 gm IV Q12H pharmacy dosing --> stopped 05/07/18 (received 7 days) Ampicillin 2 gm IV Q4H, day 5 Rocephin 2 gm IV Q12H, day 5 Bactrim 1 each PO BID, day 5 Nystatin suspension 5 mL PO QID, day 8 Again, technically meeting sepsis criteria (HR > 90 and WBC > 12). Continues to be afebrile and hemodynamically stable. IR performed CT guided aspiration of Lt kidney abscess 05/08/18. Interval decrease of renal and hepatic lesions on repeat CT. Recommendations: - Continue rocephin 2 gm IV Q12H through 06/15/18 (6 weeks) - Continue ampicillin 2 gm IV Q4H through 06/15/18 (6 weeks) - Continue Bactrim 1 each PO BID through 05/16/18 (Antibiotic course, including vancomycin, to total 14 days) - Monitor for signs of hepato- and nephrotoxicity, dose adjust antibiotics Qualifiers: Sepsis type: sepsis due to unspecified organism Qualified Code(s): A41.9 - Sepsis, unspecified organism (2) Endocarditis Current Visit: Yes Status: Acute Meets 2 major Moore criteria: BAILEY with vegetation and Enterococcus on 05/02/18 blood cultures First set negative blood cultures on 05/04/1805/05 BAILEY: Trileaflet aortic valve. Large mobile echodensity adherent to the Rt coronary cusp measuring 1.4 cm X 0.87 cm. Non-coronary cusp is thickened, can't exclude possible adherent vegetation Ampicillin 2 gm IV Q4H, day 5 Rocephin 2 gm IV Q12H, day 5 Recommendations: - Continue ampicillin 2 gm IV Q4H through 06/15/17 (6 weeks from first set negative blood cultures on 05/04/18) - Continue Rocephin 2 gm IV Q12H through 06/15/17 (6 weeks) Qualifiers: Endocarditis type: infective Infective endocarditis organism: bacterial Chronicity: unspecified Qualified Code(s): I33.0 - Acute and subacute infective endocarditis (3) Gram-positive bacteremia Current Visit: Yes Status: Resolved Resolved Suspect this is related to endocarditis, but pyelonephritis and liver abscess may have been contributing 05/02 Blood cultures: enterococcus faecalis with sensitivity to vancomycin (Yeny/B gene not detected by PCR) 05/04 blood culture: no growth to date --> final Recommendations as above (4) Pancreatitis Current Visit: Yes Status: Resolved Qualifiers: Chronicity: acute Pancreatitis type: unspecified pancreatitis type Acute pancreatitis complication: unspecified Qualified Code(s): K85.90 - Acute pancreatitis without necrosis or infection, unspecified (5) Peripheral vascular disease due to secondary diabetes Current Visit: Yes Status: Acute (6) DKA (diabetic ketoacidoses) Current Visit: Yes Status: Resolved Qualifiers: Diabetes mellitus type: type 2 Diabetes mellitus complication detail: without coma Qualified Code(s): E11.10 - Type 2 diabetes mellitus with ketoacidosis without coma (7) Pyelonephritis Current Visit: Yes Status: Acute 05/02 urine culture: MRSA with sensitivity to vancomycin Supporting CT and MRI findings as above Lt renal fluid collection aspirated by IR on 05/08/18--fluid culture grew Enterococcus faecalis Recommendations as above (8) Hepatic lesion Current Visit: Yes Status: Acute As above (9) Elevated troponin Current Visit: Yes Status: Acute - Subjective Interval history: Seen and examined this morning at bedside. He is in no acute distress and appears comfortable in bed. States he feels fine today, no issues overnight. Abdomen not painful unless people push on it--he clearly expressed his frustration with this aspect of his care. He again states he is eager to go home, states he has bills to pay and he will get kicked out of his home and end up "under the bridge." Denies chills, subjective fever, night sweats, abdominal pain. Infect Dis PN-Objective Data - Labs CBC & Chem 7: 05/11/18 05:15 05/11/18 05:15 Labs: Laboratory Results - last 24 hr 05/09/18 05/10/18 05/10/18 21:43 07:47 11:09 WBC RBC Hgb Hct MCV MCH MCHC RDW Plt Count MPV Immature Gran % Seg Neutrophils % Lymphocytes % Monocytes % Eosinophils % Basophils % Neutrophils # Lymphocytes # Monocytes # Eosinophils # Basophils # Sodium Potassium Chloride Carbon Dioxide BUN Creatinine Est GFR ( Amer) Est GFR (Non-Af Amer) BUN/Creatinine Ratio Glucose POC Glucose 180 H 258 H 264 H Calculated Osmolality Calcium 05/10/18 05/11/18 05/11/18 21:26 05:15 05:15 WBC 20.2 H RBC 4.23 Hgb 10.4 L Hct 33.1 L MCV 78.3 L MCH 24.6 L MCHC 31.4 L RDW 16.1 H Plt Count 536 H MPV 10.0 Immature Gran % 1.4 Seg Neutrophils % 67.1 Lymphocytes % 15.4 Monocytes % 13.1 Eosinophils % 2.7 Basophils % 0.3 Neutrophils # 13.6 H Lymphocytes # 3.1 Monocytes # 2.6 H Eosinophils # 0.5 Basophils # 0.1 Sodium 133 L Potassium 5.1 Chloride 100 Carbon Dioxide 29 BUN 13 Creatinine 1.10 Est GFR ( Amer) > 60 Est GFR (Non-Af Amer) > 60 BUN/Creatinine Ratio 12 Glucose 180 H POC Glucose 145 H Calculated Osmolality 281 Calcium 8.9 Cultures: Cultures 05/08/18 13:13 Body Fluid Culture - Final Other-Specify in Comments Enterococcus faecalis 05/04/18 09:29 Blood Culture - Final Peripheral Venipuncture No growth. Final report. 05/04/18 09:29 Blood Culture - Final Peripheral Venipuncture No growth. Final report. 05/02/18 11:29 Urine Culture - Final Urine,Clean Catch Methicillin Resistant S.aureus 05/02/18 15:45 Blood Culture - Final Peripheral Venipuncture Enterococcus faecalis 05/02/18 11:07 Blood Culture - Final Peripheral Venipuncture Enterococcus faecalis Serology 05/02/18 05/02/18 Range/Units 11:29 11:07 Urine Color Yellow (Yellow) Urine Clarity Clear (Clear) Urine pH 5.5 (5.0-8.0) pH Units Ur Specific [place] 1.029 H (1.010-1.025) Urine Protein 30 H (Neg-Trace) mg/dL Urine Glucose (UA) >=1000 H (Normal) mg/dL Urine Ketones >=160 H (Negative) mg/dL Urine Blood Small H (Negative) Urine Nitrite Negative (Negative) Urine Bilirubin Negative (Negative) Urine Urobilinogen Normal (Normal) mg/dL Ur Leukocyte Esterase Small H (Negative) Urine Microscopic RBC 0-3 (0-3) per hpf Urine Microscopic WBC 50-100 H (0-3) per hpf Ur Squamous Epith Cells Few (None-Few) per lpf Urine Bacteria None Seen (None-Few) per hpf Hyaline Casts Few (None-Few) per lpf Ur Culture Indicated? YES A (NO) A. baumannii (PCR) Not Detected (Not Detect) [place] albicans (PCR) Not Detected (Not Detect) C. glabrata (PCR) Not Detected (Not Detect) C. krusei (PCR) Not Detected (Not Detect) C. parapsilosis (PCR) Not Detected (Not Detect) C. tropicalis (PCR) Not Detected (Not Detect) Enterobacteriac sp PCR Not Detected (Not Detect) E. cloacae complex PCR Not Detected (Not Detect) Enterococcus sp PCR DETECTED A (Not Detect) E. coli (PCR) Not Detected (Not Detect) H. influenzae (PCR) Not Detected (Not Detect) Klebsiella oxytoca PCR Not Detected (Not Detect) Klebsiella pneumoniae Not Detected (Not Detect) List. monocytogenes PCR Not Detected (Not Detect) N. meningitidis (PCR) Not Detected (Not Detect) Proteus species (PCR) Not Detected (Not Detect) Serratia marcescens PCR Not Detected (Not Detect) Staphylococcus sp PCR Not Detected (Not Detect) Staph aureus (PCR) Not Detected (Not Detect) mecA-Methicil Res Gene N/A (Not Detect) Streptococcus sp PCR Not Detected (Not Detect) Group A Strep DNA Not Detected (Not Detect) Group B Strep (PCR) Not Detected (Not Detect) Strep pneumoniae (PCR) Not Detected (Not Detect) P. aeruginosa (PCR) Not Detected (Not Detect) Yeny/B-Vanco Res Genes Not Detected (Not Detect) KPC (blaKPC) Detect PCR N/A (Not Detect) - Impressions Impressions Abdomen CT 05/10/18 14:24 IMPRESSION: The study of the parenchyma is very limited without intravenous contrast. The overall extent of low attenuation within the right hepatic lobe dome has decreased. No discrete hepatic dome fluid collection is visualized on the current study. Overall decreased size of posterior left renal collection compatible with a infectious process. Of small bilateral pleural effusions, slightly decreased in size. D/ / Kamryn Peace Cha, MD / Kamryn Peace Cha, MD Interpreting Provider: Kamryn Peace Cha, MD Exam - Constitutional Vitals: Temp Pulse Resp BP Pulse Ox 98.8 F 105 16 112/52 90 05/11/18 07:04 05/11/18 07:04 12/06/18 07:04 05/11/18 07:04 05/11/18 07:04 Exam: General: Vital signs noted, No acute distress, appearance is disheveled and nontoxic HEENT: head normocephalic/atraumatic, EOMI, PERRL, sclera anicteric, moist mucus membranes, edentulous Neck: Supple Cardio: RRR, no murmurs, +S1/S2 Pulm: crackles @ Rt lung base; no rhonci or wheezing, Normal respiratory effort. Abdomen: nontender to light palpation, no rigidity or distention Extremities: Rt AKA, Lt BKA Neuro: AAOx3, no focal deficit, no speech deficit, CN II-XII grossly intact, moves extremities spontaneously Skin: clean, dry, intact Psych: appears to be agitated, answers questions appropriately, cooperative during exam, Consult Discharge Plan - Plan Referrals: NONE,PCP [Primary Care Provider] - Prescriptions: cefTRIAXone [Rocephin] 2,000 mg IVPB Q12HR #70 vial RX: Ampicillin 2 gm IV Q4H #210 vial Sulfamethoxazole/Trimeth DS [Bactrim DS] 1 each PO BID #70 tablet - Attending Attestation I examined this patient and my medical decision-making was reviewed with the Resident Physician. I agree with the documented findings, disposition and treat ment plan as described except to the extent set forth below.
[2018-05-11] MEDS ORDERED: Milk and Molasses Enema 200 ML RC ONE (15:05)
[2018-05-12] MEDS: Ampicillin 2 GM in 0.9 % Sodium Chloride Mini Bag 100 ML IVPB SCH ×4 (00:48→12:34)
[2018-05-12] MEDS: cefTRIAXone 2,000 MG in Water for inj. (sterile) 20 ML 20 ML IVP SCH (05:29)
[2018-05-12] MEDS ORDERED: Ampicillin 2 GM VIAL ONE (05:40)
[2018-05-12 05:51] LABS: Basophils # 0.1 K/mcL (0.0-0.2); Basophils % 0.4 %; Eosinophils # 0.4 K/mcL (0.0-0.6); Eosinophils % 2.4 %; Hematocrit 33.9 % (37.5-50.1); Hemoglobin 10.5 g/dL (12.9-16.9); Immature Granulocytes % 1.8 % (0-4); Lymphocytes # 3.3 K/mcL (0.6-4.6); Lymphocytes % 19.1 %; Mean Corpuscular Hemoglobin 24.2 pg (28.0-33.3); Mean Corpuscular Volume 78.1 fL (83.0-100.0); Mean Platelet Volume 9.7 fL (9.4-12.4); Monocytes # 2.3 K/mcL (0.0-1.3); Monocytes % 13.3 %; Neutrophils # 10.7 K/mcL (1.6-8.9); Platelet Count 560 K/mcL (140-400); Red Blood Count 4.34 M/mcL (4.19-5.50); Red Cell Distribution Width 15.9 % (11.5-14.5)
[2018-05-12 06:36] LABS: BUN/Creatinine Ratio 11 (6-26); Blood Urea Nitrogen 13 mg/dL (6-20); Calcium 8.6 mg/dL (8.6-10.3); Carbon Dioxide 27 mEq/L (23-29); Glucose 182 mg/dL (70-105); eGFR For Non-African Americans > 60 (> 60)
[2018-05-12 06:38] LABS: Chloride 100 mEq/L (98-107); Osmolality,Calculated 283 (280-300); Potassium 4.5 mEq/L (3.5-5.1); Sodium 134 mEq/L (136-145)
[2018-05-12] MEDS: Insulin LISPRO 300 UNITS/3 ML VIAL SQ SCH ×4 (09:22→12:42)
[2018-05-12] MEDS: Sennosides/Docusate Sodium TABLET PO SCH (09:30)
[2018-05-12] MEDS: Nystatin SUSP 5 ML UD.LIQ PO SCH (09:30)
[2018-05-12] MEDS: Fenofibrate 54 MG TABLET PO SCH (09:30)
[2018-05-12] MEDS: Sulfamethoxazole/Trimeth DS 1 EACH TABLET PO SCH (09:30)
[2018-05-12] MEDS: Ascorbic Acid 500 MG TABLET PO SCH (09:30)
[2018-05-12] MEDS: Lactobacillus 1 EACH CAP.SPRINK PO SCH (09:30)
[2018-05-12] MEDS: *HR* Rivaroxaban 10 MG TABLET PO SCH (09:31)
[2018-05-12] MEDS: Insulin DETEMIR 100 UNIT/ML X5UNITS SQ SCH (09:32)
--- NOTE | 2018-05-12 11:10 | Infectious Disease Progress No ---
Date of Encounter: 05/11/18 Time of Encounter: 09:15 - Assessment and Plan (1) Sepsis Current Visit: Yes Status: Acute Sepsis criteria met on admission: Tachycardia, tachypnea, WBC 49.1 with 96% segmented neutrophils Technically meets sepsis criteria today with HR > 90 and WBC > 12, but continues to improve clinically Afebrile since admission, Tmax 99.5 F on 05/08 Source: bacteremia due to endocarditis, pyelonephritis, and liver abscess Complicated by DKA and pancreatitis on arrival, resolved Causative organism: primarily Enterococcus faecalis (MRSA found on urine culture) Leukocytosis improving WBCs 49.1, 30.2, 20....20, 18.5, 20.2, today 17 No bands on CBC differential Neutrophils 96%, 85.2%, 74.5%...63.2%, 67.1%, today 63% Lactic acid: 1.3 Lipase: 404 --> 362 BUN 13, Cr 1.1 05/02 urine culture: MRSA with sensitivity to vancomycin 05/02 blood culture: enterococcus faecalis with sensitivity to vancomycin (Yeny/B gene not detected by PCR) 05/04 blood culture: no growth x 1 set --> final 05/08 body fluid culture (Lt kidney): Enterococcus faecalis sensitive to ampicillin, vancomycin, daptomycin, and linezolid 05/02 CXR: No focal lung consolidations, suspicious pulmonary nodules, or pleural effusion 05/02 CT abdomen/pelvis: Heterogeneous areas of decreased perfusion to cortex left kidney, suggestive of acute pyelonephritis; possible perihepatic abscess or nonspecific lesion of hepatic parenchyma below right hemidiaphragm 05/03 MRI abdomen: 3.5 cm x 2.5 cm lesion corresponding with 05/02 CT finding and not seen on 01/04/18 imaging, possibly abscess; 3.3 cm x 2.1 cm lesion left kidney representing abscess or infarction; suspected acute pancreatitis; small bilateral pleural effusions. 05/05 BAILEY: Trileaflet aortic valve. Large mobile echodensity adherent to the Rt coronary cusp measuring 1.4 cm X 0.87 cm. Non-coronary cusp is thickened, can't exclude possible adherent vegetation . 05/10 CT abdomen/pelvis: Posterior renal collection shows interval decrease; improved small bilateral pleural effusions Zosyn 3.375 gm IV Q8H --> stopped 05/07/18 (received 7 days) Vancomycin 1 gm IV Q12H pharmacy dosing --> stopped 05/07/18 (received 7 days) Ampicillin 2 gm IV Q4H, day 6 Rocephin 2 gm IV Q12H, day 6 Bactrim 1 each PO BID, day 6 Nystatin suspension 5 mL PO QID, day 9 Again, technically meeting sepsis criteria (HR > 90 and WBC > 12). Continues to be afebrile and hemodynamically stable. IR performed CT guided aspiration of Lt kidney abscess 05/08/18. Interval decrease of renal and hepatic lesions on repeat CT. Patient has agreed to go a facility to finish antibiotic course, per my discussion with social work this morning. Will discontinue Nystatin, no thrush seen on exam and patient denies sore throat or odynophagia. Recommendations: - Continue rocephin 2 gm IV Q12H through 06/15/18 (6 weeks) - Continue ampicillin 2 gm IV G6H--BF to transition to ampicillin 12 gm IV Q24H once discharged, continue to treat through 06/15/18 (6 weeks) - Continue Bactrim 1 each PO BID through 05/16/18 (Antibiotic course, including vancomycin, to total 14 days) - Discontinue Nystatin - Monitor for signs of hepato- and nephrotoxicity, dose adjust antibiotics Qualifiers: Sepsis type: sepsis due to unspecified organism Qualified Code(s): A41.9 - Sepsis, unspecified organism (2) Endocarditis Current Visit: Yes Status: Acute Meets 2 major Moore criteria: BAILEY with vegetation and Enterococcus on 05/02/18 blood cultures First set negative blood cultures on 05/04/1805/05 BAILEY: Trileaflet aortic valve. Large mobile echodensity adherent to the Rt coronary cusp measuring 1.4 cm X 0.87 cm. Non-coronary cusp is thickened, can't exclude possible adherent vegetation Recommendations as above Qualifiers: Endocarditis type: infective Infective endocarditis organism: bacterial Chronicity: unspecified Qualified Code(s): I33.0 - Acute and subacute infective endocarditis (3) Gram-positive bacteremia Current Visit: Yes Status: Resolved Resolved Suspect this is related to endocarditis, but pyelonephritis and liver abscess may have been contributing 05/02 Blood cultures: enterococcus faecalis with sensitivity to vancomycin (Yeny/B gene not detected by PCR) 05/04 blood culture: no growth to date --> final Recommendations as above (4) Pancreatitis Current Visit: Yes Status: Resolved Qualifiers: Chronicity: acute Pancreatitis type: unspecified pancreatitis type Acute pancreatitis complication: unspecified Qualified Code(s): K85.90 - Acute pancreatitis without necrosis or infection, unspecified (5) Peripheral vascular disease due to secondary diabetes Current Visit: Yes Status: Acute (6) DKA (diabetic ketoacidoses) Current Visit: Yes Status: Resolved Qualifiers: Diabetes mellitus type: type 2 Diabetes mellitus complication detail: without coma Qualified Code(s): E11.10 - Type 2 diabetes mellitus with ketoacidosis without coma (7) Pyelonephritis Current Visit: Yes Status: Acute 05/02 urine culture: MRSA with sensitivity to vancomycin Supporting CT and MRI findings as above Lt renal fluid collection aspirated by IR on 05/08/18--fluid culture grew Enterococcus faecalis Recommendations as above (8) Hepatic lesion Current Visit: Yes Status: Acute As above (9) Elevated troponin Current Visit: Yes Status: Acute - Subjective Interval history: Seen and examined this morning at bedside, RN also present to dispense morning medications. No complaints at time of my exam, denies abdominal pain. Denies sore throat. No fevers/chills. Infect Dis PN-Objective Data - Labs CBC & Chem 7: 05/12/18 04:00 05/12/18 05:35 Labs: Laboratory Results - last 24 hr 05/11/18 05/11/18 05/11/18 07:09 11:33 16:31 WBC RBC Hgb Hct MCV MCH MCHC RDW Plt Count MPV Immature Gran % Seg Neutrophils % Lymphocytes % Monocytes % Eosinophils % Basophils % Neutrophils # Lymphocytes # Monocytes # Eosinophils # Basophils # Sodium Potassium Chloride Carbon Dioxide BUN Creatinine Est GFR ( Amer) Est GFR (Non-Af Amer) BUN/Creatinine Ratio Glucose POC Glucose 146 H 171 H 183 H Calculated Osmolality Calcium 05/11/18 05/12/18 05/12/18 22:26 04:00 05:35 WBC 17.0 H RBC 4.34 Hgb 10.5 L Hct 33.9 L MCV 78.1 L MCH 24.2 L MCHC 31.0 L RDW 15.9 H Plt Count 560 H MPV 9.7 Immature Gran % 1.8 Seg Neutrophils % 63.0 Lymphocytes % 19.1 Monocytes % 13.3 Eosinophils % 2.4 Basophils % 0.4 Neutrophils # 10.7 H Lymphocytes # 3.3 Monocytes # 2.3 H Eosinophils # 0.4 Basophils # 0.1 Sodium 134 L Potassium 4.5 Chloride 100 Carbon Dioxide 27 BUN 13 Creatinine 1.17 Est GFR ( Amer) > 60 Est GFR (Non-Af Amer) > 60 BUN/Creatinine Ratio 11 Glucose 182 H POC Glucose 191 H Calculated Osmolality 283 Calcium 8.6 05/12/18 08:47 WBC RBC Hgb Hct MCV MCH MCHC RDW Plt Count MPV Immature Gran % Seg Neutrophils % Lymphocytes % Monocytes % Eosinophils % Basophils % Neutrophils # Lymphocytes # Monocytes # Eosinophils # Basophils # Sodium Potassium Chloride Carbon Dioxide BUN Creatinine Est GFR ( Amer) Est GFR (Non-Af Amer) BUN/Creatinine Ratio Glucose POC Glucose 119 H Calculated Osmolality Calcium Cultures: Cultures 05/08/18 13:13 Body Fluid Culture - Final Other-Specify in Comments Enterococcus faecalis 05/04/18 09:29 Blood Culture - Final Peripheral Venipuncture No growth. Final report. 05/04/18 09:29 Blood Culture - Final Peripheral Venipuncture No growth. Final report. 05/02/18 11:29 Urine Culture - Final Urine,Clean Catch Methicillin Resistant S.aureus 05/02/18 15:45 Blood Culture - Final Peripheral Venipuncture Enterococcus faecalis 05/02/18 11:07 Blood Culture - Final Peripheral Venipuncture Enterococcus faecalis Serology 05/02/18 05/02/18 Range/Units 11:29 11:07 Urine Color Yellow (Yellow) Urine Clarity Clear (Clear) Urine pH 5.5 (5.0-8.0) pH Units Ur Specific [place] 1.029 H (1.010-1.025) Urine Protein 30 H (Neg-Trace) mg/dL Urine Glucose (UA) >=1000 H (Normal) mg/dL Urine Ketones >=160 H (Negative) mg/dL Urine Blood Small H (Negative) Urine Nitrite Negative (Negative) Urine Bilirubin Negative (Negative) Urine Urobilinogen Normal (Normal) mg/dL Ur Leukocyte Esterase Small H (Negative) Urine Microscopic RBC 0-3 (0-3) per hpf Urine Microscopic WBC 50-100 H (0-3) per hpf Ur Squamous Epith Cells Few (None-Few) per lpf Urine Bacteria None Seen (None-Few) per hpf Hyaline Casts Few (None-Few) per lpf Ur Culture Indicated? YES A (NO) A. baumannii (PCR) Not Detected (Not Detect) [place] albicans (PCR) Not Detected (Not Detect) C. glabrata (PCR) Not Detected (Not Detect) C. krusei (PCR) Not Detected (Not Detect) C. parapsilosis (PCR) Not Detected (Not Detect) C. tropicalis (PCR) Not Detected (Not Detect) Enterobacteriac sp PCR Not Detected (Not Detect) E. cloacae complex PCR Not Detected (Not Detect) Enterococcus sp PCR DETECTED A (Not Detect) E. coli (PCR) Not Detected (Not Detect) H. influenzae (PCR) Not Detected (Not Detect) Klebsiella oxytoca PCR Not Detected (Not Detect) Klebsiella pneumoniae Not Detected (Not Detect) List. monocytogenes PCR Not Detected (Not Detect) N. meningitidis (PCR) Not Detected (Not Detect) Proteus species (PCR) Not Detected (Not Detect) Serratia marcescens PCR Not Detected (Not Detect) Staphylococcus sp PCR Not Detected (Not Detect) Staph aureus (PCR) Not Detected (Not Detect) mecA-Methicil Res Gene N/A (Not Detect) Streptococcus sp PCR Not Detected (Not Detect) Group A Strep DNA Not Detected (Not Detect) Group B Strep (PCR) Not Detected (Not Detect) Strep pneumoniae (PCR) Not Detected (Not Detect) P. aeruginosa (PCR) Not Detected (Not Detect) Yeny/B-Vanco Res Genes Not Detected (Not Detect) KPC (blaKPC) Detect PCR N/A (Not Detect) Exam - Constitutional Vitals: Temp Pulse Resp BP Pulse Ox 97.3 F L 103 20 110/45 97 05/12/18 08:24 05/12/18 08:24 05/12/18 08:24 05/12/18 08:24 05/12/18 08:24 Exam: General: AAOx3, No acute distress, appear comfortable HEENT: EOMI, PERRL, sclera anicteric, moist mucus membranes, no pharyngeal erythema, oral thrush appears to be resolved Neck: Supple Cardio: RRR, no murmurs, +S1/S2 Pulm: clear to anterior auscultation bilaterally, no wheezing, rhonchi, rales. Normal respiratory effort. Abdomen: soft, nontender, BS+, nondistended Extremities: Rt AKA, Lt BKA Neuro: AAOx3, no focal deficit, no speech deficit, answers questions appr opriately, CN II-XII grossly intact, moves extremities spontaneously Skin: clean, dry, intact, no visible rashes Psych: Appropriate mood and affect. Cooperative with exam Consult Discharge Plan - Plan Referrals: NONE,PCP [Primary Care Provider] - Prescriptions: cefTRIAXone [Rocephin] 2,000 mg IVPB Q12HR #70 vial RX: Ampicillin 2 gm IV Q4H #210 vial Sulfamethoxazole/Trimeth DS [Bactrim DS] 1 each PO BID #70 tablet - Attending Attestation I examined this patient and my medical decision-making was reviewed with the Resident Physician. I agree with the documented findings, disposition and treatment plan as described except to the extent set forth below.
[2018-05-12 12:52] VITALS: BP 103/75
--- NOTE | 2018-05-12 14:19 | Discharge Summary ---
- NOTES TO OUTPATIENT PROVIDER Notes to Outpatient Provider: Follow-up Liver and Renal function. Follow-up with Infectious Disease in two weeks. Date of Encounter: 05/12/18 Time of Encounter: 14:14 - Discharge Diagnosis (1) DKA (diabetic ketoacidoses) Priority: Primary Status: Resolved Qualifiers: Diabetes mellitus type: type 2 Diabetes mellitus complication detail: without coma Qualified Code(s): E11.10 - Type 2 diabetes mellitus with ketoacidosis without coma (2) Sepsis Priority: Secondary Status: Acute Qualifiers: Sepsis type: sepsis due to unspecified organism Qualified Code(s): A41.9 - Sepsis, unspecified organism (3) Pyelonephritis Priority: Secondary Status: Acute (4) Hepatic lesion Priority: Secondary Status: Acute (5) Elevated troponin Priority: Secondary Status: Acute (6) Gram-positive bacteremia Priority: Secondary Status: Resolved (7) Pancreatitis Priority: Secondary Status: Resolved Qualifiers: Chronicity: acute Pancreatitis type: unspecified pancreatitis type Acute pancreatitis complication: unspecified Qualified Code(s): K85.90 - Acute pancreatitis without necrosis or infection, unspecified (8) Peripheral vascular disease due to secondary diabetes Priority: Secondary Status: Acute (9) Endocarditis Priority: Secondary Status: Acute Qualifiers: Endocarditis type: infective Infective endocarditis organism: bacterial Chronicity: unspecified Qualified Code(s): I33.0 - Acute and subacute infective endocarditis Hospital course: Mr. Slaughter is a 58 year old male with PMHx of CAD with stents, CABG, CHF, PVD, DVT, HTN, stroke, seizures, pancreatitis, DMII, insulin dependent, MRSA infections, and splenectomy admitted from the ED for DKA, sepsis, and elevated troponin. States he has been having abdominal pain for 2 weeks with nausea and vomiting. He also admits to dysuria and bilateral flank pain. Chest pain that occurs intermittently over the past 3 months, unable to provide characteristics of pain and states currently asymptomatic. Denies alcohol use. He has a history of medication non-compliance. Workup in ED showed patient to be in DKA and acute pancreatitis. He was started on an insulin drip and DKA treatment protocol. There was suspicion of complicated UTI based on his symptoms and also CT abdomen pelvis showed decreased perfusion in cortex of left kidney. It also showed a hepatic lesion/abscess. He had elevated troponin in the ED of 0.27, an EKG showed normal sinus rhythm with no ST or T wave changes. Patient was admitted to the ICU due to severity. His DKA and pancreatitis resolved with treatment with DKA protocol. He was started on low dose heparin ACS protocol. Troponin peaked at 1.65 and eventually dropped to 0.27. Cardiology team evaluated patient and no further cardiac evaluation was needed at this time as this was unlikely due to ACS, more likely patient acute illness. He was emperically started on Zosyn and Vancomycin for severe sepsis. The suspected source of severe sepsis was between the perihepatic lesion and/or pyelonephritis, renal abscess. Blood cultures from 05/02/18 grew Enterococcus faecalis, and urine cultures grew MRSA. IR was consulted for draining liver abscess and kidney abscess. Kidney abscess was successfully drained. Liver abscess could not be drained because of location of lesion near the diaphragm. A BAILEY was done to look for seeding, and on 05/05 BAILEY showed Trileaflet aortic alve with large mobile echodensity measuring 1.4 cm. After sensitivities resulted, patient was started on Bactrim, Rocephin, and ampicillin. A repeat CT abdomen/pelvis showed improvement of liver abscess. Patient also was clinically improving. His WBC on admission was 49.1k and now is down to 18k, he has remained afebrile, and vital signs improved, though he does have some tachycardia that seems to be unrelated to infection. He is being discharged to ECF to complete course of Bactrim, Rocephin, and Ampicillin. He is scheduled to follow-up with ID in 2 weeks. - Time Spent with Patient Total time spent providing and/or coordinating discharge services: - Discharge Medications Prescriptions: cefTRIAXone [Rocephin] 2,000 mg IVPB Q12HR #70 vial Ampicillin 2 gm IV Q4H #210 vial Home Medications: Clopidogrel [Plavix] 75 mg PO DAILY 02/04/15 [History] Simvastatin [Zocor] 40 mg PO HS 08/06/16 [History] Fenofibrate Nanocrystallized [Tricor] 145 mg PO DAILY 02/09/17 [History] Phenytoin ER [Dilantin ER] 100 mg PO TID #30 capsule 04/18/17 [Rx] Sertraline [Zoloft] 100 mg PO DAILY #30 tablet 04/18/17 [Rx] Tizanidine HCl 4 mg PO TID PRN #10 tablet 04/18/17 [Rx] Rivaroxaban [Xarelto] 20 mg PO DAILY #30 tablet 07/11/17 [Rx] Gabapentin [Neurontin] 800 mg PO TID 08/11/17 [History] Amitriptyline [Elavil] 25 mg PO HS 12/23/17 [History] Ascorbic Acid [Vitamin C] 500 mg PO DAILY #30 tablet.er 01/08/18 [Rx] Omeprazole [PriLOSEC] 40 mg PO DAILY PRN #0 01/08/18 [Rx] Insulin ASPART [Novolog Flexpen] 0 unit SQ TID 05/02/18 [History] Insulin Degludec [Tresiba Flextouch U-200] 40 unit SQ BID 05/02/18 [History] Lisinopril 2.5 mg PO DAILY 05/02/18 [History] Nitroglycerin [Nitrostat] 0.4 mg SL Q5M PRN 05/02/18 [History] Ampicillin 2 gm IV Q4H #210 vial 05/11/18 [Rx] cefTRIAXone [Rocephin] 2,000 mg IVPB Q12HR #70 vial 05/11/18 [Rx] Lactobacillus [Culturelle] 1 each PO BID cap.sprink 05/12/18 [Rx] Sulfamethoxazole/Trimeth DS [Bactrim Ds] 1 each PO BID #8 tablet 05/12/18 [Rx] Allergies/Adverse Reactions: Allergy/AdvReac Type Severity Reaction Status Date / Time No Known Allergies Allergy Verified 08/16/17 10:17 Date of admission: 05/02/18 15:35 Primary care physician: PCP NONE Consults: 05/02/18 11:42 Midline [Consult to Invasive Line Access Team] [CONS] Stat Reason for Consult: difficult access Line Type: Midline 05/02/18 12:39 Consult to Invasive Line Access Team [CONS] Routine Reason for Consult: poor access Line Type: EPIV 05/02/18 16:39 Consult for Pharmacy Education [CONS] Routine Reason for Consult: DKA Call Completed: No Consult to Industrial Ecologist [CONS] Stat Reason for SW Consult: DKA, medication compliance, chronic wounds 05/02/18 17:24 Consult to Urology [CONS] Stat Consulting Provider: Urology [place] Reason for Consult: alfaro cath placement Time Notified: 17:24 Call Completed: Yes 05/02/18 17:39 Consult to Infectious Diseases [CONS] Stat Consulting Provider: Infectious Disease [place] Reason for Consult: pyelonephritis, liver abscess vs lesion, chronic wounds Time Notified: 17:40 Call Completed: Yes 05/04/18 16:42 Consult to Interventional Radiology [CONS] Routine Consulting Provider: Radiology Interventional [place] Reason for Consult: possible liver abscess and renal abscess Call Completed: No 05/08/18 08:51 Consult to Speech Therapy [CONS] Routine Comment: Evaluate, develop and implement POC Reason for Consult: Pt states something feels "stuck" when he eats and having coughing episodes with food Time Notified: 08:52 Call Completed: Yes 05/09/18 09:16 Consult to Occupational Therapy [CONS] Routine Comment: Evaluate, develop and implement POC Reason for Consult: need recs for PT/OT, possible SNF upon discharge Does patient have active BEDREST order?: No Is patient medically & hemodynamically stable?: Yes Patient assessed for mobility or mobilized this visit?: No Consult to Physical Therapy [CONS] Routine Comment: Evaluate, develop and implement POC Reason for Consult: need recs for PT/OT, possible SNF upon discharge Does patient have active BEDREST order?: No Is patient medically & hemodynamically stable?: Yes Patient assessed for mobility or mobilized this visit?: No 05/10/18 11:40 Consult to Invasive Line Access Team [CONS] Routine Reason for Consult: home atb Line Type: Midline Discharging clinician: Jen Forbes - Constitutional Vitals: Temp Pulse Resp BP Pulse Ox 98.1 F 108 24 103/75 97 05/12/18 12:48 05/12/18 12:48 05/12/18 12:48 05/12/18 12:48 05/12/18 12:48 Exam: General: Patient is alert, no acute distress, oriented x 3 Respiratory: Good respiratory effort. no wheezing noted. mild right lower lobe rales. Cardiovascular: Regular rate and rhythm. s1 and s2 normal systolic murmur present. Abdomen: Abdomen is soft, mild mid abdominal tenderness to palpation in right upper quadrant. Bowel sounds are present Musculoskeletal: Status post right AKA and left BKA Skin: warm, dry, intact. Extremities: left below knee amputation, right above knee amputation with no signs of erythema, infection, or rash Neuro: Alert oriented x 3 normal cranial nerves, no focal deficits - Patient Status Disposition: Transfer SNF Condition: Good Functional capacity at discharge: wheelchair bound Overall status at discharge: patient is progressing back to baseline - Discharge Instructions Follow Up With: NONE,PCP [Primary Care Provider] - - Diet and Activity Activity: as per physical therapy Diet: diabetic diet, low fat, low cholesterol, low salt diet
--- NOTE | 2018-05-12 14:46 | Physician Discharge Referral ---
ExtendedCare Referral Info Provider in Charge after Transfer: Other Institutional Level of Care: Skilled - Diagnosis (1) DKA (diabetic ketoacidoses) Priority: Primary Status: Resolved (2) Sepsis Priority: Secondary Status: Acute (3) Pyelonephritis Priority: Secondary Status: Acute (4) Hepatic lesion Priority: Secondary Status: Acute (5) Elevated troponin Priority: Secondary Status: Acute (6) Gram-positive bacteremia Priority: Secondary Status: Resolved (7) Pancreatitis Priority: Secondary Status: Resolved (8) Peripheral vascular disease due to secondary diabetes Priority: Secondary Status: Acute (9) Endocarditis Priority: Secondary Status: Acute - Transfer Medications Prescriptions: cefTRIAXone [Rocephin] 2,000 mg IVPB Q12HR #70 vial Ampicillin 2 gm IV Q4H #210 vial Home Medications: Clopidogrel [Plavix] 75 mg PO DAILY 02/04/15 [History] Simvastatin [Zocor] 40 mg PO HS 08/06/16 [History] Fenofibrate Nanocrystallized [Tricor] 145 mg PO DAILY 02/09/17 [History] Phenytoin ER [Dilantin ER] 100 mg PO TID #30 capsule 04/18/17 [Rx] Sertraline [Zoloft] 100 mg PO DAILY #30 tablet 04/18/17 [Rx] Tizanidine HCl 4 mg PO TID PRN #10 tablet 04/18/17 [Rx] Rivaroxaban [Xarelto] 20 mg PO DAILY #30 tablet 07/11/17 [Rx] Gabapentin [Neurontin] 800 mg PO TID 08/11/17 [History] Amitriptyline [Elavil] 25 mg PO HS 12/23/17 [History] Ascorbic Acid [Vitamin C] 500 mg PO DAILY #30 tablet.er 01/08/18 [Rx] Omeprazole [PriLOSEC] 40 mg PO DAILY PRN #0 01/08/18 [Rx] Insulin ASPART [Novolog Flexpen] 0 unit SQ TID 05/02/18 [History] Insulin Degludec [Tresiba Flextouch U-200] 40 unit SQ BID 05/02/18 [History] Lisinopril 2.5 mg PO DAILY 05/02/18 [History] Nitroglycerin [Nitrostat] 0.4 mg SL Q5M PRN 05/02/18 [History] Ampicillin 2 gm IV Q4H #210 vial 05/11/18 [Rx] cefTRIAXone [Rocephin] 2,000 mg IVPB Q12HR #70 vial 05/11/18 [Rx] Lactobacillus [Culturelle] 1 each PO BID cap.sprink 05/12/18 [Rx] Sulfamethoxazole/Trimeth DS [Bactrim Ds] 1 each PO BID #8 tablet 05/12/18 [Rx] Allergies/Adverse Reactions: Allergy/AdvReac Type Severity Reaction Status Date / Time No Known Allergies Allergy Verified 08/16/17 10:17 - Respiratory Orders Smoking Cessation: Smoking cessation has been advised. For more information, call the [place] Tobacco Quit Line at 7-711-IKWN-NOW. - Advance Directives Code Status: Full Code - Mobility Orders Other (as per pT) - Rehabiliation Orders Rehab Potential: Fair Rehab Orders: Evaluation for Physical Therapy, Evaluation for Occupational Therapy - Treatments Skin tear care topically daily PRN per policy CERTIFICATION: I certify that the transfer of the above named patient to an Extended Care Facility is necessary for the continuing treatment of the diagnosis listed. The above information is true and accurate reflection of patient's current condition. Confidential - Redisclosure prohibited without a patient's written consent.
== END 2018-05-12 17:11 | DRG 871 ==
LOC: EMEROOARM 10:26 → SUATTDRO 15:35 → ICNU 15:35 → 2NENU 05-03 18:21
PROVIDERS: ADMIT Internal Medicine Pulmonary Disease; ATTEND Student in an Organized Health Care Education/Training Program
PROC: IRLIVER (2018-05-08 12:00)

== ENCOUNTER 2019-04-20 10:39 | Inpatient (IN) ==
[2019-04-20] MEDS ORDERED: levoFLOXacin 750 MG/150 ML 750 MG/150 ML BAG IVPB ONE (10:49)
[2019-04-20] MEDS ORDERED: Piperacillin/Tazobactam 3.375 GM in Water for inj. (sterile) 20 ML IVP ONE (10:49)
[2019-04-20] MEDS ORDERED: Isovue-370 500 ML BOTTLE IVP ONE ×2 (10:51→12:52)
[2019-04-20 11:07] LABS: Basophils # 0.1 K/mcL (0.0-0.2); Basophils % 0.4 %; Eosinophils # 0.4 K/mcL (0.0-0.6); Eosinophils % 2.5 %; Hematocrit 42.1 % (37.5-50.1); Hemoglobin 13.5 g/dL (12.9-16.9); Immature Granulocytes % 0.9 % (0-4); Lymphocytes % 21.8 %; Mean Corpuscular HGB Conc 32.1 g/dL (31.6-35.5); Mean Corpuscular Hemoglobin 28.6 pg (28.0-33.3); Mean Corpuscular Volume 89.2 fL (83.0-100.0); Mean Platelet Volume 10.5 fL (9.4-12.4); Monocytes # 1.6 K/mcL (0.0-1.3); Monocytes % 11.3 %; Neutrophils # 8.8 K/mcL (1.6-8.9); Platelet Count 406 K/mcL (140-400); Red Blood Count 4.72 M/mcL (4.19-5.50); Red Cell Distribution Width 14.8 % (11.5-14.5); Segmented Neutrophils % 63.1 %
[2019-04-20] MEDS: 0.9 % Sodium Chloride 1,000 ML IVC SCH ×2 (11:14→11:17)
[2019-04-20 11:16] LABS: INR 1.8; Prothrombin Time 19.9 Seconds (9.4-12.1)
[2019-04-20 11:19] LABS: Activated Partial Thrombo Time 50.2 Seconds (26.0-36.0)
[2019-04-20 11:24] LABS: Bilirubin,Urine Negative (Negative); Blood,Urine Negative (Negative); Clarity,Urine Clear (Clear); Color,Urine Yellow (Yellow); Glucose,Urine (UA) >=1000 mg/dL (Normal); Ketones,Urine Negative (Negative); Leukocyte Esterase,Urine Negative (Negative); Nitrite,Urine Negative (Negative); PH,Urine 6.5 pH Units (5.0-8.0); Protein,Urine Negative (Neg-Trace); Specific Gravity,Urine 1.023 (1.010-1.025); Urobilinogen,Urine Normal (Normal)
[2019-04-20 11:27] LABS: Alanine Aminotransferase 13 Units/L (7-52); Albumin 3.5 g/dL (3.5-5.7); Albumin/Globulin Ratio 1.5 (1.1-2.2); Alkaline Phosphatase 59 Units/L (34-104); Aspartate Amino Transferase 10 Units/L (13-39); BUN/Creatinine Ratio 19 (6-26); Bilirubin,Direct 0.1 mg/dL (0.0-0.2); Bilirubin,Indirect 0.2 mg/dL (0.0-1.0); Bilirubin,Total 0.3 mg/dL (0.3-1.0); Blood Urea Nitrogen 33 mg/dL (6-20); Calcium 8.5 mg/dL (8.6-10.3); Carbon Dioxide 23 mEq/L (23-29); Chloride 106 mEq/L (98-107); Globulin 2.4 g/dL (2.4-3.5); Glucose 103 mg/dL (70-105); Osmolality,Calculated 294 (280-300); Phosphorous 3.1 mg/dL (2.7-4.5); Sodium 138 mEq/L (136-145); Total Protein 5.9 g/dL (6.4-8.9); Troponin I < 0.03 ng/mL (< 0.04); eGFR For African Americans 48 (> 60); eGFR For Non-African Americans 39 (> 60)
[2019-04-20] MEDS ORDERED: methylPREDNISolone 125 MG/2 ML VIAL IVP ONE (13:26)
[2019-04-20 13:33] LABS: VBG HCO3 22 mEq/L (21-27); VBG PCO2 44 mmHg (41-51); VBG PO2 236 mmHg (25-50)
[2019-04-20 16:31] LABS: Thyroid Stimulating Hormone 1.203 mcIU/mL (0.340-5.600)
[2019-04-20] MEDS ORDERED: Naloxone 0.4 MG/ML INJ IVP PRN (16:35)
[2019-04-20 17:17] LABS: Phenytoin (Dilantin) 1.9 mcg/mL (10.0-20.0)
[2019-04-20] MEDS ORDERED: tiZANidine 4 MG TABLET PO PRN (18:40)
[2019-04-20] MEDS: Gabapentin 400 MG CAPSULE PO SCH (22:35)
[2019-04-20] MEDS: Insulin DETEMIR 100 UNIT/ML X5UNITS SQ SCH (23:08)
[2019-04-21 03:30] LABS: Basophils % 0.2 %; Hematocrit 42.8 % (37.5-50.1); Hemoglobin 13.2 g/dL (12.9-16.9); Lymphocytes # 1.8 K/mcL (0.6-4.6); Lymphocytes % 9.5 %; Mean Corpuscular HGB Conc 30.8 g/dL (31.6-35.5); Mean Corpuscular Hemoglobin 28.7 pg (28.0-33.3); Mean Platelet Volume 10.8 fL (9.4-12.4); Monocytes # 0.5 K/mcL (0.0-1.3); Monocytes % 2.9 %; Neutrophils # 16.2 K/mcL (1.6-8.9); Platelet Count 344 K/mcL (140-400); Red Cell Distribution Width 14.9 % (11.5-14.5); Segmented Neutrophils % 86.4 %; White Blood Count 18.8 K/mcL (4.3-11.1)
[2019-04-21 04:46] LABS: BUN/Creatinine Ratio 23 (6-26); Blood Urea Nitrogen 34 mg/dL (6-20); Calcium 7.8 mg/dL (8.6-10.3); Carbon Dioxide 17 mEq/L (23-29); Chloride 107 mEq/L (98-107); Glucose 524 mg/dL (70-105); Osmolality,Calculated 309 (280-300); Potassium 5.1 mEq/L (3.5-5.1); Sodium 134 mEq/L (136-145); eGFR For African Americans > 60 (> 60); eGFR For Non-African Americans 50 (> 60)
[2019-04-21] MEDS ORDERED: Insulin LISPRO 300 UNITS/3 ML VIAL SQ ONE (04:50)
[2019-04-21] MEDS ORDERED: Dextrose Gel 15 GM/37.5 ML TUBE PO PRN ×2 (04:52)
[2019-04-21] MEDS ORDERED: *HR* Dextrose 50 % in Water (Syg) 50 ML SYRINGE IVP PRN (04:52)
[2019-04-21] MEDS ORDERED: D5% in Water 1,000 ML IVC PRN (04:52)
[2019-04-21] MEDS: Insulin LISPRO 300 UNITS/3 ML VIAL SQ SCH ×5 (08:44→20:15)
[2019-04-21] MEDS: 0.9 % Sodium Chloride 1,000 ML IVC SCH ×2 (08:46→19:08)
[2019-04-21] MEDS: Piperacillin/Tazobactam 3.375 GM in 0.9 % Sodium Chloride Mini Bag 100 ML IVPB SCH ×3 (08:46→23:56)
[2019-04-21] MEDS: Gabapentin 400 MG CAPSULE PO SCH ×3 (08:47→20:13)
[2019-04-21] MEDS: *HR* Rivaroxaban 10 MG TABLET PO SCH (08:47)
[2019-04-21] MEDS: Insulin DETEMIR 100 UNIT/ML X5UNITS SQ SCH (20:14)
[2019-04-21] MEDS ORDERED: *HR* HYDROcodone/Acet 5/325 mg TABLET PO ONE (20:33)
[2019-04-22 05:45] LABS: Basophils # 0.1 K/mcL (0.0-0.2); Basophils % 0.3 %; Eosinophils # 0.3 K/mcL (0.0-0.6); Eosinophils % 1.8 %; Hemoglobin 13.1 g/dL (12.9-16.9); Immature Granulocytes % 0.8 % (0-4); Lymphocytes # 4.1 K/mcL (0.6-4.6); Lymphocytes % 24.3 %; Mean Corpuscular HGB Conc 31.2 g/dL (31.6-35.5); Mean Corpuscular Hemoglobin 28.7 pg (28.0-33.3); Mean Corpuscular Volume 91.9 fL (83.0-100.0); Mean Platelet Volume 10.7 fL (9.4-12.4); Monocytes # 1.5 K/mcL (0.0-1.3); Monocytes % 8.5 %; Neutrophils # 10.9 K/mcL (1.6-8.9); Platelet Count 367 K/mcL (140-400); Red Blood Count 4.57 M/mcL (4.19-5.50); Segmented Neutrophils % 64.3 %
[2019-04-22 06:01] LABS: BUN/Creatinine Ratio 20 (6-26); Blood Urea Nitrogen 24 mg/dL (6-20); Calcium 8.3 mg/dL (8.6-10.3); Carbon Dioxide 22 mEq/L (23-29); Chloride 108 mEq/L (98-107); Glucose 298 mg/dL (70-105); Osmolality,Calculated 301 (280-300); Potassium 4.8 mEq/L (3.5-5.1); Sodium 138 mEq/L (136-145); eGFR For African Americans > 60 (> 60); eGFR For Non-African Americans > 60 (> 60)
[2019-04-22] MEDS: *HR* Rivaroxaban 10 MG TABLET PO SCH (08:43)
[2019-04-22] MEDS: Piperacillin/Tazobactam 3.375 GM in 0.9 % Sodium Chloride Mini Bag 100 ML IVPB SCH ×3 (08:43→23:29)
[2019-04-22] MEDS: Gabapentin 400 MG CAPSULE PO SCH ×3 (08:43→20:15)
[2019-04-22] MEDS: Insulin LISPRO 300 UNITS/3 ML VIAL SQ SCH ×4 (08:45→20:19)
[2019-04-22] MEDS ORDERED: *HR* HYDROcodone/Acet 5/325 mg TABLET PO ONE (20:13)
[2019-04-22] MEDS: Insulin DETEMIR 100 UNIT/ML X5UNITS SQ SCH (20:17)
[2019-04-23] MEDS ORDERED: Insulin Human Regular 10 UNIT in 0.9 % Sodium Chloride 10 ML IV ONE (00:34)
[2019-04-23 01:56] LABS: Basophils # 0.1 K/mcL (0.0-0.2); Basophils % 0.4 %; Eosinophils # 0.3 K/mcL (0.0-0.6); Eosinophils % 1.6 %; Hematocrit 44.9 % (37.5-50.1); Hemoglobin 14.2 g/dL (12.9-16.9); Immature Granulocytes % 0.7 % (0-4); Lymphocytes # 3.8 K/mcL (0.6-4.6); Mean Corpuscular HGB Conc 31.6 g/dL (31.6-35.5); Mean Corpuscular Hemoglobin 28.4 pg (28.0-33.3); Mean Corpuscular Volume 89.8 fL (83.0-100.0); Mean Platelet Volume 11.2 fL (9.4-12.4); Monocytes # 2.1 K/mcL (0.0-1.3); Monocytes % 10.4 %; Neutrophils # 13.5 K/mcL (1.6-8.9); Platelet Count 386 K/mcL (140-400); Red Cell Distribution Width 14.7 % (11.5-14.5); Segmented Neutrophils % 67.9 %; White Blood Count 19.8 K/mcL (4.3-11.1)
[2019-04-23 02:16] LABS: Calcium 9.1 mg/dL (8.6-10.3); Potassium 4.8 mEq/L (3.5-5.1)
[2019-04-23] MEDS ORDERED: 0.9 % Sodium Chloride 1,000 ML IVC SCH (07:30)
[2019-04-23] MEDS ORDERED: Aminoglycoside Consult 1 EACH MC ONE (07:39)
[2019-04-23] MEDS: Piperacillin/Tazobactam 3.375 GM in 0.9 % Sodium Chloride Mini Bag 100 ML IVPB SCH ×2 (08:02→15:14)
[2019-04-23] MEDS: *HR* Rivaroxaban 10 MG TABLET PO SCH (08:13)
[2019-04-23] MEDS: Gabapentin 400 MG CAPSULE PO SCH ×3 (08:13→20:10)
[2019-04-23] MEDS: Insulin LISPRO 300 UNITS/3 ML VIAL SQ SCH ×5 (08:23→20:11)
[2019-04-23] MEDS ORDERED: Insulin DETEMIR 100 UNIT/ML X5UNITS SQ SCH (21:00)
[2019-04-24] MEDS: Piperacillin/Tazobactam 3.375 GM in 0.9 % Sodium Chloride Mini Bag 100 ML IVPB SCH (01:45)
[2019-04-24] MEDS ORDERED: Doxycycline 100 MG in 0.9 % Sodium Chloride Mini Bag 100 ML IVPB SCH (06:00)
[2019-04-24 06:03] LABS: Basophils # 0.1 K/mcL (0.0-0.2); Basophils % 0.5 %; Eosinophils # 0.5 K/mcL (0.0-0.6); Eosinophils % 2.5 %; Hematocrit 44.8 % (37.5-50.1); Hemoglobin 14.5 g/dL (12.9-16.9); Immature Granulocytes % 1.1 % (0-4); Lymphocytes % 22.2 %; Mean Corpuscular HGB Conc 32.4 g/dL (31.6-35.5); Mean Corpuscular Hemoglobin 28.3 pg (28.0-33.3); Mean Corpuscular Volume 87.5 fL (83.0-100.0); Mean Platelet Volume 10.3 fL (9.4-12.4); Monocytes # 1.7 K/mcL (0.0-1.3); Monocytes % 9.8 %; Neutrophils # 11.4 K/mcL (1.6-8.9); Platelet Count 360 K/mcL (140-400); Red Blood Count 5.12 M/mcL (4.19-5.50); Red Cell Distribution Width 14.4 % (11.5-14.5); Segmented Neutrophils % 63.9 %; White Blood Count 17.8 K/mcL (4.3-11.1)
[2019-04-24 06:23] LABS: BUN/Creatinine Ratio 29 (6-26); Blood Urea Nitrogen 30 mg/dL (6-20); Calcium 9.2 mg/dL (8.6-10.3); Carbon Dioxide 26 mEq/L (23-29); Chloride 103 mEq/L (98-107); Glucose 136 mg/dL (70-105); Osmolality,Calculated 292 (280-300); Potassium 4.3 mEq/L (3.5-5.1); Sodium 137 mEq/L (136-145); eGFR For African Americans > 60 (> 60); eGFR For Non-African Americans > 60 (> 60)
[2019-04-24 07:28] VITALS: BP 112/93
[2019-04-24] MEDS: Insulin LISPRO 300 UNITS/3 ML VIAL SQ SCH ×4 (07:49→12:06)
[2019-04-24] MEDS: *HR* Rivaroxaban 10 MG TABLET PO SCH (08:09)
[2019-04-24] MEDS: Gabapentin 400 MG CAPSULE PO SCH (08:09)
[2019-04-24] MEDS ORDERED: cephALEXin 500 MG CAPSULE PO SCH (09:00)
[2019-04-24] MEDS ORDERED: FLU Vac QV 19-20 (6Month+)/PF 0.5 ML SYRINGE IM ONE (10:45)
== END 2019-04-24 15:46 | disposition home health service (06) | DRG 564 ==
LOC: 2NNU 10:39 → EMEROOARM 10:39 → OBSVTOIN 16:56 → SUATTDRO 16:56 → 2NNU 19:48
PROVIDERS: ADMIT Internal Medicine; ATTEND Internal Medicine

== ENCOUNTER 2019-09-13 12:59 | Inpatient (IN) ==
[2019-09-13] MEDS ORDERED: Piperacillin/Tazobactam 3.375 GM in 0.9 % Sodium Chloride Mini Bag 100 ML IVPB ONE (13:29)
[2019-09-13 13:41] LABS: Basophils # 0.1 K/mcL (0.0-0.2); Basophils % 0.3 %; Eosinophils # 0.2 K/mcL (0.0-0.6); Hemoglobin 6.3 g/dL (12.9-16.9); Immature Granulocytes % 1.4 % (0-4); Lymphocytes % 15.3 %; Mean Corpuscular HGB Conc 31.5 g/dL (31.6-35.5); Mean Corpuscular Hemoglobin 27.8 pg (28.0-33.3); Mean Corpuscular Volume 88.1 fL (83.0-100.0); Mean Platelet Volume 11.3 fL (9.4-12.4); Monocytes # 1.4 K/mcL (0.0-1.3); Neutrophils # 14.6 K/mcL (1.6-8.9); Platelet Count 247 K/mcL (140-400); Red Blood Count 2.27 M/mcL (4.19-5.50); Red Cell Distribution Width 16.6 % (11.5-14.5); White Blood Count 19.5 K/mcL (4.3-11.1)
[2019-09-13 13:49] LABS: INR 1.6; Prothrombin Time 17.8 Seconds (9.4-12.1)
[2019-09-13 14:01] LABS: Potassium 4.1 mEq/L (3.5-5.1)
[2019-09-13] MEDS ORDERED: 0.9 % Sodium Chloride 1,000 ML IVC ONE (14:01)
[2019-09-13] MEDS ORDERED: Pantoprazole 80 MG in 0.9 % Sodium Chloride 50 ML IVPB ONE (14:02)
[2019-09-13 14:08] LABS: Albumin 3.5 g/dL (3.5-5.7); Albumin/Globulin Ratio 1.9 (1.1-2.2); Bilirubin,Direct 0.1 mg/dL (0.0-0.2); Bilirubin,Indirect 0.3 mg/dL (0.0-1.0); Bilirubin,Total 0.4 mg/dL (0.3-1.0); Globulin 1.8 g/dL (2.4-3.5); Total Protein 5.3 g/dL (6.4-8.9)
[2019-09-13] MEDS ORDERED: 0.9 % Sodium Chloride 250 ML ONE (14:20)
[2019-09-13] MEDS ORDERED: HUM PROTHROMBIN CPLX IVPB ONE ×2 (14:30→15:00)
[2019-09-13] MEDS ORDERED: WATER FOR INJ IVPB ONE ×2 (14:30→15:00)
[2019-09-13] MEDS ORDERED: [UNRECOGNIZED DRUG - OTHER] IVPB ONE (14:30)
[2019-09-13] MEDS ORDERED: [UNRECOGNIZED DRUG - OTHER] IVPB ONE (15:00)
[2019-09-13] MEDS ORDERED: Naloxone 0.4 MG/ML INJ IVP PRN (16:00)
[2019-09-13] MEDS ORDERED: D5% in Water 1,000 ML IVC PRN (16:18)
[2019-09-13] MEDS ORDERED: *HR* Dextrose 50 % in Water (Syg) 50 ML SYRINGE IVP PRN (16:18)
[2019-09-13] MEDS ORDERED: Dextrose Gel 15 GM/37.5 ML TUBE PO PRN ×2 (16:18)
[2019-09-13] MEDS ORDERED: *HR* Propofol 200 MG/20 ML VIAL IVP ONE (16:33)
[2019-09-13] MEDS ORDERED: Lidocaine -MPF 2% 2 ML VIAL ONE (16:33)
[2019-09-13] MEDS ORDERED: 0.9 % Sodium Chloride 1,000 ML ONE (16:58)
[2019-09-13] MEDS ORDERED: 0.9 % Sodium Chloride 250 ML IVC SCH (17:00)
[2019-09-13] MEDS ORDERED: *HR* LORazepam 2 MG/ML VIAL IVP PRN (17:07)
[2019-09-13] MEDS: Insulin LISPRO 300 UNITS/3 ML VIAL SQ SCH ×2 (18:25→23:33)
[2019-09-13] MEDS: Pantoprazole 40 MG in 0.9 % Sodium Chloride Mini Bag 100 ML IVC SCH ×2 (18:28→23:34)
[2019-09-13 20:35] LABS: Hematocrit 25.1 % (37.5-50.1)
[2019-09-13 20:36] LABS: Hemoglobin 8.1 g/dL (12.9-16.9)
[2019-09-13] MEDS: Piperacillin/Tazobactam 3.375 GM in 0.9 % Sodium Chloride Mini Bag 100 ML IVPB SCH (22:09)
[2019-09-13 22:33] LABS: Bilirubin,Urine Negative (Negative); Blood,Urine Negative (Negative); Clarity,Urine Cloudy (Clear); Color,Urine Yellow (Yellow); Glucose,Urine (UA) 500 mg/dL (Normal); Ketones,Urine Trace mg/dL (Negative); Leukocyte Esterase,Urine Small (Negative); Nitrite,Urine Negative (Negative); PH,Urine 5.5 pH Units (5.0-8.0); Protein,Urine Trace mg/dL (Neg-Trace); Specific Gravity,Urine 1.022 (1.010-1.025); Urobilinogen,Urine Normal (Normal)
[2019-09-13 22:35] LABS: Bacteria,Urine None Seen per hpf (None-Few); Hyaline Casts,Urine None Seen per lpf (None-Few); Squamous Epithelial Cell,Urine Few per lpf (None-Few); WBC,Urine 30-50 per hpf (0-3)
[2019-09-13 22:51] LABS: Yeast,Urine Many per hpf (None Seen)
[2019-09-14] MEDS ORDERED: Ringers Solution, Lactated 500 ML IVC ONE (00:42)
[2019-09-14 03:32] LABS: Basophils # 0.1 K/mcL (0.0-0.2); Basophils % 0.3 %; Eosinophils # 0.2 K/mcL (0.0-0.6); Eosinophils % 1.4 %; Hematocrit 22.2 % (37.5-50.1); Immature Granulocytes % 1.2 % (0-4); Lymphocytes # 3.3 K/mcL (0.6-4.6); Lymphocytes % 20.3 %; Mean Corpuscular HGB Conc 31.5 g/dL (31.6-35.5); Mean Corpuscular Hemoglobin 28.3 pg (28.0-33.3); Mean Corpuscular Volume 89.9 fL (83.0-100.0); Mean Platelet Volume 11.3 fL (9.4-12.4); Monocytes # 1.6 K/mcL (0.0-1.3); Neutrophils # 10.9 K/mcL (1.6-8.9); Nucleated Red Blood Cells 0.1 /100 WBC (0); Platelet Count 196 K/mcL (140-400); Red Blood Count 2.47 M/mcL (4.19-5.50); Red Cell Distribution Width 15.9 % (11.5-14.5); Segmented Neutrophils % 66.8 %; White Blood Count 16.2 K/mcL (4.3-11.1)
[2019-09-14 03:58] LABS: Thyroid Stimulating Hormone 8.716 mcIU/mL (0.340-5.600)
[2019-09-14 04:04] LABS: Albumin 3.2 g/dL (3.5-5.7); Albumin/Globulin Ratio 1.6 (1.1-2.2); Bilirubin,Direct 0.1 mg/dL (0.0-0.2); Bilirubin,Indirect 0.4 mg/dL (0.0-1.0); Bilirubin,Total 0.5 mg/dL (0.3-1.0); Calcium 7.6 mg/dL (8.6-10.3); Magnesium 1.9 mg/dL (1.6-2.6); Potassium 3.5 mEq/L (3.5-5.1); Total Protein 5.2 g/dL (6.4-8.9)
[2019-09-14] MEDS: Pantoprazole 40 MG in 0.9 % Sodium Chloride Mini Bag 100 ML IVC SCH ×4 (04:13→21:24)
[2019-09-14] MEDS: Insulin LISPRO 300 UNITS/3 ML VIAL SQ SCH ×4 (06:16→23:45)
[2019-09-14] MEDS: Piperacillin/Tazobactam 3.375 GM in 0.9 % Sodium Chloride Mini Bag 100 ML IVPB SCH ×3 (06:17→20:58)
[2019-09-14] MEDS ORDERED: 0.9 % Sodium Chloride 250 ML IVC SCH (09:15)
[2019-09-14] MEDS ORDERED: Ringers Solution, Lactated 1,000 ML IVC SCH (09:45)
[2019-09-14] MEDS ORDERED: Heparin 1,000 UNITS/500 mL 500 ML ONE (15:19)
[2019-09-14] MEDS ORDERED: *HR* Heparin 10,000 UNIT/10 ML VIAL ONE (15:19)
[2019-09-14] MEDS ORDERED: Isovue-250 100 ML INFUS..BTL ONE (15:19)
[2019-09-14 15:58] LABS: Protein/Creatinine Ratio,Urine 0.56 mg/mg (0.00-0.20)
[2019-09-14] MEDS ORDERED: *HR* FentaNYL (PF) 100 MCG/2 ML VIAL ONE (16:00)
[2019-09-14 17:56] LABS: Total Protein 5.7 g/dL (6.4-8.9)
[2019-09-14 18:03] LABS: Hematocrit 31.2 % (37.5-50.1)
[2019-09-14 18:14] LABS: Hemoglobin 9.9 g/dL (12.9-16.9)
[2019-09-14] MEDS: Doxycycline 100 MG CAPSULE PO SCH (20:34)
[2019-09-14] MEDS: Ringers Solution, Lactated 1,000 ML IVC SCH (20:57)
[2019-09-14 21:29] LABS: Hematocrit 33.4 % (37.5-50.1); Hemoglobin 10.6 g/dL (12.9-16.9)
[2019-09-15] MEDS: Pantoprazole 40 MG in 0.9 % Sodium Chloride Mini Bag 100 ML IVC SCH ×6 (01:42→23:16)
[2019-09-15 04:49] LABS: Hematocrit 32.3 % (37.5-50.1); Hemoglobin 10.4 g/dL (12.9-16.9); Mean Corpuscular HGB Conc 32.2 g/dL (31.6-35.5); Mean Corpuscular Hemoglobin 29.3 pg (28.0-33.3); Mean Platelet Volume 11.3 fL (9.4-12.4); Platelet Count 198 K/mcL (140-400); Red Blood Count 3.55 M/mcL (4.19-5.50); Red Cell Distribution Width 16.5 % (11.5-14.5); White Blood Count 17.2 K/mcL (4.3-11.1)
[2019-09-15 05:01] LABS: Calcium 7.8 mg/dL (8.6-10.3); Magnesium 1.7 mg/dL (1.6-2.6); Potassium 3.4 mEq/L (3.5-5.1)
[2019-09-15] MEDS: Piperacillin/Tazobactam 3.375 GM in 0.9 % Sodium Chloride Mini Bag 100 ML IVPB SCH ×3 (05:04→21:16)
[2019-09-15] MEDS ORDERED: Potassium Phosphate 44 MEQ in 0.9 % Sodium Chloride 250 ML IVPB ONE (05:36)
[2019-09-15] MEDS: Insulin LISPRO 300 UNITS/3 ML VIAL SQ SCH ×3 (05:41→18:32)
[2019-09-15 06:50] LABS: Acinetobacter baumannii by PCR Not Detected (Not Detect); Candida albicans by PCR Not Detected (Not Detect); Candida glabrata by PCR Not Detected (Not Detect); Candida krusei by PCR Not Detected (Not Detect); Candida parapsilosis by PCR Not Detected (Not Detect); Candida tropicalis by PCR Not Detected (Not Detect); Enterobacter cloacae Cmplx PCR Not Detected (Not Detect); Enterobacteriaceae by PCR Not Detected (Not Detect); Enterococcus by PCR Not Detected (Not Detect); Escherichia coli by PCR Not Detected (Not Detect); Klebsiella oxytoca by PCR Not Detected (Not Detect); Klebsiella pneumoniae by PCR Not Detected (Not Detect); Proteus by PCR Not Detected (Not Detect); Pseudomonas aeruginosa by PCR Not Detected (Not Detect); Serratia marcescens by PCR Not Detected (Not Detect); Staphylococcus aureus by PCR Not Detected (Not Detect); Staphylococcus by PCR DETECTED (Not Detect); Streptococcus agalactiae(B)PCR Not Detected (Not Detect); Streptococcus by PCR Not Detected (Not Detect); Streptococcus pneumoniae PCR Not Detected (Not Detect); Streptococcus pyogenes (A) PCR Not Detected (Not Detect); blaKPC Carbapenem-Resist Gene Not Detected (Not Detect); mecA Methicillin-Resist Gene Not Detected (Not Detect); vanA/B Vancomycin-Resist Genes Not Detected (Not Detect)
[2019-09-15] MEDS: Doxycycline 100 MG CAPSULE PO SCH ×2 (08:49→21:15)
[2019-09-15] MEDS: Ringers Solution, Lactated 1,000 ML IVC SCH (09:55)
[2019-09-15] MEDS ORDERED: D5% in Water 1,000 ML IVC PRN (20:00)
[2019-09-15] MEDS ORDERED: *HR* LORazepam 2 MG/ML VIAL IVP PRN (20:00)
[2019-09-15] MEDS ORDERED: Dextrose Gel 15 GM/37.5 ML TUBE PO PRN ×2 (20:00)
[2019-09-15] MEDS ORDERED: *HR* Dextrose 50 % in Water (Syg) 50 ML SYRINGE IVP PRN (20:00)
[2019-09-15] MEDS ORDERED: Naloxone 0.4 MG/ML INJ IVP PRN (20:00)
[2019-09-15] MEDS ORDERED: 0.9 % Sodium Chloride 250 ML IVC SCH ×2 (20:00)
[2019-09-15] MEDS ORDERED: Acetaminophen 325 MG TABLET PO ONE (23:09)
[2019-09-15 23:37] LABS: Hematocrit 32.9 % (37.5-50.1); Hemoglobin 10.4 g/dL (12.9-16.9)
[2019-09-16] MEDS ORDERED: Ringers Solution, Lactated 1,000 ML ONE (00:42)
[2019-09-16] MEDS: Ringers Solution, Lactated 1,000 ML IVC SCH (00:58)
[2019-09-16] MEDS: Pantoprazole 40 MG in 0.9 % Sodium Chloride Mini Bag 100 ML IVC SCH ×5 (00:59→23:16)
[2019-09-16] MEDS: Insulin LISPRO 300 UNITS/3 ML VIAL SQ SCH ×4 (01:03→18:36)
[2019-09-16 04:17] LABS: Hematocrit 32.3 % (37.5-50.1); Hemoglobin 10.2 g/dL (12.9-16.9); Mean Corpuscular HGB Conc 31.6 g/dL (31.6-35.5); Mean Corpuscular Hemoglobin 29.2 pg (28.0-33.3); Mean Corpuscular Volume 92.6 fL (83.0-100.0); Platelet Count 214 K/mcL (140-400); Red Blood Count 3.49 M/mcL (4.19-5.50); Red Cell Distribution Width 16.8 % (11.5-14.5); White Blood Count 16.6 K/mcL (4.3-11.1)
[2019-09-16 04:34] LABS: BUN/Creatinine Ratio 9 (6-26); Blood Urea Nitrogen 12 mg/dL (6-20); Carbon Dioxide 23 mEq/L (23-29); Chloride 109 mEq/L (98-107); Glucose 168 mg/dL (70-105); Magnesium 1.7 mg/dL (1.6-2.6); Osmolality,Calculated 294 (280-300); Phosphorous 1.7 mg/dL (2.7-4.5); Potassium 3.2 mEq/L (3.5-5.1); Sodium 140 mEq/L (136-145); eGFR For African Americans > 60 (> 60); eGFR For Non-African Americans 52 (> 60)
[2019-09-16] MEDS: Piperacillin/Tazobactam 3.375 GM in 0.9 % Sodium Chloride Mini Bag 100 ML IVPB SCH ×3 (05:45→21:46)
[2019-09-16] MEDS: Doxycycline 100 MG CAPSULE PO SCH ×2 (08:21→21:44)
[2019-09-16 10:14] LABS: Hematocrit 34.5 % (37.5-50.1); Hemoglobin 10.6 g/dL (12.9-16.9)
[2019-09-16] MEDS ORDERED: Ondansetron 4 MG/2 ML VIAL IVP PRN (11:28)
[2019-09-16 15:53] LABS: Hematocrit 36.1 % (37.5-50.1); Hemoglobin 11.2 g/dL (12.9-16.9)
[2019-09-16] MEDS ORDERED: *HR* HYDROcodone/Acet 10/325 mg TABLET PO PRN (16:21)
[2019-09-17] MEDS: Insulin LISPRO 300 UNITS/3 ML VIAL SQ SCH ×5 (00:28→21:25)
[2019-09-17] MEDS: Pantoprazole 40 MG in 0.9 % Sodium Chloride Mini Bag 100 ML IVC SCH ×5 (04:43→22:52)
[2019-09-17] MEDS: Piperacillin/Tazobactam 3.375 GM in 0.9 % Sodium Chloride Mini Bag 100 ML IVPB SCH ×2 (05:42→15:20)
[2019-09-17] MEDS: Doxycycline 100 MG CAPSULE PO SCH (08:01)
[2019-09-17 08:35] LABS: Basophils # 0.1 K/mcL (0.0-0.2); Basophils % 0.6 %; Eosinophils # 0.6 K/mcL (0.0-0.6); Eosinophils % 4.9 %; Hematocrit 35.7 % (37.5-50.1); Hemoglobin 11.1 g/dL (12.9-16.9); Lymphocytes # 2.1 K/mcL (0.6-4.6); Lymphocytes % 16.9 %; Mean Corpuscular HGB Conc 31.1 g/dL (31.6-35.5); Mean Corpuscular Hemoglobin 29.3 pg (28.0-33.3); Mean Corpuscular Volume 94.2 fL (83.0-100.0); Mean Platelet Volume 10.5 fL (9.4-12.4); Monocytes # 1.5 K/mcL (0.0-1.3); Monocytes % 11.5 %; Neutrophils # 8.3 K/mcL (1.6-8.9); Platelet Count 257 K/mcL (140-400); Red Blood Count 3.79 M/mcL (4.19-5.50); Red Cell Distribution Width 17.2 % (11.5-14.5); Segmented Neutrophils % 65.1 %; White Blood Count 12.7 K/mcL (4.3-11.1)
[2019-09-17 08:57] LABS: BUN/Creatinine Ratio 5 (6-26); Blood Urea Nitrogen 7 mg/dL (6-20); Calcium 8.2 mg/dL (8.6-10.3); Carbon Dioxide 23 mEq/L (23-29); Chloride 107 mEq/L (98-107); Glucose 169 mg/dL (70-105); Osmolality,Calculated 294 (280-300); Potassium 3.7 mEq/L (3.5-5.1); Sodium 141 mEq/L (136-145); eGFR For African Americans > 60 (> 60); eGFR For Non-African Americans 56 (> 60)
[2019-09-17] MEDS ORDERED: Aminoglycoside Consult 1 EACH MC ONE (09:01)
[2019-09-17] MEDS ORDERED: Perflutren Lipid Microsphere 1.3 ML in 0.9 % Sodium Chloride 8.7 ML IVP ONE (14:11)
[2019-09-17] MEDS ORDERED: Insulin LISPRO 300 UNITS/3 ML VIAL SQ SCH ×2 (16:30→21:00)
[2019-09-17] MEDS: Sulfamethoxazole/Trimeth DS 1 EACH TABLET PO SCH (21:24)
[2019-09-18] MEDS: Pantoprazole 40 MG in 0.9 % Sodium Chloride Mini Bag 100 ML IVC SCH ×2 (04:06→09:20)
[2019-09-18 04:33] LABS: Basophils # 0.1 K/mcL (0.0-0.2); Basophils % 0.6 %; Eosinophils # 0.6 K/mcL (0.0-0.6); Eosinophils % 5.2 %; Hematocrit 35.3 % (37.5-50.1); Hemoglobin 11.1 g/dL (12.9-16.9); Immature Granulocytes % 0.6 % (0-4); Lymphocytes # 1.9 K/mcL (0.6-4.6); Lymphocytes % 15.7 %; Mean Corpuscular HGB Conc 31.4 g/dL (31.6-35.5); Mean Corpuscular Hemoglobin 29.2 pg (28.0-33.3); Mean Corpuscular Volume 92.9 fL (83.0-100.0); Mean Platelet Volume 10.4 fL (9.4-12.4); Monocytes # 1.5 K/mcL (0.0-1.3); Monocytes % 12.1 %; Neutrophils # 8.2 K/mcL (1.6-8.9); Platelet Count 276 K/mcL (140-400); Red Cell Distribution Width 16.7 % (11.5-14.5); Segmented Neutrophils % 65.8 %; White Blood Count 12.4 K/mcL (4.3-11.1)
[2019-09-18 04:55] LABS: BUN/Creatinine Ratio 4 (6-26); Blood Urea Nitrogen 5 mg/dL (6-20); Calcium 8.1 mg/dL (8.6-10.3); Carbon Dioxide 25 mEq/L (23-29); Chloride 104 mEq/L (98-107); Glucose 139 mg/dL (70-105); Osmolality,Calculated 294 (280-300); Potassium 3.3 mEq/L (3.5-5.1); Sodium 142 mEq/L (136-145); eGFR For African Americans > 60 (> 60); eGFR For Non-African Americans > 60 (> 60)
[2019-09-18] MEDS: Insulin LISPRO 300 UNITS/3 ML VIAL SQ SCH ×4 (09:19→22:08)
[2019-09-18] MEDS: Sulfamethoxazole/Trimeth DS 1 EACH TABLET PO SCH ×2 (09:30→21:03)
[2019-09-18] MEDS: Furosemide 40 MG TABLET PO SCH (20:00)
[2019-09-19] MEDS: Insulin LISPRO 300 UNITS/3 ML VIAL SQ SCH ×4 (08:39→21:27)
[2019-09-19] MEDS: Furosemide 40 MG TABLET PO SCH ×2 (08:40→21:21)
[2019-09-19] MEDS: Sulfamethoxazole/Trimeth DS 1 EACH TABLET PO SCH ×2 (08:45→21:21)
[2019-09-19] MEDS: Ipratropium/Albuterol Neb 3 ML IH SCH ×2 (19:04→21:25)
[2019-09-20] MEDS: Ipratropium/Albuterol Neb 3 ML IH SCH ×2 (04:05→09:59)
[2019-09-20 05:03] LABS: Basophils # 0.1 K/mcL (0.0-0.2); Basophils % 0.8 %; Eosinophils # 0.6 K/mcL (0.0-0.6); Hematocrit 45.6 % (37.5-50.1); Lymphocytes # 3.9 K/mcL (0.6-4.6); Lymphocytes % 27.5 %; Mean Corpuscular HGB Conc 31.6 g/dL (31.6-35.5); Mean Corpuscular Hemoglobin 28.6 pg (28.0-33.3); Mean Corpuscular Volume 90.7 fL (83.0-100.0); Mean Platelet Volume 10.1 fL (9.4-12.4); Monocytes # 1.4 K/mcL (0.0-1.3); Monocytes % 9.4 %; Neutrophils # 8.2 K/mcL (1.6-8.9); Platelet Count 394 K/mcL (140-400); Red Blood Count 5.03 M/mcL (4.19-5.50); Red Cell Distribution Width 16.2 % (11.5-14.5); Segmented Neutrophils % 57.3 %; White Blood Count 14.3 K/mcL (4.3-11.1)
[2019-09-20 05:04] LABS: Hemoglobin 14.4 g/dL (12.9-16.9)
[2019-09-20] MEDS: Insulin LISPRO 300 UNITS/3 ML VIAL SQ SCH ×2 (08:42→11:17)
[2019-09-20] MEDS: Sulfamethoxazole/Trimeth DS 1 EACH TABLET PO SCH (08:42)
[2019-09-20 08:46] LABS: Calcium 8.6 mg/dL (8.6-10.3); Magnesium 1.4 mg/dL (1.6-2.6); Potassium 3.6 mEq/L (3.5-5.1)
[2019-09-20 10:50] VITALS: BP 112/73
[2019-09-20] MEDS ORDERED: Magnesium Oxide 400 MG TABLET PO SCH (11:00)
== END 2019-09-20 12:30 | disposition home health service (06) | DRG 515 ==
LOC: EMEROOARM 12:59 → ICNU 15:20 → SUATTDRO 15:20 → ICNU 16:39 → 3ANU 09-15 19:50
PROVIDERS: ADMIT Pediatrics; ATTEND Internal Medicine

== ENCOUNTER 2020-04-08 05:22 | Inpatient (IN) ==
[2020-04-08] MEDS ORDERED: Aspirin 325 MG TABLET PO ONE (05:37)
[2020-04-08] MEDS: Nitroglycerin 0.4 MG TAB.SUBL SL SCH (05:53)
[2020-04-08 05:56] LABS: INR 1.1; Prothrombin Time 12.8 Seconds (9.4-12.1)
[2020-04-08 06:06] LABS: Basophils % 0.4 %; Eosinophils # 0.2 K/mcL (0.0-0.6); Eosinophils % 1.8 %; Hematocrit 44.4 % (37.5-50.1); Hemoglobin 14.3 g/dL (12.9-16.9); Immature Granulocytes % 0.4 % (0-4); Lymphocytes # 2.5 K/mcL (0.6-4.6); Lymphocytes % 27.8 %; Mean Corpuscular HGB Conc 32.2 g/dL (31.6-35.5); Mean Corpuscular Hemoglobin 29.7 pg (28.0-33.3); Mean Corpuscular Volume 92.3 fL (83.0-100.0); Mean Platelet Volume 10.8 fL (9.4-12.4); Monocytes % 10.6 %; Neutrophils # 5.3 K/mcL (1.6-8.9); Platelet Count 263 K/mcL (140-400); Red Blood Count 4.81 M/mcL (4.19-5.50); Red Cell Distribution Width 14.3 % (11.5-14.5)
[2020-04-08 06:15] LABS: Alanine Aminotransferase 14 Units/L (7-52); Albumin 4.3 g/dL (3.5-5.7); Albumin/Globulin Ratio 1.4 (1.1-2.2); Alkaline Phosphatase 44 Units/L (34-104); Aspartate Amino Transferase 18 Units/L (13-39); BUN/Creatinine Ratio 13 (6-26); Bilirubin,Total 0.7 mg/dL (0.3-1.0); Blood Urea Nitrogen 18 mg/dL (6-20); Carbon Dioxide 27 mEq/L (23-29); Chloride 99 mEq/L (98-107); Glucose 175 mg/dL (70-105); Magnesium 1.6 mg/dL (1.6-2.6); Osmolality,Calculated 286 (280-300); Phenytoin (Dilantin) < 0.5 mcg/mL (10.0-20.0); Potassium 4.1 mEq/L (3.5-5.1); Sodium 135 mEq/L (136-145); Total Protein 7.3 g/dL (6.4-8.9); Troponin I < 0.03 ng/mL (< 0.04); eGFR For African Americans > 60 (> 60); eGFR For Non-African Americans 51 (> 60)
[2020-04-08] MEDS ORDERED: Acetaminophen 325 MG TABLET PO PRN (06:21)
[2020-04-08] MEDS ORDERED: Ondansetron ODT 4 MG TAB.RAPDIS SL PRN (06:21)
[2020-04-08] MEDS ORDERED: D5% in Water 1,000 ML IVC PRN (07:03)
[2020-04-08] MEDS ORDERED: Dextrose Gel 15 GM/37.5 ML TUBE PO PRN ×2 (07:03)
[2020-04-08] MEDS: Insulin LISPRO 300 UNITS/3 ML VIAL SQ SCH ×3 (08:33→16:35)
[2020-04-08] MEDS ORDERED: Nitroglycerin 0.4 MG TAB.SUBL SL ONE (12:15)
[2020-04-08] MEDS: Nitroglycerin 0.4 MG TAB.SUBL SL PRN ×2 (12:17→12:27)
[2020-04-08] MEDS: *HR* Heparin 5,000 UNIT/ML VIAL SQ SCH (15:06)
[2020-04-08] MEDS: Isosorbide MONOnitrate (24 HR) 30 MG TAB.ER.24H PO SCH (15:06)
[2020-04-09] MEDS: Insulin LISPRO 300 UNITS/3 ML VIAL SQ SCH ×5 (00:40→20:25)
[2020-04-09] MEDS: *HR* Heparin 5,000 UNIT/ML VIAL SQ SCH ×2 (00:40→05:24)
[2020-04-09 01:38] LABS: Hematocrit 41.5 % (37.5-50.1); Hemoglobin 13.5 g/dL (12.9-16.9); Mean Corpuscular HGB Conc 32.5 g/dL (31.6-35.5); Mean Corpuscular Hemoglobin 30.1 pg (28.0-33.3); Mean Corpuscular Volume 92.4 fL (83.0-100.0); Mean Platelet Volume 10.8 fL (9.4-12.4); Platelet Count 268 K/mcL (140-400); Red Blood Count 4.49 M/mcL (4.19-5.50); Red Cell Distribution Width 14.4 % (11.5-14.5); White Blood Count 7.8 K/mcL (4.3-11.1)
[2020-04-09 02:04] LABS: BUN/Creatinine Ratio 16 (6-26); Blood Urea Nitrogen 24 mg/dL (6-20); Calcium 8.3 mg/dL (8.6-10.3); Carbon Dioxide 21 mEq/L (23-29); Chloride 103 mEq/L (98-107); Glucose 90 mg/dL (70-105); Osmolality,Calculated 286 (280-300); Potassium 3.9 mEq/L (3.5-5.1); Sodium 136 mEq/L (136-145); Troponin I < 0.03 ng/mL (< 0.04); eGFR For African Americans 60 (> 60); eGFR For Non-African Americans 49 (> 60)
[2020-04-09] MEDS: Nitroglycerin 0.4 MG TAB.SUBL SL SCH ×5 (03:51→03:57)
[2020-04-09] MEDS ORDERED: Regadenoson 0.4 MG/5 ML SYRINGE IVP ONE (06:14)
[2020-04-09] MEDS ORDERED: Ipratropium/Albuterol Neb 3 ML IH PRN (10:11)
[2020-04-09] MEDS ORDERED: *HR* Heparin 5,000 UNIT/ML VIAL IVP PRN ×2 (10:23)
[2020-04-09] MEDS: Aspirin 81 MG TAB.CHEW PO SCH (11:01)
[2020-04-09] MEDS: Isosorbide MONOnitrate (24 HR) 30 MG TAB.ER.24H PO SCH (11:01)
[2020-04-09] MEDS: Heparin 25,000UNIT/250ML 1/2NS 25,000 UNIT/250 ML IV.SOLN IVC SCH (11:05)
[2020-04-09] MEDS: carvediloL 6.25 MG TABLET PO SCH (16:24)
[2020-04-09] MEDS: Nitroglycerin 0.4 MG TAB.SUBL SL PRN (16:29)
[2020-04-10 01:02] LABS: Hematocrit 39.9 % (37.5-50.1); Hemoglobin 13.1 g/dL (12.9-16.9)
[2020-04-10 01:03] LABS: Basophils # 0.1 K/mcL (0.0-0.2); Basophils % 0.9 %; Eosinophils # 0.1 K/mcL (0.0-0.6); Eosinophils % 1.9 %; Hemoglobin 12.9 g/dL (12.9-16.9); Immature Granulocytes % 0.7 % (0-4); Lymphocytes % 40.5 %; Mean Corpuscular HGB Conc 33.1 g/dL (31.6-35.5); Mean Corpuscular Hemoglobin 29.5 pg (28.0-33.3); Mean Corpuscular Volume 89.2 fL (83.0-100.0); Mean Platelet Volume 10.6 fL (9.4-12.4); Monocytes # 0.8 K/mcL (0.0-1.3); Monocytes % 10.6 %; Neutrophils # 3.4 K/mcL (1.6-8.9); Platelet Count 281 K/mcL (140-400); Red Blood Count 4.37 M/mcL (4.19-5.50); Red Cell Distribution Width 14.6 % (11.5-14.5); Segmented Neutrophils % 45.4 %; White Blood Count 7.4 K/mcL (4.3-11.1)
[2020-04-10 01:15] LABS: BUN/Creatinine Ratio 19 (6-26); Blood Urea Nitrogen 28 mg/dL (6-20); Calcium 8.4 mg/dL (8.6-10.3); Carbon Dioxide 23 mEq/L (23-29); Chloride 103 mEq/L (98-107); Glucose 88 mg/dL (70-105); Osmolality,Calculated 287 (280-300); Potassium 3.9 mEq/L (3.5-5.1); Sodium 136 mEq/L (136-145); eGFR For African Americans > 60 (> 60); eGFR For Non-African Americans 50 (> 60)
[2020-04-10] MEDS: carvediloL 6.25 MG TABLET PO SCH ×2 (08:40→18:15)
[2020-04-10] MEDS: Isosorbide MONOnitrate (24 HR) 30 MG TAB.ER.24H PO SCH (08:41)
[2020-04-10] MEDS: Fenofibrate 54 MG TABLET PO SCH (08:41)
[2020-04-10] MEDS: Insulin LISPRO 300 UNITS/3 ML VIAL SQ SCH ×4 (08:41→20:38)
[2020-04-10] MEDS: lisinopriL 5 MG TABLET PO SCH (08:41)
[2020-04-10] MEDS: Aspirin 81 MG TAB.CHEW PO SCH (08:42)
[2020-04-10] MEDS: *HR* Dextrose 50 % in Water (Vial) 50 ML VIAL IVP PRN ×2 (11:23→12:07)
[2020-04-10] MEDS: Heparin 25,000UNIT/250ML 1/2NS 25,000 UNIT/250 ML IV.SOLN IVC SCH (11:27)
[2020-04-10] MEDS ORDERED: 0.9 % Sodium Chloride 1,000 ML ONE (12:15)
[2020-04-11] MEDS: Nitroglycerin 0.4 MG TAB.SUBL SL PRN (02:55)
[2020-04-11] MEDS: Isosorbide MONOnitrate (24 HR) 30 MG TAB.ER.24H PO SCH (07:52)
[2020-04-11] MEDS: lisinopriL 5 MG TABLET PO SCH (07:53)
[2020-04-11] MEDS: carvediloL 6.25 MG TABLET PO SCH (07:53)
[2020-04-11] MEDS: Insulin LISPRO 300 UNITS/3 ML VIAL SQ SCH ×2 (07:55→12:00)
[2020-04-11] MEDS: Fenofibrate 54 MG TABLET PO SCH (07:55)
[2020-04-11] MEDS: Aspirin 81 MG TAB.CHEW PO SCH (07:55)
[2020-04-11 09:01] LABS: Basophils # 0.1 K/mcL (0.0-0.2); Basophils % 0.9 %; Eosinophils # 0.2 K/mcL (0.0-0.6); Hematocrit 42.7 % (37.5-50.1); Hemoglobin 13.3 g/dL (12.9-16.9); Immature Granulocytes % 0.8 % (0-4); Lymphocytes # 2.1 K/mcL (0.6-4.6); Mean Corpuscular HGB Conc 31.1 g/dL (31.6-35.5); Mean Corpuscular Volume 93.2 fL (83.0-100.0); Mean Platelet Volume 10.3 fL (9.4-12.4); Monocytes # 0.8 K/mcL (0.0-1.3); Monocytes % 10.7 %; Neutrophils # 4.5 K/mcL (1.6-8.9); Platelet Count 321 K/mcL (140-400); Red Blood Count 4.58 M/mcL (4.19-5.50); Red Cell Distribution Width 14.8 % (11.5-14.5); Segmented Neutrophils % 58.6 %; White Blood Count 7.7 K/mcL (4.3-11.1)
[2020-04-11 09:14] LABS: Calcium 8.9 mg/dL (8.6-10.3); Potassium 4.1 mEq/L (3.5-5.1)
[2020-04-11] MEDS ORDERED: 0.9 % Sodium Chloride 500 ML IVC SCH (11:45)
[2020-04-11 16:14] VITALS: BP 101/65
== END 2020-04-11 15:41 | disposition short-term general hospital (02) | DRG 303 ==
LOC: EMEROOARM 05:22 → 3BNU 05:22
PROVIDERS: ADMIT Internal Medicine; ATTEND Internal Medicine

== ENCOUNTER 2020-08-13 15:59 | Observation (INO) ==
[2020-08-13] MEDS ORDERED: 0.9 % Sodium Chloride 1,000 ML IVC ONE (17:01)
[2020-08-13] MEDS ORDERED: *HR* FentaNYL (PF) 100 MCG/2 ML VIAL IVP ONE (17:01)
[2020-08-13] MEDS ORDERED: Isovue-370 500 ML BOTTLE IVP ONE (17:02)
[2020-08-13] MEDS ORDERED: Vancomycin (wt based) 1,000 MG VIAL IVPB STA (17:03)
[2020-08-13] MEDS ORDERED: Piperacillin/Tazobactam 3.375 GM in 0.9 % Sodium Chloride Mini Bag 100 ML IVPB ONE (17:03)
[2020-08-13] MEDS ORDERED: Vancomycin 1,250 MG/262.5 ML IV.SOLN IVPB ONE (17:11)
[2020-08-13 17:57] LABS: Basophils % 0.3 %; Eosinophils # 0.3 K/mcL (0.0-0.6); Hematocrit 33.8 % (37.5-50.1); Hemoglobin 10.9 g/dL (12.9-16.9); Immature Granulocytes % 0.2 % (0-4); Lymphocytes % 23.4 %; Mean Corpuscular HGB Conc 32.2 g/dL (31.6-35.5); Mean Corpuscular Hemoglobin 29.5 pg (28.0-33.3); Mean Corpuscular Volume 91.4 fL (83.0-100.0); Mean Platelet Volume 9.7 fL (9.4-12.4); Monocytes # 1.6 K/mcL (0.0-1.3); Monocytes % 12.6 %; Neutrophils # 7.8 K/mcL (1.6-8.9); Platelet Count 437 K/mcL (140-400); Red Cell Distribution Width 13.9 % (11.5-14.5); Segmented Neutrophils % 61.5 %; White Blood Count 12.6 K/mcL (4.3-11.1)
[2020-08-13 18:15] LABS: Alanine Aminotransferase 9 Units/L (7-52); Albumin 3.6 g/dL (3.5-5.7); Albumin/Globulin Ratio 1.3 (1.1-2.2); Alkaline Phosphatase 41 Units/L (34-104); Aspartate Amino Transferase 11 Units/L (13-39); BUN/Creatinine Ratio 24 (6-26); Bilirubin,Total 0.3 mg/dL (0.3-1.0); Blood Urea Nitrogen 34 mg/dL (6-20); Calcium 8.7 mg/dL (8.6-10.3); Carbon Dioxide 23 mEq/L (23-29); Chloride 108 mEq/L (98-107); Globulin 2.8 g/dL (2.4-3.5); Glucose 138 mg/dL (70-105); Osmolality,Calculated 296 (280-300); Potassium 4.3 mEq/L (3.5-5.1); Sodium 138 mEq/L (136-145); Total Protein 6.4 g/dL (6.4-8.9); eGFR For African Americans > 60 (> 60); eGFR For Non-African Americans 52 (> 60)
[2020-08-13] MEDS ORDERED: Nystatin POWDER 30 GM BOTTLE TP PRN (20:18)
[2020-08-13] MEDS ORDERED: Nitroglycerin 0.4 MG TAB.SUBL SL PRN (20:18)
[2020-08-13] MEDS ORDERED: D5% in Water 1,000 ML IVC PRN (20:23)
[2020-08-13] MEDS ORDERED: Dextrose Gel 15 GM/37.5 ML TUBE PO PRN ×2 (20:23)
[2020-08-13] MEDS ORDERED: *HR* Dextrose 50 % in Water (Vial) 50 ML VIAL IVP PRN (20:23)
[2020-08-13] MEDS ORDERED: Naloxone 0.4 MG/ML INJ IVP PRN (20:32)
[2020-08-13] MEDS ORDERED: Ondansetron 4 MG/2 ML VIAL IVP PRN (20:32)
[2020-08-13] MEDS ORDERED: Insulin LISPRO 300 UNITS/3 ML VIAL SUBQ SCH (21:00)
[2020-08-13] MEDS ORDERED: Acetaminophen 325 MG TABLET PO PRN (21:32)
[2020-08-13] MEDS ORDERED: *HR* HYDROcodone/Acet 5/325 mg TABLET PO PRN (21:33)
[2020-08-13] MEDS: Gabapentin 400 MG CAPSULE PO SCH (21:53)
[2020-08-13] MEDS ORDERED: Ipratropium/Albuterol Neb 3 ML IH PRN (22:00)
[2020-08-14] MEDS: Piperacillin/Tazobactam 3.375 GM in 0.9 % Sodium Chloride Mini Bag 100 ML IVPB SCH ×2 (01:07→09:26)
[2020-08-14 05:00] LABS: Hematocrit 32.6 % (37.5-50.1); Hemoglobin 10.4 g/dL (12.9-16.9); Mean Corpuscular HGB Conc 31.9 g/dL (31.6-35.5); Mean Corpuscular Hemoglobin 29.4 pg (28.0-33.3); Mean Corpuscular Volume 92.1 fL (83.0-100.0); Mean Platelet Volume 9.8 fL (9.4-12.4); Platelet Count 452 K/mcL (140-400); Red Blood Count 3.54 M/mcL (4.19-5.50); Red Cell Distribution Width 13.9 % (11.5-14.5); White Blood Count 10.5 K/mcL (4.3-11.1)
[2020-08-14 05:08] LABS: INR 1.1; Prothrombin Time 12.3 Seconds (9.4-12.1)
[2020-08-14 05:10] LABS: Activated Partial Thrombo Time 30.6 Seconds (26.0-36.0)
[2020-08-14 05:12] LABS: Estimated Average Glucose 209 mg/dl; Hemoglobin A1C 8.9 %
[2020-08-14 05:21] LABS: % Iron Saturation 6 % (20-55); BUN/Creatinine Ratio 24 (6-26); Blood Urea Nitrogen 30 mg/dL (6-20); Calcium 8.3 mg/dL (8.6-10.3); Carbon Dioxide 23 mEq/L (23-29); Chloride 109 mEq/L (98-107); Chol/HDL Ratio 5.9 (0-4.9); Cholesterol 164 mg/dL (< 200); Glucose 315 mg/dL (70-105); HDL Cholesterol 28 mg/dL (40-59); Iron 19 mcg/dL (65-175); LDL Cholesterol,Calculated 89 mg/dL (< 100); Magnesium 1.8 mg/dL (1.6-2.6); Osmolality,Calculated 304 (280-300); Potassium 4.7 mEq/L (3.5-5.1); Sodium 138 mEq/L (136-145); Transferrin 220 mg/dL (203-362); Triglycerides 233 mg/dL (< 150); eGFR For African Americans > 60 (> 60); eGFR For Non-African Americans 58 (> 60)
[2020-08-14 05:35] LABS: Thyroid Stimulating Hormone 0.032 mcIU/mL (0.340-5.600)
[2020-08-14 05:39] LABS: Ferritin 101 ng/mL (20-250)
[2020-08-14 05:46] LABS: Folate 14.2 ng/mL (3.0-16.0)
[2020-08-14] MEDS ORDERED: Levothyroxine 25 MCG TABLET PO SCH (06:30)
[2020-08-14 07:02] VITALS: BP 97/57
[2020-08-14] MEDS ORDERED: Insulin LISPRO 300 UNITS/3 ML VIAL SUBQ SCH (07:30)
[2020-08-14] MEDS ORDERED: carvediloL 6.25 MG TABLET PO SCH (08:00)
[2020-08-14] MEDS ORDERED: tiZANidine 4 MG TABLET PO SCH (09:00)
[2020-08-14] MEDS ORDERED: *HR* Rivaroxaban 10 MG TABLET PO SCH (09:00)
[2020-08-14] MEDS ORDERED: Fenofibrate 54 MG TABLET PO SCH (09:00)
[2020-08-14] MEDS ORDERED: lisinopriL 5 MG TABLET PO SCH (09:00)
[2020-08-14] MEDS: Gabapentin 400 MG CAPSULE PO SCH (09:25)
== END 2020-08-14 12:54 | disposition home or self-care (01) ==
LOC: EMEROOARM 15:59 → 3ANU 15:59 → SUATTDRO 19:48 → 3ANU 20:50
PROVIDERS: ADMIT Student in an Organized Health Care Education/Training Program; ATTEND Internal Medicine

== ENCOUNTER 2021-01-20 16:16 | Inpatient (IN) ==
[2021-01-20] MEDS ORDERED: *HR* OxyCODONE Immed Rel 5 MG TABLET PO PRN (21:31)
[2021-01-20] MEDS ORDERED: Naloxone 0.4 MG/ML INJ IVP PRN (21:31)
[2021-01-20] MEDS ORDERED: Dextrose Gel 15 GM/37.5 ML TUBE PO PRN ×2 (21:35)
[2021-01-20] MEDS ORDERED: *HR* Dextrose 50 % in Water (Vial) 50 ML VIAL IVP PRN (21:35)
[2021-01-20] MEDS ORDERED: D5% in Water 1,000 ML IVC PRN (21:35)
[2021-01-20] MEDS ORDERED: Ringers Solution, Lactated 1,000 ML IVC SCH (21:45)
[2021-01-20] MEDS: Ringers Solution, Lactated 1,000 ML IVC SCH (21:58)
[2021-01-20] MEDS: *HR* OxyCODONE Immed Rel 5 MG TABLET PO PRN (21:59)
[2021-01-20] MEDS: Ondansetron 4 MG/2 ML VIAL IVP PRN (21:59)
[2021-01-21] MEDS: Insulin LISPRO 300 UNITS/3 ML VIAL SUBQ SCH ×5 (00:21→20:58)
[2021-01-21] MEDS: Ringers Solution, Lactated 1,000 ML IVC SCH ×2 (02:23→16:32)
[2021-01-21] MEDS ORDERED: cefTRIAXone 1,000 MG in Water for inj. (sterile) 10 ML IVP SCH (02:23)
[2021-01-21] MEDS: *HR* Heparin 5,000 UNIT/ML VIAL SQ SCH ×2 (06:13→16:33)
[2021-01-21] MEDS: Ondansetron 4 MG/2 ML VIAL IVP PRN ×2 (06:13→13:06)
[2021-01-21] MEDS ORDERED: Levothyroxine Sodium 100 MCG VIAL IVP SCH (06:30)
[2021-01-21 07:02] LABS: Basophils % 0.2 %; Eosinophils # 0.3 K/mcL (0.0-0.6); Eosinophils % 1.3 %; Hematocrit 34.2 % (37.5-50.1); Hemoglobin 10.5 g/dL (12.9-16.9); Immature Granulocytes % 0.6 % (0-4); Lymphocytes # 2.7 K/mcL (0.6-4.6); Lymphocytes % 14.1 %; Mean Corpuscular HGB Conc 30.7 g/dL (31.6-35.5); Mean Corpuscular Hemoglobin 29.2 pg (28.0-33.3); Mean Platelet Volume 11.4 fL (9.4-12.4); Monocytes % 10.3 %; Platelet Count 285 K/mcL (140-400); Red Cell Distribution Width 14.1 % (11.5-14.5); Segmented Neutrophils % 73.5 %; White Blood Count 19.1 K/mcL (4.3-11.1)
[2021-01-21 07:41] LABS: Alanine Aminotransferase 9 Units/L (7-52); Albumin 3.3 g/dL (3.5-5.7); Albumin/Globulin Ratio 1.2 (1.1-2.2); Alkaline Phosphatase 44 Units/L (34-104); Aspartate Amino Transferase 11 Units/L (13-39); BUN/Creatinine Ratio 21 (6-26); Bilirubin,Total 0.3 mg/dL (0.3-1.0); Blood Urea Nitrogen 23 mg/dL (6-20); Calcium 8.6 mg/dL (8.6-10.3); Carbon Dioxide 18 mEq/L (23-29); Chloride 110 mEq/L (98-107); Globulin 2.8 g/dL (2.4-3.5); Glucose 210 mg/dL (70-105); Lipase 134 Units/L (11-82); Osmolality,Calculated 298 (280-300); Potassium 4.4 mEq/L (3.5-5.1); Sodium 139 mEq/L (136-145); Total Protein 6.1 g/dL (6.4-8.9); Triglycerides 1140 mg/dL (< 150); eGFR For African Americans > 60 (> 60); eGFR For Non-African Americans > 60 (> 60)
[2021-01-21] MEDS: Azithromycin 250 MG TABLET PO SCH (09:00)
[2021-01-21] MEDS ORDERED: *HR* Promethazine 25 MG/ML VIAL IM PRN (11:31)
[2021-01-21] MEDS ORDERED: Acetaminophen 325 MG TABLET PO PRN (12:37)
[2021-01-21] MEDS: Pantoprazole 40 MG VIAL IVP SCH (13:06)
[2021-01-21] MEDS: *HR* OxyCODONE Immed Rel 5 MG TABLET PO PRN (13:07)
[2021-01-21] MEDS: Topiramate 25 MG TABLET PO SCH (13:08)
[2021-01-21] MEDS: Levalbuterol Neb 0.63 MG/3 ML IH SCH ×3 (15:29→22:38)
[2021-01-21] MEDS ORDERED: tiZANidine 4 MG TABLET PO PRN (16:59)
[2021-01-21] MEDS: Piperacillin/Tazobactam 3.375 GM in 0.9 % Sodium Chloride Mini Bag 100 ML IVPB SCH (18:11)
[2021-01-22] MEDS: carvediloL 6.25 MG TABLET PO SCH ×3 (00:41→21:26)
[2021-01-22] MEDS: Gabapentin 400 MG CAPSULE PO SCH ×4 (00:42→21:27)
[2021-01-22] MEDS: Topiramate 25 MG TABLET PO SCH ×3 (00:42→21:27)
[2021-01-22] MEDS: Piperacillin/Tazobactam 3.375 GM in 0.9 % Sodium Chloride Mini Bag 100 ML IVPB SCH ×3 (01:00→17:29)
[2021-01-22 03:17] LABS: Basophils % 0.3 %; Eosinophils # 0.2 K/mcL (0.0-0.6); Eosinophils % 1.4 %; Hematocrit 32.2 % (37.5-50.1); Hemoglobin 10.4 g/dL (12.9-16.9); Immature Granulocytes % 1.1 % (0-4); Lymphocytes # 2.8 K/mcL (0.6-4.6); Lymphocytes % 18.7 %; Mean Corpuscular HGB Conc 32.3 g/dL (31.6-35.5); Mean Corpuscular Volume 92.8 fL (83.0-100.0); Monocytes # 1.3 K/mcL (0.0-1.3); Monocytes % 8.4 %; Neutrophils # 10.5 K/mcL (1.6-8.9); Platelet Count 288 K/mcL (140-400); Red Blood Count 3.47 M/mcL (4.19-5.50); Red Cell Distribution Width 13.8 % (11.5-14.5); Segmented Neutrophils % 70.1 %; White Blood Count 14.9 K/mcL (4.3-11.1)
[2021-01-22] MEDS: Levalbuterol Neb 0.63 MG/3 ML IH SCH ×4 (03:42→22:14)
[2021-01-22 03:49] LABS: Alanine Aminotransferase 10 Units/L (7-52); Albumin 3.3 g/dL (3.5-5.7); Albumin/Globulin Ratio 1.1 (1.1-2.2); Alkaline Phosphatase 46 Units/L (34-104); Aspartate Amino Transferase 12 Units/L (13-39); BUN/Creatinine Ratio 19 (6-26); Bilirubin,Total 0.4 mg/dL (0.3-1.0); Blood Urea Nitrogen 19 mg/dL (6-20); Carbon Dioxide 19 mEq/L (23-29); Chloride 107 mEq/L (98-107); Glucose 191 mg/dL (70-105); Osmolality,Calculated 299 (280-300); Potassium 4.1 mEq/L (3.5-5.1); Sodium 141 mEq/L (136-145); Total Protein 6.3 g/dL (6.4-8.9); eGFR For African Americans > 60 (> 60); eGFR For Non-African Americans > 60 (> 60)
[2021-01-22 03:50] LABS: Chol/HDL Ratio 16.8 (0-4.9); Cholesterol 436 mg/dL (< 200); HDL Cholesterol 26 mg/dL (40-59); Triglycerides 904 mg/dL (< 150)
[2021-01-22 03:53] LABS: Thyroid Stimulating Hormone < 0.010 mcIU/mL (0.340-5.600)
[2021-01-22] MEDS: Ringers Solution, Lactated 1,000 ML IVC SCH ×2 (04:59→17:28)
[2021-01-22] MEDS: *HR* OxyCODONE Immed Rel 5 MG TABLET PO PRN ×2 (05:02→20:02)
[2021-01-22] MEDS: *HR* Heparin 5,000 UNIT/ML VIAL SQ SCH ×2 (05:04→17:29)
[2021-01-22] MEDS: Insulin LISPRO 300 UNITS/3 ML VIAL SUBQ SCH ×3 (05:43→17:33)
[2021-01-22 09:20] LABS: Triiodothyronine (T3) Free 2.51 pg/mL (2.50-3.90)
[2021-01-22] MEDS ORDERED: Isovue-370 500 ML BOTTLE IVP ONE (10:14)
[2021-01-22] MEDS: Pantoprazole 40 MG VIAL IVP SCH (13:46)
[2021-01-22] MEDS: Levothyroxine 25 MCG TABLET PO SCH (13:46)
[2021-01-22] MEDS: Fenofibrate 54 MG TABLET PO SCH (13:47)
[2021-01-22] MEDS: Azithromycin 250 MG TABLET PO SCH (13:47)
[2021-01-22 16:28] LABS: Bilirubin,Urine Negative (Negative); Blood,Urine Trace (Negative); Budding Yeast,Urine Moderate per hpf (None Seen); Clarity,Urine Turbid (Clear); Color,Urine Light-Yellow (Yellow); Glucose,Urine (UA) >=1000 mg/dL (Normal); Ketones,Urine 40 mg/dL (Negative); Leukocyte Esterase,Urine Large (Negative); Nitrite,Urine Negative (Negative); Protein,Urine Trace mg/dL (Neg-Trace); RBC,Urine 50-100 per hpf (0-3); Specific Gravity,Urine 1.025 (1.010-1.025); Urobilinogen,Urine Normal (Normal); WBC,Urine TNTC per hpf (0-3)
[2021-01-22] MEDS: Ondansetron 4 MG/2 ML VIAL IVP PRN (20:02)
[2021-01-22] MEDS ORDERED: Levalbuterol Neb 0.63 MG/3 ML IH PRN (23:05)
[2021-01-23] MEDS: Insulin LISPRO 300 UNITS/3 ML VIAL SUBQ SCH ×4 (00:53→18:51)
[2021-01-23] MEDS: Piperacillin/Tazobactam 3.375 GM in 0.9 % Sodium Chloride Mini Bag 100 ML IVPB SCH ×3 (00:58→16:37)
[2021-01-23 03:21] LABS: Basophils # 0.1 K/mcL (0.0-0.2); Basophils % 0.5 %; Eosinophils # 0.2 K/mcL (0.0-0.6); Eosinophils % 1.3 %; Hematocrit 37.7 % (37.5-50.1); Hemoglobin 11.7 g/dL (12.9-16.9); Immature Granulocytes % 0.8 % (0-4); Lymphocytes # 2.8 K/mcL (0.6-4.6); Lymphocytes % 21.2 %; Mean Corpuscular Hemoglobin 29.8 pg (28.0-33.3); Mean Corpuscular Volume 95.9 fL (83.0-100.0); Mean Platelet Volume 11.1 fL (9.4-12.4); Monocytes # 1.3 K/mcL (0.0-1.3); Monocytes % 9.6 %; Neutrophils # 8.8 K/mcL (1.6-8.9); Platelet Count 277 K/mcL (140-400); Red Blood Count 3.93 M/mcL (4.19-5.50); Red Cell Distribution Width 13.5 % (11.5-14.5); Segmented Neutrophils % 66.6 %; White Blood Count 13.2 K/mcL (4.3-11.1)
[2021-01-23 03:40] LABS: Alanine Aminotransferase 9 Units/L (7-52); Albumin 3.6 g/dL (3.5-5.7); Albumin/Globulin Ratio 1.2 (1.1-2.2); Alkaline Phosphatase 52 Units/L (34-104); Aspartate Amino Transferase 14 Units/L (13-39); BUN/Creatinine Ratio 17 (6-26); Bilirubin,Total 0.4 mg/dL (0.3-1.0); Blood Urea Nitrogen 18 mg/dL (6-20); Calcium 9.3 mg/dL (8.6-10.3); Carbon Dioxide 19 mEq/L (23-29); Chloride 102 mEq/L (98-107); Glucose 182 mg/dL (70-105); Osmolality,Calculated 297 (280-300); Sodium 140 mEq/L (136-145); Total Protein 6.6 g/dL (6.4-8.9); eGFR For African Americans > 60 (> 60); eGFR For Non-African Americans > 60 (> 60)
[2021-01-23] MEDS: Ondansetron 4 MG/2 ML VIAL IVP PRN (04:33)
[2021-01-23] MEDS: Ringers Solution, Lactated 1,000 ML IVC SCH (04:37)
[2021-01-23] MEDS: *HR* Heparin 5,000 UNIT/ML VIAL SQ SCH (05:55)
[2021-01-23] MEDS: Pantoprazole 40 MG VIAL IVP SCH (09:07)
[2021-01-23] MEDS: Topiramate 25 MG TABLET PO SCH ×2 (09:10→22:02)
[2021-01-23] MEDS: carvediloL 6.25 MG TABLET PO SCH ×2 (09:11→22:02)
[2021-01-23] MEDS: Azithromycin 250 MG TABLET PO SCH (09:11)
[2021-01-23] MEDS: Fenofibrate 54 MG TABLET PO SCH (09:12)
[2021-01-23] MEDS: Gabapentin 400 MG CAPSULE PO SCH ×3 (09:13→22:03)
[2021-01-23] MEDS: Levothyroxine 25 MCG TABLET PO SCH (10:42)
[2021-01-23] MEDS: *HR* Rivaroxaban 10 MG TABLET PO SCH (16:38)
[2021-01-23] MEDS: *HR* OxyCODONE Immed Rel 5 MG TABLET PO PRN (22:11)
[2021-01-24] MEDS: Piperacillin/Tazobactam 3.375 GM in 0.9 % Sodium Chloride Mini Bag 100 ML IVPB SCH ×3 (00:36→17:12)
[2021-01-24] MEDS: Insulin LISPRO 300 UNITS/3 ML VIAL SUBQ SCH ×5 (07:04→20:41)
[2021-01-24] MEDS: Gabapentin 400 MG CAPSULE PO SCH ×3 (07:49→20:14)
[2021-01-24] MEDS: Azithromycin 250 MG TABLET PO SCH (07:49)
[2021-01-24] MEDS: Fenofibrate 54 MG TABLET PO SCH (07:49)
[2021-01-24] MEDS: carvediloL 6.25 MG TABLET PO SCH ×2 (07:50→20:14)
[2021-01-24] MEDS: Topiramate 25 MG TABLET PO SCH ×2 (07:50→20:13)
[2021-01-24] MEDS: Pantoprazole 40 MG VIAL IVP SCH (07:51)
[2021-01-24 08:04] LABS: Basophils # 0.1 K/mcL (0.0-0.2); Basophils % 0.5 %; Eosinophils # 0.5 K/mcL (0.0-0.6); Hematocrit 37.2 % (37.5-50.1); Hemoglobin 12.2 g/dL (12.9-16.9); Immature Granulocytes % 0.9 % (0-4); Lymphocytes # 3.7 K/mcL (0.6-4.6); Lymphocytes % 29.1 %; Mean Corpuscular HGB Conc 32.8 g/dL (31.6-35.5); Mean Corpuscular Hemoglobin 30.2 pg (28.0-33.3); Mean Corpuscular Volume 92.1 fL (83.0-100.0); Mean Platelet Volume 10.9 fL (9.4-12.4); Monocytes # 1.4 K/mcL (0.0-1.3); Monocytes % 11.2 %; Neutrophils # 6.9 K/mcL (1.6-8.9); Platelet Count 317 K/mcL (140-400); Red Blood Count 4.04 M/mcL (4.19-5.50); Red Cell Distribution Width 13.2 % (11.5-14.5); Segmented Neutrophils % 54.3 %; White Blood Count 12.8 K/mcL (4.3-11.1)
[2021-01-24 08:20] LABS: Alanine Aminotransferase 30 Units/L (7-52); Albumin 3.3 g/dL (3.5-5.7); Albumin/Globulin Ratio 1.1 (1.1-2.2); Alkaline Phosphatase 117 Units/L (34-104); Aspartate Amino Transferase 67 Units/L (13-39); BUN/Creatinine Ratio 18 (6-26); Bilirubin,Total 0.4 mg/dL (0.3-1.0); Blood Urea Nitrogen 18 mg/dL (6-20); Carbon Dioxide 25 mEq/L (23-29); Chloride 101 mEq/L (98-107); Globulin 2.9 g/dL (2.4-3.5); Glucose 170 mg/dL (70-105); Osmolality,Calculated 296 (280-300); Potassium 3.7 mEq/L (3.5-5.1); Sodium 140 mEq/L (136-145); Total Protein 6.2 g/dL (6.4-8.9); eGFR For African Americans > 60 (> 60); eGFR For Non-African Americans > 60 (> 60)
[2021-01-24] MEDS: *HR* Rivaroxaban 10 MG TABLET PO SCH (17:12)
[2021-01-24] MEDS: *HR* OxyCODONE Immed Rel 5 MG TABLET PO PRN (20:14)
[2021-01-24] MEDS ORDERED: Pantoprazole 40 MG VIAL IVP SCH (21:00)
[2021-01-25] MEDS: Piperacillin/Tazobactam 3.375 GM in 0.9 % Sodium Chloride Mini Bag 100 ML IVPB SCH ×4 (00:49→23:40)
[2021-01-25] MEDS: *HR* OxyCODONE Immed Rel 5 MG TABLET PO PRN ×2 (02:55→20:25)
[2021-01-25 06:23] LABS: Basophils # 0.1 K/mcL (0.0-0.2); Basophils % 0.6 %; Eosinophils # 0.6 K/mcL (0.0-0.6); Eosinophils % 3.9 %; Hematocrit 36.2 % (37.5-50.1); Hemoglobin 11.6 g/dL (12.9-16.9); Immature Granulocytes % 1.7 % (0-4); Lymphocytes # 4.5 K/mcL (0.6-4.6); Lymphocytes % 28.7 %; Mean Corpuscular Hemoglobin 29.1 pg (28.0-33.3); Mean Platelet Volume 11.2 fL (9.4-12.4); Monocytes # 1.9 K/mcL (0.0-1.3); Neutrophils # 8.3 K/mcL (1.6-8.9); Platelet Count 320 K/mcL (140-400); Red Blood Count 3.98 M/mcL (4.19-5.50); Red Cell Distribution Width 13.2 % (11.5-14.5); Segmented Neutrophils % 53.1 %; White Blood Count 15.7 K/mcL (4.3-11.1)
[2021-01-25 06:49] LABS: Alanine Aminotransferase 20 Units/L (7-52); Albumin 3.4 g/dL (3.5-5.7); Albumin/Globulin Ratio 1.3 (1.1-2.2); Alkaline Phosphatase 100 Units/L (34-104); Aspartate Amino Transferase 19 Units/L (13-39); BUN/Creatinine Ratio 16 (6-26); Bilirubin,Total 0.4 mg/dL (0.3-1.0); Blood Urea Nitrogen 21 mg/dL (6-20); Carbon Dioxide 25 mEq/L (23-29); Chloride 100 mEq/L (98-107); Globulin 2.7 g/dL (2.4-3.5); Glucose 393 mg/dL (70-105); Osmolality,Calculated 299 (280-300); Potassium 3.8 mEq/L (3.5-5.1); Sodium 135 mEq/L (136-145); Total Protein 6.1 g/dL (6.4-8.9); eGFR For African Americans > 60 (> 60); eGFR For Non-African Americans 56 (> 60)
[2021-01-25] MEDS ORDERED: Piperacillin/Tazobactam 3.375 GM VIAL ONE (07:46)
[2021-01-25] MEDS: Insulin LISPRO 300 UNITS/3 ML VIAL SUBQ SCH ×4 (07:52→21:04)
[2021-01-25] MEDS: carvediloL 6.25 MG TABLET PO SCH ×2 (07:53→20:25)
[2021-01-25] MEDS: Azithromycin 250 MG TABLET PO SCH (07:53)
[2021-01-25] MEDS: Fenofibrate 54 MG TABLET PO SCH (07:53)
[2021-01-25] MEDS: Gabapentin 400 MG CAPSULE PO SCH ×3 (07:53→20:24)
[2021-01-25] MEDS: Topiramate 25 MG TABLET PO SCH ×2 (07:55→20:24)
[2021-01-25] MEDS ORDERED: 0.9 % Sodium Chloride 1,000 ML IVC SCH (08:30)
[2021-01-25] MEDS: Pantoprazole 40 MG VIAL IVP SCH (08:39)
[2021-01-25 08:47] LABS: Calcium 8.8 mg/dL (8.6-10.3)
[2021-01-25] MEDS: *HR* Rivaroxaban 10 MG TABLET PO SCH (16:41)
[2021-01-26 02:14] LABS: Basophils # 0.1 K/mcL (0.0-0.2); Basophils % 0.8 %; Eosinophils # 0.7 K/mcL (0.0-0.6); Eosinophils % 4.4 %; Hematocrit 34.1 % (37.5-50.1); Hemoglobin 11.3 g/dL (12.9-16.9); Immature Granulocytes % 1.6 % (0-4); Lymphocytes # 3.7 K/mcL (0.6-4.6); Lymphocytes % 25.3 %; Mean Corpuscular HGB Conc 33.1 g/dL (31.6-35.5); Mean Corpuscular Hemoglobin 29.8 pg (28.0-33.3); Monocytes # 1.6 K/mcL (0.0-1.3); Monocytes % 10.9 %; Neutrophils # 8.4 K/mcL (1.6-8.9); Platelet Count 321 K/mcL (140-400); Red Blood Count 3.79 M/mcL (4.19-5.50); White Blood Count 14.7 K/mcL (4.3-11.1)
[2021-01-26 02:32] LABS: BUN/Creatinine Ratio 12 (6-26); Blood Urea Nitrogen 15 mg/dL (6-20); Calcium 8.3 mg/dL (8.6-10.3); Carbon Dioxide 22 mEq/L (23-29); Chloride 102 mEq/L (98-107); Glucose 349 mg/dL (70-105); Osmolality,Calculated 293 (280-300); Potassium 4.1 mEq/L (3.5-5.1); Sodium 134 mEq/L (136-145); eGFR For African Americans > 60 (> 60); eGFR For Non-African Americans 58 (> 60)
[2021-01-26 05:36] VITALS: O2SAT 93
[2021-01-26 07:06] VITALS: BP 148/76; PULSE 82; TEMP 98.4
[2021-01-26] MEDS: Piperacillin/Tazobactam 3.375 GM in 0.9 % Sodium Chloride Mini Bag 100 ML IVPB SCH (08:32)
[2021-01-26] MEDS: Fenofibrate 54 MG TABLET PO SCH (08:33)
[2021-01-26] MEDS: Gabapentin 400 MG CAPSULE PO SCH (08:33)
[2021-01-26] MEDS: Azithromycin 250 MG TABLET PO SCH (08:33)
[2021-01-26] MEDS: Topiramate 25 MG TABLET PO SCH (08:34)
[2021-01-26] MEDS: carvediloL 6.25 MG TABLET PO SCH (08:34)
[2021-01-26] MEDS: Pantoprazole 40 MG VIAL IVP SCH (08:34)
[2021-01-26] MEDS: Insulin LISPRO 300 UNITS/3 ML VIAL SUBQ SCH (09:03)
== END 2021-01-26 11:49 | disposition home health service (06) | DRG 871 ==
LOC: 3ANU → SUATTDRO 19:58
PROVIDERS: ADMIT Internal Medicine; ATTEND Internal Medicine

== ENCOUNTER 2022-01-07 13:54 | Inpatient (IN) ==
[2022-01-07] MEDS ORDERED: 0.9 % Sodium Chloride 250 ML ONE ×2 (14:03→14:14)
[2022-01-07] MEDS ORDERED: Iopamidol - 370 500 ML MLS IVP ONE (14:12)
[2022-01-07 14:39] LABS: Basophils # 0.1 K/mcL (0.0-0.2); Basophils % 0.5 %; Eosinophils # 0.2 K/mcL (0.0-0.6); Eosinophils % 0.7 %; Hematocrit 32.4 % (37.5-50.1); Immature Granulocytes % 1.4 % (0-4); Lymphocytes # 3.3 K/mcL (0.6-4.6); Lymphocytes % 13.6 %; Mean Corpuscular HGB Conc 30.9 g/dL (31.6-35.5); Mean Corpuscular Hemoglobin 26.8 pg (28.0-33.3); Mean Corpuscular Volume 86.9 fL (83.0-100.0); Mean Platelet Volume 11.2 fL (9.4-12.4); Monocytes # 2.9 K/mcL (0.0-1.3); Neutrophils # 17.5 K/mcL (1.6-8.9); Platelet Count 318 K/mcL (140-400); Red Blood Count 3.73 M/mcL (4.19-5.50); Red Cell Distribution Width 19.8 % (11.5-14.5); Segmented Neutrophils % 71.8 %; White Blood Count 24.4 K/mcL (4.3-11.1)
[2022-01-07 14:51] LABS: Albumin 3.1 g/dL (3.5-5.7); Albumin/Globulin Ratio 1.2 (1.1-2.2); Bilirubin,Direct 0.2 mg/dL (0.0-0.2); Bilirubin,Indirect 0.3 mg/dL (0.0-1.0); Bilirubin,Total 0.5 mg/dL (0.3-1.0); Calcium 7.5 mg/dL (8.6-10.3); Globulin 2.5 g/dL (2.4-3.5); Potassium 5.4 mEq/L (3.5-5.1); Total Protein 5.6 g/dL (6.4-8.9); Troponin I 0.04 ng/mL (< 0.04)
[2022-01-07] MEDS ORDERED: 0.9 % Sodium Chloride 1,000 ML IV ONE (14:52)
[2022-01-07] MEDS ORDERED: Piperacillin/Tazobactam 3.375 GM in 0.9 % Sodium Chloride Mini Bag 100 ML IVPB ONE (14:52)
[2022-01-07] MEDS ORDERED: Vancomycin 1,250 MG/262.5 ML IV.SOLN IVPB ONE (15:00)
[2022-01-07 15:01] LABS: INR 1.3; Prothrombin Time 14.8 Seconds (9.4-12.1)
[2022-01-07 15:03] LABS: Activated Partial Thrombo Time 27.4 Seconds (26.0-36.0)
[2022-01-07] MEDS ORDERED: Albuterol 2.5 MG/3 ML NEBULIZER IH ONE (16:06)
[2022-01-07] MEDS ORDERED: 0.9 % Sodium Chloride 500 ML IV ONE (16:40)
[2022-01-07 17:15] LABS: Adenovirus F 40/41 PCR Not detected (Not detect); Astrovirus PCR Not detected (Not detect); C.difficile Toxin A/B Gene PCR Not detected (Not detect); Campylobacter by PCR Not detected (Not detect); Cryptosporidium by PCR Not detected (Not detect); Cyclospora cayetanensis PCR Not detected (Not detect); E. coli O157 by PCR Not detected (Not detect); Entamoeba histolytica PCR Not detected (Not detect); Enteroaggregative E.coli(EAEC) Not detected (Not detect); Enteropathogenic E.coli(EPEC) Not detected (Not detect); Enterotoxigenic E.coli (ETEC) Not detected (Not detect); Giardia lamblia PCR Not detected (Not detect); Norovirus GI/GII PCR Not detected (Not detect); Plesiomonas shigelloides PCR Not detected (Not detect); Rotavirus A PCR Not detected (Not detect); Salmonella PCR Not detected (Not detect); Sapovirus PCR Not detected (Not detect); Shig/EnteroinvasiveE coli EIEC Not detected (Not detect); Shigalike tox-prod E coli STEC Not detected (Not detect); Vibrio PCR Not detected (Not detect); Vibrio cholerae PCR Not detected (Not detect); Yersinia enterocolitica PCR Not detected (Not detect)
[2022-01-07] MEDS: Norepinephrine 4 MG/254 ML IV.SOLN IVC SCH (17:49)
[2022-01-07] MEDS ORDERED: Acetaminophen 325 MG TABLET PO PRN (20:22)
[2022-01-07] MEDS ORDERED: Naloxone 0.4 MG/ML INJ IVP PRN (20:22)
[2022-01-07 20:57] LABS: Phosphorous 8.2 mg/dL (2.7-4.5)
[2022-01-07] MEDS ORDERED: SODIUM ZIRCONIUM CYCLOSILICATE 5 GM POWD.PACK PO ONE (21:11)
[2022-01-07] MEDS ORDERED: 0.9 % Sodium Chloride 1,000 ML IVC ONE (21:12)
[2022-01-07] MEDS ORDERED: D5% in Water 1,000 ML IVC PRN (21:33)
[2022-01-07] MEDS ORDERED: *HR* Dextrose 50 % in Water (Syg) 50 ML SYRINGE IVP PRN (21:33)
[2022-01-07] MEDS ORDERED: Dextrose Gel 15 GM/37.5 ML TUBE PO PRN ×2 (21:33)
[2022-01-07] MEDS: Calcium Gluconate 1gm/50mL 1 GM/50 ML BAG IVPB SCH ×2 (21:46→23:49)
[2022-01-07 23:18] LABS: Hematocrit 36.5 % (37.5-50.1); Hemoglobin 11.2 g/dL (12.9-16.9)
[2022-01-07 23:39] LABS: Uric Acid 10.6 mg/dL (2.3-7.6)
[2022-01-08] MEDS: Insulin LISPRO 300 UNITS/3 ML VIAL SUBQ SCH ×5 (00:11→19:01)
[2022-01-08] MEDS: Piperacillin/Tazobactam 3.375 GM in 0.9 % Sodium Chloride Mini Bag 100 ML IVPB SCH ×2 (03:16→15:14)
[2022-01-08 05:49] LABS: Mean Corpuscular Hemoglobin 26.8 pg (28.0-33.3)
[2022-01-08 05:50] LABS: Hematocrit 33.3 % (37.5-50.1); Hemoglobin 10.2 g/dL (12.9-16.9); Mean Corpuscular HGB Conc 30.6 g/dL (31.6-35.5); Mean Corpuscular Volume 87.4 fL (83.0-100.0); Mean Platelet Volume 11.2 fL (9.4-12.4); Platelet Count 285 K/mcL (140-400); Red Blood Count 3.81 M/mcL (4.19-5.50); Red Cell Distribution Width 19.1 % (11.5-14.5); White Blood Count 27.5 K/mcL (4.3-11.1)
[2022-01-08] MEDS: Pantoprazole 40 MG VIAL IVP SCH ×2 (05:55→18:33)
[2022-01-08 05:59] LABS: INR 1.3; Prothrombin Time 14.3 Seconds (9.4-12.1)
[2022-01-08] MEDS ORDERED: 0.9 % Sodium Chloride 1,000 ML IVC ONE (06:22)
[2022-01-08 06:37] LABS: Anisocytosis 1+ (Not Present); Eosinophils # 0.3 K/mcL (0.0-0.6); Lymphocytes # 4.1 K/mcL (0.6-4.6); Monocytes # 2.2 K/mcL (0.0-1.3); Neutrophils # 20.9 K/mcL (1.6-8.9); Platelet Clumps Few (Not Present); Platelet Estimate Normal (Normal)
[2022-01-08 07:05] LABS: Calcium 6.6 mg/dL (8.6-10.3); Magnesium 1.8 mg/dL (1.6-2.6); Phosphorous 4.9 mg/dL (2.7-4.5); Potassium 3.9 mEq/L (3.5-5.1)
[2022-01-08 09:35] LABS: Hematocrit 34.7 % (37.5-50.1); Hemoglobin 10.8 g/dL (12.9-16.9)
[2022-01-08] MEDS ORDERED: Potassium Phosphate 44 MEQ in 0.9 % Sodium Chloride 250 ML IVPB PRN (11:05)
[2022-01-08] MEDS ORDERED: Ipratropium/Albuterol Neb 3 ML IH PRN (11:47)
[2022-01-08] MEDS: Norepinephrine 4 MG/254 ML IV.SOLN IVC SCH (12:40)
[2022-01-08] MEDS ORDERED: Calcium Gluconate 1gm/50mL 1 GM/50 ML BAG IVPB ONE (12:41)
[2022-01-08] MEDS: *HR* Heparin 5,000 UNIT/ML VIAL SQ SCH ×2 (12:44→22:30)
[2022-01-08 13:32] LABS: Bacteria,Urine Few per hpf (None-Few); Bilirubin,Urine Negative (Negative); Blood,Urine Moderate (Negative); Clarity,Urine Clear (Clear); Color,Urine Light-Yellow (Yellow); Glucose,Urine (UA) 500 mg/dL (Normal); Ketones,Urine Trace mg/dL (Negative); Leukocyte Esterase,Urine Small (Negative); Mucus,Urine Few per lpf (None-Few); Nitrite,Urine Negative (Negative); Protein,Urine 30 mg/dL (Neg-Trace); Specific Gravity,Urine 1.017 (1.010-1.025); Urobilinogen,Urine Normal (Normal)
[2022-01-08 13:38] LABS: Protein/Creatinine Ratio,Urine 0.77 mg/mg (0.00-0.20); Sodium, Urine 73.6 mEq/L
[2022-01-08] MEDS: Sodium Bicarbonate 150 MEQ in D5% in Water 1,000 ML IVC SCH (15:13)
[2022-01-08 15:27] LABS: VBG HCO3 17 mEq/L (21-27); VBG PCO2 39 mmHg (41-51); VBG PH 7.26 pH Units (7.32-7.42); VBG PO2 58 mmHg (25-50)
[2022-01-08] MEDS ORDERED: Vancomycin 1,250 MG/262.5 ML IV.SOLN IVPB ONE (16:00)
[2022-01-08 16:11] LABS: Troponin I 0.89 ng/mL (< 0.04)
[2022-01-08 20:33] LABS: VBG Ionized Calcium 1.15 mmol/L (1.15-1.35)
[2022-01-08 20:34] LABS: Basophils # 0.1 K/mcL (0.0-0.2); Basophils % 0.4 %; Eosinophils # 0.6 K/mcL (0.0-0.6); Eosinophils % 3.3 %; Hemoglobin 9.8 g/dL (12.9-16.9); Immature Granulocytes % 0.8 % (0-4); Lymphocytes # 2.3 K/mcL (0.6-4.6); Lymphocytes % 12.6 %; Mean Corpuscular HGB Conc 31.6 g/dL (31.6-35.5); Mean Corpuscular Hemoglobin 27.6 pg (28.0-33.3); Mean Corpuscular Volume 87.3 fL (83.0-100.0); Mean Platelet Volume 10.7 fL (9.4-12.4); Monocytes # 1.9 K/mcL (0.0-1.3); Monocytes % 10.2 %; Neutrophils # 13.4 K/mcL (1.6-8.9); Platelet Count 243 K/mcL (140-400); Red Blood Count 3.55 M/mcL (4.19-5.50); Segmented Neutrophils % 72.7 %; White Blood Count 18.4 K/mcL (4.3-11.1)
[2022-01-08 20:53] LABS: Calcium 7.2 mg/dL (8.6-10.3); Magnesium 1.7 mg/dL (1.6-2.6); Phosphorous 2.7 mg/dL (2.7-4.5); Potassium 4.1 mEq/L (3.5-5.1)
[2022-01-08] MEDS ORDERED: Insulin LISPRO 300 UNITS/3 ML VIAL SUBQ SCH (21:00)
[2022-01-08] MEDS ORDERED: Insulin DETEMIR 100 UNIT/ML X5UNITS SUBQ SCH (21:00)
[2022-01-09] MEDS: Sodium Bicarbonate 150 MEQ in D5% in Water 1,000 ML IVC SCH ×2 (02:50→12:26)
[2022-01-09] MEDS: Piperacillin/Tazobactam 3.375 GM in 0.9 % Sodium Chloride Mini Bag 100 ML IVPB SCH ×2 (03:18→14:54)
[2022-01-09] MEDS: Norepinephrine 4 MG/254 ML IV.SOLN IVC SCH (03:23)
[2022-01-09 04:33] LABS: Basophils # 0.1 K/mcL (0.0-0.2); Basophils % 0.5 %; Eosinophils % 5.2 %; Hematocrit 32.5 % (37.5-50.1); Hemoglobin 10.3 g/dL (12.9-16.9); Immature Granulocytes % 0.9 % (0-4); Lymphocytes # 4.1 K/mcL (0.6-4.6); Lymphocytes % 20.3 %; Mean Corpuscular HGB Conc 31.7 g/dL (31.6-35.5); Mean Corpuscular Hemoglobin 27.2 pg (28.0-33.3); Mean Corpuscular Volume 85.8 fL (83.0-100.0); Mean Platelet Volume 10.7 fL (9.4-12.4); Monocytes # 2.3 K/mcL (0.0-1.3); Monocytes % 11.3 %; Neutrophils # 12.5 K/mcL (1.6-8.9); Platelet Count 253 K/mcL (140-400); Red Blood Count 3.79 M/mcL (4.19-5.50); Red Cell Distribution Width 18.8 % (11.5-14.5); Segmented Neutrophils % 61.8 %; White Blood Count 20.2 K/mcL (4.3-11.1)
[2022-01-09 04:42] LABS: INR 1.3
[2022-01-09 04:44] LABS: Calcium 7.4 mg/dL (8.6-10.3); Magnesium 1.9 mg/dL (1.6-2.6); Phosphorous 2.4 mg/dL (2.7-4.5); Potassium 3.6 mEq/L (3.5-5.1)
[2022-01-09] MEDS ORDERED: Gabapentin 400 MG CAPSULE PO SCH (09:00)
[2022-01-09] MEDS: Insulin LISPRO 300 UNITS/3 ML VIAL SUBQ SCH ×4 (09:12→21:41)
[2022-01-09] MEDS: *HR* Heparin 5,000 UNIT/ML VIAL SQ SCH (11:00)
[2022-01-09] MEDS ORDERED: Acetaminophen 325 MG TABLET PO PRN (11:36)
[2022-01-09] MEDS ORDERED: Dextrose Gel 15 GM/37.5 ML TUBE PO PRN ×2 (11:36)
[2022-01-09] MEDS ORDERED: Potassium Phosphate 44 MEQ in 0.9 % Sodium Chloride 250 ML IVPB PRN (11:36)
[2022-01-09] MEDS ORDERED: *HR* Dextrose 50 % in Water (Syg) 50 ML SYRINGE IVP PRN (11:36)
[2022-01-09] MEDS ORDERED: D5% in Water 1,000 ML IVC PRN (11:36)
[2022-01-09] MEDS ORDERED: Ipratropium/Albuterol Neb 3 ML IH PRN (11:36)
[2022-01-09] MEDS ORDERED: Naloxone 0.4 MG/ML INJ IVP PRN (11:36)
[2022-01-09] MEDS: Gabapentin 400 MG CAPSULE PO SCH ×2 (14:54→20:04)
[2022-01-09] MEDS: Pantoprazole 40 MG VIAL IVP SCH (17:37)
[2022-01-09] MEDS ORDERED: *HR* Heparin 5,000 UNIT/ML VIAL SQ SCH (22:45)
[2022-01-09] MEDS: Insulin DETEMIR 100 UNIT/ML X5UNITS SUBQ SCH (23:00)
[2022-01-10] MEDS: Piperacillin/Tazobactam 3.375 GM in 0.9 % Sodium Chloride Mini Bag 100 ML IVPB SCH ×2 (03:32→15:49)
[2022-01-10] MEDS: *HR* Heparin 5,000 UNIT/ML VIAL SQ SCH ×2 (06:26→17:54)
[2022-01-10] MEDS: Pantoprazole 40 MG VIAL IVP SCH ×3 (06:27→19:54)
[2022-01-10] MEDS: Sodium Bicarbonate 150 MEQ in D5% in Water 1,000 ML IVC SCH ×4 (07:34→21:15)
[2022-01-10] MEDS: Insulin LISPRO 300 UNITS/3 ML VIAL SUBQ SCH ×4 (08:00→21:11)
[2022-01-10] MEDS: Gabapentin 400 MG CAPSULE PO SCH ×3 (08:01→21:09)
[2022-01-10 12:15] LABS: BUN/Creatinine Ratio 20 (6-26); Blood Urea Nitrogen 27 mg/dL (8-23); Calcium 7.3 mg/dL (8.6-10.3); Carbon Dioxide 24 mEq/L (23-29); Chloride 105 mEq/L (98-107); Glucose 203 mg/dL (70-105); Magnesium 1.8 mg/dL (1.6-2.6); Osmolality,Calculated 295 (280-300); Phosphorous 1.6 mg/dL (2.7-4.5); Potassium 4.5 mEq/L (3.5-5.1); Sodium 137 mEq/L (136-145); eGFR For African Americans > 60 (> 60); eGFR For Non-African Americans 54 (> 60)
[2022-01-10 12:24] LABS: Basophils # 0.1 K/mcL (0.0-0.2); Basophils % 0.5 %; Eosinophils # 0.9 K/mcL (0.0-0.6); Eosinophils % 5.2 %; Immature Granulocytes % 0.5 % (0-4); Lymphocytes # 3.5 K/mcL (0.6-4.6); Lymphocytes % 19.6 %; Mean Corpuscular HGB Conc 31.4 g/dL (31.6-35.5); Mean Corpuscular Hemoglobin 26.9 pg (28.0-33.3); Mean Corpuscular Volume 85.6 fL (83.0-100.0); Monocytes # 1.9 K/mcL (0.0-1.3); Monocytes % 10.7 %; Neutrophils # 11.4 K/mcL (1.6-8.9); Platelet Count 283 K/mcL (140-400); Red Blood Count 4.09 M/mcL (4.19-5.50); Red Cell Distribution Width 18.9 % (11.5-14.5); Segmented Neutrophils % 63.5 %; White Blood Count 17.9 K/mcL (4.3-11.1)
[2022-01-10 12:30] LABS: VBG Ionized Calcium 0.99 mmol/L (1.15-1.35)
[2022-01-10 12:32] LABS: INR 1.3
[2022-01-10] MEDS: Insulin DETEMIR 100 UNIT/ML X5UNITS SUBQ SCH (21:15)
[2022-01-11] MEDS: Piperacillin/Tazobactam 3.375 GM in 0.9 % Sodium Chloride Mini Bag 100 ML IVPB SCH ×2 (02:03→16:54)
[2022-01-11] MEDS: Pantoprazole 40 MG VIAL IVP SCH (06:13)
[2022-01-11] MEDS: *HR* Heparin 5,000 UNIT/ML VIAL SQ SCH ×2 (06:13→16:50)
[2022-01-11 08:00] LABS: Basophils # 0.1 K/mcL (0.0-0.2); Basophils % 0.5 %; Eosinophils # 1.1 K/mcL (0.0-0.6); Eosinophils % 6.6 %; Hematocrit 35.3 % (37.5-50.1); Hemoglobin 11.2 g/dL (12.9-16.9); Immature Granulocytes % 0.8 % (0-4); Lymphocytes # 4.2 K/mcL (0.6-4.6); Lymphocytes % 24.7 %; Mean Corpuscular HGB Conc 31.7 g/dL (31.6-35.5); Mean Corpuscular Hemoglobin 27.4 pg (28.0-33.3); Mean Corpuscular Volume 86.3 fL (83.0-100.0); Mean Platelet Volume 10.5 fL (9.4-12.4); Monocytes # 1.9 K/mcL (0.0-1.3); Neutrophils # 9.5 K/mcL (1.6-8.9); Platelet Count 296 K/mcL (140-400); Red Blood Count 4.09 M/mcL (4.19-5.50); Red Cell Distribution Width 18.8 % (11.5-14.5); Segmented Neutrophils % 56.4 %; White Blood Count 16.8 K/mcL (4.3-11.1)
[2022-01-11 08:11] LABS: INR 1.1; Prothrombin Time 12.8 Seconds (9.4-12.1)
[2022-01-11 08:19] LABS: Calcium 7.2 mg/dL (8.6-10.3); Magnesium 1.8 mg/dL (1.6-2.6); Phosphorous 2.2 mg/dL (2.7-4.5); Potassium 4.4 mEq/L (3.5-5.1)
[2022-01-11] MEDS ORDERED: lisinopriL 10 MG TABLET PO SCH (09:00)
[2022-01-11] MEDS: Cyanocobalamin (B-12) 1,000 MCG TABLET PO SCH (09:51)
[2022-01-11] MEDS: Gabapentin 400 MG CAPSULE PO SCH ×3 (09:52→20:05)
[2022-01-11] MEDS: Fenofibrate 54 MG TABLET PO SCH (09:52)
[2022-01-11] MEDS: Insulin LISPRO 300 UNITS/3 ML VIAL SUBQ SCH ×4 (09:57→20:07)
[2022-01-11] MEDS: Levothyroxine 25 MCG TABLET PO SCH (10:06)
[2022-01-11 14:36] VITALS: O2SAT 93
[2022-01-11] MEDS: Sodium Bicarbonate 150 MEQ in D5% in Water 1,000 ML IVC SCH (17:00)
[2022-01-11] MEDS: Insulin DETEMIR 100 UNIT/ML X5UNITS SUBQ SCH (20:08)
[2022-01-12] MEDS: Piperacillin/Tazobactam 3.375 GM in 0.9 % Sodium Chloride Mini Bag 100 ML IVPB SCH (02:58)
[2022-01-12 03:04] LABS: Basophils # 0.1 K/mcL (0.0-0.2); Basophils % 0.8 %; Eosinophils # 1.2 K/mcL (0.0-0.6); Eosinophils % 7.9 %; Hematocrit 37.1 % (37.5-50.1); Hemoglobin 11.7 g/dL (12.9-16.9); Immature Granulocytes % 1.3 % (0-4); Lymphocytes # 4.6 K/mcL (0.6-4.6); Lymphocytes % 30.1 %; Mean Corpuscular HGB Conc 31.5 g/dL (31.6-35.5); Mean Corpuscular Hemoglobin 27.3 pg (28.0-33.3); Mean Corpuscular Volume 86.7 fL (83.0-100.0); Mean Platelet Volume 10.8 fL (9.4-12.4); Monocytes # 1.7 K/mcL (0.0-1.3); Monocytes % 11.1 %; Neutrophils # 7.4 K/mcL (1.6-8.9); Platelet Count 333 K/mcL (140-400); Red Blood Count 4.28 M/mcL (4.19-5.50); Red Cell Distribution Width 18.9 % (11.5-14.5); Segmented Neutrophils % 48.8 %; White Blood Count 15.2 K/mcL (4.3-11.1)
[2022-01-12 03:21] LABS: Calcium 7.4 mg/dL (8.6-10.3); Magnesium 1.7 mg/dL (1.6-2.6); Phosphorous 2.5 mg/dL (2.7-4.5); Potassium 4.9 mEq/L (3.5-5.1)
[2022-01-12] MEDS: *HR* Heparin 5,000 UNIT/ML VIAL SQ SCH (06:07)
[2022-01-12] MEDS: Levothyroxine 25 MCG TABLET PO SCH (06:08)
[2022-01-12] MEDS: Cyanocobalamin (B-12) 1,000 MCG TABLET PO SCH (07:55)
[2022-01-12] MEDS: Gabapentin 400 MG CAPSULE PO SCH (07:55)
[2022-01-12] MEDS: Fenofibrate 54 MG TABLET PO SCH (07:56)
[2022-01-12 08:03] VITALS: BP 111/72; PULSE 81; TEMP 98
[2022-01-12] MEDS: Insulin LISPRO 300 UNITS/3 ML VIAL SUBQ SCH ×2 (08:48→12:24)
[2022-01-12] MEDS ORDERED: Piperacillin/Tazobactam 3.375 GM in 0.9 % Sodium Chloride Mini Bag 100 ML IVPB SCH (16:00)
== END 2022-01-12 13:40 | disposition home health service (06) | DRG 871 ==
LOC: EMEROOARM 13:54 → ICNU 21:32 → SUATTDRO 21:32 → ICNU 22:52 → 3ANU 01-09 15:39
PROVIDERS: ADMIT Internal Medicine; ATTEND Hospitalist

== ENCOUNTER 2022-01-14 13:01 | Observation (INO) ==
[2022-01-14] MEDS ORDERED: 0.9 % Sodium Chloride 1,000 ML IVC ONE (13:30)
[2022-01-14] MEDS ORDERED: Vancomycin 500 MG in 0.9 % Sodium Chloride 250 ML IVPB ONE (13:30)
[2022-01-14] MEDS ORDERED: Piperacillin/Tazobactam 3.375 GM in 0.9 % Sodium Chloride Mini Bag 100 ML IVPB ONE (13:30)
[2022-01-14] MEDS ORDERED: Vancomycin 500 MG in 0.9 % Sodium Chloride Mini Bag 100 ML IVPB ONE (14:00)
[2022-01-14 14:14] LABS: Hematocrit 36.2 % (37.5-50.1); Mean Corpuscular HGB Conc 30.4 g/dL (31.6-35.5); Mean Corpuscular Hemoglobin 27.2 pg (28.0-33.3); Mean Corpuscular Volume 89.6 fL (83.0-100.0); Mean Platelet Volume 10.5 fL (9.4-12.4); Platelet Count 412 K/mcL (140-400); Red Blood Count 4.04 M/mcL (4.19-5.50); Red Cell Distribution Width 19.2 % (11.5-14.5); White Blood Count 21.3 K/mcL (4.3-11.1)
[2022-01-14 14:39] LABS: Albumin 2.7 g/dL (3.5-5.7); Bilirubin,Direct 0.1 mg/dL (0.0-0.2); Bilirubin,Indirect 0.3 mg/dL (0.0-1.0); Bilirubin,Total 0.4 mg/dL (0.3-1.0); Calcium 7.6 mg/dL (8.6-10.3); Globulin 2.6 g/dL (2.4-3.5); Potassium 4.5 mEq/L (3.5-5.1); Total Protein 5.3 g/dL (6.4-8.9); Troponin I 0.05 ng/mL (< 0.04)
[2022-01-14] MEDS ORDERED: 0.9 % Sodium Chloride 500 ML IVC ONE (15:10)
[2022-01-14] MEDS ORDERED: D5% in Water 1,000 ML IVC PRN (15:42)
[2022-01-14] MEDS ORDERED: *HR* Dextrose 50 % in Water (Syg) 50 ML SYRINGE IVP PRN (15:42)
[2022-01-14] MEDS ORDERED: Dextrose Gel 15 GM/37.5 ML TUBE PO PRN ×2 (15:42)
[2022-01-14] MEDS ORDERED: Acetaminophen 325 MG TABLET PO PRN (15:42)
[2022-01-14] MEDS ORDERED: Ondansetron 4 MG/2 ML VIAL IVP PRN (15:42)
[2022-01-14] MEDS ORDERED: Naloxone 0.4 MG/ML INJ IVP PRN (15:42)
[2022-01-14] MEDS ORDERED: *HR* HYDROcodone/Acet 5/325 mg TABLET PO PRN (15:47)
[2022-01-14] MEDS ORDERED: Ipratropium/Albuterol Neb 3 ML IH PRN (16:01)
[2022-01-14 16:02] LABS: Bilirubin,Urine Negative (Negative); Blood,Urine Small (Negative); Budding Yeast,Urine Moderate per hpf (None Seen); Clarity,Urine Turbid (Clear); Color,Urine Yellow (Yellow); Glucose,Urine (UA) 300 mg/dL (Normal); Hyaline Casts,Urine Few per lpf (None Seen); Ketones,Urine Negative (Negative); Leukocyte Esterase,Urine Large (Negative); Mucus,Urine Few per lpf (None-Few); Nitrite,Urine Negative (Negative); Protein,Urine 70 mg/dL (Neg-Trace); Specific Gravity,Urine 1.021 (1.010-1.025); Squamous Epithelial Cell,Urine Few per hpf (None-Few); Urobilinogen,Urine Normal (Normal); WBC,Urine TNTC per hpf (0-3)
[2022-01-14] MEDS: Insulin LISPRO 300 UNITS/3 ML VIAL SUBQ SCH (19:50)
[2022-01-14] MEDS: *HR* Heparin 5,000 UNIT/ML VIAL SQ SCH (19:50)
[2022-01-14] MEDS: Doxycycline 100 MG CAPSULE PO SCH (19:59)
[2022-01-14] MEDS: Insulin DETEMIR 100 UNIT/ML X5UNITS SUBQ SCH (21:46)
[2022-01-15] MEDS: *HR* Heparin 5,000 UNIT/ML VIAL SQ SCH ×2 (05:25→17:15)
[2022-01-15] MEDS: Insulin LISPRO 300 UNITS/3 ML VIAL SUBQ SCH ×3 (09:27→17:20)
[2022-01-15] MEDS: cefTRIAXone 1,000 MG in Water for inj. (sterile) 10 ML IVP SCH (09:34)
[2022-01-15] MEDS: Insulin DETEMIR 100 UNIT/ML X5UNITS SUBQ SCH ×2 (09:35→20:28)
[2022-01-15] MEDS: Doxycycline 100 MG CAPSULE PO SCH ×2 (09:35→20:28)
[2022-01-15 09:36] LABS: Basophils # 0.2 K/mcL (0.0-0.2); Basophils % 0.8 %; Eosinophils # 1.1 K/mcL (0.0-0.6); Eosinophils % 6.1 %; Hematocrit 37.9 % (37.5-50.1); Hemoglobin 11.7 g/dL (12.9-16.9); Immature Granulocytes % 2.9 % (0-4); Lymphocytes # 3.7 K/mcL (0.6-4.6); Mean Corpuscular HGB Conc 30.9 g/dL (31.6-35.5); Mean Corpuscular Hemoglobin 27.3 pg (28.0-33.3); Mean Corpuscular Volume 88.6 fL (83.0-100.0); Mean Platelet Volume 10.1 fL (9.4-12.4); Monocytes # 1.7 K/mcL (0.0-1.3); Monocytes % 9.4 %; Neutrophils # 11.1 K/mcL (1.6-8.9); Platelet Count 458 K/mcL (140-400); Red Blood Count 4.28 M/mcL (4.19-5.50); Red Cell Distribution Width 18.9 % (11.5-14.5); Segmented Neutrophils % 60.8 %; White Blood Count 18.3 K/mcL (4.3-11.1)
[2022-01-15 09:56] LABS: Calcium 8.1 mg/dL (8.6-10.3); Magnesium 1.7 mg/dL (1.6-2.6); Potassium 5.2 mEq/L (3.5-5.1)
[2022-01-15] MEDS ORDERED: tiZANidine 4 MG TABLET PO PRN (13:26)
[2022-01-15] MEDS: Gabapentin 300 MG CAPSULE PO SCH ×2 (14:57→20:28)
[2022-01-15] MEDS: carvediloL 6.25 MG TABLET PO SCH (17:15)
[2022-01-16 03:18] LABS: Basophils # 0.1 K/mcL (0.0-0.2); Basophils % 0.8 %; Eosinophils # 1.1 K/mcL (0.0-0.6); Eosinophils % 6.2 %; Hematocrit 36.8 % (37.5-50.1); Hemoglobin 11.4 g/dL (12.9-16.9); Immature Granulocytes % 3.2 % (0-4); Lymphocytes # 4.7 K/mcL (0.6-4.6); Lymphocytes % 27.5 %; Mean Corpuscular Hemoglobin 27.7 pg (28.0-33.3); Mean Corpuscular Volume 89.3 fL (83.0-100.0); Mean Platelet Volume 10.3 fL (9.4-12.4); Monocytes # 1.4 K/mcL (0.0-1.3); Monocytes % 8.4 %; Neutrophils # 9.1 K/mcL (1.6-8.9); Platelet Count 496 K/mcL (140-400); Red Blood Count 4.12 M/mcL (4.19-5.50); Red Cell Distribution Width 18.8 % (11.5-14.5); Segmented Neutrophils % 53.9 %; White Blood Count 16.9 K/mcL (4.3-11.1)
[2022-01-16 03:36] LABS: Calcium 8.1 mg/dL (8.6-10.3); Potassium 4.6 mEq/L (3.5-5.1)
[2022-01-16] MEDS: *HR* Heparin 5,000 UNIT/ML VIAL SQ SCH ×2 (05:38→17:22)
[2022-01-16] MEDS: Levothyroxine 25 MCG TABLET PO SCH (05:39)
[2022-01-16] MEDS ORDERED: Ergocalciferol (VIT D2) 50,000 UNIT (1.25MG) CAP PO SCH (09:00)
[2022-01-16] MEDS: Cyanocobalamin (B-12) 1,000 MCG TABLET PO SCH (09:03)
[2022-01-16] MEDS: carvediloL 6.25 MG TABLET PO SCH ×2 (09:03→17:22)
[2022-01-16] MEDS: cefTRIAXone 1,000 MG in Water for inj. (sterile) 10 ML IVP SCH (09:03)
[2022-01-16] MEDS: Doxycycline 100 MG CAPSULE PO SCH ×2 (09:03→20:25)
[2022-01-16] MEDS: Gabapentin 300 MG CAPSULE PO SCH ×3 (09:03→20:25)
[2022-01-16] MEDS: Cholecalciferol (D-3) 1,000 UNIT (25MCG) TABLET PO SCH (09:03)
[2022-01-16] MEDS: Insulin LISPRO 300 UNITS/3 ML VIAL SUBQ SCH ×3 (09:04→17:17)
[2022-01-16] MEDS: Insulin DETEMIR 100 UNIT/ML X5UNITS SUBQ SCH ×2 (09:04→20:26)
[2022-01-16 14:07] LABS: VBG Ionized Calcium 1.17 mmol/L (1.15-1.35)
[2022-01-17] MEDS: Levothyroxine 25 MCG TABLET PO SCH (05:51)
[2022-01-17] MEDS: *HR* Heparin 5,000 UNIT/ML VIAL SQ SCH ×2 (05:52→17:43)
[2022-01-17 07:55] LABS: Basophils # 0.1 K/mcL (0.0-0.2); Basophils % 0.8 %; Eosinophils # 0.8 K/mcL (0.0-0.6); Eosinophils % 4.7 %; Hematocrit 41.5 % (37.5-50.1); Hemoglobin 12.7 g/dL (12.9-16.9); Lymphocytes # 4.3 K/mcL (0.6-4.6); Lymphocytes % 25.2 %; Mean Corpuscular HGB Conc 30.6 g/dL (31.6-35.5); Mean Corpuscular Hemoglobin 27.5 pg (28.0-33.3); Mean Corpuscular Volume 89.8 fL (83.0-100.0); Monocytes # 1.5 K/mcL (0.0-1.3); Monocytes % 8.5 %; Neutrophils # 9.9 K/mcL (1.6-8.9); Platelet Count 474 K/mcL (140-400); Red Blood Count 4.62 M/mcL (4.19-5.50); Segmented Neutrophils % 57.8 %; White Blood Count 17.2 K/mcL (4.3-11.1)
[2022-01-17 08:52] LABS: Calcium 8.2 mg/dL (8.6-10.3); Magnesium 1.5 mg/dL (1.6-2.6); Potassium 4.8 mEq/L (3.5-5.1)
[2022-01-17] MEDS: Insulin LISPRO 300 UNITS/3 ML VIAL SUBQ SCH ×3 (10:10→17:44)
[2022-01-17] MEDS: Cholecalciferol (D-3) 1,000 UNIT (25MCG) TABLET PO SCH (10:10)
[2022-01-17] MEDS: Doxycycline 100 MG CAPSULE PO SCH ×2 (10:10→21:43)
[2022-01-17] MEDS: Gabapentin 300 MG CAPSULE PO SCH ×3 (10:10→21:43)
[2022-01-17] MEDS: Cyanocobalamin (B-12) 1,000 MCG TABLET PO SCH (10:10)
[2022-01-17] MEDS: carvediloL 6.25 MG TABLET PO SCH ×2 (10:12→15:53)
[2022-01-17] MEDS: Insulin DETEMIR 100 UNIT/ML X5UNITS SUBQ SCH ×2 (10:13→21:43)
[2022-01-17] MEDS: Magnesium Oxide 400 MG TABLET PO SCH ×2 (15:52→21:43)
[2022-01-18] MEDS: Levothyroxine 25 MCG TABLET PO SCH (05:25)
[2022-01-18] MEDS: *HR* Heparin 5,000 UNIT/ML VIAL SQ SCH ×2 (05:25→17:52)
[2022-01-18] MEDS: Cholecalciferol (D-3) 1,000 UNIT (25MCG) TABLET PO SCH (09:06)
[2022-01-18] MEDS: Insulin LISPRO 300 UNITS/3 ML VIAL SUBQ SCH ×3 (09:06→17:53)
[2022-01-18] MEDS: Magnesium Oxide 400 MG TABLET PO SCH ×2 (09:06→19:48)
[2022-01-18] MEDS: Doxycycline 100 MG CAPSULE PO SCH ×2 (09:07→19:48)
[2022-01-18] MEDS: Gabapentin 300 MG CAPSULE PO SCH ×3 (09:07→19:48)
[2022-01-18] MEDS: Cyanocobalamin (B-12) 1,000 MCG TABLET PO SCH (09:07)
[2022-01-18] MEDS: carvediloL 6.25 MG TABLET PO SCH ×2 (09:07→17:51)
[2022-01-18] MEDS: Insulin DETEMIR 100 UNIT/ML X5UNITS SUBQ SCH (09:13)
[2022-01-18] MEDS: cefTRIAXone 1,000 MG in Water for inj. (sterile) 10 ML IVP SCH (10:06)
[2022-01-18 18:22] LABS: Influenza A PCR Negative (Negative); Influenza B PCR Negative (Negative); Resp. Syncytial Virus PCR Negative (Negative)
[2022-01-18 18:23] LABS: SARS-CoV-2 by PCR (In House) Negative (Negative)
[2022-01-18 18:59] LABS: Calcium 7.8 mg/dL (8.6-10.3); Potassium 5.4 mEq/L (3.5-5.1)
[2022-01-18 19:12] VITALS: BP 121/66; PULSE 83; TEMP 97; O2SAT 97
== END 2022-01-18 20:45 ==
LOC: EMEROOARM 13:01 → 3NENU 13:01 → 2NENU 15:45
PROVIDERS: ADMIT Internal Medicine; ATTEND Internal Medicine

== ENCOUNTER 2022-02-01 11:30 | Inpatient (IN) ==
[2022-02-01] MEDS ORDERED: 0.9 % Sodium Chloride 1,000 ML IVC ONE (12:00)
[2022-02-01 13:27] LABS: Basophils # 0.1 K/mcL (0.0-0.2); Basophils % 0.6 %; Eosinophils % 6.4 %; Hematocrit 31.9 % (37.5-50.1); Immature Granulocytes % 0.9 % (0-4); Lymphocytes # 3.1 K/mcL (0.6-4.6); Lymphocytes % 20.4 %; Mean Corpuscular Hemoglobin 28.1 pg (28.0-33.3); Mean Corpuscular Volume 90.6 fL (83.0-100.0); Mean Platelet Volume 11.1 fL (9.4-12.4); Monocytes # 1.5 K/mcL (0.0-1.3); Monocytes % 9.8 %; Neutrophils # 9.3 K/mcL (1.6-8.9); Platelet Count 337 K/mcL (140-400); Red Blood Count 3.52 M/mcL (4.19-5.50); Red Cell Distribution Width 19.7 % (11.5-14.5); Segmented Neutrophils % 61.9 %
[2022-02-01 13:28] LABS: Hemoglobin 9.9 g/dL (12.9-16.9)
[2022-02-01 13:46] LABS: INR 1.1; Prothrombin Time 11.7 Seconds (9.4-12.1)
[2022-02-01 13:55] LABS: Alanine Aminotransferase 7 Units/L (7-52); Albumin 2.8 g/dL (3.5-5.7); Albumin/Globulin Ratio 0.9 (1.1-2.2); Alkaline Phosphatase 70 Units/L (34-104); Aspartate Amino Transferase 11 Units/L (13-39); BUN/Creatinine Ratio 15 (6-26); Bilirubin,Total 0.5 mg/dL (0.3-1.0); Blood Urea Nitrogen 76 mg/dL (8-23); Calcium 7.9 mg/dL (8.6-10.3); Carbon Dioxide 24 mEq/L (23-29); Chloride 97 mEq/L (98-107); Creatine Kinase 108 Units/L (30-223); Globulin 3.1 g/dL (2.4-3.5); Glucose 648 mg/dL (70-105); Magnesium 2.3 mg/dL (1.6-2.6); Osmolality,Calculated 319 (280-300); Phosphorous 4.4 mg/dL (2.7-4.5); Potassium 6.6 mEq/L (3.5-5.1); Sodium 128 mEq/L (136-145); Total Protein 5.9 g/dL (6.4-8.9); Troponin I < 0.03 ng/mL (< 0.04)
[2022-02-01 14:00] LABS: Thyroid Stimulating Hormone 0.029 mcIU/mL (0.340-5.600)
[2022-02-01 14:03] LABS: VBG Ionized Calcium 1.07 mmol/L (1.15-1.35)
[2022-02-01] MEDS ORDERED: Furosemide 40 MG/4 ML VIAL IVP ONE (14:32)
[2022-02-01] MEDS ORDERED: 0.9 % Sodium Chloride 1,000 ML IV ONE (14:32)
[2022-02-01] MEDS ORDERED: Calcium Gluconate 1gm/50mL 1 GM/50 ML BAG IVPB ONE (14:33)
[2022-02-01] MEDS ORDERED: Albuterol 2.5 MG/3 ML NEBULIZER IH ONE (14:33)
[2022-02-01] MEDS ORDERED: SODIUM ZIRCONIUM CYCLOSILICATE 5 GM POWD.PACK PO SCH (14:45)
[2022-02-01] MEDS ORDERED: Insulin Human Regular 10 UNIT in 0.9 % Sodium Chloride 10 ML IV ONE (14:57)
[2022-02-01 15:49] LABS: Bilirubin,Urine Negative (Negative); Blood,Urine Small (Negative); Clarity,Urine Clear (Clear); Color,Urine Light-Yellow (Yellow); Glucose,Urine (UA) >=1000 mg/dL (Normal); Ketones,Urine Negative (Negative); Leukocyte Esterase,Urine Large (Negative); Nitrite,Urine Negative (Negative); Protein,Urine Trace mg/dL (Neg-Trace); Renal Epithelial Cells,Urine Few per hpf (None-Few); Specific Gravity,Urine 1.017 (1.010-1.025); Squamous Epithelial Cell,Urine Few per hpf (None-Few); Urobilinogen,Urine Normal (Normal); WBC,Urine 50-100 per hpf (0-3)
[2022-02-01] MEDS ORDERED: D5% in Water 1,000 ML IVC PRN (15:51)
[2022-02-01] MEDS ORDERED: Dextrose Gel 15 GM/37.5 ML TUBE PO PRN ×2 (15:51)
[2022-02-01] MEDS ORDERED: *HR* Dextrose 50 % in Water (Syg) 50 ML SYRINGE IVP PRN (15:51)
[2022-02-01] MEDS ORDERED: Naloxone 0.4 MG/ML INJ IVP PRN (16:25)
[2022-02-01] MEDS ORDERED: Ondansetron 4 MG/2 ML VIAL IVP PRN (16:25)
[2022-02-01 16:26] LABS: Creatinine,Urine 57 mg/dL; Microalbum/Creatinine Ratio,Ur 82 mcg/mg (Less than 30); Microalbumin,Urine 47 mg/L
[2022-02-01] MEDS: 0.9 % Sodium Chloride 1,000 ML IVC SCH (17:27)
[2022-02-01] MEDS ORDERED: Insulin DETEMIR 100 UNIT/ML X5UNITS SUBQ SCH (21:00)
[2022-02-01 21:19] LABS: VBG HCO3 22 mEq/L (21-27); VBG PCO2 41 mmHg (41-51); VBG PH 7.34 pH Units (7.32-7.42); VBG PO2 132 mmHg (25-50)
[2022-02-01 21:22] LABS: Calcium 8.2 mg/dL (8.6-10.3); Potassium 4.9 mEq/L (3.5-5.1); Uric Acid 10.4 mg/dL (2.3-7.6)
[2022-02-01] MEDS: Insulin LISPRO 300 UNITS/3 ML VIAL SUBQ SCH ×2 (22:12→22:26)
[2022-02-01] MEDS: *HR* Heparin 5,000 UNIT/ML VIAL SQ SCH (22:13)
[2022-02-02] MEDS: 0.9 % Sodium Chloride 1,000 ML IVC SCH (00:21)
[2022-02-02] MEDS: *HR* Heparin 5,000 UNIT/ML VIAL SQ SCH ×3 (05:41→21:22)
[2022-02-02 06:45] LABS: Basophils # 0.1 K/mcL (0.0-0.2); Basophils % 0.6 %; Eosinophils # 1.2 K/mcL (0.0-0.6); Hematocrit 33.3 % (37.5-50.1); Hemoglobin 10.3 g/dL (12.9-16.9); Lymphocytes # 2.9 K/mcL (0.6-4.6); Lymphocytes % 24.3 %; Mean Corpuscular HGB Conc 30.9 g/dL (31.6-35.5); Mean Corpuscular Hemoglobin 28.2 pg (28.0-33.3); Mean Corpuscular Volume 91.2 fL (83.0-100.0); Mean Platelet Volume 10.5 fL (9.4-12.4); Monocytes % 8.4 %; Neutrophils # 6.7 K/mcL (1.6-8.9); Platelet Count 288 K/mcL (140-400); Red Blood Count 3.65 M/mcL (4.19-5.50); Red Cell Distribution Width 19.2 % (11.5-14.5); Segmented Neutrophils % 55.7 %
[2022-02-02 07:01] LABS: Calcium 8.1 mg/dL (8.6-10.3); Phosphorous 3.6 mg/dL (2.7-4.5); Potassium 4.8 mEq/L (3.5-5.1)
[2022-02-02] MEDS: Insulin LISPRO 300 UNITS/3 ML VIAL SUBQ SCH ×4 (09:55→21:21)
[2022-02-02] MEDS: Insulin DETEMIR 100 UNIT/ML X5UNITS SUBQ SCH ×2 (09:57→21:22)
[2022-02-02] MEDS: Ampicillin/Sulbactam 1,500 MG in 0.9 % Sodium Chloride Mini Bag 100 ML IVPB SCH (17:37)
[2022-02-03] MEDS: Ampicillin/Sulbactam 1,500 MG in 0.9 % Sodium Chloride Mini Bag 100 ML IVPB SCH ×3 (00:02→14:12)
[2022-02-03] MEDS: *HR* Heparin 5,000 UNIT/ML VIAL SQ SCH ×2 (06:22→14:17)
[2022-02-03] MEDS: Insulin LISPRO 300 UNITS/3 ML VIAL SUBQ SCH ×3 (07:50→16:59)
[2022-02-03] MEDS ORDERED: tiZANidine 4 MG TABLET PO PRN (10:37)
[2022-02-03] MEDS ORDERED: *HR* LORazepam 2 MG/ML VIAL IVP ONE (12:14)
[2022-02-03] MEDS ORDERED: 0.9 % Sodium Chloride 1,000 ML IVC SCH ×2 (12:15→18:15)
[2022-02-03] MEDS: Insulin DETEMIR 100 UNIT/ML X5UNITS SUBQ SCH (14:16)
[2022-02-03] MEDS: Magnesium Oxide 400 MG TABLET PO SCH (14:20)
[2022-02-03 14:49] LABS: Basophils # 0.1 K/mcL (0.0-0.2); Basophils % 0.4 %; Eosinophils # 1.3 K/mcL (0.0-0.6); Eosinophils % 8.5 %; Hemoglobin 10.6 g/dL (12.9-16.9); Immature Granulocytes % 0.9 % (0-4); Lymphocytes # 3.4 K/mcL (0.6-4.6); Lymphocytes % 22.8 %; Mean Corpuscular HGB Conc 31.2 g/dL (31.6-35.5); Mean Corpuscular Hemoglobin 28.3 pg (28.0-33.3); Mean Corpuscular Volume 90.9 fL (83.0-100.0); Mean Platelet Volume 10.4 fL (9.4-12.4); Monocytes # 1.3 K/mcL (0.0-1.3); Monocytes % 8.4 %; Neutrophils # 8.9 K/mcL (1.6-8.9); Platelet Count 368 K/mcL (140-400); Red Blood Count 3.74 M/mcL (4.19-5.50); Red Cell Distribution Width 19.5 % (11.5-14.5)
[2022-02-03 15:07] LABS: Albumin 2.7 g/dL (3.5-5.7); Albumin/Globulin Ratio 0.9 (1.1-2.2); Bilirubin,Total 0.4 mg/dL (0.3-1.0); Calcium 8.1 mg/dL (8.6-10.3); Globulin 3.1 g/dL (2.4-3.5); Potassium 4.5 mEq/L (3.5-5.1); Total Protein 5.8 g/dL (6.4-8.9)
[2022-02-03] MEDS: Piperacillin/Tazobactam 3.375 GM in 0.9 % Sodium Chloride Mini Bag 100 ML IVPB SCH (16:47)
[2022-02-04] MEDS: Insulin DETEMIR 100 UNIT/ML X5UNITS SUBQ SCH ×2 (00:04→09:30)
[2022-02-04] MEDS: Piperacillin/Tazobactam 3.375 GM in 0.9 % Sodium Chloride Mini Bag 100 ML IVPB SCH ×3 (00:04→16:09)
[2022-02-04] MEDS: carvediloL 6.25 MG TABLET PO SCH ×2 (00:04→09:37)
[2022-02-04] MEDS: *HR* Heparin 5,000 UNIT/ML VIAL SQ SCH ×3 (00:04→14:49)
[2022-02-04] MEDS: Insulin LISPRO 300 UNITS/3 ML VIAL SUBQ SCH ×4 (00:04→16:28)
[2022-02-04] MEDS ORDERED: Fenofibrate 54 MG TABLET PO SCH (09:00)
[2022-02-04] MEDS ORDERED: Cyanocobalamin (B-12) 1,000 MCG TABLET PO SCH (09:00)
[2022-02-04] MEDS: Magnesium Oxide 400 MG TABLET PO SCH (09:34)
[2022-02-04 12:22] LABS: Basophils % 0.2 %; Eosinophils # 0.4 K/mcL (0.0-0.6); Eosinophils % 2.2 %; Hematocrit 34.3 % (37.5-50.1); Immature Granulocytes % 0.9 % (0-4); Lymphocytes # 2.4 K/mcL (0.6-4.6); Lymphocytes % 12.7 %; Mean Corpuscular HGB Conc 32.1 g/dL (31.6-35.5); Mean Corpuscular Hemoglobin 28.4 pg (28.0-33.3); Mean Corpuscular Volume 88.6 fL (83.0-100.0); Mean Platelet Volume 10.2 fL (9.4-12.4); Monocytes # 0.8 K/mcL (0.0-1.3); Monocytes % 4.4 %; Neutrophils # 15.2 K/mcL (1.6-8.9); Platelet Count 395 K/mcL (140-400); Red Blood Count 3.87 M/mcL (4.19-5.50); Red Cell Distribution Width 19.2 % (11.5-14.5); Segmented Neutrophils % 79.6 %; White Blood Count 19.1 K/mcL (4.3-11.1)
[2022-02-04] MEDS ORDERED: Fosfomycin Tromethamine 3 GM Packet PO ONE (12:30)
[2022-02-04 12:45] LABS: Albumin 2.8 g/dL (3.5-5.7); Albumin/Globulin Ratio 0.9 (1.1-2.2); Bilirubin,Total 0.6 mg/dL (0.3-1.0); Calcium 7.9 mg/dL (8.6-10.3); Globulin 3.1 g/dL (2.4-3.5); Potassium 4.3 mEq/L (3.5-5.1); Total Protein 5.9 g/dL (6.4-8.9)
[2022-02-04 16:01] VITALS: PULSE 95; TEMP 98; O2SAT 93
[2022-02-04 16:27] VITALS: BP 112/61
== END 2022-02-04 18:04 | disposition home health service (06) | DRG 683 ==
LOC: EMEROOARM 11:30 → 2ANU 11:30 → SUATTDRO 19:46
PROVIDERS: ADMIT Pharmacist; ATTEND Hospitalist